=== PATIENT | male | born 1955 | race Caucasian/White ===

== ENCOUNTER → 2018-04-15 14:18 | Outpatient (CLI) | payer BC, SELFPAY ==
[2017-07-25 09:59] VITALS: BMI 55.3
[2018-04-15 15:59] LABS: Absolute Lymphocyte Count 1.88 X10^3/ul (0.83-4.51); Absolute Neutrophil Count 4.4 X10^3/uL (2.0-7.7); Basophil# 0.04 X10^3/uL; Basophil% 0.5 % (0-1); Eosinophil# 0.37 X10^3/uL; Hematocrit 46.6 % (40-54); Hemoglobin 15.4 g/dl (13.0-16.5); Lymphocyte # 1.88 X10^3/ul (4.0); Lymphocyte % 25.2 % (19-41); Mean Corpuscular Hgb 31.4 pg (27.0-32.0); Mean Corpuscular Volume 94.9 fL (80-94); Mean Platelet Vol. 10.1 fl (6.2-12.0); Monocyte# 0.72 X10^3/uL; Monocyte% 9.7 % (0-10); Neutrophil # 4.44 X10^3/uL (2.7-7.7); Neutrophil % 59.5 % (47-70); Platelet Count 190 K/mm3 (150-450); RBC Distribution Width CV 13.9 % (11.6-14.6); RBC Distribution Width SD 47.2 fl (35.1-43.9); Red Blood Count 4.91 M/mm3 (4.6-6.2); White Blood Count 7.5 K/mm3 (4.4-11.0)
[2018-04-15 16:04] LABS: POSITIVE COUNT NO; POSITIVE DIFFERENTIAL NO; POSITIVE MORPHOLOGY NO
[2018-04-15 16:16] LABS: ALB/GLOB Ratio 1.3 RATIO (0.9-2.4); AST(SGOT) 24 U/L (15-37); Alanine Aminotransfer ALT/SGPT 35 U/L (16-61); Albumin, Serum 3.8 g/dL (3.2-5.0); Alkaline Phosphatase 88 U/L (45-117); Anion Gap 9 (5-15); BUN 14 mg/dL (7-18); BUN/Creat Ratio 14.9 RATIO (10-20); Calcium,Total 8.8 mg/dL (8.5-10.1); Chloride 104 mmol/L (98-107); Creatinine, Serum 0.94 mg/dL (0.70-1.30); EST Glomerular Filtration Rate 87 mL/min (>60); Est Glom Filt Rate - Afr Amer 105 mL/min (>60); Glucose 99 mg/dL (74-106); Magnesium 2.3 mg/dL (1.6-2.6); Potassium 4.1 mmol/L (3.5-5.1); Protein, Total 6.8 g/dL (6.4-8.2); Sodium Level 143 mmol/L (136-145)
== END ==
PROVIDERS: Family Provider Family Medicine; PCP Family Medicine; Visit Provider Family Medicine
DX: R19.7 Diarrhea, unspecified (principal)
CPT/HCPCS: 36415; 80053; 83735; 85025

== ENCOUNTER → 2018-04-16 09:29 | Outpatient (CLI) | payer BC, SELFPAY ==
[2017-07-25 09:59] VITALS: BMI 55.3
[2018-04-21 10:33] LABS: Fats, Neutral Normal (.); Fats, Total Increased (.)
== END ==
PROVIDERS: Family Provider Family Medicine; PCP Family Medicine; Visit Provider Family Medicine
DX: R19.7 Diarrhea, unspecified (principal)
CPT/HCPCS: 82705; 83630; 87177; 87209; 87493; 87506

== ENCOUNTER → 2018-04-23 11:17 | Outpatient (CLI) | payer BC, SELFPAY ==
[2017-07-25 09:59] VITALS: BMI 55.3
--- NOTE | 2018-04-23 11:23 | RAD_ITS ---
STUDY: X-RAY CHEST REASON FOR EXAM: Male, 62 years old. Shortness of breath. TECHNIQUE: PA and lateral views of the chest. COMPARISON: 11/17/2016. FINDINGS: The lungs are clear and expanded. There is no demonstrated pleural abnormality. Normal size heart. Normal mediastinum and demetria. Normal visualized pulmonary arteries. Normal visualized aortic arch and descending thoracic aorta. There are degenerative changes of the visualized thoracic spine. Normal visualized ribs, clavicles, and shoulders. There is no demonstrated abnormality of the visualized soft tissue structures of the upper abdomen. RAD/Chest PA and Lateral IMPRESSION: No active pulmonary disease. Electronically Signed: Christiano Jones MD at 11:26 EST Tel , Service support ,
== END ==
PROVIDERS: Family Provider Family Medicine; PCP Family Medicine; Referring Provider Family Medicine; Visit Provider Family Medicine
DX: R06.02 Shortness of breath (principal)
CPT/HCPCS: 71046

== ENCOUNTER 2018-05-02 10:47 | Inpatient (IN) | payer BC, SELFPAY ==
[2018-05-02] VITALS (22 sets, daily range): BP systolic 100–144; BP diastolic 66–105; PULSE 74–186; RESP 18–31; TEMP 36.3–36.6; O2SAT 93–952; BMI 57.0; BMI 54.3
--- NOTE | 2018-05-02 10:56 | EKG12_ITS ---
Test Reason : CP Blood Pressure : / mmHG Vent. Rate : 151 BPM Atrial Rate : 096 BPM P-R Int : 000 ms QRS Dur : 078 ms QT Int : 328 ms P-R-T Axes : 000 -31 108 degrees QTc Int : 519 ms Atrial fibrillation with rapid ventricular response with premature ventricular or aberrantly conducte d complexes Left axis deviation Low voltage QRS Inferior infarct , age undetermined Cannot rule out Anterior infarct , age undetermined Abnormal ECG Confirmed by ALLISON BUNN, MARIA ISABEL ([id number]), script editor TAMI ALEXIS ([id number]) on 05/03/2018 2:21:27 PM Referred By: Marcus Alexis Confirmed By:MARIA ISABEL COOPER MD
--- NOTE | 2018-05-02 11:09 | RAD_ITS ---
STUDY: X-RAY CHEST REASON FOR EXAM: Male, 62 years old. Chest pain. Cough. TECHNIQUE: Multiple AP frontal views view obtained of the chest. COMPARISON: None. FINDINGS: The lungs are clear and expanded. There is no demonstrated pleural abnormality. Normal size heart. Normal mediastinum and demetria. Normal visualized pulmonary arteries. Normal visualized aortic arch and descending thoracic aorta. Normal visualized thoracic spine. Normal visualized ribs, clavicles, and shoulders. There is no demonstrated abnormality of the visualized soft tissue structures of the upper abdomen. RAD/Chest 1 View (Portable) IMPRESSION: Normal x-ray examination of the chest. Electronically Signed: Axel Segovia, at 11:18 EST Tel , Service support ,
--- NOTE | 2018-05-02 11:13 | CT_ITS ---
We are attempting to reach Min [facility] to discuss findings. An addendum with communication details will be sent when the communication is complete. STUDY: CTA CHEST REASON FOR EXAM: Male, 62 years old. Chest pain. Arrhythmia. History of pulmonary embolism. RADIATION DOSAGE (If Supplied By Facility): CTDIvol = ( 43.32 ) mGy, DLP = ( 798.55 ) mGycm TECHNIQUE: The examination was performed with the intravenous administration of Isovue 370 100 IV. Post-processing of the angiographic images was performed, with multiplanar reformation and 3D reconstruction. Individualized dose optimization techniques were used for this CT. COMPARISON: CT chest dated November 17, 2016 FINDINGS: Prominent filling defects are noted in the right hilar pulmonary arteries extending into the right lower lobe and middle lobe and right upper lobe pulmonary arteries. Filling defect is also noted in the left upper lobe and left lower lobe and lingular pulmonary arteries and in the main left hilar pulmonary artery. There are tiny wedge-shaped areas of consolidation in the lingula, lower lobes bilaterally, and right middle lobe possibly representing small areas of pulmonary infarction. Normal thoracic aorta and visualized great vessels. There is no demonstrated aortic dissection. Normal heart and pericardium. Normal mediastinum. Normal hilar regions. Normal visualized trachea and bronchi. The lungs are well expanded. Normal pulmonary parenchyma. Normal pleura. Normal chest wall structures. Normal osseous structures. Normal visualized upper abdomen. CT/CTA Chest W/WO Contrast IMPRESSION: Prominent pulmonary embolism noted in the pulmonary arteries bilaterally. Possible small parenchymal infarcts peripherally. Electronically Signed: Axel Segovia, at 12:27 EST Tel , Service support ,
--- NOTE | 2018-05-02 11:14 | ED.VISSUMM ---
- ER Visit Summary Date of Service: 05/02/18 Chief Complaint: [] Chest pain shortness of breath cough for about a week History of Present Illness: The patient is a 62 M [] hypertension who reports that basically he has had chest pain shortness of breath and cough for about a week he was seen by physician placed on unspecified medications that really did not help yesterday symptoms and test of intensified he came in today for evaluation, he has no history of [place] PE or DVT, or COPD he is noted to be in A. fib RVR rate 130 does not believe he has a history of A. fib, he has no history of DVT or PE he has had normal bowel bladder habits Physical Examination: [] Heart rate 130 A. fib RVR, pulse ox 92% room air General, no distress resting comfortably HEENT is generally unremarkable The neck is supple no adenopathy Cardiovascular, irregular rate and rhythm 130 Lungs, clear bilateral Abdomen, soft nontender Extremities, edema to his lower extremities Neurologic, awake alert answering questions appropriately moving all 4 extremities Test Results: [] Emergency Department Course and Treatment: [] EKG shows A. fib RVR the etiology is unclear differential is extensive screening labs Cardizem CTA Treatment Plan: [] EKG shows A. fib RVR, the lab studies are generally unremarkable see those reports, the CTA of the chest shows extensive bilateral pulmonary emboli he was started on weight-based heparin for no contraindications we spoke with the hospitalist arrange for admission to ICU for further management all the above he remains awake alert hemodynamically stable Disposition: [] Admit stable Impression: [] Extensive bilateral pulmonary emboli, A. fib RVR This note was generated with [employer] dictation software. It may contain incorrect words, spelling, and punctuation that were not noted in review of the chart prior to signing ED Disposition - Plan for ED Patient: Referrals: Tiarra Bravo MD [Primary Care Provider] -
[2018-05-02] MEDS: dilTIAZem 25 MG/5 ML Vial 20 MG IV BOLUS ×2 (11:15→18:22)
[2018-05-02 11:17] LABS: Absolute Lymphocyte Count 2.85 X10^3/ul (0.83-4.51); Absolute Neutrophil Count 11.6 X10^3/uL (2.0-7.7); Basophil# 0.02 X10^3/uL; Basophil% 0.1 % (0-1); Eosinophil# 0.05 X10^3/uL; Eosinophils% 0.3 % (0-5); Hematocrit 50.2 % (40-54); Hemoglobin 16.3 g/dl (13.0-16.5); Lymphocyte # 2.85 X10^3/ul (4.0); Lymphocyte % 18.1 % (19-41); Mean Corp Hgb Conc 32.5 g/gl (32-36); Mean Corpuscular Hgb 31.3 pg (27.0-32.0); Mean Corpuscular Volume 96.4 fL (80-94); Mean Platelet Vol. 9.9 fl (6.2-12.0); Monocyte# 1.21 X10^3/uL; Monocyte% 7.7 % (0-10); Neutrophil # 11.58 X10^3/uL (2.7-7.7); Neutrophil % 73.5 % (47-70); Platelet Count 247 K/mm3 (150-450); RBC Distribution Width CV 13.8 % (11.6-14.6); RBC Distribution Width SD 48.6 fl (35.1-43.9); Red Blood Count 5.21 M/mm3 (4.6-6.2); White Blood Count 15.8 K/mm3 (4.4-11.0)
--- NOTE | 2018-05-02 11:17 | ED.DCSUM_ITS ---
- ER Visit Summary Date of Service: 05/02/18 Chief Complaint: [] Chest pain shortness of breath cough for about a week History of Present Illness: The patient is a 62 M [] hypertension who reports that basically he has had chest pain shortness of breath and cough for about a week he was seen by physician placed on unspecified medications that really did not help yesterday symptoms and test of intensified he came in today for evaluation, he has no history of [place] PE or DVT, or COPD he is noted to be in A. fib RVR rate 130 does not believe he has a history of A. fib, he has no history of DVT or PE he has had normal bowel bladder habits Physical Examination: [] Heart rate 130 A. fib RVR, pulse ox 92% room air General, no distress resting comfortably HEENT is generally unremarkable The neck is supple no adenopathy Cardiovascular, irregular rate and rhythm 130 Lungs, clear bilateral Abdomen, soft nontender Extremities, edema to his lower extremities Neurologic, awake alert answering questions appropriately moving all 4 extremities Test Results: [] Emergency Department Course and Treatment: [] EKG shows A. fib RVR the etiology is unclear differential is extensive screening labs Cardizem CTA Treatment Plan: [] EKG shows A. fib RVR, the lab studies are generally unremarkable see those reports, the CTA of the chest shows extensive bilateral pulmonary emboli he was started on weight-based heparin for no contraindications we spoke with the hospitalist arrange for admission to ICU for further management all the above he remains awake alert hemodynamically stable Disposition: [] Admit stable Impression: [] Extensive bilateral pulmonary emboli, A. fib RVR This note was generated with [employer] dictation software. It may contain incorrect words, spelling, and punctuation that were not noted in review of the chart prior to signing ED Disposition - Plan for ED Patient: Referrals: Tiarra Bravo MD [Primary Care Provider] -
[2018-05-02 11:18] LABS: POSITIVE COUNT NO; POSITIVE DIFFERENTIAL NO; POSITIVE MORPHOLOGY NO
[2018-05-02 11:30] LABS: Anion Gap 14 (5-15); BUN 19 mg/dL (7-18); BUN/Creat Ratio 12.1 RATIO (10-20); Calcium,Total 8.7 mg/dL (8.5-10.1); Chloride 102 mmol/L (98-107); Creatinine, Serum 1.57 mg/dL (0.70-1.30); EST Glomerular Filtration Rate 48 mL/min (>60); Est Glom Filt Rate - Afr Amer 58 mL/min (>60); Estimated Creatinine Clearance 61.43 ml/min; Glucose 208 mg/dL (74-106); Potassium 3.8 mmol/L (3.5-5.1); Sodium Level 136 mmol/L (136-145)
[2018-05-02] MEDS: Enoxaparin 120 MG/0.8 ML Syringe SC (13:23)
--- NOTE | 2018-05-02 14:05 | ECHOCS_ITS ---
Reason For Study: Afib/Flutter Procedure This was a 2D Doppler, Color Flow transthoracic echocardiogram. Technically difficult study due to patient body habitus. Contrast injection performed,patient scanned sitting up due to SOB and Chest Pain from Bilateral PE's. Exam performed portable in patient room. Left Ventricle Normal LV size. Left ventricular systolic function is lower limits of normal. The estimated ejection fraction is 53 %. Unable to assess diastolic dysfunction due to arrhythmia. No regional wall motion abnormalities noted. Right Ventricle Normal RV size. Normal systolic function. Atria The left atrium is not well visualized. The right atrium is not well visualized. Mitral Valve Mitral valve not well visualized. Tricuspid Valve The tricuspid valve is not well visualized. Unable to estimate RV systolic pressure/pulmonary artery pressure due to technically difficult study. Aortic Valve The aortic valve is not well visualized. Great Vessels Normal aortic root. Pericardium/Pleural No pericardial effusion. Medication Diluted definity 3ml given slow IV push to enhance endocardial definition. MMode/2D Measurements & Calculations Ao root diam: 3.2 cm Doppler Measurements & Calculations MV E max janeen: 58.3 cm/sec Interpretation Summary Normal LV size. Left ventricular systolic function is lower limits of normal. The estimated ejection fraction is 53 %. Unable to assess diastolic dysfunction due to arrhythmia. Contrast injection was performed. Ordering Physician: Seb Cortes Referring Physician: Tiarra Bravo Performed By: Temo Carter RCS
--- NOTE | 2018-05-02 14:21 | HP.PCM_ITS ---
Problem List (1) Central sleep apnea Status: Chronic (2) History of pulmonary embolism Status: Chronic (3) Chest pain Status: Acute Qualifiers: (4) Hypertension Status: Chronic Qualifiers: (5) Morbid obesity Status: Chronic History of Present Illness Date of Admission: 05/02/18 Chief Complaint: Chest pain, shortness of breath. The patient is a 62 year old M who presents emergency room due to 1 week history of chest pain and shortness of breath. He was recently seen as outpatient and thought to have URI. He was placed on steroids and inhaler at that time. His shortness of breath came progressively worse. He was noted to have atrial fibrillation with RVR and extensive bilateral pulmonary emboli in ER. He denies palpitations. He reports he has dyspnea with very minimal activity. He does report he had a brief episode of atrial fibrillation in 2017. He reports it resolved on its own and he had a normal stress test at the time. To his knowledge, he has not had further atrial fibrillation since that time. He denies history of CAD, CHF. Patient reports he has also had a pulmonary embolism in the past, approximately 10 years ago. He reports he was [place] out of the [place] at that time and it was thought to be related to prolonged immobility. He was on Coumadin for acute treatment which was later discontinued. He denies family history of blood clots or clotting disorders. His past medical history includes hypertension, history of pulmonary embolism, central sleep apnea and morbid obesity. Past Medical History Past Medical History (Chronic Problems): Chronic Problems (Last Reviewed 07/25/17 @ 10:23 by JOSE Cade) Morbid obesity (Chronic) Central sleep apnea (Chronic) History of pulmonary embolism (Chronic) Hypertension (Chronic) Medical History: Medical History (Last Reviewed 07/25/17 @ 10:23 by Seb Turcios NP-C) Back pain M54.9 Knee pain M25.569 HTN (hypertension) I10 Allergies Penicillins Allergy (Verified 05/02/18 10:54) Anaphylaxis Sulfa (Sulfonamide Antibiotics) Allergy (Verified 05/02/18 10:54) Hives Home Medications: Ambulatory Orders Medication Instructions Recorded Lisinopril [Zestril] 40 mg PO DAILY 10/13/13 Multivitamin [Daily Multiple 1 ea PO DAILY 04/03/15 Vitamin] ascorbic acid (vitamin C) 500 mg 500 mg PO DAILY 07/25/17 capsule mecobalamin (vitamin B12) 5,000 5,000 mcg PO DAILY 07/25/17 mcg disintegrating tablet Albuterol Inhaler [Ventolin Hfa 2 puff INHALATION Q4H PRN PRN 05/02/18 (SP)] Aspirin [Aspir 81] 81 mg PO DAILY 05/02/18 Cholecalciferol (Vitamin D3) 2,000 unit PO DAILY 05/02/18 [Vitamin D3] Guaifenesin/Pseudoephedrne HCl 1 each PO PRN PRN 05/02/18 [Mucinex D ER 1,200-120 mg Tab] Prednisone 20 mg PO DAILY 05/02/18 proMETHazine/codeine soln 5 ml PO Q4H PRN PRN 05/02/18 [Phenergan with Codeine oral solution] Surgical History: Surgical History (Last Reviewed 07/25/17 @ 10:23 by JOSE Cade) History of back surgery Z98.890 History of knee surgery Z98.890 Surgical History: - - Right knee arthroscopy X3 followed by right total knee replacement, nose fracture surgical repair, L4-L5 and S1 fusion, tonsillectomy and adenoidectomy. Psychiatric History: No pertinent psych hx Lives: Spouse/ Significant Other Smoking Status: Never smoker Alcohol: None Drugs: None - *Family History Maternal History Items: - - from old age. Denies maternal cardiac history. Paternal History Items: - - secondary to glioblastoma. Review of Systems Constitutional: Denies: Chills, Fever, Weight Change HEENT: Denies: Head Aches, Sinus Congestion, Sinus Drainage Cardiovascular: Reports: Chest Pain. Denies: Edema, Palpitations, Syncope Respiratory: Reports: Cough, Shortness of Breath Gastrointestinal: Denies: Abdominal Pain, Nausea, Vomiting Genitourinary: Denies: Dysuria Musculoskeletal: Denies: Joint Pain, Joint Tenderness Skin: Denies: Rash, Wounds Neurological: Denies: Numbness, Tingling, Focal weakness Psychiatric: Denies: Anxiety, Depression, Homicidal Ideations, Suicidal Ideations Hematologic/ Lymphatic: Denies: Easy Bruising, Easy Bleeding VTE Information - Inpt Only VTE Present on Admission: Yes VTE Mechan Device Prophylaxis: None VTE Pharm Prophylaxis ordered?: Yes - Physical Exam General: Alert, Oriented x3, Cooperative HEENT: Atraumatic, PERRLA, EOMI, Normocephalic Neck: Supple, No JVD, Negative Carotid Bruits Lungs: Clear to auscultation, Diminished Cardiovascular: - - Atrial fibrillation, tachycardic Abdomen: Bowel Sounds Present, Soft, Non Tender, Non-Distended, Obese Extremities: No clubbing, No cyanosis, Capillary Refill Less than 3 Seconds, Edema - Nonpitting bilateral lower extremities Skin: No rashes, No breakdown Musculoskeletal: No Tenderness to Palpation of Joints or Extremities Neurological: Cranial nerves II-XII grossly intact, Neuro grossly intact Psych/Mental Status: Normal Affect, Appropriate Vital Signs Temp Pulse Resp BP Pulse Ox 97.6 F L 96 18 124/72 H 96 05/02/18 10:49 05/02/18 13:10 05/02/18 13:10 05/02/18 13:10 05/02/18 13:10 Oxygen Flow Rate (L/min) 2 Oxygen Delivery Method Room Air Weight: 458 lb 1.929 oz Body Mass Index (BMI) 54.3 Laboratory Tests Past 24 Hrs 05/02/18 05/02/18 10:50 10:50 WBC 15.8 H RBC 5.21 Hgb 16.3 Hct 50.2 MCV 96.4 H MCH 31.3 MCHC 32.5 RDW 13.8 RDW Differential 48.6 H Plt Count 247 MPV 9.9 Immature Gran % (Auto) 0.300 Neut % (Auto) 73.5 H Lymph % (Auto) 18.1 L [place] % (Auto) 7.7 Eos % (Auto) 0.3 Baso % (Auto) 0.1 Absolute Neuts (auto) 11.6 H Absolute Lymphs (auto) 2.85 Total Counted Not Reportable Sodium 136 Potassium 3.8 Chloride 102 Carbon Dioxide 20.0 L Anion Gap 14 BUN 19 H Creatinine 1.57 H Estim Creat Clear Calc 61.43 Est GFR (MDRD) Af Amer 58 L Est GFR (MDRD) Non-Af 48 L BUN/Creatinine Ratio 12.1 Glucose 208 H Calcium 8.7 Troponin I 0.075 H Assessment/Plan All Active Problems (Last Reviewed 07/25/17 @ 10:23 by Seb Turcios NP-C) Chest pain (Acute) 1. Extensive bilateral pulmonary emboli-CTA of chest on admission shows prominent pulmonary embolism noted in the pulmonary arteries bilaterally. Possible small parenchymal infarcts peripherally. Initiated on Lovenox therapeutic dosing twice daily. Will transition to Eliquis 10 mg twice daily for 7 days followed by 5 mg twice daily. Echocardiogram ordered. Continue supplement oxygen to maintain O2 at or above 90%. Will need walking pulse ox prior to discharge. 2. New onset atrial fibrillation with RVR-rate greater than 150 on admission. Patient received 20 mg IV Cardizem bolus x1 in ER. Heart rate improved. Patient reports a remote history of atrial fibrillation in the past. May require additional rate control. 3. Acute kidney injury-gentle IV fluids. Trend BMP. 4. Indeterminate troponin-suspect demand ischemia as a result of #2. Cycle enzymes. Patient had a normal stress test October 2016. Cardiology consulted. 5. Elevated glucose-possibly due to recent steroid use. Check hemoglobin A1c. 6. Hypertension-stable, continue home regimen. 7. Central sleep apnea-continue home BIPAP regimen. 8. Obesity-encouraged diet and lifestyle modifications. DVT prophylaxis- Eliquis This patient was seen by JOSE Hair under the supervision of Dr. Cortes.
--- NOTE | 2018-05-02 14:43 | PCM.CONS.C ---
Reason for Consult Date of Consultation: 05/02/18 Reason for Consultation: Shortness of breath and irregular heartbeat. History of Present Illness: The patient is a 62 year old M with no previous cardiac history other than obstructive sleep apnea who says that over the last couple of weeks he has been getting short of breath. He however says that over the last 2 days he has been markedly short of breath and yesterday he could not get any significant rest. Walking from the bedroom to the bathroom because significant symptoms. He had minimal intermittent chest discomfort with no radiation. There was no nausea or diaphoresis near syncope or syncope. This morning due to his marked shortness of breath his neighbor called the EMS who brought him to the ER. He was noted to be in atrial fibrillation with rapid ventricular response rate. A CT of his chest was done which demonstrated bilateral pulmonary emboli. He does a significant amount of travel and is also overweight. He does not use any tobacco products. He has had no previous history of pulmonary emboli. No previous history of DVT is noted though he thinks his calves have been swollen. [] Past Medical History Allergies/Adverse Reactions: Allergies Penicillins Allergy (Verified 05/02/18 10:54) Anaphylaxis Sulfa (Sulfonamide Antibiotics) Allergy (Verified 05/02/18 10:54) Hives Home Medications: Ambulatory Orders Medication Instructions Recorded Lisinopril [Zestril] 40 mg PO DAILY 10/13/13 Multivitamin [Daily Multiple 1 ea PO DAILY 04/03/15 Vitamin] ascorbic acid (vitamin C) 500 mg 500 mg PO DAILY 07/25/17 capsule mecobalamin (vitamin B12) 5,000 5,000 mcg PO DAILY 07/25/17 mcg disintegrating tablet Albuterol Inhaler [Ventolin Hfa 2 puff INHALATION Q4H PRN PRN 05/02/18 (SP)] Aspirin [Aspir 81] 81 mg PO DAILY 05/02/18 Cholecalciferol (Vitamin D3) 2,000 unit PO DAILY 05/02/18 [Vitamin D3] Guaifenesin/Pseudoephedrne HCl 1 each PO PRN PRN 05/02/18 [Mucinex D ER 1,200-120 mg Tab] Prednisone 20 mg PO DAILY 05/02/18 proMETHazine/codeine soln 5 ml PO Q4H PRN PRN 05/02/18 [Phenergan with Codeine oral solution] Past Medical History (Chronic Problems): Chronic Problems (Last Reviewed 07/25/17 @ 10:23 by JOSE Cade) Central sleep apnea (Chronic) History of pulmonary embolism (Chronic) Hypertension (Chronic) Surgical History: - - Right knee arthroscopy X2, nose fracture surgical repair, L4-L5 and S1 fusion. Psychiatric History: No pertinent psych hx - *Family History Maternal History Items: No pertinent history Paternal History Items: No pertinent history Lives: Spouse/ Significant Other Smoking Status: Never smoker Alcohol: None Drugs: None Review of Systems - Review of Systems General: Reports: Fatigue. Denies: Fever, Night Sweats HEENT: Denies: Vision Change Cardiovascular: Reports: Chest Discomfort at Rest, Shortness of Breath, Shortness of Breath at Rest, Shortness of Breath with Exertion, Palpitations. Denies: Chest Discomfort, Orthopnea, PND, Peripheral Edema, Lightheadedness, Dizziness, Near Syncope, Syncope Respiratory: Denies: Cough, Sputum Production, Hemoptysis Gastrointestinal: Denies: Hematemesis, Hematochezia, Melena Genitourinary: Denies: Dysuria, Hematuria Muscoloskeletal: Denies: Myalgias Skin: Denies: Rash Neurological: Denies: Dizziness Psychiatric: Denies: Anxiety Endocrine: Denies: Unexplained Weight Loss Hematologic/ Lymphatic: Denies: Anemia Subjectve: Pleasant gentleman in mild respiratory distress with difficulty speaking in full sentences Objective: Vital Signs Temp Pulse Resp BP Pulse Ox 97.4 F L 78 20 H 134/66 H 96 05/02/18 14:00 05/02/18 14:00 05/02/18 14:00 05/02/18 14:00 05/02/18 14:00 Oxygen Flow Rate (L/min) 4 Oxygen Delivery Method Nasal Cannula Weight: 458 lb 1.929 oz Body Mass Index (BMI) 54.3 General: Awake, Alert, Oriented x 3 HEENT: PERRL, EOMI, Sclera Non Icteric Neck: Supple, Good ROM, No Lymph Node Enlargement Lungs: Diminished Adriano Bases Cardiovascular: Irregular Rhythm, Normal S1, Normal S2, No Murmurs, No Rubs, No Gallops Vascular: No Carotid Bruits, Normal Femoral Pulses, Normal Radial Pulses, Normal Dorsalis Pedal Pulse, Normal Posterior Tibial Pulses Abdomen: Bowel Sounds Present, Soft, Non Tender, No HSM, No Organomegaly Extremities: No Cyanosis, No Clubbing, No edema Musculoskeletal: No Erythema Skin: No Rashes Lymphatic: No Lymph Node Enlargement Neurological: No Focal Motor or Sensory Deficit Psych/Mental Status: Appropriate 05/02/18 10:50: WBC 15.8 H, RBC 5.21, Hgb 16.3, Hct 50.2, MCV 96.4 H, MCH 31.3, MCHC 32.5, RDW 13.8, RDW Differential 48.6 H, Plt Count 247, MPV 9.9, Immature Gran % (Auto) 0.300, Neut % (Auto) 73.5 H, Lymph % (Auto) 18.1 L, [place] % (Auto) 7.7, Eos % (Auto) 0.3, Baso % (Auto) 0.1, Absolute Neuts (auto) 11.6 H, Total Counted Not Reportable 05/02/18 10:50: Sodium 136, Potassium 3.8, Chloride 102, Carbon Dioxide 20.0 L, Anion Gap 14, BUN 19 H, Creatinine 1.57 H, Est GFR (MDRD) Af Amer 58 L, Est GFR (MDRD) Non-Af 48 L, BUN/Creatinine Ratio 12.1, Glucose 208 H, Calcium 8.7, Troponin I 0.075 H Rhythm: EKG: Atrial fibrillation with a rapid ventricular response rate of 151 bpm Assessment/Plan 1. New onset atrial fibrillation Patient appears to have developed new onset atrial fibrillation with rapid ventricular response rate. The etiology of the above is likely secondary to his underlying pulmonary embolism. The exact duration is not clear at this particular time. The patient will be treated with anticoagulation as per PE regimen and his ventricular rate response controlled. An echocardiogram should be performed to assess his left ventricular function. 2. Acute bilateral pulmonary emboli He does have the substrate with obesity for pulmonary emboli. This appears to be fairly acute or subacute. He will be treated with Lovenox and subsequently apixaban. His mild troponin elevation is likely secondary to right ventricular strain. Doubt that there is any acute coronary ischemia present. 3. Shortness of breath He appears to be short of breath out of proportion to his pulmonary emboli. I would recommend that we obtain a natruretic peptide level and obtain an echocardiogram to assess his left ventricular function. If his natruretic peptide level is elevated we may need to treat him with diuretics gently. 4. Hypertension Does have a history of systemic hypertension. We will continue his CHANCE inhibitor. Thank you for allowing me to participate in the care of your patient. Please don't hesitate to call if any issues arise
--- NOTE | 2018-05-02 14:55 | CON.PCM_ITS ---
Reason for Consult Date of Consultation: 05/02/18 Reason for Consultation: Shortness of breath and irregular heartbeat. History of Present Illness: The patient is a 62 year old M with no previous cardiac history other than obstructive sleep apnea who says that over the last couple of weeks he has been getting short of breath. He however says that over the last 2 days he has been markedly short of breath and yesterday he could not get any significant rest. Walking from the bedroom to the bathroom because significant symptoms. He had minimal intermittent chest discomfort with no radiation. There was no nausea or diaphoresis near syncope or syncope. This morning due to his marked shortness of breath his neighbor called the EMS who brought him to the ER. He was noted to be in atrial fibrillation with rapid ventricular response rate. A CT of his chest was done which demonstrated bilateral pulmonary emboli. He does a significant amount of travel and is also overweight. He does not use any tobacco products. He has had no previous history of pulmonary emboli. No pre vious history of DVT is noted though he thinks his calves have been swollen. [] Past Medical History Allergies/Adverse Reactions: Allergies Penicillins Allergy (Verified 05/02/18 10:54) Anaphylaxis Sulfa (Sulfonamide Antibiotics) Allergy (Verified 05/02/18 10:54) Hives Home Medications: Ambulatory Orders Medication Instructions Recorded Lisinopril [Zestril] 40 mg PO DAILY 10/13/13 Multivitamin [Daily Multiple 1 ea PO DAILY 04/03/15 Vitamin] ascorbic acid (vitamin C) 500 mg 500 mg PO DAILY 07/25/17 capsule mecobalamin (vitamin B12) 5,000 5,000 mcg PO DAILY 07/25/17 mcg disintegrating tablet Albuterol Inhaler [Ventolin Hfa 2 puff INHALATION Q4H PRN PRN 05/02/18 (SP)] Aspirin [Aspir 81] 81 mg PO DAILY 05/02/18 Cholecalciferol (Vitamin D3) 2,000 unit PO DAILY 05/02/18 [Vitamin D3] Guaifenesin/Pseudoephedrne HCl 1 each PO PRN PRN 05/02/18 [Mucinex D ER 1,200-120 mg Tab] Prednisone 20 mg PO DAILY 05/02/18 proMETHazine/codeine soln 5 ml PO Q4H PRN PRN 03/03/19 [Phenergan with Codeine oral solution] Past Medical History (Chronic Problems): Chronic Problems (Last Reviewed 07/25/17 @ 10:23 by JOSE Cade) Central sleep apnea (Chronic) History of pulmonary embolism (Chronic) Hypertension (Chronic) Surgical History: - - Right knee arthroscopy X2, nose fracture surgical repair, L4-L5 and S1 fusion. Psychiatric History: No pertinent psych hx - *Family History Maternal History Items: No pertinent history Paternal History Items: No pertinent history Lives: Spouse/ Significant Other Smoking Status: Never smoker Alcohol: None Drugs: None Review of Systems - Review of Systems General: Reports: Fatigue. Denies: Fever, Night Sweats HEENT: Denies: Vision Change Cardiovascular: Reports: Chest Discomfort at Rest, Shortness of Breath, Shortness of Breath at Rest, Shortness of Breath with Exertion, Palpitations. Denies: Chest Discomfort, Orthopnea, PND, Peripheral Edema, Lightheadedness, Dizziness, Near Syncope, Syncope Respiratory: Denies: Cough, Sputum Production, Hemoptysis Gastrointestinal: Denies: Hematemesis, Hematochezia, Melena Genitourinary: Denies: Dysuria, Hematuria Muscoloskeletal: Denies: Myalgias Skin: Denies: Rash Neurological: Denies: Dizziness Psychiatric: Denies: Anxiety Endocrine: Denies: Unexplained Weight Loss Hematologic/ Lymphatic: Denies: Anemia Subjectve: Pleasant gentleman in mild respiratory distress with difficulty speaking in full sentences Objective: Vital Signs Temp Pulse Resp BP Pulse Ox 97.4 F L 78 20 H 134/66 H 96 05/02/18 14:00 05/02/18 14:00 05/02/18 14:00 05/02/18 14:00 05/02/18 14:00 Oxygen Flow Rate (L/min) 4 Oxygen Delivery Method Nasal Cannula Weight: 458 lb 1.929 oz Body Mass Index (BMI) 54.3 General: Awake, Alert, Oriented x 3 HEENT: PERRL, EOMI, Sclera Non Icteric Neck: Supple, Good ROM, No Lymph Node Enlargement Lungs: Diminished Adriano Bases Cardiovascular: Irregular Rhythm, Normal S1, Normal S2, No Murmurs, No Rubs, No Gallops Vascular: No Carotid Bruits, Normal Femoral Pulses, Normal Radial Pulses, Normal Dorsalis Pedal Pulse, Normal Posterior Tibial Pulses Abdomen: Bowel Sounds Present, Soft, Non Tender, No HSM, No Organomegaly Extremities: No Cyanosis, No Clubbing, No edema Musculoskeletal: No Erythema Skin: No Rashes Lymphatic: No Lymph Node Enlargement Neurological: No Focal Motor or Sensory Deficit Psych/Mental Status: Appropriate 05/02/18 10:50: WBC 15.8 H, RBC 5.21, Hgb 16.3, Hct 50.2, MCV 96.4 H, MCH 31.3, MCHC 32.5, RDW 13.8, RDW Differential 48.6 H, Plt Count 247, MPV 9.9, Immature Gran % (Auto) 0.300, Neut % (Auto) 73.5 H, Lymph % (Auto) 18.1 L, Scott % (Auto) 7.7, Eos % (Auto) 0.3, Baso % (Auto) 0.1, Absolute Neuts (auto) 11.6 H, Total Counted Not Reportable 05/02/18 10:50: Sodium 136, Potassium 3.8, Chloride 102, Carbon Dioxide 20.0 L, Anion Gap 14, BUN 19 H, Creatinine 1.57 H, Est GFR (MDRD) Af Amer 58 L, Est GFR (MDRD) Non-Af 48 L, BUN/Creatinine Ratio 12.1, Glucose 208 H, Calcium 8.7, Troponin I 0.075 H Rhythm: EKG: Atrial fibrillation with a rapid ventricular response rate of 151 bpm Assessment/Plan 1. New onset atrial fibrillation * Patient appears to have developed new onset atrial fibrillation with rapid ventricular response rate. The etiology of the above is likely secondary to his underlying pulmonary embolism. The exact duration is not clear at this particular time. * The patient will be treated with anticoagulation as per PE regimen and his ventricular rate response controlled. * An echocardiogram should be performed to assess his left ventricular function. * 2. Acute bilateral pulmonary emboli * He does have the substrate with obesity for pulmonary emboli. This appears to be fairly acute or subacute. He will be treated with Lovenox and subsequently apixaban. * His mild troponin elevation is likely secondary to right ventricular strain. Doubt that there is any acute coronary ischemia present. * 3. Shortness of breath * He appears to be short of breath out of proportion to his pulmonary emboli. I would recommend that we obtain a natruretic peptide level and obtain an echocardiogram to assess his left ventricular function. If his natruretic peptide level is elevated we may need to treat him with diuretics gently. * 4. Hypertension * Does have a history of systemic hypertension. * We will continue his CHANCE inhibitor. * * Thank you for allowing me to participate in the care of your patient. Please don't hesitate to call if any issues arise
[2018-05-02 15:22] LABS: Hemoglobin A1c 5.9 % (4.2-6.3)
[2018-05-02 15:26] LABS: BNP,B-Type NATRIURETIC PEPTIDE 288.3 pg/mL (0-100)
[2018-05-02] MEDS: Metoprolol Tartrate 25 MG Tablet PO (16:35)
[2018-05-02] MEDS: 0.9% Normal Saline 1,000 ML 60 ML IV (17:42)
[2018-05-02] MEDS: 0.9% NaCl Peripheral Flush Adult/Peds IV ×3 (17:54→21:04)
[2018-05-02] MEDS: Furosemide 40 MG/4 ML Vial IV (21:04)
[2018-05-02] MEDS: APIXABAN 5 MG TABLET 10 MG PO (21:05)
[2018-05-02] MEDS: Acetaminophen 325 MG Tablet 650 MG PO (21:11)
[2018-05-03] VITALS (22 sets, daily range): BP systolic 90–135; BP diastolic 69–105; PULSE 77–110; RESP 19–30; TEMP 36.4–36.9; O2SAT 77–98
[2018-05-03 06:23] LABS: Anion Gap 10 (5-15); BUN 19 mg/dL (7-18); BUN/Creat Ratio 20.4 RATIO (10-20); Calcium,Total 8.6 mg/dL (8.5-10.1); Chloride 104 mmol/L (98-107); Creatinine, Serum 0.93 mg/dL (0.70-1.30); EST Glomerular Filtration Rate 88 mL/min (>60); Est Glom Filt Rate - Afr Amer 106 mL/min (>60); Estimated Creatinine Clearance 106.45 ml/min; Glucose 100 mg/dL (74-106); Sodium Level 140 mmol/L (136-145)
--- NOTE | 2018-05-03 07:02 | PN.CARD_ITS ---
Subjectve: Patient seen and evaluated. Appears to be breathing somewhat better. Heart rate better controlled Objective: Vital Signs Temp Pulse Resp BP Pulse Ox 97.6 F L 87 20 H 112/83 H 95 05/03/18 06:00 05/03/18 06:00 05/03/18 06:00 05/03/18 06:00 05/03/18 06:00 Oxygen Flow Rate (L/min) 4 Oxygen Delivery Method CPAP Weight: 458 lb 1.929 oz Body Mass Index (BMI) 54.3 Intake and Output for Last 24 Hours 05/01/18 05/02/18 05/03/18 23:59 23:59 23:59 Intake Total 120 / 120 778.9 / 778.9 Output Total 1400 / 1400 Balance 120 / 120 -621.1 / -621.1 General: Awake, Alert, Oriented x 3, Obese HEENT: PERRL, EOMI, Sclera Non Icteric Neck: Supple, Good ROM, No Lymph Node Enlargement Lungs: Diminished Adriano Bases Cardiovascular: Irregular Rhythm, Normal S1, Normal S2, No Murmurs, No Rubs, No Gallops Vascular: No Carotid Bruits, Normal Femoral Pulses, Normal Radial Pulses, Normal Dorsalis Pedal Pulse, Normal Posterior Tibial Pulses Abdomen: Bowel Sounds Present, Soft, Non Tender, No HSM, No Organomegaly Extremities: No Cyanosis, No Clubbing, Bilateral Edema +1 Musculoskeletal: No Erythema Skin: No Rashes Neurological: No Focal Motor or Sensory Deficit Psych/Mental Status: Appropriate 05/02/18 10:50: WBC 15.8 H, RBC 5.21, Hgb 16.3, Hct 50.2, MCV 96.4 H, MCH 31.3, MCHC 32.5, RDW 13.8, RDW Differential 48.6 H, Plt Count 247, MPV 9.9, Immature Gran % (Auto) 0.300, Neut % (Auto) 73.5 H, Lymph % (Auto) 18.1 L, [place] % (Auto) 7.7, Eos % (Auto) 0.3, Baso % (Auto) 0.1, Absolute Neuts (auto) 11.6 H, Total Counted Not Reportable 05/02/18 10:50: Sodium 136, Potassium 3.8, Chloride 102, Carbon Dioxide 20.0 L, Anion Gap 14, BUN 19 H, Creatinine 1.57 H, Est GFR (MDRD) Af Amer 58 L, Est GFR (MDRD) Non-Af 48 L, BUN/Creatinine Ratio 12.1, Glucose 208 H, Calcium 8.7, Troponin I 0.075 H 05/02/18 10:50: B-Natriuretic Peptide 288.3 H 05/02/18 10:50: Hemoglobin A1c 5.9 05/02/18 14:40: Troponin I 0.105 H 05/02/18 17:20: Troponin I 0.089 H 05/03/18 05:35: Sodium 140, Potassium 4.0, Chloride 104, Carbon Dioxide 26.0, Anion Gap 10, BUN 19 H, Creatinine 0.93, Est GFR (MDRD) Af Amer 106, Est GFR (MDRD) Non-Af 88, BUN/Creatinine Ratio 20.4 H, Glucose 100, Calcium 8.6 Rhythm: EKG: ECHO: Stress Test: Cardiac Cath: PCI: CT Surgery: Holter monitor: EPS: PPM: CXR: Chest CT Scan: Medical Necessity - Tobacco Use Smoking Status: Never smoker Assessment/Plan 1. New onset atrial fibrillation * Patient appears to have developed new onset atrial fibrillation with rapid ventricular response rate. The etiology of the above is likely secondary to his underlying pulmonary embolism. The exact duration is not clear at this particular time. * The patient will be treated with anticoagulation as per PE regimen and his ventricular rate response controlled. * An echocardiogram should be performed to assess his left ventricular function. * Will be started on a beta-jhon and his IV Cardizem discontinued 2. Acute bilateral pulmonary emboli * He does have the substrate with obesity for pulmonary emboli. This appears to be fairly acute or subacute. He will be treated with Lovenox and subsequently apixaban. * His mild troponin elevation is likely secondary to right ventricular strain. Doubt that there is any acute coronary ischemia present. * 3. Shortness of breath * He appears to be short of breath out of proportion to his pulmonary emboli. * He appears to be in mild congestive heart failure and responded well to IV diuresis. We will continue today and assess left ventricular function. 4. Hypertension * Does have a history of systemic hypertension. * We will continue his CHANCE inhibitor. * * Thank you for allowing me to participate in the care of your patient. Please don't hesitate to call if any issues arise
[2018-05-03] MEDS: Furosemide 40 MG/4 ML Vial IV (07:15)
--- NOTE | 2018-05-03 08:15 | EKG12_ITS ---
Test Reason : CHEST PAIN Blood Pressure : / mmHG Vent. Rate : 097 BPM Atrial Rate : 100 BPM P-R Int : 000 ms QRS Dur : 084 ms QT Int : 370 ms P-R-T Axes : 000 -19 184 degrees QTc Int : 469 ms Atrial fibrillation Low voltage QRS Nonspecific T wave abnormality Prolonged QT Abnormal ECG When compared with ECG of 02-MAY-2018 14:45, MANUAL COMPARISON REQUIRED, DATA IS UNCONFIRMED Confirmed by ALLISON BUNN, MARIA ISABEL ([id number]), purchase request editor TAMI ALEXIS ([id number]) on 05/04/2018 12:58:55 PM Referred By: Marcus Alexis Confirmed By:MARIA ISABEL COOPER MD
--- NOTE | 2018-05-03 08:16 | CPS ---
upon entering room pt was sitting on side of bed with no cpap or nasal cannula on. Room air saturation was 77%. Pt stated he just used urinal. Pt placed cpap back on with 4lpm bleed in. Pt did c/o dizziness and was instructed to lay back in bed so he did not fall off side of bed. Saturation back up into 90's on Cpap. Pt's nurse informed of above events.
[2018-05-03] MEDS: APIXABAN 5 MG TABLET 10 MG PO ×2 (09:45→22:57)
[2018-05-03] MEDS: Metoprolol Tartrate 50 MG Tablet PO ×2 (09:45→22:57)
[2018-05-03] MEDS: Lisinopril 20 MG Tablet PO (09:45)
[2018-05-03] MEDS: Acetaminophen 325 MG Tablet 650 MG PO ×2 (11:14→17:49)
--- NOTE | 2018-05-03 12:00 | CASEMGMT ---
BABAK ARORA assessment: Face to Face with patient for initial transition planning/care coordination assessment. BABAK ARORA introduced self and role at [facility], pt voices understanding and consents to assessment at this time. Pt is sitting up in bed in no distress at this time. Pt is A/Ox4 at this time and answers all questions appropriately at this time. Care providers, pharmacy, and demographics verified at this time. PCP: Shelly Specialists: chris Fishman Preferred Pharmacy: [facility] Insurance: [facility] Prescription Benefit: [employer] Living Will/HPOA: Pt states has LW/HPOA and is aware that they are not currently on file at [facility] at this time. Pt states that his , Homa is HPOA. LNOK: Homa Berry, ; Sharita Berry, daughter Living Arrangements: Pt states lives with on main level of 2 story home and states no concerns at home at this time. Pt states is independent with ADL's. Transportation: Pt states drives self and states no transportation concerns at this time. DME/HHC: Pt states has CPAP thru [employer] and states no need for any further DME at this time. Pt states no hx of HHC or SNF in the past. Pt states no concerns with going home at time of discharge. 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 Pt states does not smoke or drink ETOH. Pt states no further concerns/needs at this time. CM to follow for Eliquis pricing, home oxygen, and for any further discharge planning/needs. Advised pt to ask for CM if any further questions/concerns/needs arise, voices understanding. Plan: Home [place] BABAK ARORA
--- NOTE | 2018-05-03 12:37 | PCM.PROGNOTE ---
Subjective: Patient seen and examined. Complains of continued shortness of breath and chest pain. Shortness of breath not significantly improved. - Physical Exam General: Alert, Oriented x3, Cooperative HEENT: Atraumatic, PERRLA, EOMI, Normocephalic Neck: Supple, No JVD, Negative Carotid Bruits Lungs: Clear to auscultation, Diminished Cardiovascular: - - Atrial fibrillation, rate controlled. Abdomen: Bowel Sounds Present, Soft, Non Tender, Non-Distended, Obese Extremities: No clubbing, No cyanosis, Capillary Refill Less than 3 Seconds, Edema - Bilateral lower extremity, nonpitting. Skin: No rashes, No breakdown Musculoskeletal: No Tenderness to Palpation of Joints or Extremities Neurological: Cranial nerves II-XII grossly intact, Neuro grossly intact Psych/Mental Status: Normal Affect, Appropriate Vital Signs Temp Pulse Resp BP Pulse Ox 97.9 F 94 19 H 117/89 H 97 05/03/18 11:00 05/03/18 11:09 05/03/18 11:00 05/03/18 11:00 05/03/18 11:00 Oxygen Flow Rate (L/min) 4 Oxygen Delivery Method Nasal Cannula Weight: 458 lb 1.929 oz Body Mass Index (BMI) 54.3 Intake and Output for Last 24 Hours 05/01/18 05/02/18 05/03/18 23:59 23:59 23:59 Intake Total 120 / 120 1403.9 / 1403.9 Output Total 2500 / 2500 Balance 120 / 120 -1096.1 / -1096.1 Laboratory Tests Past 24 Hrs 05/02/18 05/02/18 05/02/18 10:50 10:50 14:40 Sodium Potassium Chloride Carbon Dioxide Anion Gap BUN Creatinine Estim Creat Clear Calc Est GFR (MDRD) Af Amer Est GFR (MDRD) Non-Af BUN/Creatinine Ratio Glucose Hemoglobin A1c 5.9 Calcium Troponin I 0.105 H B-Natriuretic Peptide 288.3 H 05/02/18 05/03/18 17:20 05:35 Sodium 140 Potassium 4.0 Chloride 104 Carbon Dioxide 26.0 Anion Gap 10 BUN 19 H Creatinine 0.93 Estim Creat Clear Calc 106.45 Est GFR (MDRD) Af Amer 106 Est GFR (MDRD) Non-Af 88 BUN/Creatinine Ratio 20.4 H Glucose 100 Hemoglobin A1c Calcium 8.6 Troponin I 0.089 H B-Natriuretic Peptide Medical Necessity - Tobacco Use Smoking Status: Never smoker Assessment/Plan All Active Problems (Last Reviewed 07/25/17 @ 10:23 by JOSE Cade) Chest pain (Acute) 1. Acute hypoxic respiratory insufficiency secondary to extensive bilateral pulmonary emboli-CTA of chest on admission shows prominent pulmonary embolism noted in the pulmonary arteries bilaterally. Possible small parenchymal infarcts peripherally. Eliquis 10 mg twice daily for 7 days followed by 5 mg twice daily. Echocardiogram showed an EF of 53%. Continue supplement oxygen to maintain O2 at or above 90%. Will need walking pulse ox prior to discharge. 2. New onset atrial fibrillation with RVR-rate greater than 150 on admission. Patient received 20 mg IV Cardizem bolus x1 in ER followed by Cardizem drip. Cardizem discontinued and patient initiated on metoprolol 50 mg twice daily. Patient reports a remote history of atrial fibrillation in the past. Heart rate improved. 3. Acute kidney injury-resolved with IV fluids. 4. Indeterminate troponin-suspect demand ischemia as a result of #2. Enzymes did not trend. Patient had a normal stress test October 2016. Cardiology consulted. 5. Elevated glucose-due to recent steroid use. Hemoglobin A1c 5.9%. 6. Hypertension-stable, continue home lisinopril regimen. 7. Central sleep apnea-continue home BIPAP regimen. 8. Obesity-encouraged diet and lifestyle modifications. DVT prophylaxis- Fatmata This patient was seen by JOSE Hair under the supervision of Dr. Cortes.
--- NOTE | 2018-05-03 13:25 | SLEEP ---
Patient contacted to see if a retitration study was indicated d/t dx AFIB w RVR on admission. He spoke americo Clemente ( caravan park and camping ground manager). She explained reti indicated if return of signs/symptoms or trouble with compliance. He is wearing his bipap 100% of the past 30 nights via download of information. Settings are . He denies any return of s/s at this time. This information was communicated to his nurse Yuko as well as NESSA Nathan
[2018-05-04] VITALS (10 sets, daily range): BP systolic 104–132; BP diastolic 78–90; PULSE 63–106; RESP 18–25; TEMP 35.7–36.7; O2SAT 89–98
--- NOTE | 2018-05-04 08:13 | CPS ---
4LPM BLEED IN TO HOME UNIT
--- NOTE | 2018-05-04 08:59 | PN.CARD_ITS ---
Subjectve: Patient seen and evaluated. Appears to be breathing somewhat better. However still short of breath. Objective: Vital Signs Temp Pulse Resp BP Pulse Ox 97.6 F L 83 25 H 104/79 98 05/04/18 06:22 05/04/18 06:59 05/04/18 06:22 05/04/18 06:22 05/04/18 08:00 Oxygen Flow Rate (L/min) [At 4 REST on Room Air] Oxygen Flow Rate (L/min) [ 6 AMBULATION with Oxygen] Oxygen Flow Rate (L/min) [ 4 AMBULATING on Room Air] Oxygen Flow Rate (L/min) 4 Oxygen Delivery Method CPAP Weight: 458 lb 1.929 oz Body Mass Index (BMI) 54.3 Intake and Output for Last 24 Hours 05/02/18 05/03/18 05/04/18 23:59 23:59 23:59 Intake Total 120 / 120 2168.9 / 2168.9 0 / 0 Output Total 2800 / 2800 Balance 120 / 120 -631.1 / -631.1 0 / 0 General: Awake, Alert, Oriented x 3 HEENT: PERRL, EOMI, Sclera Non Icteric Neck: Supple, Good ROM, No Lymph Node Enlargement Lungs: Diminished Adriano Bases Cardiovascular: Irregular Rhythm, Normal S1, Normal S2, No Murmurs, No Rubs, No Gallops Vascular: No Carotid Bruits, Normal Femoral Pulses, Normal Radial Pulses, Normal Dorsalis Pedal Pulse, Normal Posterior Tibial Pulses Abdomen: Bowel Sounds Present, Soft, Non Tender, No HSM, No Organomegaly Extremities: No Cyanosis, No Clubbing, Bilateral Edema +1 Neurological: No Focal Motor or Sensory Deficit Psych/Mental Status: Appropriate Rhythm: EKG: ECHO: Stress Test: Cardiac Cath: PCI: CT Surgery: Holter monitor: EPS: PPM: CXR: Chest CT Scan: Medical Necessity - Tobacco Use Smoking Status: Never smoker Assessment/Plan 1. New onset atrial fibrillation * Patient appears to have developed new onset atrial fibrillation with rapid ventricular response rate. The etiology of the above is likely secondary to his underlying pulmonary embolism. The exact duration is not clear at this pa rticular time. * The patient will be treated with anticoagulation as per PE regimen and his ventricular rate response controlled. * An echocardiogram should be performed to assess his left ventricular function. * Will be started on a beta-jhon 2. Acute bilateral pulmonary emboli * He does have the substrate with obesity for pulmonary emboli. This appears to be fairly acute or subacute. He will be treated with Lovenox and subsequently apixaban. * His mild troponin elevation is likely secondary to right ventricular strain. Doubt that there is any acute coronary ischemia present. * 3. Shortness of breath * He appears to be short of breath out of proportion to his pulmonary emboli. * He appears to be in mild congestive heart failure and responded well to IV diuresis. * His echocardiogram done demonstrated mild global reduction in left ventricular systolic function. 4. Hypertension * Does have a history of systemic hypertension. * We will continue his CHANCE inhibitor. * * * Above discussed with the hospitalist. Would follow-up in office in 2-4 weeks. * Thank you for allowing me to participate in the care of your patient. Please don't hesitate to call if any issues arise
[2018-05-04] MEDS: Metoprolol Tartrate 50 MG Tablet PO (10:28)
[2018-05-04] MEDS: APIXABAN 5 MG TABLET 10 MG PO (10:28)
[2018-05-04] MEDS: Lisinopril 20 MG Tablet PO (10:28)
--- NOTE | 2018-05-04 10:53 | CASEMGMT ---
Fatmata e-scribed to [facility] retail pharm previously. Call to Dejan at [facility] retail [facility] and he states that pt has no co-pay for Eliquis at this time. Per Shruthi HILLIARD, pt did not qualify for home oxygen at this time. She states that the lowest pt dropped while walking was 89%. Diamante OLVERAC aware, voices understanding. Phani HILLIARD CM
--- NOTE | 2018-05-04 11:19 | DCINST_ITS ---
- Discharge Diagnoses Current Active Problems: Current Active and Chronic Problems (Last Reviewed 07/25/17 @ 10:23 by JOSE Cade) New onset atrial fibrillation Morbid obesity (Chronic) Bilateral pulmonary emboli Central Sleep Apnea Hypertension You will use the following diet at home:: Calorie/Carbohydrate Controlled (specify 1200, 1400, etc) Discharge Activity: Return to Normal Activity Call your doctor if you observe: Shortness of breath, Dizziness, Fainting spells, Chest pain Allergies/Adverse Reactions: Allergies Penicillins Allergy (Verified 05/02/18 10:54) Anaphylaxis Sulfa (Sulfonamide Antibiotics) Allergy (Verified 05/02/18 10:54) Hives Medications to take at Discharge Multivitamin [Daily Multiple Vitamin] 1 ea PO DAILY 04/03/15 ascorbic acid (vitamin C) 500 mg capsule 500 mg PO DAILY 07/25/17 mecobalamin (vitamin B12) 5,000 mcg disintegrating tablet 5,000 mcg PO DAILY 07/25/17 Albuterol Inhaler [Ventolin Hfa] 2 puff INHALATION Q4H PRN PRN 05/02/18 Cholecalciferol (Vitamin D3) [Vitamin D3] 2,000 unit PO DAILY 05/02/18 Guaifenesin/Pseudoephedrne HCl [Mucinex D ER 1,200-120 mg Tab] 1 each PO PRN PRN 05/02/18 proMETHazine/codeine soln [Phenergan with Codeine oral solution] 5 ml PO Q4H PRN PRN 05/02/18 Apixaban [Eliquis] 10 mg PO BID #80 tablet 05/03/18 Furosemide 40 mg PO DAILY #30 tablet 05/04/18 Lisinopril [Zestril] 20 mg PO DAILY tablet 05/04/18 Metoprolol Tartrate [Lopressor (beta jhon)] 50 mg PO BID #60 tablet 05/04/18 The following prescriptions were given: Furosemide 40 mg PO DAILY #30 tablet Apixaban [Eliquis] 10 mg PO BID #80 tablet Metoprolol Tartrate [Lopressor (beta jhon)] 50 mg PO BID #60 tablet Primary Care Physician: Tiarra Bravo MD [Primary Care Provider] - Please follow up with your Primary Care Physician in: 1-2 Weeks Test Results: Test results from this visit will be discussed in further detail at your follow- up appointment, if applicable. Please Follow Up With: Terell Shore MD When: 3 Weeks Proposed Discharge Date: 05/04/18
--- NOTE | 2018-05-04 12:24 | PHA.DC.MC ---
Pharmacy Service has performed discharge medication reconciliation and counseling for this patient. The patient's discharge medication list was reviewed for discrepancies and discrepancies were resolved. The patient was counseled on the following discharge medications and changes in medications for homegoing were reviewed. Apixaban [Eliquis] 10 mg PO BID #80 tablet 05/03/18 Furosemide 40 mg PO DAILY #30 tablet 05/04/18 Metoprolol Tartrate [Lopressor (beta jhon)] 50 mg PO BID #60 tablet 05/04/18 The Reason for Use, instructions for use, and potential side effects were reviewed for all new medications. The patient's questions regarding all of their medications were answered. The patient was able to verbally demonstrate an understanding of their discharge medications. Home Medications Multivitamin [Daily Multiple Vitamin] 1 ea PO DAILY 04/03/15 ascorbic acid (vitamin C) 500 mg capsule 500 mg PO DAILY 07/25/17 mecobalamin (vitamin B12) 5,000 mcg disintegrating tablet 5,000 mcg PO DAILY 07/25/17 Albuterol Inhaler [Ventolin Hfa] 2 puff INHALATION Q4H PRN PRN 05/02/18 Cholecalciferol (Vitamin D3) [Vitamin D3] 2,000 unit PO DAILY 05/02/18 Guaifenesin/Pseudoephedrne HCl [Mucinex D ER 1,200-120 mg Tab] 1 each PO PRN PRN 05/02/18 proMETHazine/codeine soln [Phenergan with Codeine oral solution] 5 ml PO Q4H PRN PRN 05/02/18 Apixaban [Eliquis] 10 mg PO BID #80 tablet 05/03/18 Furosemide 40 mg PO DAILY #30 tablet 05/04/18 Lisinopril [Zestril] 20 mg PO DAILY tablet 05/04/18 Metoprolol Tartrate [Lopressor (beta jhon)] 50 mg PO BID #60 tablet 05/04/18
--- NOTE | 2018-05-04 13:37 | PCM.DC.SUM ---
Discharge Date and Diagnosis Date of Admission: 05/02/18 Date of Discharge: 05/04/18 - Primary Discharge Diagnosis 1. Acute hypoxic respiratory insufficiency secondary to extensive bilateral pulmonary emboli 2. New onset atrial fibrillation with RVR 3. Acute kidney injury 4. Indeterminate troponin-suspect demand ischemia as a result of #2. 5. Hypertension 6. Central sleep apnea 7. Obesity 8. Mild acute diastolic CHF secondary to #1/#2 - Secondary Discharge Diagnosis Chronic Problems (Last Reviewed 07/25/17 @ 10:23 by Seb Turcios NP-[facility]) Morbid obesity (Chronic) Central sleep apnea (Chronic) History of pulmonary embolism (Chronic) Hypertension (Chronic) Hospital Course and Treatment Imaging Results: Diagnostic Data Chest X-Ray 05/02/18 11:09 IMPRESSION: Normal x-ray examination of the chest. Electronically Signed: Axel Segovia, at 11:18 EST Tel , Service support , Chest CTA 05/02/18 11:13 IMPRESSION: Prominent pulmonary embolism noted in the pulmonary arteries bilaterally. Possible small parenchymal infarcts peripherally. Electronically Signed: Axel Segovia, at 12:27 EST Tel , Service support , ADDENDUM: 05/02/18 1319 IMPRESSION: Prominent pulmonary embolism noted in the pulmonary arteries bilaterally. Possible small parenchymal infarcts peripherally. N.B. : The above information has been verbally conveyed by Axel Segovia to Min Liz MD, on 05/02/2018 13:12:52 (ET). Electronically Signed: Axel Segovia, at 12:27 EST Tel , Service support , Dr. Shore- Cardiology Operations: None Procedures: 2-D Echocardiogram Summary of Care Provided: The patient is a 62 year old M admitted 05/02/2018 due to chest pain, shortness of breath. 1. Acute hypoxic respiratory insufficiency secondary to extensive bilateral pulmonary emboli-CTA of chest on admission shows prominent pulmonary embolism noted in the pulmonary arteries bilaterally. Possible small parenchymal infarcts peripherally. Eliquis 10 mg twice daily for 7 days followed by 5 mg twice daily. Echocardiogram showed an EF of 53%. Patient was weaned off of supplemental oxygen. Walking pulse ox completed and patient did not require further supplemental oxygen at discharge. Follow-up with primary care physician in 1-2 weeks. Follow-up with cardiology in 3 weeks. 2. New onset atrial fibrillation with RVR-rate greater than 150 on admission. Patient received 20 mg IV Cardizem bolus x1 in ER followed by Cardizem drip. Cardizem discontinued and patient initiated on metoprolol 50 mg twice daily. Patient reports a remote history of atrial fibrillation in the past. Heart rate stable. 3. Acute kidney injury-resolved with IV fluids. 4. Indeterminate troponin-suspect demand ischemia as a result of #2. Enzymes did not trend. Patient had a normal stress test October 2016. 5. Elevated glucose-due to recent steroid use. Hemoglobin A1c 5.9%. 6. Hypertension-home lisinopril regimen decreased to 20 mg daily. 7. Central sleep apnea-continue home BIPAP regimen. 8. Obesity-encouraged diet and lifestyle modifications. 9. Mild acute diastolic CHF-secondary #1/#2. Echocardiogram with EF 53%. Patient discharged with Lasix 40 mg p.o. daily. Continue lisinopril regimen. General: Alert, Oriented x3, Cooperative HEENT: Atraumatic, PERRLA, EOMI, Normocephalic Neck: Supple, No JVD, Negative Carotid Bruits Lungs: Clear to auscultation, Diminished Cardiovascular: - - Atrial fibrillation, rate controlled. Abdomen: Bowel Sounds Present, Soft, Non Tender, Non-Distended, Obese Extremities: No clubbing, No cyanosis, Capillary Refill Less than 3 Seconds, no edema Skin: No rashes, No breakdown Musculoskeletal: No Tenderness to Palpation of Joints or Extremities Neurological: Cranial nerves II-XII grossly intact, Neuro grossly intact Psych/Mental Status: Normal Affect, Appropriate Patient seen and examined prior to discharge. Physical assessment as noted above. Patient is stable for discharge with follow up recommendations as noted above. This patient was seen by JOSE Hair under the supervision of Dr. Cortes. - Physical Exam Vital Signs Temp Pulse Resp BP Pulse Ox 96.8 F L 106 H 18 124/88 H 95 05/04/18 13:06 05/04/18 13:06 05/04/18 13:06 05/04/18 13:06 05/04/18 13:06 Oxygen Flow Rate (L/min) [At 4 REST on Room Air] Oxygen Flow Rate (L/min) [ 6 AMBULATION with Oxygen] Oxygen Flow Rate (L/min) [ 4 AMBULATING on Room Air] Oxygen Flow Rate (L/min) 4 Oxygen Delivery Method Room Air Weight: 458 lb 1.929 oz Body Mass Index (BMI) 54.3 Intake and Output for Last 24 Hours 05/02/18 05/03/18 05/04/18 23:59 23:59 23:59 Intake Total 120 / 120 2168.9 / 2168.9 0 / 0 Output Total 2800 / 2800 Balance 120 / 120 -631.1 / -631.1 0 / 0 Discharge Diet: 1800 Calorie Control Diet Discharge Activity: Return to Normal Activity Call your doctor if you observe: Shortness of breath, Dizziness, Fainting spells, Chest pain Home Medications: Medications to take at Discharge Multivitamin [Daily Multiple Vitamin] 1 ea PO DAILY 04/03/15 ascorbic acid (vitamin C) 500 mg capsule 500 mg PO DAILY 07/25/17 mecobalamin (vitamin B12) 5,000 mcg disintegrating tablet 5,000 mcg PO DAILY 07/25/17 Albuterol Inhaler [Ventolin Hfa] 2 puff INHALATION Q4H PRN PRN 05/02/18 Cholecalciferol (Vitamin D3) [Vitamin D3] 2,000 unit PO DAILY 05/02/18 Guaifenesin/Pseudoephedrne HCl [Mucinex D ER 1,200-120 mg Tab] 1 each PO PRN PRN 05/02/18 proMETHazine/codeine soln [Phenergan with Codeine oral solution] 5 ml PO Q4H PRN PRN 05/02/18 Apixaban [Eliquis] 10 mg PO BID #80 tablet 05/03/18 Furosemide 40 mg PO DAILY #30 tablet 05/04/18 Lisinopril [Zestril] 20 mg PO DAILY tablet 05/04/18 Metoprolol Tartrate [Lopressor (beta jhon)] 50 mg PO BID #60 tablet 05/04/18 Following Prescrptions Were Given to Patient: Furosemide 40 mg PO DAILY #30 tablet Apixaban [Eliquis] 10 mg PO BID #80 tablet Metoprolol Tartrate [Lopressor (beta jhon)] 50 mg PO BID #60 tablet Primary Care Physician: Tiarra Bravo MD [Primary Care Provider] - Please follow up with your Primary Care Physician in: 1-2 Weeks Please Follow Up With: Terell Shore MD When: 3 Weeks Disposition: Home Minutes spent on discharge:: 35 Patient Condition:: Stable Medical Necessity - Tobacco Use Smoking Status: Never smoker Meaningful Use Info Meaningful Use Diagnoses (Choose all that apply): CHF, VTE - CHF CHANCE/ARB ordered at discharge?: Yes Documented LVEF (%): 53 - VTE Anticoag overlap given w/in hospital stay or rx'd at dc?: Yes Pt receive overlap for 5 days?: Yes
--- NOTE | 2018-05-04 13:41 | DS.PCM_ITS ---
Discharge Date and Diagnosis Date of Admission: 05/02/18 Date of Discharge: 05/04/18 - Primary Discharge Diagnosis 1. Acute hypoxic respiratory insufficiency secondary to extensive bilateral pulmonary emboli 2. New onset atrial fibrillation with RVR 3. Acute kidney injury 4. Indeterminate troponin-suspect demand ischemia as a result of #2. 5. Hypertension 6. Central sleep apnea 7. Obesity 8. Mild acute diastolic CHF secondary to #1/#2 - Secondary Discharge Diagnosis Chronic Problems (Last Reviewed 07/25/17 @ 10:23 by Seb Turcios NP-[facility]) Morbid obesity (Chronic) Central sleep apnea (Chronic) History of pulmonary embolism (Chronic) Hypertension (Chronic) Hospital Course and Treatment Imaging Results: Diagnostic Data Chest X-Ray 05/02/18 11:09 IMPRESSION: Normal x-ray examination of the chest. Electronically Signed: Axel Segovia, at 11:18 EST Tel , Service support , Chest CTA 05/02/18 11:13 IMPRESSION: Prominent pulmonary embolism noted in the pulmonary arteries bilaterally. Possible small parenchymal infarcts peripherally. Electronically Signed: Axel Segovia, at 12:27 EST Tel , Service support , ADDENDUM: 05/02/18 1319 IMPRESSION: Prominent pulmonary embolism noted in the pulmonary arteries bilaterally. Possible small parenchymal infarcts peripherally. N.B. : The above information has been verbally conveyed by Axel Segovia to Min Liz MD, on 05/02/2018 13:12:52 (ET). Electronically Signed: Axel Segovia, at 12:27 EST Tel , Service support , Dr. Shore- Cardiology Operations: None Procedures: 2-D Echocardiogram Summary of Care Provided: The patient is a 62 year old M admitted 05/02/2018 due to chest pain, shortness of breath. 1. Acute hypoxic respiratory insufficiency secondary to extensive bilateral pulmonary emboli-CTA of chest on admission shows prominent pulmonary embolism noted in the pulmonary arteries bilaterally. Possible small parenchymal infarcts peripherally. Eliquis 10 mg twice daily for 7 days followed by 5 mg twice daily. Echocardiogram showed an EF of 53%. Patient was weaned off of supplemental oxygen. Walking pulse ox completed and patient did not require further supplemental oxygen at discharge. Follow-up with primary care physician in 1-2 weeks. Follow-up with cardiology in 3 weeks. 2. New onset atrial fibrillation with RVR-rate greater than 150 on admission. Patient received 20 mg IV Cardizem bolus x1 in ER followed by Cardizem drip. Cardizem discontinued and patient initiated on metoprolol 50 mg twice daily. Patient reports a remote history of atrial fibrillation in the past. Heart rate stable. 3. Acute kidney injury-resolved with IV fluids. 4. Indeterminate troponin-suspect demand ischemia as a result of #2. Enzymes did not trend. Patient had a normal stress test October 2016. 5. Elevated glucose-due to recent steroid use. Hemoglobin A1c 5.9%. 6. Hypertension-home lisinopril regimen decreased to 20 mg daily. 7. Central sleep apnea-continue home BIPAP regimen. 8. Obesity-encouraged diet and lifestyle modifications. 9. Mild acute diastolic CHF-secondary #1/#2. Echocardiogram with EF 53%. Patient discharged with Lasix 40 mg p.o. daily. Continue lisinopril regimen. General: Alert, Oriented x3, Cooperative HEENT: Atraumatic, PERRLA, EOMI, Normocephalic Neck: Supple, No JVD, Negative Carotid Bruits Lungs: Clear to auscultation, Diminished Cardiovascular: - - Atrial fibrillation, rate controlled. Abdomen: Bowel Sounds Present, Soft, Non Tender, Non-Distended, Obese Extremities: No clubbing, No cyanosis, Capillary Refill Less than 3 Seconds, no edema Skin: No rashes, No breakdown Musculoskeletal: No Tenderness to Palpation of Joints or Extremities Neurological: Cranial nerves II-XII grossly intact, Neuro grossly intact Psych/Mental Status: Normal Affect, Appropriate Patient seen and examined prior to discharge. Physical assessment as noted above. Patient is stable for discharge with follow up recommendations as noted above. This patient was seen by JOSE Hair under the supervision of Dr. Cortes. - Physical Exam Vital Signs Temp Pulse Resp BP Pulse Ox 96.8 F L 106 H 18 124/88 H 95 05/04/18 13:06 05/04/18 13:06 05/04/18 13:06 05/04/18 13:06 05/04/18 13:06 Oxygen Flow Rate (L/min) [At 4 REST on Room Air] Oxygen Flow Rate (L/min) [ 6 AMBULATION with Oxygen] Oxygen Flow Rate (L/min) [ 4 AMBULATING on Room Air] Oxygen Flow Rate (L/min) 4 Oxygen Delivery Method Room Air Weight: 458 lb 1.929 oz Body Mass Index (BMI) 54.3 Intake and Output for Last 24 Hours 05/02/18 05/03/18 05/04/18 23:59 23:59 23:59 Intake Total 120 / 120 2168.9 / 2168.9 0 / 0 Output Total 2800 / 2800 Balance 120 / 120 -631.1 / -631.1 0 / 0 Discharge Diet: 1800 Calorie Control Diet Discharge Activity: Return to Normal Activity Call your doctor if you observe: Shortness of breath, Dizziness, Fainting spells, Chest pain Home Medications: Medications to take at Discharge Multivitamin [Daily Multiple Vitamin] 1 ea PO DAILY 04/03/15 ascorbic acid (vitamin C) 500 mg capsule 500 mg PO DAILY 07/25/17 mecobalamin (vitamin B12) 5,000 mcg disintegrating tablet 5,000 mcg PO DAILY 07/25/17 Albuterol Inhaler [Ventolin Hfa] 2 puff INHALATION Q4H PRN PRN 05/02/18 Cholecalciferol (Vitamin D3) [Vitamin D3] 2,000 unit PO DAILY 05/02/18 Guaifenesin/Pseudoephedrne HCl [Mucinex D ER 1,200-120 mg Tab] 1 each PO PRN PRN 05/02/18 proMETHazine/codeine soln [Phenergan with Codeine oral solution] 5 ml PO Q4H PRN PRN 05/02/18 Apixaban [Eliquis] 10 mg PO BID #80 tablet 05/03/18 Furosemide 40 mg PO DAILY #30 tablet 05/04/18 Lisinopril [Zestril] 20 mg PO DAILY tablet 05/04/18 Metoprolol Tartrate [Lopressor (beta jhon)] 50 mg PO BID #60 tablet 05/04/18 Following Prescrptions Were Given to Patient: Furosemide 40 mg PO DAILY #30 tablet Apixaban [Eliquis] 10 mg PO BID #80 tablet Metoprolol Tartrate [Lopressor (beta jhon)] 50 mg PO BID #60 tablet Primary Care Physician: Tiarra Bravo MD [Primary Care Provider] - Please follow up with your Primary Care Physician in: 1-2 Weeks Please Follow Up With: Terell Shore MD When: 3 Weeks Disposition: Home Minutes spent on discharge:: 35 Patient Condition:: Stable Medical Necessity - Tobacco Use Smoking Status: Never smoker Meaningful Use Info Meaningful Use Diagnoses (Choose all that apply): CHF, VTE - CHF CHANCE/ARB ordered at discharge?: Yes Documented LVEF (%): 53 - VTE Anticoag overlap given w/in hospital stay or rx'd at dc?: Yes Pt receive overlap for 5 days?: Yes
== END 2018-05-04 14:20 | disposition home or self-care (01) | DRG 175 ==
LOC: ED 12:19 → ICU 13:23 → PCU 13:37
PROVIDERS: Internal Medicine Cardiovascular Disease; Nurse Practitioner Family; Admitting Provider Internal Medicine; Emergency Provider Emergency Medicine; Family Provider Family Medicine; PCP Family Medicine; Visit Provider Internal Medicine
DX: I26.99 Other pulmonary embolism without acute cor pulmonale (principal); I50.31 Acute diastolic (congestive) heart failure; Z68.43 Body mass index [BMI] 50.0-59.9, adult; N17.9 Acute kidney failure, unspecified; I24.8 Other forms of acute ischemic heart disease; I48.91 Unspecified atrial fibrillation; E66.01 Morbid (severe) obesity due to excess calories; Z86.711 Personal history of pulmonary embolism; I10 Essential (primary) hypertension; G47.31 Primary central sleep apnea; R06.89 Other abnormalities of breathing; R09.02 Hypoxemia; I11.0 Hypertensive heart disease with heart failure
CPT/HCPCS: 36415; 71045; 71275; 80048; 83036; 83880; 84484; 85025; 93005; 93306; 99283; J7030; Q9957; Q9967; A4216; C8929; J1940

== ENCOUNTER → 2018-06-14 13:48 | Outpatient (CLI) | payer BC, SELFPAY ==
[2018-05-26 08:24] VITALS: BMI 52.4
== END ==
PROVIDERS: Family Provider Family Medicine; PCP Family Medicine; Referring Provider Nurse Practitioner Family; Visit Provider Nurse Practitioner Family
DX: I10 Essential (primary) hypertension (principal); I48.0 Paroxysmal atrial fibrillation; E78.5 Hyperlipidemia, unspecified; E66.01 Morbid (severe) obesity due to excess calories; Z86.711 Personal history of pulmonary embolism
CPT/HCPCS: 93225; 93226

== ENCOUNTER → 2018-07-01 09:27 | Outpatient (CLI) | payer BC, SELFPAY ==
[2018-05-26 08:24] VITALS: BMI 52.4
[2018-07-01 13:06] LABS: AST(SGOT) 22 U/L (15-37); Alanine Aminotransfer ALT/SGPT 29 U/L (16-61); Albumin, Serum 3.9 g/dL (3.2-5.0); Alkaline Phosphatase 103 U/L (45-117); Bilirubin, Direct 0.27 mg/dL (0.00-0.30); Cholesterol 159 mg/dL (200); High Density Lipoprotein 31 mg/dL; Protein, Total 6.9 g/dL (6.4-8.2); Triglycerides 114 mg/dL; Very Low Density Lipoprotein 23 mg/dL (5-40)
== END ==
PROVIDERS: Family Provider Family Medicine; PCP Family Medicine; Referring Provider Family Medicine; Visit Provider Internal Medicine Cardiovascular Disease
DX: E78.5 Hyperlipidemia, unspecified (principal); I11.0 Hypertensive heart disease with heart failure; I50.32 Chronic diastolic (congestive) heart failure; I26.99 Other pulmonary embolism without acute cor pulmonale; I48.0 Paroxysmal atrial fibrillation; I48.1 Persistent atrial fibrillation
CPT/HCPCS: 36415; 80061; 80076

== ENCOUNTER 2018-07-13 10:09 | Day surgery (SDC) | payer BC, SELFPAY ==
[2018-07-07 12:51] VITALS: BMI 53.1
[2018-07-07 17:00] LABS: Anion Gap 4 (5-15); BUN 13 mg/dL (7-18); BUN/Creat Ratio 15.5 RATIO (10-20); Calcium,Total 8.7 mg/dL (8.5-10.1); Chloride 106 mmol/L (98-107); Creatinine, Serum 0.84 mg/dL (0.70-1.30); EST Glomerular Filtration Rate 99 mL/min (>60); Est Glom Filt Rate - Afr Amer 120 mL/min (>60); Glucose 80 mg/dL (74-106); Potassium 3.7 mmol/L (3.5-5.1); Sodium Level 138 mmol/L (136-145)
[2018-07-12 16:25] VITALS: BMI 53.1
--- NOTE | 2018-07-13 10:42 | EKG12_ITS ---
Test Reason : PRE CVERSION Blood Pressure : / mmHG Vent. Rate : 081 BPM Atrial Rate : 104 BPM P-R Int : 000 ms QRS Dur : 090 ms QT Int : 392 ms P-R-T Axes : 000 -17 044 degrees QTc Int : 455 ms Atrial fibrillation with premature ventricular or aberrantly conducted complexes Low voltage QRS Abnormal ECG No previous ECGs available Confirmed by SHERRI PRICE ([id number]), clinical editor TAMI TIPTON ([id number]) on 07/19/2018 4:56:59 PM Referred By: Terell Shore Confirmed By:COLUMBA PRICE
--- NOTE | 2018-07-13 12:37 | PCM.OP.PRO ---
Problem List (1) Central sleep apnea associated with atrial fibrillation Status: Acute (2) Bilateral pulmonary embolism Status: Chronic (3) Chronic diastolic (congestive) heart failure Status: Chronic (4) Essential (primary) hypertension Status: Chronic (5) Hyperlipidemia Status: Chronic (6) Persistent atrial fibrillation Status: Chronic (7) Paroxysmal atrial fibrillation with rapid ventricular response Status: Inactive Procedure Report Date of Procedure: 07/13/18 - Conscious sedation CONSCIOUS SEDATION REPORT BRIEF HISTORY OF PRESENT ILLNESS: The patient is a 62-year-old male who presented to [facility] for an elective outpatient cardioversion due to underlying atrial fibrillation. The patient reports no PO intake since midnight. The patient does have a history of central sleep apnea. The patient reports no history of smoking and COPD. The patient denies any recent constitutional symptoms such as fevers, chills, nausea or vomiting. The patient denies previous anesthetic complications other than slow to recover. Patient did take his anticoagulation on the day of the study. Last known ejection fraction of 53%. PHYSICAL EXAMINATION: VITAL SIGNS: Reviewed and were acceptable. GENERAL: The patient is a male, in no apparent distress, speaking in full sentences. HEENT: Normocephalic, atraumatic. Mucous membranes are moist and pink. Good mouth opening noted. Trachea is midline. Good neck mobility. MP IV CHEST: S1, S2 irregularly irregular. No murmurs, rubs or gallops were noted. LUNGS: Clear to auscultation bilaterally without appreciable wheezes, rales or rhonchi. ABDOMEN: Soft, nontender, nondistended. Positive bowel sounds. EXTREMITIES: There is no clubbing, cyanosis or edema. ASA Class: II DESCRIPTION OF PROCEDURE: After confirmation of informed consent, the patient's anesthesia plan was reviewed in detail. Propofol was chosen. Risks and benefits were reviewed and the patient agreed to proceed. At 12:13 PM, the patient was given 40 mg of propofol. The patient required a total of 100 mg of propofol throughout the procedure to achieve appropriate sedation. The patient achieved an appropriate level of sedation and received 2 attempt s synchronized cardioversion, at 300 J and [address] Shore at the bedside. This was successful in achieving normal sinus rhythm. The patient was monitored until 12:20 PM, at which time the patient reached their baseline mental status and function. The patient tolerated the procedure well. COMPLICATIONS: None ESTIMATED BLOOD LOSS: None RECOMMENDATIONS: Okay to recover in usual fashion. Code Visit 9xxxx: Other Procedure See Report - 86854 -7 minutes conscious sedation
--- NOTE | 2018-07-13 13:52 | CARDIOVERS ---
Cardioversion Cardioversion: DC cardioversion. 62-year-old man with a history of atrial fibrillation, pulmonary embolism, who has been therapeutically anticoagulated. The patient was brought to the cardiac catheterization lab in the postabsorptive nonsedated state. The patient was seen by Dr. Lester of the critical care division. Informed consent was obtained. Anterior-posterior pads were applied. The patient was then administered 100 mg of intravenous propofol. 300 J of synchronized DC cardioversion energy were applied which was unsuccessful in converting the patient to sinus rhythm. 360 J of biphasic synchronized DC cardioversion energy were applied which was successful in converting him to sinus rhythm. EKG confirmed the above. Patient tolerated the procedure well. Plan: Successful DC cardioversion from atrial fibrillation to sinus rhythm. Continue current medications.
== END 2018-07-13 13:40 | disposition home or self-care (01) ==
PROVIDERS: Family Provider Family Medicine; PCP Family Medicine; Referring Provider Internal Medicine Cardiovascular Disease; Visit Provider Internal Medicine Cardiovascular Disease
DX: I48.1 Persistent atrial fibrillation (principal); I48.0 Paroxysmal atrial fibrillation; I26.99 Other pulmonary embolism without acute cor pulmonale; I11.0 Hypertensive heart disease with heart failure; I50.32 Chronic diastolic (congestive) heart failure; G47.37 Central sleep apnea in conditions classified elsewhere; E78.5 Hyperlipidemia, unspecified; E66.9 Obesity, unspecified; Z88.0 Allergy status to penicillin; Z88.2 Allergy status to sulfonamides; Z79.01 Long term (current) use of anticoagulants; Z79.899 Other long term (current) drug therapy
CPT/HCPCS: 36415; 80048; 92960; 93005; J7040

== ENCOUNTER → 2018-12-28 09:02 | Outpatient (CLI) | payer BC, SELFPAY ==
[2018-09-24 14:12] VITALS: BMI 52.2
--- NOTE | 2018-12-28 09:13 | CT_ITS ---
STUDY: CT ABDOMEN AND PELVIS WITHOUT CONTRAST REASON FOR EXAM: Male, 63 years old. Left flank pain. History of kidney stones. RADIATION DOSAGE (If Supplied By Facility): CTDIvol = ( 34.45 ) mGy, DLP = ( 3632.44 ) mGycm TECHNIQUE: Transaxial images were obtained from the dome of the diaphragm to the symphysis pubis without oral contrast, and without intravenous contrast. Sagittal and coronal images were reconstructed. Individualized dose optimization techniques were used for this CT. COMPARISON: Comparison is made with prior examination dated April 03, 2015. FINDINGS: Minimal degree of increased signal markings at the left lung base suggestive of linear scarring. The visualized portions of the heart are within normal limits. Normal liver. There are multiple small gallstones. Normal spleen. Normal pancreas. Normal bilateral adrenal glands. Normal right kidney. Normal left kidney. There is a small hiatal hernia. Normal small intestine. Normal colon. The appendix is visualized and appears normal. Normal abdominal aorta. Normal inferior vena cava. There is borderline retroperitoneal lymphadenopathy with enlarged nodes no greater than 10mm in the short axis diameter. Normal urinary bladder. Normal abdominal wall. There are diffuse degenerative changes of the visualized lumbar spine. Prior interpedicular screw fixation at the L5-S1 level. CT/Abdomen/Pelvis without Cont IMPRESSION: No acute abnormality is seen. Electronically Signed: Jace Irizarry, at 9:54 EDT , Service support ,
== END ==
PROVIDERS: Family Provider Family Medicine; PCP Family Medicine; Referring Provider Nurse Practitioner Adult Health; Visit Provider Nurse Practitioner Adult Health
DX: R10.9 Unspecified abdominal pain (principal)
CPT/HCPCS: 74176

== ENCOUNTER 2019-01-03 08:28 | Emergency (ER) | payer BC, SELFPAY ==
[2018-09-24 14:12] VITALS: BMI 52.2
[2019-01-03 08:30] VITALS: BP 113/60; PULSE 66; RESP 17; TEMP 36.7; O2SAT 97; BMI 48.6
--- NOTE | 2019-01-03 08:51 | ED.DCSUM_ITS ---
History of Present Illness Chief Complaint: Flank Pain Informant: Patient Onset: Days Context: Gradual Onset Timing: Intermittent, Waxes and wanes Quality: Sharp, - - spasm Location: Lumbar Current Severity: Moderate Maximum Severity: Severe Worsened by: improves with: Movement, Ambulation Relieved by: Remaining Still Narrative: Patient is a 63-year-old male with history of lumbar fusion presenting with left flank pain. Patient states the pain is been worsening for about the last week. He initially saw his urologist because he was concerned and a kidney stone. He was CT of the abdomen pelvis performed which did not show any stone or other cause of his pain. There was initially found hiatal hernia so the nurse practitioner recommend he go to the emergency room for further evaluation. Patient states he is having a hard time walking secondary to the pain. He notes walking makes his pain worse. He is having to grab onto the counters because the pain is so severe. He denies any weakness of his legs, numbness or tingling. He denies any fever or chills. He denies any urinary or fecal incontinence. He denies any saddle anesthesia. He cannot recall if this was similar to his back pain prior to his lumbar fusion. Patient denies any GI or symptoms. Patient is on Eliquis and has been taking Tylenol for pain. He states his been compliant with his home medications. He notes the Tylenol is not really helping. Prior similar symptoms: No Recent Illness/Hospitalization: No Past Medical History - Allergies and Home Meds Allergies/Adverse Reactions: Allergies Penicillins Allergy (Verified 01/03/19 08:30) Anaphylaxis Sulfa (Sulfonamide Antibiotics) Allergy (Verified 01/03/19 08:30) [facility] Primary Care Physician: Tiarra Bravo MD [Primary Care Provider] - Past Medical History: - - HTN, atrial fibrillation, history of stroke Surgical History: - - Right knee arthroscopy X2, nose fracture surgical repair, L4-L5 and S1 fusion. Smoking Status: Never smoker - Family History Maternal Family History: Family History (Last Reviewed 09/24/18 @ 14:32 by Terell Shore MD) Father Cancer Family History: Reports: No pertinent history Paternal Family History: Family History (Last Reviewed 09/24/18 @ 14:32 by Terell Shore MD) Father Cancer Family History: Reports: No pertinent history Review of Systems All systems negative except as indicated Musculoskeletal: Reports: Back pain - left, left flank pain Physical Exam Vital Signs/Narrative: Vital Signs Temp Pulse Resp BP Pulse Ox 01/03/19 08:30 98.0 F 66 17 113/60 97 Inital Vital Signs reviewed: Yes General: Well nourished, Well developed, Obese Head: Normocephalic, Atraumatic Eyes: Perrl, EOMI ENT: Moist mucous membranes, No rhinorrhea Neck: Supple, Nontender Cardiovascular: Regular rate, Regular rhythm, No murmurs Respiratory: No distress, CTA bilaterally, Chest nontender Abdomen: Soft, Nontender, Nondistended, Normal bowel sounds Back: Normal Inspection, - - Mid line tenderness, no step-off sign, left lumbar paraspinal tenderness palpation and spasm Extremeties: Nontender, No edema Skin: Normal color, No rash Neuro: Alert, Oriented, Normal Strength, Normal Sensation, Normal DTR, Normal Gait Psychological: Normal affect Diagnostic/Tx/Re-eval Laboratory Data 01/03/19 09:05 Urine Color Yellow Urine Clarity Sl. Cloudy Urine pH 6.0 Ur Specific [place] 1.010 Urine Protein Negative Urine Glucose (UA) Normal Urine Ketones Negative Urine Occult Blood Negative Urine Nitrite Negative Urine Bilirubin Negative Urine Urobilinogen Normal Ur Leukocyte Esterase Negative Urine RBC 0 SEEN Urine WBC 0 SEEN Ur Squamous Epith Cells 0-5 SEEN Urine Bacteria 0 SEEN Urine Mucus 0 SEEN - Medical Decision Making Patient is evaluated for 1 week of left flank pain. It appears to be muscle skeletal. He has a normal neurologic exam. He has already been ruled out for kidney stone in his urine is normal. Patient is given IM morphine and Valium in the ER. He does have improvement of his symptoms. He will be discharged home with pain control and outpatient follow-up. Patient states he will follow-up with physical therapy as well. When patient tries to ambulate out he has significant pain. He is brought back to the emergency room and given a dose of oral Percocet. Patient is reevaluated and states he is now feeling better to leave. He is able to get himself into his car from the wheelchair. He is given a work note for today in the next 2 days. Patient is counseled on signs and symptoms requiring return to the emergency room. Patient verbalizes agreement and understand this plan. Patient discharged home in stable and improved condition. ED Disposition - Plan for ED Patient: Disposition: Home or Assisted Living Diagnosis: Spasm of back muscles Instructions: BACK SPASM, No Trauma Prescriptions: Hydrocodone Bitart/Apap 5-325 [[place] 5MG-325MG] 1 tab PO Q8 PRN 3 Days #10 tab PRN Reason: Pain Prescription Printed Diazepam [Valium] 5 mg PO TID PRN #12 tab PRN Reason: Spasms Prescription Printed Referrals: Tiarra Bravo MD [Primary Care Provider] - Additional Instructions: Follow-up with your primary care doctor. These medications help with your pain but can make you sleepy. Do not operate car or any other heavy machinery while taking it. Return to emergency room if you have worsening symptoms, difficulty urinating or new weakness.
[2019-01-03 09:11] LABS: Bacteria 0 SEEN /hpf (None Seen); Mucous, Urine 0 SEEN /hpf (<or=2+); Red Blood Cells-Urine 0 SEEN /hpf (0-5); White Blood Cells 0 SEEN /hpf (0-5)
[2019-01-03 09:22] LABS: Color, Urine Yellow (Yellow); Glucose, Dipstick Normal (Normal); Ketone-Dipstick Negative (Negative); Leukocyte Esterase-Dipstick Negative /ul (Negative); Nitrite-Dipstick Negative (Negative); Occult Blood-Urine Negative /ul (Negative); Protein-Dipstick Negative (Negative); Urine Bilirubin Dipstick Negative (Negative); Urine Clarity Sl. Cloudy (Clear); Urine Urobilinogen Normal (Normal)
[2019-01-03] MEDS: morphine 8 MG/ML Syringe 6 MG IV (09:25)
[2019-01-03] MEDS: diazePAM 5 MG Tablet PO (09:25)
[2019-01-03 09:29] LABS: Squamous Epithelial Cells - UA 0-5 SEEN /hpf (0-5)
[2019-01-03 12:27] VITALS: BP 118/67; PULSE 60; RESP 16; O2SAT 95
[2019-01-03] MEDS: oxyCODONE 5 MG Tablet PO (12:30)
== END 2019-01-03 13:06 | disposition home or self-care (01) ==
PROVIDERS: Emergency Provider Emergency Medicine; Family Provider Family Medicine; PCP Family Medicine
DX: M62.830 Muscle spasm of back (principal); R10.9 Unspecified abdominal pain; I10 Essential (primary) hypertension; I48.91 Unspecified atrial fibrillation; E66.9 Obesity, unspecified; Z79.01 Long term (current) use of anticoagulants; Z79.899 Other long term (current) drug therapy; Z88.2 Allergy status to sulfonamides; Z88.0 Allergy status to penicillin; Z86.73 Personal history of transient ischemic attack (TIA), and cerebral infarction without residual deficits
CPT/HCPCS: 81001; 96374; 99282; A4216

== ENCOUNTER → 2019-01-14 16:13 | Outpatient (CLI) | payer BC, SELFPAY ==
[2019-01-03 08:30] VITALS: BMI 48.6
[2019-01-14 19:21] LABS: M R Staph aureus DNA By PCR Negative (Negative); Probe Check PASS; Staph aureus DNA By PCR NEGATIVE (Negative)
== END ==
PROVIDERS: Family Provider Family Medicine; PCP Family Medicine; Referring Provider Podiatrist; Visit Provider Podiatrist
DX: L60.0 Ingrowing nail (principal)
CPT/HCPCS: 87070; 87075; 87077; 87186; 87205; 87640

== ENCOUNTER → 2019-03-04 10:55 | Outpatient (CLI) | payer BC, SELFPAY ==
[2019-01-26 12:04] VITALS: BMI 61.4
[2019-03-04 13:29] LABS: Anion Gap 8 (5-15); BUN 17 mg/dL (7-18); BUN/Creat Ratio 19.4 RATIO (10-20); Calcium,Total 9.1 mg/dL (8.5-10.1); Chloride 107 mmol/L (98-107); Creatinine, Serum 0.88 mg/dL (0.70-1.30); EST Glomerular Filtration Rate 94 mL/min (>60); Est Glom Filt Rate - Afr Amer 114 mL/min (>60); Glucose 110 mg/dL (74-106); Potassium 3.9 mmol/L (3.5-5.1); Sodium Level 141 mmol/L (136-145)
== END ==
PROVIDERS: Family Provider Family Medicine; PCP Family Medicine; Referring Provider Family Medicine; Visit Provider Family Medicine
DX: I10 Essential (primary) hypertension (principal)
CPT/HCPCS: 36415; 80048

== ENCOUNTER 2019-03-15 10:03 | Emergency (ER) | payer BC, SELFPAY ==
[2019-01-26 12:04] VITALS: BMI 61.4
[2019-03-15 10:04] VITALS: BP 145/81; PULSE 61; RESP 20; TEMP 36.4; O2SAT 98; BMI 50.7
--- NOTE | 2019-03-15 10:19 | EKG12_ITS ---
Test Reason : NOSE BLEED Blood Pressure : / mmHG Vent. Rate : 062 BPM Atrial Rate : 062 BPM P-R Int : 166 ms QRS Dur : 084 ms QT Int : 412 ms P-R-T Axes : 044 -22 -12 degrees QTc Int : 418 ms Sinus rhythm with occasional Premature ventricular complexes Low voltage QRS Borderline ECG Confirmed by ALBERT BUNN, SHERRI ([id number]), associate entertainment editor ROSY RAUSCH ([id number]) on 03/18/2019 9:52:41 AM Referred By: TAMAR Confirmed By:COLUMBA PRICE MD
--- NOTE | 2019-03-15 10:43 | ED.VISSUMM ---
- ER Visit Summary Date of Service: 03/15/19 Chief Complaint: [Nosebleed] History of Present Illness: The patient is a 63 M [resents to the emergency department with a nosebleed after about an hour and half ago. Patient states that he was sitting at his desk when he felt his nose started to drip and noted that it was bloody. Patient initially just let it drip and eventually started when pressure on it. Presents the ER for evaluation. Patient states that subsequently started developing some mild chest discomfort and started feeling dizzy. Patient does have history of hypertension, CHF, high cholesterol, A. fib, and obstructive sleep apnea. Patient is on Eliquis. He does use CPAP at night. Patient CPAP is humidified.] Physical Examination: [HEENT-PERRLA, EOMI. Cranial nerves II through XII grossly intact. TMs clear. Mucous membranes moist. No adenopathy. Evaluation of the right side of the nose does reveal some dried blood. There is some diffuse excoriation of the septum bilaterally but no active bleeding currently. Cardiovascular-regular rate and rhythm without murmur or ectopy Lungs-clear to auscultation, chest wall stable without crepitus or subcu emphysema Abdomen-normoactive bowel sounds, soft, nontender, no rebound or rigidity, no peritoneal signs. Extremities-intact ?4, normal range of motion, normal pulses, atraumatic] Test Results: [EKG obtained showed sinus rhythm with a ventricular rate of 62 bpm with occasional PVCs. CBC with differential obtained showed a white count of 5.8, hemoglobin 14, hematocrit 42, plates 142. Chemistries unremarkable. Troponin is less than 0.015.] Emergency Department Course and Treatment: [Patient was observed in the department for greater than 2 hours and he had no further bleeding. Leland improved.] Treatment Plan: [Patient to follow-up with ENT within next 3 to 4 days. Patient advised to use some Vaseline on the inside of the nose daily to moisten the nasal septum. Patient to constant pressure for 20 minutes and if symptoms do not resolve if his nose should start to bleed again then he is to return to the emergency department.] Disposition: [Discharged home in stable condition.] Impression: [Epistaxis-resolved] This note was generated with [employer] dictation software. It may contain incorrect words, spelling, and punctuation that were not noted in review of the chart prior to signing ED Disposition - Plan for ED Patient: Referrals: Tiarra Bravo MD [Primary Care Provider] -
[2019-03-15 11:03] LABS: Absolute Lymphocyte Count 1.28 X10^3/uL (0.83-4.51); Absolute Neutrophil Count 3.7 X10^3/uL (2.0-7.7); Basophil# 0.03 X10^3/uL; Basophil% 0.5 % (0-1); Eosinophil# 0.13 X10^3/uL; Eosinophils% 2.3 % (0-5); Hematocrit 41.6 % (40-54); Hemoglobin 14.2 g/dL (13.0-16.5); Lymphocyte # 1.28 X10^3/ul (4.0); Lymphocyte % 22.2 % (19-41); Mean Corp Hgb Conc 34.1 g/dL (32-36); Mean Corpuscular Hgb 31.9 pg (27.0-32.0); Mean Corpuscular Volume 93.5 fL (80-94); Mean Platelet Vol. 9.4 fl (6.2-12.0); Monocyte# 0.57 X10^3/uL; Monocyte% 9.9 % (0-10); NRBC Flagged by Analyzer 0 % (0-5); Neutrophil # 3.73 X10^3/uL (2.7-7.7); Neutrophil % 64.8 % (47-70); Platelet Count 142 K/mm3 (150-450); RBC Distribution Width CV 13.1 % (11.6-14.6); RBC Distribution Width SD 44.5 fl (35.1-43.9); Red Blood Count 4.45 M/mm3 (4.6-6.2); White Blood Count 5.8 K/mm3 (4.4-11.0)
[2019-03-15 11:20] LABS: Anion Gap 4 (5-15); BUN 12 mg/dL (7-18); BUN/Creat Ratio 13.8 RATIO (10-20); Calcium,Total 8.9 mg/dL (8.5-10.1); Chloride 109 mmol/L (98-107); Creatinine, Serum 0.87 mg/dL (0.70-1.30); EST Glomerular Filtration Rate 95 mL/min (>60); Est Glom Filt Rate - Afr Amer 115 mL/min (>60); Estimated Creatinine Clearance 112.37 ml/min; Glucose 97 mg/dL (74-106); Potassium 3.9 mmol/L (3.5-5.1); Sodium Level 141 mmol/L (136-145)
[2019-03-15 12:17] VITALS: BP 126/73; PULSE 59; PULSE 64; RESP 16; O2SAT 98; O2SAT 99
--- NOTE | 2019-03-15 12:17 | ED.DEP ---
ED Disposition - Plan for ED Patient: Instructions: Nosebleed Referrals: Tiarra Bravo MD [Primary Care Provider] - Lucien Toth MD [STAFF PHYSICIAN] - 3-5 Days
[2019-03-15 12:24] VITALS: BP 131/78; BP 133/84; PULSE 57; PULSE 77
--- NOTE | 2019-03-15 12:31 | ED.RN ---
Pt tolerated ortho vital signs without difficulty. He has not received IV fluids as ordered yet. Dr Basim nelson.
== END 2019-03-15 12:41 | disposition home or self-care (01) ==
PROVIDERS: Emergency Provider Emergency Medicine; Family Provider Family Medicine; PCP Family Medicine
DX: R04.0 Epistaxis (principal); R07.89 Other chest pain; R42 Dizziness and giddiness; I48.91 Unspecified atrial fibrillation; I49.3 Ventricular premature depolarization; I11.0 Hypertensive heart disease with heart failure; I50.9 Heart failure, unspecified; E78.00 Pure hypercholesterolemia, unspecified; G47.33 Obstructive sleep apnea (adult) (pediatric); Z79.01 Long term (current) use of anticoagulants; Z79.899 Other long term (current) drug therapy
CPT/HCPCS: 80048; 84484; 85025; 93005; 99283

== ENCOUNTER 2019-11-15 07:48 | Observation (INO) | payer BC, SELFPAY ==
[2019-09-16 15:12] VITALS: BMI 61.5
[2019-11-15] VITALS (17 sets, daily range): BP systolic 107–133; BP diastolic 53–77; PULSE 50–77; RESP 15–23; TEMP 36.6–37.1; O2SAT 96–100; BMI 53.6; BMI 53.1; BMI 53.2
--- NOTE | 2019-11-15 08:01 | RAD_ITS ---
STUDY: X-RAY CHEST REASON FOR EXAM: Male, 64 years old. STERNAL CHEST PAIN TECHNIQUE: Single AP portable view of the chest. COMPARISON: Comparison is made with prior study dated 05/02/2018. FINDINGS: EKG electrodes are seen. Hyperinflation. I suspect a 2.3 cm x 2.5 cm nodule overlying the left first costochondral junction. Correlation with a CT scan is recommended. There is no demonstrated pleural abnormality. There is borderline cardiomegaly. Normal mediastinum and demetria. Normal visualized pulmonary arteries. There is atherosclerotic tortuosity of the aortic arch and descending thoracic aorta. There are degenerative changes of the visualized thoracic spine. Normal visualized ribs, clavicles, and shoulders. There is no demonstrated abnormality of the visualized soft tissue structures of the upper abdomen. RAD/Chest 1 View (Portable) IMPRESSION: Findings suggestive of a 2.3 cm x 2.5 cm nodule overlying the left costochondral junction. Correlation with a CT scan is recommended. Electronically Signed: Jace Irizarry, at 8:27 EDT , Service support ,
--- NOTE | 2019-11-15 08:01 | EKG12_ITS ---
Test Reason : AM Blood Pressure : / mmHG Vent. Rate : 055 BPM Atrial Rate : 055 BPM P-R Int : 174 ms QRS Dur : 086 ms QT Int : 420 ms P-R-T Axes : 075 -24 -45 degrees QTc Int : 401 ms Sinus bradycardia Leftward axis Low voltage QRS Borderline ECG Confirmed by CINDY BUNN, ASHLEY ([id number]), script editor WINNIE LEAHY ([id number]) on 11/17/2019 1:12:59 PM Referred By: MINESH Confirmed By:ASHLEY WHITE MD
--- NOTE | 2019-11-15 08:08 | ED.VIS.CHEST ---
History of Present Illness Chief Complaint: Chest Pain Informant: Patient Onset: Yesterday - over 12 hrs [employer]AL [employer]USB[employer] WORK[employer] Activity at onset: Rest - driving Timing: Continuous Quality: Pressure, Tightness Location: Substernal - w/ tingling in both arms, worse in left fingers, which is intermittent Current Severity: Moderate Maximum Severity: Moderate Worsened By: Exertion. Not Worsened By: Breathing Relieved By: Nothing Associated Symptoms: Dyspnea, Lightheadedness. Negative for: Nausea, Vomiting, Diaphoresis, Cough, Fever, Acid Reflux, Palpitations Narrative: 64-year-old male presenting with chest discomfort and dyspnea. He has a history of a stroke that he denies any residual deficits from, in addition to paroxysmal atrial fibrillation, he is on Xarelto. He has a history of venous thromboembolism, he used to fly [place] for work and suspects he had the clots as a result, now he is anticoagulated and does domestic travel only, recently drove 10 hours but has been compliant with his anticoagulant. No bleeding from anywhere. No new leg pain or swelling, although he is chronically swollen in both of his legs, he does not know if that is been different or not since they were very swollen. No recent illnesses. Patient presents during the national coronavirus emergency declaration/pandemic. He denies any known contact with anyone infected with COVID-19. - Past Medical History (1) Stroke Status: Chronic (2) Paroxysmal atrial fibrillation Status: Chronic (3) Chronic diastolic (congestive) heart failure Status: Chronic (4) Bilateral pulmonary embolism Status: Chronic (5) Essential (primary) hypertension Status: Chronic (6) Hyperlipidemia Status: Chronic (7) Central sleep apnea associated with atrial fibrillation Status: Chronic Past Medical History - Allergies and Home Meds Allergies/Adverse Reactions: Allergies Penicillins Allergy (Verified 11/15/19 07:53) Anaphylaxis Sulfa (Sulfonamide Antibiotics) Allergy (Verified 11/15/19 07:53) Hives Primary Care Physician: Tiarra Bravo MD [Primary Care Provider] - Doctors: Silviano - cardiology Surgical History: - - Right knee arthroscopy X2, nose fracture surgical repair, L4-L5 and S1 fusion. Lives: Spouse/ Significant Other Smoking Status: Never smoker - Family History Maternal Family History: Family History (Last Reviewed 09/16/19 @ 15:[address] Terell Shore MD) Father Cancer Family History: Reports: No pertinent history Paternal Family History: Family History (Last Reviewed 09/16/19 @ 15:[address] Terell Shore MD) Father Cancer Family History: Reports: No pertinent history Review of Systems General: Reports: Malaise. Denies: Chills, Fever, Sweats Eyes: Denies: Visual changes - bilaterally, Diplopia ENT: Denies: Bilateral ear pain, Rhinorrhea, Sore throat Cardiovascular: Reports: Chest pain. Denies: Palpitations Respiratory: Reports: Dyspnea, Dyspnea on exertion. Denies: Cough Gastrointestinal: Denies: Abdominal pain, Nausea, Vomiting, Diarrhea, Melena, Hematochezia Genitourinary: Denies: Dysuria, Hematuria, Frequency Musculoskeletal: Reports: Swelling, Extremity Pain. Denies: Back pain Skin: Denies: Rash, Wounds Neurological: Reports: Parasthesia. Denies: Headache, Weakness, Numbness Physical Exam Vital Signs/Narrative: Vital Signs Temp Pulse Resp BP Pulse Ox 11/15/19 07:48 97.8 F 62 23 H 132/64 H 96 Inital Vital Signs reviewed: Yes General: Well nourished, Well developed, Obese, Acute Distress - Mild respiratory. Appears malaised. Able to answer questions, but poor historian. Head: Normocephalic, Atraumatic Eyes: Perrl, EOMI ENT: Moist mucous membranes, No rhinorrhea Neck: Supple, Nontender, - - Limited evaluation for JVD due to body habitus/obesity Cardiovascular: Regular rate, Regular rhythm Respiratory: CTA bilaterally, Chest nontender Abdomen: Soft, Nontender, Nondistended, Normal bowel sounds Back: Nontender, Normal Inspection Extremities: Nontender, Edema - 2-3+ bilateral lower extremity edema, 2 knees, symmetric. Negative for: Calf Tenderness Skin: Normal color, No rash, No Trauma Neurological: Alert, Oriented x3, Cranial nerves II-XII grossly intact, Normal Strength, Normal Sensation Psychological: Normal Mood, - - Somewhat anxious Diagnostic/Tx/Re-eval Impressions Chest X-Ray 11/15/19 08:01 IMPRESSION: Findings suggestive of a 2.3 cm x 2.5 cm nodule overlying the left costochondral junction. Correlation with a CT scan is recommended. Electronically Signed: Jace Irizarry, at 8:27 EDT , Service support , 11/15/19 08:01 Chest 1 View (Portable) [RAD] Stat Laboratory Results 11/15/19 11/15/19 11/15/19 07:50 07:50 07:50 WBC 6.8 RBC 4.70 Hgb 15.0 Hct 43.2 MCV 91.9 MCH 31.9 MCHC 34.7 RDW Std Deviation 43.8 RDW Coeff of [place] 13.1 Plt Count 182 MPV 9.7 Immature Gran % (Auto) 0.300 Neut % (Auto) 51.9 Lymph % (Auto) 34.2 [place] % (Auto) 8.7 Eos % (Auto) 4.0 Baso % (Auto) 0.9 Absolute Neuts (auto) 3.5 Absolute Lymphs (auto) 2.31 Nucleated RBC % 0 Sodium 139 Potassium 3.7 Chloride 107 Carbon Dioxide 26.0 Anion Gap 6 BUN 11 Creatinine 0.96 Estim Creat Clear Calc 100.55 Est GFR (MDRD) Af Amer 102 Est GFR (MDRD) Non-Af 84 BUN/Creatinine Ratio 11.4 Glucose 119 H Calcium 8.8 Troponin I < 0.015 B-Natriuretic Peptide 195.5 H - Rhythm Strip Rhythm Strip: Sinus Rhythm Rate: 65 Ectopy: None - EKG Initial EKG Interpretation: Sinus Rhythm, No Acute Injury Pattern - low voltage. otherwise nml EKG. Prior: Unchanged Treatment: NTG SL, NTG Topical, - - Lasix MECHE Risk: Severe Angina </=24 hours Score: 1 - Medical Decision Making After nitroglycerin and Lasix, patient has urinated quite a bit and is feeling improved with regards to his chest discomfort and his dyspnea, but he still has all the above. He appears malaised has if he is not feeling well. The work-up is not provided answers for this and with his cardiac history I think it would be prudent to admit him to the hospital for further evaluation and treatment. I do not think he needs emergent CT of the chest, I did discuss the pulmonary nodule suspected by radiology in the left upper lobe, I do not think he is having a pulmonary embolus since he has been compliant with his Xarelto, and has no signs or symptoms of an acute DVT. Aspirin held due to being anticoagulated. ED Disposition - Plan for ED Patient: Disposition: Acute Care Hospital [facility] Diagnosis: Chest pain, unspecified Referrals: Tiarra Bravo MD [Primary Care Provider] -
[2019-11-15] MEDS: Furosemide 40 MG/4 ML Vial IV (08:11)
[2019-11-15 08:12] LABS: Absolute Lymphocyte Count 2.31 X10^3/uL (0.83-4.51); Absolute Neutrophil Count 3.5 X10^3/uL (2.0-7.7); Basophil# 0.06 X10^3/uL; Basophil% 0.9 % (0-1); Eosinophil# 0.27 X10^3/uL; Hematocrit 43.2 % (40-54); Lymphocyte # 2.31 X10^3/ul (4.0); Lymphocyte % 34.2 % (19-41); Mean Corp Hgb Conc 34.7 g/dL (32-36); Mean Corpuscular Hgb 31.9 pg (27.0-32.0); Mean Corpuscular Volume 91.9 fL (80-94); Mean Platelet Vol. 9.7 fl (6.2-12.0); Monocyte# 0.59 X10^3/uL; Monocyte% 8.7 % (0-10); NRBC Flagged by Analyzer 0 % (0-5); Neutrophil # 3.51 X10^3/uL (2.7-7.7); Neutrophil % 51.9 % (47-70); Platelet Count 182 K/mm3 (150-450); RBC Distribution Width CV 13.1 % (11.6-14.6); RBC Distribution Width SD 43.8 fl (35.1-43.9); White Blood Count 6.8 K/mm3 (4.4-11.0)
[2019-11-15] MEDS: Nitroglycerin SL (ED/IMG/CATH) 0.4 MG TABLET SUBLINGUAL ×2 (08:17→08:30)
[2019-11-15 08:28] LABS: Anion Gap 6 (5-15); BUN 11 mg/dL (7-18); BUN/Creat Ratio 11.4 RATIO (10-20); Calcium,Total 8.8 mg/dL (8.5-10.1); Chloride 107 mmol/L (98-107); Creatinine, Serum 0.96 mg/dL (0.70-1.30); EST Glomerular Filtration Rate 84 mL/min (>60); Est Glom Filt Rate - Afr Amer 102 mL/min (>60); Estimated Creatinine Clearance 100.55 ml/min; Glucose 119 mg/dL (74-106); Potassium 3.7 mmol/L (3.5-5.1); Sodium Level 139 mmol/L (136-145)
[2019-11-15 08:29] LABS: BNP,B-Type NATRIURETIC PEPTIDE 195.5 pg/mL (0-100)
--- NOTE | 2019-11-15 09:46 | PCM.HP.STD ---
Problem List (1) Chest pain, unspecified Status: Acute Qualifiers: Chest pain type: unspecified Qualified Code(s): R07.9 - Chest pain, unspecified (2) Paroxysmal atrial fibrillation Status: Chronic (3) Chronic diastolic (congestive) heart failure Status: Chronic (4) Bilateral pulmonary embolism Status: Chronic (5) Essential (primary) hypertension Status: Chronic (6) Hyperlipidemia Status: Chronic Qualifiers: Hyperlipidemia type: unspecified Qualified Code(s): E78.5 - Hyperlipidemia, unspecified (7) Central sleep apnea associated with atrial fibrillation Status: Chronic History of Present Illness Date of Admission: 11/15/19 Chief Complaint: Chest pain - 1 day The patient is a 64 year old M with past medical history of BORIS on CPAP, history of PE on Xarelto, hypertension, hyperlipidemia, history of stroke, super morbid obesity who comes in with complaints of chest discomfort that started the day before admission. Patient stated that he was driving home around 4 PM the day before admission when he had substernal pressure-like chest pain that did not radiate to any part of the body. It was associated with some lightheadedness, nausea and shortness of breath but no vomiting. He denied any trauma or heavy lifting. He denied ever missing his Xarelto. He denied palpitations. His vitals in the ED showed temperature of 97.8F, heart rate 62, blood pressure 132/64, respiratory 23, SPO2 of 96% on room air. His CBC D and CMP were unremarkable. Troponins were negative. BMP was 195.5. EKG shows normal sinus rhythm without any acute ST-T changes. Chest x-ray was unremarkable. Past Medical History Past Medical History (Chronic Problems): Chronic Problems (Last Reviewed 09/16/19 @ 15:[address] Terell Shore MD) Stroke (Chronic) Paroxysmal atrial fibrillation (Chronic) Chronic diastolic (congestive) heart failure (Chronic) Bilateral pulmonary embolism (Chronic 05/02/18) Essential (primary) hypertension (Chronic) Hyperlipidemia (Chronic) Central sleep apnea associated with atrial fibrillation (Chronic) Medical History: Medical History (Last Reviewed 09/16/19 @ 15:[address] Terell Shore MD) Paroxysmal atrial fibrillation (Chronic) I48.0 Chronic diastolic (congestive) heart failure (Chronic) I50.32 Bilateral pulmonary embolism (Chronic) Onset Date: 05/02/18 I26.99 Essential (primary) hypertension (Chronic) I10 Hyperlipidemia (Chronic) E78.5 Central sleep apnea associated with atrial fibrillation (Chronic) I48.91, G47.37 Central sleep apnea G47.31 Obesity E66.9 Back pain M54.9 Knee pain M25.569 Paroxysmal atrial fibrillation with rapid ventricular response Onset Date: 05/02/18 I48.0 Persistent atrial fibrillation (Inactive) I48.1 Allergies Penicillins Allergy (Verified 11/15/19 07:53) Anaphylaxis Sulfa (Sulfonamide Antibiotics) Allergy (Verified 11/15/19 07:53) Hives Home Medications: Ambulatory Orders Medication Instructions Recorded Multivitamin [Daily Multiple 1 ea PO DAILY 04/03/15 Vitamin] furosemide 40 mg tablet 40 mg PO DAILY #90 tab 07/29/19 latanoprost 0.005 % eye drops 1 ml OPHTHALMIC DAILY PRN 07/29/19 lisinopril 20 mg tablet 20 mg PO DAILY #90 tab 07/29/19 metoprolol tartrate 50 mg tablet 50 mg PO BID #180 tab 07/29/19 rivaroxaban 20 mg tablet 20 mg PO DAILY #90 tab 07/29/19 Surgical History: Surgical History (Last Reviewed 09/16/19 @ 15:[address] Terell Shore MD) History of tonsillectomy and adenoidectomy Z98.890 History of back surgery Z98.890 History of cardioversion Onset Date: 07/13/18 Z98.890 History of knee surgery Z98.890 History of total right knee replacement Z96.651 Surgical History: tonsillectomy, - - Right knee arthroscopy X2, nose fracture surgical repair, L4-L5 and S1 fusion. Psychiatric History: No pertinent psych hx Lives: Spouse/ Significant Other Smoking Status: Never smoker Tobacco Use: Non-smoker Alcohol: None Drugs: None - *Family History Maternal Family History: Family History (Last Reviewed 09/16/19 @ 15:[address] Terell Shore MD) Father Cancer History Items: Dementia Paternal Family History: Family History (Last Reviewed 09/16/19 @ 15:[address] Terell Shore MD) Father Cancer History Items: Cancer Review of Systems Constitutional: Denies: Anorexia, Chills, Fever, Malaise, Weakness, Weight Change, Fatigue Eyes: Denies: Blurred vision, Cataracts, Conjunctivae Inflammation, Pain, Redness HEENT: Denies: Difficulty Hearing, Difficulty Swallowing, Head Aches, Hearing Changes, Sinus Congestion, Sinus Drainage Cardiovascular: Reports: Chest Pain, Chest Pressure, Chest Tightness, Heaviness, Light Headedness. Denies: Orthopnea, Palpitations, Paroxysmal Noc. Dyspnea, Syncope Respiratory: Reports: Shortness of Breath, Shortness of breath upon exertion. Denies: Cough, Shortness of breath at rest, Sputum production Gastrointestinal: Denies: Abdominal Pain, Constipation, Hematemesis, Hematochezia, Nausea, Vomiting Genitourinary: Denies: Dysuria, Incontinence, Nocturia Musculoskeletal: Denies: Joint Pain, Joint stiffness, Joint swelling, Joint Tenderness Skin: Denies: Dryness, Rash, Wounds Neurological: Reports: Numbness, Tingling - ofleft fingers and toes. Denies: Difficulty swallowing, Focal weakness Psychiatric: Denies: Anxiety, Depression, Homicidal Ideations, Suicidal Ideations Hematologic/ Lymphatic: Denies: Easy Bruising, Easy Bleeding VTE Information - Inpt Only VTE Present on Admission: No VTE Pharm Prophylaxis ordered?: Yes Patient Problems: Active and Suspected Problems (Last Reviewed 09/16/19 @ 15:[address] Terell Shore MD) Chest pain, unspecified (Acute) - Physical Exam Vitals/I&O's: Vital Signs Temp Pulse Resp BP Pulse Ox 97.8 F 53 L 17 114/59 L 98 11/15/19 07:48 11/15/19 09:00 11/15/19 09:00 11/15/19 09:00 11/15/19 09:00 Oxygen Flow Rate (L/min) 2 Oxygen Delivery Method Nasal Cannula Weight: 205.2 kg Body Mass Index (BMI) 53.6 Intake and Output for Last 24 Hours 11/13/19 11/14/19 11/15/19 23:59 23:59 23:59 Output Total 1200 / 1200 Balance -1200 / -1200 General: Alert, Oriented x3, Cooperative, No apparent distress, - - super morbidly obese HEENT: Atraumatic, PERRLA, EOMI, Normocephalic Oral: Moist Mucosa Neck: Supple Lungs: Clear to auscultation, Normal air movement Cardiovascular: Regular rate, Regular Rhythm, Normal S1, Normal S2, No murmurs Abdomen: Bowel Sounds Present, Soft, Non Tender, Non-Distended, No Hepato-splenomegaly Extremities: No edema Skin: No rashes Musculoskeletal: No Tenderness to Palpation of Joints or Extremities Lymphatic: No Cervical, Supraclavicular, or Inguinal Adenopathy Neurological: Cranial nerves II-XII grossly intact Psych/Mental Status: Normal Affect, Appropriate Laboratory Results 11/15/19 07:50: WBC 6.8, RBC 4.70, Hgb 15.0, Hct 43.2, MCV 91.9, MCH 31.9, MCHC 34.7, RDW Std Deviation 43.8, RDW Coeff of Mariana 13.1, Plt Count 182, MPV 9.7, Immature Gran % (Auto) 0.300, Neut % (Auto) 51.9, Lymph % (Auto) 34.2, [place] % (Auto) 8.7, Eos % (Auto) 4.0, Baso % (Auto) 0.9, Absolute Neuts (auto) 3.5, Absolute Lymphs (auto) 2.31, Nucleated RBC % 0 11/15/19 07:50: Sodium 139, Potassium 3.7, Chloride 107, Carbon Dioxide 26.0, Anion Gap 6, BUN 11, Creatinine 0.96, Estim Creat Clear Calc 100.55, Est GFR (MDRD) Af Amer 102, Est GFR (MDRD) Non-Af 84, BUN/Creatinine Ratio 11.4, Glucose 119 H, Calcium 8.8, Troponin I < 0.015 11/15/19 07:50: B-Natriuretic Peptide 195.5 H Current Medications Nitroglycerin (Nitrostat) 0.4 mg SUBLINGUAL Q5M PRN PRN Reason: Chest pain Last Admin: 11/15/19 08:30 Dose: 0.4 mg Documented by: Assessment/Plan All Active Problems (Last Reviewed 09/16/19 @ 15:[address] Terell Shore MD) Chest pain, unspecified (Acute) Chest tightness (Acute) Chest pain (Resolved) 1. Chest pain in a patient with multiple cardiac comorbidities EKG shows no acute ST changes, troponins x1 is negative, BNPeptide is 195 Admit to PCU, monitor on telemetry, trend troponins, 2D echo, nitro as needed stress test in a.m. Continue on Xarelto for now 2. History of PE, on Xarelto 3. Paroxysmal atrial fibrillation, in normal sinus rhythm, continue on metoprolol and Xarelto 4. Hypertension, controlled, continue metoprolol 5. Chronic diastolic CHF, no signs of acute exacerbation, continue on home Lasix 6. BORIS on CPAP, continue same 7. Super morbid obesity, BMI 53.2, complicates care, lifestyle modification advised 8. DVT prophylaxis - on Xarelto OBSV E&M: 23360 Initial observation care L3
[2019-11-15] MEDS: Nitroglycerin Oint 1 INCH PACKET TRANSDERM. (09:54)
--- NOTE | 2019-11-15 10:17 | ECHOCS_ITS ---
Reason For Study: Chest Pain Procedure This was a 2D Doppler, Color Flow transthoracic echocardiogram. The study was technically difficult. Contrast injection was performed. Exam performed portable in patient room. Left Ventricle Normal LV size. Mild concentric left ventricular hypertrophy. Left ventricular systolic function is normal. The estimated ejection fraction is 55 %. No regional wall motion abnormalities noted. Right Ventricle Normal RV size. Normal systolic function. Atria Normal left atrium. Normal right atrium. Mitral Valve Normal mitral valve. Tricuspid Valve The tricuspid valve is not well visualized. Unable to estimate RV systolic pressure due to insufficient tricuspid regurgitant envelope. Aortic Valve The aortic valve is not well visualized. Pulmonic Valve The pulmonic valve is not well visualized. Great Vessels Normal aortic root. The pulmonary artery is normal size. Normal inferior vena cava. Pericardium/Pleural No pericardial effusion. Medication Diluted definity 6ml given slow IV push to enhance endocardial definition. MMode/2D Measurements & Calculations LVIDd: 5.4 cm IVSd: 1.2 cm Ao root diam: 3.5 cm LVIDs: 4.5 cm LVPWd: 1.4 cm LA dimension: 4.7 cm FS: 16.3 % Time Measurements MV dec time: 0.23 sec Doppler Measurements & Calculations MV E max bakari: 75.5 cm/sec Lat Peak E' Bakari: 9.7 cm/sec Med Peak E' Bakari: 6.7 cm/sec MV A max bakari: 53.4 cm/sec E/E' lat: 7.7 E/E' med: 11.2 MV E/A: 1.4 MV V2 max: 96.3 cm/sec MV P1/2t max bakari: 95.3 cm/sec Ao V2 max: 115.4 cm/sec MV max P.7 mmHg MV P1/2t: 95.4 msec Ao max P.3 mmHg MV V2 mean: 50.2 cm/sec MV mean P.2 mmHg MV dec slope: 292.6 cm/sec2 MV V2 VTI: 31.5 cm MVA(P1/2t): 2.3 cm2 LV V1 max: 76.6 cm/sec PA V2 max: 86.7 cm/sec LV V1 max P.3 mmHg Interpretation Summary Normal LV size. Left ventricular systolic function is normal. The estimated ejection fraction is 55 %. Mild concentric left ventricular hypertrophy. Contrast injection was performed. Ordering Physician: Franchesca Horn Referring Physician: Tiarra Bravo M.D. Performed By: Temo Carter RCS
--- NOTE | 2019-11-15 11:00 | EKG12_ITS ---
Test Reason : CP ADMISSION Blood Pressure : / mmHG Vent. Rate : 048 BPM Atrial Rate : 048 BPM P-R Int : 178 ms QRS Dur : 094 ms QT Int : 474 ms P-R-T Axes : 037 -23 -20 degrees QTc Int : 423 ms Sinus bradycardia Low voltage QRS Borderline ECG Confirmed by CINDY BUNN, ASHLEY ([id number]), market editor WINNIE LEAHY ([id number]) on 11/17/2019 1:15:10 PM Referred By: MINESH Confirmed By:ASHLEY WHITE MD
[2019-11-15] MEDS: oxyCODONE 5 MG Tablet PO ×2 (11:18→21:42)
[2019-11-15 12:45] LABS: AST(SGOT) 29 U/L (15-37); Alanine Aminotransfer ALT/SGPT 37 U/L (16-61); Albumin, Serum 3.8 g/dL (3.2-5.0); Alkaline Phosphatase 85 U/L (45-117); Bilirubin, Direct 0.33 mg/dL (0.00-0.30); Globulin 3.5 g/dL (2.2-4.2); Protein, Total 7.3 g/dL (6.4-8.2)
[2019-11-15] MEDS: Furosemide 40 MG Tablet PO (16:47)
[2019-11-15] MEDS: Nitroglycerin Oint 1 INCH PACKET 2 INCH TRANSDERM. (17:40)
[2019-11-15] MEDS: Morphine 2 MG/ML Syringe IV (17:46)
[2019-11-15] MEDS: 0.9% Saline Lock 10 ML Syringe IV (17:46)
[2019-11-15] MEDS: Acetaminophen 325 MG Tablet 650 MG PO (19:45)
[2019-11-15] MEDS: Ketoconazole Cream 1 APPLIC TOPICAL (19:45)
[2019-11-15] MEDS: Ondansetron 4 MG/2 ML Vial IV (21:42)
--- NOTE | 2019-11-15 23:56 | CPS ---
2 l/m added in line to pt home bipap unit
[2019-11-16] VITALS (18 sets, daily range): BP systolic 98–144; BP diastolic 50–80; PULSE 58–80; RESP 16–18; TEMP 36.6–36.9; O2SAT 93–98
--- NOTE | 2019-11-16 05:55 | EKG12_ITS ---
Test Reason : CP Blood Pressure : / mmHG Vent. Rate : 061 BPM Atrial Rate : 061 BPM P-R Int : 168 ms QRS Dur : 088 ms QT Int : 422 ms P-R-T Axes : 030 -19 -11 degrees QTc Int : 424 ms Normal sinus rhythm Low voltage QRS Borderline ECG Confirmed by ALBERT BUNN, SHERRI ([id number]), features editor WINNIE LEAHY ([id number]) on 11/21/2019 1:11:45 PM Referred By: MARIA DE JESUS Confirmed By:COLUMBA PRICE MD
[2019-11-16 05:57] LABS: Absolute Lymphocyte Count 1.66 X10^3/uL (0.83-4.51); Absolute Neutrophil Count 4.3 X10^3/uL (2.0-7.7); Basophil# 0.04 X10^3/uL; Basophil% 0.6 % (0-1); Eosinophil# 0.21 X10^3/uL; Hematocrit 42.1 % (40-54); Hemoglobin 14.1 g/dL (13.0-16.5); Lymphocyte # 1.66 X10^3/ul (4.0); Lymphocyte % 23.7 % (19-41); Mean Corp Hgb Conc 33.5 g/dL (32-36); Mean Corpuscular Hgb 31.4 pg (27.0-32.0); Mean Corpuscular Volume 93.8 fL (80-94); Mean Platelet Vol. 9.7 fl (6.2-12.0); Monocyte# 0.75 X10^3/uL; Monocyte% 10.7 % (0-10); NRBC Flagged by Analyzer 0 % (0-5); Neutrophil # 4.32 X10^3/uL (2.7-7.7); Neutrophil % 61.6 % (47-70); Platelet Count 141 K/mm3 (150-450); RBC Distribution Width CV 13.2 % (11.6-14.6); RBC Distribution Width SD 45.2 fl (35.1-43.9); Red Blood Count 4.49 M/mm3 (4.6-6.2)
[2019-11-16 06:26] LABS: ALB/GLOB Ratio 1.1 RATIO (0.9-2.4); AST(SGOT) 27 U/L (15-37); Alanine Aminotransfer ALT/SGPT 33 U/L (16-61); Albumin, Serum 3.4 g/dL (3.2-5.0); Alkaline Phosphatase 77 U/L (45-117); Anion Gap 6 (5-15); BUN 13 mg/dL (7-18); BUN/Creat Ratio 14.1 RATIO (10-20); Calcium,Total 8.6 mg/dL (8.5-10.1); Chloride 102 mmol/L (98-107); Creatinine, Serum 0.92 mg/dL (0.70-1.30); EST Glomerular Filtration Rate 88 mL/min (>60); Est Glom Filt Rate - Afr Amer 107 mL/min (>60); Estimated Creatinine Clearance 104.92 ml/min; Globulin 3.2 g/dL (2.2-4.2); Glucose 101 mg/dL (74-106); Potassium 3.5 mmol/L (3.5-5.1); Protein, Total 6.6 g/dL (6.4-8.2); Sodium Level 137 mmol/L (136-145)
[2019-11-16] MEDS: oxyCODONE 5 MG Tablet PO (07:38)
[2019-11-16] MEDS: Ondansetron 4 MG/2 ML Vial IV (07:39)
[2019-11-16] MEDS: 0.9% Saline Lock 10 ML Syringe IV (07:39)
[2019-11-16] MEDS: Aspirin 81 MG TAB.CHEW PO (07:39)
--- NOTE | 2019-11-16 08:35 | CON.PCM_ITS ---
Reason for Consult Date of Consultation: 11/16/19 Reason for Consultation: Chest discomfort History of Present Illness: The patient is a 64 year old M who presents to the emergency room with chest discomfort. He had presented to the hospital with shortness of breath and irregular heartbeat on 05/02/2018. He was noted to be in atrial fibrillation with a rapid ventricular response rate and also demonstrated bilateral pulmonary emboli from a CT scan. He was hospitalized and treated with anticoagulation and also diuresed since his natriuretic peptide was elevated an echocardiogram performed demonstrating ejection fraction approximately 53%. He was also noted to be hypertensive and treated for that. He was discharged and has done well since then has been compliant with his medications. He has had intermittent chest discomfort in the past with occasional radiation to his arm. As well as shortness of breath he has been compliant with all his anticoagulation and has not missed a dose. He had called the office complaining of chest discomfort and was asked to go to the emergency room. Since presentation in the emergency room he has been free of chest discomfort. This morning he was noted to have a 9 beat run of wide-complex tachycardia. He has been maintaining sinus rhythm. Past Medical History Allergies/Adverse Reactions: Allergies Penicillins Allergy (Verified 11/15/19 07:53) Anaphylaxis Sulfa (Sulfonamide Antibiotics) Allergy (Verified 11/15/19 07:53) Hives Home Medications: Ambulatory Orders Medication Instructions Recorded Multivitamin [Daily Multiple 1 ea PO DAILY 04/03/15 Vitamin] furosemide 40 mg tablet 40 mg PO DAILY #90 tab 07/29/19 latanoprost 0.005 % eye drops 1 ml OPHTHALMIC DAILY PRN 07/29/19 lisinopril 20 mg tablet 20 mg PO DAILY #90 tab 07/29/19 metoprolol tartrate 50 mg tablet 50 mg PO BID #180 tab 07/29/19 rivaroxaban 20 mg tablet 20 mg PO DAILY #90 tab 07/29/19 Past Medical History (Chronic Problems): Chronic Problems (Last Reviewed 09/16/19 @ 15:[address] Terell Shore MD) Stroke (Chronic) Paroxysmal atrial fibrillation (Chronic) Chronic diastolic (congestive) heart failure (Chronic) Bilateral pulmonary embolism (Chronic 05/02/18) Essential (primary) hypertension (Chronic) Hyperlipidemia (Chronic) Central sleep apnea associated with atrial fibrillation (Chronic) Surgical History: tonsillectomy, - - Right knee arthroscopy X2, nose fracture surgical repair, L4-L5 and S1 fusion. Psychiatric History: No pertinent psych hx - *Family History Maternal Family History: Family History (Last Reviewed 09/16/19 @ 15:[address] Terell Shore MD) Father Cancer History Items: Dementia Paternal Family History: Family History (Last Reviewed 09/16/19 @ 15:[address] Terell Shore MD) Father Cancer History Items: Cancer Lives: Spouse/ Significant Other Smoking Status: Never smoker Tobacco Use: Non-smoker Alcohol: None Drugs: None Subjectve: Pleasant gentleman in no distress at this time Objective: Vital Signs Temp Pulse Resp BP Pulse Ox 97.9 F 61 16 137/62 H 97 11/16/19 07:26 11/16/19 07:26 11/16/19 07:26 11/16/19 07:26 11/16/19 07:26 Oxygen Flow Rate (L/min) 2 Oxygen Delivery Method CPAP Weight: 448 lb 10.251 oz Body Mass Index (BMI) 53.1 Intake and Output for Last 24 Hours 11/14/19 11/15/19 11/16/19 23:59 23:59 23:59 Intake Total 1100 / 1100 0 / 0 Output Total 1500 / 1500 300 / 300 Balance -400 / -400 -300 / -300 General: Awake, Alert, Oriented x 3 HEENT: PERRL, EOMI, Sclera Non Icteric Neck: Supple, Good ROM, No Lymph Node Enlargement Lungs: Clear to auscultation Cardiovascular: Regular Rhythm, Normal S1, Normal S2, No Murmurs, No Rubs, No Gallops Vascular: No Carotid Bruits, Normal Femoral Pulses, Normal Radial Pulses, Normal Dorsalis Pedal Pulse, Normal Posterior Tibial Pulses Abdomen: Bowel Sounds Present, Soft, Non Tender, No HSM, No Organomegaly Extremities: No Cyanosis, No Clubbing, No edema Musculoskeletal: No Erythema Skin: No Rashes Lymphatic: No Lymph Node Enlargement Neurological: No Focal Motor or Sensory Deficit Psych/Mental Status: Appropriate 11/15/19 11:56: Troponin I < 0.015 11/15/19 11:56: Total Bilirubin 1.50 H, Direct Bilirubin 0.33 H 11/15/19 15:48: Troponin I < 0.015 11/16/19 05:40: WBC 7.0, RBC 4.49 L, Hgb 14.1, Hct 42.1, MCV 93.8, MCH 31.4, MCHC 33.5, Plt Count 141 L, MPV 9.7, Immature Gran % (Auto) 0.400, Neut % (Auto) 61.6, Lymph % (Auto) 23.7, [place] % (Auto) 10.7 H, Eos % (Auto) 3.0, Baso % (Auto) 0.6, Absolute Neuts (auto) 4.3, Nucleated RBC % 0 11/16/19 05:40: Sodium 137, Potassium 3.5, Chloride 102, Carbon Dioxide 29.0, Anion Gap 6, BUN 13, Creatinine 0.92, Est GFR (MDRD) Af Amer 107, Est GFR (MDRD) Non-Af 88, BUN/Creatinine Ratio 14.1, Glucose 101, Calcium 8.6, Total Bilirubin 1.70 H 11/16/19 05:40: Magnesium 2.0 Rhythm: EKG: Normal sinus rhythm with no acute changes Assessment/Plan 1. Chest discomfort * Patient presents with chest discomfort the etiology of which is unclear at this particular time. He does have cardiac/coronary risk factors and based on the fact that he has had recurrence of this it would be prudent to assess his coronary anatomy. He did undergo a cardiac catheterization over 15 years ago which did not demonstrate any significant obstructive coronary disease. It is felt that his body habitus would not be conducive to the most accurate noninvasive testing. The risk benefits and alternatives have been discussed with him he understands and agrees to proceed. * 2. Atrial fibrillation * He did have a previous history of atrial fibrillation when he developed a pulmonary embolus. He appears to be back in sinus rhythm. He does have a watch which can record his heart rates and no episodes of atrial fibrillation have been noted. * 3. History of congestive heart failure * He does have a history of what appears to be diastolic heart failure. His echocardiogram in 2019 as well as now demonstrates preserved ejection fraction his natruretic peptide was mildly elevated. He will continue with diuretic therapy. Salt restriction has also been emphasized. * 4. Hypertension * His blood pressure appears to be under good control at this time but I would recommend the addition of lisinopril 20 mg a day to his regimen. * * Thank you for allowing me to participate in the care of your patient. Please don't hesitate to call if any issues arise. * * Addendum: At 1 PM Cardiac catheterization today demonstrated no obstructive coronary artery disease. His ejection fraction was also preserved. My recommendation is to search for alternate noncardiac sources of chest discomfort. I would recommend aggressive control of his blood pressure. Would suggest addition of lisinopril 20 mg a day to his regimen. Xarelto can be started this evening.
[2019-11-16] MEDS: Metoprolol Tartrate 50 MG Tablet PO (09:00)
[2019-11-16] MEDS: Acetaminophen 325 MG Tablet 650 MG PO ×2 (09:03→16:36)
[2019-11-16] MEDS: Latanoprost 0.005% 1 Bottle 1 DRP OPHTHALMIC (09:03)
--- NOTE | 2019-11-16 09:07 | CASEMGMT ---
According to the [facility] website, the following are in-network tertiary facilities: [facility], [place], [facility], [facility], [place], and . Phani HILLIARD CM
--- NOTE | 2019-11-16 11:21 | NURSING ---
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
--- NOTE | 2019-11-16 13:00 | CL.D_ITS ---
Patient Name: RICHI HU Study Date: 11/16/2019 Performing: Terell Shore MD Ht: 77 inches 196 cm : 1955 Wt: 450.3 lbs 204 kg Age: 64 Gender: male BSA: 3.16 PROCEDURE(S) PERFORMED FF47-YNU/COR/LV CLINICAL PROFILE AND INDICATIONS Indications: Suspected CAD Heart Failure: None Stress/Imaging Stress/Image Study Performed: No CAD Presentations: Symptom unlikely to be ischemic. CONCLUSIONS Normal coronary arteries Normal LV size, wall motion,and systolic function RECOMMENDATIONS Medical therapy DESCRIPTION OF PROCEDURE The patient arrived to the procedure lab. The risks and benefits of the procedure as well as a full d escription of our services here and current unavailability of surgical backup were fully explained to the patient and/or their significant other prior to the catheterization. The Timeout was completed, verifying the correct patient and procedure. The patient's procedural site was prepped and draped in the usual fashion. Local anesthetic was given subcutaneously to right radial region with Lidocaine 2% . Using a modified Seldinger technique, arterial access was obtained via the right radial artery, a 6 Fr sheath was inserted. Left Coronary Artery selective angiography was performed in multiple views u sing a 5 Fr. 4.0 Mellen catheter. Right Coronary Artery selective angiography was then performed in mu ltiple views using a 5 Fr. JR 5 catheter. Left Ventriculography was performed in TERRY projection using a 5 Fr. Pigtail catheter. LV to AO pullback pressures were then recorded.The arterial sheath was pulled and a TR Band was applied for hemostasis CORONARY ANGIOGRAPHY DOMINANCE: Right Dominant LEFT HEART ASSESSMENT Left Ventricular Ejection Fraction: by LV Gram 60 % Normal LV wall motion Normal Left Ventricular systolic function Normal Left Ventricular systolic function LEFT MAIN: Angiographically normal LEFT ANTERIOR DESCENDING ARTERY: Angiographically normal CIRCUMFLEX ARTERY: Angiographically normal RIGHT CORONARY ARTERY: Angiographically normal COMPLICATIONS No Complications PROCEDURE MEDICATIONS Fentanyl 50 mcg IV Versed 1 mg IV Versed 1 mg IV Fentanyl 25 mcg IV Oxygen: 2 L/min via nasal cannula SUMMARY OF HEMODYNAMIC DATA Time AIR REST ECG 11:49:57 AO 137/93 (112) SA 12:23:52 LV 135/12, 20 12:35:21 LV 117/12, 21 12:35:28 LV 131/17, 24 12:36:10 LV 107/22, 29 12:36:17 LVp 128/15, 28 12:36:23 AO 132/72 (100) 12:36:28 Signed By Terell Shore MD On 11/16/2019 12:59:21 Terell Shore MD
--- NOTE | 2019-11-16 13:01 | DCINST_ITS ---
- Discharge Diagnoses Current Active Problems: Current Active and Chronic Problems (Last Reviewed 09/16/19 @ 15:[address] Terell Shore MD) Chest pain, unspecified (Acute) You will use the following diet at home:: Calorie/Carbohydrate Controlled (specify 1200, 1400, etc), Cardiac Discharge Activity: Return to Normal Activity Call your doctor if you observe: Shortness of breath, Dizziness, Fainting spells, Chest pain Additional Instructions: May resume Xarelto tonight. Allergies/Adverse Reactions: Allergies Penicillins Allergy (Verified 11/15/19 07:53) Anaphylaxis Sulfa (Sulfonamide Antibiotics) Allergy (Verified 11/15/19 07:53) Hives Medications to take at Discharge Multivitamin [Daily Multiple Vitamin] 1 ea PO DAILY 04/03/15 furosemide 40 mg tablet 40 mg PO DAILY #90 tab 07/29/19 latanoprost 0.005 % eye drops 1 ml OPHTHALMIC DAILY PRN 07/29/19 lisinopril 20 mg tablet 20 mg PO DAILY #90 tab 07/29/19 metoprolol tartrate 50 mg tablet 50 mg PO BID #180 tab 07/29/19 rivaroxaban 20 mg tablet 20 mg PO DAILY #90 tab 07/29/19 Primary Care Physician: Tiarra Bravo MD [Primary Care Provider] - Please follow up with your Primary Care Physician in: 1 Week Test Results: Test results from this visit will be discussed in further detail at your follow- up appointment, if applicable. Please Follow Up With: Marcus Justin NP-C When: 2 Weeks Proposed Discharge Date: 11/16/19
--- NOTE | 2019-11-16 13:11 | PCM.DC.SUM ---
<Blanca Nathan CURRICULUM ADVISORY TEACHER - Last Filed: 11/16/19 13:23> Discharge Date and Diagnosis Date of Admission: 11/15/19 Date of Discharge: 11/16/19 - Primary Discharge Diagnosis Acute Problems: Active Problems (Last Reviewed 09/16/19 @ 15:[address] Terell Shore MD) 1. Non-cardiac chest pain 2. History of PE 3. Paroxysmal atrial fibrillation 4. Hypertension 5. Chronic diastolic CHF 6. Central sleep apnea 7. Super morbid obesity - Secondary Discharge Diagnosis Chronic Problems: Chronic Problems (Last Reviewed 09/16/19 @ 15:[address] Terell Shore MD) Stroke (Chronic) Paroxysmal atrial fibrillation (Chronic) Chronic diastolic (congestive) heart failure (Chronic) Bilateral pulmonary embolism (Chronic 05/02/18) Essential (primary) hypertension (Chronic) Hyperlipidemia (Chronic) Central sleep apnea associated with atrial fibrillation (Chronic) Hospital Course and Treatment Imaging Results: Diagnostic Data Chest X-Ray 11/15/19 08:01 IMPRESSION: Findings suggestive of a 2.3 cm x 2.5 cm nodule overlying the left costochondral junction. Correlation with a CT scan is recommended. Electronically Signed: Jace Edie, at 8:27 EDT , Service support , Dr. Shore- Cardiology Operations: None Procedures: 2-D Echocardiogram, Cardiac catheterization Summary of Care Provided: The patient is a 64 year old M admitted 11/15/2019 due to chest pain. 1. Non-cardiac chest pain-troponin negative. EKG without ST-T changes. Echo with EF 55%. Cardiac cath with normal coronary arteries. Continue lisinopril, metoprolol, Xarelto. Continue outpatient follow-up with cardiology. 2. History of PE-on Xarelto. May resume this evening, 916. 3. Paroxysmal atrial fibrillation-on metoprolol, Xarelto. 4. Hypertension-stable, continue lisinopril, metoprolol. 5. Chronic diastolic CHF-echocardiogram demonstrates an EF of 55%, mild left ventricular hypertrophy. Continue home Lasix regimen. 6. Central sleep apnea-continue home CPAP regimen with supplemental oxygen at bedtime. Recommend follow-up with pulmonary medicine given report of ongoing daytime fatigue. May need repeat titration study. 7. Super morbid obesity-encouraged diet and lifestyle modifications. Patient seen and examined prior to discharge. Physical assessment as noted below. Patient is stable for discharge with follow up recommendations as noted above. This patient was seen by JOSE Hair under the supervision of Dr. Horn. - Physical Exam Vitals/I&O's: Vital Signs Temp Pulse Resp BP Pulse Ox 98.4 F 64 18 140/67 H 98 11/16/19 13:00 11/16/19 13:00 11/16/19 13:00 11/16/19 13:00 11/16/19 13:00 Oxygen Flow Rate (L/min) 2 Oxygen Delivery Method Nasal Cannula Weight: 448 lb 10.251 oz Body Mass Index (BMI) 53.1 Intake and Output for Last 24 Hours 11/14/19 11/15/19 11/16/19 23:59 23:59 23:59 Intake Total 1100 / 1100 50 / 50 Output Total 1500 / 1500 300 / 300 Balance -400 / -400 -250 / -250 General: Alert, Oriented x3, Cooperative HEENT: Atraumatic, PERRLA, EOMI, Normocephalic Neck: Supple, No JVD, Negative Carotid Bruits Lungs: Clear to auscultation, Diminished Cardiovascular: Regular rate, No murmurs Abdomen: Bowel Sounds Present, Soft, Non Tender, Non-Distended, Obese Extremities: No clubbing, No cyanosis, Capillary Refill Less than 3 Seconds, Edema - Nonpitting bilateral lower extremities Skin: No rashes, No breakdown Musculoskeletal: No Tenderness to Palpation of Joints or Extremities Neurological: Cranial nerves II-XII grossly intact, Neuro grossly intact Psych/Mental Status: Normal Affect, Appropriate Laboratory Results 11/15/19 15:48: Troponin I < 0.015 11/16/19 05:40: WBC 7.0, RBC 4.49 L, Hgb 14.1, Hct 42.1, MCV 93.8, MCH 31.4, MCHC 33.5, RDW Std Deviation 45.2 H, RDW Coeff of [place] 13.2, Plt Count 141 L, MPV 9.7, Immature Gran % (Auto) 0.400, Neut % (Auto) 61.6, Lymph % (Auto) 23.7, [place] % (Auto) 10.7 H, Eos % (Auto) 3.0, Baso % (Auto) 0.6, Absolute Neuts (auto) 4.3, Absolute Lymphs (auto) 1.66, Nucleated RBC % 0 11/16/19 05:40: Sodium 137, Potassium 3.5, Chloride 102, Carbon Dioxide 29.0, Anion Gap 6, BUN 13, Creatinine 0.92, Estim Creat Clear Calc 104.92, Est GFR (MDRD) Af Amer 107, Est GFR (MDRD) Non-Af 88, BUN/Creatinine Ratio 14.1, Glucose 101, Calcium 8.6, Total Bilirubin 1.70 H, AST 27, ALT 33, Alkaline Phosphatase 77, Total Protein 6.6, Albumin 3.4, Globulin 3.2, Albumin/Globulin Ratio 1.1 11/16/19 05:40: Magnesium 2.0 Current Medications Acetaminophen (Tylenol) 650 mg PO Q6H PRN PRN PRN Reason: Pain Score 1-10/Temp > 100.7 F Last Admin: 11/16/19 09:03 Dose: 650 mg Documented by: Albuterol Sulfate (Ventolin Aerosols) 2.5 mg INHALATION Q2H PRN PRN PRN Reason: SOB/Wheezing Aspirin (Aspirin, Baby) 81 mg PO DAILY@0800 [facility] Last Admin: 11/16/19 07:39 Dose: 81 mg Documented by: Furosemide (Lasix) 40 mg PO DAILY [facility] Last Admin: 11/15/19 16:47 Dose: 40 mg Documented by: Sodium Chloride () 1,000 mls @ 75 mls/hr IV .[id number] [facility] Ketoconazole (Nizoral) 1 applic TOPICAL BID PRN PRN; Protocol PRN Reason: ITCHING Last Admin: 11/15/19 19:45 Dose: 1 applic Documented by: Latanoprost (Xalatan Opthalmic) 1 drop OPHTHALMIC DAILY [facility] Last Admin: 11/16/19 09:03 Dose: 1 drop Documented by: Lisinopril (Zestril) 20 mg PO DAILY [facility] Metoprolol Tartrate (Lopressor (Beta Brianna)) 50 mg PO BID [facility] Last Admin: 11/16/19 09:00 Dose: 50 mg Documented by: Morphine Sulfate () 2 mg IV Q3H PRN PRN PRN Reason: Pain Score 6-10/10 Last Admin: 11/15/19 17:46 Dose: 2 mg Documented by: Multivitamins (Multivitamin) 1 tablet PO DAILY@0800 [facility] Last Admin: 11/15/19 11:11 Dose: Not Given Documented by: Nitroglycerin (Nitrostat) 0.4 mg SUBLINGUAL Q5M PRN PRN Reason: CARDIAC/CHEST PAIN Nitroglycerin (Nitrobid) 2 inch TRANSDERM. Q8 SHIRA Last Admin: 11/16/19 06:18 Dose: Not Given Documented by: Ondansetron HCl (Zofran) 4 mg IV Q8H PRN PRN PRN Reason: NAUSEA/VOMITING Last Admin: 11/16/19 07:39 Dose: 4 mg Documented by: Oxycodone HCl (Oxyir) 5 mg PO Q4H PRN PRN PRN Reason: Pain Score 4-10/10 Last Admin: 11/16/19 07:38 Dose: 5 mg Documented by: Sodium Chloride () 10 - 40 ml IV UD PRN PRN Reason: SALINE FLUSH Last Admin: 11/16/19 07:39 Dose: 10 ml Documented by: Discharge Diet: Low fat/ Low Cholesterol Discharge Activity: Return to Normal Activity Call your doctor if you observe: Shortness of breath, Dizziness, Fainting spells, Chest pain Home Medications: Medications to take at Discharge Multivitamin [Daily Multiple Vitamin] 1 ea PO DAILY 04/03/15 furosemide 40 mg tablet 40 mg PO DAILY #90 tab 07/29/19 latanoprost 0.005 % eye drops 1 ml OPHTHALMIC DAILY PRN 07/29/19 lisinopril 20 mg tablet 20 mg PO DAILY #90 tab 07/29/19 metoprolol tartrate 50 mg tablet 50 mg PO BID #180 tab 07/29/19 rivaroxaban 20 mg tablet 20 mg PO DAILY #90 tab 07/29/19 Primary Care Physician: Tiarra Bravo MD [Primary Care Provider] - Please follow up with your Primary Care Physician in: 1 Week Please Follow Up With: Marcus Justin NP-C When: 2 Weeks Disposition: Home Minutes spent on discharge:: 35 Patient Condition:: Stable Medical Necessity - Tobacco Use Smoking Status: Never smoker Tobacco Use: Non-smoker Meaningful Use Info Meaningful Use Diagnoses (Choose all that apply): None applicable <Paintsil,Semmes - Last Filed: 11/16/19 14:32> Discharge Date and Diagnosis - Secondary Discharge Diagnosis Chronic Problems: Chronic Problems (Last Reviewed 09/16/19 @ 15:[address] Terell Shore MD) Stroke (Chronic) Paroxysmal atrial fibrillation (Chronic) Chronic diastolic (congestive) heart failure (Chronic) Bilateral pulmonary embolism (Chronic 05/02/18) Essential (primary) hypertension (Chronic) Hyperlipidemia (Chronic) Central sleep apnea associated with atrial fibrillation (Chronic) Hospital Course and Treatment Summary of Care Provided: This patient was seen in conjunction with Blanca Nathan NP. I have independently interviewed and examined the patient and reviewed pertinent historical, laboratory, and other data. Please refer to her note for patient's presentation, findings, and recommendations. 64-year-old male past medical history of BORIS on CPAP, history of PE on Xarelto, hypertension, super morbid obesity who comes in with complaints of chest discomfort that happened 1 day prior to admission. Patient's chest pain was concerning for acute coronary syndrome. His EKG showed no acute ST changes. He was admitted to telemetry floor. He had his troponins trended and they remain negative. He was seen by cardiology and underwent cardiac catheterization that showed normal coronaries. Patient was discharged to resume his Xarelto in the evening. On the day of discharge, patient was seen and examined for his cardiac cath. He has some chest discomfort. Physical Exam: Gen: Looks in some discomfort, not pale, not jaundiced, alert oriented x3, super morbidly obese CVS:HS I +II, regular, no murmurs RESP: Diminished at lung bases GI: BS present and normal, nontender, no palpable organs EXT:No edema - Physical Exam Vitals/I&O's: Vital Signs Temp Pulse Resp BP Pulse Ox 97.9 F 60 18 120/70 98 11/16/19 14:11/16/19 14:00 11/16/19 14:00 11/16/19 14:11/16/19 14:00 Oxygen Flow Rate (L/min) 2 Oxygen Delivery Method Nasal Cannula Weight: 203.5 kg Body Mass Index (BMI) 53.1 Intake and Output for Last 24 Hours 11/14/19 11/15/19 11/16/19 23:59 23:59 23:59 Intake Total 1100 / 1100 50 / 50 Output Total 1500 / 1500 300 / 300 Balance -400 / -400 -250 / -250 Laboratory Results 11/15/19 15:48: Troponin I < 0.015 11/16/19 05:40: WBC 7.0, RBC 4.49 L, Hgb 14.1, Hct 42.1, MCV 93.8, MCH 31.4, MCHC 33.5, RDW Std Deviation 45.2 H, RDW Coeff of [place] 13.2, Plt Count 141 L, MPV 9.7, Immature Gran % (Auto) 0.400, Neut % (Auto) 61.6, Lymph % (Auto) 23.7, [place] % (Auto) 10.7 H, Eos % (Auto) 3.0, Baso % (Auto) 0.6, Absolute Neuts (auto) 4.3, Absolute Lymphs (auto) 1.66, Nucleated RBC % 0 11/16/19 05:40: Sodium 137, Potassium 3.5, Chloride 102, Carbon Dioxide 29.0, Anion Gap 6, BUN 13, Creatinine 0.92, Estim Creat Clear Calc 104.92, Est GFR (MDRD) Af Amer 107, Est GFR (MDRD) Non-Af 88, BUN/Creatinine Ratio 14.1, Glucose 101, Calcium 8.6, Total Bilirubin 1.70 H, AST 27, ALT 33, Alkaline Phosphatase 77, Total Protein 6.6, Albumin 3.4, Globulin 3.2, Albumin/Globulin Ratio 1.1 11/16/19 05:40: Magnesium 2.0 Current Medications Acetaminophen (Tylenol) 650 mg PO Q6H PRN PRN PRN Reason: Pain Score 1-10/Temp > 100.7 F Last Admin: 11/16/19 09:03 Dose: 650 mg Documented by: Albuterol Sulfate (Ventolin Aerosols) 2.5 mg INHALATION Q2H PRN PRN PRN Reason: SOB/Wheezing Aspirin (Aspirin, Baby) 81 mg PO DAILY@0800 [facility] Last Admin: 11/16/19 07:39 Dose: 81 mg Documented by: Furosemide (Lasix) 40 mg PO DAILY [facility] Last Admin: 11/16/19 13:15 Dose: 40 mg Documented by: Sodium Chloride () 1,000 mls @ 75 mls/hr IV .[id number] [facility] Last Admin: 11/16/19 13:15 Dose: 75 mls/hr Documented by: Ketoconazole (Nizoral) 1 applic TOPICAL BID PRN PRN; Protocol PRN Reason: ITCHING Last Admin: 11/15/19 19:45 Dose: 1 applic Documented by: Latanoprost (Xalatan Opthalmic) 1 drop OPHTHALMIC DAILY [facility] Last Admin: 11/16/19 09:03 Dose: 1 drop Documented by: Lisinopril (Zestril) 20 mg PO DAILY [facility] Metoprolol Tartrate (Lopressor (Beta Brianna)) 50 mg PO BID [facility] Last Admin: 11/16/19 09:00 Dose: 50 mg Documented by: Morphine Sulfate () 2 mg IV Q3H PRN PRN PRN Reason: Pain Score 6-10/10 Last Admin: 11/15/19 17:46 Dose: 2 mg Documented by: Multivitamins (Multivitamin) 1 tablet PO DAILY@0800 [facility] Last Admin: 11/16/19 13:15 Dose: 1 tablet Documented by: Nitroglycerin (Nitrostat) 0.4 mg SUBLINGUAL Q5M PRN PRN Reason: CARDIAC/CHEST PAIN Nitroglycerin (Nitrobid) 2 inch TRANSDERM. Q8 [facility] Last Admin: 11/16/19 13:12 Dose: Not Given Documented by: Ondansetron HCl (Zofran) 4 mg IV Q8H PRN PRN PRN Reason: NAUSEA/VOMITING Last Admin: 11/16/19 07:39 Dose: 4 mg Documented by: Oxycodone HCl (Oxyir) 5 mg PO Q4H PRN PRN PRN Reason: Pain Score 4-10/10 Last Admin: 11/16/19 07:38 Dose: 5 mg Documented by: Sodium Chloride () 10 - 40 ml IV UD PRN PRN Reason: SALINE FLUSH Last Admin: 11/16/19 07:39 Dose: 10 ml Documented by: OBSV E&M: [id number] Observation care discharge
[2019-11-16] MEDS: Furosemide 40 MG Tablet PO (13:15)
[2019-11-16] MEDS: Multivitamins,Therapeutic Tablet 1 TABLET PO (13:15)
[2019-11-16] MEDS: 0.9% Normal Saline 1,000 ML 75 ML IV (13:15)
--- NOTE | 2019-11-16 14:13 | PHA.DC.MR ---
Pharmacy Service has performed discharge medication reconciliation for this patient. The patient's discharge medication list was reviewed for discrepancies and discrepancies were resolved. Home Medications Multivitamin [Daily Multiple Vitamin] 1 ea PO DAILY 04/03/15 furosemide 40 mg tablet 40 mg PO DAILY #90 tab 07/29/19 latanoprost 0.005 % eye drops 1 ml OPHTHALMIC DAILY PRN 07/29/19 lisinopril 20 mg tablet 20 mg PO DAILY #90 tab 07/29/19 metoprolol tartrate 50 mg tablet 50 mg PO BID #180 tab 07/29/19 rivaroxaban 20 mg tablet 20 mg PO DAILY #90 tab 07/29/19
== END 2019-11-16 13:03 | disposition home or self-care (01) ==
LOC: ED 09:28 → PCU 09:54
PROVIDERS: Internal Medicine Cardiovascular Disease; Admitting Provider Internal Medicine; Emergency Provider Emergency Medicine; PCP Family Medicine; Visit Provider Internal Medicine
DX: R07.89 Other chest pain (principal); I48.0 Paroxysmal atrial fibrillation; E66.01 Morbid (severe) obesity due to excess calories; I11.0 Hypertensive heart disease with heart failure; I50.32 Chronic diastolic (congestive) heart failure; G47.31 Primary central sleep apnea; I25.10 Atherosclerotic heart disease of native coronary artery without angina pectoris; R20.2 Paresthesia of skin; E78.5 Hyperlipidemia, unspecified; Z79.899 Other long term (current) drug therapy; Z86.711 Personal history of pulmonary embolism; Z79.01 Long term (current) use of anticoagulants; Z86.73 Personal history of transient ischemic attack (TIA), and cerebral infarction without residual deficits; Z68.43 Body mass index [BMI] 50.0-59.9, adult
CPT/HCPCS: 36415; 71045; 80048; 80053; 80076; 83735; 83880; 84484; 85025; 93005; 93306; 93458; 96361; 96374; 96375; 96376; 99152; 99153; 99218; 99285; J7030; Q9957; Q9967; A4216; C1769; C1894; C8929; G0378; J1940; J2405

== ENCOUNTER → 2019-12-22 12:43 | Outpatient (CLI) | payer BC, SELFPAY ==
[2019-12-10 09:53] VITALS: BMI 54.3
--- NOTE | 2019-12-22 12:44 | CT_ITS ---
STUDY: CT CHEST WITH CONTRAST REASON FOR EXAM: Male, 64 years old. F/U CXR 11/15/19, MIDSTERNAL CP, HAD HEART CATH, HX-CHF, A-FIB, PE, HTN, SLEEP APNEA RADIATION DOSAGE (If Supplied By Facility): CTDIvol = ( 21.18 ) mGy, DLP = ( 898.77 ) mGycm TECHNIQUE: Transaxial imaging was performed following intravenous administration of IV 100mL Isovue-300. Multiplanar coronal and sagittal images were reformatted. Individualized dose optimization techniques were used for this CT. COMPARISON: Comparison is made with prior study dated 05/02/2018. FINDINGS: No nodular density is seen in the left upper lobe. The finding on the chest radiograph represents a prominent left first costochondral junction. There is no demonstrated pleural abnormality. Normal heart and pericardium. Normal mediastinum. Normal hilar regions. Normal enhanced pulmonary arteries. Normal aorta arch and descending thoracic aorta. There are multi-level degenerative changes of the thoracic spine. There is no demonstrated abnormality of the visualized upper abdomen. CT/Chest WITH Contrast IMPRESSION: No acute abnormality is seen. Electronically Signed: Jace Irizarry, at 14:55 EDT , Service support ,
[2019-12-22 13:10] LABS: CREATININE FINGERSTICK 0.8 mg/dL (0.70-1.30)
== END ==
PROVIDERS: PCP Family Medicine; Referring Provider Nurse Practitioner Family; Visit Provider Nurse Practitioner Family
DX: R91.1 Solitary pulmonary nodule (principal); I11.0 Hypertensive heart disease with heart failure; I50.32 Chronic diastolic (congestive) heart failure; I26.99 Other pulmonary embolism without acute cor pulmonale; I48.0 Paroxysmal atrial fibrillation; R07.9 Chest pain, unspecified; G47.37 Central sleep apnea in conditions classified elsewhere
CPT/HCPCS: 71260; Q9967

== ENCOUNTER → 2020-01-30 10:58 | Outpatient (CLI) | payer BC, SELFPAY ==
[2019-12-10 09:53] VITALS: BMI 54.3
--- NOTE | 2020-01-30 11:21 | MRI_ITS ---
STUDY: MRI LUMBAR SPINE WITHOUT CONTRAST REASON FOR EXAM: Male, 64 years old patient with post laminectomy syndrome. Patient has radiculopathy and low back pain across the sacroiliac joint area. Previous lumbar surgery in 2011. TECHNIQUE: Standardized fat and water weighted pulse sequences were obtained in the sagittal and axial planes. COMPARISON: X-ray 11/15/2013, MRI 03/05/2012 FINDINGS: T12-L1: Normal endplates. Normal disc height, hydration and morphology. Normal bilateral facet joints. Normal central canal and bilateral lateral recesses. Normal bilateral intervertebral neural foramina. Normal lumbar lordosis. Mild dextroscoliosis centered at L3. Normal conus medullaris that terminates at the T12/L1. L1-2: Normal endplates. Normal disc height, hydration and morphology. Normal bilateral facet joints. Normal central canal and bilateral lateral recesses. Normal bilateral intervertebral neural foramina. L2-3: Moderate bilateral facet hypertrophy and ligament flavum hypertrophy. No change in the moderate broad disc protrusion which produces moderate spinal stenosis with moderate bilateral lateral recess stenosis with abutment of the L3 nerve roots bilaterally and mild bilateral neural foraminal stenosis. L3-4: Mild bilateral facet hypertrophy and ligament flavum hypertrophy. No change in the moderate bilobed disc protrusion which produces moderate spinal stenosis with moderate bilateral lateral recess stenosis with abutment of the L4 nerve roots bilaterally and mild right neural foraminal stenosis and moderate left neural foraminal stenosis. L4-5: Moderate bilateral facet hypertrophy with fluid in the facet joints consistent with instability and moderate ligament flavum hypertrophy. Enlarging broad disc protrusion which is now moderate in size produces moderate spinal stenosis with moderate bilateral lateral recess stenosis with abutment of the L5 nerve roots bilaterally and moderate bilateral neural foraminal stenosis. L5-S1: Interval discectomy, interbody fusion, and transpedicular fixation with anatomic alignment and no spinal stenosis or neural foraminal stenosis. Normal visualized sacral ala. Normal visualized paraspinous soft tissue structures. MRI/Spine Lumbar (Routine) IMPRESSION: Interval of discectomy, interbody fusion, and transpedicular fixation at L5/S1 with worsening degenerative disc disease at L4/L5. Electronically Signed: Marcos Busby MD at 14:52 EST Tel , Service support ,
== END ==
PROVIDERS: PCP Family Medicine; Referring Provider Orthopaedic Surgery; Visit Provider Orthopaedic Surgery
DX: M96.1 Postlaminectomy syndrome, not elsewhere classified (principal); M47.26 Other spondylosis with radiculopathy, lumbar region; M51.36 Other intervertebral disc degeneration, lumbar region
CPT/HCPCS: 72148

== ENCOUNTER 2020-03-10 14:36 | Emergency (ER) | payer BC, SELFPAY ==
[2020-03-10 12:37] VITALS: BMI 53.1
[2020-03-10 14:36] VITALS: BP 90/51; PULSE 74; RESP 22; TEMP 36.6; O2SAT 100; BMI 53.1
--- NOTE | 2020-03-10 14:51 | EKG12_ITS ---
Test Reason : Blood Pressure : / mmHG Vent. Rate : 078 BPM Atrial Rate : 078 BPM P-R Int : 178 ms QRS Dur : 094 ms QT Int : 400 ms P-R-T Axes : 060 -22 092 degrees QTc Int : 456 ms Sinus rhythm with frequent Premature ventricular complexes Low voltage QRS Borderline ECG Confirmed by ALLISON BUNN, MARIA ISABEL ([id number]), supervising editor trailer WINNIE LEAHY ([id number]) on 03/12/2020 10:28:35 AM Referred By: NAKUL Confirmed By:MARIA ISABEL COOPER MD
--- NOTE | 2020-03-10 14:51 | RAD_ITS ---
STUDY: X-RAY CHEST REASON FOR EXAM: Male, 64 years old. chest pain, sob, recent covid TECHNIQUE: AP COMPARISON: 11/15/2019 FINDINGS: The lungs are clear and expanded. There is no demonstrated pleural abnormality. There is borderline cardiomegaly. Normal mediastinum and demetria. Normal visualized pulmonary arteries. Normal visualized aortic arch and descending thoracic aorta. No acute bony process. There is no demonstrated abnormality of the visualized soft tissue structures of the upper abdomen. RAD/Chest 1 View (Portable) IMPRESSION: Stable, nonacute portable x-ray examination of the chest. Electronically Signed: James Hernandez MD (Brooks) at 15:30 EST , Service support ,
--- NOTE | 2020-03-10 14:52 | ED.DCSUM_ITS ---
- ER Visit Summary Date of Service: 03/10/20 Chief Complaint: [Shortness of breath] History of Present Illness: The patient is a 64 M [presents to the emergency department complaint of shortness of breath that he has had for several weeks. Patient was diagnosed with COVID-19 on February 16. Patient complains of a cough which really does not bring up much. He denies any fevers. He was started on doxycycline 6 days ago. Patient was seen in urgent care today and referred to the emergency department. He describes some discomfort in his chest and feeling like he cannot get a deep breath. Patient does have history of CHF, hypertension, history of A. fib, pulmonary emboli, and obstructive sleep apnea. Patient currently on Xarelto.] Physical Examination: [HEENT-PERRLA, EOMI. Cranial nerves II through XII grossly intact. TMs clear. Mucous membranes moist. No adenopathy. Cardiovascular-regular rate and rhythm without murmur or ectopy Lungs-clear to auscultation, chest wall stable without crepitus or subcu emphysema Abdomen-normoactive bowel sounds, soft, nontender, no rebound or rigidity, no peritoneal signs. Extremities-intact ?4, normal range of motion, normal pulses, atraumatic] Test Results: [EKG obtained on arrival showed a sinus rhythm with a ventricular rate over 78 bpm with occasional PVCs noted. Chest x-ray showed nothing acute. CBC with differential showed a white of 8.4, hemoglobin 14.7, hematocrit 43, plates 182. Chemistries unremarkable. Troponin was less than 0.015. BNP was 150. Influenza screen was negative.] Emergency Department Course and Treatment: [DuoNeb aerosol was given. Was placed on a protective signal operations supervisor on arrival.] Treatment Plan: [At this point etiology of symptoms unclear of not convinced this is related to CHF. I suspect symptoms may be remnant sequela of Covid.] Patient to finish his antibiotics. Patient to follow-up with his primary care physician in 3 to 5 days. Advised to return if increasing shortness of breath or condition should worsen anyway. Disposition: [Discharged home in stable condition] Impression: [Dyspnea Viral URI] This note was generated with Myzeation software. It may contain incorrect words, spelling, and punctuation that were not noted in review of the chart prior to signing ED Disposition - Plan for ED Patient: Referrals: Tiarra Bravo MD [Primary Care Provider] -
[2020-03-10 15:13] LABS: Absolute Lymphocyte Count 1.98 X10^3/uL (0.83-4.51); Absolute Neutrophil Count 5.4 X10^3/uL (2.0-7.7); Basophil# 0.04 X10^3/uL; Basophil% 0.5 % (0-1); Eosinophil# 0.18 X10^3/uL; Eosinophils% 2.1 % (0-5); Hematocrit 43.4 % (40-54); Hemoglobin 14.7 g/dL (13.0-16.5); Lymphocyte # 1.98 X10^3/ul (4.0); Lymphocyte % 23.6 % (19-41); Mean Corp Hgb Conc 33.9 g/dL (32-36); Mean Corpuscular Hgb 31.3 pg (27.0-32.0); Mean Corpuscular Volume 92.5 fL (80-94); Mean Platelet Vol. 9.8 fl (6.2-12.0); Monocyte# 0.74 X10^3/uL; Monocyte% 8.8 % (0-10); NRBC Flagged by Analyzer 0 % (0-5); Neutrophil # 5.41 X10^3/uL (2.7-7.7); Neutrophil % 64.5 % (47-70); Platelet Count 182 K/mm3 (150-450); RBC Distribution Width CV 13.7 % (11.6-14.6); RBC Distribution Width SD 45.4 fl (35.1-43.9); Red Blood Count 4.69 M/mm3 (4.6-6.2); White Blood Count 8.4 K/mm3 (4.4-11.0)
[2020-03-10 15:26] VITALS: BP 139/67; PULSE 70; RESP 20; TEMP 36.6; O2SAT 97
[2020-03-10 15:30] VITALS: O2SAT 98
[2020-03-10 15:34] LABS: Anion Gap 6 (5-15); BUN 16 mg/dL (7-18); BUN/Creat Ratio 18.5 RATIO (10-20); Calcium,Total 8.6 mg/dL (8.5-10.1); Chloride 109 mmol/L (98-107); Creatinine, Serum 0.87 mg/dL (0.70-1.30); EST Glomerular Filtration Rate 95 mL/min (>60); Est Glom Filt Rate - Afr Amer 115 mL/min (>60); Estimated Creatinine Clearance 110.95 ml/min; Glucose 117 mg/dL (74-106); Sodium Level 140 mmol/L (136-145)
[2020-03-10 15:35] LABS: BNP,B-Type NATRIURETIC PEPTIDE 150.3 pg/mL (0-100)
[2020-03-10] MEDS: Ipratropium/Albuterol Sulfate 3 ML AMPUL.NEB INHALATION (15:53)
[2020-03-10 15:54] VITALS: PULSE 74; RESP 15
--- NOTE | 2020-03-10 16:08 | ED.DEP ---
ED Disposition - Plan for ED Patient: Instructions: ED URI, Viral, No Abx (Adult) Referrals: Tiarra Bravo MD [Primary Care Provider] - 3-5 Days
[2020-03-10 16:40] VITALS: BP 140/72; PULSE 75; PULSE 84; RESP 20; O2SAT 96; O2SAT 98
== END 2020-03-10 16:45 | disposition home or self-care (01) ==
LOC: ED 15:01
PROVIDERS: Emergency Provider Emergency Medicine; PCP Family Medicine
DX: R09.02 Hypoxemia (principal); J06.9 Acute upper respiratory infection, unspecified; I11.0 Hypertensive heart disease with heart failure; I50.9 Heart failure, unspecified; I48.91 Unspecified atrial fibrillation; G47.33 Obstructive sleep apnea (adult) (pediatric); Z79.01 Long term (current) use of anticoagulants; Z79.899 Other long term (current) drug therapy; Z86.16 Personal history of COVID-19; Z86.73 Personal history of transient ischemic attack (TIA), and cerebral infarction without residual deficits; Z86.711 Personal history of pulmonary embolism
CPT/HCPCS: 71045; 80048; 83880; 84484; 85025; 87804; 93005; 94640; 99284

== ENCOUNTER 2020-05-06 07:45 | Observation (INO) | payer BC, SELFPAY ==
[2020-04-25 09:08] VITALS: BMI 54.3
[2020-05-06 07:46] VITALS: BP 118/67; PULSE 85; RESP 20; TEMP 36.6; O2SAT 99; BMI 55.9
--- NOTE | 2020-05-06 07:56 | CT_ITS ---
STUDY: CT ABDOMEN AND PELVIS WITH CONTRAST REASON FOR EXAM: Male, 64 years old. left flank pain RADIATION DOSAGE (If Supplied By Facility): CTDIvol = ( 59.58 ) mGy, DLP = ( 5699.48 ) mGycm TECHNIQUE: Transaxial images were obtained from the dome of the diaphragm to the symphysis pubis without oral contrast. IV 100mL Isovue-300 was administered. Sagittal and coronal images were reconstructed. Individualized dose optimization techniques were used for this CT. COMPARISON: 12/28/2018 FINDINGS: The visualized lung bases are unremarkable. The visualized portions of the heart are within normal limits. Normal liver. There are multiple gallstones. Normal spleen. Normal pancreas. Normal bilateral adrenal glands. Normal right kidney. Normal left kidney. Normal visualized stomach. Normal small intestine. Normal colon. The appendix is visualized and appears normal. Normal abdominal aorta. Normal inferior vena cava. Normal retroperitoneum. Normal urinary bladder. Normal abdominal wall. There are diffuse degenerative changes of the visualized lumbar spine. Status post transpedicular fixation lower lumbar spine. CT/Abdomen/Pelvis W IV Cont ONLY IMPRESSION: No acute abnormality. Cholelithiasis. Electronically Signed: Marcos Busby MD at 9:37 EST Tel , Service support ,
--- NOTE | 2020-05-06 07:57 | ED.VIS.GEN ---
History of Present Illness Chief Complaint: Back Informant: Patient Narrative: 64-year-old male presenting with lower back pain. He states he has history of surgery to L4, L5, S1 distantly. Patient states he recently had an exacerbation and was placed on muscle relaxers. Patient states that when he woke up this morning he was unable to get up and walk. He denies loss of bladder or bowel control. He has no paresthesias. Denies any new trauma to his back. - Past Medical History (1) Paroxysmal atrial fibrillation Status: Chronic (2) Chronic diastolic (congestive) heart failure Status: Chronic (3) Bilateral pulmonary embolism Status: Chronic (4) Essential (primary) hypertension Status: Chronic (5) Hyperlipidemia Status: Chronic Past Medical History - Allergies and Home Meds Allergies/Adverse Reactions: Allergies Penicillins Allergy (Verified 05/06/20 07:54) Anaphylaxis Sulfa (Sulfonamide Antibiotics) Allergy (Verified 05/06/20 07:54) Hives Prior records reviewed: Yes Past Medical History: - - Reviewed in problem list Surgical History: noncontributory, tonsillectomy, - - Right knee arthroscopy X2, nose fracture surgical repair, L4-L5 and S1 fusion. Lives: Spouse/ Significant Other Alcohol: None Drugs: None - Family History Maternal Family History: Family History (Last Reviewed 04/25/20 @ 15:[address] Terell Shore MD) Father Cancer Family History: Reports: Dementia Paternal Family History: Family History (Last Reviewed 04/25/20 @ 15:[address] Terell Shore MD) Father Cancer Family History: Reports: Cancer Review of Systems General: Denies: Chills, Fever, Sweats Eyes: Denies: Visual changes - bilaterally, Diplopia ENT: Denies: Rhinorrhea, Sore throat Cardiovascular: Denies: Chest pain, Palpitations Respiratory: Denies: Dyspnea, Cough, Dyspnea on exertion Gastrointestinal: Denies: Abdominal pain, Nausea, Vomiting, Diarrhea, Melena, Hematochezia Genitourinary: Denies: Dysuria, Hematuria, Frequency Musculoskeletal: Reports: Back pain. Denies: Extremity Pain Skin: Denies: Rash, Abscess Neurological: Denies: Headache, Weakness Psych: Denies: Depression, Anxiety Physical Exam Vital Signs/Narrative: Vital Signs Temp Pulse Resp BP Pulse Ox 05/06/20 07:46 98 F 85 20 H 118/67 99 Inital Vital Signs reviewed: Yes General: Obese, No Acute Distress Head: Normocephalic, Atraumatic Eyes: Perrl, EOMI ENT: Moist mucous membranes, No rhinorrhea Cardiovascular: Regular rate, Regular rhythm Respiratory: No distress, CTA bilaterally Abdomen: Soft, Nontender, Nondistended Back: Nontender - Tenderness to palpation left lumbar paraspinal musculature. No midline spinal deformity or step-off. Extremities: Nontender Skin: Normal color, No rash Neurological: Alert, Oriented x3 Psychological: Normal affect, Normal Mood Diagnostic/Tx/Re-eval Clinical Impression(s) from Imaging Studies Abdomen/Pelvis CT 05/06/20 07:56 IMPRESSION: No acute abnormality. Cholelithiasis. Electronically Signed: Marcos Busby MD at 9:37 EST Tel , Service support , Laboratory Data 05/06/20 05/06/20 08:10 08:10 WBC 5.3 RBC 4.84 Hgb 14.9 Hct 46.1 MCV 95.2 H MCH 30.8 MCHC 32.3 RDW Std Deviation 47.2 H RDW Coeff of [place] 13.4 Plt Count 142 L MPV 9.7 Immature Gran % (Auto) 0.200 Neut % (Auto) 60.5 Lymph % (Auto) 26.3 [place] % (Auto) 8.3 Eos % (Auto) 3.8 Baso % (Auto) 0.9 Absolute Neuts (auto) 3.2 Absolute Lymphs (auto) 1.39 Nucleated RBC % 0 Sodium 140 Potassium 3.9 Chloride 106 Carbon Dioxide 26.0 Anion Gap 8 BUN 19 H Creatinine 1.06 Estim Creat Clear Calc 91.06 Est GFR (MDRD) Af Amer 91 Est GFR (MDRD) Non-Af 75 BUN/Creatinine Ratio 17.9 Glucose 120 H Calcium 8.8 - Medical Decision Making -year-old male with history of back pain presents with inability to ambulate secondary to back pain. He has no symptoms of cauda equina syndrome. Patient has been seeing Dr. Landaverde outpatient. Given the patient's pain he was given morphine and Toradol initially as well as Solu-Medrol. He complained of more pain and was given Valium and another dose of morphine. Given that he cannot get up and ambulate I discussed him with his spinal orthopedic surgeon Dr. Landaverde who stated he could see him in the hospital and possibly do some nerve blocks. Lab work was unremarkable. He had CT which showed no acute process.Patient was admitted to the hospitalist. Impression: 1. Intractable back pain ED Disposition - Plan for ED Patient: Disposition: Acute Care Hospital [facility]
[2020-05-06] MEDS: Ondansetron 4 MG/2 ML Vial IV (08:07)
[2020-05-06] MEDS: Ketorolac 15 MG/ML Vial IV (08:09)
[2020-05-06] MEDS: Morphine 4 MG/ML Syringe IV ×3 (08:10→13:58)
[2020-05-06 08:29] LABS: Absolute Lymphocyte Count 1.39 X10^3/uL (0.83-4.51); Absolute Neutrophil Count 3.2 X10^3/uL (2.0-7.7); Basophil# 0.05 X10^3/uL; Basophil% 0.9 % (0-1); Eosinophils% 3.8 % (0-5); Hematocrit 46.1 % (40-54); Hemoglobin 14.9 g/dL (13.0-16.5); Lymphocyte # 1.39 X10^3/ul (4.0); Lymphocyte % 26.3 % (19-41); Mean Corp Hgb Conc 32.3 g/dL (32-36); Mean Corpuscular Hgb 30.8 pg (27.0-32.0); Mean Corpuscular Volume 95.2 fL (80-94); Mean Platelet Vol. 9.7 fl (6.2-12.0); Monocyte# 0.44 X10^3/uL; Monocyte% 8.3 % (0-10); NRBC Flagged by Analyzer 0 % (0-5); Neutrophil # 3.19 X10^3/uL (2.7-7.7); Neutrophil % 60.5 % (47-70); Platelet Count 142 K/mm3 (150-450); RBC Distribution Width CV 13.4 % (11.6-14.6); RBC Distribution Width SD 47.2 fl (35.1-43.9); Red Blood Count 4.84 M/mm3 (4.6-6.2); White Blood Count 5.3 K/mm3 (4.4-11.0)
[2020-05-06 08:43] LABS: Anion Gap 8 (5-15); BUN 19 mg/dL (7-18); BUN/Creat Ratio 17.9 RATIO (10-20); Calcium,Total 8.8 mg/dL (8.5-10.1); Chloride 106 mmol/L (98-107); Creatinine, Serum 1.06 mg/dL (0.70-1.30); EST Glomerular Filtration Rate 75 mL/min (>60); Est Glom Filt Rate - Afr Amer 91 mL/min (>60); Estimated Creatinine Clearance 91.06 ml/min; Glucose 120 mg/dL (74-106); Potassium 3.9 mmol/L (3.5-5.1); Sodium Level 140 mmol/L (136-145)
[2020-05-06] MEDS: MethylPREDNISolone 125 MG/2 ML Vial IV (09:00)
[2020-05-06] MEDS: diazePAM 2 MG Tablet PO (09:01)
--- NOTE | 2020-05-06 10:39 | HP.PCM_ITS ---
Problem List (1) Paroxysmal atrial fibrillation Status: Chronic (2) Chronic diastolic (congestive) heart failure Status: Chronic (3) Bilateral pulmonary embolism Status: Chronic (4) Essential (primary) hypertension Status: Chronic (5) Hyperlipidemia Status: Chronic Qualifiers: Hyperlipidemia type: unspecified Qualified Code(s): E78.5 - Hyperlipidemia, unspecified History of Present Illness Date of Admission: 05/06/20 Chief Complaint: Acute back pain - 2 weeks The patient is a 64 year old M with past medical history of degenerative spine disease, history of BORIS on CPAP, bilateral PE, on Xarelto, paroxysmal atrial fibrillation seen with complaints of severe back pain that started 2 weeks ago. Patient denied any fall or trauma. He started having left-sided, sharp, low back pain, that radiates down his left leg. Was relieved with Tylenol and Flexeril. He traveled out of [facility] on a working visit to [place]. He got severe back spasms. He follows with Dr. Landaverde in the outpatient in his office called down some Flexeril for him. Since being back, patient has had persistent back pain that prevents him from standing or moving. He denied any tingling or numbness or incontinence of urine or stool. The pain has been severe and has been limiting his activities. Vitals in the ED showed temperature of 98F, heart rate 85, blood pressure 118/67, respiratory rate 20, SPO2 99% on room air. Admitting blood work has been unremarkable. CT of the abdomen and pelvis showed cholelithiasis but no abnormality. Past Medical History Past Medical History (Chronic Problems): Chronic Problems (Last Reviewed 04/25/20 @ 15:[address] Terell Shore MD) Paroxysmal atrial fibrillation (Chronic) Chronic diastolic (congestive) heart failure (Chronic) Bilateral pulmonary embolism (Chronic 05/02/18) Essential (primary) hypertension (Chronic) Hyperlipidemia (Chronic) Central sleep apnea associated with atrial fibrillation (Chronic) Medical History: Medical History (Last Reviewed 04/25/20 @ 15:[address] Terell Shore MD) COVID-19 virus detected (Resolved) Onset Date: 02/17/20 U07.1 Paroxysmal atrial fibrillation (Chronic) I48.0 Chronic diastolic (congestive) heart failure (Chronic) I50.32 Bilateral pulmonary embolism (Chronic) Onset Date: 05/02/18 I26.99 Essential (primary) hypertension (Chronic) I10 Hyperlipidemia (Chronic) E78.5 Central sleep apnea associated with atrial fibrillation (Chronic) I48.91, G47.37 Central sleep apnea G47.31 Obesity E66.9 Back pain M54.9 Chest pain R07.9 Diffuse otitis externa, left ear (Resolved) H60.312 Dysfunction of both eustachian tubes (Resolved) H69.83 Fatigue R53.83 Knee pain M25.569 SOB (shortness of breath) R06.02 Severe headache R51.9 Paroxysmal atrial fibrillation with rapid ventricular response Onset Date: 05/02/18 I48.0 Persistent atrial fibrillation (Inactive) I48.1 Allergies Penicillins Allergy (Verified 05/06/20 07:54) Anaphylaxis Sulfa (Sulfonamide Antibiotics) Allergy (Verified 05/06/20 07:54) Hives Home Medications: Ambulatory Orders Medication Instructions Recorded furosemide 40 mg tablet 40 mg PO DAILY #90 tab 07/29/19 metoprolol tartrate 50 mg tablet 50 mg PO BID #180 tab 07/29/19 Lisinopril 20 mg PO DAILY 03/10/20 latanoprost 0.005 % eye drops 1 drp OPHTHALMIC DAILY ml 04/25/20 meloxicam 15 mg tablet 15 mg PO DAILY tab 04/25/20 Rivaroxaban [Xarelto] 20 mg PO DINNER 05/06/20 cycloBENZAPRine HCl [Flexeril] 10 mg PO BID PRN PRN 05/06/20 Surgical History: Surgical History (Last Reviewed 04/25/20 @ 15:[address] Terell Shore MD) History of tonsillectomy and adenoidectomy Z98.890 History of back surgery Z98.890 History of cardioversion Onset Date: 07/13/18 Z98.890 History of knee surgery Z98.890 History of left heart catheterization Onset Date: 11/16/19 Z98.890 History of total right knee replacement Z96.651 Surgical History: noncontributory, tonsillectomy, - - Right knee arthroscopy X2, nose fracture surgical repair, L4-L5 and S1 fusion. Psychiatric History: No pertinent psych hx Lives: Spouse/ Significant Other Smoking Status: Never smoker Tobacco Use: Non-smoker Alcohol: None Drugs: None - *Family History Maternal Family History: Family History (Last Reviewed 04/25/20 @ 15:[address] Terell Shore MD) Father Cancer History Items: Dementia Paternal Family History: Family History (Last Reviewed 04/25/20 @ 15:[address] Terell Shore MD) Father Cancer History Items: Cancer Review of Systems Constitutional: Denies: Anorexia, Chills, Fever, Malaise, Weakness, Weight Change, Fatigue Eyes: Denies: Blurred vision, Cataracts HEENT: Denies: Difficulty Hearing, Difficulty Swallowing, Head Aches, Hearing Changes, Sinus Congestion, Sinus Drainage Cardiovascular: Denies: Chest Pain, Claudication, Orthopnea, Palpitations Respiratory: Denies: Cough, Hemoptysis, Shortness of breath at rest, Shortness of breath upon exertion, Sputum production Gastrointestinal: Denies: Abdominal Pain, Constipation, Hematemesis, Hematochezia, Nausea, Vomiting Genitourinary: Denies: Dysuria Musculoskeletal: Reports: Back Pain. Denies: Joint Pain, Joint Tenderness Skin: Denies: Dryness, Pruritis, Rash, Wounds Neurological: Denies: Difficulty swallowing, Focal weakness, Numbness, Tingling Psychiatric: Denies: Anxiety, Depression, Homicidal Ideations, Suicidal Ideations Hematologic/ Lymphatic: Denies: Easy Bruising, Easy Bleeding VTE Information - Inpt Only VTE Present on Admission: No VTE Pharm Prophylaxis ordered?: Yes - Physical Exam Vitals/I&O's: Vital Signs Temp Pulse Resp BP Pulse Ox 98 F 85 20 H 118/67 99 05/06/20 07:46 05/06/20 07:46 05/06/20 07:46 05/06/20 07:46 05/06/20 07:46 Oxygen Delivery Method Room Air Weight: 214 kg Body Mass Index (BMI) 55.9 General: Alert, Oriented x3, Cooperative, No apparent distress, - - in severe pain, super morbidly obese HEENT: Atraumatic, PERRLA, EOMI, Normocephalic Oral: Moist Mucosa Neck: Supple Lungs: Clear to auscultation, Normal air movement Cardiovascular: Regular rate, Regular Rhythm, Normal S1, Normal S2, No murmurs Abdomen: Bowel Sounds Present, Soft, Non Tender, Non-Distended, No Hepato- splenomegaly Extremities: Edema - bilateral trace edema Skin: No rashes, No breakdown Musculoskeletal: No Tenderness to Palpation of Joints or Extremities Neurological: Cranial nerves II-XII grossly intact Psych/Mental Status: Normal Affect, Appropriate Laboratory Results 05/06/20 08:10: WBC 5.3, RBC 4.84, Hgb 14.9, Hct 46.1, MCV 95.2 H, MCH 30.8, MCHC 32.3, RDW Std Deviation 47.2 H, RDW Coeff of [place] 13.4, Plt Count 142 L, MPV 9.7, Immature Gran % (Auto) 0.200, Neut % (Auto) 60.5, Lymph % (Auto) 26.3, [place] % (Auto) 8.3, Eos % (Auto) 3.8, Baso % (Auto) 0.9, Absolute Neuts (auto) 3.2, Absolute Lymphs (auto) 1.39, Nucleated RBC % 0 05/06/20 08:10: Sodium 140, Potassium 3.9, Chloride 106, Carbon Dioxide 26.0, Anion Gap 8, BUN 19 H, Creatinine 1.06, Estim Creat Clear Calc 91.06, Est GFR (MDRD) Af Amer 91, Est GFR (MDRD) Non-Af 75, BUN/Creatinine Ratio 17.9, Glucose 120 H, Calcium 8.8 Current Medications Furosemide (Furosemide 40 Mg Tablet) 40 mg PO DAILY [facility] Latanoprost (Latanoprost 0.005% 1 Bottle) 1 drop OPHTHALMIC DAILY [facility] Lisinopril (Lisinopril 20 Mg Tablet) 20 mg PO DAILY [facility] Meloxicam (Meloxicam 15 Mg Tablet) 15 mg PO DAILY [facility] Metoprolol Tartrate (Metoprolol Tartrate 50 Mg Tablet) 50 mg PO BID [facility] Assessment/Plan All Active Problems (Last Reviewed 04/25/20 @ 15:[address] Terell Shore MD) Dyspnea (Acute) COVID-19 virus detected (Resolved 02/17/20) Chest pain (Resolved) Chest pain, unspecified (Resolved) Chest tightness (Resolved) Diffuse otitis externa, left ear (Resolved) Dysfunction of both eustachian tubes (Resolved) Stroke (Ruled-out) 1. Acute intractable low back pain, patient with chronic back pain Status post discectomy, interbody fusion and transpedicular fixation at L5/S1 with worsening degenerative disc disease at L4-L5 Continue with scheduled Tylenol, Flexeril as needed, oxycodone as needed, morphine as needed Spine surgery, Dr. Landaverde consulted PT/OT to evaluate and treat 2. Hypertension, controlled, continue lisinopril and metoprolol 3. Paroxysmal atrial fibrillation, on metoprolol, Xarelto on hold for possible spine surgery procedures 4. BORIS on CPAP 5. Super morbid obesity, BMI 55.9, lifestyle modification recommended 6. DVT PPx- Lovenox BID for now OBSV E&M: [id number] Initial observation care L3
[2020-05-06 10:40] VITALS: BP 110/81; PULSE 70; RESP 18; TEMP 36.3; O2SAT 97
[2020-05-06 12:07] VITALS: BMI 55.9
[2020-05-06 12:30] VITALS: BP 140/70; PULSE 84; RESP 18; TEMP 36.5; O2SAT 94
[2020-05-06 12:46] VITALS: BMI 55.9
[2020-05-06] MEDS: 0.9% Saline Lock 10 ML Syringe IV (13:58)
--- NOTE | 2020-05-06 14:02 | CPS ---
SMI placed at bedside. P.T. working with pt at this time
[2020-05-06 14:30] VITALS: RESP 18
[2020-05-06 14:45] LABS: AST(SGOT) 20 U/L (15-37); Alanine Aminotransfer ALT/SGPT 29 U/L (16-61); Albumin, Serum 3.4 g/dL (3.2-5.0); Alkaline Phosphatase 89 U/L (45-117); Bilirubin, Direct 0.24 mg/dL (0.00-0.30); Protein, Total 6.4 g/dL (6.4-8.2)
--- NOTE | 2020-05-06 14:59 | EKG12_ITS ---
Test Reason : ROUTINE Blood Pressure : / mmHG Vent. Rate : 082 BPM Atrial Rate : 340 BPM P-R Int : 000 ms QRS Dur : 082 ms QT Int : 368 ms P-R-T Axes : 076 -26 045 degrees QTc Int : 429 ms Atrial flutter with variable A-V block Low voltage QRS Nonspecific T wave abnormality Abnormal ECG When compared with ECG of 10-MAR-2020 15:07, Atrial flutter has replaced Sinus rhythm Nonspecific T wave abnormality, worse in Lateral leads Confirmed by ALLISON BUNN, MARIA ISABEL ([id number]), photographic editor WINNIE LEAHY ([id number]) on 05/08/2020 12:39:23 PM Referred By: MINESH Confirmed By:MARIA ISABEL COOPER MD
[2020-05-06] MEDS: cycloBENZAPRine HCl 10 MG Tablet PO ×2 (15:35→21:06)
[2020-05-06] MEDS: Acetaminophen 500 MG Tablet 1000 MG PO ×2 (15:36→20:48)
--- NOTE | 2020-05-06 18:50 | NURSING ---
states had COVID last 2 weeks of 2019
[2020-05-06 20:48] VITALS: PULSE 70
[2020-05-06] MEDS: Metoprolol Tartrate 50 MG Tablet PO (20:48)
[2020-05-06] MEDS: Enoxaparin 40 MG/0.4 ML Syringe SC (20:49)
[2020-05-06 21:09] VITALS: BP 127/66; PULSE 70; RESP 18; TEMP 36.7; O2SAT 94
[2020-05-07] VITALS (7 sets, daily range): BP systolic 106–128; BP diastolic 52–78; PULSE 62–80; RESP 16–18; TEMP 36.3–36.7; O2SAT 95–97
[2020-05-07] MEDS: oxyCODONE 5 MG Tablet 10 MG PO ×3 (00:39→21:33)
[2020-05-07 05:31] LABS: Absolute Lymphocyte Count 1.04 X10^3/uL (0.83-4.51); Absolute Neutrophil Count 10.9 X10^3/uL (2.0-7.7); Basophil# 0.01 X10^3/uL; Basophil% 0.1 % (0-1); Hematocrit 43.8 % (40-54); Lymphocyte # 1.04 X10^3/ul (4.0); Lymphocyte % 8.2 % (19-41); Mean Corpuscular Hgb 30.7 pg (27.0-32.0); Mean Corpuscular Volume 96.1 fL (80-94); Mean Platelet Vol. 9.4 fl (6.2-12.0); Monocyte# 0.65 X10^3/uL; Monocyte% 5.1 % (0-10); NRBC Flagged by Analyzer 0 % (0-5); Neutrophil # 10.88 X10^3/uL (2.7-7.7); Neutrophil % 86.1 % (47-70); Platelet Count 145 K/mm3 (150-450); RBC Distribution Width CV 13.4 % (11.6-14.6); RBC Distribution Width SD 47.7 fl (35.1-43.9); Red Blood Count 4.56 M/mm3 (4.6-6.2); White Blood Count 12.6 K/mm3 (4.4-11.0)
[2020-05-07 05:48] LABS: AST(SGOT) 13 U/L (15-37); Alanine Aminotransfer ALT/SGPT 25 U/L (16-61); Alkaline Phosphatase 74 U/L (45-117); Anion Gap 7 (5-15); BUN 27 mg/dL (7-18); BUN/Creat Ratio 27.1 RATIO (10-20); Calcium,Total 8.8 mg/dL (8.5-10.1); Chloride 105 mmol/L (98-107); EST Glomerular Filtration Rate 81 mL/min (>60); Est Glom Filt Rate - Afr Amer 98 mL/min (>60); Estimated Creatinine Clearance 96.53 ml/min; Globulin 2.9 g/dL (2.2-4.2); Glucose 141 mg/dL (74-106); Potassium 4.4 mmol/L (3.5-5.1); Protein, Total 5.9 g/dL (6.4-8.2); Sodium Level 140 mmol/L (136-145)
[2020-05-07] MEDS: Acetaminophen 500 MG Tablet 1000 MG PO ×3 (05:56→21:27)
[2020-05-07] MEDS: cycloBENZAPRine HCl 10 MG Tablet PO ×2 (05:58→14:09)
--- NOTE | 2020-05-07 08:00 | MRI_ITS ---
STUDY: MRI LUMBAR SPINE WITH AND WITHOUT CONTRAST REASON FOR EXAM: Male, 64 years old. Acute back pain x10 days and chronic back pain. TECHNIQUE: Standardized fat and water weighted pulse sequences were obtained in the sagittal and axial planes. 40ML IV DOTAREM was administered for the contrast portion of the examination. COMPARISON: MRI lumbar spine without contrast 01/30/2020. CT abdomen and pelvis with IV contrast 05/06/2020. FINDINGS: T11-T12: (Sagittal only). Normal T11 inferior endplate. Slight anterior wedging of T12 superior endplate is presumably from remote injury and unchanged. Mild disc space height narrowing. Normal disc hydration and morphology. Normal central canal and bilateral intervertebral neural foramina. T12-L1: (Sagittal only). Normal endplates. Mild anterior disc space height narrowing with normal disc hydration. No ventral extradural defect. Normal central canal and bilateral intervertebral neural foramina. Normal lumbar lordosis. There is no substantial scoliosis. Normal conus medullaris that terminates at the T12-L1 disc space level. L1-2: Anterior marginal spurs. Schmorl''s node in the L1 central inferior endplate. Normal L2 superior endplate. Mild disc space height narrowing. Right L2 supra pedicular foraminal zone disc extrusion is unchanged (series 2, image 11; series 5, images 21-22). Normal central canal and left intervertebral neural foramen. Normal facet joints. L2-3: Anterior marginal spurs. MODIC type II degenerative vertebral marrow fatty changes underneath the right side of the vertebral endplates. Moderate right-sided disc space height narrowing. Mild degenerative retrolisthesis of L2 on L3. Pronounced central canal stenosis with an AP canal diameter of 5.2 mm is unchanged. Small posterior midline disc protrusion is unchanged. Normal bilateral lateral recesses. Pronounced left degenerative facet arthropathy and moderate right degenerative facet arthropathy. Normal bilateral intervertebral neural foramina. L3-4: Anterior marginal spurs. MODIC type II degenerative vertebral marrow fatty changes underneath the vertebral endplates. Moderate disc space height narrowing. Moderately pronounced central canal stenosis with an AP canal diameter of 6 mm. Normal bilateral lateral recesses. Moderate bilateral degenerative facet arthropathy. Normal bilateral intervertebral neural foramina. L4-5: Anterior marginal spurs. MODIC type II degenerative vertebral marrow fatty changes underneath the vertebral endplates. Pronounced central canal stenosis with an AP canal diameter of 4 mm. Pronounced bilateral degenerative facet hypertrophy. Moderately pronounced stenosis of the right intervertebral neural foramen and moderate stenosis of the left intervertebral neural foramen. L5-S1: Disc implant in situ disc space with MODIC type II degenerative vertebral marrow fatty changes underneath the vertebral endplates. Pedicular screws and rods causing signal distortion artifacts. Normal central canal and bilateral lateral recesses. Pronounced right degenerative facet arthropathy and moderate left ureter facet arthropathy. Moderate stenosis of the intervertebral neural foramina are unchanged. Normal visualized sacral ala. Normal visualized paraspinous soft tissue structures. No abnormal contrast enhancing lesions intradurally and extradurally. MRI/Spine Lumbar W/WO Contrast IMPRESSION: 1. Right L2 supra pedicular foraminal zone disc extrusion at L1-L2 disc level (series 2, image 11; series 5, images 21-22) but unchanged when compared to 01/30/2020. 2. Pronounced central canal stenosis at L2-L3 disc space level with an AP canal diameter of 5.2 mm, mild degenerative retrolisthesis of L2 on L3 and small posterior midline disc protrusion are unchanged. 3. Moderately pronounced central canal stenosis at L3-L4 disc space level with an AP canal diameter of 6 mm. This level is unchanged. 4. Pronounced central canal stenosis at L4-L5 disc space level with an AP canal diameter of 4 mm, moderately pronounced stenosis of the right intervertebral neural foramen, moderate stenosis of the left intervertebral neural foramen and pronounced bilateral degenerative facet hypertrophy. This level is unchanged. 5. Pronounced right L5-S1 degenerative facet arthropathy, moderate left L5-S1 degenerative facet arthropathy, disc implant with pedicular screws causing signal distortion of the moderate stenosis of the intervertebral neural foramina. This level is unchanged. 6. No abnormal enhancing lesions intradurally and extradurally. Electronically Signed: Dejan Sanchez MD at 11:16 EST , Service support ,
[2020-05-07] MEDS: Morphine 4 MG/ML Syringe IV ×3 (08:26→17:52)
[2020-05-07] MEDS: 0.9% Saline Lock 10 ML Syringe IV ×3 (08:27→17:52)
[2020-05-07] MEDS: Meloxicam 15 MG Tablet PO (10:23)
[2020-05-07] MEDS: Furosemide 40 MG Tablet PO (10:23)
[2020-05-07] MEDS: Metoprolol Tartrate 50 MG Tablet PO ×2 (10:23→21:28)
[2020-05-07] MEDS: Lisinopril 20 MG Tablet PO (10:23)
[2020-05-07] MEDS: Enoxaparin 40 MG/0.4 ML Syringe SC (10:23)
[2020-05-07] MEDS: Latanoprost 0.005% 1 Bottle 1 DRP OPHTHALMIC (10:28)
--- NOTE | 2020-05-07 12:24 | CON.PCM_ITS ---
Problem List (1) Lumbar stenosis without neurogenic claudication Status: Acute - Consult Date of Consult: 05/07/20 - Reason for Consult The patient is a 64-year-old male here with acute exacerbation of chronic back pain. He has been seen by me in my clinic in the past for this. He does have a history of lumbar fusion years ago. He states that over the past week he has had increasing pain in the left lumbar region that is worse with activity and be tter with rest. He states that the pain became significant enough for it to affect his ability to stand and walk. The patient denies any acute numbness tingling weakness or changes in bowel or bladder function. He presented to the emergency department and was subsequently admitted for pain control. I have been consulted for evaluation and management. A lumbar MRI scan was performed dated 05/07/2020 which shows no significant changes from his prior lumbar MRI. He does have significant adjacent level degenerative changes with degenerative disc disease and spondylosis and associated stenosis most severe at L4-5. He has seen Dr. Varela in the recent past for pain management, but has not yet scheduled injections with him. The patient was seen and examined. He is lying in bed resting comfortably. He does have pain and spasming in the left lumbar region with movement. Alert and oriented x3, no acute distress Abdomen soft and nontender Mild to moderate tenderness to palpation of the left lumbar paraspinal region. Extremities: Neurovascularly intact. Sensation and motor are intact grossly and symmetrical. Reflexes and pulses are normal and symmetric. Assessment: Acute exacerbation of chronic low back pain Lumbar spondylosis, degenerative disc disease, stenosis Plan: I had a lengthy discussion with the patient. After discussing the risk, benefits, and alternatives I recommend a bilateral L4-5 transforaminal epidural steroid injection. The patient agrees to proceed. We will schedule this injection to be done while he is inpatient. The goal of the injection is to get his pain to a manageable level so that he is able to ambulate again. After discharge he will follow up with me in the office. He understands and agrees with the treatment plan.
--- NOTE | 2020-05-07 15:29 | PN_ITS ---
Patient Problems: Active and Suspected Problems (Last Reviewed 04/25/20 @ 15:[address] Terell Shore MD) Lumbar stenosis without neurogenic claudication (Acute) Subjective: Patient seen and examined. He has been managed for intractable back pain.- Lumbar MRI today which showed pronounced central canal stenosis at L2-3 and moderate central canal stenosis at L3-4 plus multilevel disc arthropathy. Spine surgery has been consulted. He has remained hemodynamically stable. Vitals/I&O's: Vital Signs Temp Pulse Resp BP Pulse Ox 97.5 F L 64 16 112/60 95 05/07/20 14:06 05/07/20 14:06 05/07/20 14:06 05/07/20 14:06 05/07/20 14:06 Oxygen Delivery Method Room Air Weight: 468 lb 7.717 oz Body Mass Index (BMI) 55.9 Intake and Output for Last 24 Hours 05/05/20 05/06/20 05/07/20 23:59 23:59 23:59 Intake Total 250 / 250 500 / 500 Output Total 300 / 300 975 / 975 Balance -50 / -50 -475 / -475 General: Alert, Oriented x3, Cooperative HEENT: Atraumatic, PERRLA, EOMI, Normocephalic Oral: Moist Mucosa Neck: Supple, No JVD, Negative Carotid Bruits Lungs: Clear to auscultation, Normal air movement Cardiovascular: Regular rate, No murmurs Abdomen: Bowel Sounds Present, Soft, Non Tender Extremities: No edema, Capillary Refill Less than 3 Seconds Skin: No rashes, No breakdown Musculoskeletal: No Tenderness to Palpation of Joints or Extremities Lymphatic: No Cervical, Supraclavicular, or Inguinal Adenopathy Neurological: Cranial nerves II-XII grossly intact Psych/Mental Status: Normal Affect, Appropriate, Alert and oriented to time, place, person, mood and affect Laboratory Results 05/07/20 05:20: WBC 12.6 H, RBC 4.56 L, Hgb 14.0, Hct 43.8, MCV 96.1 H, MCH 30.7, MCHC 32.0, RDW Std Deviation 47.7 H, RDW Coeff of [place] 13.4, Plt Count 145 L, MPV 9.4, Immature Gran % (Auto) 0.500, Neut % (Auto) 86.1 H, Lymph % (Auto) 8.2 L, [place] % (Auto) 5.1, Eos % (Auto) 0.0, Baso % (Auto) 0.1, Absolute Neuts (auto) 10.9 H, Absolute Lymphs (auto) 1.04, Nucleated RBC % 0 05/07/20 05:20: Sodium 140, Potassium 4.4, Chloride 105, Carbon Dioxide 28.0, Anion Gap 7, BUN 27 H, Creatinine 1.00, Estim Creat Clear Calc 96.53, Est GFR (MDRD) Af Amer 98, Est GFR (MDRD) Non-Af 81, BUN/Creatinine Ratio 27.1 H, Glucose 141 H, Calcium 8.8, Total Bilirubin 0.90, AST 13 L, ALT 25, Alkaline Phosphatase 74, Total Protein 5.9 L, Albumin 3.0 L, Globulin 2.9, Albumin/Globulin Ratio 1.0 Diagnostic Data Abdomen/Pelvis CT 05/06/20 07:56 IMPRESSION: No acute abnormality. Cholelithiasis. Electronically Signed: Marcos Busby MD at 9:37 EST Tel , Service support , Lumbar Spine MRI 05/07/20 08:00 IMPRESSION: 1. Right L2 supra pedicular foraminal zone disc extrusion at L1-L2 disc level (series 2, image 11; series 5, images 21-22) but unchanged when compared to 01/30/2020. 2. Pronounced central canal stenosis at L2-L3 disc space level with an AP canal diameter of 5.2 mm, mild degenerative retrolisthesis of L2 on L3 and small posterior midline disc protrusion are unchanged. 3. Moderately pronounced central canal stenosis at L3-L4 disc space level with an AP canal diameter of 6 mm. This level is unchanged. 4. Pronounced central canal stenosis at L4-L5 disc space level with an AP canal diameter of 4 mm, moderately pronounced stenosis of the right intervertebral neural foramen, moderate stenosis of the left intervertebral neural foramen and pronounced bilateral degenerative facet hypertrophy. This level is unchanged. 5. Pronounced right L5-S1 degenerative facet arthropathy, moderate left L5-S1 degenerative facet arthropathy, disc implant with pedicular screws causing signal distortion of the moderate stenosis of the intervertebral neural foramina. This level is unchanged. 6. No abnormal enhancing lesions intradurally and extradurally. Electronically Signed: Dejan Sanchez MD at 11:16 EST , Service support , Current Medications Acetaminophen (Acetaminophen 500 Mg Tablet) 1,000 mg PO TID [facility] Last Admin: 05/07/20 14:10 Dose: 1,000 mg Documented by: Al Hydroxide/Mg Hydroxide (Mag Hydrox/Al Hydrox/Simeth 30 Ml Udc) 30 ml PO Q6H PRN PRN PRN Reason: Gastric Burning Cyclobenzaprine HCl (Cyclobenzaprine Hcl 10 Mg Tablet) 10 mg PO TID PRN PRN PRN Reason: back pain Last Admin: 05/07/20 14:09 Dose: 10 mg Documented by: Enoxaparin Sodium (Enoxaparin 40 Mg/0.4 Ml Syringe) 40 mg SC BID [facility] Last Admin: 05/07/20 10:23 Dose: 40 mg Documented by: Furosemide (Furosemide 40 Mg Tablet) 40 mg PO DAILY [facility] Last Admin: 05/07/20 10:23 Dose: 40 mg Documented by: Latanoprost (Latanoprost 0.005% 1 Bottle) 1 drop OPHTHALMIC DAILY [facility] Last Admin: 05/07/20 10:28 Dose: 1 drop Documented by: Lisinopril (Lisinopril 20 Mg Tablet) 20 mg PO DAILY [facility] Last Admin: 05/07/20 10:23 Dose: 20 mg Documented by: Magnesium Hydroxide (Magnesium Hydroxide 30 Ml Udc) 30 ml PO DAILY PRN PRN PRN Reason: Constipation Meloxicam (Meloxicam 15 Mg Tablet) 15 mg PO DAILY [facility] Last Admin: 05/07/20 10:23 Dose: 15 mg Documented by: Metoprolol Tartrate (Metoprolol Tartrate 50 Mg Tablet) 50 mg PO BID [facility] Last Admin: 05/07/20 10:23 Dose: 50 mg Documented by: Morphine Sulfate (Morphine 4 Mg/Ml Syringe) 4 mg IV Q3H PRN PRN PRN Reason: Pain Score 6-10 Last Admin: 05/07/20 13:06 Dose: 4 mg Documented by: Ondansetron HCl (Ondansetron 4 Mg/2 Ml Vial) 4 mg IV Q8H PRN PRN PRN Reason: NAUSEA/VOMITING Oxycodone HCl (Oxycodone 5 Mg Tablet) 10 mg PO Q4H PRN PRN PRN Reason: Pain Score 4-5 Last Admin: 05/07/20 10:28 Dose: 10 mg Documented by: Psyllium Hydrophilic Mucilloid (Psyllium 1 Packet) 1 packet PO DAILY PRN PRN PRN Reason: Constipation Senna/Docusate Sodium (Senna/Docusate Sodium 1 Tablet) 2 tablet PO BID PRN PRN PRN Reason: Constipation Sodium Chloride (0.9% Saline Lock 10 Ml Syringe) 10 - 40 ml IV UD PRN PRN Reason: SALINE FLUSH Last Admin: 05/07/20 13:06 Dose: 10 ml Documented by: STROKE Vital Signs/Narrative: Vital Signs Temp Pulse Resp BP Pulse Ox 05/07/20 14:06 97.5 F L 64 16 112/60 95 Medical Necessity - Tobacco Use Smoking Status: Never smoker Tobacco Use: Non-smoker Assessment/Plan All Active Problems (Last Reviewed 04/25/20 @ 15:[address] Terell Shore MD) Lumbar stenosis without neurogenic claudication (Acute) Dyspnea (Acute) COVID-19 virus detected (Resolved 02/17/20) Chest pain (Resolved) Chest pain, unspecified (Resolved) Chest tightness (Resolved) Diffuse otitis externa, left ear (Resolved) Dysfunction of both eustachian tubes (Resolved) Stroke (Ruled-out) #Intractable back pain * Had discectomy with interbody fusion and transpedicular fixation at the L5-S1 levels with worsening degenerative disease at L4-L5. * On Flexeril, Tylenol and oxycodone as well as morphine as needed. * Spine surgery on board and recommends bilateral L4-5 transforaminal epidural steroid injection. * PT OT on board. Fall precautions. * #Hypertension: On lisinopril and metoprolol #Paroxysmal A. fib: On metoprolol. Xarelto on hold for back injection. #BORIS: On CPAP. #Super morbid obesity: BMI 35.9. Complicates acute care, prognosis and expected recovery. DVT prophylaxis: Lovenox 40 mg twice daily. OBSV E&M: 17066 Subsequent observation care L2
[2020-05-07] MEDS: Gabapentin 100 MG Capsule PO (17:52)
[2020-05-08] VITALS (12 sets, daily range): BP systolic 111–135; BP diastolic 63–82; PULSE 54–102; RESP 16–20; TEMP 36.1–36.7; O2SAT 94–99; BMI 56.0
[2020-05-08 05:55] LABS: Absolute Lymphocyte Count 2.01 X10^3/uL (0.83-4.51); Basophil# 0.04 X10^3/uL; Basophil% 0.4 % (0-1); Eosinophil# 0.19 X10^3/uL; Eosinophils% 1.9 % (0-5); Hematocrit 43.3 % (40-54); Lymphocyte # 2.01 X10^3/ul (4.0); Lymphocyte % 19.9 % (19-41); Mean Corp Hgb Conc 32.3 g/dL (32-36); Mean Corpuscular Hgb 31.7 pg (27.0-32.0); Mean Platelet Vol. 9.8 fl (6.2-12.0); Monocyte% 7.9 % (0-10); NRBC Flagged by Analyzer 0 % (0-5); Neutrophil % 69.3 % (47-70); Platelet Count 141 K/mm3 (150-450); RBC Distribution Width CV 13.7 % (11.6-14.6); RBC Distribution Width SD 50.1 fl (35.1-43.9); Red Blood Count 4.42 M/mm3 (4.6-6.2); White Blood Count 10.1 K/mm3 (4.4-11.0)
--- NOTE | 2020-05-08 06:00 | EKG12_ITS ---
Test Reason : PRE-OP Blood Pressure : / mmHG Vent. Rate : 063 BPM Atrial Rate : 357 BPM P-R Int : 000 ms QRS Dur : 080 ms QT Int : 400 ms P-R-T Axes : 000 -12 269 degrees QTc Int : 409 ms Atrial fibrillation Low voltage QRS Nonspecific T wave abnormality , possibly digitalis effect Abnormal ECG Confirmed by CINDY BUNN, ASHLEY ([id number]), assignment editor WINNIE LEAHY ([id number]) on 05/09/2020 11:24:13 AM Referred By: AMELIA Confirmed By:ASHLEY WHITE MD
[2020-05-08 06:22] LABS: Anion Gap 4 (5-15); BUN 32 mg/dL (7-18); BUN/Creat Ratio 29.6 RATIO (10-20); Calcium,Total 8.5 mg/dL (8.5-10.1); Chloride 104 mmol/L (98-107); Creatinine, Serum 1.08 mg/dL (0.70-1.30); EST Glomerular Filtration Rate 74 mL/min (>60); Est Glom Filt Rate - Afr Amer 89 mL/min (>60); Estimated Creatinine Clearance 89.38 ml/min; Glucose 105 mg/dL (74-106); Potassium 3.5 mmol/L (3.5-5.1); Sodium Level 139 mmol/L (136-145)
[2020-05-08] MEDS: 0.9% Saline Lock 10 ML Syringe IV (06:37)
[2020-05-08] MEDS: Morphine 4 MG/ML Syringe IV (06:37)
[2020-05-08] MEDS: Metoprolol Tartrate 50 MG Tablet PO ×2 (09:55→21:26)
[2020-05-08] MEDS: Latanoprost 0.005% 1 Bottle 1 DRP OPHTHALMIC (09:55)
--- NOTE | 2020-05-08 12:08 | PN_ITS ---
Patient Problems: Active and Suspected Problems (Last Reviewed 04/25/20 @ 15:[address] Terell Shore MD) Lumbar stenosis without neurogenic claudication (Acute) Subjective: Seen and examined. Pain is well controlled today. He has no complaints. Review of systems otherwise negative. He is due for an epidural lumbar spinal shot today. He has remained hemodynamically stable. Vitals/I&O's: Vital Signs Temp Pulse Resp BP Pulse Ox 98.1 F 90 20 H 133/70 H 96 05/08/20 11:30 05/08/20 11:30 05/08/20 11:30 05/08/20 11:30 05/08/20 11:30 Oxygen Delivery Method Room Air Weight: 472 lb 14.264 oz Body Mass Index (BMI) 56.0 Intake and Output for Last 24 Hours 05/06/20 05/07/20 05/08/20 23:59 23:59 23:59 Intake Total 250 / 250 800 / 800 0 / 0 Output Total 300 / 300 1475 / 1875 1050 / 1050 Balance -50 / -50 -675 / -1075 -1050 / -1050 General: Alert, Oriented x3, Cooperative, super morbid obesity HEENT: Atraumatic, PERRLA, EOMI, Normocephalic Oral: Moist Mucosa Neck: Supple, No JVD, Negative Carotid Bruits Lungs: Clear to auscultation, Normal air movement Cardiovascular: Regular rate, No murmurs Abdomen: Bowel Sounds Present, Soft, Non Tender Extremities: No edema, Capillary Refill Less than 3 Seconds Skin: No rashes, No breakdown Musculoskeletal: No Tenderness to Palpation of Joints or Extremities Lymphatic: No Cervical, Supraclavicular, or Inguinal Adenopathy Neurological: Cranial nerves II-XII grossly intact Psych/Mental Status: Normal Affect, Appropriate, Alert and oriented to time, place, person, mood and affect Laboratory Results 05/08/20 05:14: WBC 10.1, RBC 4.42 L, Hgb 14.0, Hct 43.3, MCV 98.0 H, MCH 31.7, MCHC 32.3, RDW Std Deviation 50.1 H, RDW Coeff of [place] 13.7, Plt Count 141 L, MPV 9.8, Immature Gran % (Auto) 0.600, Neut % (Auto) 69.3, Lymph % (Auto) 19.9, [place] % (Auto) 7.9, Eos % (Auto) 1.9, Baso % (Auto) 0.4, Absolute Neuts (auto) 7.0, Absolute Lymphs (auto) 2.01, Nucleated RBC % 0 05/08/20 05:14: Sodium 139, Potassium 3.5, Chloride 104, Carbon Dioxide 31.0, Anion Gap 4 L, BUN 32 H, Creatinine 1.08, Estim Creat Clear Calc 89.38, Est GFR (MDRD) Af Amer 89, Est GFR (MDRD) Non-Af 74, BUN/Creatinine Ratio 29.6 H, Glucose 105, Calcium 8.5 Current Medications Acetaminophen (Acetaminophen 500 Mg Tablet) 1,000 mg PO TID [facility] Last Admin: 05/08/20 06:34 Dose: Not Given Documented by: Al Hydroxide/Mg Hydroxide (Mag Hydrox/Al Hydrox/Simeth 30 Ml Udc) 30 ml PO Q6H PRN PRN PRN Reason: Gastric Burning Cyclobenzaprine HCl (Cyclobenzaprine Hcl 10 Mg Tablet) 10 mg PO TID PRN PRN PRN Reason: back pain Last Admin: 05/07/20 14:09 Dose: 10 mg Documented by: Enoxaparin Sodium (Enoxaparin 40 Mg/0.4 Ml Syringe) 40 mg SC BID [facility] Last Admin: 05/08/20 09:54 Dose: Not Given Documented by: Furosemide (Furosemide 40 Mg Tablet) 40 mg PO DAILY [facility] Last Admin: 05/08/20 09:53 Dose: Not Given Documented by: Gabapentin (Gabapentin 100 Mg Capsule) 100 mg PO TIDCM [facility] Last Admin: 05/08/20 09:50 Dose: Not Given Documented by: Latanoprost (Latanoprost 0.005% 1 Bottle) 1 drop OPHTHALMIC DAILY [facility] Last Admin: 05/08/20 09:55 Dose: 1 drop Documented by: Lisinopril (Lisinopril 20 Mg Tablet) 20 mg PO DAILY [facility] Last Admin: 05/08/20 09:54 Dose: Not Given Documented by: Magnesium Hydroxide (Magnesium Hydroxide 30 Ml Udc) 30 ml PO DAILY PRN PRN PRN Reason: Constipation Meloxicam (Meloxicam 15 Mg Tablet) 15 mg PO DAILY [facility] Last Admin: 05/08/20 09:54 Dose: Not Given Documented by: Metoprolol Tartrate (Metoprolol Tartrate 50 Mg Tablet) 50 mg PO BID [facility] Last Admin: 05/08/20 09:55 Dose: 50 mg Documented by: Morphine Sulfate (Morphine 4 Mg/Ml Syringe) 4 mg IV Q3H PRN PRN PRN Reason: Pain Score 6-10 Last Admin: 05/08/20 06:37 Dose: 4 mg Documented by: Ondansetron HCl (Ondansetron 4 Mg/2 Ml Vial) 4 mg IV Q8H PRN PRN PRN Reason: NAUSEA/VOMITING Oxycodone HCl (Oxycodone 5 Mg Tablet) 10 mg PO Q4H PRN PRN PRN Reason: Pain Score 4-5 Last Admin: 05/07/20 21:33 Dose: 10 mg Documented by: Psyllium Hydrophilic Mucilloid (Psyllium 1 Packet) 1 packet PO DAILY PRN PRN PRN Reason: Constipation Senna/Docusate Sodium (Senna/Docusate Sodium 1 Tablet) 2 tablet PO BID PRN PRN PRN Reason: Constipation Sodium Chloride (0.9% Saline Lock 10 Ml Syringe) 10 - 40 ml IV UD PRN PRN Reason: SALINE FLUSH Last Admin: 05/08/20 06:37 Dose: 10 ml Documented by: STROKE Vital Signs/Narrative: Vital Signs Temp Pulse Resp BP Pulse Ox 05/08/20 11:30 98.1 F 90 20 H 133/70 H 96 05/08/20 09:55 60 Medical Necessity - Tobacco Use Smoking Status: Never smoker Tobacco Use: Non-smoker Assessment/Plan All Active Problems (Last Reviewed 04/25/20 @ 15:[address] Terell Shore MD) Lumbar stenosis without neurogenic claudication (Acute) Dyspnea (Acute) COVID-19 virus detected (Resolved 02/17/20) Chest pain (Resolved) Chest pain, unspecified (Resolved) Chest tightness (Resolved) Diffuse otitis externa, left ear (Resolved) Dysfunction of both eustachian tubes (Resolved) Stroke (Ruled-out) #Intractable back pain * Had discectomy with interbody fusion and transpedicular fixation at the L5-S1 levels with worsening degenerative disease at L4-L5. * On Flexeril, Tylenol and oxycodone as well as morphine as needed. * Spine surgery on board and recommends bilateral L4-5 transforaminal epidural steroid injection. to have injection done today * PT OT on board. Fall precautions. * #Hypertension: On lisinopril and metoprolol #Paroxysmal A. fib: On metoprolol. Xarelto on hold for back injection. #BORIS: On CPAP. #Super morbid obesity: BMI 35.9. Complicates acute care, prognosis and expected recovery. DVT prophylaxis: Lovenox 40 mg twice daily. OBSV E&M: [id number] Subsequent observation care L2
--- NOTE | 2020-05-08 14:10 | RAD_ITS ---
STUDY: X-RAY - LUMBAR SPINE REASON FOR EXAM: Male, 64 years old. Bilateral transforaminal steroid injection. TECHNIQUE: Digital fluoroscopic spot radiograph of the lower lumbar spine was obtained. COMPARISON: None FINDINGS: Intraoperative fluoroscopic Spot digital radiograph showing 2 radiopaque needles in the region of the bilateral upper L4-L5 facet joints. Pedicular screws and rods and disc implants with radiopaque markers at L5-S1 disc level. RAD/Lumbar Spine 2 or 3 Views IMPRESSION: Single intraoperative digital fluoroscopic spot radiograph showing radiopaque needles in the region of the bilateral upper L4-L5 facet joints. Fluoroscopy time was not provided. Electronically Signed: Dejan Sanchez MD at 15:51 EST , Service support ,
[2020-05-08] MEDS: Triamcinolone Acetonide 40 MG/ML Vial ×2 (14:17→14:22)
[2020-05-08] MEDS: Bupivacaine 0.25% 30 ML Vial (14:17)
[2020-05-08] MEDS: Lidocaine 1% (30 ml sdv) 30 ML Vial (14:17)
[2020-05-08] MEDS: Sodium Bicarbonate 50 MEQ/50 ML Vial (14:17)
--- NOTE | 2020-05-08 14:24 | OP.PCM_ITS ---
Problem List (1) Lumbar stenosis without neurogenic claudication Status: Acute Report of Operation Date of Procedure: 05/08/20 Pre-Operative Diagnosis: Lumbar stenosis without neurogenic claudication Post-Operative Diagnosis: Lumbar stenosis without neurogenic claudication Surgery/Procedure Performed:: Bilateral lumbar 4-5 transforaminal epidural steroid injection Description of Surgical Findings:: The patient was seen in the preop holding area. Risks and benefits of the procedure were explained to the patient informed consent was obtained. The patient was transported to the procedure room, given the appropriate amount of anesthesia, and transferred to the prone position on the fluoroscopy table. The back was prepped and draped in the usual sterile fashion. Sterile technique was used throughout. Under fluoroscopic guidance the appropriate starting point was marked on the skin. The corresponding skin and subcutaneous tissue needle entry sites were anesthetized with a 27-gauge 1.5 inch needle using 1% lidocaine, 5 mL per level. Subsequently a 22-gauge 8 inch spinal needle with a curved tip was advanced via a subpedicular approach to enter the neuroforamen at bilateral L4- 5. Omnipaque was injected, positive epidural spread was noted. No intravascular or intrathecal uptake was noted. After negative aspiration, bupivacaine 0.25% 1 mL +1 mL of Kenalog 40 mg/mL for a total volume of 2 mL was injected in 1 mL aliquots at each level. The needles were removed. No complications were noted. The patient was transported to the recovery room in stable condition. Type of Anesthesia:: MAC Estimated Blood Loss (mL): None - Complications None - Admit VTE Documentation VTE Present on Admission: No
[2020-05-08] MEDS: Acetaminophen 500 MG Tablet 1000 MG PO ×2 (15:44→21:26)
[2020-05-08] MEDS: Gabapentin 100 MG Capsule PO (15:45)
[2020-05-08] MEDS: Furosemide 40 MG Tablet PO (17:48)
[2020-05-08] MEDS: Lisinopril 20 MG Tablet PO (17:48)
[2020-05-08] MEDS: Meloxicam 15 MG Tablet PO (17:49)
[2020-05-08] MEDS: Enoxaparin 40 MG/0.4 ML Syringe SC (21:27)
[2020-05-09 03:47] VITALS: BP 145/86; PULSE 63; RESP 18; TEMP 36.9; O2SAT 96
[2020-05-09] MEDS: Acetaminophen 500 MG Tablet 1000 MG PO ×2 (06:07→13:08)
[2020-05-09 06:31] LABS: Absolute Lymphocyte Count 0.99 X10^3/uL (0.83-4.51); Absolute Neutrophil Count 7.1 X10^3/uL (2.0-7.7); Basophil# 0.01 X10^3/uL; Basophil% 0.1 % (0-1); Hematocrit 46.4 % (40-54); Hemoglobin 15.1 g/dL (13.0-16.5); Lymphocyte # 0.99 X10^3/ul (4.0); Lymphocyte % 11.6 % (19-41); Mean Corp Hgb Conc 32.5 g/dL (32-36); Mean Corpuscular Hgb 31.5 pg (27.0-32.0); Mean Corpuscular Volume 96.9 fL (80-94); Mean Platelet Vol. 9.8 fl (6.2-12.0); Monocyte# 0.41 X10^3/uL; Monocyte% 4.8 % (0-10); NRBC Flagged by Analyzer 0 % (0-5); Neutrophil # 7.07 X10^3/uL (2.7-7.7); Platelet Count 141 K/mm3 (150-450); RBC Distribution Width CV 13.1 % (11.6-14.6); RBC Distribution Width SD 46.8 fl (35.1-43.9); Red Blood Count 4.79 M/mm3 (4.6-6.2); White Blood Count 8.5 K/mm3 (4.4-11.0)
[2020-05-09 07:20] LABS: Anion Gap 9 (5-15); BUN 24 mg/dL (7-18); BUN/Creat Ratio 27.9 RATIO (10-20); Calcium,Total 8.3 mg/dL (8.5-10.1); Chloride 106 mmol/L (98-107); Creatinine, Serum 0.86 mg/dL (0.70-1.30); EST Glomerular Filtration Rate 96 mL/min (>60); Est Glom Filt Rate - Afr Amer 116 mL/min (>60); Estimated Creatinine Clearance 112.24 ml/min; Glucose 126 mg/dL (74-106); Potassium 4.9 mmol/L (3.5-5.1); Sodium Level 137 mmol/L (136-145)
[2020-05-09 09:13] VITALS: BP 142/79; PULSE 83; RESP 18; TEMP 36.3; O2SAT 97
[2020-05-09] MEDS: Enoxaparin 40 MG/0.4 ML Syringe SC (09:19)
[2020-05-09] MEDS: Furosemide 40 MG Tablet PO (09:20)
[2020-05-09 09:21] VITALS: BP 142/79; PULSE 83
[2020-05-09] MEDS: Meloxicam 15 MG Tablet PO (09:21)
[2020-05-09] MEDS: Gabapentin 100 MG Capsule PO ×3 (09:21→17:19)
[2020-05-09] MEDS: Lisinopril 20 MG Tablet PO (09:21)
[2020-05-09] MEDS: Metoprolol Tartrate 50 MG Tablet PO (09:21)
[2020-05-09] MEDS: Latanoprost 0.005% 1 Bottle 1 DRP OPHTHALMIC (09:21)
[2020-05-09] MEDS: oxyCODONE 5 MG Tablet 10 MG PO ×2 (09:29→13:48)
--- NOTE | 2020-05-09 13:02 | DCINST_ITS ---
- Discharge Diagnoses Current Active Problems: Current Active and Chronic Problems (Last Reviewed 04/25/20 @ 15:[address] Terell Shore MD) Lumbar stenosis without neurogenic claudication (Acute) Paroxysmal atrial fibrillation (Chronic) Chronic diastolic (congestive) heart failure (Chronic) Bilateral pulmonary embolism (Chronic 05/02/18) Essential (primary) hypertension (Chronic) Hyperlipidemia (Chronic) You will use the following diet at home:: Cardiac Your food should be the consistency of: Regular Your liquids should be the consistency of: Regular/Thin Discharge Activity: Return to Normal Activity Weight Bearing Status: Weight bearing as tolerated Call your doctor if you observe: Fever of 101 or Higher, Shortness of breath, Dizziness, Fainting spells, Swelling in the ankles, Uncontrolled pain Instructions: Relieving Back Pain, How Your Back Works, Self-Care for Low Back Pain Allergies/Adverse Reactions: Allergies Penicillins Allergy (Verified 05/06/20 07:54) Anaphylaxis Sulfa (Sulfonamide Antibiotics) Allergy (Verified 05/06/20 07:54) Hives Medications to take at Discharge furosemide 40 mg tablet 40 mg PO DAILY #90 tab 07/29/19 metoprolol tartrate 50 mg tablet 50 mg PO BID #180 tab 07/29/19 Lisinopril 20 mg PO DAILY 03/10/20 latanoprost 0.005 % eye drops 1 drp OPHTHALMIC DAILY ml 04/25/20 meloxicam 15 mg tablet 15 mg PO DAILY tab 04/25/20 Rivaroxaban [Xarelto] 20 mg PO DINNER 05/06/20 cycloBENZAPRine HCl [Flexeril] 10 mg PO BID PRN PRN 05/06/20 Primary Care Physician: Tiarra Bravo MD [Primary Care Provider] - Please follow up with your Primary Care Physician in: 1-2 weeks Test Results: Test results from this visit will be discussed in further detail at your follow- up appointment, if applicable. Proposed Discharge Date: 05/09/20
--- NOTE | 2020-05-09 13:03 | PCM.DC.SUM ---
Discharge Date and Diagnosis - Problem List Patient Problems: Active and Suspected Problems (Last Reviewed 04/25/20 @ 15:[address] Terell Shore MD) Lumbar stenosis without neurogenic claudication (Acute) Date of Admission: 05/06/20 Date of Discharge: 05/09/20 - Primary Discharge Diagnosis Acute Problems: Active Problems (Last Reviewed 04/25/20 @ 15:[address] Terell Shore MD) Lumbar stenosis without neurogenic claudication (Acute) intractable back pain - Secondary Discharge Diagnosis Chronic Problems: Chronic Problems (Last Reviewed 04/25/20 @ 15:[address] Terell Shore MD) Paroxysmal atrial fibrillation (Chronic) Chronic diastolic (congestive) heart failure (Chronic) Bilateral pulmonary embolism (Chronic 05/02/18) Essential (primary) hypertension (Chronic) Hyperlipidemia (Chronic) Central sleep apnea associated with atrial fibrillation (Chronic) Hospital Course and Treatment Imaging Results: Diagnostic Data Abdomen/Pelvis CT 05/06/20 07:56 IMPRESSION: No acute abnormality. Cholelithiasis. Electronically Signed: Marcos Busby MD at 9:37 EST Tel , Service support , Lumbar Spine MRI 05/07/20 08:00 IMPRESSION: 1. Right L2 supra pedicular foraminal zone disc extrusion at L1-L2 disc level (series 2, image 11; series 5, images 21-22) but unchanged when compared to 01/30/2020. 2. Pronounced central canal stenosis at L2-L3 disc space level with an AP canal diameter of 5.2 mm, mild degenerative retrolisthesis of L2 on L3 and small posterior midline disc protrusion are unchanged. 3. Moderately pronounced central canal stenosis at L3-L4 disc space level with an AP canal diameter of 6 mm. This level is unchanged. 4. Pronounced central canal stenosis at L4-L5 disc space level with an AP canal diameter of 4 mm, moderately pronounced stenosis of the right intervertebral neural foramen, moderate stenosis of the left intervertebral neural foramen and pronounced bilateral degenerative facet hypertrophy. This level is unchanged. 5. Pronounced right L5-S1 degenerative facet arthropathy, moderate left L5-S1 degenerative facet arthropathy, disc implant with pedicular screws causing signal distortion of the moderate stenosis of the intervertebral neural foramina. This level is unchanged. 6. No abnormal enhancing lesions intradurally and extradurally. Electronically Signed: Dejan Sanchez MD at 11:16 EST , Service support , Lumbar Spine X-Ray 05/08/20 14:10 IMPRESSION: Single intraoperative digital fluoroscopic spot radiograph showing radiopaque needles in the region of the bilateral upper L4-L5 facet joints. Fluoroscopy time was not provided. Electronically Signed: Dejan Sanchez MD at 15:51 EST , Service support , spine surgery- Dr Landaverde Operations: None Procedures: None Summary of Care Provided: The patient is a 64 year old M with a past medical history as outlined was admitted through the ED on 05/06/2020 with a complaint of back pain for 2 weeks prior to admission. He denied any fall or trauma and the pain radiated down his left leg. It was relieved by Tylenol and Flexeril. CT of the abdomen and pelvis showed cholelithiasis but no other abnormality. He had had a history of discectomy with interbody fusion and transpedicular fixation at L5-S1 as well as worsening degenerative disc disease at L4-L5. He was admitted and managed for acute on chronic intractable low back pain. Spine surgery was consulted and PT OT was consulted. He had bilateral lumbar L4-L5 transforaminal epidural steroid injection on 05/08/2020. He tolerated procedure well and pain control improved. He remained stable and was discharged on 05/09/2020. He is to follow-up with his primary care doctor and spine surgeon within 1 to 2 weeks. Patient seen and examined prior to discharge. He had no complaints. Review of systems otherwise negative. Labs and vitals reviewed. Home medication reviewed and reconciled. O/E: Vital Signs Temp Pulse Resp BP Pulse Ox 97.3 F L 83 18 142/79 H 97 05/09/20 09:13 05/09/20 09:21 05/09/20 09:13 05/09/20 09:21 05/09/20 09:13 [] General: Alert, Oriented x3, Cooperative, super morbid obesity HEENT: Atraumatic, PERRLA, EOMI, Normocephalic Oral: Moist Mucosa Neck: Supple, No JVD, Negative Carotid Bruits Lungs: Clear to auscultation, Normal air movement Cardiovascular: Regular rate, No murmurs Abdomen: Bowel Sounds Present, Soft, Non Tender Extremities: No edema, Capillary Refill Less than 3 Seconds Skin: No rashes, No breakdown Musculoskeletal: No Tenderness to Palpation of Joints or Extremities Lymphatic: No Cervical, Supraclavicular, or Inguinal Adenopathy Neurological: Cranial nerves II-XII grossly intact Psych/Mental Status: Normal Affect, Appropriate, Alert and oriented to time, place, person, mood and affect Plan is for discharge home today. Patient Problems: Active and Suspected Problems (Last Reviewed 04/25/20 @ 15:[address] Terell Shore MD) Lumbar stenosis without neurogenic claudication (Acute) - Physical Exam Vitals/I&O's: Vital Signs Temp Pulse Resp BP Pulse Ox 97.3 F L 83 18 142/79 H 97 05/09/20 09:13 05/09/20 09:21 05/09/20 09:13 05/09/20 09:21 05/09/20 09:13 Oxygen Delivery Method Room Air Weight: 466 lb 15.025 oz Body Mass Index (BMI) 56.0 Intake and Output for Last 24 Hours 05/07/20 05/08/20 05/09/20 23:59 23:59 23:59 Intake Total 800 / 800 400 / 400 800 / 800 Output Total 1475 / 1875 2675 / 2675 2024 Balance -675 / -1075 -2275 / -2275 -1225 / -1225 Laboratory Results 05/09/20 06:05: WBC 8.5, RBC 4.79, Hgb 15.1, Hct 46.4, MCV 96.9 H, MCH 31.5, MCHC 32.5, RDW Std Deviation 46.8 H, RDW Coeff of Mariana 13.1, Plt Count 141 L, MPV 9.8, Immature Gran % (Auto) 0.500, Neut % (Auto) 83.0 H, Lymph % (Auto) 11.6 L, Beaver % (Auto) 4.8, Eos % (Auto) 0.0, Baso % (Auto) 0.1, Absolute Neuts (auto) 7.1, Absolute Lymphs (auto) 0.99, Nucleated RBC % 0 05/09/20 06:05: Sodium 137, Potassium 4.9, Chloride 106, Carbon Dioxide 22.0, Anion Gap 9, BUN 24 H, Creatinine 0.86, Estim Creat Clear Calc 112.24, Est GFR (MDRD) Af Amer 116, Est GFR (MDRD) Non-Af 96, BUN/Creatinine Ratio 27.9 H, Glucose 126 H, Calcium 8.3 L Current Medications Acetaminophen (Acetaminophen 500 Mg Tablet) 1,000 mg PO TID [facility] Last Admin: 05/09/20 06:07 Dose: 1,000 mg Documented by: Al Hydroxide/Mg Hydroxide (Mag Hydrox/Al Hydrox/Simeth 30 Ml Udc) 30 ml PO Q6H PRN PRN PRN Reason: Gastric Burning Cyclobenzaprine HCl (Cyclobenzaprine Hcl 10 Mg Tablet) 10 mg PO TID PRN PRN PRN Reason: back pain Last Admin: 05/07/20 14:09 Dose: 10 mg Documented by: Enoxaparin Sodium (Enoxaparin 40 Mg/0.4 Ml Syringe) 40 mg SC BID [facility] Last Admin: 05/09/20 09:19 Dose: 40 mg Documented by: Furosemide (Furosemide 40 Mg Tablet) 40 mg PO DAILY [facility] Last Admin: 05/09/20 09:20 Dose: 40 mg Documented by: Gabapentin (Gabapentin 100 Mg Capsule) 100 mg PO TIDCM [facility] Last Admin: 05/09/20 09:21 Dose: 100 mg Documented by: Latanoprost (Latanoprost 0.005% 1 Bottle) 1 drop OPHTHALMIC DAILY [facility] Last Admin: 05/09/20 09:21 Dose: 1 drop Documented by: Lisinopril (Lisinopril 20 Mg Tablet) 20 mg PO DAILY [facility] Last Admin: 05/09/20 09:21 Dose: 20 mg Documented by: Magnesium Hydroxide (Magnesium Hydroxide 30 Ml Udc) 30 ml PO DAILY PRN PRN PRN Reason: Constipation Meloxicam (Meloxicam 15 Mg Tablet) 15 mg PO DAILY [facility] Last Admin: 05/09/20 09:21 Dose: 15 mg Documented by: Metoprolol Tartrate (Metoprolol Tartrate 50 Mg Tablet) 50 mg PO BID [facility] Last Admin: 05/09/20 09:21 Dose: 50 mg Documented by: Morphine Sulfate (Morphine 4 Mg/Ml Syringe) 4 mg IV Q3H PRN PRN PRN Reason: Pain Score 6-10 Last Admin: 05/08/20 06:37 Dose: 4 mg Documented by: Ondansetron HCl (Ondansetron 4 Mg/2 Ml Vial) 4 mg IV Q8H PRN PRN PRN Reason: NAUSEA/VOMITING Oxycodone HCl (Oxycodone 5 Mg Tablet) 10 mg PO Q4H PRN PRN PRN Reason: Pain Score 4-5 Last Admin: 05/09/20 09:29 Dose: 10 mg Documented by: Psyllium Hydrophilic Mucilloid (Psyllium 1 Packet) 1 packet PO DAILY PRN PRN PRN Reason: Constipation Senna/Docusate Sodium (Senna/Docusate Sodium 1 Tablet) 2 tablet PO BID PRN PRN PRN Reason: Constipation Sodium Chloride (0.9% Saline Lock 10 Ml Syringe) 10 - 40 ml IV UD PRN PRN Reason: SALINE FLUSH Last Admin: 05/08/20 06:37 Dose: 10 ml Documented by: Discharge Diet: Low fat/ Low Cholesterol Discharge Activity: Return to Normal Activity Weight Bearing Status: Weight bearing as tolerated Call your doctor if you observe: Fever of 101 or Higher, Shortness of breath, Dizziness, Fainting spells, Swelling in the ankles, Uncontrolled pain Home Medications: Medications to take at Discharge furosemide 40 mg tablet 40 mg PO DAILY #90 tab 07/29/19 metoprolol tartrate 50 mg tablet 50 mg PO BID #180 tab 07/29/19 Lisinopril 20 mg PO DAILY 03/10/20 latanoprost 0.005 % eye drops 1 drp OPHTHALMIC DAILY ml 04/25/20 meloxicam 15 mg tablet 15 mg PO DAILY tab 04/25/20 Rivaroxaban [Xarelto] 20 mg PO DINNER 05/06/20 cycloBENZAPRine HCl [Flexeril] 10 mg PO BID PRN PRN 05/06/20 Primary Care Physician: Tiarra Bravo MD [Primary Care Provider] - Please follow up with your Primary Care Physician in: 1-2 weeks Patient Instructions: How Your Back Works, Relieving Back Pain, Self-Care for Low Back Pain Disposition: Home Minutes spent on discharge:: 40 Patient Condition:: Stable Medical Necessity - Tobacco Use Smoking Status: Never smoker Tobacco Use: Non-smoker Meaningful Use Info Meaningful Use Diagnoses (Choose all that apply): None applicable Inpatient E&M: 20644 Disch Hosp
--- NOTE | 2020-05-09 13:39 | PHA.DC.MR ---
Pharmacy Service has performed discharge medication reconciliation for this patient. The patient's discharge medication list was reviewed for discrepancies and discrepancies were resolved. Home Medications furosemide 40 mg tablet 40 mg PO DAILY #90 tab 07/29/19 metoprolol tartrate 50 mg tablet 50 mg PO BID #180 tab 07/29/19 Lisinopril 20 mg PO DAILY 03/10/20 latanoprost 0.005 % eye drops 1 drp OPHTHALMIC DAILY ml 04/25/20 meloxicam 15 mg tablet 15 mg PO DAILY tab 04/25/20 Rivaroxaban [Xarelto] 20 mg PO DINNER 05/06/20 cycloBENZAPRine HCl [Flexeril] 10 mg PO BID PRN PRN 05/06/20
[2020-05-09 15:30] VITALS: BP 126/77; PULSE 63; RESP 18; TEMP 36.8; O2SAT 99
== END 2020-05-09 18:21 | disposition home or self-care (01) ==
LOC: ED 08:35 → MS3 11:04
PROVIDERS: Orthopaedic Surgery; Admitting Provider Internal Medicine; Emergency Provider Student in an Organized Health Care Education/Training Program; PCP Family Medicine; Visit Provider Student in an Organized Health Care Education/Training Program
PROC: 3E0S3BZ Introduction of Anesthetic Agent into Epidural Space, Percutaneous Approach (ICD-10-PCS; CPT 64483; principal; 2020-05-08 12:55)
DX: M48.061 Spinal stenosis, lumbar region without neurogenic claudication (principal); M47.816 Spondylosis without myelopathy or radiculopathy, lumbar region; M51.26 Other intervertebral disc displacement, lumbar region; M43.16 Spondylolisthesis, lumbar region; M51.37 Other intervertebral disc degeneration, lumbosacral region; I48.0 Paroxysmal atrial fibrillation; I50.32 Chronic diastolic (congestive) heart failure; I11.0 Hypertensive heart disease with heart failure; E78.5 Hyperlipidemia, unspecified; G47.37 Central sleep apnea in conditions classified elsewhere; I48.92 Unspecified atrial flutter; I44.0 Atrioventricular block, first degree; E66.01 Morbid (severe) obesity due to excess calories; Z68.43 Body mass index [BMI] 50.0-59.9, adult; G89.29 Other chronic pain; Z86.711 Personal history of pulmonary embolism; Z79.899 Other long term (current) drug therapy; Z79.01 Long term (current) use of anticoagulants
CPT/HCPCS: 64483; 36415; 72100; 72158; 74177; 80048; 80053; 80076; 85025; 93005; 96372; 96374; 96375; 96376; 97162; 97166; 97802; 99218; 99251; 99285; A9575; Q9967; A4216; G0378; G0463; J2405

== ENCOUNTER 2020-06-01 10:19 | Day surgery (SDC) | payer BC, SELFPAY ==
[2020-04-25 09:08] VITALS: BMI 54.3
[2020-05-08 11:30] VITALS: BMI 56.0
[2020-05-25 14:58] LABS: Anion Gap 7 (5-15); BUN 18 mg/dL (7-18); Calcium,Total 9.1 mg/dL (8.5-10.1); Chloride 101 mmol/L (98-107); EST Glomerular Filtration Rate 80 mL/min (>60); Est Glom Filt Rate - Afr Amer 97 mL/min (>60); Glucose 124 mg/dL (74-106); Potassium 4.1 mmol/L (3.5-5.1); Sodium Level 138 mmol/L (136-145)
[2020-06-01 07:21] VITALS: BMI 54.3
--- NOTE | 2020-06-01 11:16 | HP.PCM_ITS ---
History and Physical Date of Admission: 06/01/20 This is a 64-year-old gentleman that presents here today for a cardioversion. He was in our office in Apr 2020 and was doing well. He then had a colonoscopy done at the end of April and was noted to be in atrial fibrillation. In April 2018 he presented to the hospital with shortness of breath and an irregular heartbeat. He was noted to be in atrial fibrillation with a rapid ventricular response rate and also demonstrated bilateral pulmonary emboli from a CT scan. He was hospitalized and treated with anticoagulation and also diuresed since his natriuretic peptide was elevated. An echocardiogram was performed demonstrating an ejection fraction approximately 53%. He was also noted to be hypertensive and treated for that. He underwent a cardioversion on 07/13/2018. He also has a history of hypertension, hyperlipidemia, CVA, and BORIS. [facility] for chest pain. He was noted to have a 9 beat run of wide-complex tachycardia. He underwent echocardiogram on 11/15/2019 that showed ejection fraction 55% and mild concentric LVH. He underwent a heart catheterization on 11/16/2019 showed showed ejection fraction of 60% and normal coronary arteries. His lisinopril was increased to 20 mg p.o. daily to assist with hypertension. He did unfortunately sustain COVID-19 in January 2020 and presently did well. He has had some shortness of breath but otherwise doing okay. Recent BT [employer] was noted to be 150. Intake Intake Visit Reasons: Amb Documentation Allergies Penicillins Allergy (Verified 05/06/20 07:54) Anaphylaxis Sulfa (Sulfonamide Antibiotics) Allergy (Verified 05/06/20 07:54) Hives [facility] Medical History (Updated 05/07/20 @ 12:[address] Mark Landaverde, DO) COVID-19 virus detected (Resolved 02/17/20) Paroxysmal atrial fibrillation (Chronic) Chronic diastolic (congestive) heart failure (Chronic) Bilateral pulmonary embolism (Chronic 05/02/18) Essential (primary) hypertension (Chronic) Hyperlipidemia (Chronic) Central sleep apnea associated with atrial fibrillation (Chronic) Central sleep apnea (Chronic) Obesity (Chronic) Back pain (Resolved) Chest pain (Resolved) Diffuse otitis externa, left ear (Resolved) Dysfunction of both eustachian tubes (Resolved) Fatigue (Resolved) Knee pain (Resolved) SOB (shortness of breath) (Resolved) Severe headache (Resolved) Paroxysmal atrial fibrillation with rapid ventricular response (Inactive 05/02/18) Persistent atrial fibrillation (Inactive) Surgical History (Updated 05/06/20 @ 07:[address] Eric Cline, DO) History of tonsillectomy and adenoidectomy (Suspected) History of back surgery (Resolved) History of cardioversion (Resolved 07/13/18) History of knee surgery (Resolved) History of left heart catheterization (Resolved 11/16/19) History of total right knee replacement (Resolved) Family History Father Cancer glioblastoma Social History (Updated 04/25/20 @ 15:[address] Terell Shore MD) Smoking Status: Never smoker alcohol intake: never ROS Const Const: Negative for fatigue, weakness, headache(s), frequent falls, difficulty sleeping or excessive sweating Eyes Eyes: Negative for loss of peripheral vision, transient loss of vision, blurry vision, double vision or tunnel vision ENT ENT: Negative for headache(s), dizziness, Nosebleed/epistaxis or balance problems Cardio Chest Pain: No Palpitations: No Edema: Bilateral (chronic BLE edema), None Muscle aches with walking: None Resp Respiratory: Positive for SOB with activity; negative for SOB at rest, SOB orthopnea\SOB lying down, Cough or paroxysmal nocturnal dyspnea GI GI: Negative nausea, vomiting, heartburn or black,tarry stools : Negative for hematuria Musc Musc: Negative for muscle aches/ myalgia, muscle weakness, joint pain or balance problems Skin Skin: Negative non-healing lesions, rash or unusual bruising Neuro Neuro: Negative for dizziness, lightheadedness, near syncope, syncope, orthostatic symptoms, frequent falls, headache(s), weakness, blurry vision, double vision or lack of coordination Mauricio Hematologic/Lymphatic: Negative for easy bleeding or easy bruising Endo Endo: Negative for fatigue, excessive sweating or increased thirst/drinking Psych Psych: Negative for anxiety or depression Allergy Allergy/Immunology: Negative for hives, Negative for rash Cardiology Exam Const Appearance: cooperative, healthy appearing, no acute distress, well developed and well groomed Nutritional Appearance: average body habitus and well nourished Orientation: alert, awake and oriented x3 Head Head: normal to inspection, normocephalic and atraumatic Ears: hearing grossly normal bilaterally and external ears normal Nose: external nose normal, nares normal, nasal mucous membranes and turbinates normal, septum normal, no nasal discharge Face and Sinus: face symmetric Mouth: oral mucosae normal, tongue normal, oropharynx normal and moist mucous membranes Teeth and gingiva: dentition normal Throat: posterior oropharynx normal, tonsils normal and uvula midline Eyes General: appearance normal, both eyes and all related structures Eyelids: eyelids normal Conjunctivae: conjunctivae normal Pupils: PERRL, normal by confrontation and accommodation normal EOM: EOM intact bilaterally Neck Neck: normal visual inspection, trachea midline and no JVD JVD: +5 Carotids: normal carotid upstroke and bounding pulses Chest Chest inspection: normal inspection of the chest, symmetric chest movement and normal respiratory effort Auscultation: Bilateral: Clear to Auscultation Cardio Palpation: normal PMI Rate: regular rate Rhythm: irregularly irregular Heart sounds: S1 normal, S2 normal and normal, physiologic split S2; negative rub, gallop or murmur GI GI: normal to inspection, soft, no hepatosplenomegaly and bowel sounds present Neuro General: alert, awake, oriented x3, gait normal, moves all extremities and no focal sensory deficit Skin Skin: no rashes or lesions noted Extremities Pulses: Normal: Right Femoral Pulse, Left Femoral Pulse, Right Dorsalis Pedis Pulse, Left Dorsalis Pedis Pulse, Right Posterior Tibial Pulse, Left Posterior Tibial Pulse, Right Radial Pulse, Left Radial Pulse Lower Extremity Edema: None: Bilateral Musculoskel Musculoskeletal: No joint tenderness Psych Psychological: normal affect Assessment & Plan Problems 1. Paroxysmal atrial fibrillation I48.0 2. Bilateral pulmonary embolism I26.99 3. Essential hypertension I10 4. Hyperlipidemia, unspecified hyperlipidemia type E78.5 Plan - Susie MUSA, PA Patient is scheduled to undergo a cardioversion today. He will follow up accordingly. He will continue with his rate limiting medication and his factor Xa inhibitor. Procedure Criteria Procedure Type: Elective COVID Risk Discussion: The surgeon/proceduralist and patient have discussed in detail the risk of exposure to and/or potential harm posed by the COVID-19 virus with having a surgery/procedure at this time versus the risk of delaying the surgery/ procedure. It is not possible to know either the risk of delaying the surgery or procedure or chance of getting an infection with perfect accuracy, but a joint decision was made between the patient and the surgeon/proceduralist to proceed at this time with the scheduled surgery/procedure as indicated on the consent form.
--- NOTE | 2020-06-01 12:21 | CARDIOVERS ---
Cardioversion Cardioversion: DC cardioversion. 64-year-old man with a history of persistent atrial fibrillation. Patient has been anticoagulated for a minimum of 4 weeks. The patient was brought to the cardiac catheterization lab in the postabsorptive nonsedated state. Informed consent was obtained. The patient was seen by Dr. Lester of the critical care division. Anterior-posterior pads were applied. The patient was administered 60 mg of intravenous propofol. 360 J of biphasic DC cardioversion energy were applied with prompt reversal to sinus rhythm. Patient tolerated the procedure well. Conclusion: Successful DC cardioversion to sinus rhythm. Continue current anticoagulation regimen. Continue beta-jhon.
--- NOTE | 2020-06-01 13:56 | PRO.PCM_ITS ---
Problem List (1) Central sleep apnea associated with atrial fibrillation Status: Chronic (2) Chronic diastolic (congestive) heart failure Status: Chronic (3) Essential (primary) hypertension Status: Chronic (4) Hyperlipidemia Status: Chronic Qualifiers: Hyperlipidemia type: unspecified Qualified Code(s): E78.5 - Hyperlipidemia, unspecified (5) Paroxysmal atrial fibrillation Status: Chronic Procedure Report Date of Procedure: 06/01/20 - Sedation CONSCIOUS SEDATION REPORT BRIEF HISTORY OF PRESENT ILLNESS: The patient is a 64-year-old male who presented to [facility] for an elective outpatient cardioversion due to underlying atrial fibrillation. The patient reports no PO intake since midnight. The patient does have a history of obstructive sleep apnea. The patient reports no history of smoking and COPD. The patient denies any recent constitutional symptoms such as fevers, chills, nausea or vomiting. The patient denies previous anesthetic complications. Patient's last known ejection fraction was 55%. Patient had a previous cardioversion and tolerated well with 60 mg of propofol, but required 2 shocks with 303 160 J respectively PHYSICAL EXAMINATION: VITAL SIGNS: Reviewed and were acceptable. GENERAL: The patient is a male, in no apparent distress, speaking in full sentences. HEENT: Normocephalic, atraumatic. Mucous membranes are moist and pink. Good mouth opening noted. Trachea is midline. Good neck mobility. MP IV CHEST: S1, S2 irregularly irregular. No murmurs, rubs or gallops were noted. LUNGS: Clear to auscultation bilaterally without appreciable wheezes, rales or rhonchi. ABDOMEN: Soft, nontender, nondistended. Positive bowel sounds. EXTREMITIES: There is no clubbing, cyanosis or edema. ASA Class: II DESCRIPTION OF PROCEDURE: After confirmation of informed consent, the patient's anesthesia plan was reviewed in detail. Propofol was chosen. Risks and benefits were reviewed and the patient agreed to proceed. At 12:15 PM, the patient was given 40 mg of propofol. The patient required a total of 60 mg of propofol throughout the procedure to achieve appropriate sedation. The patient achieved an appropriate level of sedation and received 1 attempt synchronized cardioversion, at [address] Shore at the bedside. This was successful in achieving normal sinus rhythm. The patient was monitored until 12:26 PM, at which time the patient reached their baseline mental status and function. The patient tolerated the procedure well. COMPLICATIONS: None ESTIMATED BLOOD LOSS: None RECOMMENDATIONS: Okay to recover in usual fashion. [id number]: Other Procedure See Report - [id number]
== END 2020-06-01 13:27 | disposition home or self-care (01) ==
LOC: CLSP 10:20
PROVIDERS: PCP Family Medicine; Referring Provider Internal Medicine Cardiovascular Disease; Visit Provider Internal Medicine Cardiovascular Disease
DX: I48.0 Paroxysmal atrial fibrillation (principal); I11.0 Hypertensive heart disease with heart failure; I50.32 Chronic diastolic (congestive) heart failure; E78.5 Hyperlipidemia, unspecified; I26.99 Other pulmonary embolism without acute cor pulmonale; I48.91 Unspecified atrial fibrillation; G47.37 Central sleep apnea in conditions classified elsewhere; Z86.16 Personal history of COVID-19; Z88.0 Allergy status to penicillin; G47.33 Obstructive sleep apnea (adult) (pediatric); Z88.2 Allergy status to sulfonamides
CPT/HCPCS: 36415; 80048; 92960; 93005; J7040

== ENCOUNTER → 2020-07-11 10:15 | Outpatient (CLI) | payer BC, SELFPAY ==
[2020-07-11 12:39] LABS: Anion Gap 8 (5-15); BUN 11 mg/dL (7-18); BUN/Creat Ratio 12.5 RATIO (10-20); Calcium,Total 8.6 mg/dL (8.5-10.1); Chloride 102 mmol/L (98-107); Creatinine, Serum 0.88 mg/dL (0.70-1.30); EST Glomerular Filtration Rate 93 mL/min (>60); Est Glom Filt Rate - Afr Amer 113 mL/min (>60); Glucose 146 mg/dL (74-106); Potassium 3.8 mmol/L (3.5-5.1); Sodium Level 136 mmol/L (136-145)
== END ==
PROVIDERS: PCP Family Medicine; Referring Provider Family Medicine; Visit Provider Internal Medicine Cardiovascular Disease
DX: I48.19 Other persistent atrial fibrillation (principal); I50.32 Chronic diastolic (congestive) heart failure; L03.90 Cellulitis, unspecified
CPT/HCPCS: 36415; 80048; 87070; 87077; 87186; 87205

== ENCOUNTER 2020-07-23 09:52 | Day surgery (SDC) | payer BC, SELFPAY ==
[2020-07-19 07:57] VITALS: BMI 54.3
--- NOTE | 2020-07-23 12:09 | PCM.OP.BLANK ---
Problems Associated Problem List Diagnoses (1) Persistent atrial fibrillation: Operative Report Date of Procedure: 07/23/20 DC cardioversion. 64-year-old man with a history of chronic persistent atrial fibrillation and normal coronary arteries. Patient was noted to be anticoagulated and on antiarrhythmic and brought to the cardiac catheterization lab in the postabsorptive nonsedated state. Informed consent was obtained. The patient was seen by Dr. Lester of the critical care division. Anterior-posterior pads were applied. The patient was then administered 50 mg of intravenous propofol. 300 J of biphasic DC energy were applied which were unsuccessful in restoring sinus rhythm. The patient was then administered an additional 20 mg of intravenous propofol and then 360 J of biphasic synchronized DC energy were applied which was unsuccessful in maintaining/converting to sinus rhythm. Conclusion: Unsuccessful DC cardioversion from atrial fibrillation to sinus rhythm. Patient maintained atrial fibrillation flutter. We will consider referral for A. fib ablation.
--- NOTE | 2020-07-23 13:40 | PCM.OP.PRO ---
Assessment & Plan Assessment/Plan (1) Persistent atrial fibrillation: (2) Chronic diastolic (congestive) heart failure: (3) Bilateral pulmonary embolism: (4) Central sleep apnea associated with atrial fibrillation: Procedure Report Date of Procedure: 07/23/20 CONSCIOUS SEDATION REPORT BRIEF HISTORY OF PRESENT ILLNESS: The patient is a 64-year-old male who presented to [facility] for an elective outpatient cardioversion due to underlying atrial fibrillation. The patient reports NPO intake since midnight. The patient does have a history of obstructive sleep apnea. The patient reports no history of smoking and COPD. The patient denies any recent constitutional symptoms such as fevers, chills, nausea or vomiting. The patient denies previous anesthetic complications. Patient's last ejection fraction was 53%. Patient did take Xarelto within 24 hours of the procedure. PHYSICAL EXAMINATION: VITAL SIGNS: Reviewed and were acceptable. GENERAL: The patient is a male, in no apparent distress, speaking in full sentences. HEENT: Normocephalic, atraumatic. Mucous membranes are moist and pink. Good mouth opening noted. Trachea is midline. Good neck mobility. MP IV CHEST: S1, S2 irregularly irregular. No murmurs, rubs or gallops were noted. LUNGS: Clear to auscultation bilaterally without appreciable wheezes, rales or rhonchi. ABDOMEN: Soft, nontender, nondistended. Positive bowel sounds. EXTREMITIES: There is no clubbing, cyanosis or edema. ASA Class: II DESCRIPTION OF PROCEDURE: After confirmation of informed consent, the patient's anesthesia plan was reviewed in detail. Propofol was chosen. Risks and benefits were reviewed and the patient agreed to proceed. At 12 PM, the patient was given 40 mg of propofol. The patient required a total of 70 mg of propofol throughout the procedure to achieve appropriate sedation. The patient achieved an appropriate level of sedation and received 2 attempt synchronized cardioversion, at 300 J and [address] Shore at the bedside. This was unsuccessful in achieving normal sinus rhythm. The patient was monitored until 12:11 PM, at which time the patient reached their baseline mental status and function. The patient tolerated the procedure well. COMPLICATIONS: None ESTIMATED BLOOD LOSS: None RECOMMENDATIONS: Okay to recover in usual fashion. Procedures Pulmonary CF Procedures Pulmonary: 17783 Con Sedation (11 minutes)
== END 2020-07-23 13:15 | disposition home or self-care (01) ==
LOC: CLSP 13:23
PROVIDERS: PCP Family Medicine; Referring Provider Internal Medicine Cardiovascular Disease; Visit Provider Internal Medicine Cardiovascular Disease
DX: I48.19 Other persistent atrial fibrillation (principal); I48.0 Paroxysmal atrial fibrillation; I26.99 Other pulmonary embolism without acute cor pulmonale; I11.0 Hypertensive heart disease with heart failure; I50.32 Chronic diastolic (congestive) heart failure; I48.92 Unspecified atrial flutter; G47.33 Obstructive sleep apnea (adult) (pediatric); G47.31 Primary central sleep apnea; E78.5 Hyperlipidemia, unspecified; E66.9 Obesity, unspecified; Z79.1 Long term (current) use of non-steroidal anti-inflammatories (NSAID); Z79.01 Long term (current) use of anticoagulants; Z79.899 Other long term (current) drug therapy; Z86.16 Personal history of COVID-19; Z86.73 Personal history of transient ischemic attack (TIA), and cerebral infarction without residual deficits
CPT/HCPCS: 92960; 93005; J7040

== ENCOUNTER → 2020-11-23 08:18 | Outpatient (CLI) | payer BC, SELFPAY | PROVIDERS: PCP Family Medicine; Referring Provider Internal Medicine Cardiovascular Disease; Visit Provider Internal Medicine Cardiovascular Disease | DX: Z20.822 Contact with and (suspected) exposure to COVID-19 (principal) | CPT/HCPCS: 87635; C9803; U0005; U0003 ==

== ENCOUNTER 2020-12-25 09:49 | Day surgery (SDC) | payer BC, SELFPAY ==
--- NOTE | 2020-12-25 09:39 | HP.PCM_ITS ---
History and Physical Date of Admission: 12/25/20 RICHI HU, is a 65 M who presents for a cardioversion. He had presented to the hospital with shortness of breath and irregular heartbeat on 05/02/2018. He was noted to be in atrial fibrillation with a rapid ventricular response rate and also demonstrated bilateral pulmonary emboli from a CT scan. He was hospitalized and treated with anticoagulation and also diuresed since his natriuretic peptide was elevated. An echocardiogram was performed demonstrating an ejection fraction approximately 53%. He was also noted to be hypertensive and treated for that. He underwent a cardioversion on 07/13/2018. He also has a history of hypertension, hyperlipidemia, CVA, and BORIS. Patient presented [facility] emergency department on 11/15/2019 for chest pain. He was noted to have a 9 beat run of wide-complex tachycardia. He underwent echocardiogram on 11/15/2019 that showed ejection fraction 55% and mild concentric LVH. He underwent a heart catheterization on 11/16/2019 showed showed ejection fraction of 60% and normal coronary arteries. His lisinopril was increased to 20 mg p.o. daily to assist with hypertension. He did unfortunately sustain COVID-19 in January 2020. Patient underwent cardioversion on 06/01/2020. On 06/19/2020, he sent an email from his [facility] EKG showing atrial fibrillation. He presented to office on 06/22/2020 for an EKG that showed atrial fibrillation/flutter. He was started on flecainide 100 mg p.o. twice daily. His flecainide was increased to 150 mg p.o. twice daily after his EKG on 07/06/2020 continued to show atrial fibrillation. He proceed with repeat cardioversion on 07/23/2020 that was unsuccessful. He was referred to restaurant management internship, Dr. Cummins. He proceeded with ablation on 11/29/2020 and flecainide was discontinued and changed to sotalol therapy. His EKG on 12/24/2020 continued to show atrial fibrillation/flutter at a controlled rate. He presents today for cardioversion. He denies arm, jaw, or neck discomfort. His exercise tolerance is stable. He denies symptoms of palpitations, lightheadedness, dizziness, near syncope, or syncopal episodes. He denies edema or claudication issues. He denies orthopnea, PND, fever, chills, blood in urine, blood in stool, myalgia, or unexplainable fatigue. Physical exam is otherwise unremarkable. Intake Vital Signs: See EMR Intake Visit Reasons: DCCV Allergies Penicillins Allergy (Verified 04/25/20 09:09) Anaphylaxis Sulfa (Sulfonamide Antibiotics) Allergy (Verified 04/25/20 09:09) Hives Medications See EMR Ejection fraction %: 60 to 64 [facility] Medical History COVID-19 virus detected (Resolved 02/17/20) Paroxysmal atrial fibrillation (Chronic) Chronic diastolic (congestive) heart failure (Chronic) Bilateral pulmonary embolism (Chronic 05/02/18) Essential (primary) hypertension (Chronic) Hyperlipidemia (Chronic) Central sleep apnea associated with atrial fibrillation (Chronic) Central sleep apnea (Chronic) Obesity (Chronic) Back pain (Resolved) Chest pain (Resolved) Diffuse otitis externa, left ear (Resolved) Dysfunction of both eustachian tubes (Resolved) Fatigue (Resolved) Knee pain (Resolved) SOB (shortness of breath) (Resolved) Severe headache (Resolved) Paroxysmal atrial fibrillation with rapid ventricular response (Inactive 05/02/18) Persistent atrial fibrillation (Inactive) Surgical History History of tonsillectomy and adenoidectomy (Suspected) History of back surgery (Resolved) History of cardioversion (Resolved 07/13/18) History of knee surgery (Resolved) History of left heart catheterization (Resolved 11/16/19) History of total right knee replacement (Resolved) Family History Father Cancer glioblastoma Social History (Updated 04/25/20 @ 15:[address] Terell Shore MD) Smoking Status: Never smoker alcohol intake: never ROS Const Const: Negative for fatigue, weakness, headache(s), frequent falls, difficulty sleeping or excessive sweating Eyes Eyes: Negative for loss of peripheral vision, transient loss of vision, blurry vision, double vision or tunnel vision ENT ENT: Negative for headache(s), dizziness, Nosebleed/epistaxis or balance problems Cardio Chest Pain: No Palpitations: No Edema: Bilateral (chronic BLE edema), None Muscle aches with walking: None Resp Respiratory: Positive for SOB with activity; negative for SOB at rest, SOB orthopnea\SOB lying down, Cough or paroxysmal nocturnal dyspnea GI GI: Negative nausea, vomiting, heartburn or black,tarry stools : Negative for hematuria Musc Musc: Negative for muscle aches/ myalgia, muscle weakness, joint pain or balance problems Skin Skin: Negative non-healing lesions, rash or unusual bruising Neuro Neuro: Negative for dizziness, lightheadedness, near syncope, syncope, orthost atic symptoms, frequent falls, headache(s), weakness, blurry vision, double vision or lack of coordination Mauricio Hematologic/Lymphatic: Negative for easy bleeding or easy bruising Endo Endo: Negative for fatigue, excessive sweating or increased thirst/drinking Psych Psych: Negative for anxiety or depression Allergy Allergy/Immunology: Negative for hives, Negative for rash Cardiology Exam Const Appearance: cooperative, healthy appearing, no acute distress, well developed and well groomed Nutritional Appearance: average body habitus and well nourished Orientation: alert, awake and oriented x3 Head Head: normal to inspection, normocephalic and atraumatic Ears: hearing grossly normal bilaterally and external ears normal Nose: external nose normal, nares normal, nasal mucous membranes and turbinates normal, septum normal, no nasal discharge Face and Sinus: face symmetric Mouth: oral mucosae normal, tongue normal, oropharynx normal and moist mucous membranes Teeth and gingiva: dentition normal Throat: posterior oropharynx normal, tonsils normal and uvula midline Eyes General: appearance normal, both eyes and all related structures Eyelids: eyelids normal Conjunctivae: conjunctivae normal Pupils: PERRL, normal by confrontation and accommodation normal EOM: EOM intact bilaterally Neck Neck: normal visual inspection, trachea midline and no JVD JVD: +5 Carotids: normal carotid upstroke and bounding pulses Chest Chest inspection: normal inspection of the chest, symmetric chest movement and normal respiratory effort Auscultation: Bilateral: Clear to Auscultation Cardio Palpation: normal PMI Rate: regular rate Rhythm: regular rhythm Heart sounds: S1 normal, S2 normal and normal, physiologic split S2; negative rub, gallop or murmur GI GI: normal to inspection, soft, no hepatosplenomegaly and bowel sounds present Neuro General: alert, awake, oriented x3, gait normal, moves all extremities and no focal sensory deficit Skin Skin: no rashes or lesions noted Extremities Pulses: Normal: Right Femoral Pulse, Left Femoral Pulse, Right Dorsalis Pedis Pulse, Left Dorsalis Pedis Pulse, Right Posterior Tibial Pulse, Left Posterior Tibial Pulse, Right Radial Pulse, Left Radial Pulse Lower Extremity Edema: None: Bilateral Musculoskel Musculoskeletal: No joint tenderness Psych Psychological: normal affect Assessment & Plan 1. Dyspnea R06.00 Plan He does have a history of dyspnea which has recently been worsened likely secondary to his COVID-19 infection his previous echocardiogram had demonstrated preserved ejection fraction. We will adjust medication as needed. 2. Paroxysmal atrial fibrillation I48.0 Plan He does have a history of paroxysmal atrial fibrillation with multiple cardioversions and now ablation. He will proceed with cardioversion. He will continue current medications and we adjust as needed. 3. Chronic diastolic (congestive) heart failure I50.32 Plan He does have diastolic heart failure he remains on CHANCE inhibitor as well as diuretic and we will not make any changes. 4. Bilateral pulmonary embolism I26.99 Plan As you know he has a propensity to pulmonary embolism and has remained on anticoagulation. I would not suggest that we make any changes again at this time. 5. Essential (primary) hypertension I10 He will continue current medications. Thank you for allowing me to participate in his care.
[2020-12-25 10:21] LABS: Anion Gap 7 (5-15); BUN 14 mg/dL (7-18); Calcium,Total 9.1 mg/dL (8.5-10.1); Chloride 103 mmol/L (98-107); EST Glomerular Filtration Rate 80 mL/min (>60); Est Glom Filt Rate - Afr Amer 97 mL/min (>60); Glucose 119 mg/dL (74-106); Potassium 4.1 mmol/L (3.5-5.1); Sodium Level 138 mmol/L (136-145)
[2020-12-25 10:22] VITALS: BMI 54.5
--- NOTE | 2020-12-25 10:37 | ECHOLC_ITS ---
Reason For Study: R/O pericardial effusion Procedure This was a 2D Doppler, Color Flow transthoracic echocardiogram. Very technically difficult study due to patients body habitus and Afib. Contrast injection performed. [employer] holding room. Left Ventricle Normal LV size. The estimated ejection fraction is 50 %. Left ventricular systolic function is normal. Right Ventricle Normal RV size. Normal systolic function. Atria Normal left atrium. Pericardium/Pleural Small pericardial effusion. Medication Diluted definity 3ml given slow IV push to enhance endocardial definition. ECHO/Echo Limited w/Contrast Interpretation Summary Normal LV size. The estimated ejection fraction is 50 %. Left ventricular systolic function is normal. Contrast injection was performed. Ordering Physician: Terell Shore Referring Physician: Tiarra Bravo M.D. Performed By: Temo Carter RCS
--- NOTE | 2020-12-25 11:46 | OP.PCM_ITS ---
Problems Associated Problem List Diagnoses (1) Persistent atrial fibrillation: Operative Report Date of Procedure: 12/25/20 Direct-current card version. 65-year-old man with a history of atrial fibrillation status post A. fib ablation who presents with recurrent atrial fibrillation. Patient has been anticoagulated and has also been on sotalol. On advice of the content producer the decision was made to DC cardioversion. After informed consent was obtained patient was brought to the cardiac catheterization lab in a postabsorptive nonsedated state. Anterior-posterior pads were applied. Informed consent was obtained. He was seen by Dr. Lester of the critical care division. He was administered 60 mg of intravenous propofol. 300 J of synchronized DC cardioversion energy were applied which was unsuccessful in restoring sinus rhythm. 360 J of synchronized DC cardioversion energy were then applied with prompt reversal to sinus rhythm. Patient tolerated the procedure well. Conclusion: Successful DC cardioversion from atrial fibrillation to sinus rhythm. Plan is to continue current medical therapy with anticoagulation and sotalol. Follow-up as per office protocol.
--- NOTE | 2020-12-25 15:49 | PRO.PCM_ITS ---
Assessment & Plan Assessment/Plan (1) Atrial fibrillation/flutter: (2) Chronic diastolic (congestive) heart failure: (3) Central sleep apnea associated with atrial fibrillation: Procedure Report Date of Procedure: 12/25/20 CONSCIOUS SEDATION REPORT BRIEF HISTORY OF PRESENT ILLNESS: The patient is a 65-year-old male who presented to [facility] for an elective outpatient cardioversion due to underlying atrial fibrillation. The patient reports no PO intake since midnight, but is currently therapeutic on anticoagulation. The patient does have a history of obstructive sleep apnea and is compliant with therapy. The patient reports no history of smoking and COPD. The patient denies any recent constitutional symptoms such as fevers, chills, nausea or vomiting. The patient denies previous applicable anesthetic complications. PHYSICAL EXAMINATION: VITAL SIGNS: Reviewed and were acceptable. GENERAL: The patient is a male, in no apparent distress, speaking in full sentences. HEENT: Normocephalic, atraumatic. Mucous membranes are moist and pink. Good mouth opening noted. Trachea is midline. Good neck mobility. MP IV CHEST: S1, S2 irregularly irregular. No murmurs, rubs or gallops were noted. LUNGS: Clear to auscultation bilaterally without appreciable wheezes, rales or rhonchi. ABDOMEN: Soft, nontender, nondistended. Positive bowel sounds. EXTREMITIES: There is no clubbing, cyanosis or edema. ASA Class: II DESCRIPTION OF PROCEDURE: After confirmation of informed consent, the patient's anesthesia plan was reviewed in detail. Propofol was chosen. Risks and benefits were reviewed and the patient agreed to proceed. At 11:40 AM, the patient was given 40 mg of propofol. The patient required a total of 80 mg of propofol throughout the procedure to achieve appropriate sedation. The patient achieved an appropriate level of sedation and received 2 attempt s synchronized cardioversion, at 300 J and [address] Shore at the bedside. This was successful in achieving normal sinus rhythm. The patient was monitored until 11:52 AM, at which time the patient reached their baseline mental status and function. The patient tolerated the procedure well. COMPLICATIONS: None ESTIMATED BLOOD LOSS: None RECOMMENDATIONS: Okay to recover in usual fashion. Procedures Pulmonary 9xxxx: [id number] Con Sedation
== END 2020-12-25 12:45 | disposition home or self-care (01) ==
PROVIDERS: PCP Family Medicine; Referring Provider Internal Medicine Cardiovascular Disease; Visit Provider Internal Medicine Cardiovascular Disease
DX: I48.0 Paroxysmal atrial fibrillation (principal); I48.92 Unspecified atrial flutter; I11.0 Hypertensive heart disease with heart failure; I50.32 Chronic diastolic (congestive) heart failure; I27.82 Chronic pulmonary embolism; E78.5 Hyperlipidemia, unspecified; G47.31 Primary central sleep apnea; G47.33 Obstructive sleep apnea (adult) (pediatric); E66.9 Obesity, unspecified; Z79.01 Long term (current) use of anticoagulants; Z79.899 Other long term (current) drug therapy; Z86.16 Personal history of COVID-19; Z86.73 Personal history of transient ischemic attack (TIA), and cerebral infarction without residual deficits; Z96.651 Presence of right artificial knee joint
CPT/HCPCS: 36415; 80048; 92960; 93005; 93308; J7040; Q9957; A4216; C8924

== ENCOUNTER 2021-04-24 08:14 | Outpatient (CLI) | payer BC, SELFPAY | END 2021-04-24 23:59 | disposition home or self-care (01) | PROVIDERS: PCP Family Medicine; Referring Provider Student in an Organized Health Care Education/Training Program; Visit Provider Student in an Organized Health Care Education/Training Program | DX: I73.89 Other specified peripheral vascular diseases (principal) | CPT/HCPCS: 93923 ==

== ENCOUNTER 2021-04-24 09:52 | Outpatient (CLI) | payer BC, SELFPAY ==
[2021-04-24 12:27] LABS: Potassium 4.2 mmol/L (3.5-5.1)
== END 2021-04-24 23:59 | disposition home or self-care (01) ==
LOC: MFPLAB 09:53
PROVIDERS: PCP Family Medicine; Referring Provider Family Medicine; Visit Provider Internal Medicine Cardiovascular Disease
DX: I48.19 Other persistent atrial fibrillation (principal); Z79.899 Other long term (current) drug therapy
CPT/HCPCS: 36415; 84132

== ENCOUNTER 2021-12-30 00:02 | Emergency (ER) | payer BC, SELFPAY ==
[2021-12-30] VITALS (8 sets, daily range): BP systolic 112–146; BP diastolic 54–82; PULSE 48–99; RESP 15–18; TEMP 35.8–36.3; O2SAT 92–99; BMI 65.7
--- NOTE | 2021-12-30 00:30 | CT_ITS ---
STUDY: CT ABDOMEN AND PELVIS WITHOUT CONTRAST REASON FOR EXAM: Male, 66 years old. Pain RADIATION DOSAGE (If Supplied By Facility): CTDIvol = ( 33.77 ) mGy, DLP = ( 1942.95 ) mGycm TECHNIQUE: Transaxial images were obtained from the dome of the diaphragm to the symphysis pubis without oral contrast, and without intravenous contrast. Sagittal and coronal images were reconstructed. Individualized dose optimization techniques were used for this CT. COMPARISON: 05/06/2020. FINDINGS: Bilateral lower lobe and lingular atelectasis. The visualized portions of the heart are within normal limits. Normal liver. There are multiple gallstones. Normal spleen. Normal pancreas. Normal bilateral adrenal glands. Normal right kidney. Small left lower renal pole exophytic low-attenuation structure measuring 1.3 cm most compatible with a simple renal cyst. Otherwise normal left kidney. Normal visualized stomach. Normal small intestine. Normal colon. The appendix is visualized and appears normal. There is mild atherosclerotic calcification of the abdominal aorta, without a demonstrated aneurysm. Normal inferior vena cava. Normal retroperitoneum. Normal urinary bladder. Normal abdominal wall. There are diffuse degenerative changes of the visualized lumbar spine. CT/Abdomen/Pelvis without Cont IMPRESSION: No acute appendicitis or bowel obstruction. Multiple tiny gallstones. Small cyst within the left kidney measuring 1.3 cm. Remainder of abdominal viscera unremarkable. Electronically Signed: Karoline Napier MD at 1:54 EDT ,
--- NOTE | 2021-12-30 00:31 | EDS_ITS ---
HPI HPI - GI History of Present Illness Chief Complaint: Abd Pain Detail of Chief Complaint: Nominal pain that started this morning and it was mild to the lower abdomen Informant: patient Narrative Narrative: Patient presents with abdominal pain initially started this morning and was mild. Patient states the pain became more severe 4 hours ago. Pain is lower abdomen more on the right. He is never had pain like this before. He rates his pain a 10 out of 10. He has had no vomiting. He denies fever. He denies urinary symptoms. No prior abdominal surgeries. [facility] Medical History Back pain Bilateral pulmonary embolism (05/02/18) Central sleep apnea Central sleep apnea associated with atrial fibrillation Chronic diastolic (congestive) heart failure COVID-19 virus detected (02/17/20) Diffuse otitis externa, left ear Dysfunction of both eustachian tubes Essential (primary) hypertension Fatigue History of CVA (cerebrovascular accident) (04/2018) Hyperlipidemia Knee pain Lumbar stenosis without neurogenic claudication Obesity Paroxysmal atrial fibrillation Paroxysmal atrial fibrillation with rapid ventricular response (05/02/18) Persistent atrial fibrillation Severe headache SOB (shortness of breath) Home Medications cholecalciferol (vitamin D3) 25 mcg (1,000 unit) capsule 25 mcg PO DAILY 07/25/20 [History Last Taken Unknown] multivitamin (Multiple Vitamins tablet) 1 tab PO DAILY 07/25/20 [History Last Taken Unknown] latanoprost 0.005 % eye drops 1 drp ophthalmic (eye) DAILY 12/02/20 [History Last Taken Unknown] lisinopril 20 mg tablet See Rx Instructions .Route .COMPLEX #90 TABLETS 04/29/21 [Rx Last Taken Unknown] sotalol 120 mg tablet 120 mg PO BID #180 tabs 07/03/21 [Rx Last Taken Unknown] furosemide 40 mg tablet 40 mg PO DAILY #90 tabs 10/07/21 [Rx Last Taken Unknown] rivaroxaban 20 mg tablet 20 mg PO DINNER #90 tabs 10/07/21 [Rx Last Taken Unknown] Allergy/AdvReac Type Severity Reaction Status Date / Time Penicillins Allergy Anaphylaxis Verified 12/30/21 00:07 Sulfa (Sulfonamide Allergy Hives Verified 12/30/21 00:07 Antibiotics) Family History Father Cancer glioblastoma Mother No problems noted. Surgical History History of back surgery History of cardioversion (12/25/20) History of colonoscopy (04/27/20) History of knee surgery History of left heart catheterization (11/16/19) History of radiofrequency ablation procedure for cardiac arrhythmia (11/29/20) History of tonsillectomy and adenoidectomy History of total right knee replacement Social History household members: spouse and children housing: house Smoking Status: Never smoker alcohol intake: never what type of physical activity do you participate in: none do you feel safe at home: Yes ROS ROS ED Review of Systems ROS Unobtainable: other Constitutional Constitutional ED: Reports lethargy; Denies chills, fever(s), sweats or weight loss Eyes Eyes: Denies blurry vision, change in vision or diplopia ENT ENT ED: Denies rhinorrhea or sore throat Cardiovascular Cardiovascular: Denies chest pain, orthopnea or racing heartbeat Respiratory/Chest Respiratory/Chest: Denies cough, dyspnea, dyspnea on exertion, orthopnea or sputum Gastrointestinal Gastrointestinal: Reports abdominal pain; Denies diarrhea, nausea or vomiting Genitourinary Genitourinary ED: Denies dysuria, hematuria or urinary frequency Musculoskeletal Musculoskeletal: Denies arthralgias, back pain, myalgias or neck pain Integumentary Denies abscess, Abrasions or rash Neurologic Neurologic: Denies headache(s) or weakness Psychiatric Psychiatric: Denies anxiety, depression or suicidal thoughts Endocrine Endocrinology: Denies polydipsia, polyphagia or polyuria Hematologic/Lymphatic Hematologic/Lymphatic: Denies easy bleeding, easy bruising or lymphadenopathy Allergic/Immunologic Allergic/Immunologic ED: Denies mouth swelling, tongue swelling or urticaria EXAM Physical Exam Const Vital Signs: 12/30/21 00:04 12/30/21 01:58 12/30/21 00:02 Temperature 96.4 F L Temperature Source Temporal Pulse Rate 99 72 61 Respiratory Rate 18 15 15 Blood Pressure 135/78 H 117/57 L 135/78 H Blood Pressure Mean 97 77 97 Pulse Ox 99 96 95 Oxygen Delivery Method Room Air Room Air Room Air 12/30/21 01:00 12/30/21 04:00 Temperature Temperature Source Pulse Rate 48 L 61 Respiratory Rate 15 16 Blood Pressure 146/72 H 135/75 H Blood Pressure Mean 96 95 Pulse Ox 92 98 Oxygen Delivery Method Room Air Room Air Positive well nourished and well developed General Appearance ED: well developed and NAD HEENT Reports TM's clear and moist mucous membranes normocephalic and atraumatic; Negative for trauma or tenderness Tympanic Membrane ED: Yes TM's clear Eyes PERRL and EOMs intact bilaterally General Eye ED: Negative for pale conjunctiva or scleral icterus Neck no lymphadenopathy, supple and no JVD General: Negative for tenderness Chest Wall inspection of chest normal and palpation of chest normal Chest: Negative for tenderness Resp normal respiratory effort and clear to auscultation bilaterally Effort and Inspection: Negative for respiratory distress or pain with movement Auscultation: Negative for rhonchi, wheezes or diminished lung sounds Cardio regular rate, regular rhythm, S1 normal heart sound, S2 normal heart sound and no murmurs Peripheral Pulses: pulses 2+ throughout GI normal to inspection, nondistended, normoactive bowel sounds, soft to palpation, non-distended and no masses; Negative for non-tender GI Narrative: Patient has tenderness palpation of the right lower quadrant with some guarding. There is no rebound, rigidity, or. Signs. Patient morbidly obese. No masses palpated. Inspection: abdominal distention Back/Spine no CVA tenderness and no thoracic nor lumbar tenderness Extremity normal to inspection General Extremety ED: Negative for edema General Extremity: Negative for edema Neuro oriented x3, CN's II-XII intact bilaterally, no sensory deficits noted and gait normal Sensorium / Orientation: awake, alert, oriented to person, oriented to place and oriented to time Motor Exam: strength 5/5 throughout and strength abnormal Psych mental status grossly normal Skin no rashes or lesions noted and no wounds MDM MDM MDM Narrative Medical decision making narrative: IV line established on arrival. Patient was medicated with Dilaudid 1 mg IV and Zofran 4 mg IV. Lab work-up showed a CBC with a normal white count of 7.9 and hemoglobin of 14.8 and hematocrit 42.9. Chemistries were unremarkable. LFTs were elevated with a total bilirubin of 2.7 and AST of 95, ALT 71, alk phos 123. Lactate was elevated 2.6. CT scan of the abdomen pelvis with out contrast initially showed gallstones otherwise nothing acute. Patient also had a CT with IV contrast that also just showed gallstones and nothing else acute. I discussed case with general surgeon on-call who recommended transfer of patient to tertiary care center potentially as patient would likely require an ERCP and given his large body habitus it was not felt he was a good surgical candidate for our facility. Patient initially wanted to go to [facility] or [facility] however these facilities currently do not have any availability to accept patient for transfer. Discussed case with [facility] and was able to get admission to [facility] where I spoke with their hospitalist and printer apprentice on-call. Patient will be transferred to their facility for definitive diagnosis and treatment of his abdominal pain. Lab Data Attestation: I reviewed the patient's lab results. Labs: Laboratory Results - last 24 hr 12/30/21 12/30/21 12/30/21 00:10 00:10 00:48 WBC 7.9 RBC 4.59 L Hgb 14.8 Hct 42.9 MCV 93.5 MCH 32.2 H MCHC 34.5 RDW Std Deviation 46.8 H RDW Coeff of [place] 13.7 Plt Count 193 MPV 9.6 Immature Gran % (Auto) 0.400 Neut % (Auto) 68.5 Lymph % (Auto) 20.1 [place] % (Auto) 8.6 Eos % (Auto) 1.8 Baso % (Auto) 0.6 Absolute Neuts (auto) 5.4 Absolute Lymphs (auto) 1.58 Nucleated RBC % 0 Sodium 139 Potassium 3.7 Chloride 104 Carbon Dioxide 26.0 Anion Gap 9 BUN 11 Creatinine 0.79 Estim Creat Clear Calc 119.05 Est GFR (MDRD) Af Amer 127 Est GFR (MDRD) Non-Af 105 BUN/Creatinine Ratio 13.9 Glucose 156 H Lactic Acid 2.6 H* Calcium 9.1 Total Bilirubin 2.70 H AST 95 H ALT 71 H Alkaline Phosphatase 123 H Total Protein 6.8 Albumin 3.5 Globulin 3.3 Albumin/Globulin Ratio 1.1 Urine Color Urine Clarity Urine pH Ur Specific Anita Urine Protein Urine Glucose (UA) Urine Ketones Urine Occult Blood Urine Nitrite Urine Bilirubin Urine Urobilinogen Ur Leukocyte Esterase Urine RBC Urine WBC Ur Squamous Epith Cells Urine Bacteria Urine Mucus 12/30/21 01:50 WBC RBC Hgb Hct MCV MCH MCHC RDW Std Deviation RDW Coeff of [place] Plt Count MPV Immature Gran % (Auto) Neut % (Auto) Lymph % (Auto) [place] % (Auto) Eos % (Auto) Baso % (Auto) Absolute Neuts (auto) Absolute Lymphs (auto) Nucleated RBC % Sodium Potassium Chloride Carbon Dioxide Anion Gap BUN Creatinine Estim Creat Clear Calc Est GFR (MDRD) Af Amer Est GFR (MDRD) Non-Af BUN/Creatinine Ratio Glucose Lactic Acid Calcium Total Bilirubin AST ALT Alkaline Phosphatase Total Protein Albumin Globulin Albumin/Globulin Ratio Urine Color Yellow Urine Clarity Clear Urine pH 7.0 Ur Specific [place]ita 1.010 Urine Protein Negative Urine Glucose (UA) Normal Urine Ketones Negative Urine Occult Blood Negative Urine Nitrite Negative Urine Bilirubin Negative Urine Urobilinogen 4 H Ur Leukocyte Esterase 25 H Urine RBC 0 SEEN Urine WBC 0-5 SEEN Ur Squamous Epith Cells 0 SEEN Urine Bacteria RARE Urine Mucus 0 SEEN Radiography Diagnostic Testing: Clinical Impression(s) from Imaging Studies Abdomen/Pelvis CT 12/30/21 00:30 IMPRESSION: No acute appendicitis or bowel obstruction. Multiple tiny gallstones. Small cyst within the left kidney measuring 1.3 cm. Remainder of abdominal viscera unremarkable. Electronically Signed: Karoline Napier MD at 1:54 EDT Reading Location ID and State: [place] / [place] , Service support , Abdomen/Pelvis CT 12/30/21 01:57 IMPRESSION: Gallstones with no signs of acute cholecystitis. Tiny left-sided simple renal cyst measuring 1 cm. Remainder of abdominal viscera are unremarkable. No acute appendicitis or bowel obstruction. Electronically Signed: Karoline Napier MD at 3:26 EDT , Discharge Plan Triage Chief Complaint: Abd Pain ED Provider: David Stallworth Dx/Rx/DC Orders Clinical Impression: Abdominal pain, Cholelithiasis, Elevated liver enzymes Prescriptions: No Action sotalol 120 mg tablet 120 mg PO BID Qty: 180 3RF multivitamin [Multiple Vitamins] Tablet 1 tab PO DAILY cholecalciferol (vitamin D3) 25 mcg (1,000 unit) capsule 25 mcg PO DAILY latanoprost 0.005 % drops 1 drp ophthalmic (eye) DAILY lisinopril 20 mg tablet See Rx Instructions .ROUTE .COMPLEX Qty: 90 3RF Dose Instruction: TAKE 1 TABLET DAILY Rx Instructions: TAKE 1 TABLET DAILY furosemide 40 mg tablet 40 mg PO DAILY Qty: 90 4RF rivaroxaban 20 mg tablet 20 mg PO DINNER Qty: 90 3RF Rx Instructions: must administer with evening meal Primary Care Provider: Tiarra Bravo Referrals: Tiarra Bravo MD [Primary Care Provider] - Disposition Disposition: DC/Tx to Another Type of HCF
[2021-12-30] MEDS: Ondansetron 4 MG/2 ML Vial IV (00:37)
[2021-12-30] MEDS: HYDROmorphone 1 MG/ML Syringe IV (00:37)
[2021-12-30] MEDS: Ketorolac 15 MG/ML Vial IV (00:40)
[2021-12-30] MEDS: 0.9% Normal Saline 1,000 ML 125 ML IV (00:45)
[2021-12-30 00:54] LABS: Absolute Lymphocyte Count 1.58 X10^3/uL (0.83-4.51); Absolute Neutrophil Count 5.4 X10^3/uL (2.0-7.7); Basophil# 0.05 X10^3/uL; Basophil% 0.6 % (0-1); Eosinophil# 0.14 X10^3/uL; Eosinophils% 1.8 % (0-5); Hematocrit 42.9 % (40-54); Hemoglobin 14.8 g/dL (13.0-16.5); Lymphocyte # 1.58 X10^3/ul (0.83-4.51); Lymphocyte % 20.1 % (19-41); Mean Corp Hgb Conc 34.5 g/dL (32-36); Mean Corpuscular Hgb 32.2 pg (27.0-32.0); Mean Corpuscular Volume 93.5 fL (80-94); Mean Platelet Vol. 9.6 fl (6.2-12.0); Monocyte# 0.68 X10^3/uL; Monocyte% 8.6 % (0-10); NRBC Flagged by Analyzer 0 % (0-5); Neutrophil # 5.39 X10^3/uL (2.7-7.7); Neutrophil % 68.5 % (47-70); Platelet Count 193 K/mm3 (150-450); RBC Distribution Width CV 13.7 % (11.6-14.6); RBC Distribution Width SD 46.8 fl (35.1-43.9); Red Blood Count 4.59 M/mm3 (4.6-6.2); White Blood Count 7.9 K/mm3 (4.4-11.0)
[2021-12-30 01:12] LABS: ALB/GLOB Ratio 1.1 RATIO (0.9-2.4); AST(SGOT) 95 U/L (15-37); Alanine Aminotransfer ALT/SGPT 71 U/L (16-61); Albumin, Serum 3.5 g/dL (3.2-5.0); Alkaline Phosphatase 123 U/L (45-117); Anion Gap 9 (5-15); BUN 11 mg/dL (7-18); BUN/Creat Ratio 13.9 RATIO (10-20); Calcium,Total 9.1 mg/dL (8.5-10.1); Chloride 104 mmol/L (98-107); Creatinine, Serum 0.79 mg/dL (0.70-1.30); EST Glomerular Filtration Rate 105 mL/min (>60); Est Glom Filt Rate - Afr Amer 127 mL/min (>60); Estimated Creatinine Clearance 119.05 ml/min; Globulin 3.3 g/dL (2.2-4.2); Glucose 156 mg/dL (74-106); Potassium 3.7 mmol/L (3.5-5.1); Protein, Total 6.8 g/dL (6.4-8.2); Sodium Level 139 mmol/L (136-145)
[2021-12-30 01:26] LABS: Lactic Acid 2.6 mmol/L (0.4-1.9)
--- NOTE | 2021-12-30 01:57 | CT_ITS ---
STUDY: CT ABDOMEN AND PELVIS WITH CONTRAST REASON FOR EXAM: Male, 66 years old. abdominal pain RADIATION DOSAGE (If Supplied By Facility): CTDIvol = ( 21.87 ) mGy, DLP = ( 1935.28 ) mGycm TECHNIQUE: Transaxial images were obtained from the dome of the diaphragm to the symphysis pubis without oral contrast. IV 100mL Isovue-370 was administered. Sagittal and coronal images were reconstructed. Individualized dose optimization techniques were used for this CT. COMPARISON: 12/30/2021. FINDINGS: Mild bilateral lower lobe atelectasis, right more than left. The visualized portions of the heart are within normal limits. Normal liver. Multiple small gallstones near the gallbladder neck, largest averaging approximately 1 cm. Otherwise unremarkable gallbladder and biliary system. Normal spleen. Normal pancreas. Normal bilateral adrenal glands. Normal right kidney. Small left exophytic low-attenuation structure consistent with simple cyst measuring 1 cm. Otherwise normal left kidney. Normal visualized stomach. Normal small intestine. Normal colon. The appendix is visualized and appears normal. There is mild atherosclerotic calcification of the abdominal aorta, without a demonstrated aneurysm. Normal inferior vena cava. Normal retroperitoneum. The urinary bladder is decompressed. Tiny fat-containing umbilical hernia. There are diffuse degenerative changes of the visualized lumbar spine, more severe distally. Degenerative disease of bilateral SI joints and hips. CT/Abdomen/Pelvis W IV Cont ONLY IMPRESSION: Gallstones with no signs of acute cholecystitis. Tiny left-sided simple renal cyst measuring 1 cm. Remainder of abdominal viscera are unremarkable. No acute appendicitis or bowel obstruction. Electronically Signed: Karoline Napier MD at 3:26 EDT ,
[2021-12-30 02:05] LABS: Color, Urine Yellow (Yellow); Glucose, Dipstick Normal (Normal); Ketone-Dipstick Negative (Negative); Leukocyte Esterase-Dipstick 25 /ul (Negative); Mucous, Urine 0 SEEN /hpf (<or=2+); Nitrite-Dipstick Negative (Negative); Occult Blood-Urine Negative /ul (Negative); Protein-Dipstick Negative (Negative); Red Blood Cells-Urine 0 SEEN /hpf (0-5); Squamous Epithelial Cells - UA 0 SEEN /hpf (0-5); Urine Bilirubin Dipstick Negative (Negative); Urine Clarity Clear (Clear); Urine Urobilinogen 4 mg/dl (Normal)
[2021-12-30 02:12] LABS: Bacteria RARE /hpf (None Seen); White Blood Cells 0-5 SEEN /hpf (0-5)
[2021-12-30 04:54] LABS: Reflex Lactate? Y
[2021-12-30] MEDS: HYDROmorphone 0.5 MG/0.5 ML SYRINGE IV (05:42)
[2021-12-30 06:00] LABS: Lactic Acid 2.2 mmol/L (0.4-1.9)
[2021-12-30] MEDS: Ciprofloxacin 400 MG/200 ML BAG 200 MG IV (06:23)
[2021-12-30] MEDS: metroNIDAZOLE 500 MG/100 ML BAG 100 MG IV (06:30)
--- NOTE | 2021-12-30 08:36 | ED.RN ---
Verbal ok by Dr. Ashraf to take his morning heart meds per patient request. Sotalol and Lisinopril taken.
== END 2021-12-30 09:11 | disposition short-term general hospital (02) ==
PROVIDERS: Emergency Provider Emergency Medicine; PCP Family Medicine; Visit Provider Emergency Medicine
DX: K80.20 Calculus of gallbladder without cholecystitis without obstruction (principal); I11.0 Hypertensive heart disease with heart failure; I50.32 Chronic diastolic (congestive) heart failure; I48.0 Paroxysmal atrial fibrillation; R74.8 Abnormal levels of other serum enzymes; E78.5 Hyperlipidemia, unspecified; G47.37 Central sleep apnea in conditions classified elsewhere; Z79.01 Long term (current) use of anticoagulants; Z79.899 Other long term (current) drug therapy; Z86.73 Personal history of transient ischemic attack (TIA), and cerebral infarction without residual deficits
CPT/HCPCS: 74176; 74177; 80053; 81001; 83605; 85025; 87811; 96361; 96365; 96366; 96367; 96375; 96376; 99285; J7030; Q9967; A4216; J0744; J2405

== ENCOUNTER → 2022-02-10 | Outpatient (CLI) | payer BC, SELFPAY ==
[2022-02-10 18:47] LABS: PSA,Total - Annual Screen 0.75 ng/mL (0.00-4.00)
== END | disposition home or self-care (01) ==
PROVIDERS: PCP Family Medicine; Visit Provider Nurse Practitioner Family
DX: Z12.5 Encounter for screening for malignant neoplasm of prostate (principal)
CPT/HCPCS: 36415; 84153; G0103

== ENCOUNTER → 2022-06-19 | Outpatient (CLI) | payer BC, SELFPAY ==
[2022-06-19 14:12] LABS: Amphetamine Urine VISTA NEGATIVE (<1000 ng/mL); Barbiturate Urine VISTA NEGATIVE (< 200 ng/mL); Benzodiazepine Urine VISTA NEGATIVE (< 200 ng/mL); Cocaine Urine VISTA NEGATIVE (< 300 ng/mL); Ecstacy Urine VISTA NEGATIVE (< 500 ng/mL); Methadone Urine VISTA NEGATIVE (< 300 ng/mL); PCP Urine VISTA NEGATIVE (< 25 ng/mL); THC Urine VISTA NEGATIVE (< 50 ng/mL); Vista UDS pH Range 5
== END | disposition home or self-care (01) ==
PROVIDERS: PCP Family Medicine; Referring Provider Anesthesiology Pain Medicine; Visit Provider Anesthesiology Pain Medicine
DX: F11.20 Opioid dependence, uncomplicated (principal)
CPT/HCPCS: 80307

== ENCOUNTER → 2022-12-08 | Outpatient (CLI) | payer BC, SELFPAY ==
[2022-12-08 18:09] LABS: Microalbumin:Creatinine Ratio 12.6 mg/g CRE (<30 mg/g CRE)
[2022-12-08 18:19] LABS: Anion Gap 7 (5-15); BUN 14 mg/dL (7-18); BUN/Creat Ratio 16.8 RATIO (10-20); Calcium,Total 8.9 mg/dL (8.5-10.1); Chloride 105 mmol/L (98-107); Creatinine, Serum 0.83 mg/dL (0.70-1.30); EST Glomerular Filtration Rate 98 mL/min (>60); Est Glom Filt Rate - Afr Amer 119 mL/min (>60); Glucose 100 mg/dL (74-106); Potassium 3.7 mmol/L (3.5-5.1); Sodium Level 138 mmol/L (136-145)
== END | disposition home or self-care (01) ==
LOC: MFPLAB 15:26
PROVIDERS: PCP Family Medicine; Visit Provider Family Medicine
DX: I10 Essential (primary) hypertension (principal)
CPT/HCPCS: 36415; 80048; 82043; 82570

== ENCOUNTER → 2023-01-06 | Outpatient (CLI) | payer BC, SELFPAY ==
[2023-01-06 16:04] LABS: Absolute Neutrophil Count 5.1 X10^3/uL (2.0-7.7); Basophil# 0.07 X10^3/uL; Basophil% 0.8 % (0-1); Eosinophils% 3.4 % (0-5); Hematocrit 45.8 % (40-54); Hemoglobin 15.2 g/dL (13.0-16.5); Lymphocyte % 29.1 % (19-41); Mean Corp Hgb Conc 33.2 g/dL (32-36); Mean Corpuscular Volume 93.3 fL (80-94); Mean Platelet Vol. 9.6 fl (6.2-12.0); NRBC Flagged by Analyzer 0 % (0-5); Neutrophil # 5.11 X10^3/uL (2.7-7.7); Neutrophil % 57.3 % (47-70); Platelet Count 211 K/mm3 (150-450); RBC Distribution Width CV 13.3 % (11.6-14.6); RBC Distribution Width SD 45.5 fl (35.1-43.9); Red Blood Count 4.91 M/mm3 (4.6-6.2); White Blood Count 8.9 K/mm3 (4.4-11.0)
[2023-01-06 16:30] LABS: BNP,B-Type NATRIURETIC PEPTIDE 104.6 pg/mL (0-100)
[2023-01-06 16:40] LABS: Anion Gap 3 (5-15); BUN 15 mg/dL (7-18); BUN/Creat Ratio 17.1 RATIO (10-20); Calcium,Total 9.1 mg/dL (8.5-10.1); Chloride 103 mmol/L (98-107); Creatinine, Serum 0.88 mg/dL (0.70-1.30); EST Glomerular Filtration Rate 93 mL/min (>60); Est Glom Filt Rate - Afr Amer 112 mL/min (>60); Glucose 97 mg/dL (74-106); Magnesium 2.2 mg/dL (1.6-2.6); Potassium 3.9 mmol/L (3.5-5.1); Sodium Level 137 mmol/L (136-145)
== END | disposition home or self-care (01) ==
LOC: LAB 15:46
PROVIDERS: PCP Family Medicine; Referring Provider Physician Assistant Medical; Visit Provider Physician Assistant Medical
DX: R06.00 Dyspnea, unspecified (principal); I11.0 Hypertensive heart disease with heart failure; I50.32 Chronic diastolic (congestive) heart failure; I48.0 Paroxysmal atrial fibrillation; E78.5 Hyperlipidemia, unspecified
CPT/HCPCS: 36415; 80048; 83735; 83880; 84443; 85025

== ENCOUNTER → 2023-01-15 | Outpatient (CLI) | payer BC, SELFPAY | END | disposition home or self-care (01) | LOC: SL 09:32 | PROVIDERS: PCP Family Medicine; Visit Provider Family Medicine | DX: Z00.00 Encounter for general adult medical examination without abnormal findings (principal) ==

== ENCOUNTER → 2023-01-20 | Outpatient (CLI) | payer BC, SELFPAY | END | disposition home or self-care (01) | PROVIDERS: PCP Family Medicine; Referring Provider Family Medicine; Visit Provider Family Medicine | DX: R06.00 Dyspnea, unspecified (principal); I48.91 Unspecified atrial fibrillation; I48.92 Unspecified atrial flutter | CPT/HCPCS: 93225; 93226 ==

== ENCOUNTER → 2023-02-04 | Outpatient (CLI) | payer BC, SELFPAY ==
--- NOTE | 2023-02-04 12:42 | ECHOCS_ITS ---
Version 2 Reason For Study: Dyspnea Procedure This was a 2D Doppler, Color Flow transthoracic echocardiogram. Technically difficult study due to patients body habitus. Exam performed in department. Left Ventricle Normal LV size. Left ventricular systolic function is lower limits of normal. The left ventricular ejection fraction is 45 %. There is mild to moderate global hypokinesis of the left ventricle. Right Ventricle Normal RV size. Normal systolic function. Atria The left atrium is not well visualized. The right atrium is not well visualized. Great Vessels Normal aortic root. Pericardium/Pleural No pericardial effusion. Medication 22 gauge I.V. with prn adaptor inserted into left arm. Diluted definity 2.5ml given slow IV push to enhance endocardial definition. MMode/2D Measurements & Calculations Ao root diam: 3.2 cm TAPSE: 2.4 cm LA dimension: 4.7 cm Time Measurements MV dec time: 0.32 sec Doppler Measurements & Calculations MV E max janeen: 86.8 cm/sec MV V2 max: 92.5 cm/sec MV P1/2t max janeen: 92.5 cm/sec MV A max janeen: 39.9 cm/sec MV max P.4 mmHg MV P1/2t: 104.0 msec MV E/A: 2.2 MV V2 mean: 45.8 cm/sec MV dec slope: 260.3 cm/sec2 MV mean P.0 mmHg MV V2 VTI: 32.5 cm MVA(P1/2t): 2.1 cm2 Ao V2 max: 158.0 cm/sec LV V1 max: 76.6 cm/sec PA V2 max: 99.5 cm/sec Ao max P.0 mmHg LV V1 max P.3 mmHg PA V2 mean: 67.6 cm/sec ECHO/Echo Complete W/ Contrast Interpretation Summary Normal LV size. Left ventricular systolic function is lower limits of normal. The left ventricular ejection fraction is 45 %. There is mild to moderate global hypokinesis of the left ventricle. Contrast injection was performed. Ordering Physician: Susie Neely Referring Physician: Tiarra Bravo M.D. Performed By: Temo Carter RCS
== END | disposition home or self-care (01) ==
PROVIDERS: PCP Family Medicine; Referring Provider Physician Assistant Medical; Visit Provider Physician Assistant Medical
DX: R06.00 Dyspnea, unspecified (principal)
CPT/HCPCS: 93306; Q9957; A4216; C8929

== ENCOUNTER → 2023-02-13 | Outpatient (CLI) | payer BC, SELFPAY ==
[2023-02-13 15:38] LABS: Anion Gap 3 (5-15); BUN 15 mg/dL (7-18); BUN/Creat Ratio 18.1 RATIO (10-20); Calcium,Total 9.1 mg/dL (8.5-10.1); Chloride 102 mmol/L (98-107); Cholesterol 144 mg/dL (200); Creatinine, Serum 0.83 mg/dL (0.70-1.30); EST Glomerular Filtration Rate 99 mL/min (>60); Est Glom Filt Rate - Afr Amer 120 mL/min (>60); Glucose 109 mg/dL (74-106); High Density Lipoprotein 35 mg/dL; PSA,Total - Annual Screen 0.61 ng/mL (0.00-4.00); Potassium 3.8 mmol/L (3.5-5.1); Sodium Level 137 mmol/L (136-145); Triglycerides 122 mg/dL; Very Low Density Lipoprotein 24 mg/dL (5-40)
== END | disposition home or self-care (01) ==
LOC: MTLAB 13:28
PROVIDERS: PCP Family Medicine; Referring Provider Family Medicine; Visit Provider Family Medicine
DX: Z00.00 Encounter for general adult medical examination without abnormal findings (principal); Z12.5 Encounter for screening for malignant neoplasm of prostate
CPT/HCPCS: 36415; 80048; 80061; 84153; G0103

== ENCOUNTER → 2023-04-01 | Outpatient (CLI) | payer BC, SELFPAY ==
[2023-04-01 10:56] LABS: Amphetamine Urine VISTA NEGATIVE (<1000 ng/mL); Barbiturate Urine VISTA NEGATIVE (< 200 ng/mL); Benzodiazepine Urine VISTA NEGATIVE (< 200 ng/mL); Cocaine Urine VISTA NEGATIVE (< 300 ng/mL); Ecstacy Urine VISTA NEGATIVE (< 500 ng/mL); Methadone Urine VISTA NEGATIVE (< 300 ng/mL); PCP Urine VISTA NEGATIVE (< 25 ng/mL); THC Urine VISTA NEGATIVE (< 50 ng/mL); Vista UDS pH Range 6
== END | disposition home or self-care (01) ==
PROVIDERS: PCP Family Medicine; Referring Provider Anesthesiology Pain Medicine; Visit Provider Anesthesiology Pain Medicine
DX: F11.20 Opioid dependence, uncomplicated (principal)
CPT/HCPCS: 80307

== ENCOUNTER → 2023-12-14 | Outpatient (CLI) | payer BC, SELFPAY ==
[2023-12-14 16:02] LABS: Anion Gap 6 (5-15); BUN 13 mg/dL (7-18); BUN/Creat Ratio 14.7 RATIO (10-20); Calcium,Total 9.5 mg/dL (8.5-10.1); Chloride 103 mmol/L (98-107); Cholesterol 134 mg/dL (200); Creatinine, Serum 0.88 mg/dL (0.70-1.30); EST Glomerular Filtration Rate 92 mL/min (>60); Est Glom Filt Rate - Afr Amer 111 mL/min (>60); Glucose 86 mg/dL (74-106); High Density Lipoprotein 33 mg/dL; Potassium 4.3 mmol/L (3.5-5.1); Sodium Level 138 mmol/L (136-145); Triglycerides 123 mg/dL; Very Low Density Lipoprotein 25 mg/dL (5-40)
[2023-12-14 17:11] LABS: Protein, Urine (Random) 24.8 mg/dL (<11.9); Protein:Creat Ratio 135 mg/g CRE (0-200)
[2023-12-14 17:37] LABS: Hemoglobin A1c 5.8 % (3.8-5.6)
== END | disposition home or self-care (01) ==
LOC: MFPLAB 11:26
PROVIDERS: PCP Family Medicine; Visit Provider Family Medicine
DX: I10 Essential (primary) hypertension (principal); E66.01 Morbid (severe) obesity due to excess calories
CPT/HCPCS: 36415; 80048; 80061; 82570; 83036; 84156; 84443

== ENCOUNTER → 2023-12-31 | Outpatient (CLI) | payer BC, SELFPAY ==
--- NOTE | 2023-12-31 09:37 | RAD_ITS ---
STUDY: X-RAY - LUMBAR SPINE REASON FOR EXAM: Male, 68 years old. Spondylosis without myelopathy or radiculopathy, lumbosacral belkys TECHNIQUE: 2 view(s) of the lumbar spine were obtained. COMPARISON: None FINDINGS: Normal lumbar lordosis. Mild dextro scoliosis centered at L3. Status post transpedicular fixation at L5/S1 with 10 mm of anterolisthesis of L5 on S1. Mild lateral subluxation throughout the lumbar spine. There is multilevel endplate spondylosis of the lumbar vertebrae. There is multi-level degenerative disc disease with multi-level disc space narrowing. There is multilevel facet hypertrophy. The soft tissue structures are unremarkable. RAD/Lumbar Spine 2 or 3 Views IMPRESSION: Status post transpedicular fixation at L5/S1 with anterolisthesis of L5 on S1. Mild dextroscoliosis with diffuse degenerative disc disease and subluxation throughout the lumbar spine. Electronically Signed: Marcos Busby MD at 14:12 EDT ,
== END | disposition home or self-care (01) ==
LOC: RAD 09:34
PROVIDERS: PCP Family Medicine; Referring Provider Anesthesiology Pain Medicine; Visit Provider Anesthesiology Pain Medicine
DX: M47.817 Spondylosis without myelopathy or radiculopathy, lumbosacral region (principal); M47.816 Spondylosis without myelopathy or radiculopathy, lumbar region
CPT/HCPCS: 72100

== ENCOUNTER → 2024-02-08 | Outpatient (CLI) | payer BC, SELFPAY ==
[2024-02-08 12:52] LABS: Anion Gap 6 (5-15); BUN 12 mg/dL (7-18); BUN/Creat Ratio 15.3 RATIO (10-20); Calcium,Total 8.9 mg/dL (8.5-10.1); Chloride 107 mmol/L (98-107); Creatinine, Serum 0.78 mg/dL (0.70-1.30); EST Glomerular Filtration Rate 105 mL/min (>60); Est Glom Filt Rate - Afr Amer 127 mL/min (>60); Glucose 91 mg/dL (74-106); Potassium 3.9 mmol/L (3.5-5.1); Sodium Level 138 mmol/L (136-145)
== END | disposition home or self-care (01) ==
PROVIDERS: PCP Family Medicine; Visit Provider Physician Assistant Medical
DX: I48.91 Unspecified atrial fibrillation (principal); I48.92 Unspecified atrial flutter; Z98.890 Other specified postprocedural states
CPT/HCPCS: 36415; 80048

== ENCOUNTER 2024-02-15 09:12 | Day surgery (SDC) | payer BC, SELFPAY ==
[2024-02-12 09:53] VITALS: BMI 56.0
--- NOTE | 2024-02-15 11:21 | PCM.OP.PRO2 ---
Problems Associated Problem List Diagnoses (1) Atrial fibrillation/flutter: Non-invasive Procedural Procedure Information Date of Procedure: 02/15/24 Pre-Procedure Diagnosis: Atrial flutter Post-Procedure Diagnosis: Same Procedure Performed:: DC cardioversion Procedure Time Out: 11:05 Procedure Start Time: 11:10 Procedure Stop Time: 11:15 Special Medications: Intravenous propofol 50 mg Description of procedure: Patient was brought to the cardiac catheterization lab in the postabsorptive nonsedated state. Informed consent was obtained anterior-posterior pads were applied. Patient was seen by Dr. Gibson of the critical care division. 50 mg intravenous propofol was administered and 300 J of synchronized biphasic DC cardioversion energy were applied with prompt reversal to sinus rhythm. Procedure findings: Catholic of sinus rhythm Complications Complications: No
--- NOTE | 2024-02-15 11:32 | PCM.OP.PRO2 ---
Procedures Pulmonary Pulmonary Procedures /Diagnostic Testin Con Sedation Non-invasive Procedural Procedure Information Description of procedure: CONSCIOUS SEDATION REPORT DATE OF SERVICE: February 15, 2024 BRIEF HISTORY OF PRESENT ILLNESS: The patient is a 68-year-old male who presented to [facility] to undergo an elective outpatient cardioversion due to underlying atrial fibrillation. The patient did undergo a prior cardioversion back in November 2020. He denied any prior anesthetic complications. The patient has a known history of obstructive sleep apnea and reports compliance with nocturnal PAP therapy. He is systemically anticoagulated on Xarelto with an ejection fraction last noted to be approximately 45%. PHYSICAL EXAMINATION: VITAL SIGNS: Reviewed and were acceptable. GENERAL: The patient is an obese male, in no apparent distress, speaking in full sentences. HEENT: Normocephalic, atraumatic. Mucous membranes are moist and pink. Good mouth opening noted. Trachea is midline. Good neck mobility. CHEST: S1, S2 irregularly irregular. No murmurs, rubs or gallops were noted. LUNGS: Clear to auscultation bilaterally without appreciable wheezes, rales or rhonchi. ABDOMEN: Soft, nontender, nondistended. Positive bowel sounds. EXTREMITIES: There is no clubbing or cyanosis. Lower extremity edema is present. ASA Class: II DESCRIPTION OF PROCEDURE: After confirmation of informed consent, the patient's anesthesia plan was reviewed in detail. Propofol was chosen. Risks and benefits were reviewed and the patient agreed to proceed. At 1108, the patient was given 50 mg of propofol. The patient achieved an appropriate level of sedation and was given a 300 joule synchronized cardioversion by Dr. Shore at the bedside. This was successful in achieving normal sinus rhythm. The patient was monitored until 1123, at which time he reached his baseline mental status and function. The patient tolerated the procedure well. COMPLICATIONS: None ESTIMATED BLOOD LOSS: None RECOMMENDATIONS: Okay to recover in usual fashion.
== END 2024-02-15 12:15 | disposition home or self-care (01) ==
PROVIDERS: PCP Family Medicine; Referring Provider Internal Medicine Cardiovascular Disease; Visit Provider Internal Medicine Cardiovascular Disease
DX: I48.91 Unspecified atrial fibrillation (principal); I48.92 Unspecified atrial flutter; Z79.01 Long term (current) use of anticoagulants; E66.9 Obesity, unspecified
CPT/HCPCS: 92960; 93005

== ENCOUNTER → 2024-04-12 | Outpatient (CLI) | payer OTHER, SELFPAY ==
[2024-04-12 12:55] LABS: Amphetamine Urine NEGATIVE (<1000 ng/mL); Barbiturate Urine VISTA NEGATIVE (< 200 ng/mL); Benzodiazepine Urine VISTA NEGATIVE (< 200 ng/mL); Cocaine Urine VISTA NEGATIVE (< 300 ng/mL); Ecstacy Urine VISTA NEGATIVE (< 500 ng/mL); Methadone Urine VISTA NEGATIVE (< 300 ng/mL); Opiates Urine NEGATIVE (< 300 ng/mL); PCP Urine NEGATIVE (< 25 ng/mL); THC Urine VISTA NEGATIVE (< 50 ng/mL)
[2024-04-12 13:30] LABS: Vista UDS pH Range 7
== END | disposition home or self-care (01) ==
PROVIDERS: PCP Family Medicine; Referring Provider Anesthesiology Pain Medicine; Visit Provider Anesthesiology Pain Medicine
DX: F11.20 Opioid dependence, uncomplicated (principal)
CPT/HCPCS: 80307

== ENCOUNTER 2024-08-07 11:08 | Inpatient (IN) | payer OTHER, MEDICARE, SELFPAY ==
[2024-08-07] VITALS (7 sets, daily range): BP systolic 109–135; BP diastolic 51–85; PULSE 78–87; RESP 13–19; TEMP 36.6–37.2; O2SAT 95–99; BMI 55.0; BMI 52.5
--- NOTE | 2024-08-07 11:46 | CT_ITS ---
PROCEDURE: BRAIN/HEAD WITHOUT CONTRAST 08/07/2024 REASON FOR EXAM: HEADACHE, ON XARELTO TECHNIQUE: Head CT without intravenous contrast. Coronal and Sagittal reconstruction series were provided. One or more dose reduction techniques were used (e.g., Automated exposure control, adjustment of the mA and/or kV according to patient size, use of iterative reconstruction technique. RADIATION DOSE SUMMARY: CTDlvol: 44.99 mGy DLP: 914.22 mGycm COMPARISON: None FINDINGS: Brain: No intra-axial or extra-axial hemorrhage. No mass, mass effect or midline shift. No obvious ischemia or infarct. CSF Spaces: Unremarkable Sinuses/Mastoids: Small mucous retention cysts in the left maxillary sinus. Remaining sinuses are clear. Bones: Unremarkable. CT/Brain/Head without Contrast IMPRESSION: No acute process detected. Reading [facility]
--- NOTE | 2024-08-07 11:46 | EKG12_ITS ---
Test Reason : SOB Blood Pressure : */* mmHG Vent. Rate : 78 BPM Atrial Rate : 375 BPM P-R Int : * ms QRS Dur : 100 ms QT Int : 432 ms P-R-T Axes : * -21 32 degrees QTcB Int : 492 ms Atrial flutter with variable A-V block with premature ventricular or aberrantly conducted complexes Low voltage QRS Nonspecific T wave abnormality Abnormal ECG Confirmed by Greyson Zimmerman ([id number]), video tape editor CINDY CARLTON ([id number]) on 08/08/2024 9:35:57 AM Referred By: David Stallworth Confirmed By: Greyson Zimmerman
--- NOTE | 2024-08-07 11:49 | EDS_ITS ---
HPI History of Present Illness Chief Complaint: Shortness of Breath Detail of Chief Complaint: Not feeling well x 5 days Informant: patient Narrative Narrative: Patient presents the emergency department with complaint of feeling poorly for the last 5 days. She has had some chills and some generalized weakness. Recently developed a cough and sore throat and headache. No known fever. Also feels short of breath with activity. He has history of A-fib with prior ablation but 2 months ago went back into A-fib. He is anticoagulated with Xarelto. He denies chest pain. [facility] Medical History (Reviewed 07/22/24 @ 16:16 by Taylor Patel [employer]SEM[employer] SUPERVISOR, [employer]SEM[employer] SUPERVISOR-C) Impacted cerumen of both ears Cholecystitis History of CVA (cerebrovascular accident) (04/2018) Persistent atrial fibrillation Lumbar stenosis without neurogenic claudication COVID-19 virus detected (02/17/20) Dysfunction of both eustachian tubes Diffuse otitis externa, left ear Severe headache Fatigue SOB (shortness of breath) Paroxysmal atrial fibrillation Central sleep apnea associated with atrial fibrillation Persistent atrial fibrillation Hyperlipidemia Chronic diastolic (congestive) heart failure Bilateral pulmonary embolism (05/02/18) Paroxysmal atrial fibrillation with rapid ventricular response (05/02/18) Obesity Central sleep apnea Essential (primary) hypertension Back pain Knee pain Home Medications ?Medication ?Instructions ?Recorded ?Last Taken ?Type cholecalciferol (vitamin D3) 25 25 mcg PO DAILY Unknown History mcg (1,000 unit) capsule multivitamin (Multiple Vitamins 1 tab PO DAILY 1 Unknown History tablet) latanoprost 0.005 % eye drops 1 drp ophthalmic (eye) D AILY 12/02/20 Unknown H istory tramadol 50 mg tablet 50 mg PO ONCE PRN pain 07/15 Unknown History vitamin B complex 1 tab PO DAILY 07/09/23 Unkn own History rivaroxaban 20 mg tablet (Xarelto) 20 mg PO .COMPLEX # 90 tabs 07/27/24 Unknown Rx furosemide 40 mg tablet 40 mg PO DAILY #90 tabs 07/01 11/24 Unknown Rx losartan 50 mg tablet 50 mg PO DAILY #90 tabs 07/01 11/24 Unknown Rx magnesium oxide 400 mg (241.3 mg 400 mg PO BID #180 ta bs 07/28/24 Unknown Rx magnesium) tablet sotalol 120 mg tablet 120 mg PO BID #180 tabs 07/01 11/24 Unknown Rx spironolactone 25 mg tablet 25 mg PO DAILY #90 tabs Unknown Rx Allergy/AdvReac Type Severity Reaction Status Date / Time Penicillins Allergy Anaphylaxis Verified 08/07/24 11:09 Sulfa (Sulfonamide Allergy Hives Verified 08/07/24 11:09 Antibiotics) Family History (Reviewed 07/22/24 @ 16:16 by Taylor Patel [employer] SUPERVISOR, [employer]SEMBLY SUPERVISOR-C) Father Cancer glioblastoma Mother No problems noted. Surgical History (Reviewed 07/22/24 @ 16:16 by Taylor Patel [employer]SEMBLY SUPERVISOR, [employer]SEM[employer] SUPERVISOR-C) History of cholecystectomy (12/31/21) History of radiofrequency ablation procedure for cardiac arrhythmia (11/29/20) History of colonoscopy (04/27/20) History of left heart catheterization (11/16/19) History of cardioversion (12/25/20) History of total right knee replacement History of tonsillectomy and adenoidectomy History of knee surgery History of back surgery Social History household members: spouse and children housing: house Smoking Status: Never smoker alcohol intake: never what type of physical activity do you participate in: none do you feel safe at home: Yes ROS ROS ED Review of Systems ROS Unobtainable: other Constitutional Constitutional ED: Reports chills and lethargy; Denies fever(s), sweats or weight loss Eyes Eyes: Denies blurry vision, change in vision or diplopia ENT ENT ED: Denies rhinorrhea or sore throat Cardiovascular Cardiovascular: Denies chest pain, orthopnea or racing heartbeat Respiratory/Chest Respiratory/Chest: Reports cough, dyspnea and dyspnea on exertion; Denies orthopnea or sputum Gastrointestinal Gastrointestinal: Denies abdominal pain, diarrhea, nausea or vomiting Genitourinary Genitourinary ED: Denies dysuria, hematuria or urinary frequency Musculoskeletal Musculoskeletal: Reports other; Denies arthralgias, back pain, myalgias or neck pain Integumentary Reports other Details: Redness and swelling to right leg ; Denies abscess, Abrasions or rash Neurologic Neurologic: Denies headache(s) or weakness Psychiatric Psychiatric: Denies anxiety, depression or suicidal thoughts Endocrine Endocrinology: Denies polydipsia, polyphagia or polyuria Hematologic/Lymphatic Hematologic/Lymphatic: Denies easy bleeding, easy bruising or lymphadenopathy Allergic/Immunologic Allergic/Immunologic ED: Denies mouth swelling, tongue swelling or urticaria EXAM Physical Exam Const Vital Signs: 08/07/24 11:09 08/07/24 11:25 08/07/24 12:08 Temperature 98.1 F Temperature Source Oral Pulse Rate 86 87 Respiratory Rate 16 19 H Respiratory Effort Short of Breath Labored Blood Pressure 135/85 H 109/61 Blood Pressure Mean 101 77 Pulse Ox 97 96 Oxygen Delivery Method Room Air Room Air Positive well nourished and well developed General Appearance ED: well developed and NAD HEENT Reports TM's clear and moist mucous membranes normocephalic and atraumatic; Negative for trauma or tenderness Tympanic Membrane ED: Yes TM's clear Eyes PERRL and EOMs intact bilaterally General Eye ED: Negative for pale conjunctiva or scleral icterus Neck no lymphadenopathy, supple and no JVD General: Negative for tenderness Chest Wall inspection of chest normal and palpation of chest normal Chest: Negative for tenderness Resp normal respiratory effort and clear to auscultation bilaterally Effort and Inspection: Negative for respiratory distress or pain with movement Auscultation: Negative for rhonchi, wheezes or diminished lung sounds Cardio S1 normal heart sound, S2 normal heart sound and no murmurs; Negative for regular rhythm Rate: tachycardic and other Rhythm: abnormal rhythm irregularly irregular Peripheral Pulses: pulses 2+ throughout GI normal to inspection, nondistended, normoactive bowel sounds, soft to palpation, non-tender, non-distended and no masses Back/Spine no CVA tenderness and no thoracic nor lumbar tenderness Extremity normal to inspection Extremity Narrative: Patient has +2 edema both lower extremities from below the knee to the toes. Patient has cellulitic changes to the right lower extremity with a odd almost vasculitic appearing rash to distal right lateral thigh extending to the right lateral calf. No vesicles noted. General Extremety ED: Negative for edema General Extremity: Negative for edema Neuro oriented x3, CN's II-XII intact bilaterally, no sensory deficits noted and gait normal Sensorium / Orientation: awake, alert, oriented to person, oriented to place and oriented to time Motor Exam: strength 5/5 throughout and strength abnormal Psych mental status grossly normal Skin no rashes or lesions noted and no wounds MDM MDM MDM Narrative Medical decision making narrative: Patient presents with chills x 5 days and now a red rash involving the right lower extremity with edema and some weeping from the lower leg. He denies fever at home. Clinically looks well. Has significant cellulitic changes of the right lower extremity. IV line established. CBC with differential obtained showing an 11.8 with hemoglobin 14.6 and platelet count of 165. Chemistries unremarkable. Troponin normal at 9 and BT [employer] SUPERVISOR was normal at 706. COVID flu and RSV testing was negative. Patient had chest x-ray that essentially was unremarkable. Blood cultures ordered. Patient started empirically on clindamycin as he has pen allergy and allergy to sulfa. Case will be discussed with hospitalist to evaluate patient for admission for cellulitis. We will outline the area of erythema with marker. Lab Data Attestation: I reviewed the patient's lab results. Labs: Laboratory Results - last 24 hr 08/07/24 08/07/24 11:24 11:54 WBC 11.8 H RBC 4.58 L Hgb 14.6 Hct 42.5 MCV 92.8 MCH 31.9 MCHC 34.4 RDW Std Deviation 44.8 H RDW Coeff of [place] 13.2 Plt Count 165 MPV 9.7 Immature Gran % (Auto) 0.400 Neut % (Auto) 76.2 H Lymph % (Auto) 14.0 L Schuyler % (Auto) 8.6 Eos % (Auto) 0.5 Baso % (Auto) 0.3 Absolute Neuts (auto) 9.0 H Absolute Lymphs (auto) 1.65 Nucleated RBC % 0 Sodium 135 Potassium 3.5 Chloride 100 Carbon Dioxide 21.5 Anion Gap 14 BUN 18 Creatinine 0.81 Estim Creat Clear Calc 163.39 Est GFR (MDRD) Non-Af 96 BUN/Creatinine Ratio 21.6 H Glucose 99 Lactic Acid 1.6 Calcium 9.3 Troponin T High Sens 9 NT pro BNP II 706 Radiography Diagnostic Testing: Clinical Impression(s) from Imaging Studies Brain CT 08/07/24 11:46 IMPRESSION: No acute process detected. [facility] 08/07/24 12:12 IMPRESSION: No Acute Findings. Moderate cardiomegaly. Reading Location: [facility] view chest x-ray obtained interpreted by myself no evidence of infiltrate or pneumothorax or acute disease process. Radiology in agreement felt there was moderate cardiomegaly. EKG Initial EKG: Attestation: I personally reviewed and interpreted this EKG as follows: Comments: Atrial flutter with variable block with rate of [address] changes Discharge Plan Dx/Rx/DC Orders Clinical Impression: Cellulitis of leg, right, Atrial fibrillation, Exertional dyspnea Disposition Disposition: Acute Care Hospital [facility]
--- OUTSIDE RECORDS SUMMARY | 2024-08-07 11:57 | XMS RPT_ITS | CCD ---
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 Tiarra Bravo Primary Care Provider [phone] Tiarra Bravo Referring Provider [phone] Terell Shore Attending Provider Tiarra Bravo Unavailable EMMANUEL COREA Attending Unavailable JOLLFRANCISCO, TIARRA Jimenez Referring Unavailable JOLLFRANCISCO, TIARRA Jimenez Primary Care Unavailable DEQUAN HUDSON Attending Unavailable JOLLFRANCISCO, TIARRA Jimenez Referring Unavailable JOLLIFF, TIARRA Jimenez Primary Care Unavailable UNKNOWN, PCP Primary Care Unavailable Narichania, Dr. Jerrell Osorio Referring Unavaila MD BEBETO Andersen Attending Unavailable Adolfo Enriquez Admitting Unavailable Jollfrancisco, Dr. Tiarra Gunderson Primary Care Unavail able Argelia Abad Admitting Unavailable Dinary, Argelia Attending Unavailable DinArgelia hendrix Referring Unavailable Shelly, Dr. Tiarra Jimenez Primary Care Provider Dr. Tiarra Bravo Referring Provider [phone] DIMPLE Roldan Attending Provider Dr. Terell Shore Attending Provider DIMPLE Roldan Referring Provider DIMPLE Dejesus Attending Provider Dr. Tiarra Bravo MD Primary Care Provider Dr. Demetria Varela MD Attending Provider Dr. Demetria Varela MD Referring Provider Dr. Tiarra Bravo MD Referring Provider Jorge MAHONEY-C, Taylor Attending Provider Jens BUNN, Dr. Anne Primary Care Provider Silviano, Terell Consulting Unavailable Silviano, Terell Attending Unavailable Jolliff, Tiarra S Primary Care Unavailable Silviano, Downing Referring Unavailable Silviano, Downing Consulting Unavailable Jolliff, Tiarra S Primary Care Unavailable Silviano, Terell Referring Unavailable Bob Gibson Attending Unavailable Jolliff, Tiarra S Referring Unavailable Jorge PRINCIPAL TRAINER, Taylor Attending Unavailable Colindres, Omid Primary Care Unavailable Jorge PRINCIPAL TRAINER, Taylor Attending Unavailable Jorge PRINCIPAL TRAINER, Taylor Referring Unavailable Colindres, Omid Primary Care Unavailable Jolliff, Tiarra S Primary Care Unavailable Jolliff, Tiarra S Attending Unavailable Jolliff, Tiarra S Primary Care Unavailable Basali, Ayman Attending Unavailable Basali, Ayman Referring Unavailable Silviano, Terell Attending Unavailable Jolliff, Tiarra S Primary Care Unavailable Silviano, Downing Referring Unavailable Jolliff, Tiarra S Primary Care Unavailable Susie Roldan Attending Unavail able Jolliff, Tiarra S Primary Care Unavailable Basali, Ayman Attending Unavailable Basali, Ayman Referring Unavailable Jolliff, Tiarra S Primary Care Unavailable Susie Roldan Attending Unavail able Jolliff, Tiarra S Referring Unavailable Susie Roldan Attending Unavail able Jolliff, Tiarra S Primary Care Unavailable Jolliff, Tiarra S Referring Unavailable Allergies Allergy Classification Reported Allergen(s) Allergy Type Date of Onset Reaction(s) Facility (11 sources) Penicillins Allergy to substance 2 Anaphylaxis [facility] (11 sources) Sulfonamides (Antibiotic) Allergy to substance 2 Hives [facility] (2 sources) Penicillins; Translations: [Penicillins] Allergy to drug (finding) [facility] Work Phone: (2 sources) Sulfonamides (Antibiotic); Translations: [Sulfa Drugs] Allergy to drug (finding) [facility] Work Phone: (1 source) Penicillins Drug allergy (disorder) 5 [facility] Repository (1 source) Sulfonamides (Antibiotic) Drug allergy (disorder) 5 [facility] Repository Medications Current Medications Medication Drug Class(es) Dates Sig (Normalized) Sig (Original) cholecalciferol 0.025 mg oral capsule (20 sources) Vitamin D Start: 07-25-2020 take 1 capsule by mouth once daily Cholecalciferol (Vitamin D3) 25 mcg (1,000 unit) capsule Active 25 ug PO DAILY July 25, 2020 12:00am Start: 11-17-2016 End: 07-25-2017 take 1 capsule by mouth once daily Cholecalciferol (Vitamin D3) 1,000 UNIT capsule Discontinued 1000 U PO DAILY November 17, 2016 12:00am July 25, 2017 10:08am furosemide 40 mg oral tablet (20 sources) Loop Diuretic Start: 05-04-2018 End: 04-22-2024 take 1 tablet by mouth once daily Furosemide 40 mg tablet Active 40 mg PO DAILY April 22, 2024 2:57pm latanoprost 0.05 mg/ml ophthalmic solution (20 sources) Prostaglandin Analog Start: 12-02-[address] 0.005 % drops Active 1 NMA OPHTHALMIC DAILY December 02, 2020 12:00am Start: 07-29-2019 End: 07-25-2020 Latanoprost 0.005 % drops Discontinued 1 NMA OPHTHALMIC DAILY April 25, 2020 4:11pm July 25, 2020 9:27am Start: 07-29-2019 End: 04-25-2020 take 1 mL into the eye(s) once daily as needed Latanoprost 0.005 % drops Discontinued 1 mL OPHTHALMIC DAILY as needed for eye pressure July 29, 2019 12:00am April 25, 2020 4:11pm take 1 drop(s) into the eye(s) at bedtime Latanoprost 0.005 % Ophthalmic Solution INSTILL 1 DROP IN BOTH EYES AT BEDTIME. Quantity: 0 Refills: 0 Ordered: 10-Jan-2022 DO Active losartan potassium 50 mg oral tablet (3 sources) Angiotensin 2 Receptor Brianna Start: 04-20-2023 End: 04-22-2024 take 1 tablet by mouth once daily Losartan 50 mg tablet Active 50 mg PO DAILY April 22, 2024 2:58pm magnesium oxide 400 mg oral tablet (6 sources) Start: 02-05-2023 End: 04-22-2024 take 1 tablet by mouth twice daily Magnesium Oxide 400 mg (241.3 mg magnesium) tablet Active 400 mg PO TWICE A DAY April 22, 2024 2:58pm Multivitamin (Multiple Vitamins) tablet (11 sources) Start: 07-25-2020 Multivitamin (Multiple Vitamins) tablet Active 1 {tbl} PO DAILY July 25, 2020 12:00am Start: 07-25-2020 take 1 tablet by keaton th once daily Multivitamin (Multiple Vitamins) tablet Active 1 TABLET PO DAILY July 24, 2020 11:00pm Start: 07-25-2020 take 1 tablet by keaton th once daily Multivitamin (Multiple Vitamins) tablet Active 1 TABLET PO DAILY July 25, 2020 12:00am rivaroxaban 20 mg oral tablet (20 sources) Factor Xa Inhibitor Start: 04-22-2024 End: 05-05-2024 take 1-833 tablets by mouth once daily at mealtime Rivaroxaban (Xarelto) 20 mg tablet Active 20 mg PO .COMPLEX May 05, 2024 1:01pm 20 mg orally every evening with food: Fax to [facility]: Start: 06-14-2019 End: 03-23-2024 take 1 tablet by mouth at dinner Rivaroxaban 20 mg tablet Discontinued 20 mg PO WITH DINNER September 25, 2023 10:18am March 23, 2024 9:32am must administer with evening meal Start: 01-26-2019 End: 01-26-2019 take 1 tablet by mouth once daily in the evening Rivaroxaban (Xarelto) 20 mg tablet Discontinued 20 mg PO EVERY EVENING January 26, 2019 1:00am January 26, 2019 3:28pm Xarelto 20 MG Or al Tablet Quantity: 0 Refills: 0 Ordered: 10-Jan-2022 DO Active sotalol hydrochloride 120 mg oral tablet (20 sources) Antiarrhythmic Start: 12-02-2020 End: 04-22-2024 take 1 tablet by mouth twice daily Sotalol 120 mg tablet Active 120 mg PO TWICE A DAY April 22, 2024 2:58pm spironolactone 25 mg oral tablet (10 sources) Aldosterone Antagonist Start: 01-20-2023 End: 04-22-2024 take 1 tablet by mouth once daily Spironolactone 25 mg tablet Active 25 mg PO DAILY April 22, 2024 2:58pm traMADol hydrochloride 50 mg oral tablet (8 sources) Opioid Agonist Start: 07-15-2022 take 1 tablet by mouth four times daily as needed for pain Tramadol 50 mg tablet Active 50 mg PO ONCE as needed for pain July 15, 2022 12:00am Takes 4 times daily as needed Vitamin B Complex tablet (1 source) Start: 07-09-2023 Vitamin B Complex tablet Active 1 {tbl} PO DAILY July 09, 2023 12:00am Completed/Discontinued Medications Medication Drug Class(es) Dates Sig (Normalized) Sig (Original) acetaminophen 325 mg / HYDROcodone bitartrate 5 mg oral tablet (20 sources) Opioid Agonist Start: 05-09-2020 End: 05-12-2020 Hydrocodone-Acetami nophen 1 TABLET tablet Discontinued 1 {tbl} PO EVERY 6 HOURS NEEDED as needed for Pain 02 01May 09, 2020 May 11, 2020 1:00am May 12, 2020 1:03am Start: 05-09-2020 End: 05-12-2020 take 1 tablet by mouth every six hours as needed Hydrocodone-Acetaminophen Discontinued 1 TABLET PO EVERY 6 HOURS NEEDED 12 May 09, 2020 May 12, 2020 12:03am Start: 01-03-2019 End: 01-09-2019 Hydrocodone-Acetaminophen 1 TABLET tablet Discontinued 1 {tbl} PO EVERY 8 HOURS as needed for Pain 10 January 03, 2019 January 05, 2019 1:00am January 09, 2019 1:10am Start: 01-03-2019 End: 01-09-2019 take 1 tablet by mouth every eight hours Hydrocodone-Acetaminophen Discontinued 1 TABLET PO EVERY 8 HOURS 10 January 03, 2019 January 09, 2019 12:10am Start: 01-24-2014 End: 02-09-2014 Hydrocodone-Acetaminophen 1 TABLET tablet Discontinued 1 {tbl} PO EVERY 4 HOURS NEEDED as needed for Pain January 24, 2014 1:00am February 09, 2014 9:01am Start: 01-24-2014 End: 02-09-2014 take 1 tablet by mouth every four hours as needed Hydrocodone-Acetaminophen Discontinued 1 TABLET PO EVERY 4 HOURS NEEDED January 24, 2014 12:00am February 09, 2014 8:01am [id number] actuat albuterol 0.09 mg/actuat metered dose inhaler (11 sources) beta2-Adrenergic Agonist Start: 05-02-2018 End: 05-26-2018 Albuterol Sulfate 1 INHALER inhaler Discontinued 2 NMA INHALATION EVERY 4 HOURS NEEDED as needed for Sob &/Or Wheezing May 02, 2018 1:00am May 26, 2018 3:35pm Start: 05-02-2018 End: 05-26-2018 take 1 puff(s) by inhalation every four hours as needed Albuterol Sulfate Discontinued 2 PUFF INHALATION EVERY 4 HOURS NEEDED May 02, 2018 12:00am May 26, 2018 2:35pm apixaban 5 mg oral tablet (20 sources) Factor Xa Inhibitor Start: 03-23-2024 End: 04-22-2024 take 1 tablet by mouth twice daily Apixaban (Eliquis) 5 mg tablet Discontinued 5 mg PO TWICE A DAY 60 March 23, 2024 1:00am April 22, 2024 2:56pm Start: 03-15-2019 End: 06-14-2019 take 1 tablet by mouth twice daily Apixaban 5 mg tablet Discontinued 5 mg PO TWICE A DAY 180 June 13, 2019 10:04am June 14, 2019 10:44am Start: 05-26-2018 End: 05-27-2018 take 10 mg by mouth twice daily, then take 5 mg by mouth twice daily Apixaban Discontinued 5 MG PO TWICE A DAY 60 May 26, 2018 3:22pm May 27, 2018 2:46pm Patient will take 10 mg twice daily for 5 days followed by 5 mg twice daily. Start: 05-03-2018 End: 05-27-2018 take 2 tablets by mouth twice daily, then take 1 tablet by mouth twice daily Apixaban 5 mg tablet Discontinued 5 mg PO TWICE A DAY 60 May 26, 2018 4:22pm May 27, 2018 3:46pm Patient will take 10 mg twice daily for 5 days followed by 5 mg twice daily. Start: 05-03-2018 End: 05-26-2018 take 10 mg by mouth twice daily, then take 5 mg by mouth twice daily Apixaban Discontinued 10 MG PO TWICE A DAY 80 May 03, 2018 12:00am May 26, 2018 3:10pm Patient will take 10 mg twice daily for 5 days followed by 5 mg twice daily. aspirin 81 mg delayed release oral tablet (20 sources) Platelet Aggregation Inhibitor, Nonsteroidal Anti-inflammatory Drug Start: 05-02-2018 End: 05-04-2018 take 1 tablet by mouth once daily Aspirin (Aspir-81) 81 MG Tablet.Dr Discontinued 81 mg PO DAILY May 02, 2018 1:00am May 04, 2018 12:17pm Start: 04-03-2015 End: 07-25-2017 take 1 tablet by mouth once daily Aspirin 81 MG tablet,chewable Discontinued 81 mg PO DAILY@0800 April 03, 2015 1:00am July 25, 2017 10:07am celecoxib 200 mg oral capsule (11 sources) Nonsteroidal Anti-inflammatory Drug Start: 11-18-2016 End: 07-25-2017 take 1 capsule by mouth twice daily Celecoxib 200 MG capsule Discontinued 200 mg PO TWICE A DAY November 18, 2016 12:00am July 25, 2017 10:07am codeine phosphate 2 mg/ml / promethazine hydrochloride 1.25 mg/ml oral solution (11 sources) Opioid Agonist, Phenothiazine Start: 05-02-2018 End: 05-26-2018 take 1 mL by mouth every four hours as needed for cough Promethazine-Code ine 5 ML syrup Discontinued 5 mL PO EVERY 4 HOURS NEEDED as needed for Cough May 02, 2018 1:00am May 26, 2018 3:35pm Start: 05-02-2018 End: 05-26-2018 take 1 mL by mouth every four hours as needed Promethazine-Codeine Discontinued 5 ML PO EVERY 4 HOURS NEEDED May 02, 2018 12:00am May 26, 2018 2:35pm cyclobenzaprine hydrochloride 10 mg oral tablet (11 sources) Muscle Relaxant Start: 05-06-2020 End: 07-03-2021 take 1 tablet by mouth twice daily as needed for pain Cyclobenzaprine 10 MG tablet Discontinued 10 mg PO TWICE DAILY NEEDED as needed for back pain May 06, 2020 1:00am July 03, 2021 1:03pm dexamethasone 6 mg oral tablet (11 sources) Corticosteroid Start: 03-10-2020 End: 03-20-2020 take 1 tablet by mouth twice daily Dexamethasone 6 mg tablet Discontinued 6 mg PO TWICE A DAY 19 12March 10, 2020 1:00am March 19, 2020 1:00am March 20, 2020 1:03am flecainide acetate 150 mg oral tablet (20 sources) Antiarrhythmic Start: 07-07-2020 End: 12-02-2020 take 1 tablet by mouth every twelve hours Flecainide 150 mg tablet Discontinued 150 mg PO Q12H 60 October 31, 2020 11:07am December 02, 2020 1:12pm Start: 06-22-2020 End: 07-07-2020 take 1 tablet by mouth every twelve hours Flecainide 100 mg tablet Discontinued 100 mg PO Q12H 60 June 22, 2020 12:00am July 07, 2020 9:47am 12 hr guaiFENesin 1200 mg / pseudoephedrine hydrochloride 120 mg extended release oral tablet (11 sources) alpha-Adrenergic Agonist Start: 05-02-2018 End: 05-26-2018 Pseudoephedrine-Guaifenesin 1 EACH tablet extended release 12 hr Discontinued 1 NMA PO NEEDED as needed for Congestion May 02, 2018 1:00am May 26, 2018 3:35pm Start: 05-02-2018 End: 05-26-2018 Pseudoephedrine-Guaifenesin Discontinued 1 EACH PO NEEDED May 02, 2018 12:00am May 26, 2018 2:35pm hydrocortisone 10 mg/ml / neomycin 3.5 mg/ml / polymyxin b [id number] unt/ml otic suspension (11 sources) Aminoglycoside Antibacterial, Polymyxin-class Antibacterial, Corticosteroid Start: 12-10-2019 End: 12-20-2019 Cdfjemrf-Dfrxaefam-Pg 3.5-10,000-1 mg/mL-unit/mL-% drops,suspension Discontinued 3 NMA OTIC Q4H 10 December 10, 2019 12:00am December 19, 2019 12:00am December 20, 2019 12:03am apply to (cotton) wick; replace wick every 24 hours Start: 12-10-2019 End: 12-20-2019 Eqwsspce-Abcklmqpl-Df Discon tinued 3 DRP OTIC Q4H 12 09December 09, 2019 11:00pm December 19, 2019 11:03pm apply to (cotton) wick; replace wick every 24 hours lisinopril 10 mg oral tablet (20 sources) Angiotensin Converting Enzyme Inhibitor Start: 07-15-2022 End: 02-05-2023 take 1 tablet by mouth once daily Lisinopril 10 mg tablet Discontinued 10 mg PO DAILY July 15, 2022 3:15pm February 05, 2023 1:49pm Start: 05-04-2018 End: 07-15-2022 Lisinopril 20 mg tablet Disc ontinued 0 .ROUTE .COMPLEX 90 April 29, 2021 9:07am July 15, 2022 3:16pm TAKE 1 TABLET DAILY Start: 10-13-2013 End: 05-04-2018 take 1 tablet by mouth once daily Lisinopril 40 MG tablet Discontinued 40 mg PO DAILY October 13, 2013 12:00am May 04, 2018 12:13pm meloxicam 15 mg oral tablet (20 sources) Nonsteroidal Anti-inflammatory Drug Start: 04-25-2020 End: 07-25-2020 take 1 tablet by mouth once daily Meloxicam 15 mg tablet Discontinued 15 mg PO DAILY April 25, 2020 1:00am July 25, 2020 9:27am Start: 10-13-2013 End: 02-09-2014 take 1 tablet by mouth once daily Meloxicam 15 MG tablet Discontinued 15 mg PO DAILY October 13, 2013 12:00am February 09, 2014 9:01am methylPREDNISolone 4 mg oral tablet (11 sources) Corticosteroid Start: 11-18-2016 End: 07-25-2017 Methylprednisolone 4 MG tablet Discontinued 4 mg PO DIRECTED November 18, 2016 12:00am July 25, 2017 10:07am metoprolol tartrate 50 mg oral tablet (20 sources) beta-Adrenergic Brianna Start: 05-04-2018 End: 12-02-2020 take 1 tablet by mouth twice daily Metoprolol Tartrate 50 mg tablet Discontinued 50 mg PO TWICE A DAY 180 September 24, 2020 2:30pm December 02, 2020 1:14pm Multivitamin 1 EACH tablet (1 source) Start: 04-03-2015 End: 12-10-2019 Multivitamin 1 EACH tablet Discontinued 1 NMA PO DAILY April 03, 2015 1:00am December 10, 2019 9:40am Multivitamin preparation (10 sources) Start: 04-03-2015 End: 12-10-2019 Multivitamin Discontinued 1 EACH PO DAILY April 03, 2015 12:00am December 10, 2019 8:40am Start: 04-03-2015 End: 12-10-2019 Multivitamin Discontinued 1 EACH PO DAILY April 03, 2015 1:00am December 10, 2019 9:40am pantoprazole 40 mg delayed release oral tablet (11 sources) Proton Pump Inhibitor Start: 12-02-2020 End: 07-03-2021 take 1 tablet by mouth once daily Pantoprazole 40 mg tablet,delayed release (DR/EC) Discontinued 40 mg PO DAILY December 02, 2020 12:00am July 03, 2021 1:02pm predniSONE 20 mg oral tablet (11 sources) Start: 05-02-2018 End: 05-04-2018 take 1 tablet by mouth once daily Prednisone 20 MG tablet Discontinued 20 mg PO DAILY May 02, 2018 1:00am May 04, 2018 12:14pm sacubitril 49 mg / valsartan 51 mg oral tablet (4 sources) Angiotensin 2 Receptor Brianna Start: 02-05-2023 End: 04-20-2023 Sacubitril-Valsartan (Entresto) 49-51 mg tablet Discontinued 1 {tbl} PO TWICE A DAY 180 February 05, 2023 1:00am April 20, 2023 2:07pm Problems Active Problems Problem Classification Problem Date Documented Da te Episodic/Chronic Abdominal pain (11 sources) Abdominal pain; Translations: [Unspecified abdominal pain] 01-07-2022 Episodic Allergic reactions (2 sources) Allergy status to penicillin; Translations: [Allergy status to sulfonamides status] Onset: 2 Episodic Anxiety disorders (1 source) Anxiety disorder, unspecified; Translations: [Anxiety disorder, unspecified] Onset: 2 Chronic Biliary tract disease (5 sources) Disorder of biliary tract; Translations: [Unspecified disorder of biliary tract] Onset: 3 Chronic Biliary tract disease (20 sources) Biliary calculus; Translations: [Calculus of gallbladder without cholecystitis without obstruction] Onset: 2 Episodic Cardiac dysrhythmias (20 sources) Central sleep apnea syndrome; Translations: [Unspecified atrial fibrillation] Onset: 1 Chronic Comment on above: RFA 11/29/20 Congestive heart failure; nonhypertensive (19 sources) Chronic diastolic heart failure; Translations: [Chronic diastolic (congestive) heart failure] Onset: 3 07-13-2018 Chronic Disorders of lipid metabolism (12 sources) Hyperlipidemia; Translations: [Hyperlipidemia, unspecified] Onset: 2 11-15-2019 Chronic Essential hypertension (20 sources) Essential hypertension; Translations: [Essential (primary) hypertension] Onset: 4 Chronic Gastroduodenal ulcer (except hemorrhage) (2 sources) Gastric ulcer; Translations: [Gastric ulcer, unspecified as acute or chronic, without mention of hemorrhage or perforation, without mention of obstruction] Chronic Hypertension with complications and secondary hypertension (1 source) Hypertensive heart disease with heart failure; Translations: [Hypertensive heart disease with heart failure] Onset: 3 Chronic Nonspecific chest pain (20 sources) Atypical chest pain; Translations: [Other chest pain] 02-21-2015 Episodic Other connective tissue disease (1 source) Presence of right artificial knee joint; Translations: [Presence of right artificial knee joint] Onset: 2 Chronic Other disorders of stomach and duodenum (1 source) Other diseases of stomach and duodenum; Translations: [Other diseases of stomach and duodenum] Onset: 3 Episodic Other ear and sense organ disorders (11 sources) Diffuse otitis externa, left ear; Translations: [Diffuse otitis externa of left ear] 04-24-2020 Episodic Other ear and sense organ disorders (4 sources) Impacted cerumen; Translations: [Impacted cerumen, bilateral] 02-09-2023 Episodic Other ear and sense organ disorders (3 sources) Impacted cerumen, bilateral; Translations: [Impacted cerumen] 02-09-2023 Episodic Other gastrointestinal disorders (2 sources) Encounter for fitting and adjustment of other gastrointestinal appliance and device; Translations: [Encounter for fit/adjst of GI appliance and device] Onset: 3 Episodic Other liver diseases (11 sources) Elevated liver enzymes level; Translations: [Abnormal levels of other serum enzymes] 01-07-2022 Episodic Other liver diseases (2 sources) Jaundice; Translations: [Jaundice, unspecified, not of ] Episodic Other liver diseases (2 sources) Enzyme level - finding; Translations: [Other nonspecific abnormal serum enzyme levels] Episodic Other lower respiratory disease (20 sources) Dyspnea; Translations: [Dyspnea, unspecified] 12-24-2020 Episodic Other lower respiratory disease (8 sources) Dyspnea, unspecified; Translations: [Other respiratory abnormalities] Onset: 5 01-06-2023 Episodic Other nutritional; endocrine; and metabolic disorders (1 source) Morbid (severe) obesity due to excess calories; Translations: [Morbid (severe) obesity due to excess calories] Onset: 3 Chronic Other nutritional; endocrine; and metabolic disorders (1 source) Body mass index (BMI) 45.0-49.9, adult; Translations: [Body mass index [BMI] 45.0-49.9, adult] Onset: 3 Chronic Other nutritional; endocrine; and metabolic disorders (1 source) Body mass index (BMI) 50.0-59.9, adult; Translations: [Body mass index [BMI] 50.0-59.9, adult] Onset: 2 Chronic Other nutritional; endocrine; and metabolic disorders (1 source) Other disorders of bilirubin metabolism; Translations: [Other disorders of bilirubin metabolism] Onset: 2 Chronic Otitis media and related conditions (11 sources) Dysfunction of eustachian tube; Translations: [Other specified disorders of Eustachian tube, bilateral] 04-24-2020 Episodic Residual codes; unclassified (1 source) Other specified postprocedural states; Translations: [Other specified postprocedural states] Onset: 5 Episodic Spondylosis; intervertebral disc disorders; other back problems (1 source) Spondylosis without myelopathy or radiculopathy, lumbosacral region; Translations: [Spondylosis without myelopathy or radiculopathy, lumbosacral region] Onset: 4 Chronic Spondylosis; intervertebral disc disorders; other back problems (20 sources) Spasm of back muscles; Translations: [Muscle spasm of back] 01-04-2019 Episodic Substance-related disorders (1 source) Opioid dependence, uncomplicated; Translations: [Opioid dependence, uncomplicated] Onset: 5 Chronic Unclassified (5 sources) Atrial fibrillation and flutter ; Translations: [Atrial fibrillation/flutter] Onset: 1 06-26-2021 Unclassified (2 sources) Other persistent atrial fibrillation; Translations: [Other persistent atrial fibrillation] Onset: 1 Unclassified (2 sources) Atrial fibrillation/flutter; Translations: [Z98.890 - Other specified postprocedural states] Unclassified (1 source) History of radiofrequency ablation procedure for cardiac arrhythmia Past or Other Problems Problem Classification Problem Date Documented Date Episodic/Chronic Other aftercare (2 sources) Other custodial (current) drug therapy; Translations: [Other custodial (current) drug therapy] Onset: 11-28-2020 Episodic Other circulatory disease (11 sources) History of cerebrovascular accident; Translations: [Personal history of transient ischemic attack (TIA), and cerebral infarction without residual deficits] Onset: 04-30-2018 01-13-2022 Episodic Other circulatory disease (1 source) Personal history of transient ischemic attack (TIA), and cerebral infarction without residual deficits; Translations: [Prsnl hx of TIA (TIA), and cereb infrc w/o resid deficits] Onset: 01-03-2022 Episodic Pulmonary heart disease (12 sources) Pulmonary embolism; Translations: [Other pulmonary embolism without acute cor pulmonale] Onset: 05-02-2018 01-13-2022 Episodic Residual codes; unclassified (12 sources) History of radiofrequency ablation operation for arrhythmia; Translations: [Other specified postprocedural states] Onset: 11-29-2020 12-25-2020 Episodic Comment on above: Wide area circumfere ntial ablation was performed successfully using RF ablation energy and without complications, with confirmation of PV isolation with the circular mapping catheter for management of atrial fibrillation. 11/29/20 Viral infection (11 sources) COVID-19; Translations: [Severe acute respiratory syndrome coronavirus 2 (SARS-CoV-2) detected] Onset: 02-17-2020 12-02-2020 Episodic Results Test Name Value Interpretation Reference Range Facility 12 Lead EKG performed by [facility] on 07-19-2024 12 Lead EKG performed by [facility] [address] [place] [address] 12 Lead EKG performed by [facility] 07/19/24 0706 MR#: [id number] Acct: [id number] Name: RICHI HU Rep #: [id number] : [id number] From: Taylor Patel NP PRINCIPAL TRAINER-C Attending Dr: Taylor Patel PRINCIPAL TRAINER-C Status: DEP A DEEP Ordering Dr: Taylor Patel NP PRINCIPAL TRAINER-C Date: 07/19/24 Location: [facility] Sex: M C Admitted: BMS/12 Lead EKG performed by [facility] ECG Report Interpretation At rial flutter-fibrillation -Poor R-wave progression -may be secondary to pulmonary disease consider old anterior infarct. - Nonspecific T-abnormality. Low voltage with rightward P-axis and rotation -possible pulmonary disease. ABNORMAL Electronically signed on 07/20/2024 at 09:41 by Terell [employer] Software Version [id number] 07/20/24 0942 Date Taylor GARCIA CC: Dr. Omid Colindres MD Date Dictated: 07/19/24705 Date Transcribed: 07/19/24705 Environmental Intern: GLYNN Signed Normal [facility] Cardiology Visit Reporton Cardiology Visit Report [facility] [address] [place] [address] OFFICE VISIT Date of Service: 07/19/24 MR#: [id number] Acct: [id number] Name: RICHI HU Rep #: [id number] : 1955 Provider: JOSE torre Age/Sex: 68/M Location: [facility] Status: Signed HPI HPI History of Present Illness Details: Richi Hu is a 68-year-old man who presents today for cardiovascular follow-up visit. He has a history of atrial fibrillation and a previous history of bilateral pulmonary emboli diagnosed in April 2018. He was hospitalized at that time underwent an echocardiogram which demonstrated an ejection fraction of 53%. He was also noted to be hypertensive and had obstructive sleep apnea. He underwent DC cardioversion in June 2018. He presented in January 2020 with chest discomfort had a 9 beat run of wide-complex tachycardia and underwent a cardiac catheterization that same month in November 2019 demonstrating an ejection fraction of 60% and normal coronary arteries. He was treated aggressively for his blood pressure and unfortunately in 2019 did sustain COVID-19 infection. He had a recurrence of his atrial fibrillation in 2020 and underwent radiofrequency ablation in October of that year. He returned in November with atrial fibrillation and underwent DC cardioversion. An echocardiogram at that time demonstrated an ejection fraction of 50%. He was then sent back for repeat ablation and a wide area of circumferential ablation as well as a roofline ablation was performed he was put on sotalol 120 mg twice a day as well asked to continue anticoagulation. From a cardiac standpoint, the patient is doing well. He denies any palpitations, chest pain, pressure or heaviness. He does acknowledge SOB with exertion. He denies Orthopnea, and PND. He does not have bleeding issues; no blood in urine, stool, or nosebleeds. He does acknowledge a decrease in energy level. He denies myalgias, or claudication. He does have bilateral lower extremity edema. He does not have sudden weight gain. He does have occasional lightheadedness. He denies dizziness, syncopal or near syncopal episodes, and headaches. Intake Vital Signs 01/25/24 09:52 02/15/24 09:34 07/19/24 07:07 Height 6 ft 5 in 6 ft 3 in 6 ft 3 in Weight: 450 lb BMI 56.2 BP 127/83 H Blood Pressure Location Lt brachial Position Sitting Respiration 22 H Pulse 72 Pulse Source Monitor Pulse Oximetry (%) 96 Intake Visit Reasons: 6 M FU Assistant Press Operator Required: No Is patient in pain?: No Allergies Penicillins Allergy (Verified 07/19/24 10:51) Anaphylaxis Sulfa (Sulfonamide Antibiotics) Allergy (Verified 07/19/24 10:51) Hives Medications ???Medication ???Instructions ???Recorded ???Confirmed ???Type cholecalciferol (vitamin D3) 25 25 mcg PO DAILY 07/25/20 07/19/24 History mcg (1,000 unit) capsule multivitamin (Multiple Vitamins 1 tab PO DAILY 07/25/20 07/19/24 H istory tablet) latanoprost 0.005 % eye drops 1 drp ophthalmic (eye) DAILY 12/0207/19/24 History tramadol 50 mg tablet 50 mg PO ONCE PRN pain 07/15/22 History vitamin B complex 1 tab PO DAILY 07/09/23 07/19/24 H istory furosemide 40 mg tablet 40 mg PO DAILY #90 tabs 04/22/24 0 5/20/25 Rx losartan 50 mg tablet 50 mg PO DAILY #90 tabs 04/22/24 0 07/19/24 Rx magnesium oxide 400 mg (241.3 mg 400 mg PO BID #180 tabs 04/22/24 0 07/19/24 Rx magnesium) tablet sotalol 120 mg tablet 120 mg PO BID #180 tabs 04/22/24 0 07/19/24 Rx spironolactone 25 mg tablet 25 mg PO DAILY #90 tabs 04/22/24 0 07/19/24 Rx rivaroxaban 20 mg tablet (Xarelto) 20 mg PO .COMPLEX #90 tabs 05/0507/19/24 Rx Ejection fraction %: 45 Have you fallen in the past year?: Yes PFSH Medical History Impacted cerumen of both ears Cholecystitis History of CVA (cerebrovascular accident) (04/2018) Persistent atrial fibrillation Lumbar stenosis without neurogenic claudication COVID-19 virus detected (02/17/20) Dysfunction of both eustachian tubes Diffuse otitis externa, left ear Severe headache Fatigue SOB (shortness of breath) Paroxysmal atrial fibrillation Central sleep apnea associated with atrial fibrillation Persistent atrial fibrillation Hyperlipidemia Chronic diastolic (congestive) heart failure Bilateral pulmonary embolism (05/02/18) Paroxysmal atrial fibrillation with rapid ventricular response (05/02/18) Obesity Central sleep apnea Essential (primary) hypertension Back pain Knee pain Surgical History History of cholecystectomy (12/31/21) History of radiofrequency ablation procedure for cardiac arrhythmia (11/29/20) History of colonoscopy (04/03 (more content not included)... Normal [facility] L3410.9998on 04-17-2024 [facility] Misc. Normal [facility] Comment on above: Order Comment: [id number] URIN TOX Result Comment: TEST RESULTS LIMITS Tramadol, Urine Tramadol Positive Vsaiyv=075 Tramadol Conf, MS, UR 205 ng/mL Wwsmck=487 Tramadol detected; this finding can be consistent with use of medications that include Ultram, Topalgic, Tradol, Zydol, or generic formulations. Drugs listed are apprenticeship training representative of common sources of the compound detected and are not intended to include all possible sources. Please Note: Drug test results should be interpreted in the context of clinical information. Patient metabolic variables, specific drug chemistry, and specimen characteristics can affect test outcome. Technical consultation is available if a test result is inconsistent with an expected outcome. Email: [email or web address] TESTING PERFORMED AT [facility]. ORIGINAL REPORT ON FILE IN LAB CONTAINS ADDITIONAL TEST SITE INFORMATION. Performed By: #### L 3410.9998, L505.5000 #### [facility] [address] [place], [place] [address], [address] [facility] Normal [facility] Comment on above: Order Comment: [id number] TRAMIADOL Result Comment: [id number] 6+OXYCODONE-BUND (ng/mL) DRUG RESULT SCREEN CUTOFF ____ Amphetamines,Urine Negative ng/mL 1000 Amphetamine test includes Amphetamine and Methamphetamine. Barbiturates Negative ng/mL 200 Benzodiazepines Negative ng/mL 200 Cannabinoid Negative ng/mL 20 Cocaine (Metab) Negative ng/mL 300 Opiates Negative ng/mL 300 Opiates test includes Codeine, Morphine, Hydromorphone, Hydrocodone. Oxycodone/Oxymorphone,Urine Negative ng/mL 300 Test includes Oxycodone and Oxymorphone. TESTING PERFORMED AT [facility]. ORIGINAL REPORT ON FILE IN LAB CONTAINS ADDITIONAL TEST SITE INFORMATION. Performed By: #### L 3410.9998 #### [facility] [address] [place], [place], [id number] No Panel InformationOrdered By: Demetria Varela on 04-12-2024 Urine Drug Screen Comment [facility] Comment on above: CONFIRMATORY TESTING FOR ALL POSITIVE URINE DRUG SCREENRESULTS WILL ONLY BE SENT OUT UPON PHYSICIAN ORDER. VISTA Urine Drug Screen methods provide only preliminaryanalytical test results. A more specific alternate chemicalmethod must be used in order to obtain a confirmedanalytical result. Gas chromatography/mass spectrometery(GC/MS) is the preferred confirmatory method. Clinicalconsideration and professional judgement should be appliedto any drug of abuse test result, particularly whenpreliminary positive results are used. URINE TCA TESTING MUST BE ORDERED SEPARATELY. USE TESTMNEMONIC: UTCA Quantitative urine opiates m easurementOrdered By: Demetria Varela on 04-12-2024 Opiates Ql (U) Negative < 300 ng/mL [facility] Urine Drug Screen (VISTA)on 04-12-2024 VISTA UDS PH 7 Normal [facility] Comment on above: Order Comment: MED T OX Performed By: #### L 3410.9998, L505.5000 #### [facility] [address] [facility]. [place], [place], [id number] Urine amphetamine measuremen tOrdered By: Demetria Varela on 04-12-2024 Amphetamines Ql (U) Negative <1000 ng/mL [facility] Urine benzodiazepine levelOr dered By: Demetria Varela on 04-12-2024 Benzodiazepines Ql (U) Negative < 200 ng/mL [facility] Urine cocaine levelOrdered B y: Demetria Varela on 04-12-2024 Cocaine Ql (U) Negative < 300 ng/mL [facility] Urine wleqa-9-rzpeiszjuzabcu abinol (THC) measurementOrdered By: Demetria Varela on 04-12-2024 Cannabinoids Screen Ql (U) Negative < 50 ng/mL [facility] Urine phencyclidine (PCP) de tectionOrdered By: Demetria Varela on 04-12-2024 Phencyclidine Ql (U) Negative < 25 ng/mL [facility] 12 Lead EKG performed by [facility] on 02-22-2024 12 Lead EKG performed by [facility] [address] [place] [address] 12 Lead EKG performed by [facility] 02/22/24905 MR#: [id number] Acct: [id number] Name: RICHI HU Rep #: [id number] : 1955 68 From: Susie May Attending Dr: DIMPLE Arndt Status: DEP AMB Ordering Dr: Susie Neely Date: 01/31 05/23 Location: [facility] Sex: M C Admitted: [facility]/12 Lead EKG performed by [facility] ECG Report Interpretation Si nus Rhythm -Poor R-wave progression -may be secondary to pulmonary disease consider old anterior infarct. - Nonspecific T-abnormality. Low voltage with rightward P-axis and rotation -possible pulmonary disease. ABNORMAL Electronically signed on 02/25/2024 at 09:47 by Terell Shore [employer] Version 8610 02/25/24950 Date Susie MUSA CC: Dr. Tiarra Bravo MD Date Dictated: 02/22/24905 Date Transcribed: 02/22/24905 Environmental Intern: LIBERTAD Signed Normal [facility] Procedure Reporton Procedure Report [facility] Medical Records Department [address] [place] [address] Procedure Report 02/15/24 1132 MR#: [id number] Acct: [id number] Name: RICHI HU Rep #: [id number] : 1955 68 From: Bob Gibson DO PCP: Dr. Tiarra Bravo MD Status:REG [facility] Location: [facility] Procedures Pulmonary Pulmonary Procedures /Diagnostic Testin Con Sedation Non-invasive Procedural Procedure Information Description of procedure: CONSCIOUS SEDATION REPORT DATE OF SERVICE: February 15, 2024 BRIEF HISTORY OF PRESENT ILLNESS: The patient is a 68-year-old male who presented to [facility] to undergo an elective outpatient cardioversion due to underlying atrial fibrillation. The patient did undergo a prior cardioversion back in November 2020. He denied any prior anesthetic complications. The patient has a known history of obstructive sleep apnea and reports compliance with nocturnal PAP therapy. He is systemically anticoagulated on Xarelto with an ejection fraction last noted to be approximately 45%. PHYSICAL EXAMINATION: VITAL SIGNS: Reviewed and were acceptable. GENERAL: The patient is an obese male, in no apparent distress, speaking in full sentences. HEENT: Normocephalic, atraumatic. Mucous membranes are moist and pink. Good mouth opening noted. Trachea is midline. Good neck mobility. CHEST: S1, S2 irregularly irregular. No murmurs, rubs or gallops were noted. LUNGS: Clear to auscultation bilaterally without appreciable wheezes, rales or rhonchi. ABDOMEN: Soft, nontender, nondistended. Positive bowel sounds. EXTREMITIES: There is no clubbing or cyanosis. Lower extremity edema is present. ASA Class: II DESCRIPTION OF PROCEDURE: After confirmation of informed consent, the patient's anesthesia plan was reviewed in detail. Propofol was chosen. Risks and benefits were reviewed and the patient agreed to proceed. At 1108, the patient was given 50 mg of propofol. The patient achieved an appropriate level of sedation and was given a 300 joule synchronized cardioversion by Dr. Shore at the bedside. This was successful in achieving normal sinus rhythm. The patient was monitored until 1123, at which time he reached his baseline mental status and function. The patient tolerated the procedure well. COMPLICATIONS: None ESTIMATED BLOOD LOSS: None RECOMMENDATIONS: Okay to recover in usual fashion. 02/15/24 1134 Cosigner Signature (if applicable): CC: Dr. Tiarra Bravo MD; Dr. Terell Shore MD; Dr. Bob Gibson DO Signed Normal [facility] Procedure Report [facility] Medical Records Department [address] [place] [address] Procedure Report 02/15/24 1121 MR#: [id number] Acct: [id number] Name: RICHI HU Rep #: [id number] : 1955 68 From: Terell Shore MD PCP: Dr. Tiarra Bravo MD Status[facility] Location: [facility] Problems Associated Problem List Diagnoses (1) Atrial fibrillation/flutter: Non-invasive Procedural Procedure Information Date of Procedure: 02/15/24 Pre-Procedure Diagnosis: Atrial flutter Post-Procedure Diagnosis: Same Procedure Performed:: DC cardioversion Procedure Time Out: 11:05 Procedure Start Time: 11:10 Procedure Stop Time: 11:15 Special Medications: Intravenous propofol 50 mg Description of procedure: Patient was brought to the cardiac catheterization lab in the postabsorptive nonsedated state. Informed consent was obtained anterior-posterior pads were applied. Patient was seen by Dr. Gibson of the critical care division. 50 mg intravenous propofol was administered and 300 J of synchronized biphasic DC cardioversion energy were applied with prompt reversal to sinus rhythm. Procedure findings: Jehovah'S Witness of sinus rhythm Complications Complications: No 02/15/24 1122 Cosigner Signature (if applicable): CC: Dr. Tiarra Bravo MD; Dr. Terell Shore MD Signed Normal [facility] Basic Metabolic Profile (BMP )on 02-08-2024 BUN/CRE 15.3 RATIO Normal 10-20 [facility] Comment on above: Performed By: #### L 500.2500 ####[facility] [address] [place], [address] CA,Total 8.9 mg/dL Normal 8.5-10.1 [facility] Comment on above: Performed By: #### L 500.2500 ####[facility] [address] [place], [address] Chloride [Moles/Vol] 107 mmol/L Normal 98-107 [facility] Comment on above: Performed By: #### L 500.2500 ####[facility] [address] [place], [address] CO2 [Moles/Vol] 25.0 mmol/L Normal 21.0-32.0 [facility] Comment on above: Performed By: #### L 500.2500 ####[facility] [address] [place], [address] Creatinine [Mass/Vol] 0.78 mg/dL Normal 0.70-1.30 [facility] Comment on above: Result Comment: The validity of the calculated GFR GFRAA in patients over 70 years has not been determined. Clinical correlation is essential. Performed By: #### L 500.2500 ####[facility] [address] [place], [address] EST GFR - AA 127 mL/min Normal >60 [facility] Comment on above: Result Comment: Afri can Guyanese GFR Calc Performed By: #### L 500.2500 ####[facility] [address] [place], [address] GAP 6 Normal 5-15 [facility] Comment on above: Performed By: #### L 500.2500 ####[facility] [address] [place], [address] GFR/1.73 sq M.predicted among non-blacks MDRD (S/P/Bld) [Vol rate/Area] 105 mL/min/{1.73_m2} Normal >60 [facility] Comment on above: Result Comment: Non- GFR Calc Performed By: #### L 500.2500 ####[facility] [address] [place], [address] Glucose [Mass/Vol] 91 mg/dL Normal 74-106 [facility] Comment on above: Performed By: #### L 500.2500 ####[facility] [address] [place], [address] Potassium [Moles/Vol] 3.9 mmol/L Normal 3.5-5.1 [facility] Comment on above: Performed By: #### L 500.2500 ####[facility] [address] [place], [address] Sodium [Moles/Vol] 138 mmol/L Normal 136-145 [facility] Comment on above: Performed By: #### L 500.2500 ####[facility] [address] [place], [place], [address] Urea nitrogen [Mass/Vol] 12 mg/dL Normal 7-18 [facility] Comment on above: Performed By: #### L 500.2500 ####[facility] [address] [place], [place], [address] 12 Lead EKG performed by [facility] on 01-25-2024 12 Lead EKG performed by [place] [address] [place] [address] 12 Lead EKG performed by [facility] 01/25/24 1000 MR#: [id number] Acct: [id number] Name: RICHI HU Rep #: [id number] : 1955 68 From: Susie May Attending Dr: DIMPLE Arndt Status: DEP AMB Ordering Dr: Susie Neely Date: 01/01 07/23 Location: [facility] Sex: M C Admitted: [facility]/12 Lead EKG performed by [facility] ECG Report Interpretation At rial fibrillation -irregular conduction -Poor R-wave progression -may be secondary to pulmonary disease consider old anterior infarct. -Nonspecific ST depression + Diffuse nonspecific T-abnormality -Nondiagnostic. Low voltage -possible pulmonary disease. ABNORMAL Electronically signed on 02/05/2024 at 16:32 by Terell Shore [employer] Version [id number] 02/05/24 1638 Date Susie MUSA CC: Dr. Tiarra Bravo MD Date Dictated: 01/25/24 1000 Date Transcribed: 01/25/24999 Environmental Intern: LIBERTAD Signed Normal [facility] Cardiology Visit Reporton Cardiology Visit Report [facility] [address] [place] [address] OFFICE VISIT Date of Service: 01/25/24 MR#: [id number] Acct: [id number] Name: RICHI HU Rep #: [id number] : 1955 Provider: DIMPLE Bojorquez Age/Sex: 68/M Location: [facility] Status: Signed HPI HPI History of Present Illness Details: Richi Hu is a 68-year-old man with a history of atrial fibrillation and a previous history of bilateral pulmonary emboli diagnosed in April 2018. He was hospitalized at that time underwent an echocardiogram which demonstrated an ejection fraction of 53%. He was also noted to be hypertensive and had obstructive sleep apnea. He underwent DC cardioversion in June 2018. He presented in January 2020 with chest discomfort had a 9 beat run of wide-complex tachycardia and underwent a cardiac catheterization that same month in November 2019 demonstrating an ejection fraction of 60% and normal coronary arteries. He was treated aggressively for his blood pressure and unfortunately in 2019 Nolan did sustain COVID-19 infection. He had a recurrence of his atrial fibrillation in 2020 and underwent radiofrequency ablation in October of that year. He returned in November with atrial fibrillation and underwent DC cardioversion. An echocardiogram at that time demonstrated an ejection fraction of 50%. He was then sent back for repeat ablation and a wide area of circumferential ablation as well as a roofline ablation was performed he was put on sotalol 120 mg twice a day as well asked to continue anticoagulation. EKG today demonstrates Afib with a HR of 65. He has been dizzy on/off this past week. He is using his CPAP. He does not feel his heart skipping. He does have some SOB and some CP over the last week. He does not have any swelling. He was in to see his PCP last week. Intake Vital Signs 07/09/23 15:05 01/25/24 09:52 Height 6 ft 5 in 6 ft 5 in Weight: 448 lb 442 lb BMI 53.1 52.4 BP 110/61 124/69 H Blood Pressure Location Lt radial Lt brachial Position Sitting Sitting Respiration 18 18 Pulse 70 76 Pulse Source Monitor Monitor Intake Visit Reasons: 6 M FU Assistant Press Operator Required: No Is patient in pain?: No Allergies Penicillins Allergy (Verified 01/25/24 09:53) Anaphylaxis Sulfa (Sulfonamide Antibiotics) Allergy (Verified 01/25/24 09:53) Hives Medications ???Medication ???Instructions ???Recorded ???Confirmed ???Type cholecalciferol (vitamin D3) 25 25 mcg PO DAILY 07/25/20 01/25/24 History mcg (1,000 unit) capsule multivitamin (Multiple Vitamins 1 tab PO DAILY 07/25/20 01/25/24 History tablet) latanoprost 0.005 % eye drops 1 drp ophthalmic (eye) DAILY 12/02/20 01/25/24 History tramadol 50 mg tablet 50 mg PO ONCE PRN 07/15/22 01/25/24 History spironolactone 25 mg tablet 25 mg PO DAILY #90 tabs 03/03/23 01/25/24 Rx losartan 50 mg tablet 50 mg PO DAILY #90 tabs 04/20/23 01/25/24 Rx vitamin B complex 1 tab PO DAILY 07/09/23 01/25/24 History furosemide 40 mg tablet 40 mg PO DAILY #90 tabs 09/25/23 01/25/24 Rx rivaroxaban 20 mg tablet 20 mg PO DINNER #90 tabs 09/25/23 01/25/24 Rx magnesium oxide 400 mg (241.3 mg 400 mg PO BID #180 tabs 11/23/23 01/25/24 Rx magnesium) tablet sotalol 120 mg tablet 120 mg PO BID #180 tabs 01/22/24 01/25/24 Rx Have you fallen in the past year?: No PFSH Medical History Impacted cerumen of both ears Cholecystitis History of CVA (cerebrovascular accident) (04/2018) Persistent atrial fibrillation Lumbar stenosis without neurogenic claudication COVID-19 virus detected (02/17/20) Dysfunction of both eustachian tubes Diffuse otitis externa, left ear Severe headache Fatigue SOB (shortness of breath) Paroxysmal atrial fibrillation Central sleep apnea associated with atrial fibrillation Persistent atrial fibrillation Hyperlipidemia Chronic diastolic (congestive) heart failure Bilateral pulmonary embolism (05/02/18) Paroxysmal atrial fibrillation with rapid ventricular response (05/02/18) Obesity Central sleep apnea Essential (primary) hypertension Back pain Knee pain Surgical History History of cholecystectomy (12/31/21) History of radiofrequency ablation procedure for cardiac arrhythmia (11/29/20) History of colonoscopy (04/27/20) History of left heart catheterization (11/16/19) History of cardioversion (12/25/20) History of total right knee replacement History of tonsillectomy and adenoidectomy History of knee surgery History of back surgery Family History Father Cancer glioblastoma Mother No problems noted. So (more content not included)... Normal [facility] Lumbar Spine 2 or 3 Viewson 12-31-2023 Lumbar Spine 2 or 3 Views [facility] Imaging Services [address] [place] [address] [id number] Lumbar Spine 2 or 3 Views MR#: [id number] Acct: [id number] Name: RICHI HU Rep #: [id number] : 1955 M 68 From: Marcos Busby MD PCP: Dr. Tiarra Bravo MD Status: REG CLI Study: Lumbar Spine 2 or 3 Views Date of Exam: Exam# [id number] Ordering Dr: Demetria Varela MD :[id number] STUDY: X-RAY - LUMBAR SPINE REASON FOR EXAM: Male, 68 years old. Spondylosis without myelopathy or radiculopathy, lumbosacral belkys TECHNIQUE: 2 view(s) of the lumbar spine were obtained. COMPARISON: None FINDINGS: Normal lumbar lordosis. Mild dextro scoliosis centered at L3. Status post transpedicular fixation at L5/S1 with 10 mm of anterolisthesis of L5 on S1. Mild lateral subluxation throughout the lumbar spine. There is multilevel endplate spondylosis of the lumbar vertebrae. There is multi-level degenerative disc disease with multi-level disc space narrowing. There is multilevel facet hypertrophy. The soft tissue structures are unremarkable. RAD/Lumbar Spine 2 or 3 Views IMPRESSION: Status post transpedicular fixation at L5/S1 with anterolisthesis of L5 on S1. Mild dextroscoliosis with diffuse degenerative disc disease and subluxation throughout the lumbar spine. Electronically Signed: Marcos Busby MD at 14:12 EDT , CC: Dr. Tiarra Bravo MD; Dr. Demteria Varela MD Environmental Intern: Signed Normal [facility] Basic Metabolic Profile (BMP )on 12-14-2023 BUN/CRE 14.7 RATIO Normal 12-19 [facility] Comment on above: Order Comment: Order Date: 12/14/23 Order Info: [id number] - BMP Order Info: [id number] - LIPID Order Info: [id number] - TSH Performed By: #### L 501.9520, L500.2500, L501.9985, L500.4100 #### [facility] [address] [place], [place], [id number] [place],Total 9.5 mg/dL Normal 8.5-10.1 [facility] Comment on above: Order Comment: Order Date: 12/14/23 Order Info: [id number] - BMP Order Info: [id number] - LIPID Order Info: [id number] - TSH Performed By: #### L 501.9520, L500.2500, L501.9985, L500.4100 #### [facility] [address] [place], [address] Chloride [Moles/Vol] 103 mmol/L Normal 98-107 [facility] Comment on above: Order Comment: Order Date: 12/14/23 Order Info: 666-03 - BMP Order Info: [id number] - LIPID Order Info: 3 - TSH Performed By: #### L 501.9520, L500.2500, L501.9985, L500.4100 #### [facility] [address] [place], [address] CO2 [Moles/Vol] 29.0 mmol/L Normal 21.0-32.0 [facility] Comment on above: Order Comment: Order Date: 12/14/23 Order Info: [id number] - BMP Order Info: - LIPID Order Info: [id number] - TSH Performed By: #### L 501.9520, L500.2500, L501.9985, L500.4100 #### [facility] [address] [place], [address] Creatinine [Mass/Vol] 0.88 mg/dL Normal 0.70-1.30 [facility] Comment on above: Order Comment: Order Date: 12/14/23 Order Info: 666-03 - BMP Order Info: - LIPID Order Info: [id number] - TSH Result Comment: The validity of the calculated GFR GFRAA in patients over 70 years has not been determined. Clinical correlation is essential. Performed By: #### L 501.9520, L500.2500, L501.9985, L500.4100 #### [facility] [address] [place], [address] EST GFR - AA 111 mL/min Normal >60 [facility] Comment on above: Order Comment: Order Date: 12/14/23 Order Info: 666-03 - BMP Order Info: - LIPID Order Info: [id number] - TSH Result Comment: Afri can Guyanese GFR Calc Performed By: #### L 501.9520, L500.2500, L501.9985, L500.4100 #### [facility] [address] [place], [address] GAP 6 Normal 5-15 [facility] Comment on above: Order Comment: Order Date: 12/14/23 Order Info: [id number] - BMP Order Info: - LIPID Order Info: [id number] - TSH Performed By: #### L 501.9520, L500.2500, L501.9985, L500.4100 #### [facility] [address] [place], [address] GFR/1.73 sq M.predicted among non-blacks MDRD (S/P/Bld) [Vol rate/Area] 92 mL/min/{1.73_m2} Normal >60 [facility] Comment on above: Order Comment: Order Date: 12/14/23 Order Info: [id number] - BMP Order Info: - LIPID Order Info: [id number] - TSH Result Comment: Non- GFR Calc Performed By: #### L 501.9520, L500.2500, L501.9985, L500.4100 #### [facility] [address] [place], [address] Glucose [Mass/Vol] 86 mg/dL Normal 74-106 [facility] Comment on above: Order Comment: Order Date: 12/14/23 Order Info: 666-03 - BMP Order Info: [id number] - LIPID Order Info: [id number] - TSH Performed By: #### L 501.9520, L500.2500, L501.9985, L500.4100 #### [facility] [address] [place], [address] Potassium [Moles/Vol] 4.3 mmol/L Normal 3.5-5.1 [facility] Comment on above: Order Comment: Order Date: 12/14/23 Order Info: [id number] - BMP Order Info: - LIPID Order Info: [id number] - TSH Performed By: #### L [id number], L500.2500, L501.9985, L500.4100 #### [facility] [address] [place], [address] Sodium [Moles/Vol] 138 mmol/L Normal 136-145 [facility] Comment on above: Order Comment: Order Date: 12/14/23 Order Info: [id number] - BMP Order Info: [id number] - LIPID Order Info: [id number] - TSH Performed By: #### L 501.9520, L500.2500, L501.9985, L500.4100 #### [facility] [address], [address] Urea nitrogen [Mass/Vol] 13 mg/dL Normal 7-18 [facility] Comment on above: Order Comment: Order Date: 12/14/23 Order Info: [id number] - BMP Order Info: [id number] - LIPID Order Info: [id number] - TSH Performed By: #### L [id number], L500.2500, L501.9985, L500.4100 #### [facility] [address] [place], [address] Hemoglobin A1con 12-14-2023 HbA1c (Bld) [Mass fraction] 5.8 % High 3.8-5.6 [facility] Comment on above: Order Comment: Order Date: 12/14/23 Order Info: [id number] - A1C Result Comment: Norm al < 5.7 % Prediabetic 5.7 - 6.4 % Diabetic >or= 6.5 % Please note range changes. Performed By: #### L 501.9520, L500.2500, L501.9985, L500.4100 #### [facility] [address] [place], [address] Lipid Profileon 12-14-2023 Cholesterol [Mass/Vol] 134 mg/dL Normal 200 [facility] Comment on above: Order Comment: Order Date: 12/14/23 Order Info: [id number] - BMP Order Info: - LIPID Order Info: 3 - TSH Result Comment: <200 mg/dL Desirable 200-240 mg/dL Borderline >240 mg/dL High Risk Performed By: #### L 501.9520, L500.2500, L501.9985, L500.4100 #### [facility] [address] [place], [address] Cholesterol in HDL [Mass/Vol] 33 mg/dL Low [facility] Comment on above: Order Comment: Order Date: 12/14/23 Order Info: [id number] - BMP Order Info: - LIPID Order Info: [id number] - TSH Result Comment: The drugs N-Acetylcysteine and Metamizole may falsely depress this assay. Reference Range HDL <40 mg/dL Low HDL Cholesterol HDL >or= 60 mg/dL High HDL Cholesterol Performed By: #### L 501.9520, L500.2500, L501.9985, L500.4100 #### [facility] [address] [place], [address] Cholesterol in LDL [Mass/Vol] 76 mg/dL Normal 0-130 [facility] Comment on above: Order Comment: Order Date: 12/14/23 Order Info: 666-03 - BMP Order Info: - LIPID Order Info: [id number] - TSH Performed By: #### L 501.9520, L500.2500, L501.9985, L500.4100 #### [facility] [address] [place], [address] Cholesterol in VLDL [Mass/Vol] 25 mg/dL Normal 5-40 [facility] Comment on above: Order Comment: Order Date: 12/14/23 Order Info: [id number] - BMP Order Info: - LIPID Order Info: 3 - TSH Performed By: #### L [id number], L500.2500, L501.9985, L500.4100 #### [facility] [address] [place], [address] Triglyceride [Mass/Vol] 123 mg/dL Normal [facility] Comment on above: Order Comment: Order Date: 12/14/23 Order Info: [id number] - BMP Order Info: [id number] - LIPID Order Info: [id number] - TSH Result Comment: The drugs N-Acetylcysteine and Metamizole may falsely depress this assay. Serum Triglycerides Reference Interval Normal <150 mg/dL Borderline high 150 - 199 mg/dL High 200 - 499 mg/dL Very High > or = 500 mg/dL Performed By: #### L 501.9520, L500.2500, L501.9985, L500.4100 #### [facility] [address] [place], [address] Protein+Creatinine Ratio,Uri neon 12-14-2023 PROT:CRE RATIO 135 mg/g CRE Normal 0-200 [facility] Comment on above: Performed By: #### L 501.0900 #### [facility] [address] [place], [address] Protein (U) [Mass/Vol] 24.8 mg/dL High <11.9 [facility] Comment on above: Performed By: #### L 501.0900 #### [facility] [address] [place], [address] UR CREAT 184.00 mg/dL Normal NO RANGE EST. [facility] Comment on above: Performed By: #### L 501.0900 #### [facility] [address] [place], [address] Thyroid Stim Hormone (TSH)on 12-14-2023 TSH 1.730 uIU/mL Normal 0.358-3.74 0 [facility] Comment on above: Order Comment: Order Date: 12/14/23 Order Info: [id number] - BMP Order Info: [id number] - LIPID Order Info: [id number] - TSH Performed By: #### L [id number], L500.2500, L501.9985, L500.4100 #### [facility] [place], [address] Laboratory - Drug toxicology Ordered By: Demetria Varela on 04-01-2023 Amphetamines Ql (U) Negative <1000 ng/mL [facility] Benzodiazepines Ql (U) Negative < 200 ng/mL [facility] Cannabinoids Screen Ql (U) Negative < 50 ng/mL [facility] Cocaine Ql (U) Negative < 300 ng/mL [facility] Opiates Ql (U) Negative < 300 ng/mL [facility] No Panel InformationOrdered By: Demetria Varela on 04-01-2023 MDMA (Ecstasy) Screen Negative < 500 ng/mL [facility] Urine Barbiturates Screen Negative < 200 ng/mL [facility] Urine Drug Screen Comment [facility] Comment on above: CONFIRMATORY TESTING FOR ALL POSITIVE URINE DRUG SCREENRESULTS WILL ONLY BE SENT OUT UPON PHYSICIAN ORDER. VISTA Urine Drug Screen methods provide only preliminaryanalytical test results. A more specific alternate chemicalmethod must be used in order to obtain a confirmedanalytical result. Gas chromatography/mass spectrometery(GC/MS) is the preferred confirmatory method. Clinicalconsideration and professional judgement should be appliedto any drug of abuse test result, particularly whenpreliminary positive results are used. URINE TCA TESTING MUST BE ORDERED SEPARATELY. USE TESTMNEMONIC: [facility] Urine Methadone Screen Negative < 300 ng/mL [facility] Urine phencyclidine (PCP) de tectionOrdered By: Demetria Varela on 04-01-2023 Phencyclidine Ql (U) Negative < 25 ng/mL [facility] Basophil percentageOrdered B y: Tiarra Bravo on 02-13-2023 Chloride [Moles/Vol] 102 mmol/L 98-107 [facility] Cholesterol [Mass/Vol] 144 mg/dL <200 [facility] Comment on above: <200 mg/dL Desirable 200-240 mg/dL Borderline >240 mg/dL High Risk Glucose [Mass/Vol] 109 mg/dL 74-106 [facility] Comment on above: Fasting Glucose resu lt from 100 to 125 mg/dL suggests IMPAIRED HOMEOSTASIS per A.D.A. criteria. Potassium [Moles/Vol] 3.8 mmol/L 3.5-5.1 [facility] Sodium [Moles/Vol] 137 mmol/L 136-145 [facility] Triglyceride [Mass/Vol] 122 mg/dL <199 [facility] Comment on above: The drugs N-Acetylcy steine and Metamizole may falsely depress this assay.Serum Triglycerides Reference Interval Normal <150 mg/dL Borderline high 150 - 199 mg/dL High 200 - 499 mg/dL Very High > or = 500 mg/dL Laboratory - Chemistry and C hemistry - challengeOrdered By: Tiarra Bravo on 02-13-2023 CO2 [Moles/Vol] 32.0 mmol/L 21.0-32.0 [facility] Urea nitrogen/Creatinine [Mass ratio] 18.1 mg/mg 10-20 [facility] No Panel InformationOrdered By: Tiarra Bravo on 02-13-2023 Estimated GFR (MDRD) Amer 120 mL/min >60 [facility] Comment on above: GFR Calc Estimated GFR (MDRD) Non-Af Amer 99 mL/min >60 [facility] Comment on above: Non- GFR Calc Prostate Specific Antigen Screen 0.61 ng/mL 0.00-4.00 [facility] Comment on above: This test was perfor med using the TPSA assay method [facility]. Values obtained with differentassay methods cannot be used interchangably.When changing PSA assays in the course of monitoring apatient, additional sequential testing should be carriedout to confirm baseline values. Serum or plasma calcium emre urement (mass/volume)Ordered By: Tiarra Bravo on 02-13-2023 Calcium [Mass/Vol] 9.1 mg/dL 8.5-10.1 [facility] Serum or plasma cholesterol in HDL measurement (mass/volume)Ordered By: Tiarra Bravo on 02-13-2023 Cholesterol in HDL [Mass/Vol] 35 mg/dL >40 [facility] Comment on above: The drugs N-Acetylcy steine and Metamizole may falsely depress this assay. Reference Range HDL <40 mg/dL Low HDL Cholesterol HDL >or= 60 mg/dL High HDL Cholesterol Serum or plasma cholesterol in VLDL measurement (mass/volume)Ordered By: Tiarra Bravo on 02-13-2023 Cholesterol in VLDL [Mass/Vol] 24 mg/dL 5-40 [facility] Serum or plasma creatinine m easurement (mass/volume)Ordered By: Tiarra Bravo on 02-13-2023 Creatinine [Mass/Vol] 0.83 mg/dL 0.70-1.30 [facility] Comment on above: The validity of the calculated GFR & GFRAA in patients over 70 years has not been determined. Clinical correlation is essential. Serum or plasma low density lipoprotein (LDL) cholesterol measurement (mass/volume)Ordered By: Tiarra Bravo on 02-13-2023 Cholesterol in LDL [Mass/Vol] 85 mg/dL 0-130 [facility] Serum or plasma urea nitroge n measurement (mass/volume)Ordered By: Tiarra Bravo on 02-13-2023 Urea nitrogen [Mass/Vol] 15 mg/dL 7-18 [facility] Thin prep Papanicolaou smear with manual screeningOrdered By: Tiarra Bravo on 02-13-2023 Thin prep Papanicolaou smear with manual screening 3 5-15 [facility] Absolute lymphocyte countOrd ered By: Susie Neely on 01-06-2023 Lymphocytes Auto (Unsp spec) [#/Vol] 2.60 10*3/uL 0.83-4.51 [facility] Basophil percentageOrdered B y: Susie Neely on 01-06-2023 Basophils/100 WBC (Bld) 0.8 % 0-1 [facility] Chloride [Moles/Vol] 103 mmol/L 98-107 [facility] Eosinophils/100 WBC (Bld) 3.4 % 0-5 [facility] Glucose [Mass/Vol] 97 mg/dL 74-106 [facility] Neutrophils (Bld) [#/Vol] 5.1 10*3/uL 2.0-7.7 [facility] Neutrophils/100 WBC (Bld) 57.3 % 47-70 [facility] Potassium [Moles/Vol] 3.9 mmol/L 3.5-5.1 [facility] Sodium [Moles/Vol] 137 mmol/L 136-145 [facility] WBC (Bld) [#/Vol] 8.9 10*3/uL 4.4-11.0 [facility] Blood erythrocytes count (nu mber/volume)Ordered By: Susie Neely on 01-06-2023 RBC (Bld) [#/Vol] 4.91 10*6/uL 4.6-6.2 [facility] Blood hemoglobin measurement (mass/volume)Ordered By: Susie Neely on 01-06-2023 Hemoglobin (Bld) [Mass/Vol] 15.2 g/dL 13.0-16.5 [facility] Blood lymphocytes/100 leukoc ytesOrdered By: Susie Neely on 01-06-2023 Lymphocytes/100 WBC (Bld) 29.1 % 19-41 [facility] Blood monocytes/100 leukocyt esOrdered By: Susie Neely on 01-06-2023 Monocytes/100 WBC (Bld) 9.0 % 0-10 [facility] Blood platelet mean volumeOr dered By: Susie Neely on 01-06-2023 Platelet mean volume (Bld) [Entitic vol] 9.6 fL 6.2-12.0 [facility] Determination of erythrocyte mean corpuscular volume (MCV)Ordered By: Susie Neely on 01-06-2023 MCV (RBC) [Entitic vol] 93.3 fL 80-94 [facility] Hematocrit Auto (Bld) [Volum e fraction]Ordered By: Susie Neely on 01-06-2023 Hematocrit (Bld) [Volume fraction] 45.8 % 40-54 [facility] Laboratory - Chemistry and C hemistry - challengeOrdered By: Susie Neely on 01-06-2023 CO2 [Moles/Vol] 31.0 mmol/L 21.0-32.0 [facility] Magnesium [Mass/Vol] 2.2 mg/dL 1.6-2.6 [facility] Natriuretic peptide B (Bld) [Mass/Vol] 104.6 pg/mL 0-100 [facility] Urea nitrogen/Creatinine [Mass ratio] 17.1 mg/mg 10-20 [facility] - Hematology and Cell countsOrdered By: Susie Neely on 01-06-2023 Erythrocyte distribution width (RBC) [Entitic vol] 45.5 fL 35.1-43.9 [facility] Erythrocyte distribution width (RBC) [Ratio] 13.3 % 11.6-14.6 [facility] Immature granulocytes/100 WBC (Bld) 0.400 % 0.0-0.9 [facility] Comment on above: IG% - Immature Granu locytes (promyelocytes, myelocytes and metamyelocytes) > 1% indicates that a LEFT SHIFT is Present. MCH (RBC) [Entitic mass] 31.0 pg 27.0-32.0 [facility] Nucleated RBC/100 WBC (Bld) [Ratio] 0 % 0-5 [facility] MCHC Auto (RBC) [Mass/Vol]Or dered By: Susie Neely on 01-06-2023 MCHC (RBC) [Mass/Vol] 33.2 g/dL 32-36 [facility] No Panel InformationOrdered By: Susie Neely on 01-06-2023 Estimated GFR (MDRD) Amer 112 mL/min >60 [facility] Comment on above: GFR Calc Estimated GFR (MDRD) Non-Af Amer 93 mL/min >60 [facility] Comment on above: Non- GFR Calc Thyroid Stimulating Hormone (TSH) 2.20 uIU/mL 0.358-3.74 [facility] Platelets bldOrdered By: Porter Neely on 01-06-2023 Platelets (Bld) [#/Vol] 211 10*3/uL 150-450 [facility] Serum or plasma calcium emre urement (mass/volume)Ordered By: Susie Neely on 01-06-2023 Calcium [Mass/Vol] 9.1 mg/dL 8.5-10.1 [facility] Serum or plasma creatinine m easurement (mass/volume)Ordered By: Susie Neely on 01-06-2023 Creatinine [Mass/Vol] 0.88 mg/dL 0.70-1.30 [facility] Comment on above: The validity of the calculated GFR & GFRAA in patients over 70 years has not been determined. Clinical correlation is essential. Serum or plasma urea nitroge n measurement (mass/volume)Ordered By: Susie Neely on 01-06-2023 Urea nitrogen [Mass/Vol] 15 mg/dL 7-18 [facility] Thin prep Papanicolaou smear with manual screeningOrdered By: Susie Neely on 01-06-2023 Thin prep Papanicolaou smear with manual screening 3 5-15 [facility] Basophil percentageOrdered B y: Tiarra Bravo on 12-08-2022 Chloride [Moles/Vol] 105 mmol/L 98-107 [facility] Glucose [Mass/Vol] 100 mg/dL 74-106 [facility] Comment on above: Fasting Glucose resu lt from 100 to 125 mg/dL suggests IMPAIRED HOMEOSTASIS per A.D.A. criteria. Potassium [Moles/Vol] 3.7 mmol/L 3.5-5.1 [facility] Sodium [Moles/Vol] 138 mmol/L 136-145 [facility] Laboratory - Chemistry and C hemistry - challengeOrdered By: Tiarra Bravo on 12-08-2022 CO2 [Moles/Vol] 26.0 mmol/L 21.0-32.0 [facility] Urea nitrogen/Creatinine [Mass ratio] 16.8 mg/mg 10-20 [facility] No Panel InformationOrdered By: Tiarra Bravo on 12-08-2022 Estimated GFR (MDRD) Amer 119 mL/min >60 [facility] Comment on above: GFR Calc Estimated GFR (MDRD) Non-Af Amer 98 mL/min >60 [facility] Comment on above: Non- GFR Calc Urine Microalbumin/Creatin ine Ratio 12.6 mg/g CRE <30 [facility] Serum or plasma calcium emre urement (mass/volume)Ordered By: Tiarra Bravo on 12-08-2022 Calcium [Mass/Vol] 8.9 mg/dL 8.5-10.1 [facility] Serum or plasma creatinine m easurement (mass/volume)Ordered By: Tiarra Bravo on 12-08-2022 Creatinine [Mass/Vol] 0.83 mg/dL 0.70-1.30 [facility] Comment on above: The validity of the calculated GFR & GFRAA in patients over 70 years has not been determined. Clinical correlation is essential. Serum or plasma urea nitroge n measurement (mass/volume)Ordered By: Tiarra Bravo on 12-08-2022 Urea nitrogen [Mass/Vol] 14 mg/dL 7-18 [facility] Thin prep Papanicolaou smear with manual screeningOrdered By: Tiarra Bravo on 12-08-2022 Thin prep Papanicolaou smear with manual screening 7 5-15 [facility] Thin prep Papanicolaou smear with manual screening 16.0 mg/L NO RANGE EST. [facility] Urine creatinine measurement (mass/volume)Ordered By: Tiarra Bravo on 12-08-2022 Creatinine (U) [Mass/Vol] 127.00 mg/dL NO RANGE EST. [facility] - Drug toxicology Ordered By: Dr. Varela on 06-19-2022 Amphetamines Ql (U) Negative <1000 ng/mL [facility] Benzodiazepines Ql (U) Negative < 200 ng/mL [facility] Cannabinoids Screen Ql (U) Negative < 50 ng/mL [facility] Cocaine Ql (U) Negative < 300 ng/mL [facility] Opiates Ql (U) Negative < 300 ng/mL [facility] No Panel InformationOrdered By: Dr. Varela on 06-19-2022 MDMA (Ecstasy) Screen Negative < 500 ng/mL [facility] Urine Barbiturates Screen Negative < 200 ng/mL [facility] Urine Drug Screen Comment [facility] Comment on above: CONFIRMATORY TESTING FOR ALL POSITIVE URINE DRUG SCREENRESULTS WILL ONLY BE SENT OUT UPON PHYSICIAN ORDER. [facility]ISTA Urine Drug Screen methods provide only preliminaryanalytical test results. A more specific alternate chemicalmethod must be used in order to obtain a confirmedanalytical result. Gas chromatography/mass spectrometery(GC/MS) is the preferred confirmatory method. Clinicalconsideration and professional judgement should be appliedto any drug of abuse test result, particularly whenpreliminary positive results are used. URINE TCA TESTING MUST BE ORDERED SEPARATELY. USE TESTMNEMONIC: [facility] Urine Methadone Screen Negative < 300 ng/mL [facility] Urine phencyclidine (PCP) de tectionOrdered By: Dr. Varela on 06-19-2022 Phencyclidine Ql (U) Negative < 25 ng/mL [facility] ERCPon 04-02-2022 ERCP PATIENTNAME Patient Name: Richi Hu EXAMDATE Procedure Date: 04/02/2022 10:33 AM PATIENTID PATIENTACCOUNTNUM PATIENTDOB Date of : 1955 ADMITTYPE Admit Type: Outpatient PATIENTROOM Site: [facility] 1 ETHNICITY Ethnicity: Not or RACE Race: White PROVDR Attending MD: Argelia Abad MD, [id number] ENDOPROCEDURENAME Procedure: ERCP INDICATION Indications: Common bile duct stone(s), Follow-up of ascending cholangitis, Stent removal, Prior bile duct stent placement, Prior Endoscopic Retrograde Cholangiopancreatography, S/p cholecytectomy PTPROFILE Patient Profile: This is a 66 year old male. Refer to note in patient chart for documentation of history and physical. PRIMARYPROVIDER Providers: Argelia Abad MD (Doctor), Sena Harrison RN (Nurse), Nuria Calderon, Dry Box Operator EDREFPROVIDER Referring: Argelia Abad MD CURRENT_MEDS Medicines: General Anesthesia COMPLIC Complications: No immediate complications. ENDOPROCEDURETEXT Procedure: Pre-Anesthesia Assessment: - Prior to the procedure, a History and Physical was performed, and patient medications and allergies were reviewed. The patient's tolerance of previous anesthesia was also reviewed. The risks and benefits of the procedure and the sedation options and risks were discussed with the patient. All questions were answered, and informed consent was obtained. Prior Anticoagulants: The patient has taken no anticoagulant or antiplatelet agents. ASA Grade Assessment: III - A patient with severe systemic disease. After reviewing the risks and benefits, the patient was deemed in satisfactory condition to undergo the procedure. After obtaining informed consent, the scope was passed under direct vision. Throughout the procedure, the patient's blood pressure, pulse, and oxygen saturations were monitored continuously. The duodenoscope was introduced through the mouth, and advanced to the duodenum and used to locate the major papilla. The ERCP was accomplished without difficulty. The patient tolerated the procedure well. FINDING Findings: A biliary stent was visible on the motor transport inspector film. A standard esophagogastroduodenoscopy scope was used for the examination of the upper gastrointestinal tract. The scope was passed under direct vision through the upper GI tract. Localized nodular mucosa was found in the second portion of the duodenum. Periampullary nodularity was noted. Biopsies were taken in the second portion of the duodenum through the ERCP scope with the cold forceps for histology. , The major papilla was located entirely within a diverticulum. One plastic stent originating in the common bile duct was emerging from the major papilla. One stent was removed from the common bile duct using a snare. A 0.035 inch angled standard wire was passed into the biliary tree. The 8.5 mm balloon was passed over the guidewire and the bile duct was then deeply cannulated. Contrast was injected. I personally interpreted the bile duct images. Ductal flow of contrast was adequate. Image quality was adequate. Contrast extended to the main bile duct. Opacification of the common bile duct, common hepatic duct, left main hepatic duct and right main hepatic duct was successful. The biliary tree was swept with an 11.5 mm balloon starting at the upper third of the main bile duct. Sludge was swept from the duct. Repeated cholangiogram showed no filling defects. EBL Estimated Blood Loss: Estimated blood loss: none. IMPRESS Impression: - Nodular mucosa in the second portion of the duodenum. - Biopsies were taken with a cold forceps for histology in the second portion of the duodenum/Periampullary irregularity/nodularity . - One stent from the common bile duct was seen in the major papilla. - One stent was removed from the common bile duct. - The biliary tree was swept and sludge was found. ENDORECOMMENDATION Recommendation: - Discharge patient to home. - Return to referring physician. - Advance diet as tolerated. - Await path results. CPT_CODES Procedure Code(s): --- Professional --- 89297, Esophagogastroduodenoscopy, flexible, transoral; with removal of foreign body(s) 19106, Esophagogastroduodenoscopy, flexible, transoral; with biopsy, single or multiple ICD_CODES Diagnosis Code(s): --- Professional --- Z98.890, Other specified postprocedural states K83.09, Other cholangitis Z46.59, Encounter for fitting and adjustment of other gastrointestinal appliance and device Z96.89, Presence of other specified functional implants K80.30, Calculus of bile duct with cholangitis, unspecified, without obstruction K31.89, Other diseases of stomach and duodenum CODINGSTMT CPT copyright 2020 [employer]. All rights reserved. The codes documented in this report are preliminary and upon surgical coder rev (more content not included)... Normal [facility] No Panel Informationon 04-02 [facility] Work Phone: [email or web address] } [facility] Work Phone: [facility] Work Phone: Order Reconciliationon 04-02 Order Reconciliation Page 1 Discharge Reconciliation Document Reconciliation Type: Discharge requested on behalf of Argelia Aabd (Physician) done by Argelia Abad) Discharge - Reconciliation: 02-Apr-2022 10:46 by: Argelia Abad) Home Medications EnteredHOME MEDICATIONS AT DISCHARGE DateReconciliation Comment/ Additional Information Centrum Adults oral tablet 1 tab(s) orally once a day 02-Apr-2022 10:00 Centrum Adults oral tablet 1 tab(s) orally once a day 02-Apr-2022 10:00 Centrum Adults oral tablet is continued as Centrum Adults oral tablet furosemide 40 mg oral tablet 1 tab(s) orally once a day 30-Dec-2021 11:34 furosemide 40 mg oral tablet 1 tab(s) orally once a day 30-Dec-2021 11:34 furosemide 40 mg oral tablet is continued as furosemide 40 mg oral tablet latanoprost 0.005% ophthalmic solution 1 drop(s) in each eye once a day (in the evening) 30-Dec-2021 12:21 latanoprost 0.005% ophthalmic solution 1 drop(s) in each eye once a day (in the evening) 30-Dec-2021 12:21 latanoprost 0.005% ophthalmic solution is continued as latanoprost 0.005% ophthalmic solution lisinopril 20 mg oral tablet 1 tab(s) orally once a day 30-Dec-2021 11:20 lisinopril 20 mg oral tablet 1 tab(s) orally once a day 30-Dec-2021 11:20 lisinopril 20 mg oral tablet is continued as lisinopril 20 mg oral tablet rivaroxaban 20 mg oral tablet 1 tab(s) orally once a day (in the evening) 30-Dec-2021 12:19 rivaroxaban 20 mg oral tablet 1 tab(s) orally once a day (in the evening) 30-Dec-2021 12:19 rivaroxaban 20 mg oral tablet is continued as rivaroxaban 20 mg oral tablet sotalol 120 mg oral tablet 1 tab(s) orally 2 times a day 30-Dec-2021 11:21 sotalol 120 mg oral tablet 1 tab(s) orally 2 times a day 30-Dec-2021 11:21 sotalol 120 mg oral tablet is continued as sotalol 120 mg oral tablet traMADol 50 mg oral tablet 1 tab(s) orally every 6 hours, As Needed 02-Apr-2022 09:59 traMADol 50 mg oral tablet 1 tab(s) orally every 6 hours, As Needed 02-Apr-2022 09:59 traMADol 50 mg oral tablet is continued as traMADol 50 mg oral tablet Vitamin D3 50 mcg (2000 intl units) oral capsule 1 cap(s) orally once a day 02-Apr-2022 09:59 Vitamin D3 50 mcg (2000 intl units) oral capsule 1 cap(s) orally once a day 02-Apr-2022 09:59 Vitamin D3 50 mcg (2000 intl units) oral capsule is continued as Vitamin D3 50 mcg (2000 intl units) oral capsule All Active Home Medications at time of Discharge Reconciliation: 02-Apr-2022 10:46 Centrum Adults oral tablet 1 tab(s) orally once a day furosemide 40 mg oral tablet 1 tab(s) orally once a day latanoprost 0.005% ophthalmic solution 1 drop(s) in each eye once a day (in the evening) lisinopril 20 mg oral tablet 1 tab(s) orally once a day rivaroxaban 20 mg oral tablet 1 tab(s) orally once a day (in the evening) sotalol 120 mg oral tablet 1 tab(s) orally 2 times a day traMADol 50 mg oral tablet 1 tab(s) orally every 6 hours, As Needed Vitamin D3 50 mcg (2000 intl units) oral capsule 1 cap(s) orally once a day Normal [facility] Radiologyon 04-02-2022 Fluoroscopy duration Please click on the link to view the study images Normal [facility] [place] Work Phone: [facility] Surgical Pathology Depar tmenton 04-02-2022 [facility] Surgical Pathology Department Name RICHI HU Pathologist: KAVYA CLEMENTE Date of Procedure: 04/02/2022 Date Received: 04/02/2022 Date Reported 04/07/2022 Submitting Physician: ARGELIA ABAD MD Location: [facility] Other External # FINAL DIAGNOSIS A. ANTHONY AMPULLA BIOPSY: -- DUODENAL MUCOSA WITH MILD FOCAL SUPERFICIAL ACUTE INFLAMMATION. -- NO MALIGNANCY OR DYSPLASIA IDENTIFIED. Electronically Signed Out By KAVYA CLEMENTE/LUCIANO By the signature on this report, the individual or group listed as making the Final Interpretation/Diagnosis certifies that they have reviewed this case. Diagnostic interpretation performed at [facility] [address] [facility]. [place] [id number] Clinical History: CBD stent removal, history of CBD stones Specimens Submitted As: A: ANTHONY AMPULLA BIOPSY Gross Description: Received in formalin, labeled with the patient's name and hospital number and A. Ampulla BX, is a fragment of ortega, soft tissue measuring 0.3 x 0.2 x 0.2 cm. The specimen is submitted in toto in one cassette. SBS sbs/04/03/2022 [facility] Department of Pathology [address] [place] [address] Normal [facility] Comment on above: Performed By: #### U [facility] #### [facility] Surgical Pathology Department [address] [place] [address] No Panel Informationon 02-10 Prostate Specific Antigen Screen 0.75 ng/mL 0.00-4.00 [facility] Work Phone: Comment on above: This test was perfor med using the TPSA assay method for theDimension chemistry system. Values obtained with differentassay methods cannot be used interchangably.When changing PSA assays in the course of monitoring apatient, additional sequential testing should be carriedout to confirm baseline values. CBCon 01-03-2022 Erythrocyte distribution width (RBC) [Ratio] 14.4 % Normal 11.5 - 14.5 [facility] Comment on above: Performed By: #### M G #### [address] [address] Hematocrit (Bld) [Volume fraction] 38.9 % Low 41.0 - 52.0 [facility] Comment on above: Performed By: #### M G #### [address] [address] Hemoglobin (Bld) [Mass/Vol] 12.7 g/dL Low 13.5 - 17.5 [facility] Comment on above: Performed By: #### M G #### [address] [address] MCHC (RBC) [Mass/Vol] 32.6 g/dL Normal 32.0 - 36.0 [facility] Comment on above: Performed By: #### M G #### [address] [address] MCV (RBC) [Entitic vol] 98 fL Normal 80 - 100 [facility] Comment on above: Performed By: #### M G #### [address] [address] NUCLEATED RBC 0.0 /100 WBC Normal 0.0 - 0.0 [facility] Comment on above: Performed By: #### M G #### [address] [address] Platelets (Bld) [#/Vol] 141 10*3/uL Low 150 - 450 [facility] Comment on above: Performed By: #### M G #### [address] [address] RBC 3.96 x10E12/L Low 4.50 - 5.90 [facility] Comment on above: Performed By: #### M G #### [address] [address] WBC (Bld) [#/Vol] 8.3 10*3/uL Normal 4.4 - 11.3 [facility] Comment on above: Performed By: #### M G #### [address] [address] COMPREHENSIVE PANELon 2021 Albumin [Mass/Vol] 2.9 g/dL Low 3.4 - 5.0 [facility] Comment on above: Performed By: #### C MP #### [address] [address] ALP [Catalytic activity/Vol] 106 U/L Normal 33 - 136 [facility] Comment on above: Performed By: #### C MP #### [address] [address] ALT [Catalytic activity/Vol] 80 U/L High 10 - 52 [facility] Comment on above: Result Comment: Sri ents treated with Sulfasalazine may generate falsely decreased results for ALT. Performed By: #### C MP #### [address] [address] Anion gap [Moles/Vol] 11 mmol/L Normal 10 - 20 [facility] Comment on above: Performed By: #### C MP #### [address] [address] AST [Catalytic activity/Vol] 41 U/L High 9 - 39 [facility] Comment on above: Performed By: #### C MP #### [address] [address] Bilirubin [Mass/Vol] 2.1 mg/dL High 0.0 - 1.2 [facility] Comment on above: Performed By: #### C MP #### [address] [address] Calcium [Mass/Vol] 8.0 mg/dL Low 8.6 - 10.3 [facility] Comment on above: Performed By: #### C MP #### [address] [address] Chloride [Moles/Vol] 104 mmol/L Normal 98 - 107 [facility] Comment on above: Performed By: #### C MP #### [address] [address] Creatinine [Mass/Vol] 0.63 mg/dL Normal 0.50 - 1.30 [facility] Comment on above: Performed By: #### C MP #### [address] [address] eGFR MALE >90 Normal >90 [facility] Comment on above: Result Comment: CALC ULATIONS OF ESTIMATED GFR ARE PERFORMED USING THE 2020 CKD-EPI STUDY REFIT EQUATION WITHOUT THE RACE VARIABLE FOR THE IDMS-TRACEABLE CREATININE METHODS. https://jasn.asnjournals.org/content/early//ASN.5883316 988 Performed By: #### C MP #### [address] [address] Glucose [Mass/Vol] 93 mg/dL Normal 74 - 99 [facility] Comment on above: Performed By: #### C MP #### [address] [address] HCO3 (Bld) [Moles/Vol] 25 mmol/L Normal 21 - 32 [facility] Comment on above: Performed By: #### C MP #### [address] [address] Potassium [Moles/Vol] 3.8 mmol/L Normal 3.5 - 5.3 [facility] Comment on above: Performed By: #### C MP #### [address] [address] Protein [Mass/Vol] 5.2 g/dL Low 6.4 - 8.2 [facility] Comment on above: Performed By: #### C MP #### [address] [address] Sodium [Moles/Vol] 136 mmol/L Normal 136 - 145 [facility] Comment on above: Performed By: #### C MP #### [address] [address] Urea nitrogen [Mass/Vol] 15 mg/dL Normal 6 - 23 [facility] Comment on above: Performed By: #### C MP #### [place] [address] [place] [address] Laboratory - Chemistry and C hemistry - challengeon 01-03-2022 Albumin BCP dye [Mass/Vol] 2.9 g/dL below low threshold 3.4 - 5.0 [facility] [employer] Work Phone: ALP [Catalytic activity/Vol] 106 U/L 33 - 136 [facility] [employer] Work Phone: ALT With P-5'-P [Catalytic activity/Vol] 80 U/L above high threshold 10 - 52 [facility] [employer] Work Phone: Comment on above: Patients treated wit h Sulfasalazine may generate falsely decreased results for ALT. Anion gap [Moles/Vol] 11 mmol/L 10 - 20 [facility] [employer] Work Phone: AST With P-5'-P [Catalytic activity/Vol] 41 U/L above high threshold 9 - 39 [facility] [employer] Work Phone: Bilirubin [Mass/Vol] 2.1 mg/dL above high threshold 0.0 - 1.2 [facility] [employer] Work Phone: Calcium [Mass/Vol] 8.0 mg/dL below low threshold 8.6 - 10.3 [facility] [employer] Work Phone: Chloride [Moles/Vol] 104 mmol/L 98 - 107 -[facility] [employer] Work Phone: CO2 [Moles/Vol] 25 mmol/L 21 - 32 [facility] [employer] Work Phone: Creatinine [Mass/Vol] 0.63 mg/dL See Below [facility] [employer] Work Phone: Comment on above: Reference Range: 0.5 0 - 1.30 Glucose [Mass/Vol] 93 mg/dL 74 - 99 -[facility] v [facility]astroenter [facility] [email or web address] Work Phone: Potassium [Moles/Vol] 3.8 mmol/L 3.5 - 5.3 [facility] Work Phone: Protein [Mass/Vol] 5.2 g/dL below low threshold 6.4 - 8.2 [facility] Work Phone: Sodium [Moles/Vol] 136 mmol/L 136 - 145 -[facility]enter [facility] Work Phone: Urea nitrogen [Mass/Vol] 15 mg/dL 6 - 23 [facility] [place] [email or web address] Work Phone: Laboratory - Hematology and Cell countson 01-03-2022 Erythrocyte distribution width (RBC) [Ratio] 14.4 % See Below [facility] Work Phone: Comment on above: Reference Range: 11. 5 - 14.5 Hematocrit (Bld) [Volume fraction] 38.9 % below low threshold See Below [facility] [place] [place] Work Phone: Comment on above: Reference Range: 41. 0 - 52.0 Hemoglobin (Bld) [Mass/Vol] 12.7 g/dL below low threshold See Below [facility] Work Phone: Comment on above: Reference Range: 13. 5 - 17.5 MCHC (RBC) [Mass/Vol] 32.6 g/dL See Below [facility] Work Phone: Comment on above: Reference Range: 32. 0 - 36.0 MCV (RBC) [Entitic vol] 98 fL 80 - 100 -[facility]enter [facility] Work Phone: Platelets (Bld) [#/Vol] 141 10*3/uL below low threshold 150 - 450 -[facility]enter [facility] Work Phone: RBC (Bld) [#/Vol] 3.96 {x10E12/L} below low threshold See Below -[facility] Work Phone: Comment on above: Reference Range: 4.5 0 - 5.90 WBC (Bld) [#/Vol] 8.3 10*3/uL 4.4 - 11.3 [facility] Work Phone: MAGNESIUMon 01-03-2022 Magnesium [Mass/Vol] 1.80 mg/dL Normal 1.60 - 2.40 [facility] Comment on above: Performed By: #### M G #### [facility] [address] [place] [address] Magnesium, Serumon 2 Magnesium [Mass/Vol] 1.80 mg/dL See Below [facility]enter [facility] Work Phone: Comment on above: Reference Range: 1.6 0 - 2.40 No Panel Informationon 01-03 >90 >90 -[facility] Work Phone: Comment on above: CALCULATIONS OF SHARON MATED GFR ARE PERFORMED USING THE 2020 CKD-EPI STUDY REFIT EQUATION WITHOUT THE RACE VARIABLE FOR THE IDMS-TRACEABLE CREATININE METHODS.https://jasn.asnjournals.org/content//ASN .1029821462 0.0 {/100_WBC} 0.0 - 0.0 [facility] Work Phone: Order Reconciliationon 01-03 Order Reconciliation Page 1 Discharge Reconciliation Document Reconciliation Type: Discharge requested on behalf of Geovanna Kahn (Advanced Practice Nurse-Admit) done by Geovanna Kahn ([facility]) Discharge - Reconciliation: 03-Jan-2022 13:19 by: Geovanna Kahn ([facility]) Discharge - Reset to Incomplete: 04-Jan-2022 12:33 by: Geovanna Kahn ([facility]) Discharge - Reconciliation: 04-Jan-2022 12:33 by: Geovanna Kahn ([facility]) Discharge - Reset to Incomplete: 04-Jan-2022 12:39 by: Bebeto Naylor) Discharge - Reconciliation: 04-Jan-2022 12:41 by: Bebeto Naylor) Discharge - Reset to Incomplete: 04-Jan-2022 15:18 by: Bebeto Naylor) Discharge - Reconciliation: 04-Jan-2022 15:19 by: Bebeto Naylor) Discharge - Reset to Incomplete: 04-Jan-2022 19:10 by: Geovanna Kahn ([facility]) Discharge - Reconciliation: 04-Jan-2022 19:10 by: Geovanna Kahn ([facility]) Home Medications EnteredHOME MEDICATIONS AT DISCHARGE DateReconciliation Comment/ Additional Information furosemide 40 mg oral tablet 1 tab(s) orally once a day 30-Dec-2021 11:34 furosemide 40 mg oral tablet 1 tab(s) orally once a day 30-Dec-2021 11:34 furosemide 40 mg oral tablet is continued as furosemide 40 mg oral tablet latanoprost 0.005% ophthalmic solution 1 drop(s) in each eye once a day (in the evening) 30-Dec-2021 12:21 latanoprost 0.005% ophthalmic solution 1 drop(s) in each eye once a day (in the evening) 30-Dec-2021 12:21 latanoprost 0.005% ophthalmic solution is continued as latanoprost 0.005% ophthalmic solution lisinopril 20 mg oral tablet 1 tab(s) orally once a day 30-Dec-2021 11:20 lisinopril 20 mg oral tablet 1 tab(s) orally once a day 30-Dec-2021 11:20 lisinopril 20 mg oral tablet is continued as lisinopril 20 mg oral tablet [place] 5 mg-325 mg oral tablet 1 tab(s) orally every 6 hours, As Needed 30-Dec-2021 13:21 [place] 5 mg-325 mg oral tablet 1 tab(s) orally every 6 hours, As Needed 04-Jan-2022 12:33 Discontinued; Discontinue from ORM Prescription is created for [place] 5 mg-325 mg oral tablet rivaroxaban 20 mg oral tablet 1 tab(s) orally once a day (in the evening) 30-Dec-2021 12:19 rivaroxaban 20 mg oral tablet 1 tab(s) orally once a day (in the evening) 30-Dec-2021 12:19 rivaroxaban 20 mg oral tablet is continued as rivaroxaban 20 mg oral tablet sotalol 120 mg oral tablet 1 tab(s) orally 2 times a day 30-Dec-2021 11:21 sotalol 120 mg oral tablet 1 tab(s) orally 2 times a day 30-Dec-2021 11:21 sotalol 120 mg oral tablet is continued as sotalol 120 mg oral tablet Current OrdersDateHOME MEDICATIONS AT DISCHARGE DateReconciliation Comment/ Additional Information Enoxaparin SubCutaneous (LOVENOX)DOSE = 60 mg SubCutaneous Every 12 Hours 01-Jan-2022 17:36 Enoxaparin SubCutaneous is not required HYDROmorphone Injectable (DILAUDID)DOSE = 0.2 mg IntraVenous Push Every 4 Hours, PRN Breakthrough pain only 01-Jan-2022 17:36 HYDROmorphone Injectable is not required Lidocaine 4% TransDermal Film (ASPERFLEX)DOSE = 1 patch TransDermal Every 24 Hours, Apply to shoulder 03-Jan-2022 10:05 Lidocaine 4% TransDermal is not required Lisinopril Tablet (PRINIVIL, ZESTRIL)DOSE = 20 mg Oral Daily 01-Jan-2022 17:44 Lisinopril is not required Ondansetron Injectable (ZOFRAN)DOSE = 4 mg IntraVenous Push Every 6 Hours, PRN Nausea & Vomiting 01-Jan-2022 17:36 Ondansetron Injectable is not required oxyCODONE 5 mg - Acetaminophen 325 mg Tablet (PERCOCET)DOSE = 1 tablet(s) Oral Every 4 Hours, PRN Pain - Mod (4-6) 01-Jan-2022 17:36 oxycodone-acetaminophen 5 mg-325 mg oral tablet 1 tab(s) orally every 6 hours, As Needed -Pain - (5-10) 04-Jan-2022 15:19 Prescription is created for oxycodone-acetaminophen 5 mg-325 mg oral tablet Polyethylene Glycol Powder for Reconstitution (MIRALAX)DOSE = 17 gram(s) Oral Daily 03-Jan-2022 13:56 Polyethylene Glycol is not required Sotalol Tablet (BETAPACE)DOSE = 120 mg Oral 2 Times a Day 01-Jan-2022 17:44 Sotalol is not required Home Medications Added During Discharge Reconciliation Discharge Discharge Diagnosis< K80.10 Cholecystitis with cholelithiasis Discharge Provider, Bebeto Naylor Discharge Disposition : .Home Condition at Discharge: Satisfactory Discharge Communication Instructions for Nursing Only: Remove IV prior to discharge from hospital. Do not remove any midline, if present, without an order from the provider. Discharge Instructions - PHR After your discharge from the hospital, two Summary of Care Documents will be available online in your Personal Health Record (PHR). 1.Consolidated-Clinical Document Architecture (C-CDA) Patient Discharge Summary This document is a summary of your hospital stay to be kept for your reference.2.C-CDA Visit Summary This document is a summary of your hospital stay to be shared with your follow-up providers (doctor, director of revenue, physical therapist, etc.). Guidelines for a Healthy Lifestyle All Active Home Medications at time of Discharge Reconciliation: 04-Jan-2022 19:10 (more content not included)... Normal [facility] CBCon 01-02-2022 Erythrocyte distribution width (RBC) [Ratio] 14.3 % Normal 11.5 - 14.5 [facility] Comment on above: Performed By: #### C BC ####[id number] [place] [address] Hematocrit (Bld) [Volume fraction] 39.3 % Low 41.0 - 52.0 [facility] Comment on above: Performed By: #### C BC ####[id number] [place] [address] Hemoglobin (Bld) [Mass/Vol] 12.9 g/dL Low 13.5 - 17.5 [facility] Comment on above: Performed By: #### C BC ####[address] [address] MCHC (RBC) [Mass/Vol] 32.8 g/dL Normal 32.0 - 36.0 [facility] Comment on above: Performed By: #### C BC ####[address] [address] MCV (RBC) [Entitic vol] 97 fL Normal 80 - 100 [facility] Comment on above: Performed By: #### C BC ####[address] [address] NUCLEATED RBC 0.0 /100 WBC Normal 0.0 - 0.0 [facility] Comment on above: Performed By: #### C BC ####[address] [address] Platelets (Bld) [#/Vol] 143 10*3/uL Low 150 - 450 [facility] Comment on above: Performed By: #### C BC ####[address] [address] RBC 4.04 x10E12/L Low 4.50 - 5.90 [facility] Comment on above: Performed By: #### C BC ####[address] [address] WBC (Bld) [#/Vol] 10.4 10*3/uL Normal 4.4 - 11.3 [facility] Comment on above: Performed By: #### C BC ####[address] [address] COMPREHENSIVE PANELon 2021 Albumin [Mass/Vol] 3.1 g/dL Low 3.4 - 5.0 [facility] Comment on above: Performed By: #### M G #### [address] [address] ALT [Catalytic activity/Vol] 111 U/L High 10 - 52 [facility] Comment on above: Result Comment: Sri ents treated with Sulfasalazine may generate falsely decreased results for ALT. Performed By: #### M G #### [address] [place] [address] AST [Catalytic activity/Vol] 71 U/L High 9 - 39 [facility] Comment on above: Performed By: #### M G #### [address] [place] [address] eGFR MALE >90 Normal >90 [facility] [facility] Comment on above: Result Comment: CALC ULATIONS OF ESTIMATED GFR ARE PERFORMED USING THE 2020 CKD-EPI STUDY REFIT EQUATION WITHOUT THE RACE VARIABLE FOR THE IDMS-TRACEABLE CREATININE METHODS. https://jasn.asnjournals.org/content/early/ASN.5845534 988 Performed By: #### M G #### [address] [place] [address] HCO3 (Bld) [Moles/Vol] 23 mmol/L Normal 21 - 32 [facility] Comment on above: Performed By: #### M G #### [address] [place] [address] ALP [Catalytic activity/Vol] 118 U/L Normal 33 - 136 [facility] marc [email or web address] Work Phone: Comment on above: Performed By: #### M G #### [address] [place] [address] Anion gap [Moles/Vol] 13 mmol/L Normal 10 - 20 [facility] marc [email or web address] Work Phone: Comment on above: Performed By: #### M G #### [address] [place] [address] Bilirubin [Mass/Vol] 2.4 mg/dL High 0.0 - 1.2 [facility] n[facility] marc [email or web address] Work Phone: Comment on above: Performed By: #### M G #### [address] [place] [address] Calcium [Mass/Vol] 8.2 mg/dL Low 8.6 - 10.3 [facility] [employer] Work Phone: Comment on above: Performed By: #### M G #### [address] [place] [address] Chloride [Moles/Vol] 104 mmol/L Normal 98 - 107 [facility] [employer] Work Phone: Comment on above: Performed By: #### M G #### [address] [place] [address] Creatinine [Mass/Vol] 0.63 mg/dL Normal 0.50 - 1.30 [facility] [employer] Work Phone: Comment on above: Reference Range: 0.5 0 - 1.30 Performed By: #### M G #### [address] [place] [address] Glucose [Mass/Vol] 160 mg/dL High 74 - 99 [facility] [employer] Work Phone: Comment on above: Performed By: #### M G #### [address] [place] [address] Potassium [Moles/Vol] 3.8 mmol/L Normal 3.5 - 5.3 [facility] [employer] Work Phone: Comment on above: Performed By: #### M G #### [address] [place] [address] Protein [Mass/Vol] 5.3 g/dL Low 6.4 - 8.2 [facility] [employer] Work Phone: Comment on above: Performed By: #### M G #### [address] [place] [address] Sodium [Moles/Vol] 136 mmol/L Normal 136 - 145 [facility] [employer] Work Phone: Comment on above: Performed By: #### M G #### [facility] [address] [facility] [place] [address] Urea nitrogen [Mass/Vol] 15 mg/dL Normal 6 - 23 [facility] LEIGHMarcela Work Phone: Comment on above: Performed By: #### M G #### [address] [place] [address] Daily Progress Note-General Internal Medicineon 01-02-2022 Daily Progress Note-General Internal Medicine Consult Type: subsequent visit/care Service: General Internal Medicine Subjective Data: RICHI HU is a 66 year old Male who is Hospital Day # 4 and POD #1 for 1. Laparoscopic cholecystectomy. Please note that this patient weighs about 540 pounds.;2. ;3. ;4. ;5. Additional Information: Sitting up in chair no acute distress. Denies any chest pain, nausea or vomiting. Reports abdominal tenderness and surgical incision sites that is being managed with pain medications. Patient to be started on Full liquid diet today. Objective Data: Objective Information: T PRBPMAPSpO2 [id number]% Date/Time01/02 8: 8: 8: 8: 8:00 Range(36.2C - 37.2C ) (44 - 65 ) (16 - 20 ) (113 - 162 )/ (51 - 72 ) (92% - 99% ) As of 01-Jan-2022 20:00:00, patient is on 2 L/min of oxygen via CPAP. Highest temp of 37.2 C was recorded at 01/02 4:00 Pain reported at 01/02 8:00: 8 = Severe Physical Exam Narrative: Physical Exam: Constitutional: Well developed, awake/alert/oriented x3, no distress, cooperative Eyes: clear sclera ENMT: no apparent injury Head/Neck: Neck supple, no apparent injury, Respiratory/Thorax: Patent airways, normal breath sounds with good chest expansion, thorax symmetric Cardiovascular: Regular, rate and rhythm, no murmurs, 2+ equal pulses of the extremities, normal S 1and S 2 Gastrointestinal: obese, Nondistended, soft,, +BS x 4 quadrants. KIMBER drain, surgical incision well approximated Musculoskeletal: ROM intact, no joint swelling, Extremities: pitting edema bilateral lower ext. wound right kennedy Skin: warm, dry, abdominal surgical incision well approximated Neurological: alert/oriented x 3, speech clear Psychiatric: appropriate mood and behavior Medication: Medications: ANTI-INFECTIVES: 1. Ertapenem IV Piggy Back: 1 gram(s) IntraVenous Piggyback Every 24 Hours CARDIOVASCULAR AGENTS: 1. Lisinopril: 20 mg Oral Daily 2. Sotalol: 120 mg Oral 2 Times a Day CENTRAL NERVOUS SYSTEM AGENTS: 1. HYDROmorphone Injectable: 0.2 mg IntraVenous Push Every 4 Hours PRN 2. oxyCODONE 5 mg - Acetaminophen 325 m tablet(s) Oral Every 4 Hours PRN 3. Ondansetron Injectable: 4 mg IntraVenous Push Every 6 Hours PRN COAGULATION MODIFIERS: 1. Enoxaparin SubCutaneous: 60 mg SubCutaneous Every 12 Hours METABOLIC AGENTS: 1. Dextrose 5% - NaCL 0.45% with Potassium CL 20 mEq Premix Fluid: 1000 mL IntraVenous Recent Lab Results: Results: CBC: 01/02/2022 07:31 \ Hgb / \ 12.9 L / WBC Plt 10.4 143 L / Hct \ / 39.3 L \ RBC: 4.04 L MCV: 97 CMP: 01/02/2022 07:31 NA+ Cl- BUN / 136 104 15 / ---- Glucose 160 H K+ HCO3- Creat \ 3.8 23 0.63 \ \ T Bili / \ 2.4 H / AST x ---- x ALT 71 Hx ---- x 111 H / Alk P \ / 118 \ Calcium : 8.2 L Anion Gap : 13 Albumin : 3.1 L T Protein : 5.3 L Assessment and Plan: Code Status: Code StatusFull Code Assessment: Impression: Intractable abdominal pain Cholecystitis with cholelithiasis transaminitis hyperbilirubinemia Afib on Xarelto Chronic diastolic CHF sleep apnea BIPAP at HS HTN Morbid obesity BMI 56.6 Plan: -NAD, S/p lap erica yesterday . KIMBER drain in place - ERCP yesterday nonbleeding gastric ulcer, biopsies performed, revealing defect consistent with stone seen on cholangiogram, choledocholithiasis was found, a biliary sphincterotomy was performed, plan for repeat ERCP in 3 months after cholecystectomy for stent removal.. - RUQ US Small gallstones in dilated gallbladder with questionable gallbladder wall thickening. Cholecystitis not excluded - cont IV Ertapenem - Full liquid diet, adv as tolerated per surgical service - oxy as needed for pain - cont IVF D5 1/2 NS with 20 K At 150 - DVtp- Xarelto, on HOLD currently on Lovenox BID, - labs in the morning - resume home medications, hold Lasix while on IVFs - POC discussed with the patient and attending Dispo: possible dc in 1-2 days pending surgical recs. DVT PPx: Xarelto, on HOLD for possible procedure Diet: NPO CODE STATUS: FULL Electronic Signatures: Geovanna Kahn (JEWEL [employer]NER BRUSHING MACHINE OPERATOR-TRUST MANAGER ASSISTANT) (Signed 02-Jan-2022 11:56) Authored: Service, Subjective Data, Objective Data, Assessment and Plan, Note Completion Last Updated: 02-Jan-2022 11:56 by Geovanna Kahn (JEWEL CORNER BRUSHING MACHINE OPERATOR-TRUST MANAGER ASSISTANT) [facility] Daily Progress Note-Surgeryo n 01-02-2022 Daily Progress Note-Surgery Service: Surgery Subjective Data: RICHI HU is a 66 year old Male who is Hospital Day # 4 and POD #1 for 1. Laparoscopic cholecystectomy. Please note that this patient weighs about 540 pounds.;2. ;3. ;4. ;5. Patient seen and examined. Denies N/V/F/C. Tolerating full liquids. Pain controlled. Currently up in chair. Urinating well. Passing flatus. No acute events overnight. Objective Data: Objective Information: T PRBPMAPSpO2 [id number]% Date/Time01/02 12: 12: 12: 12: 12:00 Range(36C - 37.2C ) (44 - 65 ) (16 - 20 ) (112 - 162 )/ (51 - 72 ) (92% - 99% ) As of 01-Jan-2022 20:00:00, patient is on 2 L/min of oxygen via CPAP. Highest temp of 37.2 C was recorded at 01/02 4:00 Pain reported at 01/02 8:00: 8 = Severe Physical Exam by System: Constitutional: Well developed, awake/alert/oriented x3, no distress, alert and cooperative Respiratory/Thorax: Patent airways, CTAB, normal breath sounds with good chest expansion, thorax symmetric Cardiovascular: Regular, rate and rhythm, no murmurs, 2+ equal pulses of the extremities, normal S 1and S 2 Gastrointestinal: Nondistended, obese abdomen, soft, no rebound tenderness or guarding. Lap sites well approximated, no surrounding erythema, no drainage or induration. Appropriately TTP. KIMBER with SS drainage. Genitourinary: No figueroa catheter Lymphatic: No significant lymphadenopathy Psychological: Appropriate mood and behavior Skin: Warm and dry, no lesions, no rashes Medication: Medications: Continuous Medications ---- 1. Dextrose 5% - NaCL 0.45% with Potassium CL 20 mEq Premix Fluid: 1000 mL IntraVenous Scheduled Medications ---- 1. Enoxaparin SubCutaneous: 60 mg SubCutaneous Every 12 Hours 2. Ertapenem IV Piggy Back: 1 gram(s) IntraVenous Piggyback Every 24 Hours 3. Lisinopril: 20 mg Oral Daily 4. Sotalol: 120 mg Oral 2 Times a Day PRN Medications ---- 1. HYDROmorphone Injectable: 0.2 mg IntraVenous Push Every 4 Hours 2. Ondansetron Injectable: 4 mg IntraVenous Push Every 6 Hours 3. oxyCODONE 5 mg - Acetaminophen 325 m tablet(s) Oral Every 4 Hours Recent Lab Results: Results: CBC: 01/02/2022 07:31 \ Hgb / \ 12.9 L / WBC Plt 10.4 143 L / Hct \ / 39.3 L \ RBC: 4.04 L MCV: 97 CMP: 01/02/2022 07:31 NA+ Cl- BUN / 136 104 15 / ---- Glucose 160 H K+ HCO3- Creat \ 3.8 23 0.63 \ \ T Bili / \ 2.4 H / AST x ---- x ALT 71 Hx ---- x 111 H / Alk P \ / 118 \ Calcium : 8.2 L Anion Gap : 13 Albumin : 3.1 L T Protein : 5.3 L Radiology Results: Results: Impression: Limited exam. The biliarytree and pancreas are not adequately visualized on this exam. Limited evaluation of the liver, likely enlarged, echogenic and difficult to penetrate, likely related to diffuse fatty infiltration. Small gallstones in dilated gallbladder with questionable gallbladder wall thickening. Cholecystitis not excluded. Clinical correlation recommended. Further evaluation with HIDA scan may be helpful. Elongated right kidney. Punctate echogenic possible vascular calcification or nonobstructivestone in the midpole. Ultrasound Right Upper Quadrant [Dec 30 2021 4:09PM] Assessment and Plan: Code Status: Code StatusFull Code Assessment: POD#1: s/p laparoscopic cholecystectomy #Cholecystitis with cholelithiasis Surgery as above expected post op course avss advance diet as tolerated pain control Nausea: antiemetics PRN LFTs trending down Maintain KIMBER for today. Can remove prior to discharge Encourage OOB and IS No antibiotics from surgery standpoint #Atrial fibrillation DVT prophylaxis: lovenox 60mg Sq BID - xarelto on hold Plan of care discussed with Dr. Washington, will defer further orders. Electronic Signatures: Taylor Walton (JEWEL [employer]NER BRUSHING MACHINE OPERATOR-TRUST MANAGER ASSISTANT) (Signed 02-Jan-2022 13:34) Authored: Service, Subjective Data, Objective Data, Assessment and Plan, Note Completion Last Updated: 02-Jan-2022 13:34 by Taylor Walton (JEWEL [employer]NER BRUSHING MACHINE OPERATOR-TRUST MANAGER ASSISTANT) Normal [facility] Laboratory - Chemistry and C hemistry - challengeon 01-02-2022 Albumin BCP dye [Mass/Vol] 3.1 g/dL below low threshold 3.4 - 5.0 [facility] [email or web address] Work Phone: ALT With P-5'-P [Catalytic activity/Vol] 111 U/L above high threshold 10 - 52 [facility] [email or web address] Work Phone: Comment on above: Patients treated wit h Sulfasalazine may generate falsely decreased results for ALT. AST With P-5'-P [Catalytic activity/Vol] 71 U/L above high threshold 9 - 39 [facility] [email or web address] Work Phone: CO2 [Moles/Vol] 23 mmol/L 21 - 32 [facility] [employer] Work Phone: Laboratory - Hematology and Cell countson 01-02-2022 Erythrocyte distribution width (RBC) [Ratio] 14.3 % See Below [facility] [email or web address] Work Phone: Comment on above: Reference Range: 11. 5 - 14.5 Hematocrit (Bld) [Volume fraction] 39.3 % below low threshold See Below [facility] [email or web address] Work Phone: Comment on above: Reference Range: 41. 0 - 52.0 Hemoglobin (Bld) [Mass/Vol] 12.9 g/dL below low threshold See Below [facility] [email or web address] Work Phone: Comment on above: Reference Range: 13. 5 - 17.5 MCHC (RBC) [Mass/Vol] 32.8 g/dL See Below [facility] [email or web address] Work Phone: Comment on above: Reference Range: 32. 0 - 36.0 MCV (RBC) [Entitic vol] 97 fL 80 - 100 [facility] [email or web address] Work Phone: Platelets (Bld) [#/Vol] 143 10*3/uL below low threshold 150 - 450 [facility] Work Phone: RBC (Bld) [#/Vol] 4.04 {x10E12/L} below low threshold See Below [facility] Work Phone: Comment on above: Reference Range: 4.5 0 - 5.90 WBC (Bld) [#/Vol] 10.4 10*3/uL 4.4 - 11.3 [facility] Work Phone: Magnesium, Serumon Magnesium [Mass/Vol] 1.80 mg/dL Normal 1.60 - 2.40 [facility] Work Phone: Comment on above: Reference Range: 1.6 0 - 2.40 Performed By: #### M G #### [address] [address] No Panel Informationon 01-02 >90 >90 [facility] Work Phone: Comment on above: CALCULATIONS OF SHARON MATED GFR ARE PERFORMED USING THE 2020 CKD-EPI STUDY REFIT EQUATION WITHOUT THE RACE VARIABLE FOR THE IDMS-TRACEABLE CREATININE METHODS.https://jasn.asnjournals.org/content/early//ASN .4815704875 0.0 {/100_WBC} 0.0 - 0.0 [facility] Work Phone: CBCon 01-01-2022 Erythrocyte distribution width (RBC) [Ratio] 14.1 % Normal 11.5 - 14.5 [facility] Comment on above: Performed By: #### C BC #### [address] [address] Hematocrit (Bld) [Volume fraction] 39.6 % Low 41.0 - 52.0 [facility] Comment on above: Performed By: #### C BC #### [address] [address] Hemoglobin (Bld) [Mass/Vol] 13.1 g/dL Low 13.5 - 17.5 [facility] Comment on above: Performed By: #### C BC #### [address] [address] MCHC (RBC) [Mass/Vol] 33.1 g/dL Normal 32.0 - 36.0 [facility] Comment on above: Performed By: #### C BC #### [address] [address] MCV (RBC) [Entitic vol] 95 fL Normal 80 - 100 [facility] Comment on above: Performed By: #### C BC #### [address] [address] NUCLEATED RBC 0.0 /100 WBC Normal 0.0 - 0.0 [facility] Comment on above: Performed By: #### C BC #### [address] [address] Platelets (Bld) [#/Vol] 109 10*3/uL Low 150 - 450 [facility] Comment on above: Performed By: #### C BC #### [address] [address] RBC 4.15 x10E12/L Low 4.50 - 5.90 [facility] Comment on above: Performed By: #### C BC #### [address] [address] WBC (Bld) [#/Vol] 6.3 10*3/uL Normal 4.4 - 11.3 [facility] Comment on above: Performed By: #### C BC #### [address] [address] COMPREHENSIVE PANELon 2021 Albumin [Mass/Vol] 3.2 g/dL Low 3.4 - 5.0 [facility] Comment on above: Performed By: #### C MP ####[facility] [facility] [place] [address] ALP [Catalytic activity/Vol] 136 U/L Normal 33 - 136 [facility] Comment on above: Performed By: #### C MP ####[address] [place] [address] ALT [Catalytic activity/Vol] 137 U/L High 10 - 52 [facility] Comment on above: Result Comment: Sri ents treated with Sulfasalazine may generate falsely decreased results for ALT. Performed By: #### C MP ####[address] [address] Anion gap [Moles/Vol] 14 mmol/L Normal 10 - 20 [facility] Comment on above: Performed By: #### C MP ####[address] [address] AST [Catalytic activity/Vol] 102 U/L High 9 - 39 [facility] Comment on above: Performed By: #### C MP ####[address] [address] Bilirubin [Mass/Vol] 3.5 mg/dL High 0.0 - 1.2 [facility] Comment on above: Performed By: #### C MP ####[address] [address] Calcium [Mass/Vol] 8.4 mg/dL Low 8.6 - 10.3 [facility] Comment on above: Performed By: #### C MP ####[address] [address] Chloride [Moles/Vol] 103 mmol/L Normal 98 - 107 [facility] Comment on above: Performed By: #### C MP ####[address] [place] [address] Creatinine [Mass/Vol] 0.63 mg/dL Normal 0.50 - 1.30 [facility] Comment on above: Performed By: #### C MP ####[address] [place] [address] eGFR MALE >90 Normal >90 [facility] Comment on above: Result Comment: CALC ULATIONS OF ESTIMATED GFR ARE PERFORMED USING THE 2020 CKD-EPI STUDY REFIT EQUATION WITHOUT THE RACE VARIABLE FOR THE IDMS-TRACEABLE CREATININE METHODS. https://jasn.asnjournals.org/content/early/ASN.8908186 988 Performed By: #### C MP ####[address] [address] Glucose [Mass/Vol] 110 mg/dL High 74 - 99 [facility] Comment on above: Performed By: #### C MP ####[address] [address] HCO3 (Bld) [Moles/Vol] 24 mmol/L Normal 21 - 32 [facility] Comment on above: Performed By: #### C MP ####[address] [address] Potassium [Moles/Vol] 3.7 mmol/L Normal 3.5 - 5.3 [facility] Comment on above: Performed By: #### C MP ####[address] [address] Protein [Mass/Vol] 5.5 g/dL Low 6.4 - 8.2 [facility] Comment on above: Performed By: #### C MP ####[address] [address] Sodium [Moles/Vol] 137 mmol/L Normal 136 - 145 [facility] Comment on above: Performed By: #### C MP ####[address] [address] Urea nitrogen [Mass/Vol] 14 mg/dL Normal 6 - 23 [facility] Comment on above: Performed By: #### C MP ####[address] [address] Daily Progress Note-Gastroen terologyon 01-01-2022 Daily Progress Note-Gastroenterolog y Service: Gastroenterology Subjective Data: HURICHI Guthrie is a 66 year old Male who is Hospital Day # 3. Pt lying in bed in NAD. s/p ERCP with stent placement. Liver enzymes downtrending, bilirubin 7.3 to 3.5 today. Plan for cholecystectomy today. Repeat ERCP in 3 months for stent removal. Objective Data: Objective Information: T PRBPMAPSpO2 [id number]/6693% Date/Time01/01 8: 8: 8: 8: 8:00 Range(35.6C - 36.9C ) (44 - 64 ) (16 - 20 ) (106 - 140 )/ (42 - 72 ) (92% - 99% ) Highest temp of 36.9 C was recorded at 01/01 8:00 Pain reported at 01/01 8:00: 3 = Mild Physical Exam by System: Constitutional: Pleasant and interactive obese male, in NAD Eyes: PERRL +3, scleral icterus ENMT: Mucous membranes moist, no lesions seen Respiratory/Thorax: CTAB, even and unlabored Cardiovascular: RRR, normal S1, S2, no m,r,g Gastrointestinal: +BS, soft round, NT Musculoskeletal: ROM intact, no joint swelling, 5/5 strength Extremities: Extremities warm, no edema or cyanosis Neurological: No focal deficits, A&Ox3 Psychological: Appropriate mood and behavior Skin: Warm and dry, no rash or ecchymosis, jaundice Recent Lab Results: Results: I have reviewed these laboratory results: Complete Blood Count Trending View [id number] 08:46:00 31-Dec-2021 06:08:00 White Blood Cell Count6.3 6.0 Nucleated Erythrocyte Count0.0 0.0 Red Blood Cell Count4.15 L 4.06 L HGB13.1 L 13.0 L HCT39.6 L 39.0 L MCV95 96 MCHC33.1 33.3 UEO988 L 138 L RDW-CV14.1 14.3 Comprehensive Metabolic Panel Trending View [id number] 08:46:00 31-Dec-2021 06:08:00 Glucose, Ptsci686 H 112 H NA137 137 K3.7 3.5 CL103 103 Bicarbonate, Serum24 27 Anion Gap, Serum14 11 BUN14 11 CREAT0.63 0.79 GFR Male>90 >90 Calcium, Serum8.4 L 8.3 L ALB3.2 L 3.2 L HLQN303 118 T Pro5.5 L 5.3 L T Bili3.5 H 7.3 H Alanine Aminotransferase, Ndtds746 H 165 H Aspartate Transaminase, Olbbs048 H 170 H Magnesium, Serum Trending View [id number] 08:46:00 31-Dec-2021 06:08:00 Magnesium, Serum1.90 1.80 Urinalysis 30-Dec-2021 17:21:00 ResultValue Color, Urine JAVY Reference Range: STRAW,YELLOW Appearance, Urine CLEAR Specific Vevay, Urine 1.044 H pH, Urine 5.0 Protein, Urine NEGATIVE Glucose, Urine NEGATIVE Blood, Urine NEGATIVE Ketones, Urine NEGATIVE Bilirubin, Urine SMALL(1+) A Urobilinogen, Urine 4.0 H Nitrite, Urine NEGATIVE Leukocyte Esterase, Urine NEGATIVE Radiology Results: Results: Impression: Limited exam. The biliarytree and pancreas are not adequately visualized on this exam. Limited evaluation of the liver, likely enlarged, echogenic and difficult to penetrate, likely related to diffuse fatty infiltration. Small gallstones in dilated gallbladder with questionable gallbladder wall thickening. Cholecystitis not excluded. Clinical correlation recommended. Further evaluation with HIDA scan may be helpful. Elongated right kidney. Punctate echogenic possible vascular calcification or nonobstructivestone in the midpole. Ultrasound Right Upper Quadrant [Dec 30 2021 4:09PM] Assessment and Plan: Code Status: Code StatusFull Code Assessment: RICHI HU is a 66 year old Male with Gi consult for abd pain. PMH significant for A. fib on Xarelto, CHF, HTN. Patient presented with abdominal pain steadily progressed over the past day. He presented to [facility] and was transferred for further management. Imaging there consistent with cholelithiasis without cholecystitis. No leukocytosis, liver enzymes noted T bili 2.7->7.3, ALT 71->165/AST 95->170, ALP 123->118. Direct bili 2.7. RUQ ultrasound unable to evaluate biliary tree. Patient underwent ERCP with Dr. Abad yesterday noting nonbleeding gastric ulcer with no stigmata of bleeding. Biopsy of lesser curvature of stomach. Pus in major papula. Filling defect with choledocholithiasis found. Complete removal with biliary sphincterotomy and balloon extraction. Plastic stent placed into CBD. Indomethacin given to decrease post ERCP pancreatitis risk. Patient tolerated well. Patient feeling much better this morning with no nausea and much improved abdominal discomfort. Liver enzymes downtrending. Bilirubin improved from 7.3 to 3.5 this morning. # abd pain- improved- s/p ERCP # nausea-improved # transaminitis/hyperbilirubin emia- downtrending # cholelithiasis # morbid obesity Plan: - continue supportive care - keep NPO - plan for cholecystectomy today - continue to trend liver enzymes - continue to hold anticoagulation - continue antibiotics per primary team - continue analgesics and antiemetics as needed Plan has been discussed with Dr. Blackwell. GI will sign off. MAGDI Wong Electronic Signatures: Natali Snow (WILLIAM-TATO) (Signed 01-Jan-2022 14:55) Authored: (more content not included)... Normal [facility] Daily Progress Note-General Internal Medicineon 01-01-2022 Daily Progress Note-General Internal Medicine Consult Type: subsequent visit/care Service: General Internal Medicine Subjective Data: RICHI HU is a 66 year old Male who is Hospital Day # 3. Additional Information: Patient sitting up in bed no acute distress. Denies any chest, nausea /vomiting. Reports abdominal pain is significantly improved since admission. Plan for lap cholecystectomy today Objective Data: Objective Information: T PRBPMAPSpO2 [id number]/6693% Date/Time01/01 8: 8: 8: 8: 8:00 Range(35.6C - 36.9C ) (44 - 64 ) (16 - 20 ) (106 - 140 )/ (42 - 72 ) (92% - 99% ) Highest temp of 36.9 C was recorded at 01/01 8:00 Pain reported at 01/01 8:00: 3 = Mild Physical Exam Narrative: Physical Exam: Constitutional: Well developed, awake/alert/oriented x3, no distress, cooperative Eyes: clear sclera ENMT: no apparent injury Head/Neck: Neck supple, no apparent injury, Respiratory/Thorax: Patent airways, normal breath sounds with good chest expansion, thorax symmetric Cardiovascular: Regular, rate and rhythm, no murmurs, 2+ equal pulses of the extremities, normal S 1and S 2 Gastrointestinal: obese, Nondistended, soft, mildly tender, , +BS x 4 quadrants Musculoskeletal: ROM intact, no joint swelling, Extremities: pitting edema bilateral lower ext. wound right kennedy Skin: warm, dry, Neurological: alert/oriented x 3, speech clear Psychiatric: appropriate mood and behavior Recent Lab Results: Results: CBC: 01/01/2022 08:46 \ Hgb / \ 13.1 L / WBC Plt 6.3 109 L / Hct \ / 39.6 L \ RBC: 4.15 L MCV: 95 CMP: 01/01/2022 08:46 NA+ Cl- BUN / 137 103 14 / ---- Glucose 110 H K+ HCO3- Creat \ 3.7 24 0.63 \ \ T Bili / \ 3.5 H / AST x ---- x ALT 102 Hx ---- x 137 H / Alk P \ / 136 \ Calcium : 8.4 L Anion Gap : 14 Albumin : 3.2 L T Protein : 5.5 L Radiology Results: Results: Ultrasound Right Upper Quadrant [Dec 30 2021 4:09PM] Assessment and Plan: Code Status: Code StatusFull Code Assessment: Impression: Intractable abdominal pain Cholecystitis with cholelithiasis transaminitis hyperbilirubinemia Afib on Xarelto Chronic diastolic CHF sleep apnea BIPAP at HS HTN Morbid obesity BMI 56.6 Plan: -NAD, reports abdominal pains improved greatly since admission - plan for lap erica with surgery today. - ERCP yesterday nonbleeding gastric ulcer, biopsies performed, revealing defect consistent with stone seen on cholangiogram, choledocholithiasis was found, a biliary sphincterotomy was performed, plan for repeat ERCP in 3 months after cholecystectomy for stent removal.. - RUQ US Small gallstones in dilated gallbladder with questionable gallbladder wall thickening. Cholecystitis not excluded - start on prophylactic antibiotics for possible erica , cont IV Ertapenem - NPO for surgery today - IV morphine as needed for pain - IV Zofran as needed for nausea , use with caution, pt on sotalol, obtain EKG for baseline QTc - cont IVF LR at 100 x 1L while NPO - DVtp- Xarelto, on HOLD for possible intervention - labs in the morning - resume home medications, hold Lasix while on IVFs - POC discussed with the patient and attending DVT PPx: Xarelto, on HOLD for possible procedure Diet: NPO CODE STATUS: FULL Electronic Signatures: Geovanna Kahn (JEWEL CORNER BRUSHING MACHINE OPERATOR-TRUST MANAGER ASSISTANT) (Signed 01-Jan-2022 17:38) Authored: Service, Subjective Data, Objective Data, Assessment and Plan, Note Completion Last Updated: 01-Jan-2022 17:38 by Geovanna Kahn (JEWEL CORNER BRUSHING MACHINE OPERATOR-TRUST MANAGER ASSISTANT) [facility] Discharge Planning [id number] 1 03-03-2021 Discharge Planning Note2 Discharge Planning: Anticipated Discharge [id number] Discharge Planning 01/01/2022 Richi Hu is a 66 year old male who was admitted to [facility] with abdominal Pain. Chart reviewed, policy writer sales spoke with patient- introduced self and explained role. Brief assessment completed as was getting ready to go to surgery. He reports that he lives with spouse who is supportive and able to assist. Prior level of functioning independent. Nursing mobility am-pac on admission was 18. He did not anticipate will have any needs when ready for discharge. Care Transitions team to follow-up after surgery for any needs on discharge. JOHANNA Roque Assessment: Discharge Planning Assessment [id number] Primary Contact Name and NumberHoma [phone](1) Lives Withspouse(1) Living Arrangementshouse(1) Stated Reason for Admissiontransferred for stomach pain(1) [place] Resource/Environmental Concernsnone(1) [place]) Services Anticipated at [facility](1) Discharge Documentation: Discharge/Transfer Date/[id number] Discharged Accompanied Byfamily member Transportation Methodprivate car Discharge Modewheelchair Code StatusCode Status order at time of discharge: Full Code Discharge Order Writtenyes [place] DNR Form Sent with Patient and/or Familyn/a Final Disposition.Home Electronic Signatures: Cyndi Nava (GRACE) (Signed 01-Jan-2022 12:28) Authored: Discharge Planning, Assessment Seb Raza (STAFF N) (Signed 03-Jan-2022 18:56) Authored: Discharge Planning, Discharge Documentation Last Updated: 03-Jan-2022 18:56 by Seb Raza (STAFF N) References: 1. Data Referenced From Patient Profile - Adult v2 30-Dec-2021 11:15 Normal [facility] Discharge [id number] Discharge Profile2 Discharge Orders: Anticipated Discharge Date: Anticipated Discharge [id number] DNAR: Code Status at Discharge: Full Code Activity: activity as tolerated. Diet: Dietlow fat, slowly advance diet as tolerated Additional Orders: Additional Instructions Follow up with GI for Repeat ERCP in 3 months for stent removal. Hospital Course (Home Care/Gold Form): Hospital Course: Hospital Course: include significant abnormal lab values RICHI HU is a 66 year old Male with a past medical history of afib Xarelto Diastolic CHF, HLD/ HTN transferred from [place] ED with chief complaint of abdominal pain. Patient reports that on Thursday night he still does not feel well. However when he woke up Thursday morning he felt that pain in his lower abdominal pain from his umbilicus over to his right side. States around 330 that afternoon his abdominal pain started to aggressively get worse until about 930p the pain became unbearable. His pain was described as 10 out of 10 continuous with intermittent throbbing/sharp pain. His daughter gave him Pepto-Bismol with no improvement. CT abdomen pelvis obtained at outside ED showed mild bilateral ectasis, multiple small gallstones, and small left renal cyst measuring 1.3 cm, no appendicitis or obstruction. Patient was started on IVFs, made NPO and started on IV antibiotics. GI and surgery was consulted. RUQ US Small gallstones in dilated gallbladder with questionable gallbladder wall thickening. Cholecystitis not excluded. ERCP performed on 12/31 which showed nonbleeding gastric ulcer, biopsies performed, revealing defect consistent with stone seen on cholangiogram, choledocholithiasis was found, a biliary sphincterotomy was performed, plan for repeat ERCP in 3 months after cholecystectomy for stent removal. Liver enzymes started to downtrend. Patient taken for Lap erica on 01/01, he tolerated the procedure well. He was able to tolerate advancement in his diet to GI/soft. Surgery recommended no antibiotics were needed and KIMBER drain was removed before discharge. Xarelto was resumed on discharge. Patient is being discharged stable condition to follow-up with his PCP in 1 week, surgery as outpatient and GI in 3 months for stent removal. Discharge time greater than 34 minutes. Greater than 50% of time spent on counseling patient, and coordination of care. Provider FINAL REVIEW of Orders: Final Review: Final Review of Medication Reconciliation and Orders Completedby JEWEL CORNER BRUSHING MACHINE OPERATOR Reviewing ProviderMAGDI Griffiths at 03-Jan-2022 13:14:54 Appointments: Follow-Up Appointment 01: Physician/Dept/ServiceDrSon Abad Reason for ReferralGI- Repeat ERCP in 3 months for stent removal. Phone [phone] Commentsplease call to schedule Follow-Up Appointment 02: Physician/Dept/ServiceDr. Washington Reason for ReferralSurgery Call to Schedule in10-14 days Phone [phone] Commentsplease call to schedule Follow-Up Appointment 03: Physician/Dept/Servicepcarmando Reason for Referralhospital follow up with primary care doctor Call to Schedule in1 week Commentsplease call to schedule Electronic Signatures: Geovanna Kahn (JEWEL CORNER BRUSHING MACHINE OPERATOR-TRUST MANAGER ASSISTANT) (Signed 03-Jan-2022 13:14) Authored: Discharge Orders, Hospital Course (Home Care/Gold Form), Provider FINAL REVIEW of Orders, Appointments, Gold Form - Production Supervisor Trainee Summary Last Updated: 03-Jan-2022 13:14 by Geovanna Kahn (JEWEL CORNER BRUSHING MACHINE OPERATOR-TRUST MANAGER ASSISTANT) Normal [facility] HEPATIC FUNCTION PANELon Albumin [Mass/Vol] 3.4 g/dL Normal 3.4 - 5.0 [facility] Comment on above: Performed By: #### M G #### [facility] [address] [place] [address] ALP [Catalytic activity/Vol] 160 U/L High 33 - 136 [facility] Comment on above: Performed By: #### M G #### [address] [address] ALT [Catalytic activity/Vol] 155 U/L High 10 - 52 [facility] Comment on above: Result Comment: Sri ents treated with Sulfasalazine may generate falsely decreased results for ALT. Performed By: #### M G #### [address] [address] AST [Catalytic activity/Vol] 132 U/L High 9 - 39 [facility] Comment on above: Result Comment: MILD HEMOLYSIS DETECTED. The result may be falsely elevated due to hemolysis or other interferents. Clinical correlation is recommended. Repeat testing may be considered. Performed By: #### M G #### [address] [address] Bilirubin [Mass/Vol] 2.9 mg/dL High 0.0 - 1.2 [facility] Comment on above: Performed By: #### M G #### [address] [address] Bilirubin.indirect [Mass/Vol] 1.2 mg/dL High 0.0 - 0.3 [facility] Comment on above: Result Comment: MILD HEMOLYSIS DETECTED. The result may be falsely decreased due to hemolysis or other interferents. Clinical correlation is recommended. Repeat testing may be considered. Performed By: #### M G #### [address] [address] Protein [Mass/Vol] 6.3 g/dL Low 6.4 - 8.2 [facility] Comment on above: Performed By: #### M G #### [address] [address] Hepatic Function Panelon Albumin BCP dye [Mass/Vol] 3.4 g/dL 3.4 - 5.0 [facility] Work Phone: ALP [Catalytic activity/Vol] 160 U/L above high threshold 33 - 136 [facility] Work Phone: ALT With P-5'-P [Catalytic activity/Vol] 155 U/L above high threshold 10 - 52 [facility] Work Phone: Comment on above: Patients treated wit h Sulfasalazine may generate falsely decreased results for ALT. AST With P-5'-P [Catalytic activity/Vol] 132 U/L above high threshold 9 - 39 [facility] [employer] Work Phone: Comment on above: MILD HEMOLYSIS DETEC LASHELL. The result may be falsely elevated due tohemolysis or other interferents. Clinical correlation is recommended.Repeat testing may be considered. Bilirubin [Mass/Vol] 2.9 mg/dL above high threshold 0.0 - 1.2 [facility] [employer] Work Phone: Bilirubin.direct [Mass/Vol] 1.2 mg/dL above high threshold 0.0 - 0.3 [facility] [employer] Work Phone: Comment on above: MILD HEMOLYSIS DETEC LASHELL. The result may be falsely decreased due tohemolysis or other interferents. Clinical correlation is recommended.Repeat testing may be considered. Protein [Mass/Vol] 6.3 g/dL below low threshold 6.4 - 8.2 [facility] [employer] Work Phone: Laboratory - Chemistry and C hemistry - challengeon 01-01-2022 Albumin BCP dye [Mass/Vol] 3.2 g/dL below low threshold 3.4 - 5.0 [facility] [employer] Work Phone: ALP [Catalytic activity/Vol] 136 U/L 33 - 136 [facility] [employer] Work Phone: ALT With P-5'-P [Catalytic activity/Vol] 137 U/L above high threshold 10 - 52 [facility] Work Phone: Comment on above: Patients treated wit h Sulfasalazine may generate falsely decreased results for ALT. Anion gap [Moles/Vol] 14 mmol/L 10 - 20 [facility] [employer] Work Phone: AST With P-5'-P [Catalytic activity/Vol] 102 U/L above high threshold 9 - 39 [facility] Work Phone: Bilirubin [Mass/Vol] 3.5 mg/dL above high threshold 0.0 - 1.2 -[facility] Work Phone: Calcium [Mass/Vol] 8.4 mg/dL below low threshold 8.6 - 10.3 -[facility] Work Phone: Chloride [Moles/Vol] 103 mmol/L 98 - 107 [facility] Work Phone: CO2 [Moles/Vol] 24 mmol/L 21 - 32 -[facility] Work Phone: Creatinine [Mass/Vol] 0.63 mg/dL See Below -[facility] Work Phone: Comment on above: Reference Range: 0.5 0 - 1.30 Glucose [Mass/Vol] 110 mg/dL above high threshold 74 - 99 -[facility] Work Phone: Potassium [Moles/Vol] 3.7 mmol/L 3.5 - 5.3 -[facility] Work Phone: Protein [Mass/Vol] 5.5 g/dL below low threshold 6.4 - 8.2 -[facility] Work Phone: Sodium [Moles/Vol] 137 mmol/L 136 - 145 [facility] Work Phone: Urea nitrogen [Mass/Vol] 14 mg/dL 6 - 23 [facility] Work Phone: Laboratory - Hematology and Cell countson 01-01-2022 Erythrocyte distribution width (RBC) [Ratio] 14.1 % See Below [facility] Work Phone: Comment on above: Reference Range: 11. 5 - 14.5 Hematocrit (Bld) [Volume fraction] 39.6 % below low threshold See Below [facility] Work Phone: Comment on above: Reference Range: 41. 0 - 52.0 Hemoglobin (Bld) [Mass/Vol] 13.1 g/dL below low threshold See Below [facility] Work Phone: Comment on above: Reference Range: 13. 5 - 17.5 MCHC (RBC) [Mass/Vol] 33.1 g/dL See Below [facility] Work Phone: Comment on above: Reference Range: 32. 0 - 36.0 MCV (RBC) [Entitic vol] 95 fL 80 - 100 [facility] Work Phone: Platelets (Bld) [#/Vol] 109 10*3/uL below low threshold 150 - 450 [facility] Work Phone: RBC (Bld) [#/Vol] 4.15 {x10E12/L} below low threshold See Below [facility] Work Phone: Comment on above: Reference Range: 4.5 0 - 5.90 WBC (Bld) [#/Vol] 6.3 10*3/uL 4.4 - 11.3 [facility] Work Phone: MAGNESIUMon 01-01-2022 Magnesium [Mass/Vol] 1.90 mg/dL Normal 1.60 - 2.40 [facility] Comment on above: Performed By: #### M G #### [facility] [address] [place] [address] Magnesium, Serumon 2 Magnesium [Mass/Vol] 1.90 mg/dL See Below [facility] Work Phone: Comment on above: Reference Range: 1.6 0 - 2.40 No Panel Informationon 01-01 >90 >90 [facility] Work Phone: Comment on above: CALCULATIONS OF SHARON MATED GFR ARE PERFORMED USING THE 2020 CKD-EPI STUDY REFIT EQUATION WITHOUT THE RACE VARIABLE FOR THE IDMS-TRACEABLE CREATININE METHODS.https://jasn.asnjournals.org/content/early/ASN .3379812591 0.0 {/100_WBC} 0.0 - 0.0 [facility] Work Phone: Operative Reports - [place] on 01-01-2022 Operative Reports - [place] SURGEON: Jerrell Washington MD POSTOPERATIVE DIAGNOSES: 1. Cholecystitis with cholelithiasis. 2. Obstructive jaundice. The patient is status post ERCP and placement of [address] Abad. The patient's bilirubin before the ERCP was 7.2. POSTOPERATIVE DIAGNOSIS: 1. Cholecystitis with cholelithiasis. 2. Obstructive jaundice. The patient is status post ERCP and placement of [address] Abad. The patient's bilirubin before the ERCP was 7.2. PROCEDURE DONE: Laparoscopic cholecystectomy. Intraoperative cholangiogram was not performed because of the patient already had ERCP done and stent placement. Please note that this patient weighs about 540 pounds. INDICATIONS FOR PROCEDURE: This is a 66-year-old male patient who was transferred to [facility] from [facility]. The patient presented at [place] complaining of epigastric right upper quadrant pain radiating to his back. The patient was also markedly jaundiced at that time. The patient was transferred to [facility]. I was not told about the patient's weight. The patient underwent ERCP by Dr. Dinary and 2 stents were placed. Multiple stones were removed from the common duct. The procedure was done on December 31, 2021. The patient subsequently was scheduled for surgery. OPERATIVE REPORT: The patient was taken to the operating room, put in a supine position. After inducing general anesthesia with the help of the endotracheal intubation, the whole abdominal wall was prepped and draped in the usual manner. A skin incision was made within the epigastric area. After incising the skin and subcutaneous tissue, Harjeet's fascia was identified, which was then incised in the direction of skin incision. The right anterior rectus sheath was partially divided. Muscle fibers were . Posterior rectus sheath and peritoneum were divided and the abdominal cavity was entered in. After entering the abdominal cavity, stay sutures were applied with 0 Vicryl stitch. Normal Riddhi trocar was introduced. A long 5-mm Surgiport was then introduced supraumbilically. and 2 long 5-mm Surgiports were introduced in the right upper quadrant. The patient was placed in the reverse Trendelenburg position, was rotated toward the left side. Fundus of the gallbladder was then grasped and the lateral traction was applied. Dean pouch of the gallbladder was grasped and the lateral traction was applied. Peritoneum overlying the cystic duct was then dissected. Junction of cystic duct and the gallbladder were identified. Endoclips were applied on the cystic duct and it was then divided in between Endoclips. The cystic artery was identified. Endoclips were applied on the cystic artery and it was also divided. Cholangiogram was not performed because patient is very hairy patient weighs about 540 pounds and the patient already is status post ERCP. The gallbladder was removed from the liver by dissecting the peritoneum over the gallbladder. Gallbladder was dissected free from the liver bed. Gallbladder was subsequently delivered with the help of the Endobag. All the instruments were removed. Fascia was closed with 0 Vicryl stitch. Subcutaneous tissue was irrigated and skin was closed with subcuticular closure. A dry dressing was applied. The patient tolerated procedure very well and was taken back to recovery room in a satisfactory condition. Jerrell Washington MD EST EST DICTATION NUMBER: [id number] INTERNAL JOB NUMBER: [id number] CC: PCP UNKNOWN Jerrell Washington MD Electronic Signatures: Jerrell Washington) (Signed on 14-Jan-2022 11:26) Authored Unsigned, Draft (SYS GENERATED) (Entered on 14-Jan-2022 04:43) Entered Last Updated: 14-Jan-2022 11:26 by Jerrell Washington) [facility] Order Reconciliationon 01-01 Order Reconciliation Page 1 Transfer Reconciliation Document Reconciliation Type: Transfer from OR requested on behalf of Jerrell Washington (Physician) done by Jerrell Washington) Transfer from OR - Reconciliation: 01-Jan-2022 17:32 by: Jerrell Washington) Pre-Transfer OrdersDateReconciliation Comment/ Additional InformationPost Transfer OrdersDateStop Medications Acetaminophen Tablet (TYLENOL)DOSE = 650 mg Oral Every 4 Hours, PRN pain or feverClinician Notes: pain 1-10, fever > 38C 30-Dec-2021 20:15 Albuterol 2.5 mg/ 3 mL Nebulizer Soln (PROVENTIL)DOSE = 3 mL Inhalation Once via Nebulizer, PRN Wheezing (PACU)Clinician Notes: Anthony-operative order ONLY 31-Dec-2021 15:11 Aztreonam IV Piggy Back in Sodium Chloride 0.9% 50 mL (AZACTAM)DOSE = 1,000 mg Every 8 HoursRecommended Infusion Time: 30 minute(s) 30-Dec-2021 12:58 Bisacodyl Enteric Coated Enteric Coated Tablet (DULCOLAX)DOSE = 5 mg Oral Once, PRN Constipation 30-Dec-2021 11:11 Ertapenem IV Piggy Back in Sodium Chloride 0.9% 50 mL (gram(s))DOSE = 1 gram(s) Every 24 HoursRecommended Infusion Time: 30 minute(s) 31-Dec-2021 17:00 Furosemide Tablet (LASIX)DOSE = 40 mg Oral Daily 30-Dec-2021 11:40 hydrALAZINE (APRESOLINE) Injectable DOSE = 5 mg IntraVenous Push Every 30 Minutes, PRN for SPB>180 and HR<60.Clinician Notes: Anthony-operative order ONLY 31-Dec-2021 15:11 HYDROmorphone Injectable (DILAUDID)DOSE = 0.5 mg IntraVenous Push Every 5 Minutes, PRN Pain - Mod (4-6) (PACU)Clinician Notes: Anthony-operative order ONLYMax total of 4 mg regardless of dose. 31-Dec-2021 15:11 HYDROmorphone Injectable (DILAUDID)DOSE = 1 mg IntraVenous Push Every 5 Minutes, PRN Pain - Severe (7-10) (PACU)Clinician Notes: Anthony-operative order ONLYMax total of 4 mg regardless of dose. 31-Dec-2021 15:11 Labetalol Injectable (TRANDATE)DOSE = 5 mg IntraVenous Push Once, PRN For SBP>180, DBP>100, HR>60Clinician Notes: Anthony-operative order ONLY 31-Dec-2021 15:11 Lisinopril Tablet (PRINIVIL, ZESTRIL)DOSE = 20 mg Oral Daily 30-Dec-2021 11:37 Magnesium Sulfate 1 gram /Dextrose 5% 100 mL Premix Soln OnceRecommended Infusion Time: 1 hour(s)Stop After 1 Doses 01-Jan-2022 10:49 Melatonin TabletDOSE = 3 mg Oral At Bedtime, PRN Insomnia 30-Dec-2021 11:11 metroNIDAZOLE (FLAGYL) 500 mg IVPB/ Premixed Soln 100 mL Every 8 HoursRecommended Infusion Time: 60 minute(s) 30-Dec-2021 11:12 Morphine Injectable DOSE = 2 mg IntraVenous Push Every 4 Hours, PRN Pain - Mod (4-6) 30-Dec-2021 11:06 Morphine Injectable DOSE = 4 mg IntraVenous Push Every 4 Hours, PRN Pain - Severe (7-10) 30-Dec-2021 11:07 Naloxone Injectable (NARCAN)DOSE = 0.2 mg IntraVenous Push Once, PRN If patient RR below 10, obtunded or unarousableClinician Notes: DO NOT ADMINISTER UNTIL PHYSiCIAN HAS BEEN NOTIFIED AND ASSESSED PATIENT 31-Dec-2021 15:11 Ondansetron Injectable (ZOFRAN)DOSE = 4 mg IntraVenous Push Every 4 Hours, PRN Nausea and/or Vomiting 30-Dec-2021 11:11 Potassium Chloride Extended Release Tablet, Extended ReleaseDOSE = 40 mEq Oral Once 01-Jan-2022 10:48 Promethazine IV Piggy Back in Sodium Chloride 0.9% 50 mL (PHENERGAN)DOSE = 6.25 mg Once, PRN persistent PONV if first line ineffectiveRecommended Infusion Time: 15 minute(s)Clinician Notes: Anthony-operative order ONLY 31-Dec-2021 15:11 Racemic EPINEPHrine 2.25% Nebulizer Solution DOSE = 0.5 mL Inhalation Every 4 Hours via Nebulizer, PRN Stridor (PACU)Clinician Notes: Anthony-operative order ONLY 31-Dec-2021 15:11 Rivaroxaban Tablet (XARELTO)DOSE = 20 mg Oral ( every 1 day: 18:00 )Clinician Notes: WITH THE EVENING MEAL 30-Dec-2021 11:38 Sodium Chloride 0.9% Injectable Flush via Peripheral LineVolume = 10 mL IntraVenous Flush Every 8 Hours and as Needed 30-Dec-2021 11:11 Sotalol Tablet (BETAPACE)DOSE = 120 mg Oral 2 Times a Day 30-Dec-2021 11:37 IV Fluids Lactated Ringers Infusion IV Bag Volume = 1,000 mL Run at: 100 mL/hr IntraVenous Clinician Notes: Anthony-operative order ONLY 31-Dec-2021 15:11 Lactated Ringers Infusion IV Bag Volume = 1,000 mL Run at: 100 mL/hr IntraVenous Stop After 1 Doses 31-Dec-2021 05:52 Lactated Ringers Infusion IV Bag Volume = 1,000 mL Run at: 100 mL/hr IntraVenous Stop After 1 Doses 01-Jan-2022 08:41 Surgery Medications Dexamethasone 4 mg Inj 1 mL_IPRO SolutionGive 4 mg, IntraVenous, ONCE 31-Dec-2021 14:58 Glucagon 1 mg Inj_IPRO SolutionGive 0.5 mg, IntraVenous, ONCE 31-Dec-2021 15:10 Glycopyrrolate 0.2 mg/mL Inj 1 mL_IPRO SolutionGive 0.3 mg, IntraVenous, ONCE 31-Dec-2021 14:50 Ketamine 10 mg/mL 5 mL Syringe_IPRO SolutionGive 30 mg, IntraVenous, ONCE 31-Dec-2021 14:46 LIDOCAINE 2% PF 5ML VIAL_IPRO SolutionGive 100 mg, IntraVenous, ONCE 31-Dec-2021 14:40 Ondansetron 4 mg/2 mL Inj_IPRO SolutionGive 4 mg, IntraVenous, ONCE 31-Dec-2021 14:44 Propofol 10 mg/mL 20 mL Inj_IPRO SolutionGive 200 mg, IntraVenous, ONCE 31-Dec-2021 14:40 Rocuronium 10 mg (more content not included)... Normal [facility] Surgical Pathology Depar tmenton 01-01-2022 [facility] Surgical Pathology Department Name RICHI HU Pathologist: ÁNGEL RODRIGUEZ MD Date of Procedure: 01/01/2022 Date Received: 01/01/2022 Date Reported 01/25/2022 Submitting Physician: JERRELL WASHINGTON MD Location: [address] Copy To/Referring/Attending: ADOLFO ENRIQUEZ DO Other External # NIMA BOWDEN MD FINAL DIAGNOSIS GALLBLADDER, CHOLECYSTECTOMY: -- SUBACUTE AND CHRONIC CHOLECYSTITIS WITH FOCAL INTESTINAL METAPLASIA AND CHOLESTEROLOSIS. Electronically Signed Out By ÁNGEL RODRIGUEZ MD/WSM By the signature on this report, the individual or group listed as making the Final Interpretation/Diagnosis certifies that they have reviewed this case. Diagnostic interpretation performed at [facility] [place], operated by [facility] [address] [facility] [address] Clinical History: Clinical Diagnosis History: history of afib Xarelto Diastolic CHF, HLD/ HTN, pulmonary embolism, sleep apnea, stroke in 2019. Lower abdomen pain, aggressively getting worse, 10 out of 10 continuous with intermittent throbbing/sharp pain. CT abdomen pelvis: mild bilateral ectasis, multiple small gallstones, small left renal cyst measuring 1.3 cm, no appendicitis or obstruction. Specimens Submitted As: A: GALLBLADDER Gross Description: Received in formalin, labeled with the patient's name and hospital number and gallbladder, is a previously disrupted gallbladder, measuring 7.1 x 4.5 x 3.1 cm. The serosal surface is smooth, and glistening. The wall measures up to 0.3 cm in greatest thickness. The lumen is devoid of contents. No choleliths are identified within the formalin or container. The mucosal surface is ortega-pink and velvety. Due to disruption, the cystic duct is not identified. Brush Stainer sections are submitted in one cassette. IAD iad/01/09/2022 [facility] Department of Pathology [id number] [place] [address] Normal [facility] Comment on above: Performed By: #### U HCS #### [facility] Surgical Pathology Department [address] [facility] [address] CBCon 12-31-2021 Erythrocyte distribution width (RBC) [Ratio] 14.3 % Normal 11.5 - 14.5 [facility] Comment on above: Performed By: #### C BC #### [address] [address] Hematocrit (Bld) [Volume fraction] 39.0 % Low 41.0 - 52.0 [facility] Comment on above: Performed By: #### C BC #### [address] [address] Hemoglobin (Bld) [Mass/Vol] 13.0 g/dL Low 13.5 - 17.5 [facility] Comment on above: Performed By: #### C BC #### [address] [address] MCHC (RBC) [Mass/Vol] 33.3 g/dL Normal 32.0 - 36.0 [facility] Comment on above: Performed By: #### C BC #### [address] [address] MCV (RBC) [Entitic vol] 96 fL Normal 80 - 100 [facility] Comment on above: Performed By: #### C BC #### [address] [address] NUCLEATED RBC 0.0 /100 WBC Normal 0.0 - 0.0 [facility] Comment on above: Performed By: #### C BC #### [address] [address] Platelets (Bld) [#/Vol] 138 10*3/uL Low 150 - 450 [facility] Comment on above: Performed By: #### C BC #### [address] [address] RBC 4.06 x10E12/L Low 4.50 - 5.90 [facility] Comment on above: Performed By: #### C BC #### [address] [address] WBC (Bld) [#/Vol] 6.0 10*3/uL Normal 4.4 - 11.3 [facility] Comment on above: Performed By: #### C BC #### [address] [address] COMPREHENSIVE PANELon 2021 Albumin [Mass/Vol] 3.2 g/dL Low 3.4 - 5.0 [facility] Comment on above: Performed By: #### C MP ####[address] [address] ALP [Catalytic activity/Vol] 118 U/L Normal 33 - 136 [facility] Comment on above: Performed By: #### C MP ####[address] [address] ALT [Catalytic activity/Vol] 165 U/L High 10 - 52 [facility] Comment on above: Result Comment: Sri ents treated with Sulfasalazine may generate falsely decreased results for ALT. Performed By: #### C MP ####[address] [address] Anion gap [Moles/Vol] 11 mmol/L Normal 10 - 20 [facility] Comment on above: Performed By: #### C MP ####[address] [address] AST [Catalytic activity/Vol] 170 U/L High 9 - 39 [facility] Comment on above: Performed By: #### C MP ####[address] [address] Bilirubin [Mass/Vol] 7.3 mg/dL High 0.0 - 1.2 [facility] Comment on above: Performed By: #### C MP ####[address] [address] Calcium [Mass/Vol] 8.3 mg/dL Low 8.6 - 10.3 [facility] Comment on above: Performed By: #### C MP ####[address] [place] [address] Chloride [Moles/Vol] 103 mmol/L Normal 98 - 107 [facility] Comment on above: Performed By: #### C MP ####[address] [place] [address] Creatinine [Mass/Vol] 0.79 mg/dL Normal 0.50 - 1.30 [facility] Comment on above: Performed By: #### C MP ####[address] [place] [address] eGFR MALE >90 Normal >90 [facility] Comment on above: Result Comment: CALC ULATIONS OF ESTIMATED GFR ARE PERFORMED USING THE 2020 CKD-EPI STUDY REFIT EQUATION WITHOUT THE RACE VARIABLE FOR THE IDMS-TRACEABLE CREATININE METHODS. https://jasn.asnjournals.org/content//ASN.[email or web address] 988 Performed By: #### C MP ####[address] [place] [address] Glucose [Mass/Vol] 112 mg/dL High 74 - 99 [facility] Comment on above: Performed By: #### C MP ####[address] [place] [address] HCO3 (Bld) [Moles/Vol] 27 mmol/L Normal 21 - 32 [facility] Comment on above: Performed By: #### C MP ####[address] [place] [address] Potassium [Moles/Vol] 3.5 mmol/L Normal 3.5 - 5.3 [facility] Comment on above: Performed By: #### C MP ####[address] [place] [address] Protein [Mass/Vol] 5.3 g/dL Low 6.4 - 8.2 [facility] Comment on above: Performed By: #### C MP ####[address] [place] [address] Sodium [Moles/Vol] 137 mmol/L Normal 136 - 145 [facility] Comment on above: Performed By: #### C MP ####[facility] [facility] [place] [address] Urea nitrogen [Mass/Vol] 11 mg/dL Normal 6 - 23 [facility] Comment on above: Performed By: #### C MP ####[facility] [facility] [place] [address] Daily Progress Note-Gastroen terologyon 12-31-2021 Daily Progress Note-Gastroenterolog y Service: Gastroenterology Subjective Data: RICHI HU is a 66 year old Male who is Hospital Day # 2. Patient lying in bed with continued abdominal discomfort, though fairly well controlled with analgesics. Nausea improved. Bilirubin up trended to 7.3. Jaundice noticed. Plan for ERCP today with Dr. Abad. Objective Data: Objective Information: T PRBPMAPSpO2 [id number]% Date/Time12/31 12: 12: 12: 12: 10: 12:00 Range(36.4C - 38.4C ) (59 - 80 ) (16 - 18 ) (106 - 110 )/ (42 - 65 ) (83 - 83 ) (93% - 100% ) Highest temp of 38.4 C was recorded at 12/30 20:00 Pain reported at 12/31 13:26: 7 = Severe Weights 12/30 11:15: Weight in kg (Weight (kg)) 216.3 12/30 11:15: Weight in lbs ((lbs)) 476.8 12/30 11:15: BMI (kg/m2) (BMI (kg/m2)) 56.593 Physical Exam by System: Constitutional: Alert and interactive obese male with continued abd discomfort Eyes: PERRL, sclera clear, no conjunctival injection ENMT: Mucous membranes moist, no lesions noted Respiratory/Thorax: CTAB, even and unlabored Cardiovascular: RRR, normal S1, S2, no m,r,g Gastrointestinal: +BS, soft, round, NT, no rebound tenderness or guarding, no palpable masses or organomegaly Musculoskeletal: 5/5 strength, ROM intact, no joint swelling Extremities: Extremities warm, no edema, contusions, wounds or cyanosis Neurological: Alert and oriented x3 Psychological: Appropriate mood and behavior Skin: Warm and dry, no rash or ecchymosis Medication: Medications: Continuous Medications ---- 1. Lactated Ringers Infusion: 1000 mL IntraVenous Scheduled Medications ---- 1. Aztreonam IV Piggy Back: 1000 mg IntraVenous Piggyback Every 8 Hours 2. Lisinopril: 20 mg Oral Daily 3. metroNIDAZOLE (FLAGYL) 500 mg IVPB/ Premixed Soln 100 mL: 100 mL IntraVenous Piggyback Every 8 Hours 4. Sotalol: 120 mg Oral 2 Times a Day PRN Medications ---- 1. Acetaminophen: 650 mg Oral Every 4 Hours 2. Albuterol 2.5 mg/ 3 mL Nebulizer Soln: 3 mL Inhalation Once 3. Bisacodyl Enteric Coated: 5 mg Oral Once 4. hydrALAZINE (APRESOLINE) Injectable: 5 mg IntraVenous Push Every 30 Minutes 5. HYDROmorphone Injectable: 0.5 mg IntraVenous Push Every 5 Minutes 6. HYDROmorphone Injectable: 1 mg IntraVenous Push Every 5 Minutes 7. Labetalol Injectable: 5 mg IntraVenous Push Once 8. Melatonin: 3 mg Oral At Bedtime 9. Morphine Injectable: 2 mg IntraVenous Push Every 4 Hours 10. Morphine Injectable: 4 mg IntraVenous Push Every 4 Hours 11. Naloxone Injectable: 0.2 mg IntraVenous Push Once 12. Ondansetron Injectable: 4 mg IntraVenous Push Every 4 Hours 13. Promethazine IV Piggy Back: 6.25 mg IntraVenous Piggyback Once 14. Racemic EPINEPHrine 2.25% Nebulizer Solution: 0.5 mL Inhalation Every 4 Hours 15. Sodium Chloride 0.9% Injectable Flush: 10 mL IntraVenous Flush Every 8 Hours and as Needed Currently Suspended Medications ---- 1. Furosemide: 40 mg Oral Daily 2. Rivaroxaban: 20 mg Oral Recent Lab Results: Results: I have reviewed these laboratory results: Complete Blood Count Trending View [id number] 06:08:00 30-Dec-2021 12:06:00 White Blood Cell Count6.0 9.3 Nucleated Erythrocyte Count0.0 0.0 Red Blood Cell Count4.06 L 4.31 L HGB13.0 L 13.9 HCT39.0 L 41.3 MCV96 96 MCHC33.3 33.7 CMH825 L 140 L RDW-CV14.3 13.9 Comprehensive Metabolic Panel Trending View [id number] 06:08:00 30-Dec-2021 12:06:00 Glucose, Ggmnd035 H 126 H NA137 137 K3.5 3.7 CL103 100 Bicarbonate, Serum27 29 Anion Gap, Serum11 12 BUN11 11 CREAT0.79 0.75 GFR Male>90 >90 Calcium, Serum8.3 L 8.5 L ALB3.2 L 3.6 YASN881 109 T Pro5.3 L 5.8 L T Bili7.3 H 5.1 H Alanine Aminotransferase, Lrrsu642 H 140 H Aspartate Transaminase, Rpaug427 H 190 H Magnesium, Serum Trending View [id number] 06:08:00 30-Dec-2021 12:06:00 Magnesium, Serum1.80 1.90 Urinalysis 30-Dec-2021 17:21:00 ResultValue Color, Urine JAVY Reference Range: STRAW,YELLOW Appearance, Urine CLEAR Specific Vevay, Urine 1.044 H pH, Urine 5.0 Protein, Urine NEGATIVE Glucose, Urine NEGATIVE Blood, Urine NEGATIVE Ketones, Urine NEGATIVE Bilirubin, Urine SMALL(1+) A Urobilinogen, Urine 4.0 H Nitrite, Urine NEGATIVE Leukocyte Esterase, Urine NEGATIVE Bilirubin, Serum Direct - Conjugated 30-Dec-2021 12:06:00 ResultValue Bilirubin, Serum Direct - Conjugated 2.7 H Radiology Results: Results: Impression: Limited exam. The biliarytree and pancreas are not adequately visualized on this exam. Limited evaluation of the liver, likely enlarged, echogenic and difficult to penetrate, likely related to diffuse fatty infiltration. Small gallstones in dilated gallbladder with questionable gallbladder wall thickening. Cho (more content not included)... Normal [facility] Daily Progress Note-General Internal Medicineon 12-31-2021 Daily Progress Note-General Internal Medicine Consult Type: subsequent visit/care Service: General Internal Medicine Subjective Data: RICHI HU is a 66 year old Male who is Hospital Day # 2. Additional Information: Patient lying in bed no acute distress this morning. Reports abdominal pain is improved since yesterday. Denies any chest pain, shortness of breath or nausea or vomiting. Objective Data: Objective Information: T PRBPMAPSpO2 [id number]% Date/Time12/31 8: 8: 8: 8: 10: 8:00 Range(36.4C - 38.4C ) (61 - 80 ) (16 - 18 ) (106 - 110 )/ (51 - 65 ) (83 - 83 ) (93% - 100% ) Highest temp of 38.4 C was recorded at 12/30 20:00 Pain reported at 12/30 23:46: 4 = Moderate Physical Exam Narrative: Physical Exam: Constitutional: Well developed, awake/alert/oriented x3, no distress, cooperative Eyes: clear sclera ENMT: no apparent injury Head/Neck: Neck supple, no apparent injury, Respiratory/Thorax: Patent airways, normal breath sounds with good chest expansion, thorax symmetric Cardiovascular: Regular, rate and rhythm, no murmurs, 2+ equal pulses of the extremities, normal S 1and S 2 Gastrointestinal: obese, Nondistended, soft, mild tender RUQ and RLQ, , +BS x 4 quadrants Musculoskeletal: ROM intact, no joint swelling, Extremities: pitting edema bilateral lower ext. wound right kennedy Skin: warm, dry, Neurological: alert/oriented x 3, speech clear Psychiatric: appropriate mood and behavior Medication: Medications: ALTERNATIVE MEDICINES: 1. Melatonin: 3 mg Oral At Bedtime PRN ANTI-INFECTIVES: 1. metroNIDAZOLE (FLAGYL) 500 mg IVPB/ Premixed Soln 100 mL: 100 mL IntraVenous Piggyback Every 8 Hours 2. Aztreonam IV Piggy Back: 1000 mg IntraVenous Piggyback Every 8 Hours CARDIOVASCULAR AGENTS: 1. Lisinopril: 20 mg Oral Daily 2. Sotalol: 120 mg Oral 2 Times a Day CENTRAL NERVOUS SYSTEM AGENTS: 1. Acetaminophen: 650 mg Oral Every 4 Hours PRN 2. Morphine Injectable: 2 mg IntraVenous Push Every 4 Hours PRN 3. Morphine Injectable: 4 mg IntraVenous Push Every 4 Hours PRN 4. Ondansetron Injectable: 4 mg IntraVenous Push Every 4 Hours PRN GASTROINTESTINAL AGENTS: 1. Bisacodyl Enteric Coated: 5 mg Oral Once PRN NUTRITIONAL PRODUCTS: 1. Sodium Chloride 0.9% Injectable Flush: 10 mL IntraVenous Flush Every 8 Hours and as Needed PRN Currently Suspended Medications ---- 1. Furosemide: 40 mg Oral Daily 2. Rivaroxaban: 20 mg Oral Recent Lab Results: Results: CBC: 12/31/2021 06:08 \ Hgb / \ 13.0 L / WBC Plt 6.0 138 L / Hct \ / 39.0 L \ RBC: 4.06 L MCV: 96 CMP: 12/31/2021 06:08 NA+ Cl- BUN / 137 103 11 / ---- Glucose 112 H K+ HCO3- Creat \ 3.5 27 0.79 \ \ T Bili / \ 7.3 H / AST x ---- x ALT 170 Hx ---- x 165 H / Alk P \ / 118 \ Calcium : 8.3 L Anion Gap : 11 Albumin : 3.2 L T Protein : 5.3 L Radiology Results: Results: Impression: Limited exam. The biliarytree and pancreas are not adequately visualized on this exam. Limited evaluation of the liver, likely enlarged, echogenic and difficult to penetrate, likely related to diffuse fatty infiltration. Small gallstones in dilated gallbladder with questionable gallbladder wall thickening. Cholecystitis not excluded. Clinical correlation recommended. Further evaluation with HIDA scan may be helpful. Elongated right kidney. Punctate echogenic possible vascular calcification or nonobstructivestone in the midpole. Ultrasound Right Upper Quadrant [Dec 30 2021 4:09PM] Assessment and Plan: Code Status: Code StatusFull Code Assessment: Impression: Intractable abdominal pain Cholelithiasis, possible acute erica transaminitis hyperbilirubinemia Afib on Xarelto Chronic diastolic CHF sleep apnea BIPAP at HS HTN Morbid obesity BMI Plan: -NAD, reports abdominal pains improved this morning - consult surgery, ERCP and lap erica - consult GI, will evaluate for need for ERCP today - RUQ US Small gallstones in dilated gallbladder with questionable gallbladder wall thickening. Cholecystitis not excluded - start on prophylactic antibiotics for possible erica , cont IV flagyl and Azactam - NPO - IV morphine as needed for pain - IV Zofran as needed for nausea , use with caution, pt on sotalol, obtain EKG for baseline QTc - cont IVF LR at 100 x 1L while NPO - DVtp- Xarelto, on HOLD for possible intervention - labs in the morning - resume home medications, hold Lasix while on IVFs - POC discussed with the patient and attending DVT PPx: Xarelto, on HOLD for possible procedure Diet: NPO CODE STATUS: FULL Electronic Signatures: Geovanna Kahn (JEWEL CORNER BRUSHING MACHINE OPERATOR-TRUST MANAGER ASSISTANT) (Signed 31-Dec-2021 11:17) Authored: Service, Subjective Data, Objective Data, Assessment and Plan, (more content not included)... Normal [facility] ERCPon 12-31-2021 ERCP PATIENTNAME Patient Name: Richi Hu EXAMDATE Procedure Date: 12/31/2021 2:17 PM PATIENTID PATIENTACCOUNTNUM PATIENTDOB Date of : 1955 ADMITTYPE Admit Type: Inpatient PATIENTROOM Site: [facility] Endo 1 ETHNICITY Ethnicity: Unknown RACE Race: Unknown PROVDR Attending MD: Argelia Abad MD, [id number] ENDOPROCEDURENAME Procedure: ERCP INDICATION Indications: Common bile duct stone(s), Abdominal pain of suspected biliary origin, Abnormal abdominal CT, Biliary dilation on Ultrasound, Suspected ascending cholangitis, Jaundice, Elevated liver enzymes PTPROFILE Patient Profile: This is a 66 year old male. Refer to note in patient chart for documentation of history and physical. PRIMARYPROVIDER Providers: Argelia Abad MD (Doctor), Collin Vazquez RN (Nurse), Adi Friedman, Musical Instrument Maker EDREFPROVIDER Referring: CURRENT_MEDS Medicines: General Anesthesia COMPLIC Complications: No immediate complications. ENDOPROCEDURETEXT Procedure: Pre-Anesthesia Assessment: - Prior to the procedure, a History and Physical was performed, and patient medications and allergies were reviewed. The patient's tolerance of previous anesthesia was also reviewed. The risks and benefits of the procedure and the sedation options and risks were discussed with the patient. All questions were answered, and informed consent was obtained. Prior Anticoagulants: The patient has taken Xarelto (rivaroxaban), last dose was 2 days prior to procedure. ASA Grade Assessment: III - A patient with severe systemic disease. After reviewing the risks and benefits, the patient was deemed in satisfactory condition to undergo the procedure. After obtaining informed consent, the scope was passed under direct vision. Throughout the procedure, the patient's blood pressure, pulse, and oxygen saturations were monitored continuously. The duodenoscope was introduced through the mouth, and advanced to the duodenum and used to locate the major papilla. The Gastroscope was introduced through the mouth, and advanced to the duodenum and used to inject contrast into the bile duct. The endoscope was introduced through the mouth, and advanced to the duodenum and used to locate the major papilla. The ERCP was accomplished without difficulty. The patient tolerated the procedure well. FINDING Findings: The motor transport inspector film was normal. A standard esophagogastroduodenoscopy scope was used for the examination of the upper gastrointestinal tract. The scope was passed under direct vision through the upper GI tract. One non-bleeding superficial gastric ulcer with no stigmata of bleeding was found on the lesser curvature of the gastric body. The lesion was 10 mm in largest dimension. Biopsy was performed on the lesser curvature of the stomach through the esophagogastroduodenoscope with a cold forceps for Helicobacter pylori testing. Pus was emerging from the major papilla. A 0.035 inch angled standard wire was passed into the biliary tree. The Fusion OMNI sphincterotome was passed over the guidewire and the bile duct was then deeply cannulated. Contrast was injected. I personally interpreted the bile duct images. Ductal flow of contrast was adequate. Image quality was adequate. Contrast extended to the main bile duct. The middle third of the main bile duct contained filling defect(s) thought to be a stone. A 4 mm biliary sphincterotomy was made with a monofilament Fusion OMNI sphincterotome using ERBE electrocautery. There was no post-sphincterotomy bleeding. To discover objects, the biliary tree was swept with an 8.5 mm balloon starting at the upper third of the main bile duct. Sludge was swept from the duct. Two stones were removed. No stones remained. Sludge was swept from the duct. Pus was swept from the duct. One 10 Fr by 7 cm plastic stent with two internal flaps was placed 6 cm into the common bile duct. Bile flowed through the stent. The stent was in good position. Indomethacin 100 mg was given via suppository to decrease the risk of post-ERCP pancreatitis (PEP). EBL Estimated Blood Loss: Estimated blood loss: none. IMPRESS Impression: - Non-bleeding gastric ulcer with no stigmata of bleeding. - Biopsy was performed on the lesser curvature of the stomach. - Pus was seen in the major papilla. - A filling defect consistent with a stone was seen on the cholangiogram. - Choledocholithiasis was found. Complete removal was accomplished by biliary sphincterotomy and balloon extraction. - A biliary sphincterotomy was performed. - The biliary tree was swept and sludge and pus were found. - One plastic stent was placed into the common bile duct. - Indomethacin given to decrease risk of post-ERCP pancreatitis. ENDORECOMMENDATION Recommendation: - Clear liquid diet. - Await path results. - Refer to a surgeon. - Retu (more content not included)... Normal [facility] Laboratory - Chemistry and C hemistry - challengeon 12-31-2021 Albumin BCP dye [Mass/Vol] 3.2 g/dL below low threshold 3.4 - 5.0 [facility] [employer] Work Phone: ALP [Catalytic activity/Vol] 118 U/L 33 - 136 [facility] marc [employer] Work Phone: ALT With P-5'-P [Catalytic activity/Vol] 165 U/L above high threshold 10 - 52 [facility] [place] [employer] Work Phone: Comment on above: Patients treated wit h Sulfasalazine may generate falsely decreased results for ALT. Anion gap [Moles/Vol] 11 mmol/L 10 - 20 [facility] [email or web address] Work Phone: AST With P-5'-P [Catalytic activity/Vol] 170 U/L above high threshold 9 - 39 [facility] [email or web address] Work Phone: Bilirubin [Mass/Vol] 7.3 mg/dL above high threshold 0.0 - 1.2 [facility] [email or web address] Work Phone: Calcium [Mass/Vol] 8.3 mg/dL below low threshold 8.6 - 10.3 [facility] [email or web address] Work Phone: Chloride [Moles/Vol] 103 mmol/L 98 - 107 -[facility] [email or web address] Work Phone: CO2 [Moles/Vol] 27 mmol/L 21 - 32 [facility] [email or web address] Work Phone: Creatinine [Mass/Vol] 0.79 mg/dL See Below [facility] [email or web address] Work Phone: Comment on above: Reference Range: 0.5 0 - 1.30 Glucose [Mass/Vol] 112 mg/dL above high threshold 74 - 99 [facility] [email or web address] Work Phone: Potassium [Moles/Vol] 3.5 mmol/L 3.5 - 5.3 [facility] [email or web address] Work Phone: Protein [Mass/Vol] 5.3 g/dL below low threshold 6.4 - 8.2 [facility] [email or web address] Work Phone: Sodium [Moles/Vol] 137 mmol/L 136 - 145 [facility] [email or web address] Work Phone: Urea nitrogen [Mass/Vol] 11 mg/dL 6 - 23 [facility] Work Phone: Laboratory - Hematology and Cell countson 12-31-2021 Erythrocyte distribution width (RBC) [Ratio] 14.3 % See Below [facility] Work Phone: Comment on above: Reference Range: 11. 5 - 14.5 Hematocrit (Bld) [Volume fraction] 39.0 % below low threshold See Below [facility] Work Phone: Comment on above: Reference Range: 41. 0 - 52.0 Hemoglobin (Bld) [Mass/Vol] 13.0 g/dL below low threshold See Below [facility] [email or web address] Work Phone: Comment on above: Reference Range: 13. 5 - 17.5 MCHC (RBC) [Mass/Vol] 33.3 g/dL See Below [facility] Work Phone: Comment on above: Reference Range: 32. 0 - 36.0 MCV (RBC) [Entitic vol] 96 fL 80 - 100 [facility] Work Phone: Platelets (Bld) [#/Vol] 138 10*3/uL below low threshold 150 - 450 [facility] Work Phone: RBC (Bld) [#/Vol] 4.06 {x10E12/L} below low threshold See Below [facility] Work Phone: Comment on above: Reference Range: 4.5 0 - 5.90 WBC (Bld) [#/Vol] 6.0 10*3/uL 4.4 - 11.3 [facility] [email or web address] Work Phone: MAGNESIUMon 12-31-2021 Magnesium [Mass/Vol] 1.80 mg/dL Normal 1.60 - 2.40 [facility] Comment on above: Performed By: #### M G #### [facility] [address] [place] [address] Magnesium, Serumon Magnesium [Mass/Vol] 1.80 mg/dL See Below [facility] [email or web address] Work Phone: Comment on above: Reference Range: 1.6 0 - 2.40 No Panel Informationon 12-31 [facility] Work Phone: [email or web address] } [facility] [email or web address] Work Phone: >90 >90 [facility] Work Phone: Comment on above: CALCULATIONS OF SHARON MATED GFR ARE PERFORMED USING THE 2020 CKD-EPI STUDY REFIT EQUATION WITHOUT THE RACE VARIABLE FOR THE IDMS-TRACEABLE CREATININE METHODS.https://jasn.asnjournals.org/content/early/ASN .0884854229 0.0 {/100_WBC} 0.0 - 0.0 [facility] Work Phone: Radiologyon 12-31-2021 Fluoroscopy duration Please click on the link to view the study images Normal [facility] Work Phone: [facility] Surgical Pathology Depar tmenton 12-31-2021 [facility] [facility] Surgical Pathology Department Name RICHI HU Pathologist: ANGY AMARO MD Date of Procedure: 12/31/2021 Date Received: 12/31/2021 Date Reported 01/02/2022 Submitting Physician: ARGELIA ABAD MD Location: [address] Copy To/Referring/Attending: ADOLFO ENRIQUEZ, DO Other External # JERRELL WASHINGTON MD FINAL DIAGNOSIS A. BX GASTRIC ULCER: CHRONIC GASTRITIS. NO H. PYLORI ORGANISMS IDENTIFIED. NO ULCER IS IDENTIFIED MICROSCOPICALLY. Electronically Signed Out By ANGY AMARO MD/MSR By the signature on this report, the individual or group listed as making the Final Interpretation/Diagnosis certifies that they have reviewed this case. Diagnostic interpretation performed at [address] [place] [address] Clinical History: CBD obstruction, elevated LFT's, gastric ulcer, EGD with bx, a) also sta H. pylori Specimens Submitted As: A: BX GASTRIC ULCER Gross Description: Received in formalin, labeled with the patient's name and hospital number and A BX gastric ulcer, are 2 fragments of ortega, soft tissue aggregating to 0.4 x 0.2 x 0.2 cm. The specimen is submitted in toto in one cassette. [facility]/01/01/2022 [facility] Department of Pathology [address] [place] [address] Normal [facility] Comment on above: Performed By: #### U [facility] #### [facility] Surgical Pathology Department [address] [place] [address] Absolute lymphocyte counton 12-30-2021 Lymphocytes Auto (Unsp spec) [#/Vol] 1.58 10*3/uL 0.83-4.51 [facility] Work Phone: Admission Risk Screen - Adul ton 12-30-2021 Admission Risk Screen - Adult Allergies: Allergies: penicillin: Anaphylaxis, Angioedema Sulfacetamide Sodium-Sulfur: Itching, Hives/Urticaria Patient Verification: New W ID Band Applied in my Departmentyes Patient Identity Verified Bypatient ID Band FULL Name, include Middle, spelling matches patient's ID used for verificationyes ID Band Matches Patient ID used for Verficationyes ID Band MRN Matches EMR MRNyes Visitor Restriction: Coronavirus Visitor Restriction: Reasonable restrictions to in-person visitors will be observed due to current coronavirus pandemic. Travel History: COVID-19 Screening Completedno exposure or symptoms Travel or Exposure Past 30 DaysNO travel to International locations in the past 30 days Ebola AlertFor Ebola-like Symptoms: Isolate Patient and Notify Provider/Lumber Yard Worker For Contact: Notify Provider/Lumber Yard Worker Advance Directive: Advance Directive/DNRno Advance Directive Information Givenpatient/family declined Dove Fall Screen: History of falling (immediate or previous)no (0) Secondary Diagnosisyes (15) Intravenous Therapy/ Heparin/Saline Lockyes (20) Gait/Transferringweak (10) Ambulatory Aidsnone/bedrest/nurse assist (0) Mental Statusoriented to own ability (0) Score: Low risk (<25). Moderate risk (25-44). High risk (>44).45 Dove InterventionsHIGH INTERVENTIONS *Low and Moderate Interventions Plus: * supervised toileting at all times Family Violence Screen: Are you or have you been threatened or abused physically, emotionally, or sexually by anyoneno Do you feel UNSAFE going back to the place where you are livingno Clinical assessment: Are there any apparent signs of injuries/behaviors that could be related to abuse/neglectno Social Service Consult for abuse/neglect needed this visitno Functional Screen: Functional Screen: In the recent/past 2-4 weeks, patient or family have noticedno issues that require a speech/language consult at this time AM-PAC- Basic Mobility/Daily Activity: Patient baseline bedboundno Turning from your back to your side while in a flat bed without using bedrailsnone Moving from lying on your back to sitting on the side of a flat bed without using bedrailsnone Moving to and from bed to chair (including a wheelchair)none Standing up from a chair using your arms (e.g. wheelchair or bedside chair) none To walk in hospital roomnone Climbing 3-5 steps with railingnone Basic Mobility - Total Score24 Learning Assessment (Patient): Patient is Able to be Assessed for Learningyes Factors Influencing Readiness to Learninterest in learning Factors that Impact Ability to Learnnone Devices/Methods Used to Communicateglasses Learning Preferencesskill demonstration; verbal instruction; written material; video Cultural Considerationsnone Developmental Considerationsnone Pentecostal Considerationsnone Learning Assessment (Other Learner): Other learner availableno Depression Screen: During the past month, have you often been bothered by feeling down, depressed or hopelessno During the past month, have you often had little interest or pleasure in doing thingsno Have you had any thoughts of harming anyone elseno [place] Suicide: Risk Screen Not Applicable/Able to Answerable to be screened In the Past Month: Have you wished you were or could go to sleep and not wake upno In the Past Month: Have you had any actual thoughts of killing yourselfno Lifetime: Have you ever done, started to do, or prepared to do anything to end your lifeno [place] Suicide Risknegative Adult Nutrition Screen: Have you recently lost weight without tryingno Have you been eating poorly because of a decreased appetiteyes Malnutrition Screening Tool Score1 Malnutrition Screening Tool RiskMST = 0 or 1 Not at risk. Eating well with little or no weight loss Nutrition Consult needed this visitno Can Patient Participate in Room Serviceyes Patient requires Paper Dishes/Plastic Utensilsno Pain Screen: Pain Scalenumerical 0-10 Pain Scale Educationteaching provided Current Pain Level5 = Moderate Acceptable Pain Level1 = Mild Expression of Pain (nonverbal)diaphoresis, withdrawn Chronic Painyes Chronic Back pain locationlower, back Spiritual Screen: Are there any cultural, spiritual, worship practices/values/needs that are important for us to knowno CAGE: Is this an injured patient at a Trauma Center ([facility]/[place]): no Vaccinations: Vaccination - Influenza Vaccination Screen: Is it flu season (between and May 30)Yes Screening for identified contraindications to influenza vaccinationpatient already received vaccine this season Vaccination - Pneumonia Vaccination Screen: Patient has received a previous pneumonia vaccine:no/unknown... Immunocompetent persons with underlying chronic conditions or reside in custodial [place] (more content not included)... Normal [facility] BILIRUBIN,DIRECTon 2 Bilirubin.indirect [Mass/Vol] 2.7 mg/dL High 0.0 - 0.3 [facility] Comment on above: Performed By: #### M G #### [facility] [address] [place] [address] Basophil percentageon 2021 Lactate [Moles/Vol] 2.2 mmol/L 0.4-2.0 [facility] Work Phone: Comment on above: Critical Result(s) C issa at: 06:06:39 12/30/2021 by: Veronika hansen [facility]. Results read back by same. Basophil percentage 0-5 SEEN /hpf 0-5 [facility] Work Phone: Basophils/100 WBC (Bld) 0.6 % 0-1 [facility] Work Phone: Bilirubin [Mass/Vol] 2.70 mg/dL 0.20-1.00 [facility] Work Phone: Comment on above: For patients on eltr ombopag therapy, use of Dimension [place] TBIL is not recommended. Chloride [Moles/Vol] 104 mmol/L 98-107 [facility] Work Phone: Eosinophils/100 WBC (Bld) 1.8 % 0-5 [facility] Work Phone: Glucose [Mass/Vol] 156 mg/dL 74-106 [facility] Work Phone: Comment on above: Fasting Glucose resu lt greater than or equal to 126 mg/dL suggests DIABETES MELLITUS per A.D.A. criteria. Neutrophils (Bld) [#/Vol] 5.4 10*3/uL 2.0-7.7 [facility] Work Phone: Neutrophils/100 WBC (Bld) 68.5 % 47-70 [facility] Work Phone: Potassium [Moles/Vol] 3.7 mmol/L 3.5-5.1 [facility] Work Phone: [phone] Protein [Mass/Vol] 6.8 g/dL 6.4-8.2 [facility] Work Phone: Sodium [Moles/Vol] 139 mmol/L 136-145 [facility] Work Phone: WBC (Bld) [#/Vol] 7.9 10*3/uL 4.4-11.0 [facility] Work Phone: Bilirubin Test strip Ql (U)o n 12-30-2021 Bilirubin Ql (U) Negative Negative [facility] Work Phone: Bilirubin, Serum Direct - Co njugatedon 10-31-2022 Bilirubin.direct [Mass/Vol] 2.7 mg/dL above high threshold 0.0 - 0.3 [facility] Work Phone: Blood erythrocytes count (nu mber/volume)on 12-30-2021 RBC (Bld) [#/Vol] 4.59 10*6/uL 4.6-6.2 [facility] Work Phone: Blood hemoglobin measurement (mass/volume)on 12-30-2021 Hemoglobin (Bld) [Mass/Vol] 14.8 g/dL 13.0-16.5 [facility] Work Phone: Blood lymphocytes/100 leukoc yteson 12-30-2021 Lymphocytes/100 WBC (Bld) 20.1 % 19-41 [facility] Work Phone: [phone] Blood monocytes/100 leukocyt eson 12-30-2021 Monocytes/100 WBC (Bld) 8.6 % 0-10 [facility] Work Phone: Blood platelet mean volumeon 12-30-2021 Platelet mean volume (Bld) [Entitic vol] 9.6 fL 6.2-12.0 [facility] Work Phone: CBCon 12-30-2021 Erythrocyte distribution width (RBC) [Ratio] 13.9 % Normal 11.5 - 14.5 [facility] Comment on above: Performed By: #### M G #### [address] [address] Hematocrit (Bld) [Volume fraction] 41.3 % Normal 41.0 - 52.0 [facility] Comment on above: Performed By: #### M G #### [address] [address] Hemoglobin (Bld) [Mass/Vol] 13.9 g/dL Normal 13.5 - 17.5 [facility] Comment on above: Performed By: #### M G #### [address] [address] MCHC (RBC) [Mass/Vol] 33.7 g/dL Normal 32.0 - 36.0 [facility] Comment on above: Performed By: #### M G #### [address] [address] MCV (RBC) [Entitic vol] 96 fL Normal 80 - 100 [facility] Comment on above: Performed By: #### M G #### [address] [address] NUCLEATED RBC 0.0 /100 WBC Normal 0.0 - 0.0 [facility] Comment on above: Performed By: #### M G #### [address] [address] Platelets (Bld) [#/Vol] 140 10*3/uL Low 150 - 450 [facility] Comment on above: Performed By: #### M G #### [address] [address] RBC 4.31 x10E12/L Low 4.50 - 5.90 [facility] Comment on above: Performed By: #### M G #### [address] [address] WBC (Bld) [#/Vol] 9.3 10*3/uL Normal 4.4 - 11.3 [facility] Comment on above: Performed By: #### M G #### [address] [address] COMPREHENSIVE PANELon 2021 Albumin [Mass/Vol] 3.6 g/dL Normal 3.4 - 5.0 [facility] Comment on above: Performed By: #### M G #### [address] [address] ALP [Catalytic activity/Vol] 109 U/L Normal 33 - 136 [facility] Comment on above: Performed By: #### M G #### [address] [address] ALT [Catalytic activity/Vol] 140 U/L High 10 - 52 [facility] Comment on above: Result Comment: Sri ents treated with Sulfasalazine may generate falsely decreased results for ALT. Performed By: #### M G #### [address] [place] [address] Anion gap [Moles/Vol] 12 mmol/L Normal 10 - 20 [facility] Comment on above: Performed By: #### M G #### [address] [place] [address] AST [Catalytic activity/Vol] 190 U/L High 9 - 39 [facility] Comment on above: Performed By: #### M G #### [address] [place] [address] Bilirubin [Mass/Vol] 5.1 mg/dL High 0.0 - 1.2 [facility] Comment on above: Performed By: #### M G #### [address] [place] [address] Calcium [Mass/Vol] 8.5 mg/dL Low 8.6 - 10.3 [facility] Comment on above: Performed By: #### M G #### [address] [place] [address] Chloride [Moles/Vol] 100 mmol/L Normal 98 - 107 [facility] Comment on above: Performed By: #### M G #### [address] [place] [address] Creatinine [Mass/Vol] 0.75 mg/dL Normal 0.50 - 1.30 [facility] Comment on above: Performed By: #### M G #### [address] [place] [address] eGFR MALE >90 Normal >90 [facility] Comment on above: Result Comment: CALC ULATIONS OF ESTIMATED GFR ARE PERFORMED USING THE 2020 CKD-EPI STUDY REFIT EQUATION WITHOUT THE RACE VARIABLE FOR THE IDMS-TRACEABLE CREATININE METHODS. https://jasn.asnjournals.org/content//ASN.5680082 988 Performed By: #### M G #### [address] [place] [address] Glucose [Mass/Vol] 126 mg/dL High 74 - 99 [facility] Comment on above: Performed By: #### M G #### [address] [address] HCO3 (Bld) [Moles/Vol] 29 mmol/L Normal 21 - 32 [facility] Comment on above: Performed By: #### M G #### [address] [address] Potassium [Moles/Vol] 3.7 mmol/L Normal 3.5 - 5.3 [facility] Comment on above: Performed By: #### M G #### [address] [address] Protein [Mass/Vol] 5.8 g/dL Low 6.4 - 8.2 [facility] Comment on above: Performed By: #### M G #### [address] [address] Sodium [Moles/Vol] 137 mmol/L Normal 136 - 145 [facility] Comment on above: Performed By: #### M G #### [address] [address] Urea nitrogen [Mass/Vol] 11 mg/dL Normal 6 - 23 [facility] Comment on above: Performed By: #### M G #### [address] [address] Clinical Intervention - Ora barrera 12-30-2021 Clinical Intervention - Pharmacy Pharmacist's Clinical Intervention: Is this intervention medication reconciliation related: yes, HISTORY Electronic Signatures: Jayla Baig ([email or web address]) (Signed 30-Dec-2021 12:22) Authored: Pharmacist's Clinical Intervention Last Updated: 30-Dec-2021 12:22 by Jayla Baig ([facility] [employer]) [facility] Consult-Gastroenterologyon 1 Consult-Gastroentero logy Service: Service: Gastroenterology Consult: Consult requested by (Attending Name): Nima Bowden Reason: abdominal pain, possible erica History of Present Illness: Admission Reason: abdominal pain HPI: RICHI HU is a 66 year old Male with Gi consult for abd pain. PMH significant for A. fib on Xarelto, CHF, HTN. Patient presented with abdominal pain steadily progressed over the past day. He had tried laying down, heat for pain with no improvement. He had nausea initially unrelieved with Pepto-Bismol. No vomiting. Pain is periumbilical radiating to the right hip. He does not feel that this was related to oral intake. No previous similar episodes. He presented to [facility] and was transferred for further management. Imaging there consistent with cholelithiasis without cholecystitis. No leukocytosis, liver enzymes noted T bili 2.7, ALT 71/AST 95, ALP 123. He has never had EGD. Most recent colonoscopy 2 years ago at [place] with polyp removed. His last dose of Xarelto was last evening at 6 PM. Patient currently denies lightheadedness, dizziness, fever, chills, CP, SOB, diarrhea, constipation, hematochezia, melena. RUQ ultrasound pending. PMH: HTN, HLD, A. fib on Xarelto, CHF, BORIS, CVA, PE PSH: Cardiac ablation, left heart cath, colonoscopy, right TKR, back surgery 2011, tonsillectomy and adenoidectomy Family Hx: no GI malignancies Social: Pt denies smoking, alcohol or illicits Review Family/Social History and ROS: Social History: Smoking Status: former smoker (1) Alcohol Use: occasionally(1) Drug Use: denies (1) Drug 2 Use: denies (1) Constitutional: NEGATIVE: Fever, Chills, Anorexia, Weight Loss, Malaise Eyes: NEGATIVE: Blurry Vision, Drainage, Diploplia, Redness, Vision Loss/ Change ENMT: NEGATIVE: Nasal Discharge, Nasal Congestion, Ear Pain, Mouth Pain, Throat Pain Respiratory: NEGATIVE: Dry Cough, Productive Cough, Hemoptysis, Wheezing, Shortness of Breath Cardiac: NEGATIVE: Chest Pain, Dyspnea on Exertion, Orthopnea, Palpitations, Syncope Gastrointestinal: POSITIVE: Nausea, Abdominal Pain; NEGATIVE: Vomiting, Diarrhea, Constipation Musculoskeletal: NEGATIVE: Decreased ROM, Pain, Swelling, Stiffness, Weakness Neurological: NEGATIVE: Dizziness, Confusion, Headache, Seizures, Syncope Skin: NEGATIVE: Mass, Pain, Pruritus, Rash, Ulcer Hematologic/Lymph: NEGATIVE: Anemia, Bruising, Easy Bleeding, Night Sweats, Petechiae Allergies: penicillin: Anaphylaxis, Angioedema Sulfacetamide Sodium-Sulfur: Itching, Hives/Urticaria Objective: Objective Information: T PRBPMAPSpO2 [id number]% Date/Time12/30 10: 10: 10: 10: 10: 10:45 Range(36.5C - 36.5C ) (68 - 68 ) (18 - 18 ) (110 - 110 )/ (65 - 65 ) (83 - 83 ) (100% - 100% ) Weights 12/30 11:15: Weight in kg (Weight (kg)) 216.3 12/30 11:15: Weight in lbs ((lbs)) 476.8 12/30 11:15: BMI (kg/m2) (BMI (kg/m2)) 56.593 Physical Exam by System: Constitutional: Alert and interactive obese male with continue abd discomfort Eyes: PERRL, sclera clear, no conjunctival injection ENMT: Mucous membranes moist, no lesions noted Respiratory/Thorax: CTAB, even and unlabored Cardiovascular: RRR, normal S1, S2, no m,r,g Gastrointestinal: +BS, soft, round, NT, no rebound tenderness or guarding, no palpable masses or organomegaly Musculoskeletal: 5/5 strength, ROM intact, no joint swelling Extremities: Extremities warm, no edema, contusions, wounds or cyanosis Neurological: Alert and oriented x3 Psychological: Appropriate mood and behavior Skin: Warm and dry, no rash or ecchymosis Medications: Medications: Continuous Medications ---- No continuous medications are active Scheduled Medications ---- 1. Aztreonam IV Piggy Back: 1000 mg IntraVenous Piggyback Every 8 Hours 2. Lisinopril: 20 mg Oral Daily 3. metroNIDAZOLE (FLAGYL) 500 mg IVPB/ Premixed Soln 100 mL: 100 mL IntraVenous Piggyback Every 8 Hours 4. Sotalol: 120 mg Oral 2 Times a Day PRN Medications ---- 1. Bisacodyl Enteric Coated: 5 mg Oral Once 2. Melatonin: 3 mg Oral At Bedtime 3. Morphine Injectable: 2 mg IntraVenous Push Every 4 Hours 4. Morphine Injectable: 4 mg IntraVenous Push Every 4 Hours 5. Ondansetron Injectable: 4 mg IntraVenous Push Every 4 Hours 6. Sodium Chloride 0.9% Injectable Flush: 10 mL IntraVenous Flush Every 8 Hours and as Needed Currently Suspended Medications ---- 1. Furosemide: 40 mg Oral Daily 2. Rivaroxaban: 20 mg Oral Recent Lab Results: Results: I have reviewed these laboratory results: Complete Blood Count 30-Dec-2021 12:06:00 ResultValue White Blood Cell Count 9.3 Nucleated Erythrocyte Count 0.0 Red Blood Cell Count 4.3 (more content not included)... Normal [facility] Consult-Gastroentero logy This report has been cancelled. Normal [facility] Determination of erythrocyte mean corpuscular volume (MCV)on 12-30-2021 MCV (RBC) [Entitic vol] 93.5 fL 80-94 [facility] Work Phone: EMR ADDONon 12-30-2021 ADDON CONFIRMATION REQUEST REC'D Normal [facility] Comment on above: Performed By: #### E MRAD #### [facility] [address] [place] [address] Hematocrit Auto (Bld) [Volum e fraction]on 12-30-2021 Hematocrit (Bld) [Volume fraction] 42.9 % 40-54 [facility] Work Phone: Ketones Test strip Ql (U)on 12-30-2021 Ketones Ql (U) Negative Negative [facility] Work Phone: Laboratory - Chemistry and C hemistry - challengeon 12-30-2021 Albumin BCP dye [Mass/Vol] 3.6 g/dL 3.4 - 5.0 [facility] [email or web address] Work Phone: ALP [Catalytic activity/Vol] 109 U/L 33 - 136 [facility] Work Phone: ALT With P-5'-P [Catalytic activity/Vol] 140 U/L above high threshold 10 - 52 [facility] Work Phone: Comment on above: Patients treated wit h Sulfasalazine may generate falsely decreased results for ALT. Anion gap [Moles/Vol] 12 mmol/L 10 - 20 [facility] Work Phone: AST With P-5'-P [Catalytic activity/Vol] 190 U/L above high threshold 9 - 39 [facility] [email or web address] Work Phone: Bilirubin [Mass/Vol] 5.1 mg/dL above high threshold 0.0 - 1.2 [facility] [email or web address] Work Phone: Calcium [Mass/Vol] 8.5 mg/dL below low threshold 8.6 - 10.3 [facility] [email or web address] Work Phone: Chloride [Moles/Vol] 100 mmol/L 98 - 107 [facility] [email or web address] Work Phone: CO2 [Moles/Vol] 29 mmol/L 21 - 32 [facility] Work Phone: Creatinine [Mass/Vol] 0.75 mg/dL See Below [facility] Work Phone: Comment on above: Reference Range: 0.5 0 - 1.30 Glucose [Mass/Vol] 126 mg/dL above high threshold 74 - 99 [facility] [employer] Work Phone: Potassium [Moles/Vol] 3.7 mmol/L 3.5 - 5.3 [facility] Work Phone: Protein [Mass/Vol] 5.8 g/dL below low threshold 6.4 - 8.2 [facility] Work Phone: Sodium [Moles/Vol] 137 mmol/L 136 - 145 [facility] Work Phone: Urea nitrogen [Mass/Vol] 11 mg/dL 6 - 23 [facility] Work Phone: ALP [Catalytic activity/Vol] 123 U/L 45-117 [facility] Work Phone: ALT [Catalytic activity/Vol] 71 U/L 16-61 [facility] Work Phone: CO2 [Moles/Vol] 26.0 mmol/L 21.0-32.0 [facility] Work Phone: Globulin (S) [Mass/Vol] 3.3 g/dL 2.2-4.2 [facility] Work Phone: Urea nitrogen/Creatinine [Mass ratio] 13.9 mg/mg 10-20 [facility] Work Phone: Laboratory - Hematology and Cell countson 12-30-2021 Erythrocyte distribution width (RBC) [Ratio] 13.9 % See Below [facility] Work Phone: Comment on above: Reference Range: 11. 5 - 14.5 Hematocrit (Bld) [Volume fraction] 41.3 % See Below [facility] Work Phone: Comment on above: Reference Range: 41. 0 - 52.0 Hemoglobin (Bld) [Mass/Vol] 13.9 g/dL See Below [facility] Work Phone: Comment on above: Reference Range: 13. 5 - 17.5 MCHC (RBC) [Mass/Vol] 33.7 g/dL See Below [facility] Work Phone: Comment on above: Reference Range: 32. 0 - 36.0 MCV (RBC) [Entitic vol] 96 fL 80 - 100 [facility] Work Phone: Platelets (Bld) [#/Vol] 140 10*3/uL below low threshold 150 - 450 [facility] Work Phone: RBC (Bld) [#/Vol] 4.31 {x10E12/L} below low threshold See Below [facility] Work Phone: Comment on above: Reference Range: 4.5 0 - 5.90 WBC (Bld) [#/Vol] 9.3 10*3/uL 4.4 - 11.3 [facility] Work Phone: Erythrocyte distribution width (RBC) [Entitic vol] 46.8 fL 35.1-43.9 [facility] Work Phone: Erythrocyte distribution width (RBC) [Ratio] 13.7 % 11.6-14.6 [facility] Work Phone: Immature granulocytes/100 WBC (Bld) 0.400 % 0.0-0.9 [facility] Work Phone: Comment on above: IG% - Immature Granu locytes (promyelocytes, myelocytes and metamyelocytes) > 1% indicates that a LEFT SHIFT is Present. MCH (RBC) [Entitic mass] 32.2 pg 27.0-32.0 [facility] Work Phone: Nucleated RBC/100 WBC (Bld) [Ratio] 0 % 0-5 [facility] Work Phone: MAGNESIUMon 12-30-2021 Magnesium [Mass/Vol] 1.90 mg/dL Normal 1.60 - 2.40 [facility] Comment on above: Performed By: #### M G #### [facility] [address] [address] [place] [address] MCHC Auto (RBC) [Mass/Vol]on 12-30-2021 MCHC (RBC) [Mass/Vol] 34.5 g/dL 32-36 [facility] Work Phone: Magnesium, Serumon 2 Magnesium [Mass/Vol] 1.90 mg/dL See Below [facility] Work Phone: Comment on above: Reference Range: 1.6 0 - 2.40 Mucus LM Ql (Urine sed)on Mucus Ql (Urine sed) 0 SEEN /hpf [facility] Work Phone: Nitrite Test strip Ql (U)on 12-30-2021 Nitrite Ql (U) Negative Negative [facility] Work Phone: No Panel Informationon 12-30 >90 >90 -[facility] Work Phone: Comment on above: CALCULATIONS OF SHARON MATED GFR ARE PERFORMED USING THE 2020 CKD-EPI STUDY REFIT EQUATION WITHOUT THE RACE VARIABLE FOR THE IDMS-TRACEABLE CREATININE METHODS.https://jasn.asnjournals.org/content//ASN .0815608370 0.0 {/100_WBC} 0.0 - 0.0 [facility] Work Phone: Estimated Creatinine Clearance Calc 119.05 ml/min [facility] Work Phone: Estimated GFR (MDRD) Amer 127 mL/min >60 [facility] Work Phone: Comment on above: GFR Calc Estimated GFR (MDRD) Non-Af Amer 105 mL/min >60 [facility] Work Phone: Comment on above: Non- GFR Calc Order Reconciliationon 12-30 Order Reconciliation Page 1 Admission Reconciliation Document Reconciliation Type: Admission requested on behalf of Geovanna Kahn (Advanced Practice Nurse-Admit) done by Geovanna Kahn (JEWEL CORNER BRUSHING MACHINE OPERATOR-[facility]) Admission - Reconciliation: 30-Dec-2021 11:40 by: Geovanna Kahn (JEWEL CORNER BRUSHING MACHINE OPERATOR-TRUST MANAGER ASSISTANT) Home MedicationsEnteredLast Dose TakenReconciled with current Order Reconciliation Comment/ Additional Information furosemide 40 mg oral tablet 1 tab(s) orally once a [id number] PM Furosemide Tablet (LASIX)DOSE = 40 mg Oral Dailyfurosemide 40 mg oral tablet is continued and suspended as Furosemide lisinopril 20 mg oral tablet 1 tab(s) orally once a [id number] AM Lisinopril Tablet (PRINIVIL, ZESTRIL)DOSE = 20 mg Oral Dailylisinopril 20 mg oral tablet continued as the inpatient order Lisinopril sotalol 120 mg oral tablet 1 tab(s) orally 2 times a [id number]-2021 AM Sotalol Tablet (BETAPACE)DOSE = 120 mg Oral 2 Times a Day sotalol 120 mg oral tablet continued as the inpatient order Sotalol Xarelto 20 mg oral tablet 1 tab(s) orally once a day (in the evening) PM Blood in Urine, Monitor for Xarelto 20 mg oral tablet continued as the inpatient order Blood in Urine, Monitor for; Xarelto 20 mg oral tablet continued as the inpatient order Bleeding, Monitor for; Xarelto 20 mg oral tablet continued as the inpatient order Rivaroxaban Xarelto 20 mg oral tablet 1 tab(s) orally once a day (in the evening) [id number] PM Bleeding, Monitor for Xarelto 20 mg oral tablet continued as the inpatient order Blood in Urine, Monitor for; Xarelto 20 mg oral tablet continued as the inpatient order Bleeding, Monitor for; Xarelto 20 mg oral tablet continued as the inpatient order Rivaroxaban Xarelto 20 mg oral tablet 1 tab(s) orally once a day (in the evening) PM Rivaroxaban Tablet (XARELTO)DOSE = 20 mg Oral ( every 1 day: 18:00 )Clinician Notes: WITH THE EVENING MEAL Xarelto 20 mg oral tablet continued as the inpatient order Blood in Urine, Monitor for; Xarelto 20 mg oral tablet continued as the inpatient order Bleeding, Monitor for; Xarelto 20 mg oral tablet continued as the inpatient order Rivaroxaban Additional Current Orders Bisacodyl Enteric Coated Enteric Coated Tablet (DULCOLAX)DOSE = 5 mg Oral Once, PRN Constipation Ciprofloxacin 400 mg IVPB/ Premixed Soln 200 mL (CIPRO)Every 12 HoursRecommended Infusion Time: 60 minute(s) Lactated Ringers Infusion IV Bag Volume = 1,000 mL Run at: 75 mL/hr IntraVenous Stop After 1 Doses Melatonin TabletDOSE = 3 mg Oral At Bedtime, PRN Insomnia metroNIDAZOLE (FLAGYL) 500 mg IVPB/ Premixed Soln 100 mL Every 8 HoursRecommended Infusion Time: 60 minute(s) Morphine Injectable DOSE = 2 mg IntraVenous Push Every 4 Hours, PRN Pain - Mod (4-6) Morphine Injectable DOSE = 4 mg IntraVenous Push Every 4 Hours, PRN Pain - Severe (7-10) Ondansetron Injectable (ZOFRAN)DOSE = 4 mg IntraVenous Push Every 4 Hours, PRN Nausea and/or Vomiting Sodium Chloride 0.9% Injectable Flush via Peripheral LineVolume = 10 mL IntraVenous Flush Every 8 Hours and as Needed Normal [facility] Patient Profile - Adult v2on 12-30-2021 Patient Profile - Adult v2 Profile: Initial Info: How to be AddressedRichi Mckeon Spoken Language PreferredEnglish Source of Informationpatient Stated Reason for Admissiontransferred for stomach pain Primary Contact Name and NumberHoma, Other Contact Names and NumbersMary, Wants Family/Rep Notified of Admissionyes, primary contact Notify PCPnotify PCP Informed of Patient Visiting Rightsyes Limitations on Visitors/Phone [place] To in Past 90 Daysnone Employment Statusemployed Current or Previous Servicenone Patient Belongingsremains with patient Patient Belongings Remaining with Patientmedical device; vision aids; cell phone/electronics; clothing Medications Brought to Hospitalno History of MDROno General Health: Weight in kg216.3 kilogram(s)(1) Weight in kde371.8 pound(s) Weight Methodactual (measured) (1) Scale Typebed (1) Height in cm195.5 centimeter(s)(1) Height in feet6 feet Height in inches4.97 inch(es) Height Methodstated BMI (kg/m2)56.593 square meter RSP Based Care: How would you like to participate in your careactively, be aware of whats going on What is the number one concern for you during this hospitalizationpain relief, getting better What is the most important thing we can do to support you during this hospitalizationtake me serious, respectfully honest Is there anything we need to know to best care for yoube honest Substance: Smoking Statusformer smoker Alcohol Useoccasionally Drug Usedenies Drug 2 Usedenies Health Mgmt: Symptoms/Conditions Managed at Homemusculoskeletal; cardiovascular Cardiovascular Managementmanaged Musculoskeletal Managementmanaged Relationship/Environ: Resource/Environmental Concernsnone Primary Source of Support/Comfortspouse Lives Withspouse Living Arrangementshouse Services [facility]ticipated at [facility] [place]tic[place]ated [place] Significant IndicatorsComplete Information Review: Allergies, Home Meds and Significant Events have been Reviewed and Verified with Patient/Familyyes ALLERGY, INTOLERANCE, ADVERSE EVENT: Allergies: penicillin: Drug, Anaphylaxis, Angioedema, Active Sulfacetamide Sodium-Sulfur: Drug, Itching, Hives/Urticaria, Active Electronic Signatures: Sena Guillen (BABAK) (Signed 30-Dec-2021 11:39) Authored: Initial Info, General Health, RSP Based Care, Substance, Health Mgmt, Relationship/Environ, Additional Information Last Updated: 30-Dec-2021 11:39 by Sena Guillen (BABAK) References: 1. Data Referenced From 1. Vital Signs 30-Dec-2021 10:45 Normal [facility] Platelets bldon 12-30-2021 Platelets (Bld) [#/Vol] 193 10*3/uL 150-450 [facility] Work Phone: Protein Test strip Ql (U)on 12-30-2021 Protein Ql (U) Negative Negative [facility] Work Phone: Serum or plasma albumin emre urement (mass/volume)on 12-30-2021 Albumin [Mass/Vol] 3.5 g/dL 3.2-5.0 [facility] Work Phone: Serum or plasma albumin/glob ulin mass ratioon 12-30-2021 Albumin/Globulin [Mass ratio] 1.1 {ratio} 0.9-2.4 [facility] Work Phone: Serum or plasma calcium emre urement (mass/volume)on 12-30-2021 Calcium [Mass/Vol] 9.1 mg/dL 8.5-10.1 [facility] Work Phone: Serum or plasma creatinine m easurement (mass/volume)on 12-30-2021 Creatinine [Mass/Vol] 0.79 mg/dL 0.70-1.30 [facility] Work Phone: Comment on above: The validity of the calculated GFR & GFRAA in patients over 70 years has not been determined. Clinical correlation is essential. Serum or plasma urea nitroge n measurement (mass/volume)on 12-30-2021 Urea nitrogen [Mass/Vol] 11 mg/dL 7-18 [facility] Work Phone: Squamous epithelial cells de tection in urine sediment by light microscopyon 12-30-2021 Epithelial cells.squamous LM Ql (Urine sed) 0 SEEN /hpf 0-5 [facility] Work Phone: Thin prep Papanicolaou smear with manual screeningon 12-30-2021 Thin prep Papanicolaou smear with manual screening 95 U/L 15-37 [facility] Work Phone: Thin prep Papanicolaou smear with manual screening 9 5-15 [facility] Work Phone: URINALYSISon 12-30-2021 Appearance (U) CLEAR Normal CLEAR [facility] Comment on above: Performed By: #### M G #### [facility] [address] [place] [address] Bilirubin Ql (U) SMALL(1+) Abnormal NEGATIVE [facility] Comment on above: Performed By: #### M G #### [address] [place] [address] Color (U) JAVY Normal STRAW,YELL OW [facility] Comment on above: Performed By: #### M G #### [address] [place] [address] Glucose Ql (U) Negative Normal NEGATIVE [facility] Comment on above: Performed By: #### M G #### [address] [place] [address] Hemoglobin Ql (U) Negative Normal NEGATIVE [facility] Comment on above: Performed By: #### M G #### [address] [address] Ketones Ql (U) Negative Normal NEGATIVE [facility] Comment on above: Performed By: #### M G #### [address] [place] [address] Leukocyte esterase Test strip Ql (U) Negative Normal NEGATIVE [facility] Comment on above: Performed By: #### M G #### [address] [address] Nitrite Ql (U) Negative Normal NEGATIVE [facility] Comment on above: Performed By: #### M G #### [address] [place] [address] pH (U) 5.0 [pH] Normal 5.0 - 8.0 [facility] Comment on above: Performed By: #### M G #### [address] [place] [address] Protein Ql (U) Negative Normal NEGATIVE [facility] Comment on above: Performed By: #### M G #### [address] [place] [address] Specific gravity (U) [Rel density] 1.044 High 1.005 - 1.035 [facility] Comment on above: Performed By: #### M G #### [address] [place] [address] Urobilinogen (U) [Mass/Vol] 4.0 mg/dL High 0.0 - 1.9 [facility] Comment on above: Result Comment: SOME PIGMENTS AND MEDICATIONS MAY CAUSE A FALSE POSITIVE UROBILINOGEN Performed By: #### M G #### [facility] [address] [place] [address] US RIGHT UPPER QUADRANTon US RIGHT UPPER QUADRANT Patient Name: RICHI HU STUDY: US RUQ ABDOMEN; 12/30/2021 2:30 pm INDICATION: RUQ abd pain, . COMPARISON: None. ACCESSION NUMBER(S): [id number] ORDERING CLINICIAN: GEOVANNA ALEGRE TECHNIQUE: Multiple images of the right upper quadrant were obtained. FINDINGS: LIVER: Suboptimally visualized/penetrated. Likely enlarged and diffusely echogenic. GALLBLADDER: Dilated measuring 6.3 cm transversely. Questionable mild wall thickening. Small partially shadowing stones near the neck. No definite tenderness overlying the gallbladder although the patient reportedly received pain medication. BILIARY TREE: Not adequately visualized. PANCREAS: Not adequately visualized. RIGHT KIDNEY: Measures 12.8 cm in length. No hydronephrosis. 3 mm echogenic focus in the midpole. IMPRESSION: Limited exam. The biliary tree and pancreas are not adequately visualized on this exam. Limited evaluation of the liver, likely enlarged, echogenic and difficult to penetrate, likely related to diffuse fatty infiltration. Small gallstones in dilated gallbladder with questionable gallbladder wall thickening. Cholecystitis not excluded. Clinical correlation recommended. Further evaluation with HIDA scan may be helpful. Elongated right kidney. Punctate echogenic possible vascular calcification or nonobstructive stone in the midpole. Electronically signed by: SANFORD MEDINA MD Normal [facility] Ultrasound Right Upper Quadr elder 12-30-2021 Ultrasound Right Upper Quadrant Normal [facility] [employer] Work Phone: Urinalysison 12-30-2021 Color (U) JAVY See Below [facility] [employer] Work Phone: Comment on above: Reference Range: STR AW,YELLOW Glucose Ql (U) Negative NEGATIVE [facility] [employer] Work Phone: Ketones Ql (U) Negative NEGATIVE [facility] [employer] Work Phone: Leukocyte esterase Test strip Ql (U) Negative NEGATIVE -[facility] Work Phone: pH (U) 5.0 [pH] 5.0 - 8.0 [facility] [place] [place] Work Phone: Protein (U) [Mass/Vol] Negative NEGATIVE -[facility] Work Phone: RBC (U) [#/Vol] Negative NEGATIVE -[facility] Work Phone: Specific gravity (U) [Rel density] 1.044 1 above high threshold See Below -[facility] [place] [place] Work Phone: Comment on above: Reference Range: 1.0 05 - 1.035 Urinalysis Negative NEGATIVE -[facility] Work Phone: Urinalysis 4.0 mg/dL above high threshold 0.0 - 1.9 -[facility] Work Phone: Comment on above: SOME PIGMENTS AND ME DICATIONS MAY CAUSE AFALSE POSITIVE UROBILINOGEN Urinalysis SMALL(1+) Abnormal NEGATIVE -[facility] Work Phone: Urinalysis CLEAR CLEAR [facility] [place] Work Phone: Urine blood detectionon 12-02 RBC Ql (U) Negative Negative [facility] Work Phone: RBC Ql (U) 0 SEEN /hpf 0-5 [facility] Work Phone: Urine clarityon 12-30-2021 Clarity (U) Clear Clear [facility] Work Phone: Urine color determinationon 10-31-2022 Color (U) Yellow Yellow [facility] Work Phone: Urine glucose detectionon Glucose Ql (U) Normal mg/dl Normal [facility] Work Phone: Urine leukocyte esterase det ection by dipstickon 12-30-2021 Leukocyte esterase Test strip Ql (U) 25 /ul Negative [facility] Work Phone: Urine pHon 12-30-2021 pH (U) 7.0 [pH] 5.0 - 8.0 [facility] Work Phone: Urine sediment bacteria coun t by microscopy (number/high power field)on 12-30-2021 Bacteria LM.HPF (Urine sed) [#/Area] RARE /hpf None Seen [facility] Work Phone: Urine specific gravity measu rementon 12-30-2021 Specific gravity (U) [Rel density] 1.010 1.002-1.03 0 [facility] Work Phone: Urobilinogen Auto test strip Ql (U)on 12-30-2021 Urobilinogen Ql (U) 4 mg/dl Normal [facility] Work Phone: CNPNon 06-18-2020 [employer] ([facility]) RICHI HU ([id number]) 1955 M Date Time Provider Department 06/18/20 LEONOR VELEZ [facility] During your visit today, we recorded the following information about you: Katlin Sequeira 06/18/2020 10:04 AM Signed Received request for medical records from [facility], Dr. Soham Lamb [address] [place], [place] [address] Ph.: [phone] Sent request to medical records. Sending copy of request to patients chart. Katlin Sequeira [facility] Allergies As of Date: 06/18/2020 Noted Allergy Reaction PENICILLINS 08/13/2004 SULFA (SULFONAMIDE ANTIBIOTICS) 08/13/2004 Date Reviewed: 08/13/2004 Reviewed by: Stephanie Delgado Ma - Reviewed Reason for Visit: Release Of Medical Records [2017] Prescriptions as of 06/18/2020 Sig: ULTRACET 37.5 MG-325 MG TABLET as needed VOLTAREN 75 MG TABLET,DELAYED* as needed XIFAXAN 200 MG TABLET as needed LEVBID 0.375 MG TABLET,EXTEND* take 1 tab by mouth 2 times p* Problem List As Of Date: 06/18/2020 (None) Encounter Status:Closed by KATLIN SEQUEIRA on 06/18/20 Normal [facility] RF-Lumbar Spine 2 or 3 Views IMPORTon 05-08-2020 RF-Lumbar Spine 2 or 3 Views IMPORT Images were obtained outside of [facility] [id number] Normal [facility] MR-Spine Lumbar W/WO Contras t IMPORTon 05-07-2020 MR-Spine Lumbar W/WO Contrast IMPORT Images were obtained outside of [facility] [id number] Normal [facility] Final Surgical Pathology Rep [facility] 05-01-2020 Final Surgical Pathology Report . Pathology Reports Accession: Collected Date/Time: Received Date/Time: Pathologist: [id number] 04/27/2020 10:45 EST 04/30/2020 08:18 MD ADOLFO MIRANDA Final Surgical Pathology Report DIAGNOSIS: A) SIGMOID COLON, POLYPECTOMY -- TUBULAR ADENOMA. B) SPLENIC FLEXURE OF COLON, POLYPECTOMY -- TUBULAR ADENOMA. COMMENT: [facility] - D# [id number] CLINICAL INFORMATION: Procedure: COLONOSCOPY WITH POLYPECTOMY Preoperative diagnosis: SCREENING Postoperative diagnosis: SAME SPECIMEN: A SIGMOID COLON POLYP B SPLENIC FLEXURE POLYP GROSS DESCRIPTION: A. Received in formalin, labeled with the patients name, Case #[id number], and sigmoid colon polyp are 4 ortega tissue fragments ranging from 0.1 to 0.2 cm. TS -1. B. Received in formalin labeled splenic flexure polyp is 1 ortega-pink polyp measuring 0.3 cm. Excision margin inked black. TS -1. Dictated by WILMAR MATHIS MICROSCOPIC DESCRIPTION: A&B) Slides reviewed. Electronically Signed by Pathology Report verified by [facility] Electronically signed by ADOLFO NIETO MD Sign out Date: 05/01/2020 16:22 Performing Lab: [facility], [address] [place] [id number] [place] [address] ([place]) Comment on above: Performed By: #### S PFR #### [place] [id number] COVID-19 virus antigen assay SARS-CoV-2 (COVID-19) Ag IA.rapid Ql (Resp) [facility] Work Phone: Vital Signs Date Time Vital Sign Value Performing Clinician Facility 07-19-2024 07:07-0400 Body height 190.[address] Tiarra Bravo MD Work Phone: [facility] 07-19-2024 07:07-0400 Body mass index (BMI) [Ratio] 56.2 kg/m2 Dr. Tiarra Bravo MD Work Phone: [facility] 07-19-2024 07:07-0400 Body weight 204.[address] Tiarra Bravo MD Work Phone: [facility] 07-19-2024 07:07-0400 Diastolic blood pressure 83 mm[Hg] Dr. iTarra Bravo MD Work Phone: [facility] 07-19-2024 07:07-0400 Heart rate 72 /min Dr. Tiarra Bravo MD Work Phone: [facility] 07-19-2024 07:07-0400 Respiratory rate 22 /min Dr. Tiarra Bravo MD Work Phone: [facility] 07-19-2024 07:07-0400 SaO2% (BldA) [Mass fraction] 96 % Dr. Tiarra Bravo MD Work Phone: [facility] 07-19-2024 07:07-0400 Systolic blood pressure 127 mm[Hg] Dr. Tiarra Bravo MD Work Phone: [facility] 02-09-2023 08:40-0500 Body temperature 97.3 [degF] Dr. Tiarra Bravo Work Phone: [facility] 02-09-2023 08:40-0500 Diastolic blood pressure 79 mm[Hg] Dr. Tiarra Bravo Work Phone: [facility] 02-09-2023 08:40-0500 Heart rate 77 /min Dr. Tiarra Bravo Work Phone: [facility] 02-09-2023 08:40-0500 Respiratory rate 16 /min Dr. Tiarra Bravo Work Phone: [facility] 02-09-2023 08:40-0500 SaO2% (BldA) [Mass fraction] 96 % Dr. Tiarra Bravo Work Phone: [facility] 02-09-2023 08:40-0500 Systolic blood pressure 128 mm[Hg] Dr. Tiarra Bravo Work Phone: [facility] 01-06-2023 14:53-0500 Body height 195.[address] Tiarra Bravo Work Phone: [facility] 01-06-2023 14:53-0500 Body mass index (BMI) [Ratio] 53.1 kg/m2 Dr. Tiarra Bravo Work Phone: [facility] 01-06-2023 14:53-0500 Body weight 203.[address] Tiarra Bravo Work Phone: [facility] 01-06-2023 14:53-0500 Diastolic blood pressure 73 mm[Hg] Dr. Tiarra Bravo Work Phone: [facility] 01-06-2023 14:53-0500 Heart rate 58 /min Dr. Tiarra Bravo Work Phone: [facility] 01-06-2023 14:53-0500 Respiratory rate 22 /min Dr. Tiarra Bravo Work Phone: [facility] 01-06-2023 14:53-0500 SaO2% (BldA) [Mass fraction] 99 % Dr. Tiarra Bravo Work Phone: [facility] 01-06-2023 14:53-0500 Systolic blood pressure 153 mm[Hg] Dr. Tiarra Bravo Work Phone: [facility] 01-14-2022 10:50-0500 Body height 195.[address] Tiarra Bravo Work Phone: [facility] Work Phone: 01-14-2022 10:50-0500 Body mass index (BMI) [Ratio] 53.8 kg/m2 Dr. Tiarra Bravo Work Phone: [facility] Work Phone: 01-14-2022 10:50-0500 Body weight 205.[address] Tiarra Bravo Work Phone: [facility] Work Phone: 01-14-2022 10:50-0500 Diastolic blood pressure 77 mm[Hg] Dr. Tiarra Bravo Work Phone: [facility] Work Phone: 01-14-2022 10:50-0500 Heart rate 64 /min Dr. Tiarra Bravo Work Phone: [facility] Work Phone: 01-14-2022 10:50-0500 Respiratory rate 18 /min Dr. Tiarra Bravo Work Phone: [facility] Work Phone: 01-14-2022 10:50-0500 SaO2% (BldA) [Mass fraction] 96 % Dr. Tiarra Bravo Work Phone: [facility] Work Phone: 01-14-2022 10:50-0500 Systolic blood pressure 130 mm[Hg] Dr. Tiarra Bravo Work Phone: [facility] Work Phone: 01-10-2022 11:15-0500 Body height 193.04 cm Referring Provider [facility] Work Phone: 01-10-2022 11:15-0500 Body mass index (BMI) [Ratio] 26.29 kg/m2 Referring Provider [facility] Work Phone: 01-10-2022 11:15-0500 Body surface area Derived from formula 2.29 m2 Referring Provider [facility] Work Phone: 01-10-2022 11:15-0500 Body weight 97.98 kg Referring Provider [facility] Work Phone: 12-30-2021 08:00-0400 Diastolic blood pressure 79 mm[Hg] [facility] Work Phone: 12-30-2021 08:00-0400 Heart rate 63 /min [facility] Work Phone: 12-30-2021 08:00-0400 Respiratory rate 16 /min [facility] Work Phone: 12-30-2021 08:00-0400 SaO2% (BldA) [Mass fraction] 96 % [facility] Work Phone: 12-30-2021 08:00-0400 Systolic blood pressure 138 mm[Hg] [facility] Work Phone: 12-30-2021 07:01-0400 Body temperature 97.4 [degF] [facility] Work Phone: 12-30-2021 00:04-0400 Body height 195.58 cm [facility] Work Phone: 12-30-2021 00:04-0400 Body mass index (BMI) [Ratio] 65.7 kg/m2 [facility] Work Phone: 12-30-2021 00:04-0400 Body weight 251.7 kg [facility] Work Phone: Encounters Encounter Date Encounter Type Care Provider Facility Start: 08-25-2024 ambulatory Taylor Griffin ty:[facility] Start: 07-19-2024 End: 07-19-2024 Patient encounter procedure Taylor Patel PRINCIPAL TRAINER-C -[facility] Work Phone: Start: 07-19-2024 End: 07-19-[address] Tiarra Bravo MD Work Phone: [facility] Work Phone: Start: 04-12-2024 End: 04-12-[address] Demetria Varela MD -Laboratory Work Phone: Start: 04-12-2024 End: 04-12-2024 ambulatory Tiarra S Jolliff Facility:[facility] Start: 02-22-2024 End: 02-22-2024 ambulatory Tiarra S Jolliff Facility:[facility] Start: 02-15-2024 ambulatory Terell Silviano Facility:[facility] Start: 02-15-2024 End: 02-15-2024 ambulatory Terell Silviano Facility:[facility] Start: 02-08-2024 End: 02-08-2024 ambulatory Tiarra S Jolliff Facility:[facility] Start: 01-25-2024 End: 01-25-2024 ambulatory Susie MUSA Facility:[facility] Start: 12-31-2023 End: 12-31-2023 ambulatory Tiarra S Jolliff Facility:[facility] Start: 12-14-2023 End: 12-14-2023 ambulatory Tiarra S Shelly Facility:[facility] Start: 04-01-2023 End: 04-01-[address] Tiarra Bravo Work Phone: [facility] Work Phone: Start: 04-01-2023 End: 04-01-[address] Tiarra Bravo Work Phone: [facility] Work Phone: Start: 02-13-2023 End: 02-13-[address] [facility]ravo [facility] [facility] Work Phone: Start: 02-13-2023 End: 02-13-[address] Tiarra Bravo Work Phone: [facility] Work Phone: Start: 02-09-2023 End: 02-09-[address] Tiarra Bravo Work Phone: [facility] Work Phone: Start: 02-04-2023 Non-patient / Non-visit Dr. Debra Bravo Work Phone: [facility] Start: 02-04-2023 End: 02-04-[address] Tiarra Bravo Work Phone: [facility] Work Phone: Start: 02-04-2023 End: 02-04-[address] [facility] Work [facility]: Start: 01-20-2023 Non-patient / Non-visit Dr. Debra Bravo Work Phone: [facility] Work Phone: Start: 01-20-2023 End: 01-20-[address] Tiarra Bravo Work Phone: [facility] Work Phone: Start: 01-20-2023 End: 01-20-[address] Tiarra Bravo Work Phone: [facility] Work Phone: Start: 01-15-2023 End: 01-15-[address] Tiarra Bravo Work Phone: [facility] Work Phone: Start: 01-15-2023 End: 01-15-[address] [facility] Start: 01-06-2023 End: 01-06-[address] Tiarra Bravo Work Phone: [facility] Work Phone: Start: 01-06-2023 End: 01-06-[address] Tiarra Bravo Work Phone: [facility] Work Phone: Start: 12-08-2022 End: 12-08-2022 ambulatory [facility] Work Phone: Start: 12-08-2022 End: 12-08-2022 Patient encounter procedure [facility] Start: 06-19-2022 End: 06-19-2022 ambulatory [facility] Work Phone: Start: 06-19-2022 End: 06-19-2022 Patient encounter procedure [facility] Start: 04-13-2022 Message Tiarra Bravo Work Phone: [facility] Work Phone: Start: 04-02-2022 End: 04-02-[address] Tiarra Bravo Facility:[id number] Start: 02-10-2022 End: 02-10-[address] Tiarra Bravo Work Phone: [facility] Work Phone: Start: 02-10-2022 End: 02-10-[address] Tiarra Bravo Work Phone: [facility] Start: 01-14-2022 End: 01-14-[address] Tiarra Bravo Work Phone: [facility] Start: 01-10-2022 AUDIT Referring [facility] Work Phone: Start: 01-04-2022 Message Referring Prov ider Unknown [facility] Work Phone: Start: 12-30-2021 End: 01-03-2022 Evaluation and management of inpatient PCP UNKNOWN Facility:[id number] Start: 12-30-2021 End: 12-30-2021 Emergency department patient visit [facility] Start: 10-15-2021 ambulatory EMMANUEL COREA Facility: [facility] Procedures Date Procedure Procedure Detail Performing Clinician Start: 04-12-2024 Measurement of 3,4-methylenedioxymethamph etamine in urine Dr. Tiarra Bravo MD Work Phone: Start: 04-12-2024 Methadone measuremen t, urine Dr. Tiarra Bravo MD Work Phone: Start: 04-12-[address] Tiarra Bravo MD Work Phone: Start: 12-30-2021 Computed tomography of abdomen and pelvis with intravenous contrast Start: 12-30-2021 CT of abdomen and pe lvis without contrast Viral antigen assay Plan of Treatment Date Care Activity Detail Author Start: 07-19-2024 Patient referral [facility] Work Phone: Start: 07-19-2024 Evaluation of diagnostic study results 12 Lead EKG performed by [facility] Start: 04-01-[address] [facility] Start: 06-19-[address] [facility] Start: 04-02-2022 ERCPANS, Provider: Argelia Abad, Status: Pen, Time: 7:30 AM ERCPANS, Provider: Argelia Abad, Status: Pen, Time: 7:30 AM [facility] Work Phone: 24 Hour ECG [facility] Work Phone: [facility] Immunizations Immunization Date Immunization Notes Care Provider Semaj esposito 01-01-2020 Influenza virus vaccine [facility] 01-09-2014 Influenza virus vaccine [facility] Payers Date Payer Category Payer Unknown [id number] 2024 Unknown [id number] 2023 Self-pay [id number] 2015 Unknown [id number] 2015 Unknown [id number] 1957 Unknown [id number] 2.16. [id number] 1957 Unknown [id number] 2.16. [id number] 1957 Unknown [id number] 2.16.8 [id number] 1957 Unknown [id number] 2.16.8 [id number] Unknown ANTHEM Unknown [id number] 2.16.8 [id number] Unknown [id number] 2.16.8 [id number] Unknown [id number] 2.16.8 [id number] Unknown [id number] 2.16.8 [id number] Unknown [id number] 2.16.8 [id number] Unknown [id number] 2.16.8 [id number] Unknown [id number] 2.16.8 [id number] Unknown [id number] 2.16.8 [id number] Unknown [id number] 2.16.8 [id number] Unknown [id number] 2.16.8 [id number] Unknown [id number] 2.16.8 [id number] Social History Date Type Detail Facility Start: 12-30-2021 End: 02-09-2023 Tobacco smoking status NHIS Unknown if ever smoked [facility] Start: 05-06-[address] [facility] Start: 05-06-2020 Spouse/ Signif icant Other [facility] Start: 07-23-[address] [facility] Start: 1955 Sex Assigned At Male [facility] Start: 02-15-2024 Tobacco smoking status NHIS Never smoked tobacco (finding) [facility] Clinical Notes 05-17-2020 to 01-03-2022 Note Date & Type Note Facility 01-03-2022 Note Send Summary: Discharge Summary Providers: Provider RoleProvider Name AttendingBebeto Naylor, Geovanna Dillon, Jerrell Sanderson, Pcp Note Recipients: Unknown, Pcp, Discharge: Summary: Admission Date: .30-Dec-2021 10:35:00 Discharge Date: 03-Jan-2022 Admission Reason: abdominal pain(1) Final Discharge Diagnoses: Intractable abdominal pain Cholecystitis with cholelithiasis transaminitis hyperbilirubinemia Afib on Xarelto Chronic diastolic CHF sleep apnea BIPAP at HS HTN Morbid obesity BMI 56.6 Procedures: Date: 01-Jan-2022 17:28:00 Procedure Name: 1. Laparoscopic cholecystectomy. Please note that this patient weighs about 540 pounds. 2. 3. 4. 5. l Hu Procedure Date: 12/31/2021 2:17 PM Date of : 1955 Admit Type: Inpatient Site: [facility] Endo 1 Ethnicity: Unknown Race: Unknown Attending MD: Argelia Abad MD, [id number] Dec 31, 2021 Condition at Discharge: Satisfactory Disposition at Discharge: Home Vital Signs: T PRBPMAPSpO2 [id number]/869646% Date/Time01/03 12: 12: 12: 12: 12: 12:00 Range(35.8C - 37.5C ) (56 - 74 ) (17 - 22 ) (109 - 124 )/ (51 - 66 ) (78 - 81 ) (93% - 98% ) As of 03-Jan-2022 09:00:00, patient is on 0 L/min of oxygen via CPAP. Highest temp of 37.5 C was recorded at 01/03 4:00 Date: Weight/Scale Type:Height: 30-Dec-2021 11:63883.3 kg / fti879.5 cm Physical Exam: Constitutional: Well developed, awake/alert/oriented x3, no distress, cooperative Eyes: clear sclera ENMT: no apparent injury Head/Neck: Neck supple, no apparent injury, Respiratory/Thorax: Patent airways, normal breath sounds with good chest expansion, thorax symmetric Cardiovascular: Regular, rate and rhythm, no murmurs, 2+ equal pulses of the extremities, normal S 1and S 2 Gastrointestinal: obese, Nondistended, soft,, +BS x 4 quadrants. KIMBER drain, surgical incision well approximated Musculoskeletal: ROM intact, no joint swelling, Extremities: pitting edema bilateral lower ext. wound right kennedy Skin: warm, dry, abdominal surgical incision well approximated Neurological: alert/oriented x 3, speech clear Psychiatric: appropriate mood and behavior Hospital Course: RICHI HU is a 66 year old Male with a past medical history of afib Xarelto Diastolic CHF, HLD/ HTN transferred from [place] ED with chief complaint of abdominal pain. Patient reports that on Thursday night he still does not feel well. However when he woke up Thursday morning he felt that pain in his lower abdominal pain from his umbilicus over to his right side. States around 330 that afternoon his abdominal pain started to aggressively get worse until about 930p the pain became unbearable. His pain was described as 10 out of 10 continuous with intermittent throbbing/sharp pain. His daughter gave him Pepto-Bismol with no improvement. CT abdomen pelvis obtained at outside ED showed mild bilateral ectasis, multiple small gallstones, and small left renal cyst measuring 1.3 cm, no appendicitis or obstruction. Patient was started on IVFs, made NPO and started on IV antibiotics. GI and surgery was consulted. RUQ US Small gallstones in dilated gallbladder with questionable gallbladder wall thickening. Cholecystitis not excluded. ERCP performed on 12/31 which showed nonbleeding gastric ulcer, biopsies performed, revealing defect consistent with stone seen on cholangiogram, choledocholithiasis was found, a biliary sphincterotomy was performed, plan for repeat ERCP in 3 months after cholecystectomy for stent removal. Liver enzymes started to downtrend. Patient taken for Lap erica on 01/01, he tolerated the procedure well. He was able to tolerate advancement in his diet to GI/soft. Surgery recommended no antibiotics were needed and KIMBER drain was removed before discharge. Xarelto was resumed on discharge. Patient is being discharged stable condition to follow-up with his PCP in 1 week, surgery as outpatient and GI in 3 months for stent removal. Discharge time greater than 34 minutes. Greater than 50% of time spent on counseling patient, and coordination of care. Discharge Information: and Continuing Care: Lab Results - Pending: Surgical Pathology Drawn at 01-Jan-2022 17:12:00 Radiology Results - Pending: None Discharge Instructions: Activity: activity as tolerated. Nutrition/Diet: low fat, slowly advance diet as tolerated Additional Orders: Additional Instructions: Follow up with GI for Repeat ERCP in 3 months for stent removal. Follow Up Appointments: Follow-Up Appointment 01: Physician/Dept/Service: Dr. Abad Reason for Referral: GI- Repeat ERCP in 3 months for stent removal. Follow-Up Appointment 02: Physician/Dept/Service: Dr. Washington Reason for Referral: (more content not included)... [facility] 12-30-2021 Note History of Present I llness: Admission Reason: abdominal pain HPI: RICHI HU is a 66 year old Male with a past medical history of afib Xarelto Diastolic CHF, HLD/ HTN transferred from [place] ED with chief complaint of abdominal pain. Patient reports that on Thursday night he still does not feel well. However when he woke up Thursday morning he felt that pain in his lower abdominal pain from his umbilicus over to his right side. States around 330 that afternoon his abdominal pain started to aggressively get worse until about 930p the pain became unbearable. His pain was described as 10 out of 10 continuous with intermittent throbbing/sharp pain. His daughter gave him Pepto-Bismol with no improvement. The pain continued to progress to the point that EMS was altered. Denies any fever, chills, chest pain, palpitations, cough, shortness of breath, nausea, vomiting, back pain, bloody stools, dizziness, weakness, numbness, tingling, paresthesias, headache, neck pain, vision changes, dysuria, hematuria. CT abdomen pelvis obtained at outside ED showed mild bilateral ectasis, multiple small gallstones, and small left renal cyst measuring 1.3 cm, no appendicitis or obstruction. CMP: Leukos 136, BUN 11, creatinine 0.79, AST 95, alkaline phos 123, ALT 71, total bilirubin 2.7 Past medical history: A. fib on Xarelto, diastolic CHF, history of pulmonary embolism, sleep apnea wears CPAP, hypertension, anxiety and history of stroke in 2019 Past surgical history: Right knee replacement, spinal fusion, ablation Social history: Denies tobacco or illicit drug use, rareAlcohol use Family history: Reviewed and noncontributory to presenting problems Allergies: Penicillin and sulfa drugs ROS: 12 systems reviewed and negative except as mentioned in the history of present illness above Comorbidities: Comorbidites: Comorbid Conditionsatrial fibrillation, congestive heart failure, hypertension Type of Atrial Fibrillationunknown Type of Congestive Heart Failurediastolic CHF Additional Specificitywith hypertension Acuity of CHFchronic Allergies: penicillin: Anaphylaxis, Angioedema Sulfacetamide Sodium-Sulfur: Itching, Hives/Urticaria Medications Prior to Admission: Admission Medication Reconciliation has not been completed for this patient. Objective: Objective Information: T PRBPMAPSpO2 [id number]% Date/Time12/30 10: 10: 10: 10: 10: 10:45 Range(36.5C - 36.5C ) (68 - 68 ) (18 - 18 ) (110 - 110 )/ (65 - 65 ) (83 - 83 ) (100% - 100% ) Physical Exam Narrative: Physical Exam: Constitutional: Well developed, awake/alert/oriented x3, no distress, cooperative Eyes: clear sclera ENMT: no apparent injury Head/Neck: Neck supple, no apparent injury, Respiratory/Thorax: Patent airways, normal breath sounds with good chest expansion, thorax symmetric Cardiovascular: Regular, rate and rhythm, no murmurs, 2+ equal pulses of the extremities, normal S 1and S 2 Gastrointestinal: obese, Nondistended, soft, tender RUQ and RLQ, , +BS x 4 quadrants Musculoskeletal: ROM intact, no joint swelling, Extremities: pitting edema bilateral lower ext. wound right kennedy Skin: warm, dry, Neurological: alert/oriented x 3, speech clear Psychiatric: appropriate mood and behavior Medications: Medications: ALTERNATIVE MEDICINES: 1. Melatonin: 3 mg Oral At Bedtime PRN ANTI-INFECTIVES: 1. metroNIDAZOLE (FLAGYL) 500 mg IVPB/ Premixed Soln 100 mL: 100 mL IntraVenous Piggyback Every 8 Hours CARDIOVASCULAR AGENTS: 1. Lisinopril: 20 mg Oral Daily 2. Sotalol: 120 mg Oral 2 Times a Day CENTRAL NERVOUS SYSTEM AGENTS: 1. Morphine Injectable: 2 mg IntraVenous Push Every 4 Hours PRN 2. Morphine Injectable: 4 mg IntraVenous Push Every 4 Hours PRN 3. Ondansetron Injectable: 4 mg IntraVenous Push Every 4 Hours PRN GASTROINTESTINAL AGENTS: 1. Bisacodyl Enteric Coated: 5 mg Oral Once PRN NUTRITIONAL PRODUCTS: 1. Sodium Chloride 0.9% Injectable Flush: 10 mL IntraVenous Flush Every 8 Hours and as Needed PRN Currently Suspended Medications 1. Furosemide: 40 mg Oral Daily 2. Rivaroxaban: 20 mg Oral Assessment and Plan: Assessment: Impression: Intractable abdominal pain Cholelithiasis, possible acute erica Afib on Xarelto Chronic diastolic CHF sleep apnea BIPAP at HTN Morbid obesity BMI Plan: - admit inpatient med surg - consult surgery, recommendations appreciated - consult GI, recommendations appreciated - RUQ US ordered - STAT labs - start on prophylactic antibiotics for possible erica , deescalate if indicated - NPO - IV morphine as needed for pain - IV Zofran as needed for nausea , use with caution, pt on sotalol, obtain EKG for baseline QTc - IVF LR at 75 x 1L for gentle hydration while NPO - DVtp- Xarelto, on HOLD for poss (more content not included)... [facility] 12-25-2020 Evaluation note Diagnosis Onset Date Resolution Atrial fibrillation/flutte r December 25, 2020 chronic July 19, 2024 10:32am Central sleep apnea associated with atrial fibrillation chronic July 19 10:32am Chronic diastolic (congestive) heart failure chronic July 19, 2024 10:32am Essential (primary) hypertension chronic July 19, 2024 10:32am History of radiofrequency ablation procedure for cardiac arrhythmia November 29, 2020 resolved July 19, 2024 10:32am [place] [employer] Work Phone: 1(453) 365-995004-01-2021 NoteHNO ID: [id number] Author: Leonor Velez Service: ? Author Type: Physician Type: Progress Notes Filed: 05/31/2020 8:58 AM Note Text: VIRTUAL VISIT PROGRESS NOTE This is a virtual visit using [employer] video visit. It required patient-provider interaction for the medical decision making as documented below. Richi Hu is a 64 year old male seen for follow up regarding severe back and left hip pain. He is s/p L5/S1 TLIF by me in 2011. He states he began to experience some left sided back pain last year that was managed well with Flexeril and Tylenol. After a long flight in March, his pain flared up in his left hip to a severe level that mad it difficult for him to ambulate. He was managed locally in [place] and underwent CONCETTA's which have offered significant relief. Pain today is barely noticeable. MRI is available for review. HISTORY REVIEWED (electronic chart updated): No past medical history on file. No past surgical history on file. No family history on file. Social History Tobacco Use - Smoking status: Never Smoker Substance Use Topics - Alcohol use: No - Drug use: Not on file Current Outpatient Medications Medication Sig - ULTRACET 37.5 MG-325 MG ORAL TAB as needed - VOLTAREN 75 MG ORAL TBEC as needed - XIFAXAN 200 MG ORAL TAB as needed - LEVBID 0.375 MG ORAL TB12 take 1 tab by mouth 2 times per day No current facility-administered medications for this visit. ALLERGIES Allergen Reactions - Penicillins - Sulfa (Sulfonamide * REVIEW OF SYSTEMS: As noted in HPI PHYSICAL EXAMINATION: VIDEO EXAM: (if completed, performed via video enabled technology) No exam performed MRI reviewed, it shows adjacent segment degeneration at L4/5 with spondylosis, degenerative disc disease, facet arthropathy and resultant severe stenosis. Moderate to severe stenosis present at L2/3 and L3/4 as well. ASSESSMENT: (M48.062) Spinal stenosis, lumbar region, with neurogenic claudication (M51.37) Degeneration of lumbar or lumbosacral intervertebral disc (M47.817) Lumbosacral spondylosis without myelopathy PLAN: At this point pain is well controlled with injection therapy. If symptoms return or progress, if weakness or severe neurogenic claudication occurs that is resistant to conservative measures, he would benefit from L2 to L5 decompression and fusion. There are no Patient Instructions on file for this visit. I spent more than 20 minutes [id number] with the patient and over half the time was devoted to counseling and/or coordination of care. Leonor Velez, [facility]03-18-2021 NoteHNO ID: [id number] Author: Evelyn Hernandez (Pa) Service: ? Author Type: Physician Meat Curer Type: Progress Notes Filed: 05/18/2020 1:54 PM Note Text: Spinal triage: Dr. Tello MD Referring Provider: Dr. Mark Landaverde MD Per Triage: Richi Hu is a 64 year old male that requests evaluation of lumbar spine. Per review, they have symptoms of lower back pain, left hip/buttocks pain, bilateral leg pain, difficulty walking, numbness, and weakness. 2012 Posterior Laminectomy and Fusion by Dr. Leonor Velez MD at [facility] CMT: Muscle relaxants Narcotics - Hydrocodone Injections at [facility] Studies (Reports unless indicated) 01/30/2020 - MRI of lumbar spine: Posterior fusion L5-S1 with hardware intact. L4-5 with worsening degenerative disc disease with moderate bilateral facet hypertrophy, lumbar disc herniation in moderate spinal stenosis with moderate bilateral lateral recess stenosis with abutment of the L5 nerve roots bilaterally and moderate bilateral neural foraminal stenosis Disposition: Please schedule with Dr. Leonor Velez MD with a face to face visit or virtual visit based on patient preference. If virtual, please have patient upload images prior to appointment. If face to face, the patient bring disc of images to appointment. Evelyn Hernandez PA-C May 18, 2020 1:53 [facility]03-18-2021 NoteHNO ID: [id number] Author: Mariel TURNER Service: ? Author Type: ? Type: Progress Notes Filed: 05/18/2020 1:54 PM Note Text: Patient name: Richi Hu Are you being referred by a [facility] Provider or Pain Management Provider at [facility]? No If answer is YES please schedule directly with surgeon, triage does not need to be completed. Is this a self-referral No If not, who is the Referring Provider Dr. Mark Landaverde MRI/CT/myelogram within 12 months? Yes If NO, please refer to medical spine or PCP to complete above imaging, triage does not need to be completed If YES,? please ask for the name/address of the facility where the MRI/CT/myelogram was completed: [place] [address] MRI/CT/myelogram viewable in Epic: No If not, please provide [phone] to fax in imaging reports for review. Also, please inform patient to hand carry imaging disc to appointment. XR (spine) within 12 months: Yes If YES,? please ask for the name/address of the facility where the XR was completed: [place] [address] Requested provider (First and Last name): unknown Are you interested in a virtual visit if offered? Yes 1. Where are you having symptoms related to this visit? Lumbar spine, left hip, left buttock, down both legs 2. Are you having any of the following symptoms: Difficulty walking Yes Numbness Yes Weakness Yes Trouble using your hands? No 3. Have you had any injections or physical therapy in the last 12 months? Yes If YES then please ask for the name/address of the facility where the injections and/or physical therapy was completed Injections: [place] [address] Have you tried any other kinds of non-surgical treatments in the last 12 months? (For example: NSAIDS, muscle relaxants, analgesics, oral steroids, Chiropractor, Acupuncture): muscle relaxants 4. Are you currently taking daily prescribed narcotic medications for your current symptoms (For example Oxycodone, Hydrocodone, Tramadol, Morphine, Other)? Yes Hydrocodone 5. Have you had previous spinal surgery for this same symptoms? Yes If YES? please ask for the name of facility/address of where the surgery was completed: [address] Leonor Velez [place] [address] Additional Comments : [phone] [facility] noteNo assessment information availableWNewark [facility] Work Phone: Evaluation note* Diagnosis Onset Date Resolution Status Essential (primary) hypertension chronic Paroxysmal atrial fibrillation [facility] Work Phone: Evaluation note* Diagnosis Onset Date Resolution Status Dyspnea acute Chronic diastolic (congestive) heart failure chronic Essential (primary) hypertension chronic Paroxysmal atrial fibrillation [facility] Work Phone: Evaluation note* Diagnosis Onset Date Resolution Status Dyspnea acute Chronic diastolic (congestive) heart failure chronic Essential (primary) hypertension chronic Paroxysmal atrial fibrillation chronic Impacted cerumen of both ears acute [facility] Work Phone: Hospital Discharge instructionsAmbulatory Orders* Electrophysiology Location: None [facility] Work Phone: Summary Purpose Family History No Family History Records Found Relationship Condition Age at Onset Recorded Date/T lalo father Malignant neoplasm Unknown Advance Directives No Advanced Directives Records Found Advance Directive Response Recorded Date/ Time Advance Directives No December 25, 2020 10:23am Living Will No December 30 12:09am Power of Size Stamper No December 30, 2021 12:09am Advance Directive Response Recorded Date/ Time Advance Directives No December 25, 2020 9:23am Living Will No December 29 11:09pm Power of Size Stamper No December 29, 2021 11:09pm Advance Directive Response Recorded Date/ Time Advance Directives No January 10:34am Chief Complaint and Reason for Visit Chief Complaint abdominal pain Chief Complaint abdominal pain 6 M FU Reason for Visit Essential (primary) hypertension Paroxysmal atrial fibrillation Chief Complaint AFIB/CP/SOB EORDERS Reason for Visit Dyspnea Chronic diastolic (congestive) heart failure Essential (primary) hypertension Paroxysmal atrial fibrillation Chief Complaint AFIB/CP/SOB EORDERS [place]OR[place]; BIPAP REPAP *DEVICE TAGGED AIRCURVE 10 MASK EXCHANGE Reason for Visit Dyspnea Chronic diastolic (congestive) heart failure Essential (primary) hypertension Paroxysmal atrial fibrillation Chief Complaint AFIB/CP/SOB EORDERS [place]; BIPAP REPAP *DEVICE TAGGED AIRCURVE 10 MASK EXCHANGE DYSPNEA Reason for Visit Dyspnea Chronic diastolic (congestive) heart failure Essential (primary) hypertension Paroxysmal atrial fibrillation Chief Complaint AFIB/CP/SOB EORDERS [place]; BIPAP REPAP *DEVICE TAGGED AIRCURVE 10 MASK EXCHANGE DYSPNEA DYSPNEA BILATERAL EAR DISCOMFORT Reason for Visit Dyspnea Chronic diastolic (congestive) heart failure Essential (primary) hypertension Paroxysmal atrial fibrillation Impacted cerumen of both ears Chief Complaint AFIB/CP/SOB EORDERS [place]; BIPAP REPAP *DEVICE TAGGED AIRCURVE 10 MASK EXCHANGE DYSPNEA DYSPNEA BILATERAL EAR DISCOMFORT EORDER Reason for Visit Dyspnea Chronic diastolic (congestive) heart failure Essential (primary) hypertension Paroxysmal atrial fibrillation Impacted cerumen of both ears Chief Complaint Admit Date 6 M FU July 19, 2024 10:32 am Reason for Visit Admit Date Atrial fibrillation/flutter July 19 10:32am 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 July 19, 2024 10:32am Chronic diastolic (congestive) heart jane lure July 19, 2024 10:32am Essential (primary) hypertension June 10:32am History of radiofrequency ab lation procedure for cardiac arrhythmia July 19, 2024 10:32am Additional Source Comments (unrecognized sect ion and content) No Status Records FoundNo Status Records FoundNo Status Records FoundNo Status Records FoundNo Status Records FoundNo Status Records Found INFORMATION SOURCE (unrecogn ized section and content) DATE CREATED AUTHOR 05/08/2020 [facility] ([place]) DATE CREATED AUTHOR AUTHOR'S ORGANIZ ATION 04/04/2021 [facility] DATE CREATED AUTHOR AUTHOR'S ORGANIZ ATION 04/07/2022 [facility] DATE CREATED AUTHOR AUTHOR'S ORGANIZ ATION 05/28/2022 [facility] DATE CREATED AUTHOR AUTHOR'S ORGANIZ ATION 06/07/2022 [facility] DATE CREATED AUTHOR AUTHOR'S ORGANIZ ATION 07/29/2024 [facility] Goals (unrecognized section and content) Goals may be documented in a n alternate sectionGoals may be documented in an alternate sectionGoals may be documented in an alternate sectionGoals may be documented in an alternate sectionGoals may be documented in an alternate sectionGoals may be documented in an alternate sectionGoals may be documented in an alternate sectionGoals may be documented in an alternate sectionGoals may be documented in an alternate sectionGoals may be documented in an alternate sectionGoals may be documented in an alternate section Care Teams (unrecognized sec tion and content) Team Status: Active Member Role Status Dates Dr. Tiarra Bravo MD Family Provider Active Dr. Tiarra Bravo MD Primary Care Provider Active Team Status: Inactive Member Role Status Dates Dr. Tiarra Bravo MD Primary Care Provider Active Dr. Demetria Varela MD Attending Provider, Referring Pr ovider Active Team Status: Inactive Member Role Status Dates Dr. Tiarra Bravo MD Primary Care Provider, Attendin g Provider Active Team Status: Inactive Member Role Status Dates Dr. Tiarra Bravo MD Primary Care Provider, Referrin g Provider Active Susie Neely PA, PA Attending Provider Active Team Status: Inactive Member Role Status Dates Dr. Tiarra Bravo MD Primary Care Provider Active Susie Neely PA, PA Attending Provider, Referr ing Provider Active Team Status: Active Member Role Status Dates Dr. Tiarra Bravo MD Primary Care Prov ider, Attending Provider, Referring Provider Active Susie Neely PA, PA Other Provider Active Team Status: Active Member Role Status Dates Dr. Tiarra Bravo MD Primary Care Provider Active Dr. Terell Shore MD Attending Provider Active Susie Neely PA, PA Referring Provider Active Team Status: Inactive Member Role Status Dates Dr. Tiarra Bravo MD Primary Care Prov ider, Attending Provider, Referring Provider Active Susie Neely PA, PA Other Provider Active Team Status: Active Member Role Status Dates Dr. Tiarra Bravo MD Primary Care Provider Active Dr. Terell Shore MD Attending Provider Active Team Status: Inactive Member Role Status Dates Dr. Tiarra Bravo MD Primary Care Provider, Referrin g Provider Active Wing Sauceda PA, PA Attending Provider Active Team Status: Inactive Member Role Status Dates Dr. Tiarra Bravo MD Primary Care Prov ider, Attending Provider, Referring Provider Active Team Status: Active Member Role Status Dates Dr. Omid Colindres MD Primary Care Provider Active Team Status: Inactive Member Role Status Dates Dr. Tiarra Bravo MD Primary Care Provider Active Start: April 12, 2024 End: April 12, 2024 Dr. Demetria Varela MD Attending Provider Active Start: April 12, 2024 End: April 12, 2024 Dr. Demetria Varela MD Referring Provider Active Start: April 12, 2024 End: April 12, 2024 Team Status: Inactive Member Role Status Dates Dr. Tiarra Bravo MD Referring Provider Active Start: July 19, 2024 End: July 19, 2024 Taylor Patel NP, PRINCIPAL TRAINER-C Attending Provider Active Start: July 19, 2024 End: July 19, 2024 Dr. Omid Colindres MD Primary Care Provider Active Start: July 19, 2024 End: July 19, 2024 FOR RECORDS PERTAINING TO PATIENTS WHO ARE OR HAVE BEEN ENROLLED IN A CHEMICAL DEPENDENCY/SUBSTANCEABUSE PROGRAM, SOME INFORMATION MAY BE OMITTED. This clinical summary was aggregated from multiple sources. Caution should be exercised in using it in the provision of clinical care. This summary normalizes information from multiple sources, and as a consequence, information in this document may materially change the coding, format and clinical context of patient data. In addition, data may be omitted in some cases. CLINICAL DECISIONS SHOULD BE BASED ON THE PRIMARY CLINICAL RECORDS. [employer] [facility]. provides no warranty or guarantee of the accuracy or completeness of information in this document.
[2024-08-07 12:04] LABS: Absolute Lymphocyte Count 1.65 X10^3/uL (0.83-4.51); Basophil# 0.04 X10^3/uL; Basophil% 0.3 % (0-1); Eosinophil# 0.06 X10^3/uL; Eosinophils% 0.5 % (0-5); Hematocrit 42.5 % (40-54); Hemoglobin 14.6 g/dL (13.0-16.5); Lymphocyte # 1.65 X10^3/ul (0.83-4.51); Mean Corp Hgb Conc 34.4 g/dL (32-36); Mean Corpuscular Hgb 31.9 pg (27.0-32.0); Mean Corpuscular Volume 92.8 fL (80-94); Mean Platelet Vol. 9.7 fl (6.2-12.0); Monocyte# 1.01 X10^3/uL; Monocyte% 8.6 % (0-10); NRBC Flagged by Analyzer 0 % (0-5); Neutrophil # 8.99 X10^3/uL (2.7-7.7); Neutrophil % 76.2 % (47-70); Platelet Count 165 K/mm3 (150-450); RBC Distribution Width CV 13.2 % (11.6-14.6); RBC Distribution Width SD 44.8 fl (35.1-43.9); Red Blood Count 4.58 M/mm3 (4.6-6.2); White Blood Count 11.8 K/mm3 (4.4-11.0)
--- NOTE | 2024-08-07 12:12 | RAD_ITS ---
PROCEDURE: CHEST 1 VIEW (PORTABLE) 08/07/2024 REASON FOR EXAM: DYSPNEA TECHNIQUE: Frontal view of the chest. COMPARISON: 03/10/2020 FINDINGS: Hardware: None Heart: Heart size is moderately enlarged. Lungs: No focal consolidation. No pneumothorax. No pleural effusion. Bones: The bones are unremarkable. Other: RAD/Chest 1 View (Portable) IMPRESSION: No Acute Findings. Moderate cardiomegaly. Reading Location: [id number]
[2024-08-07 12:14] LABS: Anion Gap 14 (5-15); BUN 18 mg/dL (4-19); BUN/Creat Ratio 21.6 RATIO (10-20); Calcium,Total 9.3 mg/dL (7.6-11.0); Carbon Dioxide 21.5 mmol/L (21.0-32.0); Chloride 100 mmol/L (98-108); Creatinine, Serum 0.81 mg/dL (0.70-1.20); EST Glomerular Filtration Rate 96 (>60); Estimated Creatinine Clearance 163.39 ml/min (50-250); Glucose 99 mg/dL (70-99); Potassium 3.5 mmol/L (3.3-5.1); Pro- Brain NATRIURETIC PEPTIDE 706 pg/mL (<=900); Sodium Level 135 mmol/L (133-145); Troponin T High Sensitivity 9 ng/L (<=22)
[2024-08-07 12:46] LABS: Lactic Acid 1.6 mmol/L (0.0-2.0)
[2024-08-07] MEDS: Clindamycin 900 MG/50 ML BAG 75 MG IV (13:00)
--- OUTSIDE RECORDS SUMMARY | 2024-08-07 13:09 | XMS RPT_ITS | CCD ---
Author Organization [facility] Care Team Providers Care Assembler Tester Name Role Phone Unknown, Referring Provider Unavailable [...] Jens BUNN, Dr. Anne Primary Care Provider [phone] Silviano, Terell Consulting Unavailable Silviano, Terell Attending Unavailable Jolliff, Tiarra S Primary Care Unavailable Silviano, [place] Referring Unavailable Silviano, [place] Consulting Unavailable Jolliff, Tiarra S Primary Care Unavailable Silviano, Terell Referring Unavailable Bob Gibson Attending Unavailable Jolliff, Tiarra S Referring Unavailable Jorge LIP CUTTER, Taylor Attending Unavailable Colindres, Omid Primary Care Unavailable Jorge LIP CUTTER, Taylor Attending Unavailable Jorge LIP CUTTER, Taylor Referring Unavailable Colindres, Omid Primary Care Unavailable Jolliff, Tiarra S Primary Care Unavailable Jolliff, Tiarra S Attending Unavailable Jolliff, Tiarra S Primary Care Unavailable Basali, Ayman Attending Unavailable Basali, Ayman Referring Unavailable Silviano, Terell Attending Unavailable Jolliff, Tiarra S Primary Care Unavailable Silviano, [place] Referring Unavailable Jolliff, Tiarra S Primary Care [...] sources) Penicillins Allergy to substance 2 Anaphylaxis [facility] (11 sources) Sulfonamides (Antibiotic) Allergy to substance 2 Hives [facility] (2 sources) Penicillins; Translations: [Penicillins] Allergy to drug (finding) [facility] Work Phone: (2 sources) Sulfonamides (Antibiotic); Translations: [Sulfa Drugs] Allergy to drug (finding) [facility] Work Phone: (1 source) Penicillins Drug allergy (disorder) 5 [facility] (1 source) Sulfonamides (Antibiotic) Drug allergy (disorder) 5 [facility] Medications Current Medications Medication Drug Class(es) [...] orally every evening with food: Fax to [facility]: Start: 06-14-2019 End: 03-23-2024 take 1 [...] 24, 2014 12:00am February 09, 2014 8:01am [id number] actuat albuterol 0.09 mg/actuat metered dose [...] / neomycin 3.5 mg/ml / polymyxin b 29615 unt/ml otic suspension (11 sources) Aminoglycoside Antibacterial, Polymyxin-class Antibacterial, Corticosteroid Start: 12-10-2019 End: 12-20-2019 Zlykgvge-Vrvzfrzwq-Ow 3.5-10,000-1 mg/mL-unit/mL-% drops,suspension Discontinued 3 NMA OTIC Q4H 10 December 10, 2019 12:00am December 19, 2019 12:00am December 20, 2019 12:03am apply to (cotton) wick; replace wick every 24 hours Start: 12-10-2019 End: 12-20-2019 Ogczqynf-Xineihmbe-Lo Discon tinued 3 DRP OTIC Q4H 12 [...] Date Episodic/Chronic Other aftercare (2 sources) Other shelter (current) drug therapy; Translations: [Other shelter (current) drug therapy] Onset: 11-28-2020 Episodic Other [...] Range Facility 12 Lead EKG performed by [facility] on 07-19-2024 12 Lead EKG performed by [facility] [address] [place] [address] 12 Lead EKG performed by [facility] 07/19/24 0706 MR#: [id number] Acct: [id number] Name: RICHI HU Rep #: [id number] : 1955 68 From: Taylor Patel NP LIP CUTTER-C Attending Dr: Taylor Patel LIP CUTTER-C Status: DEP A DEEP Ordering Dr: Taylor Patel NP LIP CUTTER-C Date: 07/19/24 Location: [facility] Sex: M C Admitted: B[facility]/12 Lead EKG performed by [facility] ECG Report Interpretation At rial flutter-fibrillation -Poor R-wave progression -may be secondary to pulmonary disease consider old anterior infarct. - Nonspecific T-abnormality. Low voltage with rightward P-axis and rotation -possible pulmonary disease. ABNORMAL Electronically signed on 07/20/2024 at 09:41 by Terell [employer] Software Version 8610 07/20/24 0942 Date Taylor GARCIA CC: Dr. Omid Colindres MD Date Dictated: 07/19/24705 Date Transcribed: 07/19/24705 Parts Salvager: GLYNN Signed [facility] Cardiology Visit Reporton Cardiology Visit Report [facility] [address] [place] [address] OFFICE VISIT Date of Service: 07/19/24 MR#: [id number] Acct: [id number] Name: RICHI HU Rep #: [id number] : 1955 Provider: JOSE torre Age/Sex: 68/M Location: [facility] Status: Signed HPI HPI History of Present [...] 96 Intake Visit Reasons: 6 M FU Slitter Service And Setter Required: No Is patient in pain?: No [...] colonoscopy (04/03 (more content not included)... [facility] L3410.9998on 04-17-2024 [facility] Misc[facility] Comment on above: Order Comment: [id number] URIN TOX Result Comment: TEST RESULTS LIMITS Tramadol, Urine Tramadol Positive Uruuvx=247 Tramadol Conf, MS, UR 205 ng/mL Cfftpk=063 Tramadol detected; this finding can be consistent with use of medications that include Ultram, Topalgic, Tradol, Zydol, or generic formulations. Drugs listed are installation service representative of common sources of the compound detected and are not intended to include all possible sources. Please Note: Drug test results should be interpreted in the context of clinical information. Patient metabolic variables, specific drug chemistry, and specimen characteristics can affect test outcome. Technical consultation is available if a test result is inconsistent with an expected outcome. Email: [email or web address] TESTING PERFORMED AT [facility]. ORIGINAL REPORT ON FILE IN LAB CONTAINS ADDITIONAL TEST SITE INFORMATION. Performed By: #### L 3410.9998, L505.5000 #### [facility] [address] [place], [place] [address], [address] [facility] Comment on above: Order Comment: [id number] TRAMIADOL Result Comment: [id number] 6+OXYCODONE-BUND (ng/mL) DRUG RESULT SCREEN CUTOFF ____ Amphetamines,Urine Negative ng/mL 1000 Amphetamine test includes Amphetamine and Methamphetamine. Barbiturates Negative ng/mL 200 Benzodiazepines Negative ng/mL 200 Cannabinoid Negative ng/mL 20 Cocaine (Metab) Negative ng/mL 300 Opiates Negative ng/mL 300 Opiates test includes Codeine, Morphine, Hydromorphone, Hydrocodone. Oxycodone/Oxymorphone,Urine Negative ng/mL 300 Test includes Oxycodone and Oxymorphone. TESTING PERFORMED AT [facility]. ORIGINAL REPORT ON FILE IN LAB CONTAINS ADDITIONAL TEST SITE INFORMATION. Performed By: #### L 3410.9998 #### [facility] [address] [place], [place], [address] No Panel InformationOrdered By: Demetria Varela on 04-12-2024 Urine Drug Screen Comment [facility] Comment on above: CONFIRMATORY TESTING FOR ALL [...] Opiates Ql (U) Negative < 300 ng/mL [facility] Urine Drug Screen (VISTA)on 04-12-2024 [facility]IST[facility] UDS PH 7 [facility] Comment on above: Order Comment: MED T OX Performed By: #### L 3410.9998, L505.5000 #### [facility] [address] [facility]. [place], [place], [address] Urine amphetamine measuremen tOrdered By: Demetria Varela on 04-12-2024 Amphetamines Ql (U) Negative <1000 ng/mL [facility] Urine benzodiazepine levelOr dered By: Demetria Varela on 04-12-2024 Benzodiazepines Ql (U) Negative < 200 ng/mL [facility] Urine cocaine levelOrdered B y: Demetria Varela on 04-12-2024 Cocaine Ql (U) Negative < 300 ng/mL [facility] Urine hovdn-2-stigjrlqesttcf abinol (THC) measurementOrdered By: Demetria Varela on 04-12-2024 Cannabinoids Screen Ql (U) Negative < 50 ng/mL [facility] Urine phencyclidine (PCP) de tectionOrdered By: Demetria Varela on 04-12-2024 Phencyclidine Ql (U) Negative < 25 ng/mL [facility] 12 Lead EKG performed by [facility] on 02-22-2024 12 Lead EKG performed by [facility] [address] [place] [address] 12 Lead EKG performed by [facility] 02/22/24905 MR#: [id number] Acct: [id number] Name: RICHI HU Rep #: [id number] : 1955 68 From: Susie May Attending Dr: DIMPLE Arndt Status: DEP AMB Ordering Dr: Susie Neely Date: 01/31 05/23 Location: [facility] Sex: M C Admitted: [facility]/12 Lead EKG performed by [facility] ECG Report Interpretation Si nus Rhythm -Poor R-wave progression -may be secondary to pulmonary disease consider old anterior infarct. - Nonspecific T-abnormality. Low voltage with rightward P-axis and rotation -possible pulmonary disease. ABNORMAL Electronically signed on 02/25/2024 at 09:47 by Terell Shore [employer] Version 8610 02/25/24950 Date uSsie MUSA CC: Dr. Tiarra Bravo MD Date Dictated: 02/22/24905 Date Transcribed: 02/22/24905 Parts Salvager: LIBERTAD Signed [facility] Procedure Reporton Procedure Report [facility] Medical Records Department [address] [place] [address] Procedure Report 02/15/24 1132 MR#: [id number] Acct: [id number] Name: RICHI HU Rep #: [id number] : 1955 68 From: Bob Gibson DO PCP: Dr. Tiarra Bravo MD Status:[facility] Location: [facility] Procedures Pulmonary Pulmonary Procedures /Diagnostic Testin Con Sedation Non-invasive Procedural Procedure Information Description of procedure: CONSCIOUS SEDATION REPORT DATE OF SERVICE: February 15, 2024 BRIEF HISTORY OF PRESENT ILLNESS: The patient is a 68-year-old male who presented to [facility] to undergo an elective outpatient cardioversion due [...] applicable): CC: Dr. Tiarra Bravo MD; Dr. eTrell Shore MD; Dr. Bob Gibson DO Signed [facility] Procedure Report [facility] Medical Records Department [address] [place] [address] Procedure Report 02/15/24 1121 MR#: [id number] Acct: [id number] Name: RICHI HU Rep #: [id number] : 1955 68 From: Terell Shore MD PCP: Dr. Tiarra Bravo MD Status:[facility] Location: [facility] Problems Associated Problem List Diagnoses (1) Atrial [...] prompt reversal to sinus rhythm. Procedure findings: Mormon of sinus rhythm Complications Complications: No 02/15/24 1122 Cosigner Signature (if applicable): CC: Dr. Tiarra Bravo MD; Dr. Terell Shore MD Signed [facility] Basic Metabolic Profile (BMP )on 02-08-2024 BUN/CRE 15.3 RATIO Normal 10-20 [facility] Comment on above: Performed By: #### L 500.2500 ####[facility] [address] [place], [address] CA,Total 8.9 mg/dL Normal 8.5-10.1 [facility] Comment on above: Performed By: #### L 500.2500 ####[facility] [address] [place], [address] Chloride [Moles/Vol] 107 mmol/L Normal 98-107 [facility] Comment on above: Performed By: #### L 500.2500 ####[facility] [address] [place], [address] CO2 [Moles/Vol] 25.0 mmol/L Normal 21.0-32.0 [facility] Comment on above: Performed By: #### L 500.2500 ####[facility] [address] [place], [address] Creatinine [Mass/Vol] 0.78 mg/dL Normal 0.70-1.30 [facility] Comment on above: Result Comment: The validity of the calculated GFR GFRAA in patients over 70 years has not been determined. Clinical correlation is essential. Performed By: #### L 500.2500 ####[facility] [address] [place], [address] EST GFR - AA 127 mL/min Normal >60 [facility] Comment on above: Result Comment: Afri can Libyan GFR Calc Performed By: #### L 500.2500 ####[facility] [address] [place], [address] GAP 6 Normal 5-15 [facility] Comment on above: Performed By: #### L 500.2500 ####[facility] [address] [place], [address] GFR/1.73 sq M.predicted among non-blacks MDRD (S/P/Bld) [Vol rate/Area] 105 mL/min/{1.73_m2} Normal >60 [facility] Comment on above: Result Comment: Non- GFR Calc Performed By: #### L 500.2500 ####[facility] [address] [place], [address] Glucose [Mass/Vol] 91 mg/dL Normal 74-106 [facility] Comment on above: Performed By: #### L 500.2500 ####[facility] [address] [place], [address] Potassium [Moles/Vol] 3.9 mmol/L Normal 3.5-5.1 [facility] Comment on above: Performed By: #### L 500.2500 ####[facility] [address] [place], [address] Sodium [Moles/Vol] 138 mmol/L Normal 136-145 [facility] Comment on above: Performed By: #### L 500.2500 ####[facility] [address] [place], [place], [address] Urea nitrogen [Mass/Vol] 12 mg/dL Normal 7-18 [facility] Comment on above: Performed By: #### L 500.2500 ####[facility] [address] [place], [place], [address] 12 Lead EKG performed by [facility] on 01-25-2024 12 Lead EKG performed by [place] [address] [place] [address] 12 Lead EKG performed by [facility] 01/25/24 1000 MR#: [id number] Acct: [id number] Name: RICHI HU Rep #: [id number] : 1955 68 From: uSsie May Attending Dr: DIMPLE Arndt Status: DEP AMB Ordering Dr: Susie Neely Date: 01/01 07/23 Location: [facility] Sex: M C Admitted: [facility]/12 Lead EKG performed by [facility] ECG Report Interpretation At rial fibrillation -irregular [...] Date Dictated: 01/25/24 1000 Date Transcribed: 01/25/24999 Parts Salvager: LIBERTAD Signed [facility] Cardiology Visit Reporton Cardiology Visit Report [facility] [address] [place] [address] OFFICE VISIT Date of Service: 01/25/24 MR#: [id number] Acct: [id number] Name: RICHI HU Rep #: [id number] : 1955 Provider: DIMPLE Bojorquez Age/Sex: 68/M Location: [facility] Status: Signed HPI HPI History of Present [...] Monitor Intake Visit Reasons: 6 M FU Slitter Service And Setter Required: No Is patient in pain?: No [...] noted. So (more content not included)... [facility] Lumbar Spine 2 or 3 Viewson 12-31-2023 Lumbar Spine 2 or 3 Views [facility] Imaging Services [address] [place] [address] [id number] Lumbar Spine 2 or 3 Views MR#: [id number] Acct: [id number] Name: RICHI HU Rep #: [id number] : 1955 M 68 From: Marcos Busby MD PCP: Dr. Tiarra Bravo MD Status: REG CLI Study: Lumbar Spine 2 or 3 Views Date of Exam: Exam# [id number] Ordering Dr: Demetria Varela MD :[id number] STUDY: X-RAY - LUMBAR SPINE REASON FOR [...] , CC: Dr. Tiarra Bravo MD; Dr. Demetria Varela MD Parts Salvager: Signed [facility] Basic Metabolic Profile (BMP )on 12-14-2023 BUN/CRE 14.7 RATIO Normal 12-19 [facility] Comment on above: Order Comment: Order Date: 12/14/23 Order Info: 0667-1 - BMP Order Info: [id number] - LIPID Order Info: 3016-3 - TSH Performed By: #### L 501.9520, L500.2500, L501.9985, L500.4100 #### [facility] [address] [place], [place], [address] CA,Total 9.5 mg/dL Normal 8.5-10.1 [facility] Comment on above: Order Comment: Order Date: 12/14/23 Order Info: 0667-1 - BMP Order Info: [id number] - LIPID Order Info: 3016-3 - TSH Performed By: #### L 501.9520, L500.2500, L501.9985, L500.4100 #### [facility] [address] [place], [address] Chloride [Moles/Vol] 103 mmol/L Normal 98-107 [facility] Comment on above: Order Comment: Order Date: 12/14/23 Order Info: 666-03 - BMP Order Info: [id number] - LIPID Order Info: 3 - TSH Performed By: #### L 501.9520, L500.2500, L501.9985, L500.4100 #### [facility] [address] [place], [address] CO2 [Moles/Vol] 29.0 mmol/L Normal 21.0-32.0 [facility] Comment on above: Order Comment: Order Date: 12/14/23 Order Info: 666-03 - BMP Order Info: - LIPID Order Info: 3015-05 - TSH Performed By: #### L 501.9520, L500.2500, L501.9985, L500.4100 #### [facility] [address] [place], [address] Creatinine [Mass/Vol] 0.88 mg/dL Normal 0.70-1.30 [facility] Comment on above: Order Comment: Order Date: 12/14/23 Order Info: 666-03 - BMP Order Info: - LIPID Order Info: [id number] - TSH Result Comment: The validity of the calculated GFR GFRAA in patients over 70 years has not been determined. Clinical correlation is essential. Performed By: #### L 501.9520, L500.2500, L501.9985, L500.4100 #### [facility] [address] [place], [address] EST GFR - AA 111 mL/min Normal >60 [facility] Comment on above: Order Comment: Order Date: 12/14/23 Order Info: 666-03 - BMP Order Info: - LIPID Order Info: [id number] - TSH Result Comment: Afri can Libyan GFR Calc Performed By: #### L 501.9520, L500.2500, L501.9985, L500.4100 #### [facility] [address] [place], [address] GAP 6 Normal 5-15 [facility] Comment on above: Order Comment: Order Date: 12/14/23 Order Info: 666-03 - BMP Order Info: - LIPID Order Info: 3016-3 - TSH Performed By: #### L 501.9520, L500.2500, L501.9985, L500.4100 #### [facility] [address] [place], [address] GFR/1.73 sq M.predicted among non-blacks MDRD (S/P/Bld) [Vol rate/Area] 92 mL/min/{1.73_m2} Normal >60 [facility] Comment on above: Order Comment: Order Date: 12/14/23 Order Info: 666-03 - BMP Order Info: - LIPID Order Info: [id number] - TSH Result Comment: Non- GFR Calc Performed By: #### L 501.9520, L500.2500, L501.9985, L500.4100 #### [facility] [address] [place], [address] Glucose [Mass/Vol] 86 mg/dL Normal 74-106 [facility] Comment on above: Order Comment: Order Date: 12/14/23 Order Info: 666-03 - BMP Order Info: [id number] - LIPID Order Info: 3016-3 - TSH Performed By: #### L 501.9520, L500.2500, L501.9985, L500.4100 #### [facility] [address] [place], [address] Potassium [Moles/Vol] 4.3 mmol/L Normal 3.5-5.1 [facility] Comment on above: Order Comment: Order Date: 12/14/23 Order Info: 666-03 - BMP Order Info: - LIPID Order Info: 3016-3 - TSH Performed By: #### L 501.9520, L500.2500, L501.9985, L500.4100 #### [facility] [address] [place], [address] Sodium [Moles/Vol] 138 mmol/L Normal 136-145 [facility] Comment on above: Order Comment: Order Date: 12/14/23 Order Info: 0667-1 - BMP Order Info: [id number] - LIPID Order Info: 3016-3 - TSH Performed By: #### L 501.9520, L500.2500, L501.9985, L500.4100 #### [facility] [address] [place], [address] Urea nitrogen [Mass/Vol] 13 mg/dL Normal 7-18 [facility] Comment on above: Order Comment: Order Date: 12/14/23 Order Info: 0667-1 - BMP Order Info: [id number] - LIPID Order Info: 3016-3 - TSH Performed By: #### L 501.9520, L500.2500, L501.9985, L500.4100 #### [facility] [address] [place], [address] Hemoglobin A1con 12-14-2023 HbA1c (Bld) [Mass fraction] 5.8 % High 3.8-5.6 [facility] Comment on above: Order Comment: Order Date: 12/14/23 Order Info: 4548-4 - A1C Result Comment: Norm al < 5.7 % Prediabetic 5.7 - 6.4 % Diabetic >or= 6.5 % Please note range changes. Performed By: #### L 501.9520, L500.2500, L501.9985, L500.4100 #### [facility] [address] [place], [address] Lipid Profileon 12-14-2023 Cholesterol [Mass/Vol] 134 mg/dL Normal 200 [facility] Comment on above: Order Comment: Order Date: 12/14/23 Order Info: 666-03 - BMP Order Info: - LIPID Order Info: 3 - TSH Result Comment: <200 mg/dL Desirable 200-240 mg/dL Borderline >240 mg/dL High Risk Performed By: #### L 501.9520, L500.2500, L501.9985, L500.4100 #### [facility] [address] [place], [address] Cholesterol in HDL [Mass/Vol] 33 mg/dL Low [facility] Comment on above: Order Comment: Order Date: 12/14/23 Order Info: 666-03 - BMP Order Info: - LIPID Order Info: [id number] - TSH Result Comment: The drugs N-Acetylcysteine and Metamizole may falsely depress this assay. Reference Range HDL <40 mg/dL Low HDL Cholesterol HDL >or= 60 mg/dL High HDL Cholesterol Performed By: #### L 501.9520, L500.2500, L501.9985, L500.4100 #### [facility] [address] [place], [address] Cholesterol in LDL [Mass/Vol] 76 mg/dL Normal 0-130 [facility] Comment on above: Order Comment: Order Date: 12/14/23 Order Info: 666-03 - BMP Order Info: - LIPID Order Info: [id number] - TSH Performed By: #### L 501.9520, L500.2500, L501.9985, L500.4100 #### [facility] [address] [place], [address] Cholesterol in VLDL [Mass/Vol] 25 mg/dL Normal 5-40 [facility] Comment on above: Order Comment: Order Date: 12/14/23 Order Info: 666-03 - BMP Order Info: - LIPID Order Info: 3 - TSH Performed By: #### L 501.9520, L500.2500, L501.9985, L500.4100 #### [facility] [address] [place], [address] Triglyceride [Mass/Vol] 123 mg/dL Normal [facility] Comment on above: Order Comment: Order Date: 12/14/23 Order Info: 0667-1 - BMP Order Info: [id number] - LIPID Order Info: [id number] - TSH Result Comment: The drugs N-Acetylcysteine and Metamizole may falsely depress this assay. Serum Triglycerides Reference Interval Normal <150 mg/dL Borderline high 150 - 199 mg/dL High 200 - 499 mg/dL Very High > or = 500 mg/dL Performed By: #### L 501.9520, L500.2500, L501.9985, L500.4100 #### [facility] [address] [facility] [place], [address] Protein+Creatinine Ratio,Uri neon 12-14-2023 PROT:CRE RATIO 135 mg/g CRE Normal 0-200 [facility] Comment on above: Performed By: #### L 501.0900 #### [facility] [address] [place], [address] Protein (U) [Mass/Vol] 24.8 mg/dL High <11.9 [facility] Comment on above: Performed By: #### L 501.0900 #### [facility] [address] [place], [address] UR CREAT 184.00 mg/dL Normal NO RANGE EST. [facility] Comment on above: Performed By: #### L 501.0900 #### [facility] [address] [place], [address] Thyroid Stim Hormone (TSH)on 12-14-2023 TSH 1.730 uIU/mL Normal 0.358-3.74 0 [facility] Comment on above: Order Comment: Order Date: 12/14/23 Order Info: 0667-1 - BMP Order Info: [id number] - LIPID Order Info: 3016-3 - TSH Performed By: #### L 501.9520, L500.2500, L501.9985, L500.4100 #### [facility] [place], [address] Laboratory - Drug toxicology Ordered By: Demetria Varela on 04-01-2023 Amphetamines Ql (U) Negative <1000 ng/mL [facility] Benzodiazepines Ql (U) Negative < 200 ng/mL [facility] Cannabinoids Screen Ql (U) Negative < 50 ng/mL [facility] Cocaine Ql (U) Negative < 300 ng/mL [facility] Opiates Ql (U) Negative < 300 ng/mL [facility] No Panel InformationOrdered By: Demetria Varela on 04-01-2023 MDMA (Ecstasy) Screen Negative < 500 ng/mL [facility] Urine Barbiturates Screen Negative < 200 ng/mL [facility] Urine Drug Screen Comment [facility] Comment on above: CONFIRMATORY TESTING FOR ALL [...] Urine Methadone Screen Negative < 300 ng/mL [facility] Urine phencyclidine (PCP) de tectionOrdered By: Demetria Varela on 04-01-2023 Phencyclidine Ql (U) Negative < 25 ng/mL [facility] Basophil percentageOrdered B y: Tiarra Bravo on 02-13-2023 Chloride [Moles/Vol] 102 mmol/L 98-107 [facility] Cholesterol [Mass/Vol] 144 mg/dL <200 [facility] Comment on above: <200 mg/dL Desirable 200-240 mg/dL Borderline >240 mg/dL High Risk Glucose [Mass/Vol] 109 mg/dL 74-106 [facility] Comment on above: Fasting Glucose resu lt from 100 to 125 mg/dL suggests IMPAIRED HOMEOSTASIS per A.D.A. criteria. Potassium [Moles/Vol] 3.8 mmol/L 3.5-5.1 [facility] Sodium [Moles/Vol] 137 mmol/L 136-145 [facility] Triglyceride [Mass/Vol] 122 mg/dL <199 [facility] Comment on above: The drugs N-Acetylcy steine and Metamizole may falsely depress this assay.Serum Triglycerides Reference Interval Normal <150 mg/dL Borderline high 150 - 199 mg/dL High 200 - 499 mg/dL Very High > or = 500 mg/dL Laboratory - Chemistry and C hemistry - challengeOrdered By: Tiarra Bravo on 02-13-2023 CO2 [Moles/Vol] 32.0 mmol/L 21.0-32.0 [facility] Urea nitrogen/Creatinine [Mass ratio] 18.1 mg/mg 10-20 [facility] No Panel InformationOrdered By: Tiarra Bravo on 02-13-2023 Estimated GFR (MDRD) Amer 120 mL/min >60 [facility] Comment on above: GFR Calc Estimated GFR (MDRD) Non-Af Amer 99 mL/min >60 [facility] Comment on above: Non- GFR Calc Prostate Specific Antigen Screen 0.61 ng/mL 0.00-4.00 [facility] Comment on above: This test was perfor med using the TPSA assay method [facility] system. Values obtained with differentassay methods cannot be used interchangably.When changing PSA assays in the course of monitoring apatient, additional sequential testing should be carriedout to confirm baseline values. Serum or plasma calcium emre urement (mass/volume)Ordered By: Tiarra Bravo on 02-13-2023 Calcium [Mass/Vol] 9.1 mg/dL 8.5-10.1 [facility] Serum or plasma cholesterol in HDL measurement (mass/volume)Ordered By: Tiarra Bravo on 02-13-2023 Cholesterol in HDL [Mass/Vol] 35 mg/dL >40 [facility] Comment on above: The drugs N-Acetylcy steine and Metamizole may falsely depress this assay. Reference Range HDL <40 mg/dL Low HDL Cholesterol HDL >or= 60 mg/dL High HDL Cholesterol Serum or plasma cholesterol in VLDL measurement (mass/volume)Ordered By: Tiarra Bravo on 02-13-2023 Cholesterol in VLDL [Mass/Vol] 24 mg/dL 5-40 [facility] Serum or plasma creatinine m easurement (mass/volume)Ordered By: Tiarra Bravo on 02-13-2023 Creatinine [Mass/Vol] 0.83 mg/dL 0.70-1.30 [facility] Comment on above: The validity of the calculated GFR & GFRAA in patients over 70 years has not been determined. Clinical correlation is essential. Serum or plasma low density lipoprotein (LDL) cholesterol measurement (mass/volume)Ordered By: Tiarra Bravo on 02-13-2023 Cholesterol in LDL [Mass/Vol] 85 mg/dL 0-130 [facility] Serum or plasma urea nitroge n measurement (mass/volume)Ordered By: Tiarra Bravo on 02-13-2023 Urea nitrogen [Mass/Vol] 15 mg/dL 7-18 [facility] Thin prep Papanicolaou smear with manual screeningOrdered By: Tiarra Bravo on 02-13-2023 Thin prep Papanicolaou smear with manual screening 3 5-15 [facility] Absolute lymphocyte countOrd ered By: Susie Neely on 01-06-2023 Lymphocytes Auto (Unsp spec) [#/Vol] 2.60 10*3/uL 0.83-4.51 [facility] Basophil percentageOrdered B y: Susie Neely on 01-06-2023 Basophils/100 WBC (Bld) 0.8 % 0-1 [facility] Chloride [Moles/Vol] 103 mmol/L 98-107 [facility] Eosinophils/100 WBC (Bld) 3.4 % 0-5 [facility] Glucose [Mass/Vol] 97 mg/dL 74-106 [facility] Neutrophils (Bld) [#/Vol] 5.1 10*3/uL 2.0-7.7 [facility] Neutrophils/100 WBC (Bld) 57.3 % 47-70 [facility] Potassium [Moles/Vol] 3.9 mmol/L 3.5-5.1 [facility] Sodium [Moles/Vol] 137 mmol/L 136-145 [facility] WBC (Bld) [#/Vol] 8.9 10*3/uL 4.4-11.0 [facility] Blood erythrocytes count (nu mber/volume)Ordered By: Susie Neely on 01-06-2023 RBC (Bld) [#/Vol] 4.91 10*6/uL 4.6-6.2 [facility] Blood hemoglobin measurement (mass/volume)Ordered By: Susie Neely on 01-06-2023 Hemoglobin (Bld) [Mass/Vol] 15.2 g/dL 13.0-16.5 [facility] Blood lymphocytes/100 leukoc ytesOrdered By: Susie Neely on 01-06-2023 Lymphocytes/100 WBC (Bld) 29.1 % 19-41 [facility] Blood monocytes/100 leukocyt esOrdered By: Susie Neely on 01-06-2023 Monocytes/100 WBC (Bld) 9.0 % 0-10 [facility] Blood platelet mean volumeOr dered By: Susie Neely on 01-06-2023 Platelet mean volume (Bld) [Entitic vol] 9.6 fL 6.2-12.0 [facility] Determination of erythrocyte mean corpuscular volume (MCV)Ordered By: Susie Neely on 01-06-2023 MCV (RBC) [Entitic vol] 93.3 fL 80-94 [facility] Hematocrit Auto (Bld) [Volum e fraction]Ordered By: Susie Neely on 01-06-2023 Hematocrit (Bld) [Volume fraction] 45.8 % 40-54 [facility] Laboratory - Chemistry and C hemistry - challengeOrdered By: Susie Neely on 01-06-2023 CO2 [Moles/Vol] 31.0 mmol/L 21.0-32.0 [facility] Magnesium [Mass/Vol] 2.2 mg/dL 1.6-2.6 [facility] Natriuretic peptide B (Bld) [Mass/Vol] 104.6 pg/mL 0-100 [facility] Urea nitrogen/Creatinine [Mass ratio] 17.1 mg/mg 10-20 [facility] Laboratory - Hematology and Cell countsOrdered By: Susie Neely on 01-06-2023 Erythrocyte distribution width (RBC) [Entitic vol] 45.5 fL 35.1-43.9 [facility] Erythrocyte distribution width (RBC) [Ratio] 13.3 % 11.6-14.6 [facility] Immature granulocytes/100 WBC (Bld) 0.400 % 0.0-0.9 [facility] Comment on above: IG% - Immature Granu locytes (promyelocytes, myelocytes and metamyelocytes) > 1% indicates that a LEFT SHIFT is Present. MCH (RBC) [Entitic mass] 31.0 pg 27.0-32.0 [facility] Nucleated RBC/100 WBC (Bld) [Ratio] 0 % 0-5 [facility] MCHC Auto (RBC) [Mass/Vol]Or dered By: Susie Neely on 01-06-2023 MCHC (RBC) [Mass/Vol] 33.2 g/dL 32-36 [facility] No Panel InformationOrdered By: Susie Neely on 01-06-2023 Estimated GFR (MDRD) Amer 112 mL/min >60 [facility] Comment on above: GFR Calc Estimated GFR (MDRD) Non-Af Amer 93 mL/min >60 [facility] Comment on above: Non- GFR Calc Thyroid Stimulating Hormone (TSH) 2.20 uIU/mL 0.358-3.74 [facility] Platelets bldOrdered By: Porter Neely on 01-06-2023 Platelets (Bld) [#/Vol] 211 10*3/uL 150-450 [facility] Serum or plasma calcium emre urement (mass/volume)Ordered By: Susie Neely on 01-06-2023 Calcium [Mass/Vol] 9.1 mg/dL 8.5-10.1 [facility] Serum or plasma creatinine m easurement (mass/volume)Ordered By: Susie Neely on 01-06-2023 Creatinine [Mass/Vol] 0.88 mg/dL 0.70-1.30 [facility] Comment on above: The validity of the calculated GFR & GFRAA in patients over 70 years has not been determined. Clinical correlation is essential. Serum or plasma urea nitroge n measurement (mass/volume)Ordered By: Susie Neely on 01-06-2023 Urea nitrogen [Mass/Vol] 15 mg/dL 7-18 [facility] Thin prep Papanicolaou smear with manual screeningOrdered By: Susie Neely on 01-06-2023 Thin prep Papanicolaou smear with manual screening 3 5-15 [facility] Basophil percentageOrdered B y: Tiarra Bravo on 12-08-2022 Chloride [Moles/Vol] 105 mmol/L 98-107 [facility] Glucose [Mass/Vol] 100 mg/dL 74-106 [facility] Comment on above: Fasting Glucose resu lt from 100 to 125 mg/dL suggests IMPAIRED HOMEOSTASIS per A.D.A. criteria. Potassium [Moles/Vol] 3.7 mmol/L 3.5-5.1 [facility] Sodium [Moles/Vol] 138 mmol/L 136-145 [facility] Laboratory - Chemistry and C hemistry - challengeOrdered By: Tiarra Bravo on 12-08-2022 CO2 [Moles/Vol] 26.0 mmol/L 21.0-32.0 [facility] Urea nitrogen/Creatinine [Mass ratio] 16.8 mg/mg 10-20 [facility] No Panel InformationOrdered By: Tiarra Bravo on 12-08-2022 Estimated GFR (MDRD) Amer 119 mL/min >60 [facility] Comment on above: GFR Calc Estimated GFR (MDRD) Non-Af Amer 98 mL/min >60 [facility] Comment on above: Non- GFR Calc Urine Microalbumin/Creatin ine Ratio 12.6 mg/g CRE <30 [facility] Serum or plasma calcium emre urement (mass/volume)Ordered By: Tiarra Bravo on 12-08-2022 Calcium [Mass/Vol] 8.9 mg/dL 8.5-10.1 [facility] Serum or plasma creatinine m easurement (mass/volume)Ordered By: Tiarra Bravo on 12-08-2022 Creatinine [Mass/Vol] 0.83 mg/dL 0.70-1.30 [facility] Comment on above: The validity of the calculated GFR & GFRAA in patients over 70 years has not been determined. Clinical correlation is essential. Serum or plasma urea nitroge n measurement (mass/volume)Ordered By: Tiarra Bravo on 12-08-2022 Urea nitrogen [Mass/Vol] 14 mg/dL 7-18 [facility] Thin prep Papanicolaou smear with manual screeningOrdered By: Tiarra Bravo on 12-08-2022 Thin prep Papanicolaou smear with manual screening 7 5-15 [facility] Thin prep Papanicolaou smear with manual screening 16.0 mg/L NO RANGE EST. [facility] Urine creatinine measurement (mass/volume)Ordered By: Tiarra Bravo on 12-08-2022 Creatinine (U) [Mass/Vol] 127.00 mg/dL NO RANGE EST. [facility] Laboratory - Drug toxicology Ordered By: Dr. Varela on 06-19-2022 Amphetamines Ql (U) Negative <1000 ng/mL [facility] Benzodiazepines Ql (U) Negative < 200 ng/mL [facility] Cannabinoids Screen Ql (U) Negative < 50 ng/mL [facility] Cocaine Ql (U) Negative < 300 ng/mL [facility] Opiates Ql (U) Negative < 300 ng/mL [facility] No Panel InformationOrdered By: Dr. Varela on 06-19-2022 MDMA (Ecstasy) Screen Negative < 500 ng/mL [facility] Urine Barbiturates Screen Negative < 200 ng/mL [facility] Urine Drug Screen Comment [facility] Comment on above: CONFIRMATORY TESTING FOR ALL [...] Urine Methadone Screen Negative < 300 ng/mL [facility] Urine phencyclidine (PCP) de tectionOrdered By: Dr. aVrela on 06-19-2022 Phencyclidine Ql (U) Negative < 25 ng/mL [facility] ERCPon 04-02-2022 ERCP PATIENTNAME Patient Name: Richi Hu EXAMDATE Procedure Date: 04/02/2022 10:33 AM PATIENTID PATIENTACCOUNTNUM PATIENTDOB Date of : 1955 ADMITTYPE Admit Type: Outpatient PATIENTROOM Site: [facility] 1 ETHNICITY Ethnicity: Not or RACE Race: White PROVDR Attending MD: Argelia Abad MD, [id number] ENDOPROCEDURENAME Procedure: ERCP INDICATION Indications: Common bile duct stone(s), Follow-up of ascending cholangitis, Stent removal, Prior bile duct stent placement, Prior Endoscopic Retrograde Cholangiopancreatography, S/p cholecytectomy PTPROFILE Patient Profile: This is a 66 year old male. Refer to note in patient chart for documentation of history and physical. PRIMARYPROVIDER Providers: Argelia Abad MD (Doctor), Sena Harrison RN (Nurse), Nuria Calderon, Clinical Pharmacist EDREFPROVIDER Referring: Argelia Abad MD CURRENT_MEDS Medicines: [...] A biliary stent was visible on the marketing finance specialist film. A standard esophagogastroduodenoscopy scope was used [...] results. CPT_CODES Procedure Code(s): --- Professional --- 81865, Esophagogastroduodenoscopy, flexible, transoral; with removal of foreign body(s) 01159, Esophagogastroduodenoscopy, flexible, transoral; with biopsy, single or multiple ICD_CODES Diagnosis Code(s): --- Professional --- Z98.890, Other specified postprocedural states K83.09, Other cholangitis Z46.59, Encounter for fitting and adjustment of other gastrointestinal appliance and device Z96.89, Presence of other specified functional implants K80.30, Calculus of bile duct with cholangitis, unspecified, without obstruction K31.89, Other diseases of stomach and duodenum CODINGSTMT CPT copyright 2020 [employer]. All rights reserved. The codes documented in this report are preliminary and upon materials scientist rev (more content not included)... Normal [facility] No Panel Informationon 04-02 [facility]enter [facility] Work Phone: [email or web address] } [facility]astroenter [facility] Work Phone: [facility] Work Phone: Order Reconciliationon 04-02 Order Reconciliation Page 1 Discharge Reconciliation Document Reconciliation Type: Discharge requested on behalf of Argelia Abad (Physician) done by Argelia Abad) Discharge - [...] 1 cap(s) orally once a day Normal [facility] Radiologyon 04-02-2022 Fluoroscopy duration Please click on the link to view the study images Normal -[facility] [facility] Work Phone: [facility] Surgical Pathology Depar tmenton 04-02-2022 [facility] Surgical Pathology Department Name RICHI HU Pathologist: KAVYA CLEMENTE Date of Procedure: 04/02/2022 Date Received: 04/02/2022 Date Reported 04/07/2022 Submitting Physician: ARGELIA ABAD MD Location: [facility] Other External # FINAL DIAGNOSIS A. ANTHONY AMPULLA BIOPSY: -- DUODENAL MUCOSA WITH MILD FOCAL SUPERFICIAL ACUTE INFLAMMATION. -- NO MALIGNANCY OR DYSPLASIA IDENTIFIED. Electronically Signed Out By KAVYA CLEMENTE/LUCIANO By the signature on this report, the individual or group listed as making the Final Interpretation/Diagnosis certifies that they have reviewed this case. Diagnostic interpretation performed at [facility] [address] [place] [id number] Clinical History: CBD stent removal, history of CBD stones Specimens Submitted As: A: ANTHONY AMPULLA BIOPSY Gross Description: Received in formalin, labeled with the patient's name and hospital number and A. Ampulla BX, is a fragment of ortega, soft tissue measuring 0.3 x 0.2 x 0.2 cm. The specimen is submitted in toto in one cassette. SBS sbs/04/03/2022 [facility] Department of Pathology [address] [place] [address] Normal [facility] Comment on above: Performed By: #### [facility] #### [facility] Surgical Pathology Department [address] [place] [address] No Panel Informationon 02-10 Prostate Specific Antigen Screen 0.75 ng/mL 0.00-4.00 [facility] Work Phone: Comment on above: This test was perfor med using the TPSA assay method for the[employer] chemistry system. Values obtained with differentassay methods cannot be used interchangably.When changing PSA assays in the course of monitoring apatient, additional sequential testing should be carriedout to confirm baseline values. CBCon 01-03-2022 Erythrocyte distribution width (RBC) [Ratio] 14.4 % Normal 11.5 - 14.5 [facility] Comment on above: Performed By: #### M G #### [address] [address] Hematocrit (Bld) [Volume fraction] 38.9 % Low 41.0 - 52.0 [facility] Comment on above: Performed By: #### M G #### [address] [address] Hemoglobin (Bld) [Mass/Vol] 12.7 g/dL Low 13.5 - 17.5 [facility] Comment on above: Performed By: #### M G #### [address] [address] MCHC (RBC) [Mass/Vol] 32.6 g/dL Normal 32.0 - 36.0 [facility] Comment on above: Performed By: #### M G #### [address] [address] MCV (RBC) [Entitic vol] 98 fL Normal 80 - 100 [facility] Comment on above: Performed By: #### M G #### [address] [address] NUCLEATED RBC 0.0 /100 WBC Normal 0.0 - 0.0 [facility] Comment on above: Performed By: #### M G #### [address] [address] Platelets (Bld) [#/Vol] 141 10*3/uL Low 150 - 450 [facility] Comment on above: Performed By: #### M G #### [address] [address] RBC 3.96 x10E12/L Low 4.50 - 5.90 [facility] Comment on above: Performed By: #### M G #### [address] [address] WBC (Bld) [#/Vol] 8.3 10*3/uL Normal 4.4 - 11.3 [facility] Comment on above: Performed By: #### M G #### [address] [address] COMPREHENSIVE PANELon 2021 Albumin [Mass/Vol] 2.9 g/dL Low 3.4 - 5.0 [facility] Comment on above: Performed By: #### C MP #### [address] [address] ALP [Catalytic activity/Vol] 106 U/L Normal 33 - 136 [facility] Comment on above: Performed By: #### C MP #### [address] [address] ALT [Catalytic activity/Vol] 80 U/L High 10 - 52 [facility] Comment on above: Result Comment: Sri ents treated with Sulfasalazine may generate falsely decreased results for ALT. Performed By: #### C MP #### [address] [address] Anion gap [Moles/Vol] 11 mmol/L Normal 10 - 20 [facility] Comment on above: Performed By: #### C MP #### [address] [address] AST [Catalytic activity/Vol] 41 U/L High 9 - 39 [facility] Comment on above: Performed By: #### C MP #### [address] [address] Bilirubin [Mass/Vol] 2.1 mg/dL High 0.0 - 1.2 [facility] Comment on above: Performed By: #### C MP #### [address] [address] Calcium [Mass/Vol] 8.0 mg/dL Low 8.6 - 10.3 [facility] Comment on above: Performed By: #### C MP #### [address] [address] Chloride [Moles/Vol] 104 mmol/L Normal 98 - 107 [facility] Comment on above: Performed By: #### C MP #### [address] [address] Creatinine [Mass/Vol] 0.63 mg/dL Normal 0.50 - 1.30 [facility] Comment on above: Performed By: #### C MP #### [address] [address] eGFR MALE >90 Normal >90 [facility] Comment on above: Result Comment: CALC ULATIONS OF ESTIMATED GFR ARE PERFORMED USING THE 2020 CKD-EPI STUDY REFIT EQUATION WITHOUT THE RACE VARIABLE FOR THE IDMS-TRACEABLE CREATININE METHODS. https://jasn.asnjournals.org/content/early//ASN.8822279 988 Performed By: #### C MP #### [address] [address] Glucose [Mass/Vol] 93 mg/dL Normal 74 - 99 [facility] Comment on above: Performed By: #### C MP #### [address] [address] HCO3 (Bld) [Moles/Vol] 25 mmol/L Normal 21 - 32 [facility] Comment on above: Performed By: #### C MP #### [address] [address] Potassium [Moles/Vol] 3.8 mmol/L Normal 3.5 - 5.3 [facility] Comment on above: Performed By: #### C MP #### [address] [address] Protein [Mass/Vol] 5.2 g/dL Low 6.4 - 8.2 [facility] Comment on above: Performed By: #### C MP #### [address] [address] Sodium [Moles/Vol] 136 mmol/L Normal 136 - 145 [facility] Comment on above: Performed By: #### C MP #### [address] [address] Urea nitrogen [Mass/Vol] 15 mg/dL Normal 6 - 23 [facility] Comment on above: Performed By: #### C MP #### [place] [id number] [place] [address] Laboratory - Chemistry and C hemistry - challengeon 01-03-2022 Albumin BCP dye [Mass/Vol] 2.9 g/dL below low threshold 3.4 - 5.0 [facility] [employer] Work Phone: ALP [Catalytic activity/Vol] 106 U/L 33 - 136 [facility] [employer] Work Phone: ALT With P-5'-P [Catalytic activity/Vol] 80 U/L above high threshold 10 - 52 [facility] [employer] Work Phone: Comment on above: Patients treated wit h Sulfasalazine may generate falsely decreased results for ALT. Anion gap [Moles/Vol] 11 mmol/L 10 - 20 [facility] [employer] Work Phone: AST With P-5'-P [Catalytic activity/Vol] 41 U/L above high threshold 9 - 39 [facility] [employer] Work Phone: Bilirubin [Mass/Vol] 2.1 mg/dL above high threshold 0.0 - 1.2 [facility] [employer] Work Phone: Calcium [Mass/Vol] 8.0 mg/dL below low threshold 8.6 - 10.3 [facility] [employer] Work Phone: Chloride [Moles/Vol] 104 mmol/L 98 - 107 -[facility] Gastroenter [facility] [employer] Work Phone: CO2 [Moles/Vol] 25 mmol/L 21 - 32 [facility] [employer] Work Phone: Creatinine [Mass/Vol] 0.63 mg/dL See Below [facility] [employer] Work Phone: Comment on above: Reference Range: 0.5 0 - 1.30 Glucose [Mass/Vol] 93 mg/dL 74 - 99 -[facility] Gastroenter ology-[facility] [employer] Work Phone: Potassium [Moles/Vol] 3.8 mmol/L 3.5 - 5.3 [facility]astroenter [facility] Work Phone: Protein [Mass/Vol] 5.2 g/dL below low threshold 6.4 - 8.2 [facility]enter [facility] Work Phone: Sodium [Moles/Vol] 136 mmol/L 136 - 145 -[facility] Gastroenter ology-[facility] Work Phone: Urea nitrogen [Mass/Vol] 15 mg/dL 6 - 23 [facility] [place] [place] [employer] Work Phone: Laboratory - Hematology and Cell countson 01-03-2022 Erythrocyte distribution width (RBC) [Ratio] 14.4 % See Below [facility] Gastroenter [facility] Work Phone: Comment on above: Reference Range: 11. 5 - 14.5 Hematocrit (Bld) [Volume fraction] 38.9 % below low threshold See Below [facility] [place] [place] Work Phone: Comment on above: Reference Range: 41. 0 - 52.0 Hemoglobin (Bld) [Mass/Vol] 12.7 g/dL below low threshold See Below [facility]astroenter [facility] Work Phone: Comment on above: Reference Range: 13. 5 - 17.5 MCHC (RBC) [Mass/Vol] 32.6 g/dL See Below [facility] Gastroenter ology-[facility] Work Phone: Comment on above: Reference Range: 32. 0 - 36.0 MCV (RBC) [Entitic vol] 98 fL 80 - 100 -[facility] Gastroenter ology-[facility] Work Phone: Platelets (Bld) [#/Vol] 141 10*3/uL below low threshold 150 - 450 -[facility] Gastroenter ology-[facility] Work Phone: RBC (Bld) [#/Vol] 3.96 {x10E12/L} below low threshold See Below -[facility] [place] [place] Work Phone: Comment on above: Reference Range: 4.5 0 - 5.90 WBC (Bld) [#/Vol] 8.3 10*3/uL 4.4 - 11.3 [facility] Work Phone: MAGNESIUMon 01-03-2022 Magnesium [Mass/Vol] 1.80 mg/dL Normal 1.60 - 2.40 [facility] Comment on above: Performed By: #### M G #### [facility] [address] [place] [address] Magnesium, Serumon 2 Magnesium [Mass/Vol] 1.80 mg/dL See Below [facility] Gastroenter [facility] Work Phone: Comment on above: Reference Range: 1.6 0 - 2.40 No Panel Informationon 01-03 >90 >90 -[facility] Gastroenter [facility] Work Phone: Comment on above: CALCULATIONS OF SHARON MATED GFR ARE PERFORMED USING THE 2020 CKD-EPI STUDY REFIT EQUATION WITHOUT THE RACE VARIABLE FOR THE IDMS-TRACEABLE CREATININE METHODS.https://jasn.asnjournals.org/content//ASN .7585026508 0.0 {/100_WBC} 0.0 - 0.0 -[facility] Work Phone: Order Reconciliationon 01-03 Order Reconciliation Page 1 Discharge Reconciliation Document Reconciliation Type: Discharge requested on behalf of Geovanna Kahn (Advanced Practice Nurse-Admit) done by Geovanna Kahn ([facility]) Discharge - Reconciliation: 03-Jan-2022 13:19 by: Geovanna Kahn ([facility]) Discharge - Reset to Incomplete: 04-Jan-2022 12:33 by: Geovanna Kahn ([facility]) Discharge - Reconciliation: 04-Jan-2022 12:33 by: Geovanna Kahn ([facility]) Discharge - Reset to Incomplete: 04-Jan-2022 12:39 by: Bebeto Naylor) Discharge - Reconciliation: 04-Jan-2022 12:41 by: Bebeto Naylor) Discharge - Reset to Incomplete: 04-Jan-2022 15:18 by: Bebeto Naylor) Discharge - Reconciliation: 04-Jan-2022 15:19 by: Bebeto Naylor) Discharge - Reset to Incomplete: 04-Jan-2022 19:10 by: Geovanna Kahn ([facility]) Discharge - Reconciliation: 04-Jan-2022 19:10 by: Geovanna Kahn ([facility]) Home Medications EnteredHOME MEDICATIONS AT DISCHARGE [...] continued as lisinopril 20 mg oral tablet [place] 5 mg-325 mg oral tablet 1 tab(s) orally every 6 hours, As Needed 30-Dec-2021 13:21 [place] 5 mg-325 mg oral tablet 1 tab(s) orally every 6 hours, As Needed 04-Jan-2022 12:33 Discontinued; Discontinue from ORM Prescription is created for [place] 5 mg-325 mg oral tablet rivaroxaban 20 [...] be shared with your follow-up providers (doctor, clay thrower, physical therapist, etc.). Guidelines for a Healthy Lifestyle All Active Home Medications at time of Discharge Reconciliation: 04-Jan-2022 19:10 (more content not included)... Normal [facility] CBCon 01-02-2022 Erythrocyte distribution width (RBC) [Ratio] 14.3 % Normal 11.5 - 14.5 [facility] Comment on above: Performed By: #### C BC ####[facility] [place] [address] Hematocrit (Bld) [Volume fraction] 39.3 % Low 41.0 - 52.0 [facility] Comment on above: Performed By: #### C BC ####[id number] [place] [address] Hemoglobin (Bld) [Mass/Vol] 12.9 g/dL Low 13.5 - 17.5 [facility] Comment on above: Performed By: #### C BC ####[address] [address] MCHC (RBC) [Mass/Vol] 32.8 g/dL Normal 32.0 - 36.0 [facility] Comment on above: Performed By: #### C BC ####[address] [address] MCV (RBC) [Entitic vol] 97 fL Normal 80 - 100 [facility] Comment on above: Performed By: #### C BC ####[address] [address] NUCLEATED RBC 0.0 /100 WBC Normal 0.0 - 0.0 [facility] Comment on above: Performed By: #### C BC ####[address] [address] Platelets (Bld) [#/Vol] 143 10*3/uL Low 150 - 450 [facility] Comment on above: Performed By: #### C BC ####[address] [address] RBC 4.04 x10E12/L Low 4.50 - 5.90 [facility] Comment on above: Performed By: #### C BC ####[address] [address] WBC (Bld) [#/Vol] 10.4 10*3/uL Normal 4.4 - 11.3 [facility] Comment on above: Performed By: #### C BC ####[address] [address] COMPREHENSIVE PANELon 2021 Albumin [Mass/Vol] 3.1 g/dL Low 3.4 - 5.0 [facility] Comment on above: Performed By: #### M G #### [address] [address] ALT [Catalytic activity/Vol] 111 U/L High 10 - 52 [facility] Comment on above: Result Comment: Sri ents treated with Sulfasalazine may generate falsely decreased results for ALT. Performed By: #### M G #### [address] [place] [address] AST [Catalytic activity/Vol] 71 U/L High 9 - 39 [facility] Comment on above: Performed By: #### M G #### [address] [place] [address] eGFR MALE >90 Normal >90 [facility] Comment on above: Result Comment: CALC ULATIONS OF ESTIMATED GFR ARE PERFORMED USING THE 2020 CKD-EPI STUDY REFIT EQUATION WITHOUT THE RACE VARIABLE FOR THE IDMS-TRACEABLE CREATININE METHODS. https://jasn.asnjournals.org/content/early/ASN.2926501 988 Performed By: #### M G #### [address] [place] [address] HCO3 (Bld) [Moles/Vol] 23 mmol/L Normal 21 - 32 [facility] Comment on above: Performed By: #### M G #### [address] [place] [address] ALP [Catalytic activity/Vol] 118 U/L Normal 33 - 136 [facility] [employer] Work Phone: Comment on above: Performed By: #### M G #### [address] [place] [address] Anion gap [Moles/Vol] 13 mmol/L Normal 10 - 20 [facility] [employer] Work Phone: Comment on above: Performed By: #### M G #### [address] [place] [address] Bilirubin [Mass/Vol] 2.4 mg/dL High 0.0 - 1.2 [facility] [employer] Work Phone: Comment on above: Performed By: #### M G #### [address] [place] [address] Calcium [Mass/Vol] 8.2 mg/dL Low 8.6 - 10.3 [facility] Work Phone: Comment on above: Performed By: #### M G #### [address] [place] [address] Chloride [Moles/Vol] 104 mmol/L Normal 98 - 107 [facility] Work Phone: Comment on above: Performed By: #### M G #### [address] [place] [address] Creatinine [Mass/Vol] 0.63 mg/dL Normal 0.50 - 1.30 [facility] Work Phone: Comment on above: Reference Range: 0.5 0 - 1.30 Performed By: #### M G #### [address] [place] [address] Glucose [Mass/Vol] 160 mg/dL High 74 - 99 [facility] Work Phone: Comment on above: Performed By: #### M G #### [address] [place] [address] Potassium [Moles/Vol] 3.8 mmol/L Normal 3.5 - 5.3 [facility] Work Phone: Comment on above: Performed By: #### M G #### [address] [place] [address] Protein [Mass/Vol] 5.3 g/dL Low 6.4 - 8.2 [facility] Work Phone: Comment on above: Performed By: #### M G #### [address] [place] [address] Sodium [Moles/Vol] 136 mmol/L Normal 136 - 145 [facility] Work Phone: Comment on above: Performed By: #### M G #### [facility] [address] [facility] [address] Urea nitrogen [Mass/Vol] 15 mg/dL Normal 6 - 23 [facility] LEIGHMarcela Work Phone: Comment on above: Performed By: #### M G #### [address] [place] [address] Daily Progress Note-General Internal Medicineon 01-02-2022 Daily [...] today. Objective Data: Objective Information: T PRBPMAPSpO2 [id number]% Date/Time01/02 8: 8: 8: 8: 8:00 Range(36.2C [...] CODE STATUS: FULL Electronic Signatures: Geovanna Kahn ([employer] SUPERVISOR-TECHNICAL MAINTENANCE SPECIALIST) (Signed 02-Jan-2022 11:56) Authored: Service, Subjective Data, Objective Data, Assessment and Plan, Note Completion Last Updated: 02-Jan-2022 11:56 by Geovanna Kahn ([employer] SUPERVISOR-TECHNICAL MAINTENANCE SPECIALIST) [facility] Daily Progress Note-Surgeryo n 01-02-2022 Daily Progress [...] overnight. Objective Data: Objective Information: T PRBPMAPSpO2 [id number]% Date/Time01/02 12: 12: 12: 12: 12:00 Range(36C [...] defer further orders. Electronic Signatures: Taylor Walton ([employer] SUPERVISOR-TECHNICAL MAINTENANCE SPECIALIST) (Signed 02-Jan-2022 13:34) Authored: Service, Subjective Data, Objective Data, Assessment and Plan, Note Completion Last Updated: 02-Jan-2022 13:34 by Taylor Walton ([employer] SUPERVISOR-TECHNICAL MAINTENANCE SPECIALIST) Normal [facility] Laboratory - Chemistry and C hemistry - challengeon 01-02-2022 Albumin BCP dye [Mass/Vol] 3.1 g/dL below low threshold 3.4 - 5.0 [facility] [employer] Work Phone: ALT With P-5'-P [Catalytic activity/Vol] 111 U/L above high threshold 10 - 52 [facility] [employer] Work Phone: Comment on above: Patients treated wit h Sulfasalazine may generate falsely decreased results for ALT. AST With P-5'-P [Catalytic activity/Vol] 71 U/L above high threshold 9 - 39 [facility] [employer] Work Phone: CO2 [Moles/Vol] 23 mmol/L 21 - 32 [facility] [employer] Work Phone: Laboratory - Hematology and Cell countson 01-02-2022 Erythrocyte distribution width (RBC) [Ratio] 14.3 % See Below [facility] [employer] Work Phone: Comment on above: Reference Range: 11. 5 - 14.5 Hematocrit (Bld) [Volume fraction] 39.3 % below low threshold See Below [facility] [employer] Work Phone: Comment on above: Reference Range: 41. 0 - 52.0 Hemoglobin (Bld) [Mass/Vol] 12.9 g/dL below low threshold See Below [facility] [employer] Work Phone: Comment on above: Reference Range: 13. 5 - 17.5 MCHC (RBC) [Mass/Vol] 32.8 g/dL See Below [facility] [employer] Work Phone: Comment on above: Reference Range: 32. 0 - 36.0 MCV (RBC) [Entitic vol] 97 fL 80 - 100 [facility] [employer] Work Phone: Platelets (Bld) [#/Vol] 143 10*3/uL below low threshold 150 - 450 [facility] Work Phone: RBC (Bld) [#/Vol] 4.04 {x10E12/L} below low threshold See Below [facility] Work Phone: Comment on above: Reference Range: 4.5 0 - 5.90 WBC (Bld) [#/Vol] 10.4 10*3/uL 4.4 - 11.3 [facility] Work Phone: Magnesium, Serumon Magnesium [Mass/Vol] 1.80 mg/dL Normal 1.60 - 2.40 [facility] Work Phone: Comment on above: Reference Range: 1.6 0 - 2.40 Performed By: #### M G #### [address] [address] No Panel Informationon 01-02 >90 >90 [facility] Work Phone: Comment on above: CALCULATIONS OF SHARON MATED GFR ARE PERFORMED USING THE 2020 CKD-EPI STUDY REFIT EQUATION WITHOUT THE RACE VARIABLE FOR THE IDMS-TRACEABLE CREATININE METHODS.https://jasn.asnjournals.org/content/early//ASN .6193337540 0.0 {/100_WBC} 0.0 - 0.0 [facility] Work Phone: CBCon 01-01-2022 Erythrocyte distribution width (RBC) [Ratio] 14.1 % Normal 11.5 - 14.5 [facility] Comment on above: Performed By: #### C BC #### [address] [address] Hematocrit (Bld) [Volume fraction] 39.6 % Low 41.0 - 52.0 [facility] Comment on above: Performed By: #### C BC #### [address] [address] Hemoglobin (Bld) [Mass/Vol] 13.1 g/dL Low 13.5 - 17.5 [facility] Comment on above: Performed By: #### C BC #### [address] [address] MCHC (RBC) [Mass/Vol] 33.1 g/dL Normal 32.0 - 36.0 [facility] Comment on above: Performed By: #### C BC #### [address] [address] MCV (RBC) [Entitic vol] 95 fL Normal 80 - 100 [facility] Comment on above: Performed By: #### C BC #### [address] [address] NUCLEATED RBC 0.0 /100 WBC Normal 0.0 - 0.0 [facility] Comment on above: Performed By: #### C BC #### [address] [address] Platelets (Bld) [#/Vol] 109 10*3/uL Low 150 - 450 [facility] Comment on above: Performed By: #### C BC #### [address] [address] RBC 4.15 x10E12/L Low 4.50 - 5.90 [facility] Comment on above: Performed By: #### C BC #### [address] [address] WBC (Bld) [#/Vol] 6.3 10*3/uL Normal 4.4 - 11.3 [facility] Comment on above: Performed By: #### C BC #### [address] [address] COMPREHENSIVE PANELon 2021 Albumin [Mass/Vol] 3.2 g/dL Low 3.4 - 5.0 [facility] Comment on above: Performed By: #### C MP ####[facility] [place] [address] ALP [Catalytic activity/Vol] 136 U/L Normal 33 - 136 [facility] Comment on above: Performed By: #### C MP ####[address] [place] [address] ALT [Catalytic activity/Vol] 137 U/L High 10 - 52 [facility] Comment on above: Result Comment: Sri ents treated with Sulfasalazine may generate falsely decreased results for ALT. Performed By: #### C MP ####[address] [address] Anion gap [Moles/Vol] 14 mmol/L Normal 10 - 20 [facility] Comment on above: Performed By: #### C MP ####[address] [address] AST [Catalytic activity/Vol] 102 U/L High 9 - 39 [facility] Comment on above: Performed By: #### C MP ####[address] [address] Bilirubin [Mass/Vol] 3.5 mg/dL High 0.0 - 1.2 [facility] Comment on above: Performed By: #### C MP ####[address] [address] Calcium [Mass/Vol] 8.4 mg/dL Low 8.6 - 10.3 [facility] Comment on above: Performed By: #### C MP ####[address] [address] Chloride [Moles/Vol] 103 mmol/L Normal 98 - 107 [facility] Comment on above: Performed By: #### C MP ####[address] [place] [address] Creatinine [Mass/Vol] 0.63 mg/dL Normal 0.50 - 1.30 [facility] Comment on above: Performed By: #### C MP ####[address] [place] [address] eGFR MALE >90 Normal >90 [facility] Comment on above: Result Comment: CALC ULATIONS OF ESTIMATED GFR ARE PERFORMED USING THE 2020 CKD-EPI STUDY REFIT EQUATION WITHOUT THE RACE VARIABLE FOR THE IDMS-TRACEABLE CREATININE METHODS. https://jasn.asnjournals.org/content/early/ASN.1575043 988 Performed By: #### C MP ####[address] [address] Glucose [Mass/Vol] 110 mg/dL High 74 - 99 [facility] Comment on above: Performed By: #### C MP ####[address] [address] HCO3 (Bld) [Moles/Vol] 24 mmol/L Normal 21 - 32 [facility] Comment on above: Performed By: #### C MP ####[address] [address] Potassium [Moles/Vol] 3.7 mmol/L Normal 3.5 - 5.3 [facility] Comment on above: Performed By: #### C MP ####[address] [address] Protein [Mass/Vol] 5.5 g/dL Low 6.4 - 8.2 [facility] Comment on above: Performed By: #### C MP ####[address] [address] Sodium [Moles/Vol] 137 mmol/L Normal 136 - 145 [facility] Comment on above: Performed By: #### C MP ####[address] [address] Urea nitrogen [Mass/Vol] 14 mg/dL Normal 6 - 23 [facility] Comment on above: Performed By: #### C MP ####[address] [address] Daily Progress Note-Gastroen terologyon 01-01-2022 Daily Progress [...] removal. Objective Data: Objective Information: T PRBPMAPSpO2 [id number]/6693% Date/Time01/01 8: 8: 8: 8: 8:00 Range(35.6C [...] laboratory results: Complete Blood Count Trending View Pxwltd44-Emj-7510 08:46:00 31-Dec-2021 06:08:00 White Blood Cell Count6.3 6.0 Nucleated Erythrocyte Count0.0 0.0 Red Blood Cell Count4.15 L 4.06 L HGB13.1 L 13.0 L HCT39.6 L 39.0 L MCV95 96 MCHC33.1 33.3 KMP285 L 138 L RDW-CV14.1 14.3 Comprehensive Metabolic Panel Trending View [id number]-Kmx-4518 08:46:00 31-Dec-2021 06:08:00 Glucose, Qqbmz813 H 112 H NA137 137 K3.7 3.5 CL103 103 Bicarbonate, Serum24 27 Anion Gap, Serum14 11 BUN14 11 CREAT0.63 0.79 GFR Male>90 >90 Calcium, Serum8.4 L 8.3 L ALB3.2 L 3.2 L BFON327 118 T Pro5.5 L 5.3 L T Bili3.5 H 7.3 H Alanine Aminotransferase, Jmizm064 H 165 H Aspartate Transaminase, Kwwwu337 H 170 H Magnesium, Serum Trending View Wahrig92-Xny-8064 08:46:00 31-Dec-2021 06:08:00 Magnesium, Serum1.90 1.80 Urinalysis 30-Dec-2021 17:21:00 ResultValue Color, Urine JAVY Reference Range: STRAW,YELLOW Appearance, Urine CLEAR Specific [place], Urine 1.044 H pH, Urine 5.0 Protein, [...] over the past day. [facility] and was transferred for further management. Imaging [...] 14:55) Authored: (more content not included)... Normal [facility] Daily Progress Note-General Internal Medicineon 01-01-2022 Daily [...] today Objective Data: Objective Information: T PRBPMAPSpO2 [id number]/6693% Date/Time01/01 8: 8: 8: 8: 8:00 Range(35.6C [...] CODE STATUS: FULL Electronic Signatures: Geovanna Kahn ([employer] SUPERVISOR-TECHNICAL MAINTENANCE SPECIALIST) (Signed 01-Jan-2022 17:38) Authored: Service, Subjective Data, Objective Data, Assessment and Plan, Note Completion Last Updated: 01-Jan-2022 17:38 by Geovanna Kahn ([employer] SUPERVISOR-TECHNICAL MAINTENANCE SPECIALIST) [facility] Discharge Planning Dcau8bz 1 03-03-2021 Discharge Planning Note2 Discharge Planning: Anticipated Discharge [id number] Discharge Planning 01/01/2022 Richi Hu is a 66 year old male who was admitted to [facility] with abdominal Pain. Chart reviewed, report writer spoke with patient- introduced self and explained [...] discharge. JOHANNA Roque Assessment: Discharge Planning Assessment [id number]-7726 Primary Contact Name and NumberHoma [phone](1) Lives Withspouse(1) Living Arrangementshouse(1) Stated Reason for Admissiontransferred for stomach pain(1) [place] Resource/Environmental Concernsnone(1) [place] Services [facility]ated at [facility](1) Discharge Documentation: Discharge/Transfer Date/Lwdy42-Ili-2401 Discharged Accompanied Byfamily member Transportation Methodprivate car Discharge Modewheelchair Code StatusCode Status order at time of discharge: Full Code Discharge Order Writtenyes [place] DNR Form Sent with Patient and/or Familyn/a Final Disposition.Home Electronic Signatures: Cyndi Nava (GRACE) (Signed 01-Jan-2022 12:28) Authored: Discharge Planning, Assessment Seb Raza (STAFF N) (Signed 03-Jan-2022 18:56) Authored: Discharge Planning, Discharge Documentation Last Updated: 03-Jan-2022 18:56 by Seb Raza (STAFF N) References: 1. Data Referenced From Patient Profile - Adult v2 30-Dec-2021 11:15 Normal [facility] Discharge Xisusos7fw 022 Discharge Profile2 Discharge Orders: Anticipated Discharge Date: Anticipated Discharge [id number]-Zxy-1606 DNAR: Code Status at Discharge: Full Code [...] Xarelto Diastolic CHF, HLD/ HTN transferred from [place] ED with chief complaint of abdominal pain. [...] Review of Medication Reconciliation and Orders Completedby LOGGING CREW SUPERVISOR Reviewing ProviderMAGDI Griffiths at 03-Jan-2022 13:14:54 Appointments: Follow-Up Appointment 01: Physician/Dept/ServiceDrSon Abad Reason for ReferralGI- Repeat ERCP in 3 months for stent removal. Phone [phone] Commentsplease call to schedule Follow-Up Appointment 02: Physician/Dept/ServiceDr. [place] Reason for ReferralSurgery Call to Schedule in10-14 days Phone [phone] Commentsplease call to schedule Follow-Up Appointment 03: Physician/Dept/Servicepcarmando Reason for Referralhospital follow up with primary care doctor Call to Schedule in1 week Commentsplease call to schedule Electronic Signatures: Geovanna Kahn ([employer] SUPERVISOR-TECHNICAL MAINTENANCE SPECIALIST) (Signed 03-Jan-2022 13:14) Authored: Discharge Orders, Hospital Course (Home Care/Gold Form), Provider FINAL REVIEW of Orders, Appointments, Gold Form - Collection Clerk Summary Last Updated: 03-Jan-2022 13:14 by Geovanna Kahn (LO[employer]ING [employer] SUPERVISOR-TECHNICAL MAINTENANCE SPECIALIST) Normal [facility] HEPATIC FUNCTION PANELon Albumin [Mass/Vol] 3.4 g/dL Normal 3.4 - 5.0 [facility] Comment on above: Performed By: #### M G #### [facility] [address] [place] [address] ALP [Catalytic activity/Vol] 160 U/L High 33 - 136 [facility] Comment on above: Performed By: #### M G #### [address] [address] ALT [Catalytic activity/Vol] 155 U/L High 10 - 52 [facility] Comment on above: Result Comment: Sri ents treated with Sulfasalazine may generate falsely decreased results for ALT. Performed By: #### M G #### [address] [address] AST [Catalytic activity/Vol] 132 U/L High 9 - 39 [facility] Comment on above: Result Comment: MILD HEMOLYSIS DETECTED. The result may be falsely elevated due to hemolysis or other interferents. Clinical correlation is recommended. Repeat testing may be considered. Performed By: #### M G #### [address] [address] Bilirubin [Mass/Vol] 2.9 mg/dL High 0.0 - 1.2 [facility] Comment on above: Performed By: #### M G #### [address] [address] Bilirubin.indirect [Mass/Vol] 1.2 mg/dL High 0.0 - 0.3 [facility] Comment on above: Result Comment: MILD HEMOLYSIS DETECTED. The result may be falsely decreased due to hemolysis or other interferents. Clinical correlation is recommended. Repeat testing may be considered. Performed By: #### M G #### [address] [address] Protein [Mass/Vol] 6.3 g/dL Low 6.4 - 8.2 [facility] Comment on above: Performed By: #### M G #### [address] [address] Hepatic Function Panelon Albumin BCP dye [Mass/Vol] 3.4 g/dL 3.4 - 5.0 [facility] Work Phone: ALP [Catalytic activity/Vol] 160 U/L above high threshold 33 - 136 [facility] Work Phone: ALT With P-5'-P [Catalytic activity/Vol] 155 U/L above high threshold 10 - 52 [facility] Work Phone: Comment on above: Patients treated wit h Sulfasalazine may generate falsely decreased results for ALT. AST With P-5'-P [Catalytic activity/Vol] 132 U/L above high threshold 9 - 39 [facility] [employer] Work Phone: Comment on above: MILD HEMOLYSIS DETEC L[place]. The result may be falsely elevated due tohemolysis or other interferents. Clinical correlation is recommended.Repeat testing may be considered. Bilirubin [Mass/Vol] 2.9 mg/dL above high threshold 0.0 - 1.2 [facility] [employer] Work Phone: Bilirubin.direct [Mass/Vol] 1.2 mg/dL above high threshold 0.0 - 0.3 [facility] [employer] Work Phone: Comment on above: MILD HEMOLYSIS DETEC L[place]HELL. The result may be falsely decreased due tohemolysis or other interferents. Clinical correlation is recommended.Repeat testing may be considered. Protein [Mass/Vol] 6.3 g/dL below low threshold 6.4 - 8.2 [facility] [employer] Work Phone: Laboratory - Chemistry and C hemistry - challengeon 01-01-2022 Albumin BCP dye [Mass/Vol] 3.2 g/dL below low threshold 3.4 - 5.0 [facility] [employer] Work Phone: ALP [Catalytic activity/Vol] 136 U/L 33 - 136 [facility] [employer] Work Phone: ALT With P-5'-P [Catalytic activity/Vol] 137 U/L above high threshold 10 - 52 [facility] Work Phone: Comment on above: Patients treated wit h Sulfasalazine may generate falsely decreased results for ALT. Anion gap [Moles/Vol] 14 mmol/L 10 - 20 [facility] [employer] Work Phone: AST With P-5'-P [Catalytic activity/Vol] [...] mmol/L 98 - 107 [facility] Work Phone: CO2 [Moles/Vol] 24 mmol/L 21 - 32 -[facility] Work Phone: Creatinine [Mass/Vol] 0.63 mg/dL See Below -[facility] Work Phone: Comment on above: Reference [...] width (RBC) [Ratio] 14.1 % See Below [facility] Work Phone: Comment on above: Reference Range: 11. 5 - 14.5 Hematocrit (Bld) [Volume fraction] 39.6 % below low threshold See Below [facility] Work Phone: Comment on above: Reference Range: 41. 0 - 52.0 Hemoglobin (Bld) [Mass/Vol] 13.1 g/dL below low threshold See Below [facility] Work Phone: Comment on above: Reference Range: 13. 5 - 17.5 MCHC (RBC) [Mass/Vol] 33.1 g/dL See Below [facility] Work Phone: Comment on above: Reference Range: 32. 0 - 36.0 MCV (RBC) [Entitic vol] 95 fL 80 - 100 [facility] Work Phone: Platelets (Bld) [#/Vol] 109 10*3/uL below low threshold 150 - 450 [facility] Work Phone: RBC (Bld) [#/Vol] 4.15 {x10E12/L} below low threshold See Below [facility] Work Phone: Comment on above: Reference Range: 4.5 0 - 5.90 WBC (Bld) [#/Vol] 6.3 10*3/uL 4.4 - 11.3 [facility] Work Phone: MAGNESIUMon 01-01-2022 Magnesium [Mass/Vol] 1.90 mg/dL Normal 1.60 - 2.40 [facility] Comment on above: Performed By: #### M G #### [facility] [address] [place] [address] Magnesium, Serumon 2 Magnesium [Mass/Vol] 1.90 mg/dL See Below [facility] Work Phone: Comment on above: Reference Range: 1.6 0 - 2.40 No Panel Informationon 01-01 >90 >90 [facility] Work Phone: Comment on above: CALCULATIONS OF SHARON MATED GFR ARE PERFORMED USING THE 2020 CKD-EPI STUDY REFIT EQUATION WITHOUT THE RACE VARIABLE FOR THE IDMS-TRACEABLE CREATININE METHODS.https://jasn.asnjournals.org/content/early/ASN .4348074497 0.0 {/100_WBC} 0.0 - 0.0 [facility] Work Phone: Operative Reports - [place] on 01-01-2022 Operative Reports - [place] SURGEON: Jerrell Washington MD POSTOPERATIVE DIAGNOSES: 1. [...] 66-year-old male patient who was transferred to [facility] from [facility]. The patient presented at [place] complaining of epigastric right upper quadrant pain radiating to his back. The patient was also markedly jaundiced at that time. The patient was transferred to [facility]. I was not told about the patient's [...] Jerrell Washington MD EST EST DICTATION NUMBER: [id number] INTERNAL JOB NUMBER: [id number] CC: PCP UNKNOWN Jerrell Washington MD Electronic Signatures: Jerrell Washington) (Signed on 14-Jan-2022 11:26) Authored Unsigned, Draft (SYS GENERATED) (Entered on 14-Jan-2022 04:43) Entered Last Updated: 14-Jan-2022 11:26 by Jerrell Washington) [facility] Order Reconciliationon 01-01 Order Reconciliation Page 1 [...] 10 mg (more content not included)... 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 Electronically Signed Out By ÁNGEL RODRIGUEZ MD/WSM By the signature on this report, the individual or group listed as making the Final Interpretation/Diagnosis certifies that they have reviewed this case. Diagnostic interpretation performed at [facility] [address] [facility] [address] Clinical History: Clinical Diagnosis History: history of [...] disruption, the cystic duct is not identified. Ladle Operator sections are submitted in one cassette. IAD iad/01/09/2022 [facility] Department of Pathology [address] [place] [address] Normal [facility] Comment on above: Performed By: #### U HCS #### [facility] Surgical Pathology Department [address] [facility] [address] CBCon 12-31-2021 Erythrocyte distribution width (RBC) [Ratio] 14.3 % Normal 11.5 - 14.5 [facility] Comment on above: Performed By: #### C BC #### [address] [address] Hematocrit (Bld) [Volume fraction] 39.0 % Low 41.0 - 52.0 [facility] Comment on above: Performed By: #### C BC #### [address] [address] Hemoglobin (Bld) [Mass/Vol] 13.0 g/dL Low 13.5 - 17.5 [facility] Comment on above: Performed By: #### C BC #### [address] [address] MCHC (RBC) [Mass/Vol] 33.3 g/dL Normal 32.0 - 36.0 [facility] Comment on above: Performed By: #### C BC #### [address] [address] MCV (RBC) [Entitic vol] 96 fL Normal 80 - 100 [facility] Comment on above: Performed By: #### C BC #### [address] [address] NUCLEATED RBC 0.0 /100 WBC Normal 0.0 - 0.0 [facility] Comment on above: Performed By: #### C BC #### [address] [address] Platelets (Bld) [#/Vol] 138 10*3/uL Low 150 - 450 [facility] Comment on above: Performed By: #### C BC #### [address] [address] RBC 4.06 x10E12/L Low 4.50 - 5.90 [facility] Comment on above: Performed By: #### C BC #### [address] [address] WBC (Bld) [#/Vol] 6.0 10*3/uL Normal 4.4 - 11.3 [facility] Comment on above: Performed By: #### C BC #### [address] [address] COMPREHENSIVE PANELon 2021 Albumin [Mass/Vol] 3.2 g/dL Low 3.4 - 5.0 [facility] Comment on above: Performed By: #### C MP ####[address] [address] ALP [Catalytic activity/Vol] 118 U/L Normal 33 - 136 [facility] Comment on above: Performed By: #### C MP ####[address] [address] ALT [Catalytic activity/Vol] 165 U/L High 10 - 52 [facility] Comment on above: Result Comment: Sri ents treated with Sulfasalazine may generate falsely decreased results for ALT. Performed By: #### C MP ####[address] [address] Anion gap [Moles/Vol] 11 mmol/L Normal 10 - 20 [facility] Comment on above: Performed By: #### C MP ####[address] [address] AST [Catalytic activity/Vol] 170 U/L High 9 - 39 [facility] Comment on above: Performed By: #### C MP ####[address] [address] Bilirubin [Mass/Vol] 7.3 mg/dL High 0.0 - 1.2 [facility] Comment on above: Performed By: #### C MP ####[address] [address] Calcium [Mass/Vol] 8.3 mg/dL Low 8.6 - 10.3 [facility] Comment on above: Performed By: #### C MP ####[address] [place] [address] Chloride [Moles/Vol] 103 mmol/L Normal 98 - 107 [facility] Comment on above: Performed By: #### C MP ####[address] [place] [address] Creatinine [Mass/Vol] 0.79 mg/dL Normal 0.50 - 1.30 [facility] Comment on above: Performed By: #### C MP ####[address] [place] [address] eGFR MALE >90 Normal >90 [facility] Comment on above: Result Comment: CALC ULATIONS OF ESTIMATED GFR ARE PERFORMED USING THE 2020 CKD-EPI STUDY REFIT EQUATION WITHOUT THE RACE VARIABLE FOR THE IDMS-TRACEABLE CREATININE METHODS. https://jasn.asnjournals.org/content//ASN.9589602 988 Performed By: #### C MP ####[address] [place] [address] Glucose [Mass/Vol] 112 mg/dL High 74 - 99 [facility] Comment on above: Performed By: #### C MP ####[address] [place] [address] HCO3 (Bld) [Moles/Vol] 27 mmol/L Normal 21 - 32 [facility] Comment on above: Performed By: #### C MP ####[address] [place] [address] Potassium [Moles/Vol] 3.5 mmol/L Normal 3.5 - 5.3 [facility] Comment on above: Performed By: #### C MP ####[address] [place] [address] Protein [Mass/Vol] 5.3 g/dL Low 6.4 - 8.2 [facility] Comment on above: Performed By: #### C MP ####[address] [place] [address] Sodium [Moles/Vol] 137 mmol/L Normal 136 - 145 [facility] Comment on above: Performed By: #### C MP ####[facility] [place] [address] Urea nitrogen [Mass/Vol] 11 mg/dL Normal 6 - 23 [facility] Comment on above: Performed By: #### C MP ####[facility] [place] [address] Daily Progress Note-Gastroen terologyon 12-31-2021 Daily Progress Note-Gastroenterolog y Service: Gastroenterology Subjective Data: RICHI HU is a 66 year old Male who is Hospital Day # 2. Patient lying in bed with continued abdominal discomfort, though fairly well controlled with analgesics. Nausea improved. Bilirubin up trended to 7.3. Jaundice noticed. Plan for ERCP today with Dr. Abad. Objective Data: Objective Information: T PRBPMAPSpO2 [id number]% Date/Time12/31 12: 12: 12: 12: 10: 12:00 [...] laboratory results: Complete Blood Count Trending View [id number] 06:08:00 30-Dec-2021 12:06:00 White Blood Cell Count6.0 9.3 Nucleated Erythrocyte Count0.0 0.0 Red Blood Cell Count4.06 L 4.31 L HGB13.0 L 13.9 HCT39.0 L 41.3 MCV96 96 MCHC33.3 33.7 CRL556 L 140 L RDW-CV14.3 13.9 Comprehensive Metabolic Panel Trending View [id number] 06:08:00 30-Dec-2021 12:06:00 Glucose, Ittpf033 H 126 H NA137 137 K3.5 3.7 CL103 100 Bicarbonate, Serum27 29 Anion Gap, Serum11 12 BUN11 11 CREAT0.79 0.75 GFR Male>90 >90 Calcium, Serum8.3 L 8.5 L ALB3.2 L 3.6 DPRR681 109 T Pro5.3 L 5.8 L T Bili7.3 H 5.1 H Alanine Aminotransferase, Nxzej099 H 140 H Aspartate Transaminase, Wjyno511 H 190 H Magnesium, Serum Trending View [id number] 06:08:00 30-Dec-2021 12:06:00 Magnesium, Serum1.80 1.90 Urinalysis 30-Dec-2021 17:21:00 ResultValue Color, Urine JAVY Reference Range: STRAW,YELLOW Appearance, Urine CLEAR Specific [place], Urine 1.044 H pH, Urine 5.0 Protein, [...] thickening. Cho (more content not included)... Normal [facility] Daily Progress Note-General Internal Medicineon 12-31-2021 Daily [...] vomiting. Objective Data: Objective Information: T PRBPMAPSpO2 [id number]% Date/Time12/31 8: 8: 8: 8: 10: 8:00 [...] CODE STATUS: FULL Electronic Signatures: Geovanna Kahn (LOGGING CREW SUPERVISOR-TECHNICAL MAINTENANCE SPECIALIST) (Signed 31-Dec-2021 11:17) Authored: Service, Subjective Data, Objective Data, Assessment and Plan, (more content not included)... Normal [facility] ERCPon 12-31-2021 ERCP PATIENTNAME Patient Name: Richi Hu EXAMDATE Procedure Date: 12/31/2021 2:17 PM PATIENTID PATIENTACCOUNTNUM PATIENTDOB Date of : 1955 ADMITTYPE Admit Type: Inpatient PATIENTROOM Site: [facility] Endo 1 ETHNICITY Ethnicity: Unknown RACE Race: Unknown PROVDR Attending MD: Argelia Abad MD, [id number] ENDOPROCEDURENAME Procedure: ERCP INDICATION Indications: Common bile duct stone(s), Abdominal pain of suspected biliary origin, Abnormal abdominal CT, Biliary dilation on Ultrasound, Suspected ascending cholangitis, Jaundice, Elevated liver enzymes PTPROFILE Patient Profile: This is a 66 year old male. Refer to note in patient chart for documentation of history and physical. PRIMARYPROVIDER Providers: Argelia Abad MD (Doctor), Collin Vazquez RN (Nurse), Adi Friedman, Shellacker EDREFPROVIDER Referring: CURRENT_MEDS Medicines: General Anesthesia COMPLIC [...] tolerated the procedure well. FINDING Findings: The marketing finance specialist film was normal. A standard esophagogastroduodenoscopy scope [...] - Retu (more content not included)... Normal [facility] Laboratory - Chemistry and C hemistry - challengeon 12-31-2021 Albumin BCP dye [Mass/Vol] 3.2 g/dL below low threshold 3.4 - 5.0 [facility] [employer] Work Phone: ALP [Catalytic activity/Vol] 118 U/L 33 - 136 [facility] [employer] Work Phone: ALT With P-5'-P [Catalytic activity/Vol] 165 U/L above high threshold 10 - 52 [facility] [employer] Work Phone: Comment on above: Patients treated wit h Sulfasalazine may generate falsely decreased results for ALT. Anion gap [Moles/Vol] 11 mmol/L 10 - 20 [facility] [employer] Work Phone: AST With P-5'-P [Catalytic activity/Vol] 170 U/L above high threshold 9 - 39 [facility] [employer] Work Phone: Bilirubin [Mass/Vol] 7.3 mg/dL above high threshold 0.0 - 1.2 [facility] [employer] Work Phone: Calcium [Mass/Vol] 8.3 mg/dL below low threshold 8.6 - 10.3 [facility] [employer] Work Phone: Chloride [Moles/Vol] 103 mmol/L 98 - 107 -[facility] [employer] Work Phone: CO2 [Moles/Vol] 27 mmol/L 21 - 32 [facility] [employer] Work Phone: Creatinine [Mass/Vol] 0.79 mg/dL See Below [facility] [employer] Work Phone: Comment on above: Reference Range: 0.5 0 - 1.30 Glucose [Mass/Vol] 112 mg/dL above high threshold 74 - 99 [facility] [employer] Work Phone: Potassium [Moles/Vol] 3.5 mmol/L 3.5 - 5.3 [facility] [employer] Work Phone: Protein [Mass/Vol] 5.3 g/dL below low threshold 6.4 - 8.2 [facility] [employer] Work Phone: Sodium [Moles/Vol] 137 mmol/L 136 - 145 [facility] [employer] Work Phone: Urea nitrogen [Mass/Vol] 11 mg/dL 6 - 23 [facility] Work Phone: Laboratory - Hematology and Cell countson 12-31-2021 Erythrocyte distribution width (RBC) [Ratio] 14.3 % See Below [facility] Work Phone: Comment on above: Reference Range: 11. 5 - 14.5 Hematocrit (Bld) [Volume fraction] 39.0 % below low threshold See Below [facility] Work Phone: Comment on above: Reference Range: 41. 0 - 52.0 Hemoglobin (Bld) [Mass/Vol] 13.0 g/dL below low threshold See Below [facility] [employer] Work Phone: Comment on above: Reference Range: 13. 5 - 17.5 MCHC (RBC) [Mass/Vol] 33.3 g/dL See Below [facility] Work Phone: Comment on above: Reference Range: 32. 0 - 36.0 MCV (RBC) [Entitic vol] 96 fL 80 - 100 [facility] Work Phone: Platelets (Bld) [#/Vol] 138 10*3/uL below low threshold 150 - 450 [facility] Work Phone: RBC (Bld) [#/Vol] 4.06 {x10E12/L} below low threshold See Below [facility] Work Phone: Comment on above: Reference Range: 4.5 0 - 5.90 WBC (Bld) [#/Vol] 6.0 10*3/uL 4.4 - 11.3 [facility] [employer] Work Phone: MAGNESIUMon 12-31-2021 Magnesium [Mass/Vol] 1.80 mg/dL Normal 1.60 - 2.40 [facility] Comment on above: Performed By: #### M G #### [facility] [address] [place] [address] Magnesium, Serumon Magnesium [Mass/Vol] 1.80 mg/dL See Below [facility] [employer] Work Phone: Comment on above: Reference Range: 1.6 0 - 2.40 No Panel Informationon 12-31 [facility] Work Phone: [email or web address]?={[email or web address] [id number] } [facility] [employer] Work Phone: >90 >90 [facility] Work Phone: Comment on above: CALCULATIONS OF SHARON MATED GFR ARE PERFORMED USING THE 2020 CKD-EPI STUDY REFIT EQUATION WITHOUT THE RACE VARIABLE FOR THE IDMS-TRACEABLE CREATININE METHODS.https://jasn.asnjournals.org/content/early/ASN .5183575242 0.0 {/100_WBC} 0.0 - 0.0 [facility] Work Phone: Radiologyon 12-31-2021 Fluoroscopy duration Please click on the link to view the study images Normal [facility] Work Phone: [facility] Surgical Pathology Depar tmenton 12-31-2021 [facility] Surgical Pathology Department Name RICHI HU Pathologist: ANGY AMARO MD Date of Procedure: 12/31/2021 Date Received: 12/31/2021 Date Reported 01/02/2022 Submitting Physician: ARGELIA ABAD MD Location: [address] Copy To/Referring/Attending: ADOLFO ENRIQUEZ, DO Other [...] reviewed this case. Diagnostic interpretation performed at [address] [place] [address] Clinical History: CBD obstruction, elevated LFT's, gastric [...] is submitted in toto in one cassette. [facility]/01/01/2022 [facility] Department of Pathology [address] [place] [address] Normal [facility] Comment on above: Performed By: #### [facility] #### [facility] Surgical Pathology Department [address] [place] [address] Absolute lymphocyte counton 12-30-2021 Lymphocytes Auto (Unsp spec) [#/Vol] 1.58 10*3/uL 0.83-4.51 [facility] Work Phone: Admission Risk Screen - Adul [...] AlertFor Ebola-like Symptoms: Isolate Patient and Notify Provider/Family Readiness Support Assistant For Contact: Notify Provider/Family Readiness Support Assistant Advance Directive: Advance Directive/DNRno Advance Directive Information [...] written material; video Cultural Considerationsnone Developmental Considerationsnone Mandaeism Considerationsnone Learning Assessment (Other Learner): Other learner availableno Depression Screen: During the past month, have you often been bothered by feeling down, depressed or hopelessno During the past month, have you often had little interest or pleasure in doing thingsno Have you had any thoughts of harming anyone elseno Mustang Suicide: Risk Screen Not Applicable/Able to Answerable to be screened In the Past Month: Have you wished you were or could go to sleep and not wake upno In the Past Month: Have you had any actual thoughts of killing yourselfno Lifetime: Have you ever done, started to do, or prepared to do anything to end your lifeno Mustang Suicide Risknegative Adult Nutrition Screen: Have you [...] Spiritual Screen: Are there any cultural, spiritual, orthodox practices/values/needs that are important for us to knowno CAGE: Is this an injured patient at a Tra[place] Center [place] [place]/[place]): no Vaccinations: Vaccination - Influenza Vaccination Screen: Is it flu season (between and May 30)Yes Screening for identified contraindications to influenza vaccinationpatient already received vaccine this season Vaccination - Pneumonia Vaccination Screen: Patient has received a previous pneumonia vaccine:no/unknown... Immunocompetent persons with underlying chronic conditions or reside in shelter [place] (more content not included)... Normal [facility] BILIRUBIN,DIRECTon 2 Bilirubin.indirect [Mass/Vol] 2.7 mg/dL High 0.0 - 0.3 [facility] Comment on above: Performed By: #### M G #### [facility] [address] [place] [address] Basophil percentageon 2021 Lactate [Moles/Vol] 2.2 mmol/L 0.4-2.0 [place] [facility] Work Phone: Comment on above: Critical Result(s) C issa at: 06:06:39 12/30/2021 by: Veronika hansen [facility]. Results read back by same. Basophil percentage 0-5 SEEN /hpf 0-5 [facility] Work Phone: Basophils/100 WBC (Bld) 0.6 % 0-1 [facility] Work Phone: Bilirubin [Mass/Vol] 2.70 mg/dL 0.20-1.00 [facility] Work Phone: Comment on above: For patients on eltr ombopag therapy, use of Dimension [place] TBIL is not recommended. Chloride [Moles/Vol] 104 mmol/L 98-107 [facility] Work Phone: [phone] Eosinophils/100 WBC (Bld) 1.8 % 0-5 [facility] Work Phone: [phone] Glucose [Mass/Vol] 156 mg/dL 74-106 [facility] Work Phone: Comment on above: Fasting Glucose resu lt greater than or equal to 126 mg/dL suggests DIABETES MELLITUS per A.D.A. criteria. Neutrophils (Bld) [#/Vol] 5.4 10*3/uL 2.0-7.7 [facility] Work Phone: Neutrophils/100 WBC (Bld) 68.5 % 47-70 [facility] Work Phone: Potassium [Moles/Vol] 3.7 mmol/L 3.5-5.1 [facility] Work Phone: Protein [Mass/Vol] 6.8 g/dL 6.4-8.2 [facility] Work Phone: Sodium [Moles/Vol] 139 mmol/L 136-145 [facility] Work Phone: WBC (Bld) [#/Vol] 7.9 10*3/uL 4.4-11.0 [facility] Work Phone: Bilirubin Test strip Ql (U)o n 12-30-2021 Bilirubin Ql (U) Negative Negative [facility] Work Phone: Bilirubin, Serum Direct - Co njugatedon 10-31-2022 Bilirubin.direct [Mass/Vol] 2.7 mg/dL above high threshold 0.0 - 0.3 [facility] marc [facility] Work Phone: Blood erythrocytes count (nu mber/volume)on 12-30-2021 RBC (Bld) [#/Vol] 4.59 10*6/uL 4.6-6.2 [facility] Work Phone: Blood hemoglobin measurement (mass/volume)on 12-30-2021 Hemoglobin (Bld) [Mass/Vol] 14.8 g/dL 13.0-16.5 [facility] Work Phone: Blood lymphocytes/100 leukoc yteson 12-30-2021 Lymphocytes/100 WBC (Bld) 20.1 % 19-41 [facility] Work Phone: Blood monocytes/100 leukocyt eson 12-30-2021 Monocytes/100 WBC (Bld) 8.6 % 0-10 [facility] Work Phone: Blood platelet mean volumeon 12-30-2021 Platelet mean volume (Bld) [Entitic vol] 9.6 fL 6.2-12.0 [facility] Work Phone: CBCon 12-30-2021 Erythrocyte distribution width (RBC) [Ratio] 13.9 % Normal 11.5 - 14.5 [facility] Comment on above: Performed By: #### M G #### [address] [address] Hematocrit (Bld) [Volume fraction] 41.3 % Normal 41.0 - 52.0 [facility] Comment on above: Performed By: #### M G #### [address] [address] Hemoglobin (Bld) [Mass/Vol] 13.9 g/dL Normal 13.5 - 17.5 [facility] Comment on above: Performed By: #### M G #### [address] [address] MCHC (RBC) [Mass/Vol] 33.7 g/dL Normal 32.0 - 36.0 [facility] Comment on above: Performed By: #### M G #### [address] [address] MCV (RBC) [Entitic vol] 96 fL Normal 80 - 100 [facility] Comment on above: Performed By: #### M G #### [address] [address] NUCLEATED RBC 0.0 /100 WBC Normal 0.0 - 0.0 [facility] Comment on above: Performed By: #### M G #### [address] [address] Platelets (Bld) [#/Vol] 140 10*3/uL Low 150 - 450 [facility] Comment on above: Performed By: #### M G #### [address] [address] RBC 4.31 x10E12/L Low 4.50 - 5.90 [facility] Comment on above: Performed By: #### M G #### [address] [address] WBC (Bld) [#/Vol] 9.3 10*3/uL Normal 4.4 - 11.3 [facility] Comment on above: Performed By: #### M G #### [address] [address] COMPREHENSIVE PANELon 2021 Albumin [Mass/Vol] 3.6 g/dL Normal 3.4 - 5.0 [facility] Comment on above: Performed By: #### M G #### [address] [address] ALP [Catalytic activity/Vol] 109 U/L Normal 33 - 136 [facility] Comment on above: Performed By: #### M G #### [address] [address] ALT [Catalytic activity/Vol] 140 U/L High 10 - 52 [facility] Comment on above: Result Comment: Sri ents treated with Sulfasalazine may generate falsely decreased results for ALT. Performed By: #### M G #### [address] [place] [address] Anion gap [Moles/Vol] 12 mmol/L Normal 10 - 20 [facility] Comment on above: Performed By: #### M G #### [address] [place] [address] AST [Catalytic activity/Vol] 190 U/L High 9 - 39 [facility] Comment on above: Performed By: #### M G #### [address] [place] [address] Bilirubin [Mass/Vol] 5.1 mg/dL High 0.0 - 1.2 [facility] Comment on above: Performed By: #### M G #### [address] [place] [address] Calcium [Mass/Vol] 8.5 mg/dL Low 8.6 - 10.3 [facility] Comment on above: Performed By: #### M G #### [address] [place] [address] Chloride [Moles/Vol] 100 mmol/L Normal 98 - 107 [facility] [facility] [place] Comment on above: Performed By: #### M G #### [address] [place] [address] Creatinine [Mass/Vol] 0.75 mg/dL Normal 0.50 - 1.30 [facility] [place] Comment on above: Performed By: #### M G #### [address] [place] [address] eGFR MALE >90 Normal >90 [facility] [place] Comment on above: Result Comment: CALC ULATIONS OF ESTIMATED GFR ARE PERFORMED USING THE 2020 CKD-EPI STUDY REFIT EQUATION WITHOUT THE RACE VARIABLE FOR THE IDMS-TRACEABLE CREATININE METHODS. https://jasn.asnjournals.org/content//ASN.2454822 988 Performed By: #### M G #### [address] [place] [address] Glucose [Mass/Vol] 126 mg/dL High 74 - 99 [facility] Comment on above: Performed By: #### M G #### [address] [address] HCO3 (Bld) [Moles/Vol] 29 mmol/L Normal 21 - 32 [facility] [place] Comment on above: Performed By: #### M G #### [address] [address] Potassium [Moles/Vol] 3.7 mmol/L Normal 3.5 - 5.3 [facility] [place] Comment on above: Performed By: #### M G #### [address] [address] Protein [Mass/Vol] 5.8 g/dL Low 6.4 - 8.2 [facility] Comment on above: Performed By: #### M G #### [address] [address] Sodium [Moles/Vol] 137 mmol/L Normal 136 - 145 [facility] Comment on above: Performed By: #### M G #### [address] [address] Urea nitrogen [Mass/Vol] 11 mg/dL Normal 6 - 23 [facility] [place] Comment on above: Performed By: #### M G #### [address] [address] Clinical Intervention - Ora barrera 12-30-2021 Clinical Intervention - Pharmacy Pharmacist's Clinical Intervention: Is this intervention medication reconciliation related: yes, HISTORY Electronic Signatures: Jayla Baig ([employer]) (Signed 30-Dec-2021 12:22) Authored: Pharmacist's Clinical Intervention Last Updated: 30-Dec-2021 12:22 by Jayla Baig ([facility] [employer] [facility] Consult-Gastroenterologyon 1 Consult-Gastroentero logy Service: Service: Gastroenterology [...] No previous similar episodes. He presented to [facility] and was transferred for further management. Imaging there consistent with cholelithiasis without cholecystitis. No leukocytosis, liver enzymes noted T bili 2.7, ALT 71/AST 95, ALP 123. He has never had EGD. Most recent colonoscopy 2 years ago at [facility] with polyp removed. His last dose of [...] Itching, Hives/Urticaria Objective: Objective Information: T PRBPMAPSpO2 [id number]% Date/Time12/30 10: 10: 10: 10: 10: 10:45 [...] Count 4.3 (more content not included)... Normal [facility] [place] Consult-Gastroentero logy This report has been cancelled. Normal [facility] [place] [facility] Determination of erythrocyte mean corpuscular volume (MCV)on 12-30-2021 MCV (RBC) [Entitic vol] 93.5 fL 80-94 [facility] Work Phone: EMR ADDONon 12-30-2021 ADDON CONFIRMATION REQUEST REC'D Normal [facility] [place] [facility] Comment on above: Performed By: #### E MRAD #### [facility] [address] [place] [address] Hematocrit Auto (Bld) [Volum e fraction]on 12-30-2021 Hematocrit (Bld) [Volume fraction] 42.9 % 40-54 [facility] Work Phone: Ketones Test strip Ql (U)on 12-30-2021 Ketones Ql (U) Negative Negative [facility] Work Phone: Laboratory - Chemistry and C hemistry - challengeon 12-30-2021 Albumin BCP dye [Mass/Vol] 3.6 g/dL 3.4 - 5.0 [facility] [employer] Work Phone: ALP [Catalytic activity/Vol] 109 U/L 33 - 136 [facility] Work Phone: ALT With P-5'-P [Catalytic activity/Vol] 140 U/L above high threshold 10 - 52 [facility] Work Phone: Comment on above: Patients treated wit h Sulfasalazine may generate falsely decreased results for ALT. Anion gap [Moles/Vol] 12 mmol/L 10 - 20 [facility] Work Phone: AST With P-5'-P [Catalytic activity/Vol] 190 U/L above high threshold 9 - 39 [facility] [employer] Work Phone: Bilirubin [Mass/Vol] 5.1 mg/dL above high threshold 0.0 - 1.2 [facility] [employer] Work Phone: Calcium [Mass/Vol] 8.5 mg/dL below low threshold 8.6 - 10.3 [facility] [employer] Work Phone: Chloride [Moles/Vol] 100 mmol/L 98 - 107 [facility] [employer] Work Phone: CO2 [Moles/Vol] 29 mmol/L 21 - 32 [facility] Work Phone: Creatinine [Mass/Vol] 0.75 mg/dL See Below [facility] Work Phone: Comment on above: Reference Range: 0.5 0 - 1.30 Glucose [Mass/Vol] 126 mg/dL above high threshold 74 - 99 [facility] [employer] Work Phone: Potassium [Moles/Vol] 3.7 mmol/L 3.5 - 5.3 [facility] Work Phone: Protein [Mass/Vol] 5.8 g/dL below low threshold 6.4 - 8.2 [facility] Work Phone: Sodium [Moles/Vol] 137 mmol/L 136 - 145 [facility] Work Phone: Urea nitrogen [Mass/Vol] 11 mg/dL 6 - 23 [facility] Work Phone: ALP [Catalytic activity/Vol] 123 U/L 45-117 [facility] Work Phone: ALT [Catalytic activity/Vol] 71 U/L 16-61 [facility] Work Phone: CO2 [Moles/Vol] 26.0 mmol/L 21.0-32.0 [facility] Work Phone: Globulin (S) [Mass/Vol] 3.3 g/dL 2.2-4.2 [facility] Work Phone: Urea nitrogen/Creatinine [Mass ratio] 13.9 mg/mg 10-20 [facility] Work Phone: Laboratory - Hematology and Cell countson 12-30-2021 Erythrocyte distribution width (RBC) [Ratio] 13.9 % See Below [facility] Work Phone: Comment on above: Reference Range: 11. 5 - 14.5 Hematocrit (Bld) [Volume fraction] 41.3 % See Below [facility] Work Phone: Comment on above: Reference Range: 41. 0 - 52.0 Hemoglobin (Bld) [Mass/Vol] 13.9 g/dL See Below [facility] Work Phone: Comment on above: Reference Range: 13. 5 - 17.5 MCHC (RBC) [Mass/Vol] 33.7 g/dL See Below [facility] Work Phone: Comment on above: Reference Range: 32. 0 - 36.0 MCV (RBC) [Entitic vol] 96 fL 80 - 100 [facility] Work Phone: Platelets (Bld) [#/Vol] 140 10*3/uL below low threshold 150 - 450 [facility] Work Phone: RBC (Bld) [#/Vol] 4.31 {x10E12/L} below low threshold See Below [facility] Work Phone: Comment on above: Reference Range: 4.5 0 - 5.90 WBC (Bld) [#/Vol] 9.3 10*3/uL 4.4 - 11.3 -[facility] Work Phone: Erythrocyte distribution width (RBC) [Entitic vol] 46.8 fL 35.1-43.9 [facility] Work Phone: Erythrocyte distribution width (RBC) [Ratio] 13.7 % 11.6-14.6 [facility] Work Phone: Immature granulocytes/100 WBC (Bld) 0.400 % 0.0-0.9 [facility] Work Phone: Comment on above: IG% - Immature Granu locytes (promyelocytes, myelocytes and metamyelocytes) > 1% indicates that a LEFT SHIFT is Present. MCH (RBC) [Entitic mass] 32.2 pg 27.0-32.0 [facility] Work Phone: Nucleated RBC/100 WBC (Bld) [Ratio] 0 % 0-5 [facility] Work Phone: MAGNESIUMon 12-30-2021 Magnesium [Mass/Vol] 1.90 mg/dL Normal 1.60 - 2.40 [facility] [place] Comment on above: Performed By: #### M G #### [facility] [address] [address] [place] [address] MCHC Auto (RBC) [Mass/Vol]on 12-30-2021 MCHC (RBC) [Mass/Vol] 34.5 g/dL 32-36 [facility] Work Phone: Magnesium, Serumon 2 Magnesium [Mass/Vol] 1.90 mg/dL See Below [facility] Work Phone: Comment on above: Reference Range: 1.6 0 - 2.40 Mucus LM Ql (Urine sed)on Mucus Ql (Urine sed) 0 SEEN /hpf [facility] Work Phone: Nitrite Test strip Ql (U)on 12-30-2021 Nitrite Ql (U) Negative Negative [facility] Work Phone: No Panel Informationon 12-30 >90 >90 [facility] Work Phone: Comment on above: CALCULATIONS OF SHARON MATED GFR ARE PERFORMED USING THE 2020 CKD-EPI STUDY REFIT EQUATION WITHOUT THE RACE VARIABLE FOR THE IDMS-TRACEABLE CREATININE METHODS.https://jasn.asnjournals.org/content//ASN .7254358918 0.0 {/100_WBC} 0.0 - 0.0 [employer] [facility] Work Phone: Estimated Creatinine Clearance Calc 119.05 ml/min [facility] Work Phone: Estimated GFR (MDRD) Amer 127 mL/min >60 [facility] Work Phone: Comment on above: GFR Calc Estimated GFR (MDRD) Non-Af Amer 105 mL/min >60 [facility] Work Phone: Comment on above: Non- GFR Calc Order Reconciliationon 12-30 Order Reconciliation Page 1 Admission Reconciliation Document Reconciliation Type: Admission requested on behalf of Geovanna Kahn (Advanced Practice Nurse-Admit) done by Geovanna Kahn (LOGGING [employer]W SUPERVISOR-[facility]) Admission - Reconciliation: 30-Dec-2021 11:40 by: Geovanna Kahn (LOGGING [employer] SUPERVISOR-TECHNICAL MAINTENANCE SPECIALIST) Home MedicationsEnteredLast Dose TakenReconciled with current Order Reconciliation Comment/ Additional Information furosemide 40 mg oral tablet 1 tab(s) orally once a [id number] PM Furosemide Tablet (LASIX)DOSE = 40 mg Oral Dailyfurosemide 40 mg oral tablet is continued and suspended as Furosemide lisinopril 20 mg oral tablet 1 tab(s) orally once a [id number] AM Lisinopril Tablet (PRINIVIL, ZESTRIL)DOSE = 20 mg Oral Dailylisinopril 20 mg oral tablet continued as the inpatient order Lisinopril sotalol 120 mg oral tablet 1 tab(s) orally 2 times a [id number] AM Sotalol Tablet (BETAPACE)DOSE = 120 mg [...] orally once a day (in the evening) [id number] PM Bleeding, Monitor for Xarelto 20 mg [...] Every 8 Hours and as Needed Normal [facility] [place] [facility] Patient Profile - Adult v2on 12-30-2021 Patient Profile - Adult v2 Profile: Initial Info: How to be AddressedRichi Mckeon Spoken Language PreferredEnglish Source of Informationpatient Stated Reason for Admissiontransferred for stomach pain Primary Contact Name and NumberHoma, Other Contact Names and NumbersMary, Wants Family/Rep Notified of Admissionyes, primary contact Notify PCPnotify PCP Informed of Patient Visiting Rightsyes Limitations on Visitors/Phone Callsnone [place] Was Admitted To in Past 90 Daysnone Employment Statusemployed Current or Previous Servicenone Patient Belongingsremains with patient Patient Belongings Remaining with Patientmedical device; vision aids; cell phone/electronics; clothing Medications Brought to Hospitalno History of MDROno General Health: Weight in kg216.3 kilogram(s)(1) Weight in iik059.8 pound(s) Weight Methodactual (measured) (1) Scale Typebed [...] Lives Withspouse Living Arrangementshouse Services [facility] Anticipated Transition [place] Significant IndicatorsComplete Information Review: Allergies, Home Meds [...] From 1. Vital Signs 30-Dec-2021 10:45 Normal [facility] Platelets bldon 12-30-2021 Platelets (Bld) [#/Vol] 193 10*3/uL 150-450 [facility] Work Phone: Protein Test strip Ql (U)on 12-30-2021 Protein Ql (U) Negative Negative [facility] Work Phone: Serum or plasma albumin emre urement (mass/volume)on 12-30-2021 Albumin [Mass/Vol] 3.5 g/dL 3.2-5.0 [facility] Work Phone: Serum or plasma albumin/glob ulin mass ratioon 12-30-2021 Albumin/Globulin [Mass ratio] 1.1 {ratio} 0.9-2.4 [facility] Work Phone: Serum or plasma calcium emre urement (mass/volume)on 12-30-2021 Calcium [Mass/Vol] 9.1 mg/dL 8.5-10.1 [facility] Work Phone: Serum or plasma creatinine m easurement (mass/volume)on 12-30-2021 Creatinine [Mass/Vol] 0.79 mg/dL 0.70-1.30 [facility] Work Phone: Comment on above: The validity of the calculated GFR & GFRAA in patients over 70 years has not been determined. Clinical correlation is essential. Serum or plasma urea nitroge n measurement (mass/volume)on 12-30-2021 Urea nitrogen [Mass/Vol] 11 mg/dL 7-18 [facility] Work Phone: Squamous epithelial cells de tection in urine sediment by light microscopyon 12-30-2021 Epithelial cells.squamous LM Ql (Urine sed) 0 SEEN /hpf 0-5 [facility] Work Phone: Thin prep Papanicolaou smear with manual screeningon 12-30-2021 Thin prep Papanicolaou smear with manual screening 95 U/L 15-37 [facility] Work Phone: Thin prep Papanicolaou smear with manual screening 9 5-15 [facility] Work Phone: URINALYSISon 12-30-2021 Appearance (U) CLEAR Normal CLEAR [facility] [place] Comment on above: Performed By: #### M G #### [facility] [address] [place] [address] Bilirubin Ql (U) SMALL(1+) Abnormal NEGATIVE [facility] [place] [facility] Comment on above: Performed By: #### M G #### [address] [place] [address] Color (U) JAVY Normal STRAW,YELL OW [facility] [place] [facility] Comment on above: Performed By: #### M G #### [address] [place] [address] Glucose Ql (U) Negative Normal NEGATIVE [facility] [place] [facility] Comment on above: Performed By: #### M G #### [address] [place] [address] Hemoglobin Ql (U) Negative Normal NEGATIVE [facility] Comment on above: Performed By: #### M G #### [address] [address] Ketones Ql (U) Negative Normal NEGATIVE [facility] [place] [facility] Comment on above: Performed By: #### M G #### [address] [place] [address] Leukocyte esterase Test strip Ql (U) Negative Normal NEGATIVE [facility] [place] Comment on above: Performed By: #### M G #### [address] [address] Nitrite Ql (U) Negative Normal NEGATIVE [facility] [place] Comment on above: Performed By: #### M G #### [address] [place] [address] pH (U) 5.0 [pH] Normal 5.0 - 8.0 [facility] [place] [facility] Comment on above: Performed By: #### M G #### [address] [place] [address] Protein Ql (U) Negative Normal NEGATIVE [facility] [place] Comment on above: Performed By: #### M G #### [address] [place] [address] Specific gravity (U) [Rel density] 1.044 High 1.005 - 1.035 [facility] [place] Comment on above: Performed By: #### M G #### [address] [place] [address] Urobilinogen (U) [Mass/Vol] 4.0 mg/dL High 0.0 - 1.9 [facility] [place] [facility] Comment on above: Result Comment: SOME PIGMENTS AND MEDICATIONS MAY CAUSE A FALSE POSITIVE UROBILINOGEN Performed By: #### M G #### [facility] [address] [place] [address] US RIGHT UPPER QUADRANTon US RIGHT UPPER QUADRANT Patient Name: RICHI HU STUDY: US RUQ ABDOMEN; 12/30/2021 2:30 pm INDICATION: RUQ abd pain, . COMPARISON: None. ACCESSION NUMBER(S): [id number] ORDERING CLINICIAN: GEOVANNA ALEGRE TECHNIQUE: Multiple images [...] Electronically signed by: SANFORD MEDINA MD Normal [facility] Ultrasound Right Upper Quadr elder 12-30-2021 Ultrasound Right Upper Quadrant Normal [facility] [employer] Work Phone: Urinalysison 12-30-2021 Color (U) JAVY See Below [employer] [facility] [employer] Work Phone: Comment on above: Reference Range: STR AW,YELLOW Glucose Ql (U) Negative NEGATIVE [facility] [employer] Work Phone: Ketones Ql (U) Negative NEGATIVE [facility] [employer] Work Phone: Leukocyte esterase Test strip Ql (U) Negative NEGATIVE -[facility] Work Phone: pH (U) 5.0 [pH] 5.0 - 8.0 [facility] [place] [place] Work Phone: Protein (U) [Mass/Vol] Negative NEGATIVE -[facility] Work Phone: RBC (U) [#/Vol] Negative NEGATIVE -[facility] Work Phone: Specific gravity (U) [Rel density] 1.044 1 above high threshold See Below -[facility] [place] [place] Work Phone: Comment on above: Reference Range: 1.0 05 - 1.035 Urinalysis Negative NEGATIVE -[facility] Work Phone: Urinalysis 4.0 mg/dL above high threshold 0.0 - 1.9 -[facility] Work Phone: Comment on above: SOME PIGMENTS AND ME DICATIONS MAY CAUSE AFALSE POSITIVE UROBILINOGEN Urinalysis SMALL(1+) Abnormal NEGATIVE -[facility] Work Phone: Urinalysis CLEAR CLEAR -[facility] [place] Work Phone: Urine blood detectionon 12-02 RBC Ql (U) Negative Negative [facility] Work Phone: RBC Ql (U) 0 SEEN /hpf 0-5 [facility] Work Phone: Urine clarityon 12-30-2021 Clarity (U) Clear Clear [facility] Work Phone: Urine color determinationon 10-31-2022 Color (U) Yellow Yellow [facility] Work Phone: Urine glucose detectionon Glucose Ql (U) Normal mg/dl Normal [facility] Work Phone: Urine leukocyte esterase det ection by dipstickon 12-30-2021 Leukocyte esterase Test strip Ql (U) 25 /ul Negative [facility] Work Phone: Urine pHon 12-30-2021 pH (U) 7.0 [pH] 5.0 - 8.0 [facility] Work Phone: Urine sediment bacteria coun t by microscopy (number/high power field)on 12-30-2021 Bacteria LM.HPF (Urine sed) [#/Area] RARE /hpf None Seen [facility] Work Phone: Urine specific gravity measu rementon 12-30-2021 Specific gravity (U) [Rel density] 1.010 1.002-1.03 0 [facility] Work Phone: Urobilinogen Auto test strip Ql (U)on 12-30-2021 Urobilinogen Ql (U) 4 mg/dl Normal [facility] Work Phone: CNPNon 06-18-2020 [employer] Telephone ([facility]) RICHI HU ([id number]) 1955 M Date Time Provider Department 06/18/20 LEONOR VELEZ [facility] During your visit today, we recorded the following information about you: Katlin Sequeira 06/18/2020 10:04 AM Signed Received request for medical records from [facility], Dr. Soham Lamb [address] [place], [place] [address] Ph.: [phone] Sent request to medical records. Sending copy of request to patients chart. Katlin Sequeira [facility] Allergies As of Date: 06/18/2020 Noted Allergy [...] Status:Closed by KATLIN SEQUEIRA on 06/18/20 Normal [facility] RF-Lumbar Spine 2 or 3 Views IMPORTon 05-08-2020 RF-Lumbar Spine 2 or 3 Views IMPORT Images were obtained outside of [facility] [id number] Normal [facility] MR-Spine Lumbar W/WO Contras t IMPORTon 05-07-2020 MR-Spine Lumbar W/WO Contrast IMPORT Images were obtained outside of [facility] [id number] Normal [facility] Final Surgical Pathology Rep [facility] 05-01-2020 Final Surgical Pathology Report . Pathology Reports Accession: Collected Date/Time: Received Date/Time: Pathologist: [id number] 04/27/2020 10:45 EST 04/30/2020 08:18 MD ADOLFO MIRANDA Final Surgical Pathology Report DIAGNOSIS: A) SIGMOID COLON, POLYPECTOMY -- TUBULAR ADENOMA. B) SPLENIC FLEXURE OF COLON, POLYPECTOMY -- TUBULAR ADENOMA. COMMENT: [facility] - D# [id number] CLINICAL INFORMATION: Procedure: COLONOSCOPY WITH POLYPECTOMY Preoperative [...] Electronically Signed by Pathology Report verified by [facility] Electronically signed by ADOLFO NIETO MD Sign out Date: 05/01/2020 16:22 Performing Lab: [facility], [address] [place] [id number] [place] [address] ([place]) Comment on above: Performed By: #### S PFR #### [place] [id number] COVID-19 virus antigen assay SARS-CoV-2 (COVID-19) Ag IA.rapid Ql (Resp) [facility] Work Phone: Vital Signs Date Time Vital Sign Value Performing Clinician Facility 07-19-2024 07:07-0400 Body height 190.[address] Tiarra Bravo MD Work Phone: [facility] 07-19-2024 07:07-0400 Body mass index (BMI) [Ratio] 56.2 kg/m2 Dr. Tiarra Bravo MD Work Phone: [facility] 07-19-2024 07:07-0400 Body weight 204.[address] Tiarra Bravo MD Work Phone: [facility] 07-19-2024 07:07-0400 Diastolic blood pressure 83 mm[Hg] Dr. Tiarra Bravo MD Work Phone: [facility] 07-19-2024 07:07-0400 Heart rate 72 /min Dr. Tiarra Bravo MD Work Phone: [facility] 07-19-2024 07:07-0400 Respiratory rate 22 /min Dr. Tiarra Bravo MD Work Phone: [facility] 07-19-2024 07:07-0400 SaO2% (BldA) [Mass fraction] 96 % Dr. Tiarra Bravo MD Work Phone: [facility] 07-19-2024 07:07-0400 Systolic blood pressure 127 mm[Hg] Dr. Tiarra Bravo MD Work Phone: [facility] 02-09-2023 08:40-0500 Body temperature 97.3 [degF] Dr. Tiarra Bravo Work Phone: [facility] 02-09-2023 08:40-0500 Diastolic blood pressure 79 mm[Hg] Dr. Tiarra Bravo Work Phone: [facility] 02-09-2023 08:40-0500 Heart rate 77 /min Dr. Tiarra Bravo Work Phone: [facility] 02-09-2023 08:40-0500 Respiratory rate 16 /min Dr. Tiarra Bravo Work Phone: [facility] 02-09-2023 08:40-0500 SaO2% (BldA) [Mass fraction] 96 % Dr. Tiarra Bravo Work Phone: [facility] 02-09-2023 08:40-0500 Systolic blood pressure 128 mm[Hg] Dr. Tiarra Bravo Work Phone: [facility] 01-06-2023 14:53-0500 Body height 195.[address] Tiarra Bravo Work Phone: [facility] 01-06-2023 14:53-0500 Body mass index (BMI) [Ratio] 53.1 kg/m2 Dr. Tiarra Bravo Work Phone: [facility] 01-06-2023 14:53-0500 Body weight 203.[address] Tiarra Bravo Work Phone: [facility] 01-06-2023 14:53-0500 Diastolic blood pressure 73 mm[Hg] Dr. Tiarra Bravo Work Phone: [facility] 01-06-2023 14:53-0500 Heart rate 58 /min Dr. Tiarra Bravo Work Phone: [facility] 01-06-2023 14:53-0500 Respiratory rate 22 /min Dr. Tiarra Bravo Work Phone: [facility] 01-06-2023 14:53-0500 SaO2% (BldA) [Mass fraction] 99 % Dr. Tiarra Bravo Work Phone: [facility] 01-06-2023 14:53-0500 Systolic blood pressure 153 mm[Hg] Dr. Tiarra Bravo Work Phone: [facility] 01-14-2022 10:50-0500 Body height 195.[address] Tiarra Bravo Work Phone: [facility] Work Phone: 01-14-2022 10:50-0500 Body mass index (BMI) [Ratio] 53.8 kg/m2 Dr. Tiarra Bravo Work Phone: [facility] Work Phone: 01-14-2022 10:50-0500 Body weight 205.[address] Tiarra Bravo Work Phone: [facility] Work Phone: 01-14-2022 10:50-0500 Diastolic blood pressure 77 mm[Hg] Dr. Tiarra Bravo Work Phone: [facility] Work Phone: 01-14-2022 10:50-0500 Heart rate 64 /min Dr. Tiarra Bravo Work Phone: [facility] Work Phone: 01-14-2022 10:50-0500 Respiratory rate 18 /min Dr. Tiarra Bravo Work Phone: [facility] Work Phone: 01-14-2022 10:50-0500 SaO2% (BldA) [Mass fraction] 96 % Dr. Tiarra Bravo Work Phone: [facility] Work Phone: 01-14-2022 10:50-0500 Systolic blood pressure 130 mm[Hg] Dr. Tiarra Bravo Work Phone: [facility] Work Phone: 01-10-2022 11:15-0500 Body height 193.04 cm Referring Provider [facility] Work Phone: 01-10-2022 11:15-0500 Body mass index (BMI) [Ratio] 26.29 kg/m2 Referring Provider [facility] Work Phone: 01-10-2022 11:15-0500 Body surface area Derived from formula 2.29 m2 Referring Provider [facility] Work Phone: 01-10-2022 11:15-0500 Body weight 97.98 kg Referring Provider [facility] Work Phone: 12-30-2021 08:00-0400 Diastolic blood pressure 79 mm[Hg] [facility] Work Phone: 12-30-2021 08:00-0400 Heart rate 63 /min [facility] Work Phone: 12-30-2021 08:00-0400 Respiratory rate 16 /min [facility] Work Phone: 12-30-2021 08:00-0400 SaO2% (BldA) [Mass fraction] 96 % [facility] Work Phone: 12-30-2021 08:00-0400 Systolic blood pressure 138 mm[Hg] [facility] Work Phone: 12-30-2021 07:01-0400 Body temperature 97.4 [degF] [facility] Work Phone: 12-30-2021 00:04-0400 Body height 195.58 cm [facility] Work Phone: 12-30-2021 00:04-0400 Body mass index (BMI) [Ratio] 65.7 kg/m2 [facility] Work Phone: 12-30-2021 00:04-0400 Body weight 251.7 kg [facility] Work Phone: Encounters Encounter Date Encounter Type Care Provider Facility Start: 08-25-2024 ambulatory Taylor Griffin ty:[facility] Start: 07-19-2024 End: 07-19-2024 Patient encounter procedure Taylor Patel L[facility]TER-[facility] [facility] Work Phone: Start: 07-19-2024 End: 07-19-[address] Tiarra Bravo MD Work Phone: [facility] Work Phone: Start: 04-12-2024 End: 04-12-[address] Demetria Varela MD -Laboratory Work Phone: Start: 04-12-2024 End: 04-12-2024 ambulatory Tiarra S Jolliff Facility:[facility] Start: 02-22-2024 End: 02-22-2024 ambulatory Tiarra S Jolliff Facility[facility] Start: 02-15-2024 ambulatory Terell Silviano [facility] Start: 02-15-2024 End: 02-15-2024 ambulatory Terell Silviano Facility:[facility] Start: 02-08-2024 End: 02-08-2024 ambulatory Tiarra S Jolliff Facility:[facility] Start: 01-25-2024 End: 01-25-2024 ambulatory Susie MUSA Facility:[facility] Start: 12-31-2023 End: 12-31-2023 ambulatory Tiarra S Jolliff Facility:[facility] Start: 12-14-2023 End: 12-14-2023 ambulatory Tiarra S Shelly Facility:[facility] Start: 04-01-2023 End: 04-01-[address] Tiarra Brvao Work Phone: [facility] Work Phone: Start: 04-01-2023 End: 04-01-[address] Tiarra Bravo Work Phone: [facility] Work Phone: Start: 02-13-2023 End: 02-13-[address] Tiarra Bravo Work Phone: [facility] Work Phone: Start: 02-13-2023 End: 02-13-[address] Tiarra Bravo Work Phone: [facility] Work Phone: Start: 02-09-2023 End: 02-09-[address] Tiarra Bravo Work Phone: [facility] Work Phone: Start: 02-04-2023 Non-patient / Non-visit Dr. Debra Bravo Work Phone: [facility] Start: 02-04-2023 End: 02-04-[address] Tiarra Bravo Work Phone: [facility] Work Phone: Start: 02-04-2023 End: 02-04-[address] [facility]: Start: 01-20-2023 Non-patient / Non-visit Dr. Debra Bravo Work Phone: [facility] Work Phone: Start: 01-20-2023 End: 01-20-[address] Tiarra Bravo Work Phone: [facility] Work Phone: Start: 01-20-2023 End: 01-20-[address] Tiarra Bravo Work Phone: [facility] Work Phone: Start: 01-15-2023 End: 01-15-[address] Tiarra Bravo Work Phone: [facility] Work Phone: Start: 01-15-2023 End: 01-15-[address] [facility] Start: 01-06-2023 End: 01-06-[address] Tiarra Bravo Work Phone: [facility] Work Phone: Start: 01-06-2023 End: 01-06-[address] Tiarra Bravo Work Phone: [facility] Work Phone: Start: 12-08-2022 End: 12-08-2022 ambulatory [facility] Work Phone: Start: 12-08-2022 End: 12-08-2022 Patient encounter procedure [facility] Start: 06-19-2022 End: 06-19-2022 ambulatory [facility] Work Phone: Start: 06-19-2022 End: 06-19-2022 Patient encounter procedure [facility] Start: 04-13-2022 Message Tiarra Bravo Work Phone: [facility] Work Phone: Start: 04-02-2022 End: 04-02-[address] Tiarra Bravo Facility:[id number] Start: 02-10-2022 End: 02-10-[address] Tiarra Bravo Work Phone: [facility] Work Phone: Start: 02-10-2022 End: 02-10-[address] Tiarra Bravo Work Phone: [facility] Start: 01-14-2022 End: 01-14-[address] Tiarra Bravo Work Phone: [facility] Start: 01-10-2022 AUDIT Referring [facility] Work Phone: Start: 01-04-2022 Message Referring Prov ider Unknown [facility] Work Phone: Start: 12-30-2021 End: 01-03-2022 Evaluation and management of inpatient PCP UNKNOWN Facility:[id number] Start: 12-30-2021 End: 12-30-2021 Emergency department patient visit [facility] Start: 10-15-2021 ambulatory EMMANUEL COREA Facility: [facility] Procedures Date Procedure Procedure Detail [...] Activity Detail Author Start: 07-19-2024 Patient referral [facility] Work Phone: Start: 07-19-2024 Evaluation of diagnostic study results 12 Lead EKG performed by [facility] Start: 04-01-2023 Procedure [facility] Start: 06-19-2022 Procedure [facility] Start: 04-02-2022 ERCPANS, Provider: Argelia Abad, Status: Pen, Time: 7:30 AM ERCPANS, Provider: Argelia Abad, Status: Pen, Time: 7:30 AM [facility] Work Phone: 24 Hour ECG [facility] Patient referral [facility] Work Phone: [facility] Immunizations Immunization Date Immunization Notes Care Provider Semaj esposito 01-01-2020 Influenza virus vaccine [facility] 01-09-2014 Influenza virus vaccine [facility] Payers Date Payer Category Payer Unknown [id number] 2024 Unknown [id number] 2023 Self-pay [id number] 2015 Unknown [id number] 2015 Unknown [id number] 1957 Unknown [id number] 2.16. [id number] 1957 Unknown [id number] 2.16. [id number] 1957 Unknown [id number] 2.16.8 [id number] 1957 Unknown [id number] 2.16.8 [id number] Unknown ANTHEM Unknown [id number] 2.16.8 [id number] Unknown [id number] 2.16.8 [id number] Unknown [id number] 2.16.8 [id number] Unknown [id number] 2.16.8 [id number] Unknown [id number] 2.16.8 [id number] Unknown [id number] 2.16.8 [id number] Unknown [id number] 2.16.8 [id number] Unknown [id number] 2.16.8 [id number] Unknown [id number] 2.16.8 [id number] Unknown [id number] 2.16.8 [id number] Unknown [id number] 2.16.8 [id number] Social History Date Type Detail Facility Start: 12-30-2021 End: 02-09-2023 Tobacco smoking status NHIS Unknown if ever smoked [facility] Start: 05-06-2020 None [facility] Start: 05-06-2020 Spouse/ Signif icant Other [facility] Start: 07-23-2020 Non-smoker [facility] Start: 1955 Sex Assigned At Male W [facility] Start: 02-15-2024 Tobacco smoking status NHIS Never smoked tobacco (finding) [facility] Clinical Notes 05-17-2020 to 01-03-2022 Note Date [...] of : 1955 Admit Type: Inpatient Site: [facility] Endo 1 Ethnicity: Unknown Race: Unknown Attending MD: Argelia Abad MD, [id number] Dec 31, 2021 Condition at Discharge: Satisfactory Disposition at Discharge: Home Vital Signs: T PRBPMAPSpO2 Value35.34842088/800485% Date/Time01/03 12: 12: 12: 12: 12: 12:00 Range(35.8C - 37.5C ) (56 - 74 ) (17 - 22 ) (109 - 124 )/ (51 - 66 ) (78 - 81 ) (93% - 98% ) As of 03-Jan-2022 09:00:00, patient is on 0 L/min of oxygen via CPAP. Highest temp of 37.5 C was recorded at 01/03 4:00 Date: Weight/Scale Type:Height: 30-Dec-2021 11:86602.3 kg / jwo946.5 cm Physical Exam: Constitutional: Well developed, awake/alert/oriented [...] Xarelto Diastolic CHF, HLD/ HTN transferred from [place] ED with chief complaint of abdominal pain. [...] Reason for Referral: (more content not included)... [facility] 12-30-2021 Note History of Present I llness: Admission Reason: abdominal pain HPI: RICHI HU is a 66 year old Male with a past medical history of afib Xarelto Diastolic CHF, HLD/ HTN transferred from [place] ED with chief complaint of abdominal pain. [...] this patient. Objective: Objective Information: T PRBPMAPSpO2 Value36.97881162/0722156% Date/Time12/30 10: 10: 10: 10: 10: 10:45 [...] HOLD for poss (more content not included)... [facility] 12-25-2020 Evaluation note Diagnosis Onset Date Resolution Atrial fibrillation/flutte r December 25, 2020 chronic July 19, 2024 10:32am Central sleep apnea associated with atrial fibrillation chronic July 19 10:32am Chronic diastolic (congestive) heart failure chronic July 19, 2024 10:32am Essential (primary) hypertension chronic July 19, 2024 10:32am History of radiofrequency ablation procedure for cardiac arrhythmia November 29, 2020 resolved July 19, 2024 10:32am [facility] Work Phone: [phone]) 218-974904-01-2021 NoteHNO ID: [id number] Author: Leonor Velez Service: ? Author Type: Physician Type: Progress Notes Filed: 05/31/2020 8:58 AM Note Text: VIRTUAL VISIT PROGRESS NOTE This is a virtual visit using [employer] video visit. It required patient-provider interaction for [...] to ambulate. He was managed locally in [place] and underwent CONCETTA's which have offered significant [...] visit. I spent more than 20 minutes [id number] with the patient and over half the time was devoted to counseling and/or coordination of care. Leonor Velez, [facility]03-18-2021 NoteHNO ID: [id number] Author: Evelyn Hernandez (Pa) Service: ? Author Type: Physician Motor Vehicle Technician Type: Progress Notes Filed: 05/18/2020 1:54 PM [...] Fusion by Dr. Leonor Velez MD at [facility] CMT: Muscle relaxants Narcotics - Hydrocodone Injections at [facility] Studies (Reports unless indicated) 01/30/2020 - MRI [...] Evelyn Hernandez PA-C May 18, 2020 1:53 [facility]03-18-2021 NoteHNO ID: [id number] Author: Mariel TURNER Service: ? Author Type: ? Type: Progress Notes Filed: 05/18/2020 1:54 PM Note Text: Patient name: Richi Hu Are you being referred by a [facility] Provider or Pain Management Provider at [facility]? No If answer is YES please schedule [...] the facility where the MRI/CT/myelogram was completed: [place] [address] MRI/CT/myelogram viewable in Epic: No If not, please provide [phone] to fax in imaging reports for review. Also, please inform patient to hand carry imaging disc to appointment. XR (spine) within 12 months: Yes If YES,? please ask for the name/address of the facility where the XR was completed: [place] [address] Requested provider (First and Last name): unknown [...] injections and/or physical therapy was completed Injections: [place] [address] Have you tried any other kinds of [...] [address] Leonor Velez [place] [address] Additional Comments : [phone] [facility] noteNo assessment information availableW[facility] Work Phone: Evaluation note* Diagnosis Onset Date Resolution Status Essential (primary) hypertension chronic Paroxysmal atrial fibrillation [facility] Work Phone: Evaluation note* Diagnosis Onset Date Resolution Status Dyspnea acute Chronic diastolic (congestive) heart failure chronic Essential (primary) hypertension chronic Paroxysmal atrial fibrillation [facility] Work Phone: Evaluation note* Diagnosis Onset Date Resolution Status Dyspnea acute Chronic diastolic (congestive) heart failure chronic Essential (primary) hypertension chronic Paroxysmal atrial fibrillation chronic Impacted cerumen of both ears acute [facility] Work Phone: Hospital Discharge instructionsAmbulatory Orders* Electrophysiology Location: None [facility] Work Phone: Summary Purpose Family History No Family History Records Found Relationship Condition Age at Onset Recorded Date/T lalo father Malignant neoplasm Unknown Advance Directives No Advanced Directives Records Found Advance Directive Response Recorded Date/ Time Advance Directives No December 25, 2020 10:23am Living Will No December 30 12:09am Power of Amusement Or Recreation Card Checker No December 30, 2021 12:09am Advance Directive Response Recorded Date/ Time Advance Directives No December 25, 2020 9:23am Living Will No December 29 11:09pm Power of Amusement Or Recreation Card Checker No December 29, 2021 11:09pm Advance Directive [...] section and content) DATE CREATED AUTHOR 05/08/2020 [facility] ([place] DATE CREATED AUTHOR AUTHOR'S ORGANIZ ATION 04/04/2021 [facility] DATE CREATED AUTHOR AUTHOR'S ORGANIZ ATION 04/07/2022 [facility] DATE CREATED AUTHOR AUTHOR'S ORGANIZ ATION 05/28/2022 [facility] DATE CREATED AUTHOR AUTHOR'S ORGANIZ ATION 06/07/2022 [facility] DATE CREATED AUTHOR AUTHOR'S ORGANIZ ATION 07/29/2024 [facility] Goals (unrecognized section and content) Goals may [...] Bravo MD Primary Care Provider Active Dr. Demertia Varela MD Attending Provider, Referring Pr ovider [...] End: July 19, 2024 Taylor Patel NP, LIP CUTTER-C Attending Provider Active Start: July 19, 2024 [...] BE BASED ON THE PRIMARY CLINICAL RECORDS. [facility]. provides no warranty or guarantee of the accuracy or completeness of information in this document.
--- OUTSIDE RECORDS SUMMARY | 2024-08-07 13:15 | XMS RPT_ITS | CCD ---
Author Organization [facility] Care Team Providers Care Plasterer Apprentice Name Role Phone Unknown, Referring Provider Unavailable [...] Jolliff, Tiarra S Primary Care Unavailable Silviano, [place] Referring Unavailable Silviano, [place] Consulting Unavailable Jolliff, Tiarra S Primary Care Unavailable Silviano, Terell Referring Unavailable Bob Gibson Attending Unavailable Jolliff, Tiarra S Referring Unavailable Jorge BEATER HEAD, Taylor Attending Unavailable Colindres, Omid Primary Care Unavailable Jorge BEATER HEAD, Taylor Attending Unavailable Jorge BEATER HEAD, Taylor Referring Unavailable Colindres, Omid Primary Care Unavailable Jolliff, Tiarra S Primary Care Unavailable Jolliff, Tiarra S Attending Unavailable Jolliff, Tiarra S Primary Care Unavailable Basali, Ayman Attending Unavailable Basali, Ayman Referring Unavailable Silviano, Terell Attending Unavailable Jolliff, Tiarra S Primary Care Unavailable Silviano, [place] Referring Unavailable Jolliff, Tiarra S Primary Care [...] sources) Penicillins Allergy to substance 2 Anaphylaxis [facility] (11 sources) Sulfonamides (Antibiotic) Allergy to substance 2 Hives [facility] (2 sources) Penicillins; Translations: [Penicillins] Allergy to drug (finding) [facility] Work Phone: (2 sources) Sulfonamides (Antibiotic); Translations: [Sulfa Drugs] Allergy to drug (finding) [facility] Work Phone: (1 source) Penicillins Drug allergy (disorder) 5 [facility] Repository (1 source) Sulfonamides (Antibiotic) Drug allergy (disorder) 5 [facility] Repository Medications Current Medications Medication [...] orally every evening with food: Fax to [facility]: Start: 06-14-2019 End: 03-23-2024 take 1 [...] 24, 2014 12:00am February 09, 2014 8:01am [id number] actuat albuterol 0.09 mg/actuat metered dose [...] / neomycin 3.5 mg/ml / polymyxin b 29862 unt/ml otic suspension (11 sources) Aminoglycoside Antibacterial, Polymyxin-class Antibacterial, Corticosteroid Start: 12-10-2019 End: 12-20-2019 Tacsaqfc-Srvnawyqv-Pq 3.5-10,000-1 mg/mL-unit/mL-% drops,suspension Discontinued 3 NMA OTIC Q4H 10 December 10, 2019 12:00am December 19, 2019 12:00am December 20, 2019 12:03am apply to (cotton) wick; replace wick every 24 hours Start: 12-10-2019 End: 12-20-2019 Ivkpktip-Gyipiuwec-Bm Discon tinued 3 DRP OTIC Q4H 12 [...] Date Episodic/Chronic Other aftercare (2 sources) Other care home (current) drug therapy; Translations: [Other care home (current) drug therapy] Onset: 11-28-2020 Episodic Other [...] Facility 12 Lead EKG performed by [facility] on 07-19-2024 12 Lead EKG performed by [facility] [address] [place] [address] 12 Lead EKG performed by [facility] 07/19/24 0706 MR#: [id number] Acct: [id number] Name: RICHI HU Rep #: [id number] : 1955 68 From: Taylor Patel NP BEATER HEAD-C Attending Dr: Taylor Patel BEATER HEAD-C Status: DEP A DEEP Ordering Dr: Taylor Patel NP BEATER HEAD-C Date: 07/19/24 Location: [facility] Sex: M C Admitted: BMS/12 Lead EKG performed by [facility] ECG Report Interpretation At rial flutter-fibrillation -Poor R-wave progression -may be secondary to pulmonary disease consider old anterior infarct. - Nonspecific T-abnormality. Low voltage with rightward P-axis and rotation -possible pulmonary disease. ABNORMAL Electronically signed on 07/20/2024 at 09:41 by Terell [employer] Software Version [id number] 07/20/24 0942 Date Taylor GARCIA CC: Dr. Omid Colindres MD Date Dictated: 07/19/24705 Date Transcribed: 07/19/24705 Container Washer: GLYNN Signed Normal [facility] Cardiology Visit Reporton Cardiology Visit Report [facility] 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 Normal [facility] L3410.9998on 04-17-2024 [facility] Misc. Normal [facility] Comment on above: Order Comment: [id number] URIN TOX Result Comment: TEST RESULTS LIMITS Tramadol, Urine Tramadol Positive Eiqpyg=828 Tramadol Conf, MS, UR 205 ng/mL Zmediq=754 Tramadol detected; this finding can be consistent with use of medications that include Ultram, Topalgic, Tradol, Zydol, or generic formulations. Drugs listed are union contract representative of common sources of the compound detected and are not intended to include all possible sources. Please Note: Drug test results should be interpreted in the context of clinical information. Patient metabolic variables, specific drug chemistry, and specimen characteristics can affect test outcome. Technical consultation is available if a test result is inconsistent with an expected outcome. Email: [email or web address] PERFORMED AT [facility]. ORIGINAL REPORT ON FILE IN LAB CONTAINS ADDITIONAL TEST SITE INFORMATION. Performed By: #### L 3410.9998, L505.5000 #### [facility] Laboratory [address] [place], [place] [address], [address] [facility] Normal [facility] Comment on above: Order Comment: [id number] TRAMIADOL Result Comment: [id number] 63 6+OXYCODONE-BUND (ng/mL) DRUG RESULT SCREEN CUTOFF ____ Amphetamines,Urine Negative ng/mL 1000 Amphetamine test includes Amphetamine and Methamphetamine. Barbiturates Negative ng/mL 200 Benzodiazepines Negative ng/mL 200 Cannabinoid Negative ng/mL 20 Cocaine (Metab) Negative ng/mL 300 Opiates Negative ng/mL 300 Opiates test includes Codeine, Morphine, Hydromorphone, Hydrocodone. Oxycodone/Oxymorphone,Urine Negative ng/mL 300 Test includes Oxycodone and Oxymorphone. TESTING PERFORMED AT [facility]. ORIGINAL REPORT ON FILE IN LAB CONTAINS ADDITIONAL TEST SITE INFORMATION. Performed By: #### L 3410.9998 #### [facility] Laboratory [address] [place], [place], [address] No Panel InformationOrdered By: Demetria Varela on 04-12-2024 Urine Drug Screen Comment [facility] Comment on above: CONFIRMATORY TESTING [...] Opiates Ql (U) Negative < 300 ng/mL [facility] Urine Drug Screen (VISTA)on 04-12-2024 VISTA UDS PH 7 Normal [facility] Comment on above: Order Comment: MED T OX Performed By: #### L 3410.9998, L505.5000 #### [facility] [address] [facility] [place], [place], [address] Urine amphetamine measuremen tOrdered By: Demetria Varela on 04-12-2024 Amphetamines Ql (U) Negative <1000 ng/mL [facility] Urine benzodiazepine levelOr dered By: Demetria Varela on 04-12-2024 Benzodiazepines Ql (U) Negative < 200 ng/mL [facility] Urine cocaine levelOrdered B y: Demetria Varela on 04-12-2024 Cocaine Ql (U) Negative < 300 ng/mL [facility] Urine uiyls-7-aobhvpczuuspyx abinol (THC) measurementOrdered By: Demetria Varela on 04-12-2024 Cannabinoids Screen Ql (U) Negative < 50 ng/mL [facility] Urine phencyclidine (PCP) de tectionOrdered By: Demetria Varela on 04-12-2024 Phencyclidine Ql (U) Negative < 25 ng/mL [facility] 12 Lead EKG performed by [facility] on 02-22-2024 12 Lead EKG performed by [facility] [address] [place] [address] 12 Lead EKG performed by [facility] 02/22/24905 MR#: [id number] Acct: [id number] Name: RICHI HU Rep #: [id number] : 1955 68 From: Susie May Attending Dr: DIMPLE Arndt Status: DEP AMB Ordering Dr: Susie Neely Date: 01/31 05/23 Location: [facility] Sex: M C Admitted: [facility]/12 Lead EKG performed by [facility] ECG Report Interpretation Si nus Rhythm -Poor R-wave progression -may be secondary to pulmonary disease consider old anterior infarct. - Nonspecific T-abnormality. Low voltage with rightward P-axis and rotation -possible pulmonary disease. ABNORMAL Electronically signed on 02/25/2024 at 09:47 by Terell Shore Software Version [id number] 02/25/24950 Date Susie MUSA CC: Dr. Tiarra Bravo MD Date Dictated: 02/22/24905 Date Transcribed: 02/22/24905 Container Washer: LIBERTAD Signed Normal [facility] Procedure Reporton Procedure Report [facility] Medical Records Department [address] [place] [address] Procedure Report 02/15/24 1132 MR#: [id number] Acct: [id number] Name: RICHI HU Rep #: [id number] : 1955 68 From: Bob Gibson DO PCP: Dr. Tiarra Bravo MD Status:REG [facility] Location: [facility] Procedures Pulmonary Pulmonary Procedures /Diagnostic Testin Con Sedation Non-invasive Procedural Procedure Information Description of procedure: CONSCIOUS SEDATION REPORT DATE OF SERVICE: February 15, 2024 BRIEF HISTORY OF PRESENT ILLNESS: The patient is a 68-year-old male who presented to [facility] to undergo an elective outpatient [...] MD; Dr. Bob Gibson DO Signed Normal [facility] Procedure Report [facility] Medical Records Department [address] [place] [address] Procedure Report 02/15/24 1121 MR#: [id number] Acct: [id number] Name: RICHI HU Rep #: [id number] : 1955 68 From: Terell Shore MD PCP: Dr. Tiarra Bravo MD Status:[facility] Location: [facility] Problems Associated [...] prompt reversal to sinus rhythm. Procedure findings: Samaritan of sinus rhythm Complications Complications: No 02/15/24 1122 Cosigner Signature (if applicable): CC: Dr. Tiarra Bravo MD; Dr. Terell Shore MD Signed Normal [facility] Basic Metabolic Profile (BMP )on 02-08-2024 BUN/CRE 15.3 RATIO Normal 10-20 [facility] Comment on above: Performed By: #### L 500.2500 ####[facility] [address] [place], [address] CA,Total 8.9 mg/dL Normal 8.5-10.1 [facility] Comment on above: Performed By: #### L 500.2500 ####[facility] [address] [place], [address] Chloride [Moles/Vol] 107 mmol/L Normal 98-107 [facility] Comment on above: Performed By: #### L 500.2500 ####[facility] [address] [place], [address] CO2 [Moles/Vol] 25.0 mmol/L Normal 21.0-32.0 [facility] Comment on above: Performed By: #### L 500.2500 ####[facility] [address] [place], [address] Creatinine [Mass/Vol] 0.78 mg/dL Normal 0.70-1.30 [facility] Comment on above: Result Comment: The validity of the calculated GFR GFRAA in patients over 70 years has not been determined. Clinical correlation is essential. Performed By: #### L 500.2500 ####[facility] [address] [place], [address] EST GFR - AA 127 mL/min Normal >60 [facility] Comment on above: Result Comment: Afri can Nicaraguan GFR Calc Performed By: #### L 500.2500 ####[facility] [address] [place], [address] GAP 6 Normal 5-15 [facility] Comment on above: Performed By: #### L 500.2500 ####[facility] [address] [place], [address] GFR/1.73 sq M.predicted among non-blacks MDRD (S/P/Bld) [Vol rate/Area] 105 mL/min/{1.73_m2} Normal >60 [facility] Comment on above: Result Comment: Non- GFR Calc Performed By: #### L 500.2500 ####[facility] [address] [place], [address] Glucose [Mass/Vol] 91 mg/dL Normal 74-106 [facility] Comment on above: Performed By: #### L 500.2500 ####[facility] [address] [place], [address] Potassium [Moles/Vol] 3.9 mmol/L Normal 3.5-5.1 [facility] Comment on above: Performed By: #### L 500.2500 ####[facility] [address] [place], [address] Sodium [Moles/Vol] 138 mmol/L Normal 136-145 [facility] Comment on above: Performed By: #### L 500.2500 ####[facility] [address] [place], [place], [address] Urea nitrogen [Mass/Vol] 12 mg/dL Normal 7-18 [facility] Comment on above: Performed By: #### L 500.2500 ####[facility] [address] [place], [place], [address] 12 Lead EKG performed by [facility] on 01-25-2024 12 Lead EKG performed by [facility] [address] [place] [address] 12 Lead EKG performed by [facility] 01/25/24 1000 MR#: [id number] Acct: [id number] Name: RICHI HU Rep #: [id number] : 1955 68 From: Susie May Attending Dr: DIMPLE Arndt Status: DEP AMB Ordering Dr: Susie Neely Date: 01/01 07/23 Location: [facility] Sex: M C Admitted: [facility]/12 Lead EKG performed by [facility] ECG Report Interpretation At rial [...] Date Dictated: 01/25/24 1000 Date Transcribed: 01/25/24999 Container Washer: LIBERTAD Signed Normal [facility] Cardiology Visit Reporton Cardiology Visit Report [facility] [address] [place] [address] OFFICE VISIT Date of Service: 01/25/24 MR#: [id number] Acct: [id number] Name: RICHI HU Rep #: [id number] : 1955 Provider: DIMPLE Bojorquez Age/Sex: 68/M Location: [facility] Status: Signed HPI HPI History of [...] Monitor Intake Visit Reasons: 6 M FU Python Architect Required: No Is patient in pain?: No [...] noted. So (more content not included)... Normal [facility] Lumbar Spine 2 or 3 Viewson 12-31-2023 Lumbar Spine 2 or 3 Views [facility] Imaging Services [address] [place] [id number] Lumbar Spine 2 or 3 Views MR#: [id number] Acct: [id number] Name: RICHI HU Rep #: [id number] : 1955 M 68 From: Marcos Busby MD PCP: Dr. Tiarra Bravo MD Status: REG CLI Study: Lumbar Spine 2 or 3 Views Date of Exam: Exam# [id number] Ordering Dr: Demetria Varela MD :[id number] STUDY: X-RAY - LUMBAR SPINE REASON FOR [...] CC: Dr. Tiarra Bravo MD; Dr. Demetria Vareal MD Container Washer: Signed Normal [facility] Basic Metabolic Profile (BMP )on 12-14-2023 BUN/CRE 14.7 RATIO Normal 12-19 [facility] Comment on above: Order Comment: Order Date: 12/14/23 Order Info: 0667-1 - BMP Order Info: [id number] - LIPID Order Info: 3016-3 - TSH Performed By: #### L 501.9520, L500.2500, L501.9985, L500.4100 #### [facility] Laboratory [address] [place], [place], [address] CA,Total 9.5 mg/dL Normal 8.5-10.1 [facility] Comment on above: Order Comment: Order Date: 12/14/23 Order Info: 0667-1 - BMP Order Info: [id number] - LIPID Order Info: 3016-3 - TSH Performed By: #### L 501.9520, L500.2500, L501.9985, L500.4100 #### [facility] [address] [place], [address] Chloride [Moles/Vol] 103 mmol/L Normal 98-107 [facility] Comment on above: Order Comment: Order Date: 12/14/23 Order Info: 666-03 - BMP Order Info: [id number] - LIPID Order Info: 3 - TSH Performed By: #### L 501.9520, L500.2500, L501.9985, L500.4100 #### [facility] [address] [place], [address] CO2 [Moles/Vol] 29.0 mmol/L Normal 21.0-32.0 [facility] Comment on above: Order Comment: Order Date: 12/14/23 Order Info: 666-03 - BMP Order Info: - LIPID Order Info: [id number] - TSH Performed By: #### L 501.9520, L500.2500, L501.9985, L500.4100 #### [facility] [address] [place], [address] Creatinine [Mass/Vol] 0.88 mg/dL Normal 0.70-1.30 [facility] Comment on above: Order Comment: Order Date: 12/14/23 Order Info: 666-03 - BMP Order Info: - LIPID Order Info: 3015-05 - TSH Result Comment: The validity of the calculated GFR GFRAA in patients over 70 years has not been determined. Clinical correlation is essential. Performed By: #### L 501.9520, L500.2500, L501.9985, L500.4100 #### [facility] [address] [place], [address] EST GFR - AA 111 mL/min Normal >60 [facility] Comment on above: Order Comment: Order Date: 12/14/23 Order Info: 666-03 - BMP Order Info: - LIPID Order Info: 3015-05 - TSH Result Comment: Afri can Nicaraguan GFR Calc Performed By: #### L 501.9520, L500.2500, L501.9985, L500.4100 #### [facility] [address] [place], [address] GAP 6 Normal 5-15 [facility] Comment on above: Order Comment: Order Date: 12/14/23 Order Info: 666-03 - BMP Order Info: - LIPID Order Info: 3016-3 - TSH Performed By: #### L 501.9520, L500.2500, L501.9985, L500.4100 #### [facility] [address] [place], [address] GFR/1.73 sq M.predicted among non-blacks MDRD (S/P/Bld) [Vol rate/Area] 92 mL/min/{1.73_m2} Normal >60 [facility] Comment on above: Order Comment: Order Date: 12/14/23 Order Info: 666-03 - BMP Order Info: - LIPID Order Info: 3016-3 - TSH Result Comment: Non- GFR Calc Performed By: #### L 501.9520, L500.2500, L501.9985, L500.4100 #### [facility] [address] [place], [address] Glucose [Mass/Vol] 86 mg/dL Normal 74-106 [facility] Comment on above: Order Comment: Order Date: 12/14/23 Order Info: 666-03 - BMP Order Info: 12612-0 - LIPID Order Info: 3016-3 - TSH Performed By: #### L 501.9520, L500.2500, L501.9985, L500.4100 #### [facility] [address] [place], [address] Potassium [Moles/Vol] 4.3 mmol/L Normal 3.5-5.1 [facility] Comment on above: Order Comment: Order Date: 12/14/23 Order Info: 666-03 - BMP Order Info: - LIPID Order Info: 3016-3 - TSH Performed By: #### L 501.9520, L500.2500, L501.9985, L500.4100 #### [facility] [address] [place], [address] Sodium [Moles/Vol] 138 mmol/L Normal 136-145 [facility] Comment on above: Order Comment: Order Date: 12/14/23 Order Info: 0667-1 - BMP Order Info: [id number] - LIPID Order Info: 3016-3 - TSH Performed By: #### L 501.9520, L500.2500, L501.9985, L500.4100 #### [facility] [address] [place], [address] Urea nitrogen [Mass/Vol] 13 mg/dL Normal 7-18 [facility] Comment on above: Order Comment: Order Date: 12/14/23 Order Info: 0667-1 - BMP Order Info: [id number] - LIPID Order Info: 3016-3 - TSH Performed By: #### L 501.9520, L500.2500, L501.9985, L500.4100 #### [facility] [address] [place], [address] Hemoglobin A1con 12-14-2023 HbA1c (Bld) [Mass fraction] 5.8 % High 3.8-5.6 [facility] Comment on above: Order Comment: Order Date: 12/14/23 Order Info: 4548-4 - A1C Result Comment: Norm al < 5.7 % Prediabetic 5.7 - 6.4 % Diabetic >or= 6.5 % Please note range changes. Performed By: #### L 501.9520, L500.2500, L501.9985, L500.4100 #### [facility] [address] [place], [address] Lipid Profileon 12-14-2023 Cholesterol [Mass/Vol] 134 mg/dL Normal 200 [facility] Comment on above: Order Comment: Order Date: 12/14/23 Order Info: 666-03 - BMP Order Info: - LIPID Order Info: 3 - TSH Result Comment: <200 mg/dL Desirable 200-240 mg/dL Borderline >240 mg/dL High Risk Performed By: #### L 501.9520, L500.2500, L501.9985, L500.4100 #### [facility] [address] [place], [address] Cholesterol in HDL [Mass/Vol] 33 mg/dL Low [facility] Comment on above: Order Comment: Order Date: 12/14/23 Order Info: 666-03 - BMP Order Info: - LIPID Order Info: [id number] - TSH Result Comment: The drugs N-Acetylcysteine and Metamizole may falsely depress this assay. Reference Range HDL <40 mg/dL Low HDL Cholesterol HDL >or= 60 mg/dL High HDL Cholesterol Performed By: #### L 501.9520, L500.2500, L501.9985, L500.4100 #### [facility] [address] [place], [address] Cholesterol in LDL [Mass/Vol] 76 mg/dL Normal 0-130 [facility] Comment on above: Order Comment: Order Date: 12/14/23 Order Info: 666-03 - BMP Order Info: - LIPID Order Info: 3015-05 - TSH Performed By: #### L 501.9520, L500.2500, L501.9985, L500.4100 #### [facility] [address] [place], [address] Cholesterol in VLDL [Mass/Vol] 25 mg/dL Normal 5-40 [facility] Comment on above: Order Comment: Order Date: 12/14/23 Order Info: 666-03 - BMP Order Info: - LIPID Order Info: 3 - TSH Performed By: #### L 501.9520, L500.2500, L501.9985, L500.4100 #### [facility] [address] [place], [address] Triglyceride [Mass/Vol] 123 mg/dL Normal [facility] Comment on above: Order Comment: Order Date: 12/14/23 Order Info: 0667-1 - BMP Order Info: [id number] - LIPID Order Info: 3016-3 - TSH Result Comment: The drugs N-Acetylcysteine and Metamizole may falsely depress this assay. Serum Triglycerides Reference Interval Normal <150 mg/dL Borderline high 150 - 199 mg/dL High 200 - 499 mg/dL Very High > or = 500 mg/dL Performed By: #### L 501.9520, L500.2500, L501.9985, L500.4100 #### [facility] [address] [place], [address] Protein+Creatinine Ratio,Uri neon 12-14-2023 PROT:CRE RATIO 135 mg/g CRE Normal 0-200 [facility] Comment on above: Performed By: #### L 501.0900 #### [facility] [address] [place], [address] Protein (U) [Mass/Vol] 24.8 mg/dL High <11.9 [facility] Comment on above: Performed By: #### L 501.0900 #### [facility] [address] [place], [address] UR CREAT 184.00 mg/dL Normal NO RANGE EST. [facility] Comment on above: Performed By: #### L 501.0900 #### [facility] [address] [place], [address] Thyroid Stim Hormone (TSH)on 12-14-2023 TSH 1.730 uIU/mL Normal 0.358-3.74 0 [facility] Comment on above: Order Comment: Order Date: 12/14/23 Order Info: [id number] - BMP Order Info: [id number] - LIPID Order Info: [id number] - TSH Performed By: #### L 501.9520, L500.2500, L501.9985, L500.4100 #### [facility] [place], [address] Laboratory - Drug toxicology Ordered By: Demetria Varela on 04-01-2023 Amphetamines Ql (U) Negative <1000 ng/mL [facility] Benzodiazepines Ql (U) Negative < 200 ng/mL [facility] Cannabinoids Screen Ql (U) Negative < 50 ng/mL [facility] Cocaine Ql (U) Negative < 300 ng/mL [facility] Opiates Ql (U) Negative < 300 ng/mL [facility] No Panel InformationOrdered By: Demetria Varela on 04-01-2023 MDMA (Ecstasy) Screen Negative < 500 ng/mL [facility] Urine Barbiturates Screen Negative < 200 ng/mL [facility] Urine Drug Screen Comment [facility] Comment on above: CONFIRMATORY TESTING [...] Urine Methadone Screen Negative < 300 ng/mL [facility] Urine phencyclidine (PCP) de tectionOrdered By: Demetria Varela on 04-01-2023 Phencyclidine Ql (U) Negative < 25 ng/mL [facility] Basophil percentageOrdered B y: Tiarra Bravo on 02-13-2023 Chloride [Moles/Vol] 102 mmol/L 98-107 [facility] Cholesterol [Mass/Vol] 144 mg/dL <200 [facility] Comment on above: <200 mg/dL Desirable 200-240 mg/dL Borderline >240 mg/dL High Risk Glucose [Mass/Vol] 109 mg/dL 74-106 [facility] Comment on above: Fasting Glucose resu lt from 100 to 125 mg/dL suggests IMPAIRED HOMEOSTASIS per A.D.A. criteria. Potassium [Moles/Vol] 3.8 mmol/L 3.5-5.1 [facility] Sodium [Moles/Vol] 137 mmol/L 136-145 [facility] Triglyceride [Mass/Vol] 122 mg/dL <199 [facility] Comment on above: The drugs N-Acetylcy steine and Metamizole may falsely depress this assay.Serum Triglycerides Reference Interval Normal <150 mg/dL Borderline high 150 - 199 mg/dL High 200 - 499 mg/dL Very High > or = 500 mg/dL Laboratory - Chemistry and C hemistry - challengeOrdered By: Tiarra Bravo on 02-13-2023 CO2 [Moles/Vol] 32.0 mmol/L 21.0-32.0 [facility] Urea nitrogen/Creatinine [Mass ratio] 18.1 mg/mg 10-20 [facility] No Panel InformationOrdered By: Tiarra Bravo on 02-13-2023 Estimated GFR (MDRD) Amer 120 mL/min >60 [facility] Comment on above: GFR Calc Estimated GFR (MDRD) Non-Af Amer 99 mL/min >60 [facility] Comment on above: Non- GFR Calc Prostate Specific Antigen Screen 0.61 ng/mL 0.00-4.00 [facility] Comment on above: This test was perfor med using the TPSA assay method for the[facility] chemistry system. Values obtained with differentassay [...] Cholesterol in HDL [Mass/Vol] 35 mg/dL >40 [facility] Comment on above: The drugs N-Acetylcy steine and Metamizole may falsely depress this assay. Reference Range HDL <40 mg/dL Low HDL Cholesterol HDL >or= 60 mg/dL High HDL Cholesterol Serum or plasma cholesterol in VLDL measurement (mass/volume)Ordered By: Tiarra Bravo on 02-13-2023 Cholesterol in VLDL [Mass/Vol] 24 mg/dL 5-40 [facility] Serum or plasma creatinine m easurement (mass/volume)Ordered By: Tiarra Bravo on 02-13-2023 Creatinine [Mass/Vol] 0.83 mg/dL 0.70-1.30 [facility] Comment on above: The validity of the calculated GFR & GFRAA in patients over 70 years has not been determined. Clinical correlation is essential. Serum or plasma low density lipoprotein (LDL) cholesterol measurement (mass/volume)Ordered By: Tiarra Bravo on 02-13-2023 Cholesterol in LDL [Mass/Vol] 85 mg/dL 0-130 [facility] Serum or plasma urea nitroge n measurement (mass/volume)Ordered By: Tiarra Bravo on 02-13-2023 Urea nitrogen [Mass/Vol] 15 mg/dL 7-18 [facility] Thin prep Papanicolaou smear with manual screeningOrdered By: Tiarra Bravo on 02-13-2023 Thin prep Papanicolaou smear with manual screening 3 5-15 [facility] Absolute lymphocyte countOrd ered By: Susie Neely on 01-06-2023 Lymphocytes Auto (Unsp spec) [#/Vol] 2.60 10*3/uL 0.83-4.51 [facility] Basophil percentageOrdered B y: Susie Neely on 01-06-2023 Basophils/100 WBC (Bld) 0.8 % 0-1 [facility] Chloride [Moles/Vol] 103 mmol/L 98-107 [facility] Eosinophils/100 WBC (Bld) 3.4 % 0-5 [facility] Glucose [Mass/Vol] 97 mg/dL 74-106 [facility] Neutrophils (Bld) [#/Vol] 5.1 10*3/uL 2.0-7.7 [facility] Neutrophils/100 WBC (Bld) 57.3 % 47-70 [facility] Potassium [Moles/Vol] 3.9 mmol/L 3.5-5.1 [facility] Sodium [Moles/Vol] 137 mmol/L 136-145 [facility] WBC (Bld) [#/Vol] 8.9 10*3/uL 4.4-11.0 [facility] Blood erythrocytes count (nu mber/volume)Ordered By: Susie Neely on 01-06-2023 RBC (Bld) [#/Vol] 4.91 10*6/uL 4.6-6.2 [facility] Blood hemoglobin measurement (mass/volume)Ordered By: Susie Neely on 01-06-2023 Hemoglobin (Bld) [Mass/Vol] 15.2 g/dL 13.0-16.5 [facility] Blood lymphocytes/100 leukoc ytesOrdered By: Susie Neely on 01-06-2023 Lymphocytes/100 WBC (Bld) 29.1 % 19-41 [facility] Blood monocytes/100 leukocyt esOrdered By: Susie Neely on 01-06-2023 Monocytes/100 WBC (Bld) 9.0 % 0-10 [facility] Blood platelet mean volumeOr dered By: Susie Neely on 01-06-2023 Platelet mean volume (Bld) [Entitic vol] 9.6 fL 6.2-12.0 [facility] Determination of erythrocyte mean corpuscular volume (MCV)Ordered By: Susie Neely on 01-06-2023 MCV (RBC) [Entitic vol] 93.3 fL 80-94 [facility] Hematocrit Auto (Bld) [Volum e fraction]Ordered By: Susie Neely on 01-06-2023 Hematocrit (Bld) [Volume fraction] 45.8 % 40-54 [facility] Laboratory - Chemistry and C hemistry - challengeOrdered By: Susie Neely on 01-06-2023 CO2 [Moles/Vol] 31.0 mmol/L 21.0-32.0 [facility] Magnesium [Mass/Vol] 2.2 mg/dL 1.6-2.6 [facility] Natriuretic peptide B (Bld) [Mass/Vol] 104.6 pg/mL 0-100 [facility] Urea nitrogen/Creatinine [Mass ratio] 17.1 mg/mg 10-20 [facility] Laboratory - Hematology and Cell countsOrdered By: Susie Neely on 01-06-2023 Erythrocyte distribution width (RBC) [Entitic vol] 45.5 fL 35.1-43.9 [facility] Erythrocyte distribution width (RBC) [Ratio] 13.3 % 11.6-14.6 [facility] Immature granulocytes/100 WBC (Bld) 0.400 % 0.0-0.9 [facility] Comment on above: IG% - Immature Granu locytes (promyelocytes, myelocytes and metamyelocytes) > 1% indicates that a LEFT SHIFT is Present. MCH (RBC) [Entitic mass] 31.0 pg 27.0-32.0 [facility] Nucleated RBC/100 WBC (Bld) [Ratio] 0 % 0-5 [facility] MCHC Auto (RBC) [Mass/Vol]Or dered By: Susie Neely on 01-06-2023 MCHC (RBC) [Mass/Vol] 33.2 g/dL 32-36 [facility] No Panel InformationOrdered By: Susie Neely on 01-06-2023 Estimated GFR (MDRD) Amer 112 mL/min >60 [facility] Comment on above: GFR Calc Estimated GFR (MDRD) Non-Af Amer 93 mL/min >60 [facility] Comment on above: Non- GFR Calc Thyroid Stimulating Hormone (TSH) 2.20 uIU/mL 0.358-3.74 [facility] Platelets bldOrdered By: Porter Neely on 01-06-2023 Platelets (Bld) [#/Vol] 211 10*3/uL 150-450 [facility] Serum or plasma calcium emre urement (mass/volume)Ordered By: Susie Neely on 01-06-2023 Calcium [Mass/Vol] 9.1 mg/dL 8.5-10.1 [facility] Serum or plasma creatinine m easurement (mass/volume)Ordered By: Susie Neely on 01-06-2023 Creatinine [Mass/Vol] 0.88 mg/dL 0.70-1.30 [facility] Comment on above: The validity of the calculated GFR & GFRAA in patients over 70 years has not been determined. Clinical correlation is essential. Serum or plasma urea nitroge n measurement (mass/volume)Ordered By: Susie Neely on 01-06-2023 Urea nitrogen [Mass/Vol] 15 mg/dL 7-18 [facility] Thin prep Papanicolaou smear with manual screeningOrdered By: Susie Neely on 01-06-2023 Thin prep Papanicolaou smear with manual screening 3 5-15 [facility] Basophil percentageOrdered B y: iTarra Bravo on 12-08-2022 Chloride [Moles/Vol] 105 mmol/L 98-107 [facility] Glucose [Mass/Vol] 100 mg/dL 74-106 [facility] Comment on above: Fasting Glucose resu lt from 100 to 125 mg/dL suggests IMPAIRED HOMEOSTASIS per A.D.A. criteria. Potassium [Moles/Vol] 3.7 mmol/L 3.5-5.1 [facility] Sodium [Moles/Vol] 138 mmol/L 136-145 [facility] Laboratory - Chemistry and C hemistry - challengeOrdered By: Tiarra Bravo on 12-08-2022 CO2 [Moles/Vol] 26.0 mmol/L 21.0-32.0 [facility] Urea nitrogen/Creatinine [Mass ratio] 16.8 mg/mg 10-20 [facility] No Panel InformationOrdered By: Tiarra Bravo on 12-08-2022 Estimated GFR (MDRD) Amer 119 mL/min >60 [facility] Comment on above: GFR Calc Estimated GFR (MDRD) Non-Af Amer 98 mL/min >60 [facility] Comment on above: Non- GFR Calc Urine Microalbumin/Creatin ine Ratio 12.6 mg/g CRE <30 [facility] Serum or plasma calcium emre urement (mass/volume)Ordered By: Tiarra Bravo on 12-08-2022 Calcium [Mass/Vol] 8.9 mg/dL 8.5-10.1 [facility] Serum or plasma creatinine m easurement (mass/volume)Ordered By: Tiarra Bravo on 12-08-2022 Creatinine [Mass/Vol] 0.83 mg/dL 0.70-1.30 [facility] Comment on above: The validity of the calculated GFR & GFRAA in patients over 70 years has not been determined. Clinical correlation is essential. Serum or plasma urea nitroge n measurement (mass/volume)Ordered By: Tiarra Bravo on 12-08-2022 Urea nitrogen [Mass/Vol] 14 mg/dL 7-18 [facility] Thin prep Papanicolaou smear with manual screeningOrdered By: Tiarra Bravo on 12-08-2022 Thin prep Papanicolaou smear with manual screening 7 5-15 [facility] Thin prep Papanicolaou smear with manual screening 16.0 mg/L NO RANGE EST. [facility] Urine creatinine measurement (mass/volume)Ordered By: Tiarra Bravo on 12-08-2022 Creatinine (U) [Mass/Vol] 127.00 mg/dL NO RANGE EST. [facility] Laboratory - Drug toxicology Ordered By: Dr. Varela on 06-19-2022 Amphetamines Ql (U) Negative <1000 ng/mL [facility] Benzodiazepines Ql (U) Negative < 200 ng/mL [facility] Cannabinoids Screen Ql (U) Negative < 50 ng/mL [facility] Cocaine Ql (U) Negative < 300 ng/mL [facility] Opiates Ql (U) Negative < 300 ng/mL [facility] No Panel InformationOrdered By: Dr. Varela on 06-19-2022 MDMA (Ecstasy) Screen Negative < 500 ng/mL [facility] Urine Barbiturates Screen Negative < 200 ng/mL [facility] Urine Drug Screen Comment [facility] Comment on above: CONFIRMATORY TESTING [...] Urine Methadone Screen Negative < 300 ng/mL [facility] Urine phencyclidine (PCP) de tectionOrdered By: Dr. Varela on 06-19-2022 Phencyclidine Ql (U) Negative < 25 ng/mL [facility] ERCPon 04-02-2022 ERCP PATIENTNAME Patient Name: Richi Hu EXAMDATE Procedure Date: 04/02/2022 10:33 AM PATIENTID PATIENTACCOUNTNUM PATIENTDOB Date of : 1955 ADMITTYPE Admit Type: Outpatient PATIENTROOM Site: [facility] 1 ETHNICITY Ethnicity: Not or RACE Race: White PROVDR Attending MD: Argelia Abad MD, [id number] ENDOPROCEDURENAME Procedure: ERCP INDICATION Indications: Common bile duct stone(s), Follow-up of ascending cholangitis, Stent removal, Prior bile duct stent placement, Prior Endoscopic Retrograde Cholangiopancreatography, S/p cholecytectomy PTPROFILE Patient Profile: This is a 66 year old male. Refer to note in patient chart for documentation of history and physical. PRIMARYPROVIDER Providers: Argelia Abad MD (Doctor), Sena Harrison RN (Nurse), Nuria Calderon, Peer Health Promoter EDREFPROVIDER Referring: Argelia Abad MD CURRENT_MEDS Medicines: [...] A biliary stent was visible on the district manager primary care sales film. A standard esophagogastroduodenoscopy scope was used [...] results. CPT_CODES Procedure Code(s): --- Professional --- 32983, Esophagogastroduodenoscopy, flexible, transoral; with removal of foreign body(s) 77956, Esophagogastroduodenoscopy, flexible, transoral; with biopsy, single or multiple ICD_CODES Diagnosis Code(s): --- Professional --- Z98.890, Other specified postprocedural states K83.09, Other cholangitis Z46.59, Encounter for fitting and adjustment of other gastrointestinal appliance and device Z96.89, Presence of other specified functional implants K80.30, Calculus of bile duct with cholangitis, unspecified, without obstruction K31.89, Other diseases of stomach and duodenum CODINGSTMT CPT copyright 2020 [employer]. All rights reserved. The codes documented in this report are preliminary and upon medicine and health service manager rev (more content not included)... Normal [facility] No Panel Informationon 04-02 [facility] Work Phone: [email or web address] } [facility] Work Phone: [facility] Work Phone: Order Reconciliationon 04-02 Order Reconciliation Page 1 Discharge Reconciliation Document Reconciliation Type: Discharge requested on behalf of Agrelia Abad (Physician) done by Argelia Abad) Discharge [...] 1 cap(s) orally once a day Normal [facility] Radiologyon 04-02-2022 Fluoroscopy duration Please click on the link to view the study images Normal [facility] Work Phone: [facility] Surgical Pathology Depar tmenton 04-02-[address] [facility] Surgical Pathology Department Name RICHI HU Pathologist: KAVYA CLEMENTE Date of Procedure: 04/02/2022 Date Received: 04/02/2022 Date Reported 04/07/2022 Submitting Physician: ARGELIA ABAD MD Location: [facility] Other External # FINAL DIAGNOSIS A. ANTHONY AMPULLA BIOPSY: -- DUODENAL MUCOSA WITH MILD FOCAL SUPERFICIAL ACUTE INFLAMMATION. -- NO MALIGNANCY OR DYSPLASIA IDENTIFIED. Electronically Signed Out By KAVYA CLEMENTE/LUCIANO By the signature on this report, the individual or group listed as making the Final Interpretation/Diagnosis certifies that they have reviewed this case. Diagnostic interpretation performed at [facility] [address] [place] [id number] Clinical History: CBD stent removal, history of CBD stones Specimens Submitted As: A: ANTHONY AMPULLA BIOPSY Gross Description: Received in formalin, labeled with the patient's name and hospital number and A. Ampulla BX, is a fragment of ortega, soft tissue measuring 0.3 x 0.2 x 0.2 cm. The specimen is submitted in toto in one cassette. SBS sbs/04/03/2022 [facility] Department of Pathology [address] [place] [address] Normal [facility] Comment on above: Performed By: #### [facility] #### [facility] Surgical Pathology Department [address] [place] [address] No Panel Informationon 02-10 Prostate Specific Antigen Screen 0.75 ng/mL 0.00-4.00 [facility] Work Phone: Comment on above: This test was perfor med using the TPSA assay method for the[employer] chemistry system. Values obtained with differentassay methods cannot be used interchangably.When changing PSA assays in the course of monitoring apatient, additional sequential testing should be carriedout to confirm baseline values. CBCon 01-03-2022 Erythrocyte distribution width (RBC) [Ratio] 14.4 % Normal 11.5 - 14.5 [facility] Comment on above: Performed By: #### M G #### [address] [address] Hematocrit (Bld) [Volume fraction] 38.9 % Low 41.0 - 52.0 [facility] Comment on above: Performed By: #### M G #### [address] [address] Hemoglobin (Bld) [Mass/Vol] 12.7 g/dL Low 13.5 - 17.5 [facility] Comment on above: Performed By: #### M G #### [address] [address] MCHC (RBC) [Mass/Vol] 32.6 g/dL Normal 32.0 - 36.0 [facility] Comment on above: Performed By: #### M G #### [address] [address] MCV (RBC) [Entitic vol] 98 fL Normal 80 - 100 [facility] Comment on above: Performed By: #### M G #### [address] [address] NUCLEATED RBC 0.0 /100 WBC Normal 0.0 - 0.0 [facility] Comment on above: Performed By: #### M G #### [address] [address] Platelets (Bld) [#/Vol] 141 10*3/uL Low 150 - 450 [facility] Comment on above: Performed By: #### M G #### [address] [address] RBC 3.96 x10E12/L Low 4.50 - 5.90 [facility] Comment on above: Performed By: #### M G #### [address] [address] WBC (Bld) [#/Vol] 8.3 10*3/uL Normal 4.4 - 11.3 [facility] Comment on above: Performed By: #### M G #### [address] [address] COMPREHENSIVE PANELon 2021 Albumin [Mass/Vol] 2.9 g/dL Low 3.4 - 5.0 [facility] Comment on above: Performed By: #### C MP #### [address] [address] ALP [Catalytic activity/Vol] 106 U/L Normal 33 - 136 [facility] Comment on above: Performed By: #### C MP #### [address] [address] ALT [Catalytic activity/Vol] 80 U/L High 10 - 52 [facility] Comment on above: Result Comment: Sri ents treated with Sulfasalazine may generate falsely decreased results for ALT. Performed By: #### C MP #### [address] [address] Anion gap [Moles/Vol] 11 mmol/L Normal 10 - 20 [facility] Comment on above: Performed By: #### C MP #### [address] [address] AST [Catalytic activity/Vol] 41 U/L High 9 - 39 [facility] Comment on above: Performed By: #### C MP #### [address] [address] Bilirubin [Mass/Vol] 2.1 mg/dL High 0.0 - 1.2 [facility] Comment on above: Performed By: #### C MP #### [address] [address] Calcium [Mass/Vol] 8.0 mg/dL Low 8.6 - 10.3 [facility] Comment on above: Performed By: #### C MP #### [address] [address] Chloride [Moles/Vol] 104 mmol/L Normal 98 - 107 [facility] Comment on above: Performed By: #### C MP #### [address] [address] Creatinine [Mass/Vol] 0.63 mg/dL Normal 0.50 - 1.30 [facility] Comment on above: Performed By: #### C MP #### [address] [address] eGFR MALE >90 Normal >90 [facility] Comment on above: Result Comment: CALC ULATIONS OF ESTIMATED GFR ARE PERFORMED USING THE 2020 CKD-EPI STUDY REFIT EQUATION WITHOUT THE RACE VARIABLE FOR THE IDMS-TRACEABLE CREATININE METHODS. https://jasn.asnjournals.org/content/early//ASN.8676731 988 Performed By: #### C MP #### [address] [address] Glucose [Mass/Vol] 93 mg/dL Normal 74 - 99 [facility] Comment on above: Performed By: #### C MP #### [address] [address] HCO3 (Bld) [Moles/Vol] 25 mmol/L Normal 21 - 32 [facility] Comment on above: Performed By: #### C MP #### [address] [address] Potassium [Moles/Vol] 3.8 mmol/L Normal 3.5 - 5.3 [facility] Comment on above: Performed By: #### C MP #### [address] [address] Protein [Mass/Vol] 5.2 g/dL Low 6.4 - 8.2 [facility] Comment on above: Performed By: #### C MP #### [address] [address] Sodium [Moles/Vol] 136 mmol/L Normal 136 - 145 [facility] Comment on above: Performed By: #### C MP #### [address] [address] Urea nitrogen [Mass/Vol] 15 mg/dL Normal 6 - 23 [facility] Comment on above: Performed By: #### C MP #### [place] [id number] [place] [address] Laboratory - Chemistry and C hemistry - challengeon 01-03-2022 Albumin BCP dye [Mass/Vol] 2.9 g/dL below low threshold 3.4 - 5.0 [facility] [employer] Work Phone: ALP [Catalytic activity/Vol] 106 U/L 33 - 136 [facility] [employer] Work Phone: ALT With P-5'-P [Catalytic activity/Vol] 80 U/L above high threshold 10 - 52 [facility] [employer] Work Phone: Comment on above: Patients treated wit h Sulfasalazine may generate falsely decreased results for ALT. Anion gap [Moles/Vol] 11 mmol/L 10 - 20 [facility] [employer] Work Phone: AST With P-5'-P [Catalytic activity/Vol] 41 U/L above high threshold 9 - 39 [facility] [employer] Work Phone: Bilirubin [Mass/Vol] 2.1 mg/dL above high threshold 0.0 - 1.2 [facility] [employer] Work Phone: Calcium [Mass/Vol] 8.0 mg/dL below low threshold 8.6 - 10.3 [facility] [employer] Work Phone: Chloride [Moles/Vol] 104 mmol/L 98 - 107 -[facility] [employer] Work Phone: CO2 [Moles/Vol] 25 mmol/L 21 - 32 [facility] [employer] Work Phone: Creatinine [Mass/Vol] 0.63 mg/dL See Below [facility] [employer] Work Phone: Comment on above: Reference Range: 0.5 0 - 1.30 Glucose [Mass/Vol] 93 mg/dL 74 - 99 -[facility] [employer] Work Phone: Potassium [Moles/Vol] 3.8 mmol/L 3.5 - 5.3 [facility] Work Phone: Protein [Mass/Vol] 5.2 g/dL below low threshold 6.4 - 8.2 [facility] Work Phone: Sodium [Moles/Vol] 136 mmol/L 136 - 145 -[facility] Work Phone: Urea nitrogen [Mass/Vol] 15 mg/dL 6 - 23 [facility] [employer] Work Phone: Laboratory - Hematology and Cell countson 01-03-2022 Erythrocyte distribution width (RBC) [Ratio] 14.4 % See Below [facility] Work Phone: Comment on above: Reference Range: 11. 5 - 14.5 Hematocrit (Bld) [Volume fraction] 38.9 % below low threshold See Below [facility] [facility] – [place] [place] Work Phone: Comment on above: Reference Range: 41. 0 - 52.0 Hemoglobin (Bld) [Mass/Vol] 12.7 g/dL below low threshold See Below [facility] [place] Work Phone: Comment on above: Reference Range: 13. 5 - 17.5 MCHC (RBC) [Mass/Vol] 32.6 g/dL See Below [facility] [place] Work Phone: Comment on above: Reference Range: 32. 0 - 36.0 MCV (RBC) [Entitic vol] 98 fL 80 - 100 -[facility] [place] Work Phone: Platelets (Bld) [#/Vol] 141 10*3/uL below low threshold 150 - 450 -[facility] [place] Work Phone: RBC (Bld) [#/Vol] 3.96 {x10E12/L} below low threshold See Below -[facility] [place] [place] Work Phone: Comment on above: Reference Range: 4.5 0 - 5.90 WBC (Bld) [#/Vol] 8.3 10*3/uL 4.4 - 11.3 [facility] [place] Work Phone: MAGNESIUMon 01-03-2022 Magnesium [Mass/Vol] 1.80 mg/dL Normal 1.60 - 2.40 [facility] Comment on above: Performed By: #### M G #### [facility] [address] [place] [address] Magnesium, Serumon 2 Magnesium [Mass/Vol] 1.80 mg/dL See Below MP-[facility] [place] Work Phone: Comment on above: Reference Range: 1.6 0 - 2.40 No Panel Informationon 01-03 >90 >90 -[facility] Work Phone: Comment on above: CALCULATIONS OF SHARON MATED GFR ARE PERFORMED USING THE 2020 CKD-EPI STUDY REFIT EQUATION WITHOUT THE RACE VARIABLE FOR THE IDMS-TRACEABLE CREATININE METHODS.https://jasn.asnjournals.org/content//ASN .7344105428 0.0 {/100_WBC} 0.0 - 0.0 -[facility] Work Phone: Order Reconciliationon 01-03 Order Reconciliation Page 1 Discharge Reconciliation Document Reconciliation Type: Discharge requested on behalf of Geovanna Kahn (Advanced Practice Nurse-Admit) done by Geovanna Kahn ([facility]) Discharge - Reconciliation: 03-Jan-2022 13:19 by: Geovanna Kahn ([facility]) Discharge - Reset to Incomplete: 04-Jan-2022 12:33 by: Geovanna Kahn ([facility]) Discharge - Reconciliation: 04-Jan-2022 12:33 by: Geovanna Kahn ([facility]) Discharge - Reset to Incomplete: 04-Jan-2022 12:39 by: Bebeto Naylor) Discharge - Reconciliation: 04-Jan-2022 12:41 by: Bebeto Naylor) Discharge - Reset to Incomplete: 04-Jan-2022 15:18 by: Bebeto Naylor) Discharge - Reconciliation: 04-Jan-2022 15:19 by: Bebeto Naylor) Discharge - Reset to Incomplete: 04-Jan-2022 19:10 by: Geovanna Kahn ([facility]) Discharge - Reconciliation: 04-Jan-2022 19:10 by: Geovanna Kahn ([facility]) Home Medications EnteredHOME MEDICATIONS AT DISCHARGE [...] continued as lisinopril 20 mg oral tablet De Young 5 mg-325 mg oral tablet 1 tab(s) orally every 6 hours, As Needed 30-Dec-2021 13:21 De Young 5 mg-325 mg oral tablet 1 tab(s) orally every 6 hours, As Needed 04-Jan-2022 12:33 Discontinued; Discontinue from ORM Prescription is created for De Young 5 mg-325 mg oral tablet rivaroxaban 20 [...] be shared with your follow-up providers (doctor, chief of party, physical therapist, etc.). Guidelines for a Healthy Lifestyle All Active Home Medications at time of Discharge Reconciliation: 04-Jan-2022 19:10 (more content not included)... Normal [facility] CBCon 01-02-2022 Erythrocyte distribution width (RBC) [Ratio] 14.3 % Normal 11.5 - 14.5 [facility] Comment on above: Performed By: #### C BC ####[facility] [place] [address] Hematocrit (Bld) [Volume fraction] 39.3 % Low 41.0 - 52.0 [facility] Comment on above: Performed By: #### C BC ####[place] [id number] [place] [address] Hemoglobin (Bld) [Mass/Vol] 12.9 g/dL Low 13.5 - 17.5 [facility] Comment on above: Performed By: #### C BC ####[address] [address] MCHC (RBC) [Mass/Vol] 32.8 g/dL Normal 32.0 - 36.0 [facility] Comment on above: Performed By: #### C BC ####[address] [address] MCV (RBC) [Entitic vol] 97 fL Normal 80 - 100 [facility] Comment on above: Performed By: #### C BC ####[address] [address] NUCLEATED RBC 0.0 /100 WBC Normal 0.0 - 0.0 [facility] Comment on above: Performed By: #### C BC ####[address] [address] Platelets (Bld) [#/Vol] 143 10*3/uL Low 150 - 450 [facility] Comment on above: Performed By: #### C BC ####[address] [address] RBC 4.04 x10E12/L Low 4.50 - 5.90 [facility] Comment on above: Performed By: #### C BC ####[address] [address] WBC (Bld) [#/Vol] 10.4 10*3/uL Normal 4.4 - 11.3 [facility] Comment on above: Performed By: #### C BC ####[address] [address] COMPREHENSIVE PANELon 2021 Albumin [Mass/Vol] 3.1 g/dL Low 3.4 - 5.0 [facility] [place] Comment on above: Performed By: #### M G #### [address] [address] ALT [Catalytic activity/Vol] 111 U/L High 10 - 52 [facility] Comment on above: Result Comment: Sri ents treated with Sulfasalazine may generate falsely decreased results for ALT. Performed By: #### M G #### [address] [place] [address] AST [Catalytic activity/Vol] 71 U/L High 9 - 39 [facility] Comment on above: Performed By: #### M G #### [address] [place] [address] eGFR MALE >90 Normal >90 [facility] Comment on above: Result Comment: CALC ULATIONS OF ESTIMATED GFR ARE PERFORMED USING THE 2020 CKD-EPI STUDY REFIT EQUATION WITHOUT THE RACE VARIABLE FOR THE IDMS-TRACEABLE CREATININE METHODS. https://jasn.asnjournals.org/content/early/ASN.2126255 988 Performed By: #### M G #### [address] [place] [address] HCO3 (Bld) [Moles/Vol] 23 mmol/L Normal 21 - 32 [facility] Comment on above: Performed By: #### M G #### [address] [place] [address] ALP [Catalytic activity/Vol] 118 U/L Normal 33 - 136 [facility] marc [employer] Work Phone: Comment on above: Performed By: #### M G #### [address] [place] [address] Anion gap [Moles/Vol] 13 mmol/L Normal 10 - 20 [facility] marc [employer] Work Phone: Comment on above: Performed By: #### M G #### [address] [place] [address] Bilirubin [Mass/Vol] 2.4 mg/dL High 0.0 - 1.2 MP-U niv [facility]astroenter o[facility]y-[facility] marc [employer] Work Phone: Comment on above: Performed By: #### M G #### [address] [place] [address] Calcium [Mass/Vol] 8.2 mg/dL Low 8.6 - 10.3 [facility] [facility] Work Phone: Comment on above: Performed By: #### M G #### [address] [place] [address] Chloride [Moles/Vol] 104 mmol/L Normal 98 - 107 MP-[facility] [facility] Work Phone: Comment on above: Performed By: #### M G #### [address] [place] [address] Creatinine [Mass/Vol] 0.63 mg/dL Normal 0.50 - 1.30 [facility] Work Phone: Comment on above: Reference Range: 0.5 0 - 1.30 Performed By: #### M G #### [address] [place] [address] Glucose [Mass/Vol] 160 mg/dL High 74 - 99 [facility] [facility] Work Phone: Comment on above: Performed By: #### M G #### [address] [place] [address] Potassium [Moles/Vol] 3.8 mmol/L Normal 3.5 - 5.3 [facility] [facility] Work Phone: Comment on above: Performed By: #### M G #### [address] [place] [address] Protein [Mass/Vol] 5.3 g/dL Low 6.4 - 8.2 MP-[facility] Work Phone: Comment on above: Performed By: #### M G #### [address] [place] [address] Sodium [Moles/Vol] 136 mmol/L Normal 136 - 145 MP-[facility] [facility] Work Phone: Comment on above: Performed By: #### M G #### [facility] [address] [facility] [place] [address] Urea nitrogen [Mass/Vol] 15 mg/dL Normal 6 - 23 [facility] LEIG[facility] Work Phone: Comment on above: Performed By: #### M G #### [address] [place] [address] Daily Progress Note-General Internal Medicineon 01-02-2022 Daily Progress Note-General Internal Medicine Consult Type: subsequent visit/care Service: General Internal Medicine Subjective Data: RICIH HU is a 66 year old Male [...] today. Objective Data: Objective Information: T PRBPMAPSpO2 [id number]/5195% Date/Time01/02 8: 8: 8: 8: 8:00 Range(36.2C [...] CODE STATUS: FULL Electronic Signatures: Geovanna Kahn (COSMETIC SALES CONSULTANT-METAL FLOORING INSTALLER) (Signed 02-Jan-2022 11:56) Authored: Service, Subjective Data, Objective Data, Assessment and Plan, Note Completion Last Updated: 02-Jan-2022 11:56 by Geovanna Kahn (COSMETIC SALES CONSULTANT-METAL FLOORING INSTALLER) [facility] [place] Daily Progress Note-Surgeryo n 01-02-2022 Daily Progress [...] overnight. Objective Data: Objective Information: T PRBPMAPSpO2 [id number]/5596% Date/Time01/02 12: 12: 12: 12: 12:00 Range(36C [...] defer further orders. Electronic Signatures: Taylor Walton (COSMETIC SALES CONSULTANT-METAL FLOORING INSTALLER) (Signed 02-Jan-2022 13:34) Authored: Service, Subjective Data, Objective Data, Assessment and Plan, Note Completion Last Updated: 02-Jan-2022 13:34 by Taylor Walton (COSMETIC SALES CONSULTANT-METAL FLOORING INSTALLER) Normal [facility] Laboratory - Chemistry and C hemistry - challengeon 01-02-2022 Albumin BCP dye [Mass/Vol] 3.1 g/dL below low threshold 3.4 - 5.0 [facility] [employer] Work Phone: ALT With P-5'-P [Catalytic activity/Vol] 111 U/L above high threshold 10 - 52 [facility] [employer] Work Phone: Comment on above: Patients treated wit h Sulfasalazine may generate falsely decreased results for ALT. AST With P-5'-P [Catalytic activity/Vol] 71 U/L above high threshold 9 - 39 [facility] [employer] Work Phone: CO2 [Moles/Vol] 23 mmol/L 21 - 32 [facility] [employer] Work Phone: Laboratory - Hematology and Cell countson 01-02-2022 Erythrocyte distribution width (RBC) [Ratio] 14.3 % See Below [facility] [employer] Work Phone: Comment on above: Reference Range: 11. 5 - 14.5 Hematocrit (Bld) [Volume fraction] 39.3 % below low threshold See Below [facility] [employer] Work Phone: Comment on above: Reference Range: 41. 0 - 52.0 Hemoglobin (Bld) [Mass/Vol] 12.9 g/dL below low threshold See Below [facility] [employer] Work Phone: Comment on above: Reference Range: 13. 5 - 17.5 MCHC (RBC) [Mass/Vol] 32.8 g/dL See Below [facility] [employer] Work Phone: Comment on above: Reference Range: 32. 0 - 36.0 MCV (RBC) [Entitic vol] 97 fL 80 - 100 [facility] [employer] Work Phone: Platelets (Bld) [#/Vol] 143 10*3/uL below low threshold 150 - 450 [facility] Work Phone: RBC (Bld) [#/Vol] 4.04 {x10E12/L} below low threshold See Below [facility] Work Phone: Comment on above: Reference Range: 4.5 0 - 5.90 WBC (Bld) [#/Vol] 10.4 10*3/uL 4.4 - 11.3 [facility] Work Phone: Magnesium, Serumon Magnesium [Mass/Vol] 1.80 mg/dL Normal 1.60 - 2.40 [facility] Work Phone: Comment on above: Reference Range: 1.6 0 - 2.40 Performed By: #### M G #### [address] [address] No Panel Informationon 01-02 >90 >90 [facility] Work Phone: Comment on above: CALCULATIONS OF SHARON MATED GFR ARE PERFORMED USING THE 2020 CKD-EPI STUDY REFIT EQUATION WITHOUT THE RACE VARIABLE FOR THE IDMS-TRACEABLE CREATININE METHODS.https://jasn.asnjournals.org/content/early//ASN .6244593068 0.0 {/100_WBC} 0.0 - 0.0 [facility] Work Phone: CBCon 01-01-2022 Erythrocyte distribution width (RBC) [Ratio] 14.1 % Normal 11.5 - 14.5 [facility] Comment on above: Performed By: #### C BC #### [address] [address] Hematocrit (Bld) [Volume fraction] 39.6 % Low 41.0 - 52.0 [facility] Comment on above: Performed By: #### C BC #### [address] [address] Hemoglobin (Bld) [Mass/Vol] 13.1 g/dL Low 13.5 - 17.5 [facility] Comment on above: Performed By: #### C BC #### [address] [address] MCHC (RBC) [Mass/Vol] 33.1 g/dL Normal 32.0 - 36.0 [facility] Comment on above: Performed By: #### C BC #### [address] [address] MCV (RBC) [Entitic vol] 95 fL Normal 80 - 100 [facility] Comment on above: Performed By: #### C BC #### [address] [address] NUCLEATED RBC 0.0 /100 WBC Normal 0.0 - 0.0 [facility] Comment on above: Performed By: #### C BC #### [address] [address] Platelets (Bld) [#/Vol] 109 10*3/uL Low 150 - 450 [facility] Comment on above: Performed By: #### C BC #### [address] [address] RBC 4.15 x10E12/L Low 4.50 - 5.90 [facility] Comment on above: Performed By: #### C BC #### [address] [address] WBC (Bld) [#/Vol] 6.3 10*3/uL Normal 4.4 - 11.3 [facility] Comment on above: Performed By: #### C BC #### [address] [address] COMPREHENSIVE PANELon 2021 Albumin [Mass/Vol] 3.2 g/dL Low 3.4 - 5.0 [facility] Comment on above: Performed By: #### C MP ####[facility] [facility] [place] [address] ALP [Catalytic activity/Vol] 136 U/L Normal 33 - 136 [facility] Comment on above: Performed By: #### C MP ####[address] [place] [address] ALT [Catalytic activity/Vol] 137 U/L High 10 - 52 [facility] Comment on above: Result Comment: Sri ents treated with Sulfasalazine may generate falsely decreased results for ALT. Performed By: #### C MP ####[address] [address] Anion gap [Moles/Vol] 14 mmol/L Normal 10 - 20 [facility] Comment on above: Performed By: #### C MP ####[address] [address] AST [Catalytic activity/Vol] 102 U/L High 9 - 39 [facility] Comment on above: Performed By: #### C MP ####[address] [address] Bilirubin [Mass/Vol] 3.5 mg/dL High 0.0 - 1.2 [facility] Comment on above: Performed By: #### C MP ####[address] [address] Calcium [Mass/Vol] 8.4 mg/dL Low 8.6 - 10.3 [facility] Comment on above: Performed By: #### C MP ####[address] [address] Chloride [Moles/Vol] 103 mmol/L Normal 98 - 107 [facility] Comment on above: Performed By: #### C MP ####[address] [place] [address] Creatinine [Mass/Vol] 0.63 mg/dL Normal 0.50 - 1.30 [facility] Comment on above: Performed By: #### C MP ####[address] [place] [address] eGFR MALE >90 Normal >90 [facility] Comment on above: Result Comment: CALC ULATIONS OF ESTIMATED GFR ARE PERFORMED USING THE 2020 CKD-EPI STUDY REFIT EQUATION WITHOUT THE RACE VARIABLE FOR THE IDMS-TRACEABLE CREATININE METHODS. https://jasn.asnjournals.org/content/early/ASN.3942114 988 Performed By: #### C MP ####[address] [address] Glucose [Mass/Vol] 110 mg/dL High 74 - 99 [facility] Comment on above: Performed By: #### C MP ####[address] [address] HCO3 (Bld) [Moles/Vol] 24 mmol/L Normal 21 - 32 [facility] Comment on above: Performed By: #### C MP ####[address] [address] Potassium [Moles/Vol] 3.7 mmol/L Normal 3.5 - 5.3 [facility] Comment on above: Performed By: #### C MP ####[address] [address] Protein [Mass/Vol] 5.5 g/dL Low 6.4 - 8.2 [facility] Comment on above: Performed By: #### C MP ####[address] [address] Sodium [Moles/Vol] 137 mmol/L Normal 136 - 145 [facility] Comment on above: Performed By: #### C MP ####[address] [address] Urea nitrogen [Mass/Vol] 14 mg/dL Normal 6 - 23 [facility] Comment on above: Performed By: #### C MP ####[address] [address] Daily Progress Note-Gastroen terologyon 01-01-2022 Daily Progress [...] removal. Objective Data: Objective Information: T PRBPMAPSpO2 [id number]/6693% Date/Time01/01 8: 8: 8: 8: 8:00 Range(35.6C [...] laboratory results: Complete Blood Count Trending View [id number]-Tst-8630 08:46:00 31-Dec-2021 06:08:00 White Blood Cell Count6.3 6.0 Nucleated Erythrocyte Count0.0 0.0 Red Blood Cell Count4.15 L 4.06 L HGB13.1 L 13.0 L HCT39.6 L 39.0 L MCV95 96 MCHC33.1 33.3 FEX676 L 138 L RDW-CV14.1 14.3 Comprehensive Metabolic Panel [employer] View Uwiubp96-Myl-8166 08:46:00 31-Dec-2021 06:08:00 Glucose, Vapgg854 H 112 H NA137 137 K3.7 3.5 CL103 103 Bicarbonate, Serum24 27 Anion Gap, Serum14 11 BUN14 11 CREAT0.63 0.79 GFR Male>90 >90 Calcium, Serum8.4 L 8.3 L ALB3.2 L 3.2 L JQMV466 118 T Pro5.5 L 5.3 L T Bili3.5 H 7.3 H Alanine Aminotransferase, Audgl013 H 165 H Aspartate Transaminase, Xwtaz369 H 170 H Magnesium, Serum Trending View [id number]-Bzv-5321 08:46:00 31-Dec-2021 06:08:00 Magnesium, Serum1.90 1.80 Urinalysis 30-Dec-2021 17:21:00 ResultValue Color, Urine JAVY Reference Range: STRAW,YELLOW Appearance, Urine CLEAR Specific [place], Urine 1.044 H pH, Urine 5.0 Protein, [...] over the past day. He presented to [facility] and was transferred for further [...] 14:55) Authored: (more content not included)... Normal [facility] Daily Progress Note-General Internal Medicineon 01-01-2022 Daily [...] today Objective Data: Objective Information: T PRBPMAPSpO2 [id number]/6693% Date/Time01/01 8: 8: 8: 8: 8:00 Range(35.6C [...] CODE STATUS: FULL Electronic Signatures: Geovanna Kahn (COSMETIC SALES CONSULTANT-METAL FLOORING INSTALLER) (Signed 01-Jan-2022 17:38) Authored: Service, Subjective Data, Objective Data, Assessment and Plan, Note Completion Last Updated: 01-Jan-2022 17:38 by Geovanna Kahn (COSMETIC SALES CONSULTANT-METAL FLOORING INSTALLER) [facility] [place] Discharge Planning Fjkq6hh 1 03-03-2021 Discharge Planning Note2 Discharge Planning: Anticipated Discharge [id number] Discharge Planning 01/01/2022 Richi Hu is a 66 year old male who was admitted to [facility] with abdominal Pain. Chart reviewed, telegraphic typewriter repairer spoke with patient- introduced self and explained [...] discharge. JOHANNA Roque Assessment: Discharge Planning Assessment [id number] Primary Contact Name and NumberHoma [phone](1) Lives Withspouse(1) Living Arrangementshouse(1) Stated Reason for Admissiontransferred for stomach pain(1) [place] Resource/Environmental Concernsnone(1) [place]) [facility]tic[facility]ated [facility](1) Discharge Documentation: Discharge/Transfer Date/[id number]-[id number]-1774 Discharged Accompanied Byfamily member Transportation Methodprivate car Discharge Modewheelchair Code StatusCode Status order at time of discharge: Full Code Discharge Order Writtenyes [place] DNR Form Sent with Patient and/or Familyn/a Final Disposition.Home Electronic Signatures: Cyndi Nava (GRACE) (Signed 01-Jan-2022 12:28) Authored: Discharge Planning, Assessment Seb Raza (STAFF N) (Signed 03-Jan-2022 18:56) Authored: Discharge Planning, Discharge Documentation Last Updated: 03-Jan-2022 18:56 by Seb Raza (STAFF N) References: 1. Data Referenced From Patient Profile - Adult v2 30-Dec-2021 11:15 Normal [facility] Discharge [id number] 022 Discharge Profile2 Discharge Orders: Anticipated Discharge Date: Anticipated Discharge [id number] DNAR: Code Status at Discharge: Full Code [...] Xarelto Diastolic CHF, HLD/ HTN transferred from [place] ED with chief complaint of abdominal pain. [...] Review of Medication Reconciliation and Orders Completedby COSMETIC SALES CONSULTANT Reviewing ProviderMAGDI Griffiths at 03-Jan-2022 13:14:54 Appointments: Follow-Up Appointment 01: Physician/Dept/ServiceDrSon Abad Reason for ReferralGI- Repeat ERCP in 3 months for stent removal. Phone [phone] Commentsplease call to schedule Follow-Up Appointment 02: Physician/Dept/ServiceDr. [place] Reason for ReferralSurgery Call to Schedule in10-14 days Phone [phone] Commentsplease call to schedule Follow-Up Appointment 03: Physician/Dept/Servicepcarmando Reason for Referralhospital follow up with primary care doctor Call to Schedule in1 week Commentsplease call to schedule Electronic Signatures: Geovanna Kahn (COSMETIC SALES CONSULTANT-METAL FLOORING INSTALLER) (Signed 03-Jan-2022 13:14) Authored: Discharge Orders, Hospital Course (Home Care/Gold Form), Provider FINAL REVIEW of Orders, Appointments, Gold Form - Multimedia Author Summary Last Updated: 03-Jan-2022 13:14 by Geovanna Kahn (COSMETIC SALES CONSULTANT-METAL FLOORING INSTALLER) Normal [facility] HEPATIC FUNCTION PANELon Albumin [Mass/Vol] 3.4 g/dL Normal 3.4 - 5.0 [facility] Comment on above: Performed By: #### M G #### [facility] [address] [place] [address] ALP [Catalytic activity/Vol] 160 U/L High 33 - 136 [facility] Comment on above: Performed By: #### M G #### [address] [address] ALT [Catalytic activity/Vol] 155 U/L High 10 - 52 [facility] Comment on above: Result Comment: Sri ents treated with Sulfasalazine may generate falsely decreased results for ALT. Performed By: #### M G #### [address] [address] AST [Catalytic activity/Vol] 132 U/L High 9 - 39 [facility] Comment on above: Result Comment: MILD HEMOLYSIS DETECTED. The result may be falsely elevated due to hemolysis or other interferents. Clinical correlation is recommended. Repeat testing may be considered. Performed By: #### M G #### [address] [address] Bilirubin [Mass/Vol] 2.9 mg/dL High 0.0 - 1.2 [facility] Comment on above: Performed By: #### M G #### [address] [address] Bilirubin.indirect [Mass/Vol] 1.2 mg/dL High 0.0 - 0.3 [facility] Comment on above: Result Comment: MILD HEMOLYSIS DETECTED. The result may be falsely decreased due to hemolysis or other interferents. Clinical correlation is recommended. Repeat testing may be considered. Performed By: #### M G #### [address] [address] Protein [Mass/Vol] 6.3 g/dL Low 6.4 - 8.2 [facility] Comment on above: Performed By: #### M G #### [address] [address] Hepatic Function Panelon Albumin BCP dye [Mass/Vol] 3.4 g/dL 3.4 - 5.0 [facility] Work Phone: ALP [Catalytic activity/Vol] 160 U/L above high threshold 33 - 136 [facility] Work Phone: ALT With P-5'-P [Catalytic activity/Vol] 155 U/L above high threshold 10 - 52 [facility] Work Phone: Comment on above: Patients treated wit h Sulfasalazine may generate falsely decreased results for ALT. AST With P-5'-P [Catalytic activity/Vol] 132 U/L above high threshold 9 - 39 [facility] [employer] Work Phone: Comment on above: MILD HEMOLYSIS DETEC LASHELL. The result may be falsely elevated due tohemolysis or other interferents. Clinical correlation is recommended.Repeat testing may be considered. Bilirubin [Mass/Vol] 2.9 mg/dL above high threshold 0.0 - 1.2 [facility] [employer] Work Phone: Bilirubin.direct [Mass/Vol] 1.2 mg/dL above high threshold 0.0 - 0.3 [facility] [employer] Work Phone: Comment on above: MILD HEMOLYSIS DETEC LASHELL. The result may be falsely decreased due tohemolysis or other interferents. Clinical correlation is recommended.Repeat testing may be considered. Protein [Mass/Vol] 6.3 g/dL below low threshold 6.4 - 8.2 [facility] [employer] Work Phone: Laboratory - Chemistry and C hemistry - challengeon 01-01-2022 Albumin BCP dye [Mass/Vol] 3.2 g/dL below low threshold 3.4 - 5.0 [facility] [employer] Work Phone: ALP [Catalytic activity/Vol] 136 U/L 33 - 136 [facility] [employer] Work Phone: ALT With P-5'-P [Catalytic activity/Vol] 137 U/L above high threshold 10 - 52 [facility] Work Phone: Comment on above: Patients treated wit h Sulfasalazine may generate falsely decreased results for ALT. Anion gap [Moles/Vol] 14 mmol/L 10 - 20 [facility] [employer] Work Phone: AST With P-5'-P [Catalytic activity/Vol] [...] mmol/L 98 - 107 MP-U [facility] Work Phone: CO2 [Moles/Vol] 24 mmol/L 21 - 32 -[facility] Work Phone: Creatinine [Mass/Vol] 0.63 mg/dL See Below -[facility] Work Phone: Comment on above: [...] width (RBC) [Ratio] 14.1 % See Below [facility] Work Phone: Comment on above: Reference Range: 11. 5 - 14.5 Hematocrit (Bld) [Volume fraction] 39.6 % below low threshold See Below [facility] Work Phone: Comment on above: Reference Range: 41. 0 - 52.0 Hemoglobin (Bld) [Mass/Vol] 13.1 g/dL below low threshold See Below [facility] Work Phone: Comment on above: Reference Range: 13. 5 - 17.5 MCHC (RBC) [Mass/Vol] 33.1 g/dL See Below [facility] Work Phone: Comment on above: Reference Range: 32. 0 - 36.0 MCV (RBC) [Entitic vol] 95 fL 80 - 100 [facility] Work Phone: Platelets (Bld) [#/Vol] 109 10*3/uL below low threshold 150 - 450 [facility] Work Phone: RBC (Bld) [#/Vol] 4.15 {x10E12/L} below low threshold See Below [facility] Work Phone: Comment on above: Reference Range: 4.5 0 - 5.90 WBC (Bld) [#/Vol] 6.3 10*3/uL 4.4 - 11.3 [facility] Work Phone: MAGNESIUMon 01-01-2022 Magnesium [Mass/Vol] 1.90 mg/dL Normal 1.60 - 2.40 [facility] Comment on above: Performed By: #### M G #### [facility] [address] [place] [address] Magnesium, Serumon 2 Magnesium [Mass/Vol] 1.90 mg/dL See Below [facility] Work Phone: Comment on above: Reference Range: 1.6 0 - 2.40 No Panel Informationon 01-01 >90 >90 [facility] Work Phone: Comment on above: CALCULATIONS OF SHARON MATED GFR ARE PERFORMED USING THE 2020 CKD-EPI STUDY REFIT EQUATION WITHOUT THE RACE VARIABLE FOR THE IDMS-TRACEABLE CREATININE METHODS.https://jasn.asnjournals.org/content/early/ASN .2460312141 0.0 {/100_WBC} 0.0 - 0.0 [facility] Work Phone: Operative Reports - [place] on 01-01-2022 Operative Reports - [place] SURGEON: Jerrell Washington MD POSTOPERATIVE DIAGNOSES: 1. [...] 66-year-old male patient who was transferred to [facility]. The patient presented at [place] complaining of epigastric right upper quadrant pain radiating to his back. The patient was also markedly jaundiced at that time. The patient was transferred to [facility]. I was not told about the patient's [...] Jerrell Washington MD EST EST DICTATION NUMBER: [id number] INTERNAL JOB NUMBER: [id number] CC: PCP UNKNOWN Jerrell Washington MD Electronic Signatures: Jerrell Washington) (Signed on 14-Jan-2022 11:26) Authored Unsigned, Draft (SYS GENERATED) (Entered on 14-Jan-2022 04:43) Entered Last Updated: 14-Jan-2022 11:26 by Jerrell Washington) [facility] Order Reconciliationon 01-01 Order Reconciliation Page 1 [...] 10 mg (more content not included)... Normal [facility] Surgical Pathology Depar tmenton 01-01-[address] 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 Electronically Signed Out By ÁNGEL RODRIGUEZ MD/WSM By the signature on this report, the individual or group listed as making the Final Interpretation/Diagnosis certifies that they have reviewed this case. Diagnostic interpretation performed at [facility] [address] [facility] [address] Clinical History: Clinical Diagnosis History: history of [...] disruption, the cystic duct is not identified. Train Announcer sections are submitted in one cassette. IAD iad/01/09/2022 [facility] Department of Pathology [address] [place] [address] Normal [facility] Comment on above: Performed By: #### U [facility] #### [facility] Surgical Pathology Department [address] [facility] [address] CBCon 12-31-2021 Erythrocyte distribution width (RBC) [Ratio] 14.3 % Normal 11.5 - 14.5 [facility] Comment on above: Performed By: #### C BC #### [address] [address] Hematocrit (Bld) [Volume fraction] 39.0 % Low 41.0 - 52.0 [facility] Comment on above: Performed By: #### C BC #### [address] [address] Hemoglobin (Bld) [Mass/Vol] 13.0 g/dL Low 13.5 - 17.5 [facility] Comment on above: Performed By: #### C BC #### [address] [address] MCHC (RBC) [Mass/Vol] 33.3 g/dL Normal 32.0 - 36.0 [facility] Comment on above: Performed By: #### C BC #### [address] [address] MCV (RBC) [Entitic vol] 96 fL Normal 80 - 100 [facility] Comment on above: Performed By: #### C BC #### [address] [address] NUCLEATED RBC 0.0 /100 WBC Normal 0.0 - 0.0 [facility] Comment on above: Performed By: #### C BC #### [address] [address] Platelets (Bld) [#/Vol] 138 10*3/uL Low 150 - 450 [facility] Comment on above: Performed By: #### C BC #### [address] [address] RBC 4.06 x10E12/L Low 4.50 - 5.90 [facility] Comment on above: Performed By: #### C BC #### [address] [address] WBC (Bld) [#/Vol] 6.0 10*3/uL Normal 4.4 - 11.3 [facility] Comment on above: Performed By: #### C BC #### [address] [address] COMPREHENSIVE PANELon 2021 Albumin [Mass/Vol] 3.2 g/dL Low 3.4 - 5.0 [facility] Comment on above: Performed By: #### C MP ####[address] [address] ALP [Catalytic activity/Vol] 118 U/L Normal 33 - 136 [facility] Comment on above: Performed By: #### C MP ####[address] [address] ALT [Catalytic activity/Vol] 165 U/L High 10 - 52 [facility] Comment on above: Result Comment: Sri ents treated with Sulfasalazine may generate falsely decreased results for ALT. Performed By: #### C MP ####[address] [address] Anion gap [Moles/Vol] 11 mmol/L Normal 10 - 20 [facility] Comment on above: Performed By: #### C MP ####[address] [address] AST [Catalytic activity/Vol] 170 U/L High 9 - 39 [facility] Comment on above: Performed By: #### C MP ####[address] [address] Bilirubin [Mass/Vol] 7.3 mg/dL High 0.0 - 1.2 [facility] Comment on above: Performed By: #### C MP ####[address] [address] Calcium [Mass/Vol] 8.3 mg/dL Low 8.6 - 10.3 [facility] Comment on above: Performed By: #### C MP ####[address] [place] [address] Chloride [Moles/Vol] 103 mmol/L Normal 98 - 107 [facility] Comment on above: Performed By: #### C MP ####[address] [place] [address] Creatinine [Mass/Vol] 0.79 mg/dL Normal 0.50 - 1.30 [facility] Comment on above: Performed By: #### C MP ####[address] [place] [address] eGFR MALE >90 Normal >90 [facility] Comment on above: Result Comment: CALC ULATIONS OF ESTIMATED GFR ARE PERFORMED USING THE 2020 CKD-EPI STUDY REFIT EQUATION WITHOUT THE RACE VARIABLE FOR THE IDMS-TRACEABLE CREATININE METHODS. https://jasn.asnjournals.org/content//ASN.3541709 988 Performed By: #### C MP ####[address] [place] [address] Glucose [Mass/Vol] 112 mg/dL High 74 - 99 [facility] Comment on above: Performed By: #### C MP ####[address] [place] [address] HCO3 (Bld) [Moles/Vol] 27 mmol/L Normal 21 - 32 [facility] Comment on above: Performed By: #### C MP ####[address] [place] [address] Potassium [Moles/Vol] 3.5 mmol/L Normal 3.5 - 5.3 [facility] Comment on above: Performed By: #### C MP ####[address] [place] [address] Protein [Mass/Vol] 5.3 g/dL Low 6.4 - 8.2 [facility] Comment on above: Performed By: #### C MP ####[address] [place] [address] Sodium [Moles/Vol] 137 mmol/L Normal 136 - 145 [facility] Comment on above: Performed By: #### C MP ####[facility] [facility] [place] [address] Urea nitrogen [Mass/Vol] 11 mg/dL Normal 6 - 23 [facility] Comment on above: Performed By: #### C MP ####[facility] [facility] [place] [address] Daily Progress Note-Gastroen terologyon 12-31-2021 Daily Progress Note-Gastroenterolog y Service: Gastroenterology Subjective Data: RICHI HU is a 66 year old Male who is Hospital Day # 2. Patient lying in bed with continued abdominal discomfort, though fairly well controlled with analgesics. Nausea improved. Bilirubin up trended to 7.3. Jaundice noticed. Plan for ERCP today with Dr. bAad. Objective Data: Objective Information: T PRBPMAPSpO2 [id number]/101624% Date/Time12/31 12: 12: 12: 12: 10: 12:00 [...] laboratory results: Complete Blood Count Trending View [id number] 06:08:00 30-Dec-2021 12:06:00 White Blood Cell Count6.0 9.3 Nucleated Erythrocyte Count0.0 0.0 Red Blood Cell Count4.06 L 4.31 L HGB13.0 L 13.9 HCT39.0 L 41.3 MCV96 96 MCHC33.3 33.7 WAC098 L 140 L RDW-CV14.3 13.9 Comprehensive Metabolic Panel Trending View [id number] 06:08:00 30-Dec-2021 12:06:00 Glucose, Rfabd682 H 126 H NA137 137 K3.5 3.7 CL103 100 Bicarbonate, Serum27 29 Anion Gap, Serum11 12 BUN11 11 CREAT0.79 0.75 GFR Male>90 >90 Calcium, Serum8.3 L 8.5 L ALB3.2 L 3.6 DSHR595 109 T Pro5.3 L 5.8 L T Bili7.3 H 5.1 H Alanine Aminotransferase, Bygkt244 H 140 H Aspartate Transaminase, Remgl822 H 190 H Magnesium, Serum Trending View [id number] 06:08:00 30-Dec-2021 12:06:00 Magnesium, Serum1.80 1.90 Urinalysis 30-Dec-2021 17:21:00 ResultValue Color, Urine JAVY Reference Range: STRAW,YELLOW Appearance, Urine CLEAR Specific [place], Urine 1.044 H pH, Urine 5.0 Protein, [...] thickening. Cho (more content not included)... Normal [facility] Daily Progress Note-General Internal Medicineon 12-31-2021 Daily [...] vomiting. Objective Data: Objective Information: T PRBPMAPSpO2 [id number]/046586% Date/Time12/31 8: 8: 8: 8: 10: 8:00 [...] CODE STATUS: FULL Electronic Signatures: Geovanna Kahn (COSMETIC SALES CONSULTANT-METAL FLOORING INSTALLER) (Signed 31-Dec-2021 11:17) Authored: Service, Subjective Data, Objective Data, Assessment and Plan, (more content not included)... Normal [facility] ERCPon 12-31-2021 ERCP PATIENTNAME Patient Name: Richi Hu EXAMDATE Procedure Date: 12/31/2021 2:17 PM PATIENTID PATIENTACCOUNTNUM PATIENTDOB Date of : 1955 ADMITTYPE Admit Type: Inpatient PATIENTROOM Site: [facility] Endo 1 ETHNICITY Ethnicity: Unknown RACE Race: Unknown PROVDR Attending MD: Argelia Abad MD, [id number] ENDOPROCEDURENAME Procedure: ERCP INDICATION Indications: Common bile duct stone(s), Abdominal pain of suspected biliary origin, Abnormal abdominal CT, Biliary dilation on Ultrasound, Suspected ascending cholangitis, Jaundice, Elevated liver enzymes PTPROFILE Patient Profile: This is a 66 year old male. Refer to note in patient chart for documentation of history and physical. PRIMARYPROVIDER Providers: Argelia Abad MD (Doctor), Collin Vazquez RN (Nurse), Adi Friedman, Electric Sign Assembler EDREFPROVIDER Referring: CURRENT_MEDS Medicines: General Anesthesia COMPLIC [...] tolerated the procedure well. FINDING Findings: The district manager primary care sales film was normal. A standard esophagogastroduodenoscopy scope [...] - Retu (more content not included)... Normal [facility] Laboratory - Chemistry and C hemistry - challengeon 12-31-2021 Albumin BCP dye [Mass/Vol] 3.2 g/dL below low threshold 3.4 - 5.0 [facility] Work Phone: ALP [Catalytic activity/Vol] 118 U/L 33 - 136 [facility] marc [employer] Work Phone: ALT With P-5'-P [Catalytic activity/Vol] 165 U/L above high threshold 10 - 52 [facility] Work Phone: Comment on above: Patients treated wit h Sulfasalazine may generate falsely decreased results for ALT. Anion gap [Moles/Vol] 11 mmol/L 10 - 20 [facility] [employer] Work Phone: AST With P-5'-P [Catalytic activity/Vol] 170 U/L above high threshold 9 - 39 [facility] [employer] Work Phone: Bilirubin [Mass/Vol] 7.3 mg/dL above high threshold 0.0 - 1.2 [facility] [employer] Work Phone: Calcium [Mass/Vol] 8.3 mg/dL below low threshold 8.6 - 10.3 [facility] [employer] Work Phone: Chloride [Moles/Vol] 103 mmol/L 98 - 107 [facility] [employer] Work Phone: CO2 [Moles/Vol] 27 mmol/L 21 - 32 [facility] [employer] Work Phone: Creatinine [Mass/Vol] 0.79 mg/dL See Below [facility] [employer] Work Phone: Comment on above: Reference Range: 0.5 0 - 1.30 Glucose [Mass/Vol] 112 mg/dL above high threshold 74 - 99 [facility] [employer] Work Phone: Potassium [Moles/Vol] 3.5 mmol/L 3.5 - 5.3 [facility] [employer] [employer] Work Phone: Protein [Mass/Vol] 5.3 g/dL below low threshold 6.4 - 8.2 [facility] [employer] Work Phone: Sodium [Moles/Vol] 137 mmol/L 136 - 145 [facility] [employer] Work Phone: Urea nitrogen [Mass/Vol] 11 mg/dL 6 - 23 [facility] Work Phone: Laboratory - Hematology and Cell countson 12-31-2021 Erythrocyte distribution width (RBC) [Ratio] 14.3 % See Below [facility] Work Phone: Comment on above: Reference Range: 11. 5 - 14.5 Hematocrit (Bld) [Volume fraction] 39.0 % below low threshold See Below [facility] Work Phone: Comment on above: Reference Range: 41. 0 - 52.0 Hemoglobin (Bld) [Mass/Vol] 13.0 g/dL below low threshold See Below [facility] [employer] Work Phone: Comment on above: Reference Range: 13. 5 - 17.5 MCHC (RBC) [Mass/Vol] 33.3 g/dL See Below [facility] Work Phone: Comment on above: Reference Range: 32. 0 - 36.0 MCV (RBC) [Entitic vol] 96 fL 80 - 100 [facility] Work Phone: Platelets (Bld) [#/Vol] 138 10*3/uL below low threshold 150 - 450 [facility] Work Phone: RBC (Bld) [#/Vol] 4.06 {x10E12/L} below low threshold See Below [facility] Work Phone: Comment on above: Reference Range: 4.5 0 - 5.90 WBC (Bld) [#/Vol] 6.0 10*3/uL 4.4 - 11.3 [facility] [employer] Work Phone: MAGNESIUMon 12-31-2021 Magnesium [Mass/Vol] 1.80 mg/dL Normal 1.60 - 2.40 [facility] Comment on above: Performed By: #### M G #### [facility] [address] [address] [place] [address] Magnesium, Serumon Magnesium [Mass/Vol] 1.80 mg/dL See Below [facility] [employer] Work Phone: Comment on above: Reference Range: 1.6 0 - 2.40 No Panel Informationon 12-31 [facility] Work Phone: [email or web address] } [facility] [employer] Work Phone: >90 >90 [facility] Work Phone: Comment on above: CALCULATIONS OF SHARON MATED GFR ARE PERFORMED USING THE 2020 CKD-EPI STUDY REFIT EQUATION WITHOUT THE RACE VARIABLE FOR THE IDMS-TRACEABLE CREATININE METHODS.https://jasn.asnjournals.org/content/early/ASN .6727206643 0.0 {/100_WBC} 0.0 - 0.0 [facility] Work Phone: Radiologyon 12-31-2021 Fluoroscopy duration Please click on the link to view the study images Normal [facility] Work Phone: [facility] Surgical Pathology Depar tmenton 12-31-[address] [facility] Surgical Pathology Department Name RICHI HU Pathologist: ANGY AMARO MD Date of Procedure: 12/31/2021 Date Received: 12/31/2021 Date Reported 01/02/2022 Submitting Physician: ARGELIA ABAD MD Location: [address] Copy To/Referring/Attending: ADOLFO ENRIQUEZ, DO Other [...] reviewed this case. Diagnostic interpretation performed at [address] [place] [address] Clinical History: CBD obstruction, elevated LFT's, gastric [...] is submitted in toto in one cassette. [facility]/01/01/2022 [facility] Department of Pathology [address] [place] [address] Normal [facility] Comment on above: Performed By: #### U [facility] #### [facility] Surgical Pathology Department [address] [place] [address] Absolute lymphocyte counton 12-30-2021 Lymphocytes Auto (Unsp spec) [#/Vol] 1.58 10*3/uL 0.83-4.51 [facility] Work Phone: Admission Risk Screen [...] AlertFor Ebola-like Symptoms: Isolate Patient and Notify Provider/Banking Services Advisor For Contact: Notify Provider/Banking Services Advisor Advance Directive: Advance Directive/DNRno Advance Directive Information [...] written material; video Cultural Considerationsnone Developmental Considerationsnone Rastafarian Considerationsnone Learning Assessment (Other Learner): Other learner availableno Depression Screen: During the past month, have you often been bothered by feeling down, depressed or hopelessno During the past month, have you often had little interest or pleasure in doing thingsno Have you had any thoughts of harming anyone elseno [place] Suicide: Risk Screen Not Applicable/Able to Answerable to be screened In the Past Month: Have you wished you were or could go to sleep and not wake upno In the Past Month: Have you had any actual thoughts of killing yourselfno Lifetime: Have you ever done, started to do, or prepared to do anything to end your lifeno [place] Suicide Risknegative Adult Nutrition Screen: Have you [...] Spiritual Screen: Are there any cultural, spiritual, bahai practices/values/needs that are important for us to knowno CAGE: Is this an injured patient at a Trauma Center [place]/[place]): no Vaccinations: Vaccination - Influenza Vaccination Screen: Is it flu season (between and May 30)Yes Screening for identified contraindications to influenza vaccinationpatient already received vaccine this season Vaccination - Pneumonia Vaccination Screen: Patient has received a previous pneumonia vaccine:no/unknown... Immunocompetent persons with underlying chronic conditions or reside in care home ut (more content not included)... Normal [facility] BILIRUBIN,DIRECTon 2 Bilirubin.indirect [Mass/Vol] 2.7 mg/dL High 0.0 - 0.3 [facility] Comment on above: Performed By: #### M G #### [facility] [address] [place] [address] Basophil percentageon 2021 Lactate [Moles/Vol] 2.2 mmol/L 0.4-2.0 [facility] Work Phone: Comment on above: Critical Result(s) C issa at: 06:06:39 12/30/2021 by: Veronika hansen [facility]. Results read back by same. Basophil percentage 0-5 SEEN /hpf 0-5 [facility] Work Phone: Basophils/100 WBC (Bld) 0.6 % 0-1 [facility] Work Phone: Bilirubin [Mass/Vol] 2.70 mg/dL 0.20-1.00 [facility] Work Phone: Comment on above: For patients on eltr ombopag therapy, use of Dimension [place] TBIL is not recommended. Chloride [Moles/Vol] 104 mmol/L 98-107 [facility] Work Phone: Eosinophils/100 WBC (Bld) 1.8 % 0-5 [facility] Work Phone: Glucose [Mass/Vol] 156 mg/dL 74-106 [facility] Work Phone: [phone] Comment on above: Fasting Glucose resu lt greater than or equal to 126 mg/dL suggests DIABETES MELLITUS per A.D.A. criteria. Neutrophils (Bld) [#/Vol] 5.4 10*3/uL 2.0-7.7 [facility] Work Phone: Neutrophils/100 WBC (Bld) 68.5 % 47-70 [facility] Work Phone: Potassium [Moles/Vol] 3.7 mmol/L 3.5-5.1 [facility] Work Phone: Protein [Mass/Vol] 6.8 g/dL 6.4-8.2 [facility] Work Phone: Sodium [Moles/Vol] 139 mmol/L 136-145 [facility] Work Phone: WBC (Bld) [#/Vol] 7.9 10*3/uL 4.4-11.0 [facility] Work Phone: Bilirubin Test strip Ql (U)o n 12-30-2021 Bilirubin Ql (U) Negative Negative [facility] Work Phone: Bilirubin, Serum Direct - Co njugatedon 10-31-2022 Bilirubin.direct [Mass/Vol] 2.7 mg/dL above high threshold 0.0 - 0.3 [facility] Work Phone: Blood erythrocytes count (nu mber/volume)on 12-30-2021 RBC (Bld) [#/Vol] 4.59 10*6/uL 4.6-6.2 [facility] Work Phone: Blood hemoglobin measurement (mass/volume)on 12-30-2021 Hemoglobin (Bld) [Mass/Vol] 14.8 g/dL 13.0-16.5 [facility] Work Phone: Blood lymphocytes/100 leukoc yteson 12-30-2021 Lymphocytes/100 WBC (Bld) 20.1 % 19-41 [facility] Work Phone: Blood monocytes/100 leukocyt eson 12-30-2021 Monocytes/100 WBC (Bld) 8.6 % 0-10 [facility] Work Phone: Blood platelet mean volumeon 12-30-2021 Platelet mean volume (Bld) [Entitic vol] 9.6 fL 6.2-12.0 [facility] Work Phone: CBCon 12-30-2021 Erythrocyte distribution width (RBC) [Ratio] 13.9 % Normal 11.5 - 14.5 [facility] Comment on above: Performed By: #### M G #### [address] [address] Hematocrit (Bld) [Volume fraction] 41.3 % Normal 41.0 - 52.0 [facility] Comment on above: Performed By: #### M G #### [address] [address] Hemoglobin (Bld) [Mass/Vol] 13.9 g/dL Normal 13.5 - 17.5 [facility] Comment on above: Performed By: #### M G #### [address] [address] MCHC (RBC) [Mass/Vol] 33.7 g/dL Normal 32.0 - 36.0 [facility] Comment on above: Performed By: #### M G #### [address] [address] MCV (RBC) [Entitic vol] 96 fL Normal 80 - 100 [facility] Comment on above: Performed By: #### M G #### [address] [address] NUCLEATED RBC 0.0 /100 WBC Normal 0.0 - 0.0 [facility] Comment on above: Performed By: #### M G #### [address] [address] Platelets (Bld) [#/Vol] 140 10*3/uL Low 150 - 450 [facility] Comment on above: Performed By: #### M G #### [address] [address] RBC 4.31 x10E12/L Low 4.50 - 5.90 [facility] Comment on above: Performed By: #### M G #### [address] [address] WBC (Bld) [#/Vol] 9.3 10*3/uL Normal 4.4 - 11.3 [facility] Comment on above: Performed By: #### M G #### [address] [address] COMPREHENSIVE PANELon 2021 Albumin [Mass/Vol] 3.6 g/dL Normal 3.4 - 5.0 [facility] Comment on above: Performed By: #### M G #### [address] [address] ALP [Catalytic activity/Vol] 109 U/L Normal 33 - 136 [facility] Comment on above: Performed By: #### M G #### [address] [address] ALT [Catalytic activity/Vol] 140 U/L High 10 - 52 [facility] Comment on above: Result Comment: Sri ents treated with Sulfasalazine may generate falsely decreased results for ALT. Performed By: #### M G #### [address] [place] [address] Anion gap [Moles/Vol] 12 mmol/L Normal 10 - 20 [facility] Comment on above: Performed By: #### M G #### [address] [place] [address] AST [Catalytic activity/Vol] 190 U/L High 9 - 39 [facility] Comment on above: Performed By: #### M G #### [address] [place] [address] Bilirubin [Mass/Vol] 5.1 mg/dL High 0.0 - 1.2 [facility] Comment on above: Performed By: #### M G #### [address] [place] [address] Calcium [Mass/Vol] 8.5 mg/dL Low 8.6 - 10.3 [facility] Comment on above: Performed By: #### M G #### [address] [place] [address] Chloride [Moles/Vol] 100 mmol/L Normal 98 - 107 [facility] Comment on above: Performed By: #### M G #### [address] [place] [address] Creatinine [Mass/Vol] 0.75 mg/dL Normal 0.50 - 1.30 [facility] Comment on above: Performed By: #### M G #### [address] [place] [address] eGFR MALE >90 Normal >90 [facility] Comment on above: Result Comment: CALC ULATIONS OF ESTIMATED GFR ARE PERFORMED USING THE 2020 CKD-EPI STUDY REFIT EQUATION WITHOUT THE RACE VARIABLE FOR THE IDMS-TRACEABLE CREATININE METHODS. https://jasn.asnjournals.org/content//ASN.3293476 988 Performed By: #### M G #### [address] [place] [address] Glucose [Mass/Vol] 126 mg/dL High 74 - 99 [facility] Comment on above: Performed By: #### M G #### [address] [address] HCO3 (Bld) [Moles/Vol] 29 mmol/L Normal 21 - 32 [facility] Comment on above: Performed By: #### M G #### [address] [address] Potassium [Moles/Vol] 3.7 mmol/L Normal 3.5 - 5.3 [facility] Comment on above: Performed By: #### M G #### [address] [address] Protein [Mass/Vol] 5.8 g/dL Low 6.4 - 8.2 [facility] Comment on above: Performed By: #### M G #### [address] [address] Sodium [Moles/Vol] 137 mmol/L Normal 136 - 145 [facility] Comment on above: Performed By: #### M G #### [address] [address] Urea nitrogen [Mass/Vol] 11 mg/dL Normal 6 - 23 [facility] Comment on above: Performed By: #### M G #### [address] [address] Clinical Intervention - Ora barrera 12-30-2021 Clinical Intervention - Pharmacy Pharmacist's Clinical Intervention: Is this intervention medication reconciliation related: yes, HISTORY Electronic Signatures: Jayla Baig ([employer]) (Signed 30-Dec-2021 12:22) Authored: Pharmacist's Clinical Intervention Last Updated: 30-Dec-2021 12:22 by Jayla Baig ([facility] [employer]) [facility] Consult-Gastroenterologyon 1 Consult-Gastroentero logy Service: Service: Gastroenterology [...] No previous similar episodes. He presented to [facility] and was transferred for further management. Imaging there consistent with cholelithiasis without cholecystitis. No leukocytosis, liver enzymes noted T bili 2.7, ALT 71/AST 95, ALP 123. He has never had EGD. Most recent colonoscopy 2 years ago at [place] with polyp removed. His last dose of [...] Itching, Hives/Urticaria Objective: Objective Information: T PRBPMAPSpO2 [id number]% Date/Time12/30 10: 10: 10: 10: 10: 10:45 [...] Count 4.3 (more content not included)... Normal [facility] Consult-Gastroentero logy This report has been cancelled. Normal [facility] Determination of erythrocyte mean corpuscular volume (MCV)on 12-30-2021 MCV (RBC) [Entitic vol] 93.5 fL 80-94 [facility] Work Phone: EMR ADDONon 12-30-2021 ADDON CONFIRMATION REQUEST REC'D Normal [facility] Comment on above: Performed By: #### E MRAD #### [facility] [address] [place] [address] Hematocrit Auto (Bld) [Volum e fraction]on 12-30-2021 Hematocrit (Bld) [Volume fraction] 42.9 % 40-54 [facility] Work Phone: Ketones Test strip Ql (U)on 12-30-2021 Ketones Ql (U) Negative Negative [facility] Work Phone: Laboratory - Chemistry and C hemistry - challengeon 12-30-2021 Albumin BCP dye [Mass/Vol] 3.6 g/dL 3.4 - 5.0 [facility] [employer] Work Phone: ALP [Catalytic activity/Vol] 109 U/L 33 - 136 [facility] Work Phone: ALT With P-5'-P [Catalytic activity/Vol] 140 U/L above high threshold 10 - 52 [facility] Work Phone: Comment on above: Patients treated wit h Sulfasalazine may generate falsely decreased results for ALT. Anion gap [Moles/Vol] 12 mmol/L 10 - 20 [facility] Work Phone: AST With P-5'-P [Catalytic activity/Vol] 190 U/L above high threshold 9 - 39 [facility] [employer] Work Phone: Bilirubin [Mass/Vol] 5.1 mg/dL above high threshold 0.0 - 1.2 [facility] [employer] Work Phone: Calcium [Mass/Vol] 8.5 mg/dL below low threshold 8.6 - 10.3 [facility] [employer] Work Phone: Chloride [Moles/Vol] 100 mmol/L 98 - 107 [facility] [employer] Work Phone: CO2 [Moles/Vol] 29 mmol/L 21 - 32 [facility] Work Phone: Creatinine [Mass/Vol] 0.75 mg/dL See Below [facility] Work Phone: Comment on above: Reference Range: 0.5 0 - 1.30 Glucose [Mass/Vol] 126 mg/dL above high threshold 74 - 99 [facility] [employer] Work Phone: Potassium [Moles/Vol] 3.7 mmol/L 3.5 - 5.3 [facility] Work Phone: Protein [Mass/Vol] 5.8 g/dL below low threshold 6.4 - 8.2 [facility] Work Phone: Sodium [Moles/Vol] 137 mmol/L 136 - 145 [facility] Work Phone: Urea nitrogen [Mass/Vol] 11 mg/dL 6 - 23 [facility] Work Phone: ALP [Catalytic activity/Vol] 123 U/L 45-117 [facility] Work Phone: ALT [Catalytic activity/Vol] 71 U/L 16-61 [facility] Work Phone: CO2 [Moles/Vol] 26.0 mmol/L 21.0-32.0 [facility] Work Phone: Globulin (S) [Mass/Vol] 3.3 g/dL 2.2-4.2 [facility] Work Phone: Urea nitrogen/Creatinine [Mass ratio] 13.9 mg/mg 10-20 [facility] Work Phone: Laboratory - Hematology and Cell countson 12-30-2021 Erythrocyte distribution width (RBC) [Ratio] 13.9 % See Below [facility] Work Phone: Comment on above: Reference Range: 11. 5 - 14.5 Hematocrit (Bld) [Volume fraction] 41.3 % See Below [facility] Work Phone: Comment on above: Reference Range: 41. 0 - 52.0 Hemoglobin (Bld) [Mass/Vol] 13.9 g/dL See Below [facility] Work Phone: Comment on above: Reference Range: 13. 5 - 17.5 MCHC (RBC) [Mass/Vol] 33.7 g/dL See Below [facility] Work Phone: Comment on above: Reference Range: 32. 0 - 36.0 MCV (RBC) [Entitic vol] 96 fL 80 - 100 [facility] Work Phone: Platelets (Bld) [#/Vol] 140 10*3/uL below low threshold 150 - 450 [facility] Work Phone: RBC (Bld) [#/Vol] 4.31 {x10E12/L} below low threshold See Below [facility] Work Phone: Comment on above: Reference Range: 4.5 0 - 5.90 WBC (Bld) [#/Vol] 9.3 10*3/uL 4.4 - 11.3 -[facility] Work Phone: Erythrocyte distribution width (RBC) [Entitic vol] 46.8 fL 35.1-43.9 [facility] Work Phone: Erythrocyte distribution width (RBC) [Ratio] 13.7 % 11.6-14.6 [facility] Work Phone: Immature granulocytes/100 WBC (Bld) 0.400 % 0.0-0.9 [facility] Work Phone: Comment on above: IG% - Immature Granu locytes (promyelocytes, myelocytes and metamyelocytes) > 1% indicates that a LEFT SHIFT is Present. MCH (RBC) [Entitic mass] 32.2 pg 27.0-32.0 [facility] Work Phone: Nucleated RBC/100 WBC (Bld) [Ratio] 0 % 0-5 [facility] Work Phone: MAGNESIUMon 12-30-2021 Magnesium [Mass/Vol] 1.90 mg/dL Normal 1.60 - 2.40 [facility] Comment on above: Performed By: #### M G #### [facility] [address] [address] [place] [address] MCHC Auto (RBC) [Mass/Vol]on 12-30-2021 MCHC (RBC) [Mass/Vol] 34.5 g/dL 32-36 [facility] Work Phone: Magnesium, Serumon 2 Magnesium [Mass/Vol] 1.90 mg/dL See Below [facility] Work Phone: Comment on above: Reference Range: 1.6 0 - 2.40 Mucus LM Ql (Urine sed)on Mucus Ql (Urine sed) 0 SEEN /hpf [facility] Work Phone: Nitrite Test strip Ql (U)on 12-30-2021 Nitrite Ql (U) Negative Negative [facility] Work Phone: No Panel Informationon 12-30 >90 >90 -[facility] Work Phone: Comment on above: CALCULATIONS OF SHARON MATED GFR ARE PERFORMED USING THE 2020 CKD-EPI STUDY REFIT EQUATION WITHOUT THE RACE VARIABLE FOR THE IDMS-TRACEABLE CREATININE METHODS.https://jasn.asnjournals.org/content//ASN .4963922619 0.0 {/100_WBC} 0.0 - 0.[address] [facility] [address] [facility] Work Phone: Estimated Creatinine Clearance Calc 119.05 ml/min [facility] Work Phone: Estimated GFR (MDRD) Amer 127 mL/min >60 [facility] Work Phone: Comment on above: GFR Calc Estimated GFR (MDRD) Non-Af Amer 105 mL/min >60 [facility] Work Phone: Comment on above: Non- GFR Calc Order Reconciliationon 12-30 Order Reconciliation Page 1 Admission Reconciliation Document Reconciliation Type: Admission requested on behalf of Geovanna Kahn (Advanced Practice Nurse-Admit) done by Geovanna Kahn (COSMETIC SALES CONSULTANT-[facility]) Admission - Reconciliation: 30-Dec-2021 11:40 by: Geovanna Kahn (COSMETIC SALES CONSULTANT-METAL FLOORING INSTALLER) Home MedicationsEnteredLast Dose TakenReconciled with current Order Reconciliation Comment/ Additional Information furosemide 40 mg oral tablet 1 tab(s) orally once a [id number] PM Furosemide Tablet (LASIX)DOSE = 40 mg Oral Dailyfurosemide 40 mg oral tablet is continued and suspended as Furosemide lisinopril 20 mg oral tablet 1 tab(s) orally once a [id number] AM Lisinopril Tablet (PRINIVIL, ZESTRIL)DOSE = 20 mg Oral Dailylisinopril 20 mg oral tablet continued as the inpatient order Lisinopril sotalol 120 mg oral tablet 1 tab(s) orally 2 times a [id number] AM Sotalol Tablet (BETAPACE)DOSE = 120 mg [...] orally once a day (in the evening) [id number] PM Bleeding, Monitor for Xarelto 20 mg [...] Every 8 Hours and as Needed Normal [facility] Patient Profile - Adult v2on 12-30-2021 Patient Profile - Adult v2 Profile: Initial Info: How to be AddressedRichi Mckeon Spoken Language PreferredEnglish Source of Informationpatient Stated Reason for Admissiontransferred for stomach pain Primary Contact Name and NumberHoma, Other Contact Names and NumbersMary, Wants Family/Rep Notified of Admissionyes, primary contact Notify PCPnotify PCP Informed of Patient Visiting Rightsyes Limitations on Visitors/Phone [place]mitted To in Past 90 Daysnone Employment Statusemployed Current or Previous Servicenone Patient Belongingsremains with patient Patient Belongings Remaining with Patientmedical device; vision aids; cell phone/electronics; clothing Medications Brought to Hospitalno History of MDROno General Health: Weight in kg216.3 kilogram(s)(1) Weight in owl508.8 pound(s) Weight Methodactual (measured) (1) Scale Typebed [...] Lives Withspouse Living Arrangementshouse Services [facility] [place]ticipated Transition [place] Significant IndicatorsComplete Information Review: Allergies, Home Meds [...] From 1. Vital Signs 30-Dec-2021 10:45 Normal [facility] Platelets bldon 12-30-2021 Platelets (Bld) [#/Vol] 193 10*3/uL 150-450 [facility] Work Phone: Protein Test strip Ql (U)on 12-30-2021 Protein Ql (U) Negative Negative [facility] Work Phone: Serum or plasma albumin emre urement (mass/volume)on 12-30-2021 Albumin [Mass/Vol] 3.5 g/dL 3.2-5.0 [facility] Work Phone: Serum or plasma albumin/glob ulin mass ratioon 12-30-2021 Albumin/Globulin [Mass ratio] 1.1 {ratio} 0.9-2.4 [facility] Work Phone: Serum or plasma calcium emre urement (mass/volume)on 12-30-2021 Calcium [Mass/Vol] 9.1 mg/dL 8.5-10.1 [facility] Work Phone: Serum or plasma creatinine m easurement (mass/volume)on 12-30-2021 Creatinine [Mass/Vol] 0.79 mg/dL 0.70-1.30 [facility] Work Phone: Comment on above: The validity of the calculated GFR & GFRAA in patients over 70 years has not been determined. Clinical correlation is essential. Serum or plasma urea nitroge n measurement (mass/volume)on 12-30-2021 Urea nitrogen [Mass/Vol] 11 mg/dL 7-18 [facility] Work Phone: Squamous epithelial cells de tection in urine sediment by light microscopyon 12-30-2021 Epithelial cells.squamous LM Ql (Urine sed) 0 SEEN /hpf 0-5 [facility] Work Phone: Thin prep Papanicolaou smear with manual screeningon 12-30-2021 Thin prep Papanicolaou smear with manual screening 95 U/L 15-37 [facility] Work Phone: Thin prep Papanicolaou smear with manual screening 9 5-15 [facility] Work Phone: URINALYSISon 12-30-2021 Appearance (U) CLEAR Normal CLEAR [facility] Comment on above: Performed By: #### M G #### [facility] [address] [place] [address] Bilirubin Ql (U) SMALL(1+) Abnormal NEGATIVE [facility] Comment on above: Performed By: #### M G #### [address] [place] [address] Color (U) JAVY Normal STRAW,YELL OW [facility] Comment on above: Performed By: #### M G #### [address] [place] [address] Glucose Ql (U) Negative Normal NEGATIVE [facility] Comment on above: Performed By: #### M G #### [address] [place] [address] Hemoglobin Ql (U) Negative Normal NEGATIVE [facility] Comment on above: Performed By: #### M G #### [address] [address] Ketones Ql (U) Negative Normal NEGATIVE [facility] Comment on above: Performed By: #### M G #### [address] [place] [address] Leukocyte esterase Test strip Ql (U) Negative Normal NEGATIVE [facility] Comment on above: Performed By: #### M G #### [address] [address] Nitrite Ql (U) Negative Normal NEGATIVE [facility] Comment on above: Performed By: #### M G #### [address] [place] [address] pH (U) 5.0 [pH] Normal 5.0 - 8.0 [facility] Comment on above: Performed By: #### M G #### [address] [place] [address] Protein Ql (U) Negative Normal NEGATIVE [facility] Comment on above: Performed By: #### M G #### [address] [place] [address] Specific gravity (U) [Rel density] 1.044 High 1.005 - 1.035 [facility] Comment on above: Performed By: #### M G #### [address] [place] [address] Urobilinogen (U) [Mass/Vol] 4.0 mg/dL High 0.0 - 1.9 [facility] Comment on above: Result Comment: SOME PIGMENTS AND MEDICATIONS MAY CAUSE A FALSE POSITIVE UROBILINOGEN Performed By: #### M G #### [facility] [address] [place] [address] US RIGHT UPPER QUADRANTon US RIGHT UPPER QUADRANT Patient Name: RICHI HU STUDY: US RUQ ABDOMEN; 12/30/2021 2:30 pm INDICATION: RUQ abd pain, . COMPARISON: None. ACCESSION NUMBER(S): [id number] ORDERING CLINICIAN: GEOVANNA ALEGRE TECHNIQUE: Multiple images [...] Electronically signed by: SANFORD MEDINA MD Normal [facility] Ultrasound Right Upper Quadr elder 12-30-2021 Ultrasound Right Upper Quadrant Normal [facility] Work Phone: Urinalysison 12-30-2021 Color (U) JAVY See Below [facility] Work Phone: Comment on above: Reference Range: STR AW,YELLOW Glucose Ql (U) Negative NEGATIVE [facility] [employer] Work Phone: Ketones Ql (U) Negative NEGATIVE [facility] Work Phone: Leukocyte esterase Test strip Ql (U) Negative NEGATIVE -[facility] Work Phone: pH (U) 5.0 [pH] 5.0 - 8.0 [facility] Work Phone: Protein (U) [Mass/Vol] Negative NEGATIVE -[facility] Work Phone: RBC (U) [#/Vol] Negative NEGATIVE -[facility] Work Phone: Specific gravity (U) [Rel density] 1.044 1 above high threshold See Below -[facility] Work Phone: Comment on above: Reference Range: 1.0 05 - 1.035 Urinalysis Negative NEGATIVE -[facility] Work Phone: Urinalysis 4.0 mg/dL above high threshold 0.0 - 1.9 -[facility] Work Phone: Comment on above: SOME PIGMENTS AND ME DICATIONS MAY CAUSE AFALSE POSITIVE UROBILINOGEN Urinalysis SMALL(1+) Abnormal NEGATIVE -[facility] Work Phone: Urinalysis CLEAR CLEAR [facility] Work Phone: Urine blood detectionon 12-02 RBC Ql (U) Negative Negative [facility] Work Phone: RBC Ql (U) 0 SEEN /hpf 0-5 [facility] Work Phone: Urine clarityon 12-30-2021 Clarity (U) Clear Clear [facility] Work Phone: Urine color determinationon 10-31-2022 Color (U) Yellow Yellow [facility] Work Phone: Urine glucose detectionon Glucose Ql (U) Normal mg/dl Normal [facility] Work Phone: Urine leukocyte esterase det ection by dipstickon 12-30-2021 Leukocyte esterase Test strip Ql (U) 25 /ul Negative [facility] Work Phone: Urine pHon 12-30-2021 pH (U) 7.0 [pH] 5.0 - 8.0 [facility] Work Phone: Urine sediment bacteria coun t by microscopy (number/high power field)on 12-30-2021 Bacteria LM.HPF (Urine sed) [#/Area] RARE /hpf None Seen [facility] Work Phone: Urine specific gravity measu rementon 12-30-2021 Specific gravity (U) [Rel density] 1.010 1.002-1.03 0 [facility] Work Phone: Urobilinogen Auto test strip Ql (U)on 12-30-2021 Urobilinogen Ql (U) 4 mg/dl Normal [facility] Work Phone: CNPNon 06-18-2020 [email or web address] Telephone ([facility]) RICHI HU ([id number]) 1955 M Date Time Provider Department 06/18/20 LEONOR VELEZ [facility] During your visit today, we recorded the following information about you: Katlin Sequeira 06/18/2020 10:04 AM Signed Received request for medical records from [facility], Dr. Soham Lamb [address] [place], [place] [address] Ph.: [phone] Sent request to medical records. Sending copy of request to patients chart. Katlin Sequeira [facility] Allergies As of Date: [...] Status:Closed by KATLIN SEQUEIRA on 06/18/20 Normal [facility] RF-Lumbar Spine 2 or 3 Views IMPORTon 05-08-2020 RF-Lumbar Spine 2 or 3 Views IMPORT Images were obtained outside of [facility] [id number] Normal [facility] MR-Spine Lumbar W/WO Contras t IMPORTon 05-07-2020 MR-Spine Lumbar W/WO Contrast IMPORT Images were obtained outside of [facility] [id number] Normal [facility] Final Surgical Pathology Rep [facility] 05-01-2020 Final Surgical Pathology Report . Pathology Reports Accession: Collected Date/Time: Received Date/Time: Pathologist: [id number] 04/27/2020 10:45 EST 04/30/2020 08:18 MD ADOLFO MIRANDA Final Surgical Pathology Report DIAGNOSIS: A) SIGMOID COLON, POLYPECTOMY -- TUBULAR ADENOMA. B) SPLENIC FLEXURE OF COLON, POLYPECTOMY -- TUBULAR ADENOMA. COMMENT: [facility] - D# [id number] CLINICAL INFORMATION: Procedure: COLONOSCOPY WITH POLYPECTOMY Preoperative [...] Electronically Signed by Pathology Report verified by [facility] Electronically signed by ADOLFO NIETO MD Sign out Date: 05/01/2020 16:22 Performing Lab: [facility], [address] [place] [id number] [place] [address] ([place]) Comment on above: Performed By: #### S PFR #### [place] [id number] COVID-19 virus antigen assay SARS-CoV-2 (COVID-19) Ag IA.rapid Ql (Resp) [facility] Work Phone: Vital Signs Date Time Vital Sign Value Performing Clinician Facility 07-19-2024 07:07-0400 Body height 190.[address] Tiarra Bravo MD Work Phone: [facility] 07-19-2024 07:07-0400 Body mass index (BMI) [Ratio] 56.2 kg/m2 Dr. Tiarra Bravo MD Work Phone: [facility] 07-19-2024 07:07-0400 Body weight 204.[address] Tiarra Bravo MD Work Phone: [facility] 07-19-2024 07:07-0400 Diastolic blood pressure 83 mm[Hg] Dr. Tiarra Bravo MD Work Phone: [facility] 07-19-2024 07:07-0400 Heart rate 72 /min Dr. Tiarra Bravo MD Work Phone: [facility] 07-19-2024 07:07-0400 Respiratory rate 22 /min Dr. Tiarra Bravo MD Work Phone: [facility] 07-19-2024 07:07-0400 SaO2% (BldA) [Mass fraction] 96 % Dr. Tiarra Bravo MD Work Phone: [facility] 07-19-2024 07:07-0400 Systolic blood pressure 127 mm[Hg] Dr. Tiarra Bravo MD Work Phone: [facility] 02-09-2023 08:40-0500 Body temperature 97.3 [degF] Dr. Tiarra Bravo Work Phone: [facility] 02-09-2023 08:40-0500 Diastolic blood pressure 79 mm[Hg] Dr. Tiarra Bravo Work Phone: [facility] 02-09-2023 08:40-0500 Heart rate 77 /min Dr. Tiarra Bravo Work Phone: [facility] 02-09-2023 08:40-0500 Respiratory rate 16 /min Dr. Tiarra Bravo Work Phone: [facility] 02-09-2023 08:40-0500 SaO2% (BldA) [Mass fraction] 96 % Dr. Tiarra Bravo Work Phone: [facility] 02-09-2023 08:40-0500 Systolic blood pressure 128 mm[Hg] Dr. Tiarra Bravo Work Phone: [facility] 01-06-2023 14:53-0500 Body height 195.[address] Tiarra Bravo Work Phone: [facility] 01-06-2023 14:53-0500 Body mass index (BMI) [Ratio] 53.1 kg/m2 Dr. Tiarra Bravo Work Phone: [facility] 01-06-2023 14:53-0500 Body weight 203.[address] Tiarra Bravo Work Phone: [facility] 01-06-2023 14:53-0500 Diastolic blood pressure 73 mm[Hg] Dr. Tiarra Bravo Work Phone: [facility] 01-06-2023 14:53-0500 Heart rate 58 /min Dr. Tiarra Bravo Work Phone: [facility] 01-06-2023 14:53-0500 Respiratory rate 22 /min Dr. Tiarra Bravo Work Phone: [facility] 01-06-2023 14:53-0500 SaO2% (BldA) [Mass fraction] 99 % Dr. Tiarra Bravo Work Phone: [facility] 01-06-2023 14:53-0500 Systolic blood pressure 153 mm[Hg] Dr. Tiarra Bravo Work Phone: [facility] 01-14-2022 10:50-0500 Body height 195.[address] Tiarra Bravo Work Phone: [facility] Work Phone: 01-14-2022 10:50-0500 Body mass index (BMI) [Ratio] 53.8 kg/m2 Dr. Tiarra Bravo Work Phone: [facility] Work Phone: 01-14-2022 10:50-0500 Body weight 205.[address] Tiarra Bravo Work Phone: [facility] Work Phone: 01-14-2022 10:50-0500 Diastolic blood pressure 77 mm[Hg] Dr. Tiarra Bravo Work Phone: [facility] Work Phone: 01-14-2022 10:50-0500 Heart rate 64 /min Dr. Tiarra Bravo Work Phone: [facility] Work Phone: 01-14-2022 10:50-0500 Respiratory rate 18 /min Dr. Tiarra Bravo Work Phone: [facility] Work Phone: 01-14-2022 10:50-0500 SaO2% (BldA) [Mass fraction] 96 % Dr. Tiarra Bravo Work Phone: [facility] Work Phone: 01-14-2022 10:50-0500 Systolic blood pressure 130 mm[Hg] Dr. Tiarra Bravo Work Phone: [facility] Work Phone: 01-10-2022 11:15-0500 Body height 193.04 cm Referring Provider [facility] Work Phone: 01-10-2022 11:15-0500 Body mass index (BMI) [Ratio] 26.29 kg/m2 Referring Provider [facility] Work Phone: 01-10-2022 11:15-0500 Body surface area Derived from formula 2.29 m2 Referring Provider [facility] Work Phone: 01-10-2022 11:15-0500 Body weight 97.98 kg Referring Provider [facility] Work Phone: 12-30-2021 08:00-0400 Diastolic blood pressure 79 mm[Hg] [facility] Work Phone: 12-30-2021 08:00-0400 Heart rate 63 /min [facility] Work Phone: 12-30-2021 08:00-0400 Respiratory rate 16 /min [facility] Work Phone: 12-30-2021 08:00-0400 SaO2% (BldA) [Mass fraction] 96 % [facility] Work Phone: 12-30-2021 08:00-0400 Systolic blood pressure 138 mm[Hg] [facility] Work Phone: 12-30-2021 07:01-0400 Body temperature 97.4 [degF] [facility] Work Phone: 12-30-2021 00:04-0400 Body height 195.58 cm [facility] Work Phone: 12-30-2021 00:04-0400 Body mass index (BMI) [Ratio] 65.7 kg/m2 [facility] Work Phone: 12-30-2021 00:04-0400 Body weight 251.7 kg [facility] Work Phone: Encounters Encounter Date Encounter Type Care Provider Facility Start: 08-25-2024 ambulatory Taylor Griffin ty:[facility] Start: 07-19-2024 End: 07-19-2024 Patient encounter procedure Taylor Patel [facility] [facility] Work Phone: Start: 07-19-2024 End: 07-19-[address] Tiarra Bravo MD Work Phone: [facility] Work Phone: Start: 04-12-2024 End: 04-12-[address] Demetria Varela MD -Laboratory Work Phone: Start: 04-12-2024 End: 04-12-2024 ambulatory Tiarra S Jolliff Facility:[facility] Start: 02-22-2024 End: 02-22-2024 ambulatory Tiarra S Jolliff Facility:[facility] Start: 02-15-2024 ambulatory Terell Silviano Facility:[facility] Start: 02-15-2024 End: 02-15-2024 ambulatory Terell Silviano Facility:[facility] Start: 02-08-2024 End: 02-08-2024 ambulatory Tiarra S Jolliff Facility:[facility] Start: 01-25-2024 End: 01-25-2024 ambulatory Susie MUSA Facility:[facility] Start: 12-31-2023 End: 12-31-2023 ambulatory Tiarra S Jolliff Facility:[facility] Start: 12-14-2023 End: 12-14-2023 ambulatory Tiarra S Shelly Facility:[facility] Start: 04-01-2023 End: 04-01-[address] Tiarra Bravo Work Phone: [facility] Work Phone: Start: 04-01-2023 End: 04-01-[address] Tiarra Bravo Work Phone: [facility] Work Phone: Start: 02-13-2023 End: 02-13-[address] Tiarra Bravo Work Phone: [facility] Work Phone: Start: 02-13-2023 End: 02-13-[address] Tiarra Bravo Work Phone: [facility] Work Phone: Start: 02-09-2023 End: 02-09-[address] Tiarra Bravo Work Phone: [facility] Work Phone: Start: 02-04-2023 Non-patient / Non-visit Dr. Debra Bravo Work Phone: [facility] Start: 02-04-2023 End: 02-04-[address] Tiarra Bravo Work Phone: [facility] Work Phone: Start: 02-04-2023 End: 02-04-[address] [facility] Work [facility]: Start: 01-20-2023 Non-patient / Non-visit Dr. Debra Bravo Work Phone: [facility] Work Phone: Start: 01-20-2023 End: 01-20-[address] Tiarra Bravo Work Phone: [facility] Work Phone: Start: 01-20-2023 End: 01-20-[address] Tiarra Bravo Work Phone: [facility] Work Phone: Start: 01-15-2023 End: 01-15-[address] Tiarra Bravo Work Phone: [facility] Work Phone: Start: 01-15-2023 End: 01-15-[address] [facility] Start: 01-06-2023 End: 01-06-[address] Tiarra Bravo Work Phone: [facility] Work Phone: Start: 01-06-2023 End: 01-06-[address] Tiarra Bravo Work Phone: [facility] Work Phone: Start: 12-08-2022 End: 12-08-2022 ambulatory [facility] Work Phone: Start: 12-08-2022 End: 12-08-2022 Patient encounter procedure [facility] Start: 06-19-2022 End: 06-19-2022 ambulatory [facility] Work Phone: Start: 06-19-2022 End: 06-19-2022 Patient encounter procedure [facility] Start: 04-13-2022 Message Tiarra Bravo [facility] Phone[facility] Work Phone: Start: 04-02-2022 End: 04-02-[address] Tiarra Bravo Facility:[id number] Start: 02-10-2022 End: 02-10-[address] Tiarra Bravo Work Phone: [facility] Work Phone: Start: 02-10-2022 End: 02-10-[address] Tiarra Bravo Work Phone: [facility] Start: 01-14-2022 End: 01-14-[address] Tiarra Bravo Work Phone: [facility] Start: 01-10-2022 AUDIT Referring [facility] Work Phone: Start: 01-04-2022 Message Referring Prov ider Unknown [facility] Work Phone: Start: 12-30-2021 End: 01-03-2022 Evaluation and management of inpatient PCP UNKNOWN Facility:[id number] Start: 12-30-2021 End: 12-30-2021 Emergency department patient visit [facility] Start: 10-15-2021 ambulatory EMMANUEL COREA Facility: [facility] Procedures Date Procedure Procedure Detail Performing Clinician [...] Activity Detail Author Start: 07-19-2024 Patient referral [facility] Work Phone: Start: 07-19-2024 Evaluation of diagnostic study results 12 Lead EKG performed by [facility] Start: 04-01-2023 Procedure [facility] Start: 06-19-2022 Procedure [facility] Start: 04-02-2022 ERCPANS, Provider: Argelia Abad, Status: Pen, Time: 7:30 AM ERCPANS, Provider: Argelia Abad, Status: Pen, Time: 7:30 AM [facility] Work Phone: 24 Hour ECG [facility] Patient referral [facility] Work Phone: [facility] Immunizations Immunization Date Immunization Notes Care Provider Semaj esposito 01-01-2020 Influenza virus vaccine [facility] 01-09-2014 Influenza virus vaccine [facility] Payers Date Payer Category Payer Unknown [id number] 2024 Unknown [id number] 2023 Self-pay [id number] 2015 Unknown [id number] 2015 Unknown [id number] 1957 Unknown [id number] 2.16. [id number] 1957 Unknown [id number] 2.16. [id number] 1957 Unknown [id number] 2.16.8 [id number] 1957 Unknown [id number] 2.16.8 [id number] Unknown ANTHEM Unknown [id number] 2.16.8 [id number] Unknown [id number] 2.16.8 [id number] Unknown [id number] 2.16.8 [id number] Unknown [id number] 2.16.8 [id number] Unknown [id number] 2.16.8 [id number] Unknown [id number] 2.16.8 [id number] Unknown [id number] 2.16.8 [id number] Unknown [id number] 2.16.8 [id number] Unknown [id number] 2.16.8 [id number] Unknown [id number] 2.16.8 [id number] Unknown [id number] 2.16.8 [id number] Social History Date Type Detail Facility Start: 12-30-2021 End: 02-09-2023 Tobacco smoking status NHIS Unknown if ever smoked [facility] Start: 05-06-2020 None [facility] Start: 05-06-2020 Spouse/ Signif icant Other [facility] Start: 07-23-2020 Non-smoker [facility] Start: 1955 Sex Assigned At Male W [facility] Start: 02-15-2024 Tobacco smoking status NHIS Never smoked tobacco (finding) [facility] Clinical Notes 05-17-2020 to 01-03-2022 [...] of : 1955 Admit Type: Inpatient Site: [facility] Endo 1 Ethnicity: Unknown Race: Unknown Attending MD: Argelia Abad MD, [id number] Dec 31, 2021 Condition at Discharge: Satisfactory Disposition at Discharge: Home Vital Signs: T PRBPMAPSpO2 Value35.81095514/617598% Date/Time01/03 12: 12: 12: 12: 12: 12:00 Range(35.8C - 37.5C ) (56 - 74 ) (17 - 22 ) (109 - 124 )/ (51 - 66 ) (78 - 81 ) (93% - 98% ) As of 03-Jan-2022 09:00:00, patient is on 0 L/min of oxygen via CPAP. Highest temp of 37.5 C was recorded at 01/03 4:00 Date: Weight/Scale Type:Height: 30-Dec-2021 11:00870.3 kg / ggm699.5 cm Physical Exam: Constitutional: Well developed, awake/alert/oriented [...] Xarelto Diastolic CHF, HLD/ HTN transferred from [place] ED with chief complaint of abdominal pain. [...] Reason for Referral: (more content not included)... [facility] 12-30-2021 Note History of Present I llness: Admission Reason: abdominal pain HPI: RICHI HU is a 66 year old Male with a past medical history of afib Xarelto Diastolic CHF, HLD/ HTN transferred from [place] ED with chief complaint of abdominal pain. [...] this patient. Objective: Objective Information: T PRBPMAPSpO2 Value36.47231083/3771248% Date/Time12/30 10: 10: 10: 10: 10: 10:45 [...] HOLD for poss (more content not included)... [facility] 12-25-2020 Evaluation note Diagnosis Onset Date Resolution Atrial fibrillation/flutte r December 25, 2020 chronic July 19, 2024 10:32am Central sleep apnea associated with atrial fibrillation chronic July 19 10:32am Chronic diastolic (congestive) heart failure chronic July 19, 2024 10:32am Essential (primary) hypertension chronic July 19, 2024 10:32am History of radiofrequency ablation procedure for cardiac arrhythmia November 29, 2020 resolved July 19, 2024 10:32am [facility] [employer] Work Phone: [phone] NoteHNO ID: [id number] Author: Leonor Velez Service: ? Author Type: Physician Type: Progress Notes Filed: 05/31/2020 8:58 AM Note Text: VIRTUAL VISIT PROGRESS NOTE This is a virtual visit using [email or web address] video visit. It required patient-provider interaction for [...] to ambulate. He was managed locally in [place] and underwent CONCETTA's which have offered significant [...] visit. I spent more than 20 minutes [id number] with the patient and over half the time was devoted to counseling and/or coordination of care. Leonor Velez, [facility]03-18-2021 NoteHNO ID: [id number] Author: Evelyn Hernandez (Pa) Service: ? Author Type: Physician Certified Surgical First Assistant Type: Progress Notes Filed: 05/18/2020 1:54 PM [...] Fusion by Dr. Leonor Velez MD at [facility] CMT: Muscle relaxants Narcotics - Hydrocodone Injections at [facility] Studies (Reports unless indicated) 01/30/2020 [...] Evelyn Hernandez PA-C May 18, 2020 1:53 [facility]03-18-2021 NoteHNO ID: [id number] Author: Mariel TURNER Service: ? Author Type: ? Type: Progress Notes Filed: 05/18/2020 1:54 PM Note Text: Patient name: Richi Hu Are you being referred by a [facility] Provider or Pain Management Provider at [facility]? No If answer is YES please schedule [...] the facility where the MRI/CT/myelogram was completed: [place] [address] MRI/CT/myelogram viewable in Epic: No If not, please provide [phone] to fax in imaging reports for review. Also, please inform patient to hand carry imaging disc to appointment. XR (spine) within 12 months: Yes If YES,? please ask for the name/address of the facility where the XR was completed: [place] [address] Requested provider (First and Last name): unknown [...] injections and/or physical therapy was completed Injections: [place] [address] Have you tried any other kinds of [...] [address] Leonor Velez [place] [address] Additional Comments : [phone] Medical [facility] noteNo assessment information availableWPremier [facility] Work Phone: Evaluation note* Diagnosis Onset Date Resolution Status Essential (primary) hypertension chronic Paroxysmal atrial fibrillation [facility] Work Phone: Evaluation note* Diagnosis Onset Date Resolution Status Dyspnea acute Chronic diastolic (congestive) heart failure chronic Essential (primary) hypertension chronic Paroxysmal atrial fibrillation [facility] Work Phone: Evaluation note* Diagnosis Onset Date Resolution Status Dyspnea acute Chronic diastolic (congestive) heart failure chronic Essential (primary) hypertension chronic Paroxysmal atrial fibrillation chronic Impacted cerumen of both ears acute [facility] Work Phone: Hospital Discharge instructionsAmbulatory Orders* Electrophysiology Location: None [facility] Work Phone: Summary Purpose Family History No Family History Records Found Relationship Condition Age at Onset Recorded Date/T lalo father Malignant neoplasm Unknown Advance Directives No Advanced Directives Records Found Advance Directive Response Recorded Date/ Time Advance Directives No December 25, 2020 10:23am Living Will No December 30 12:09am Power of [place]p [place] No December 30, 2021 12:09am Advance Directive Response Recorded Date/ Time Advance Directives No December 25, 2020 9:23am Living Will No December 29 11:09pm Power of [place] No December 29, 2021 11:09pm Advance Directive [...] section and content) DATE CREATED AUTHOR 05/08/2020 [facility] ([place]) DATE CREATED AUTHOR AUTHOR'S ORGANIZ ATION 04/04/2021 [facility] DATE CREATED AUTHOR AUTHOR'S ORGANIZ ATION 04/07/2022 [facility] DATE CREATED AUTHOR AUTHOR'S ORGANIZ ATION 05/28/2022 [facility] DATE CREATED AUTHOR AUTHOR'S ORGANIZ ATION 06/07/2022 [facility] DATE CREATED AUTHOR AUTHOR'S ORGANIZ ATION 07/29/2024 [facility] Goals (unrecognized section and content) Goals may [...] End: July 19, 2024 Taylor Patel NP, [facility] Attending Provider Active Start: July 19, 2024 [...] BE BASED ON THE PRIMARY CLINICAL RECORDS. [facility]. provides no warranty or guarantee of the accuracy or completeness of information in this document.
[2024-08-07 13:53] LABS: Troponin T High Sens 2 HR 8 ng/L (<=22)
[2024-08-07] MEDS: Furosemide 40 MG/4 ML Vial IV ×2 (14:54→18:04)
--- NOTE | 2024-08-07 15:07 | PCM.HP.STD ---
HPI - General General Date of Admission: 08/07/24 Date of Service: 08/07/24 Chief Complaint: Shortness of breath, right leg redness/pain HPI Narrative RICHI HU, is a 69 M who presents to the emergency room at [facility] with complaints of shortness of breath particularly on exertion and right leg redness x 2 days. Patient has a history of atrial fibrillation and is currently on Xarelto. Patient denies any fever, he denies any chills. Labs were obtained in the emergency room, white blood cell count was 11.8, chemistry profile was unremarkable, patient's beta natruretic peptide was 706. Patient's pulse ox on room air was above 90%, he did not desaturate on activity. Patient had chest x-ray performed which showed no evidence of CHF. Examination of the right leg revealed a reddened area along with tenderness on the lateral right thigh extending into the right proximal leg. There is generalized edema in both lower extremities. Patient will be admitted for right leg cellulitis and anasarca, he will be placed on IV Lasix and he received IV clindamycin. Labs will be monitored. [facility] Medical History (Updated 08/07/24 @ 14:02 by Liberty Lucas) CPAP (continuous positive airway pressure) dependence Sleep apnea Congestive heart failure (CHF) Hypertension Impacted cerumen of both ears Cholecystitis History of CVA (cerebrovascular accident) (04/2018) Persistent atrial fibrillation Lumbar stenosis without neurogenic claudication COVID-19 virus detected (02/17/20) Dysfunction of both eustachian tubes Diffuse otitis externa, left ear Severe headache Fatigue SOB (shortness of breath) Paroxysmal atrial fibrillation Central sleep apnea associated with atrial fibrillation Persistent atrial fibrillation Hyperlipidemia Chronic diastolic (congestive) heart failure Bilateral pulmonary embolism (05/02/18) Paroxysmal atrial fibrillation with rapid ventricular response (05/02/18) Obesity Central sleep apnea Essential (primary) hypertension Back pain Knee pain Home Medications ?Medication ?Instructions ?Recorded ?Last Taken ?Type cholecalciferol (vitamin D3) 25 25 mcg PO DAILY vitamin 07/25/20 Unknown History mcg (1,000 unit) capsule multivitamin (Multiple Vitamins 1 tab PO DAILY vitamin 07/25/20 Unknown History tablet) latanoprost 0.005 % eye drops 1 drp ophthalmic (eye) DAILY 12/02/20 Unknown History glaucoma tramadol 50 mg tablet 50 mg PO ONCE PRN pain 07/15/22 Unknown History vitamin B complex 1 tab PO DAILY vitamin 07/09/23 Unknown History rivaroxaban 20 mg tablet (Xarelto) 20 mg PO .COMPLEX #90 tabs 07/27/24 Unknown Rx furosemide 40 mg tablet 40 mg PO DAILY #90 tabs 07/28/24 Unknown Rx losartan 50 mg tablet 50 mg PO DAILY #90 tabs 07/28/24 Unknown Rx magnesium oxide 400 mg (241.3 mg 400 mg PO BID #180 tabs 07/28/24 Unknown Rx magnesium) tablet sotalol 120 mg tablet 120 mg PO BID #180 tabs 07/28/24 Unknown Rx spironolactone 25 mg tablet 25 mg PO DAILY #90 tabs 07/28/24 Unknown Rx Allergy/AdvReac Type Severity Reaction Status Date / Time Penicillins Allergy Anaphylaxis Verified 08/07/24 11:09 Sulfa (Sulfonamide Allergy Hives Verified 08/07/24 11:09 Antibiotics) Family History Father Cancer glioblastoma Mother No problems noted. Surgical History History of cholecystectomy (12/31/21) History of radiofrequency ablation procedure for cardiac arrhythmia (11/29/20) History of colonoscopy (04/27/20) History of left heart catheterization (11/16/19) History of cardioversion (12/25/20) History of total right knee replacement History of tonsillectomy and adenoidectomy History of knee surgery History of back surgery Social History household members: spouse and children housing: house Smoking Status: Never smoker alcohol intake: never what type of physical activity do you participate in: none do you feel safe at home: Yes ROS Constitutional Constitutional: Denies anorexia, change in weight, chills, fatigue, fever(s), malaise, night sweats or weakness Eyes Eyes: Denies blurry vision, change in vision, discharge from eye(s) or eye pain Cardiovascular Cardiovascular: Reports edema and palpitations; Denies chest pain or claudication Respiratory/Chest Respiratory/Chest: Reports shortness of breath with exertion; Denies cough, hemoptysis or shortness of breath at rest Gastrointestinal Gastrointestinal: Denies abdominal pain, constipation, diarrhea, hematemesis, hematochezia, melena, nausea or vomiting Genitourinary Genitourinary: Denies dysuria, hematuria, urinary frequency, urinary hesitancy, urinary incontinence or urinary urgency Musculoskeletal Musculoskeletal: Denies back pain, joint pain, joint stiffness, joint swelling, myalgias or neck pain Neurologic Neurologic: Denies abnormal gait, abnormal speech, dizziness, focal weakness, headache(s), loss of vision, numbness, other visual disturbances, paresthesias, syncope or tingling Psychiatric Psychiatric: Denies anxiety, cognitive impairment, depression, irritability, mood swings or suicidal ideation Endocrine Endocrinology: Denies change in body appearance, cold intolerance, excessive sweating, heat intolerance, polydipsia or polyuria Hematologic/Lymphatic Hematologic/Lymphatic: Denies none, anemia, easy bleeding, easy bruising or lymphadenopathy Allergic/Immunologic Allergic/Immunologic: Denies rhinitis, urticaria, eczemia or asthma Vital Signs Vital Signs Vital Signs: 08/07/24 11:09 08/07/24 11:25 08/07/24 12:08 Temperature 98.1 F Temperature Source Oral Pulse Rate 86 87 Respiratory Rate 16 19 H Respiratory Effort Short of Breath Labored Respiratory Depth Respiratory Pattern Blood Pressure 135/85 H 109/61 Blood Pressure Mean 101 77 Blood Pressure Source Blood Pressure Position Blood Pressure Location Pulse Ox 97 96 Oxygen Delivery Method Room Air Room Air 08/07/24 13:00 08/07/24 13:25 08/07/24 13:58 Temperature 98.9 F Temperature Source Pulse Rate 78 78 Respiratory Rate 13 13 Respiratory Effort Normal Respiratory Depth Normal Respiratory Pattern Normal Blood Pressure 117/51 L 117/51 L Blood Pressure Mean 73 73 Blood Pressure Source Blood Pressure Position Blood Pressure Location Pulse Ox 98 98 Oxygen Delivery Method Room Air 08/07/24 14:25 08/07/24 14:25 Temperature 97.8 F 97.8 F Temperature Source Oral Oral Pulse Rate 79 79 Respiratory Rate 16 16 Respiratory Effort Respiratory Depth Respiratory Pattern Blood Pressure 113/69 113/69 Blood Pressure Mean 83 83 Blood Pressure Source Monitor Blood Pressure Position Supine Blood Pressure Location Right Forearm Pulse Ox 99 99 Oxygen Delivery Method Room Air Room Air Weight Weight: 200.941 kg Body Mass Index (BMI) 52.5 Physical Exam Const alert, oriented x3 and no apparent distress Constitutional Narrative: Patient has class III obesity General Appearance: cooperative, well kempt and well developed Orientation / Consciousness: awake, oriented to person, oriented to place and oriented to time HEENT normocephalic, head/scalp atraumatic, hearing grossly normal bilaterally and moist oral mucous membranes Eyes PERRL, EOMs intact bilaterally and conjunctivae normal Neck supple, no JVD, thyroid normal and no carotid bruits General: trachea midline Resp normal respiratory effort, no retractions and clear to auscultation bilaterally Auscultation: Negative for rales, rhonchi or wheezes Cardio no murmurs, no rub and no gallops Cardio Narrative: Heart rate and rhythm is irregular GI normal to inspection, nondistended, normoactive bowel sounds, soft to palpation, non-tender and non-distended Extremity Extremity Narrative: Generalized lower leg edema is noted bilaterally Skin Skin Narrative: Patient has bilateral lower leg skin changes/lymphedema, there is redness noted of the right lateral thigh extending into the proximal right lower leg, this area is tender to palpation and warm to the touch Neuro oriented x3, CN's II-XII intact bilaterally, moves all extremities, no focal motor deficits and no sensory deficits noted Sensorium / Orientation: awake and alert Speech: speech normal Psych affect normal Results Lab / Micro Data 08/08/24 06:08 08/08/24 06:08 Labs: Laboratory Results - last 24 hr 08/07/24 11:24: WBC 11.8 H, RBC 4.58 L, Hgb 14.6, Hct 42.5, MCV 92.8, MCH 31.9, MCHC 34.4, RDW Std Deviation 44.8 H, RDW Coeff of Mariana 13.2, Plt Count 165, MPV 9.7, Immature Gran % (Auto) 0.400, Neut % (Auto) 76.2 H, Lymph % (Auto) 14.0 L, Sibley % (Auto) 8.6, Eos % (Auto) 0.5, Baso % (Auto) 0.3, Absolute Neuts (auto) 9.0 H, Absolute Lymphs (auto) 1.65, Nucleated RBC % 0, Sodium 135, Potassium 3.5, Chloride 100, Carbon Dioxide 21.5, Anion Gap 14, BUN 18, Creatinine 0.81, Estim Creat Clear Calc 163.39, Est GFR (MDRD) Non-Af 96, BUN/Creatinine Ratio 21.6 H, Glucose 99, Calcium 9.3, Troponin T High Sens 9, NT pro BNP II 706 08/07/24 11:54: Lactic Acid 1.6 08/07/24 13:30: Troponin T Hi Sens 2 Hr 8 Micro: Microbiology 08/07/24 11:57 Mucosa - Nose SARS-CoV-2, Influenza & RSV (PCR) - Final Imaging Radiology Impression Brain CT 08/07/24 11:46 IMPRESSION: No acute process detected. Reading [facility] Chest X-Ray 08/07/24 12:12 IMPRESSION: No Acute Findings. Moderate cardiomegaly. Reading Location: [facility] Assessment & Plan Assessment/Plan (1) Exertional dyspnea: PLAN: Plan 1. Right leg cellulitis-patient will be admitted to [facility], he will be given IV clindamycin and monitored. #2 exertional dyspnea-probably due to anasarca, patient will be given IV Lasix #3 atrial fibrillation-patient is on anticoagulation and sotalol #4 class III obesity-complicates care, management, recovery, prognosis Total clinical time spent by myself addressing the patient's medical issues, reviewing all of his data, and collaborating with patient's care team: 75 minutes Charges/Coding Visit Charges Inpatient E&M: 93185 Init Hosp L3
[2024-08-07 15:57] LABS: Troponin T High Sens 4 HR 17 ng/L (<=22)
[2024-08-07] MEDS: 0.9% Saline Lock 10 ML Syringe IV ×2 (18:04→22:21)
[2024-08-07] MEDS: Rivaroxaban 20 MG Tablet PO (18:04)
[2024-08-07] MEDS: Magnesium Chloride 64 MG Delay Rel.Tablet 128 MG PO (22:12)
[2024-08-07] MEDS: Sotalol Hydrochloride 80 MG Tablet 120 MG PO (22:12)
[2024-08-07] MEDS: Clindamycin 600 MG/50 ML BAG 100 MG IV (22:13)
[2024-08-07] MEDS: 0.9% Normal Saline (250mL Bag) 250 ML 15 ML IV (22:21)
[2024-08-08 01:52] VITALS: BP 110/60; PULSE 66; RESP 18; TEMP 36.8; O2SAT 97
[2024-08-08] MEDS: BENZOCAINE/MENTHOL 1 LOZENGE MUCOUS MEM ×4 (01:57→21:17)
[2024-08-08 06:32] LABS: Absolute Lymphocyte Count 1.91 X10^3/uL (0.83-4.51); Absolute Neutrophil Count 7.2 X10^3/uL (2.0-7.7); Basophil# 0.05 X10^3/uL; Basophil% 0.5 % (0-1); Eosinophil# 0.08 X10^3/uL; Eosinophils% 0.8 % (0-5); Hematocrit 38.4 % (40-54); Hemoglobin 13.1 g/dL (13.0-16.5); Lymphocyte # 1.91 X10^3/ul (0.83-4.51); Lymphocyte % 18.1 % (19-41); Mean Corp Hgb Conc 34.1 g/dL (32-36); Mean Corpuscular Hgb 31.8 pg (27.0-32.0); Mean Corpuscular Volume 93.2 fL (80-94); Mean Platelet Vol. 9.3 fl (6.2-12.0); Monocyte% 11.4 % (0-10); NRBC Flagged by Analyzer 0 % (0-5); Neutrophil # 7.21 X10^3/uL (2.7-7.7); Neutrophil % 68.4 % (47-70); Platelet Count 138 K/mm3 (150-450); RBC Distribution Width CV 13.2 % (11.6-14.6); RBC Distribution Width SD 44.9 fl (35.1-43.9); Red Blood Count 4.12 M/mm3 (4.6-6.2); White Blood Count 10.5 K/mm3 (4.4-11.0)
[2024-08-08] MEDS: Clindamycin 600 MG/50 ML BAG 100 MG IV ×3 (06:37→21:17)
[2024-08-08 07:20] LABS: Anion Gap 11 (5-15); BUN 15 mg/dL (4-19); BUN/Creat Ratio 16.3 RATIO (10-20); Calcium,Total 8.8 mg/dL (7.6-11.0); Carbon Dioxide 27.3 mmol/L (21.0-32.0); Chloride 100 mmol/L (98-108); Creatinine, Serum 0.94 mg/dL (0.70-1.20); EST Glomerular Filtration Rate 89 (>60); Estimated Creatinine Clearance 144.36 ml/min (50-250); Glucose 116 mg/dL (70-99); Potassium 3.4 mmol/L (3.3-5.1); Sodium Level 138 mmol/L (133-145)
[2024-08-08 07:52] VITALS: O2SAT 96
[2024-08-08 08:48] VITALS: BP 98/58; PULSE 77; RESP 16; TEMP 35.9; O2SAT 95
[2024-08-08] MEDS: Furosemide 40 MG/4 ML Vial IV ×2 (09:00→15:50)
[2024-08-08] MEDS: Magnesium Chloride 64 MG Delay Rel.Tablet 128 MG PO ×2 (09:01→21:15)
[2024-08-08] MEDS: 0.9% Saline Lock 10 ML Syringe IV ×4 (09:01→21:16)
[2024-08-08] MEDS: Sotalol Hydrochloride 80 MG Tablet 120 MG PO ×2 (09:01→21:15)
[2024-08-08] MEDS: Spironolactone 25 MG Tablet PO (09:01)
[2024-08-08] MEDS: Latanoprost 0.005% 1 Bottle 1 DRP OPHTHALMIC (09:03)
[2024-08-08] MEDS: Losartan Potassium 50 MG Tablet PO (09:03)
[2024-08-08 09:04] VITALS: BP 103/62; PULSE 72
[2024-08-08] MEDS: Acetaminophen 325 MG Tablet 650 MG PO ×2 (11:06→21:16)
[2024-08-08] MEDS: traMADol 50 MG Tablet PO (12:21)
--- NOTE | 2024-08-08 13:05 | CASEMGMT ---
BABAK ARORA Assessment Face to Face with patient for initial transition planning/care coordination assessment. BABAK ARORA introduced self and role at [facility], pt voices understanding. Pt is A&Ox4 and is resting comfortably in bed and is calm. Care providers, pharmacy, and demographics verified. Admitting dx: Cellulitis LACE Strata: 1 PCP: Omid Colindres Specialists: Kye (Pulmonary), Nichole CRAWFORD (PM) Preferred Pharmacy: [facility] Insurance: [employer], MCR A Prescription Benefit: Yes LNOK: Homa (W)Mary (Daughter) Living Arrangements: Pt lives with his in a 2 story home with a FFSU and 3 steps to enter ADLs/IADLs: Indep Transportation: Self, DME: CPAP @ HS with no additional oxygen. Cane and FWW HHC/SNF: Denies Pt?s goal: Home Plan: Home, anticipate no additional needs e/f wound care. Follow pending wound RN consult. Pt was educated about the C if it is warranted. At this time, the pt denies the need and states that he will be able to care for this himself and with the help of his at home. Pt denies HH or OP therapy needs. Pt states that he feels safe with this plan and denies further questions or concerns. Report given to GALINA HILLIARD CM. Jo Alexis RN, CM
[2024-08-08 14:32] VITALS: BP 117/80; PULSE 64; RESP 17; TEMP 36.9; O2SAT 95
[2024-08-08] MEDS: Rivaroxaban 20 MG Tablet PO (15:50)
--- NOTE | 2024-08-08 19:28 | PN.HOSP_ITS ---
Reason for Visit Reason for Visit: Diagnoses Other forms of dyspnea (08/07/24) Subjective Subjective Patient was seen and examined today, he still has tenderness and redness over his right thigh area and right proximal lower leg. Patient states that he is urinating frequently, he continues to have edema however in the lower extremities. Objective Data Objective Data Vital Signs: Vital Signs Temp Pulse Resp BP Pulse Ox O2 Del Method 98.4 F 64 17 117/80 95 Room Air 08/08/24 14:32 08/08/24 14:32 08/08/24 14:32 08/08/24 14:32 08/08/24 14:32 08/08/24 14:32 Oxygen Delivery Method Room Air Weight: 200.941 kg Body Mass Index (BMI) 52.5 Intake & Output: Intake and Output for Last 24 Hours 08/06/24 08/07/24 08/08/24 23:59 23:59 23:59 Intake Total 550 / 1050 1051.5 / 1051.5 Balance 550 / 1050 1051.5 / 1051.5 Lab / Micro Data 08/08/24 06:08 08/08/24 06:08 Labs: Laboratory Results - last 24 hr 08/08/24 06:08: WBC 10.5, RBC 4.12 L, Hgb 13.1, Hct 38.4 L, MCV 93.2, MCH 31.8, MCHC 34.1, RDW Std Deviation 44.9 H, RDW Coeff of Mariana 13.2, Plt Count 138 L, MPV 9.3, Immature Gran % (Auto) 0.800, Neut % (Auto) 68.4, Lymph % (Auto) 18.1 L, M xavier % (Auto) 11.4 H, Eos % (Auto) 0.8, Baso % (Auto) 0.5, Absolute Neuts (auto) 7.2, Absolute Lymphs (auto) 1.91, Nucleated RBC % 0, Sodium 138, Potassium 3.4, Chloride 100, Carbon Dioxide 27.3, Anion Gap 11, BUN 15, Creatinine 0.94, Estim Creat Clear Calc 144.36, Est GFR (MDRD) Non-Af 89, BUN/Creatinine Ratio 16.3, G lucose 116 H, Calcium 8.8 Micro: Microbiology 08/07/24 11:57 Mucosa - Nose SARS-CoV-2, Influenza & RSV (PCR) - Final Physical Exam Narrative alert, oriented x3 and no apparent distress Constitutional Narrative: Patient has class III obesity General Appearance: cooperative, well kempt and well developed Orientation / Consciousness: awake, oriented to person, oriented to place and oriented to time HEENT normocephalic, head/scalp atraumatic, hearing grossly normal bilaterally and moist oral mucous membranes Eyes PERRL, EOMs intact bilaterally and conjunctivae normal Neck supple, no JVD, thyroid normal and no carotid bruits General: trachea midline Resp normal respiratory effort, no retractions and clear to auscultation bilaterally Auscultation: Negative for rales, rhonchi or wheezes Cardio no murmurs, no rub and no gallops Cardio Narrative: Heart rate and rhythm is irregular GI normal to inspection, nondistended, normoactive bowel sounds, soft to palpation, non-tender and non-distended Extremity Extremity Narrative: Generalized lower leg edema is noted bilaterally Skin Skin Narrative: Patient has bilateral lower leg skin changes/lymphedema, there is redness noted of the right lateral thigh extending into the proximal right lower leg, this area is tender to palpation and warm to the touch Neuro oriented x3, CN's II-XII intact bilaterally, moves all extremities, no focal motor deficits and no sensory deficits noted Sensorium / Orientation: awake and alert Speech: speech normal Psych affect normal Assessment & Plan Assessment/Plan (1) Cellulitis of leg, right: (2) Exertional dyspnea: PLAN: Plan 1. Right leg cellulitis-patient will continue IV clindamycin, he will be transition to [facility] as an outpatient #2 exertional dyspnea-probably due to anasarca, patient will continue IV Lasix #3 atrial fibrillation-patient is on anticoagulation and sotalol #4 class III obesity-complicates care, management, recovery, prognosis Total clinical time spent by myself addressing the patient's medical issues, reviewing all of his data, and collaborating with patient's care team: 35 minutes Charges/Coding Visit Charges Inpatient E&M: 74427 Subs Hosp L2
[2024-08-08 20:58] VITALS: BP 107/83; PULSE 77; RESP 16; TEMP 36.6; O2SAT 98
[2024-08-09] VITALS (7 sets, daily range): BP systolic 95–131; BP diastolic 60–65; PULSE 62–84; RESP 16–18; TEMP 36.4–36.6; O2SAT 93–98
[2024-08-09] MEDS: Acetaminophen 325 MG Tablet 650 MG PO ×3 (05:16→17:10)
[2024-08-09] MEDS: Clindamycin 600 MG/50 ML BAG 100 MG IV ×3 (05:16→20:31)
[2024-08-09] MEDS: 0.9% Saline Lock 10 ML Syringe IV ×5 (05:17→20:31)
[2024-08-09 07:45] LABS: Anion Gap 11 (5-15); BUN 17 mg/dL (4-19); BUN/Creat Ratio 18.4 RATIO (10-20); Calcium,Total 8.6 mg/dL (7.6-11.0); Carbon Dioxide 25.2 mmol/L (21.0-32.0); Chloride 100 mmol/L (98-108); Creatinine, Serum 0.91 mg/dL (0.70-1.20); EST Glomerular Filtration Rate 92 (>60); Estimated Creatinine Clearance 149.12 ml/min (50-250); Glucose 111 mg/dL (70-99); Potassium 3.6 mmol/L (3.3-5.1); Sodium Level 136 mmol/L (133-145)
[2024-08-09] MEDS: Cefdinir 300 MG Capsule PO (09:23)
[2024-08-09] MEDS: Losartan Potassium 50 MG Tablet PO (09:24)
[2024-08-09] MEDS: Magnesium Chloride 64 MG Delay Rel.Tablet 128 MG PO ×2 (09:24→21:38)
[2024-08-09] MEDS: Sotalol Hydrochloride 80 MG Tablet 120 MG PO ×2 (09:24→21:38)
[2024-08-09] MEDS: Furosemide 40 MG/4 ML Vial IV ×2 (09:25→17:54)
[2024-08-09] MEDS: Spironolactone 25 MG Tablet PO (09:25)
[2024-08-09] MEDS: Latanoprost 0.005% 1 Bottle 1 DRP OPHTHALMIC (09:29)
[2024-08-09] MEDS: Bisacodyl 5 MG Tablet PO (11:48)
--- NOTE | 2024-08-09 13:28 | CASEMGMT ---
Social Work- SW met with pt per pt request to complete advanced directives. Pt named , Homa, as primary agent, and daughters Mary and Sharita, as alternate agents. SW placed a copy on chart, provided pt with copies for agents and original. Pt reports no other needs at this time. JOHANNA Kong
[2024-08-09] MEDS: Rivaroxaban 20 MG Tablet PO (17:10)
--- NOTE | 2024-08-09 19:09 | PCM.PN.HOSP ---
Reason for Visit Reason for Visit: Diagnoses Cellulitis of right lower limb (08/07/24) Other forms of dyspnea (08/07/24) Subjective Subjective Patient was seen and examined today, I gave him a dose of cefdinir today and he had no reaction to the medication. Patient's right leg redness appears to be improved but he still having quite a bit of leg edema bilaterally. I have decided to place him on a continuous Lasix drip today. I talked briefly with him in the presence of his daughter who was there visiting him today. Objective Data Objective Data Vital Signs: Vital Signs Temp Pulse Resp BP Pulse Ox O2 Del Method 97.8 F 70 16 120/64 97 Room Air 08/09/24 14:05 08/09/24 18:36 08/09/24 14:05 08/09/24 18:36 08/09/24 18:36 08/09/24 18:36 Oxygen Delivery Method Room Air Weight: 200.941 kg Body Mass Index (BMI) 52.5 Intake & Output: Intake and Output for Last 24 Hours 08/07/24 08/08/24 08/09/24 23:59 23:59 23:59 Intake Total 550 / 1050 1601.5 / 1601.5 1050 / 1050 Output Total 100 / 100 Balance 550 / 1050 1601.5 / 1601.5 950 / 950 Lab / Micro Data 08/08/24 06:08 08/09/24 06:50 Labs: Laboratory Results - last 24 hr 08/09/24 06:50: Sodium 136, Potassium 3.6, Chloride 100, Carbon Dioxide 25.2, Anion Gap 11, BUN 17, Creatinine 0.91, Estim Creat Clear Calc 149.12, Est GFR (MDRD) Non-Af 92, BUN/Creatinine Ratio 18.4, Glucose 111 H, Calcium 8.6 Micro: Microbiology 08/07/24 11:54 Blood Culture (Wb) - Left Forearm Blood Culture - Preliminary No growth in 48 hours. 08/07/24 12:03 Blood Culture (Wb) - Left Forearm Blood Culture - Preliminary No growth in 48 hours. 08/07/24 11:57 Mucosa - Nose SARS-CoV-2, Influenza & RSV (PCR) - Final Physical Exam Narrative alert, oriented x3 and no apparent distress Constitutional Narrative: Patient has class III obesity General Appearance: cooperative, well kempt and well developed Orientation / Consciousness: awake, oriented to person, oriented to place and oriented to time HEENT normocephalic, head/scalp atraumatic, hearing grossly normal bilaterally and moist oral mucous membranes Eyes PERRL, EOMs intact bilaterally and conjunctivae normal Neck supple, no JVD, thyroid normal and no carotid bruits General: trachea midline Resp normal respiratory effort, no retractions and clear to auscultation bilaterally Auscultation: Negative for rales, rhonchi or wheezes Cardio no murmurs, no rub and no gallops Cardio Narrative: Heart rate and rhythm is irregular GI normal to inspection, nondistended, normoactive bowel sounds, soft to palpation, non-tender and non-distended Extremity Extremity Narrative: Generalized lower leg edema is noted bilaterally Skin Skin Narrative: Patient has bilateral lower leg skin changes/lymphedema, there is redness noted of the right lateral thigh extending into the proximal right lower leg, this area is tender to palpation and warm to the touch Neuro oriented x3, CN's II-XII intact bilaterally, moves all extremities, no focal motor deficits and no sensory deficits noted Sensorium / Orientation: awake and alert Speech: speech normal Psych affect normal Assessment & Plan Assessment/Plan (1) Cellulitis of leg, right: (2) Exertional dyspnea: PLAN: Plan 1. Right leg cellulitis-patient will continue IV clindamycin, he will be transition to [facility] as an outpatient #2 exertional dyspnea-probably due to anasarca, patient will continue IV Lasix with continuous drip #3 atrial fibrillation-patient is on anticoagulation and sotalol #4 class III obesity-complicates care, management, recovery, prognosis #5 anasarca-patient will be placed on a Lasix drip Total clinical time spent by myself addressing the patient's medical issues, reviewing all of his data, and collaborating with patient's care team: 35 minutes Charges/Coding Visit Charges Inpatient E&M: 04825 Subs Hosp L2
[2024-08-09] MEDS: Furosemide 500 MG in Empty Viaflex 50 mL 1 EACH CONT INF (21:38)
[2024-08-10] MEDS: Clindamycin 600 MG/50 ML BAG 100 MG IV (05:55)
[2024-08-10 06:02] VITALS: BP 95/50; PULSE 67; RESP 18; TEMP 36.8; O2SAT 97
[2024-08-10] MEDS: Acetaminophen 325 MG Tablet 650 MG PO (06:08)
[2024-08-10 06:39] LABS: Anion Gap 13 (5-15); BUN 18 mg/dL (4-19); BUN/Creat Ratio 20.4 RATIO (10-20); Calcium,Total 8.7 mg/dL (7.6-11.0); Carbon Dioxide 24.1 mmol/L (21.0-32.0); Chloride 100 mmol/L (98-108); Creatinine, Serum 0.87 mg/dL (0.70-1.20); EST Glomerular Filtration Rate 95 (>60); Estimated Creatinine Clearance 155.97 ml/min (50-250); Glucose 114 mg/dL (70-99); Potassium 3.3 mmol/L (3.3-5.1); Sodium Level 137 mmol/L (133-145)
[2024-08-10] MEDS: Latanoprost 0.005% 1 Bottle 1 DRP OPHTHALMIC (07:58)
[2024-08-10] MEDS: Sotalol Hydrochloride 80 MG Tablet 120 MG PO (07:59)
[2024-08-10] MEDS: Magnesium Chloride 64 MG Delay Rel.Tablet 128 MG PO (08:00)
[2024-08-10] MEDS: Spironolactone 25 MG Tablet PO (08:00)
[2024-08-10] MEDS: Losartan Potassium 50 MG Tablet PO (08:01)
[2024-08-10 09:49] VITALS: BP 112/79; PULSE 72; RESP 18; TEMP 36.4; O2SAT 95
--- NOTE | 2024-08-10 11:50 | DCINST_ITS ---
Discharge Instructions Diet Discharge Diet: No restrictions DC O2, CPAP, BIPAP needs Home O2 Discharge instructions: No Dressing / Incision Discharge Activity: Return to Normal Activity Weight Bearing Status: Full weight bearing Follow Up Care Test Results: Test results from this visit will be discussed in further detail at your follow- up appointment, if applicable. Discharge Plan Admission Admit Date/Time: 08/07/24 12:56 Primary Reason for Your Visit: anasarca celluitis of right leg Attending Provider: Seb Cortes Primary Care Provider: Omid Colindres Discharge Orders/Prescriptions Prescriptions: New furosemide [Lasix] 40 mg tablet 60 mg PO BID Qty: 90 1RF potassium chloride [Klor-Con 10] 10 mEq tablet extended release 20 meq PO DAILY Qty: 60 0RF cefdinir 300 mg capsule 300 mg PO BID Qty: 14 0RF Rx Instructions: start today Continued multivitamin [Multiple Vitamins] Tablet 1 tab PO DAILY cholecalciferol (vitamin D3) 25 mcg (1,000 unit) capsule 25 mcg PO DAILY tramadol 50 mg tablet 50 mg PO ONCE PRN (Reason: pain) Rx Instructions: Takes 4 times daily as needed vitamin B complex Tablet 1 tab PO DAILY latanoprost 0.005 % drops 1 drp ophthalmic (eye) DAILY Xarelto 20 mg tablet 20 mg PO .COMPLEX Qty: 90 3RF Rx Instructions: 20 mg orally every evening with food: Fax to [facility]: losartan 50 mg tablet 50 mg PO DAILY Qty: 90 3RF magnesium oxide 400 mg (241.3 mg magnesium) tablet 400 mg PO BID Qty: 180 3RF sotalol 120 mg tablet 120 mg PO BID Qty: 180 3RF spironolactone 25 mg tablet 25 mg PO DAILY Qty: 90 3RF Discontinued furosemide 40 mg tablet 40 mg PO DAILY Qty: 90 3RF Referrals / Follow Up: Terell Shore MD [Med Staff - Active Staff] - See Referral Note (At scheduled appointment time) Omid Colindres MD [Primary Care Provider] - Madison Muse [Emergency Nurse] - Disposition Disposition (needs filled in before D/C Order can be placed): Home, Self Care
--- NOTE | 2024-08-10 12:06 | DS.PCM_ITS ---
Providers Date of Admission: 08/07/24 Date of Discharge: 08/10/24 Primary Care Physician: Dr. Omid Colindres MD Reason For Visit: CELLULITIS Diagnosis Discharge Diagnosis (1) Cellulitis of leg, right: Status: Acute Code(s): L03.115 - Cellulitis of right lower limb (2) Exertional dyspnea: Status: Acute Code(s): R06.09 - Other forms of dyspnea Plan 1. Right leg cellulitis-patient will continue IV clindamycin, he will be transition to [facility] as an outpatient #2 exertional dyspnea-probably due to anasarca, patient will continue IV Lasix with continuous drip #3 atrial fibrillation-patient is on anticoagulation and sotalol #4 class III obesity-complicates care, management, recovery, prognosis #5 anasarca-patient will be placed on a Lasix drip Total clinical time spent by myself addressing the patient's medical issues, reviewing all of his data, and collaborating with patient's care team: 35 minutes Medications at Discharge Home Medications cholecalciferol (vitamin D3) 25 mcg (1,000 unit) capsule 25 mcg PO DAILY vitamin 07/25/20 multivitamin (Multiple Vitamins tablet) 1 tab PO DAILY vitamin 07/25/20 latanoprost 0.005 % eye drops 1 drp ophthalmic (eye) DAILY glaucoma 12/02/20 tramadol 50 mg tablet 50 mg PO ONCE PRN pain 07/15/22 vitamin B complex 1 tab PO DAILY vitamin 07/09/23 rivaroxaban 20 mg tablet (Xarelto) 20 mg PO .COMPLEX #90 tabs 07/27/24 losartan 50 mg tablet 50 mg PO DAILY #90 tabs 07/28/24 magnesium oxide 400 mg (241.3 mg magnesium) tablet 400 mg PO BID #180 tabs 07/28/24 sotalol 120 mg tablet 120 mg PO BID #180 tabs 07/28/24 spironolactone 25 mg tablet 25 mg PO DAILY #90 tabs 07/28/24 cefdinir 300 mg capsule 300 mg PO BID #14 caps 08/10/24 furosemide 40 mg tablet (Lasix) 60 mg (1.5 x 40 mg) PO BID #90 tabs 08/10/24 potassium chloride 10 mEq tablet,extended release (Klor-Con) 20 meq (2 x 10 mEq) PO DAILY #60 tabs 08/10/24 Hospital Course Operations None Procedures None Summary of Care Provided Minutes Spent on Discharge: 32 Hospital Course: This 69-year-old white male was seen in the emergency room at [facility] with chief complaint of shortness of breath and redness of his skin over the right lateral thigh area. Labs showed a slightly elevated white blood cell count at 11.8, chemistry profile was unremarkable. Examination of the patient's lower legs revealed marked edema, there was redness over the patient's right lateral thigh area on the right extending to the area just below the right knee. Patient was admitted to [place] [address] and placed on IV Lasix for his anasarca and IV vancomycin. Over the next several days, patient's leg redness improved but he continued to have problems with peripheral edema below the knees. 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 On 08/10/2024, patient was seen and examined:alert, oriented x3 and no apparent distress Constitutional Narrative: Patient has class III obesity General Appearance: cooperative, well kempt and well developed Orientation / Consciousness: awake, oriented to person, oriented to place and oriented to time HEENT normocephalic, head/scalp atraumatic, hearing grossly normal bilaterally and moist oral mucous membranes Eyes PERRL, EOMs intact bilaterally and conjunctivae normal Neck supple, no JVD, thyroid normal and no carotid bruits General: trachea midline Resp normal respiratory effort, no retractions and clear to auscultation bilaterally Auscultation: Negative for rales, rhonchi or wheezes Cardio no murmurs, no rub and no gallops Cardio Narrative: Heart rate and rhythm is irregular GI normal to inspection, nondistended, normoactive bowel sounds, soft to palpation, non-tender and non-distended Extremity Extremity Narrative: Generalized lower leg edema is noted bilaterally Skin Skin Narrative: Patient has bilateral lower leg skin changes/lymphedema, there is redness noted of the right lateral thigh extending into the proximal right lower leg, this area is tender to palpation and warm to the touch Neuro oriented x3, CN's II-XII intact bilaterally, moves all extremities, no focal motor deficits and no sensory deficits noted Sensorium / Orientation: awake and alert Speech: speech normal Psych affect normal Patient was discharged in stable condition on 08/10/2024. Weight / BMI Weight Weight: 200.941 kg Body Mass Index (BMI) 52.5 ABG / Lab / Microbiology Data 08/08/24 06:08 08/10/24 05:40 Laboratory: Laboratory Results - last 24 hr 08/10/24 05:40: Sodium 137, Potassium 3.3, Chloride 100, Carbon Dioxide 24.1, Anion Gap 13, BUN 18, Creatinine 0.87, Estim Creat Clear Calc 155.97, Est GFR (MDRD) Non-Af 95, BUN/Creatinine Ratio 20.4 H, Glucose 114 H, Calcium 8.7 Microbiology: Microbiology 08/07/24 11:54 Blood Culture (Wb) - Left Forearm Blood Culture - Final No growth in 5 days. 08/07/24 12:03 Blood Culture (Wb) - Left Forearm Blood Culture - Final No growth in 5 days. 08/07/24 11:57 Mucosa - Nose SARS-CoV-2, Influenza & RSV (PCR) - Final D/C Instructions Discharge Diet: No restrictions Weight Bearing Status: Full weight bearing DC O2, CPAP, BIPAP Needs Home O2 Discharge instructions: No Meaningful Use Info Meaningful Use Meaningful Use Diagnoses (Choose all that apply): None applicable Ischemic Stroke Statin Dosing Therapy Reference: STATIN DOSE THERAPY REFERENCE: * Patients > 75 years receive moderate or high dose statin therapy. * Patients 75 years or YOUNGER should receive HIGH intensity statin dose unless contraindicated. You will be required to document reason for non-treatment if statin daily dose does not meet guidelines. HIGH DOSE STATIN THERAPY DAILY Atorvastatin > than or = to 40 mg Rosuvastatin > than or = to 20 mg Amlodipine + Atorvastatin > than or = to 2.5/40 mg Ezetimibe + Simvastatin 10/80 mg Simvastatin 80mg Discharge Plan Admission Admit Date/Time: 08/07/24 12:56 Primary Reason for Your Visit: anasarca celluitis of right leg Attending Provider: Seb Cortes Primary Care Provider: Omid Colindres Discharge Orders/Prescriptions Prescriptions: New furosemide [Lasix] 40 mg tablet 60 mg PO BID Qty: 90 1RF potassium chloride [Klor-Con 10] 10 mEq tablet extended release 20 meq PO DAILY Qty: 60 0RF cefdinir 300 mg capsule 300 mg PO BID Qty: 14 0RF Rx Instructions: start today Continued multivitamin [Multiple Vitamins] Tablet 1 tab PO DAILY cholecalciferol (vitamin D3) 25 mcg (1,000 unit) capsule 25 mcg PO DAILY tramadol 50 mg tablet 50 mg PO ONCE PRN (Reason: pain) Rx Instructions: Takes 4 times daily as needed vitamin B complex Tablet 1 tab PO DAILY latanoprost 0.005 % drops 1 drp ophthalmic (eye) DAILY Xarelto 20 mg tablet 20 mg PO .COMPLEX Qty: 90 3RF Rx Instructions: 20 mg orally every evening with food: Fax to [facility]: losartan 50 mg tablet 50 mg PO DAILY Qty: 90 3RF magnesium oxide 400 mg (241.3 mg magnesium) tablet 400 mg PO BID Qty: 180 3RF sotalol 120 mg tablet 120 mg PO BID Qty: 180 3RF spironolactone 25 mg tablet 25 mg PO DAILY Qty: 90 3RF Discontinued furosemide 40 mg tablet 40 mg PO DAILY Qty: 90 3RF Referrals / Follow Up: Terell Shore MD [Med Staff - Active Staff] - See Referral Note (At scheduled appointment time) Omid Colindres MD [Primary Care Provider] - Madison Muse [Emergency Nurse] - Disposition Disposition (needs filled in before D/C Order can be placed): Home, Self Care Charges/Coding Visit Charges Inpatient E&M: 45897 Disch Hosp >30min
[2024-08-10] MEDS: BENZOCAINE/MENTHOL 1 LOZENGE MUCOUS MEM (13:56)
[2024-08-10 14:05] VITALS: BP 118/82; PULSE 78; RESP 18; TEMP 36.6; O2SAT 100
== END 2024-08-10 14:53 | disposition home or self-care (01) | DRG 603 ==
LOC: ED 12:48 → MS3 13:09
PROVIDERS: Admitting Provider Internal Medicine; Emergency Provider Emergency Medicine; PCP Family Medicine; Referring Provider Emergency Medicine; Visit Provider Internal Medicine
DX: L03.115 Cellulitis of right lower limb (principal); Z68.43 Body mass index [BMI] 50.0-59.9, adult; I48.91 Unspecified atrial fibrillation; G47.31 Primary central sleep apnea; E66.813 Obesity, class 3; I10 Essential (primary) hypertension; E78.5 Hyperlipidemia, unspecified; Z79.891 Long term (current) use of opiate analgesic; Z86.16 Personal history of COVID-19; Z99.89 Dependence on other enabling machines and devices; Z86.73 Personal history of transient ischemic attack (TIA), and cerebral infarction without residual deficits; Z86.711 Personal history of pulmonary embolism; Z90.49 Acquired absence of other specified parts of digestive tract; R60.1 Generalized edema; Z79.01 Long term (current) use of anticoagulants; R06.09 Other forms of dyspnea
CPT/HCPCS: 36415; 70450; 71045; 80048; 83605; 83880; 84484; 85025; 87040; 87631; 93005; 99283; A4216; J1938

== ENCOUNTER → 2024-08-16 | Outpatient (CLI) | payer OTHER, SELFPAY ==
[2024-08-16 12:01] LABS: Absolute Lymphocyte Count 2.37 X10^3/uL (0.83-4.51); Absolute Neutrophil Count 5.8 X10^3/uL (2.0-7.7); Basophil# 0.07 X10^3/uL; Basophil% 0.8 % (0-1); Eosinophil# 0.17 X10^3/uL; Eosinophils% 1.9 % (0-5); Hematocrit 42.8 % (40-54); Hemoglobin 14.7 g/dL (13.0-16.5); Lymphocyte # 2.37 X10^3/ul (0.83-4.51); Mean Corp Hgb Conc 34.3 g/dL (32-36); Mean Corpuscular Hgb 32.2 pg (27.0-32.0); Mean Corpuscular Volume 93.9 fL (80-94); Mean Platelet Vol. 9.1 fl (6.2-12.0); Monocyte# 0.67 X10^3/uL; Monocyte% 7.3 % (0-10); NRBC Flagged by Analyzer 0 % (0-5); Neutrophil # 5.81 X10^3/uL (2.7-7.7); Neutrophil % 63.6 % (47-70); Platelet Count 298 K/mm3 (150-450); RBC Distribution Width CV 12.8 % (11.6-14.6); Red Blood Count 4.56 M/mm3 (4.6-6.2); White Blood Count 9.1 K/mm3 (4.4-11.0)
[2024-08-16 12:27] LABS: Anion Gap 12 (5-15); BUN 19 mg/dL (4-19); BUN/Creat Ratio 20.7 RATIO (10-20); Calcium,Total 9.3 mg/dL (7.6-11.0); Carbon Dioxide 25.5 mmol/L (21.0-32.0); Chloride 100 mmol/L (98-108); Creatinine, Serum 0.92 mg/dL (0.70-1.20); EST Glomerular Filtration Rate 92 (>60); Glucose 118 mg/dL (70-99); Potassium 3.9 mmol/L (3.3-5.1); Sodium Level 138 mmol/L (133-145)
== END | disposition home or self-care (01) ==
LOC: LAB 11:16
PROVIDERS: PCP Family Medicine; Referring Provider Nurse Practitioner Gerontology; Visit Provider Nurse Practitioner Gerontology
DX: I48.91 Unspecified atrial fibrillation (principal)
CPT/HCPCS: 36415; 80048; 85025

== ENCOUNTER → 2024-08-16 | Outpatient (CLI) | payer OTHER, SELFPAY ==
--- NOTE | 2024-08-16 13:16 | VDLE_ITS ---
Reason For Study Reason For Study: RLE Edema RIGHT LEFT GSV is normal. FV is compressible, spontaneous, phasic, competent CFV is compressible, spontaneous, phasic, competent and demonstrates normal augmentation. and demonstrates normal augmentation. FV is compressible, spontaneous, phasic, competent and demonstrates normal augmentation. POP V is compressible, spontaneous, phasic, competent and demonstrates normal augmentation. T/P Trunk is compressible. PTV is compressible. RT PerV is compressible. Procedure This is a venous duplex using B-mode, color flow and spectral Doppler. Exam performed in department. The exam was diagnostic. A preliminary report was called and/or faxed to [facility]. VL/Venous Duplex US, Unilateral Interpretation Summary Deep veins of the right lower extremity are patent and compressible segmentally . There is no evidence of right lower extremity deep vein thrombosis. Valvular competence appears intact within the p roximal deep venous system on the right . The right great saphenous vein appears patent and compressible segmentally. The left femoral vein is patent and compressible. Ordering Physician: Marcus Aldrich Referring Physician: Omid Colindres Performed By: Mike Lerma RVT
== END | disposition home or self-care (01) ==
LOC: CVS 13:12
PROVIDERS: PCP Family Medicine; Referring Provider Family Medicine; Visit Provider Family Medicine
DX: M79.89 Other specified soft tissue disorders (principal); L03.115 Cellulitis of right lower limb
CPT/HCPCS: 93971

== ENCOUNTER → 2024-08-25 | Outpatient (CLI) | payer OTHER, SELFPAY ==
--- NOTE | 2024-08-25 13:05 | ECHOCS_ITS ---
Reason For Study Reason For Study: AFIB Procedure This was a 2D Doppler, Color Flow transthoracic echocardiogram. The study was technically difficult. Contrast injection was performed. Exam performed in department. Left Ventricle Normal left ventricle. Mild concentric left ventricular hypertrophy. Left ventricular systolic function is normal. Right Ventricle The right ventricle is not well visualized. Atria The left atrium is not well visualized. The right atrium is not well visualized. Mitral Valve Mitral valve not well visualized. Tricuspid Valve The tricuspid valve is not well visualized. Aortic Valve The aortic valve is not well visualized. Great Vessels Normal sized aortic root. The pulmonary is not well visualized. Pericardium/Pleural No pericardial effusion. Medication 22 gauge I.V. with prn adaptor inserted into right arm. Diluted definity 3ml given slow IV push to enhance endocardial definition. MMode/2D Measurements & Calculations LVIDd: 6.2 cm IVSd: 1.3 cm LVOT diam: 2.0 cm LVIDs: 4.8 cm LVPWd: 1.6 cm LVOT area: 3.1 cm2 FS: 21.5 % Ao root diam: 3.1 cm LA dimension(2D): 4.7 cm Doppler Measurements & Calculations MV E max janeen: 79.6 cm/sec Ao V2 max: 143.0 cm/sec Ao max P.2 mmHg Ao V2 mean: 92.1 cm/sec Ao mean P.2 mmHg Ao V2 VTI: 28.4 cm ECHO/Echo Complete W/ Contrast Interpretation Summary Normal left ventricle. Left ventricular systolic function is normal. Contrast injection was performed. The study was technically limited. The study was technically difficult. Ordering Physician: Taylor Patel Referring Physician: Taylor Patel Performed By: Lisa Louis RCS
== END | disposition home or self-care (01) ==
LOC: CVS 13:04
PROVIDERS: PCP Family Medicine; Referring Provider Nurse Practitioner Gerontology; Visit Provider Nurse Practitioner Gerontology
DX: R06.00 Dyspnea, unspecified (principal); I48.91 Unspecified atrial fibrillation
CPT/HCPCS: 93306; Q9957; A4216; C8929

== ENCOUNTER 2024-09-15 14:00 | Outpatient (RCR) | payer OTHER, SELFPAY ==
--- NOTE | 2024-09-07 07:51 | HP.OTEVAL ---
Patient's Visit Information Visit Information Visit Information: RICHI HU is a 69 year old M, referred to Occupational Therapy by Dr. Marcus Aldrich MD, with a diagnosis of cellulitis, Peripheral edema, Lymphedema. Date of Evaluation: 09/05/24 Occupational Therapist: Susie Falcon, SANJUANA/Klarissa, CHT Subjective Subjective: This 69 year old male was seen for OT eval with dx of LE lymphedema. pt states he had a stroke in 2019 and he feels his swelling has been a problem since. pt states he has been using compression socks on and off for year due to travel with his career. Pt states his legs did start swelling a few weeks prior to hospitalization on August 07 2024 due to cellulitis. pt states this was his first time dx for cellulitis. Pt states he finished his antibiotics Thursday the 2024. pt states the last time he purchased new compression socks was in Mar/Apr 20-30 mmHg. pt states he has not been able to get his compression socks on and feels this increased LE seeping when he did put them on. see below for PMH ADLs Comments: pt has complex medical hx. PAP (continuous positive airway pressure) dependence Sleep apnea Congestive heart failure (CHF) Hypertension Impacted cerumen of both ears Cholecystitis History of CVA (cerebrovascular accident) (04/2018) Persistent atrial fibrillation Lumbar stenosis without neurogenic claudication COVID-19 virus detected (02/17/20) Dysfunction of both eustachian tubes Diffuse otitis externa, left ear Severe headache Fatigue SOB (shortness of breath) Paroxysmal atrial fibrillation Central sleep apnea associated with atrial fibrillation Persistent atrial fibrillation Hyperlipidemia Chronic diastolic (congestive) heart failure Bilateral pulmonary embolism (05/02/18) Paroxysmal atrial fibrillation with rapid ventricular response (05/02/18) Obesity Central sleep apnea Essential (primary) hypertension Back pain Knee pain Lymphedema (Circumferential Measure) Mid-foot: right 29cm left 31cm Ankle: right 38cm left 39cm Lower calf: right 42cm keft 44cm Largest calf: right 55cm left 56cm Below knee: right 55cm left 53cm Lower Exremity Comments: 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 Lower Limb Functional Index Lower Extremity Functional Score: 33 Goals Goal: Patient will demonstrate a 20% reduction in edema by discharge: Yes Goal: Patient will demonstrate adequate knowledge of self-bandaging by the end of the first week.: Yes Goal: Patient will demonstrate adequate knowledge of self-massage by the end of the second week.: Yes Goal: Patient will demonstrate adequate knowledge of skin care and precautions by the end of the first week.: Yes Goal: Patient will demonstrate adequate knowledge of therapeutic exercises by discharge.: Yes Goal: Patient will select an appropriate compression garment and demonstrate adequate knowledge of correct donning technique, care and wearing schedule by discharge.: Yes Goal: Patient will voice understanding of need to replace compression garment every four to six months by discharge.: Yes Rehabilitation General Assessment: pt with complex med. hx. and a combination of these dx pt struggling with BLE edema/lymphedema and dx of cellulitis. 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 Pt recent d.c from [facility] with dx of Cellulitis finished his antibiotic ThursdaySeptember 02. Pt states right LE did go down in size (as this limb had the cellulitis) left LE stayed the same. Pt has not attempted putting his compression socks on at this time. states prior to hospital he did and this made them seep. pt demo need for skilled OT services 3-6 visits to ed. pt on life long mtg. of his LE edema. pt currently is struggling with AFib and waiting for call from [facility] for apt. Based on pts prior use of compression socks 20-30 mmHg. therapist POC would most conservatively initiate wearing them again during the day as long as he could tolerate wearing them. Off at night for first 4 night to ensure no skin irritations or soreness. pt states he was told he could wear them at night- I explained to pt he may not tolerate wearing so frequently as he has not worn them in a while. This therapist advised gradual wear to ensure no skin or leg irritation. pt receptive. therapist discussed with pts using velcro closure compression garment 20-50mmHG to decrease limb size to assist pt in mtg. his LE lymphedema dx. Pt asked about a devices that pumps and deflates to stimulate circulation ( states his dtr has one) Told him a vaso pneumatic devices is available and would assist pt in mtg. his LE Edema/lymphedema. pt did admit he was overwhelmed by session as he said this is nothing what the said session would be like- I am not sure what told him and he did not elaborate , just stated this is more complicated then he expected. pt did agree to return with so therapist could teach he how she can support pt with performing manual lymph massage. if cleared by medical apparatus model maker pt would benefit from home vaso pneumatic pump. Rehabilitation Potential: Questionable Anticipated Interventions Anticipated Interventions: Education re Diagnosis, Education re Life-long lymphedema Management, Education re Self-Bandaging Techniques, Education re Skin Care and Precautions, Education re Self Massage Techniques, Education re Correct Donning Tech,Care&Wearing Sched Comp Garments, Caregiver Training and Home Program Visit Plan Frequency: Every Other Week Duration: 2 Months General Plan: pt to initiate wearing his compression socks 20-30mmHg (may need 30-40mmHg but will start with what he has already) initiate moving around his home every 45 min initiate lymph stimulation exercise would like to use compression alternatives (Velcro Closure devices) to assist in decreasing limb size( pt receptive but would like to initiate least restrictive and min. complexity ) to attend to learn lymph stimulation massage TEXT: Thank you for the opportunity to evaluate your patient. For Medicare and Medicare HMO plans, please review the plan of care and approve it. It will need to be FAXED BACK to us at [phone] for Medicare purposes. Please let me know if there are questions or concerns regarding this plan of care. Physician Signature: Date:
--- NOTE | 2024-11-22 15:46 | HP.OTDCNRP_ITS ---
Patient Information Patient Information: RICHI HU was seen in my office for initial evaluation on 09/05/24. The following Plan of Care was established for this patient: POC Established Initial Frequency: Every Other Week Initial Duration: 2 Months Anticipated Interventions Anticipated Interventions: Education re Diagnosis, Education re Life-long lymphedema Management, Education re Self-Bandaging Techniques, Education re Skin Care and Precautions, Education re Self Massage Techniques, Education re Correct Donning Tech,Care&Wearing Sched Comp Garments, Caregiver Training and Home Progr am Last Seen Last Seen: This patient was last seen in our office 09/14/24. Pertinent comments regarding their Occupational therapy will appear below: no further apts have been scheduled and due to time lapse in services pt is d/c at this time. At this point I will be discontinuing this patient from occupational therapy. I would be happy to see this patient again in the future if found appropriate by the physician. Thank you! Susie Falcon, OTR/L, CHT
== END 2024-09-15 19:00 | disposition home or self-care (01) ==
LOC: OT 14:00
PROVIDERS: PCP Family Medicine; Referring Provider Family Medicine; Visit Provider Family Medicine
DX: I89.0 Lymphedema, not elsewhere classified (principal); R60.0 Localized edema
CPT/HCPCS: 97110; 97140; 97166; 97530

== ENCOUNTER 2024-09-21 15:11 | Outpatient (CLI) | payer OTHER, SELFPAY ==
[2024-09-21 15:40] LABS: Mucous, Urine 0 SEEN /hpf (<or=2+); Red Blood Cells-Urine 0 SEEN /hpf (0-5); Squamous Epithelial Cells - UA 0 SEEN /hpf (0-5)
[2024-09-21 18:36] LABS: Hematocrit 44.1 % (40-54); Hemoglobin 14.9 g/dL (13.0-16.5); Immature Granulocytes Count 0.020 X10^3/uL (0.0-0.0); Mean Corp Hgb Conc 33.8 g/dL (32-36); Mean Corpuscular Volume 92.5 fL (80-94); Mean Platelet Vol. 9.8 fl (6.2-12.0); NRBC Flagged by Analyzer 0 % (0-5); Platelet Count 227 K/mm3 (150-450); RBC Distribution Width CV 13.3 % (11.6-14.6); RBC Distribution Width SD 45.3 fl (35.1-43.9); Red Blood Count 4.77 M/mm3 (4.6-6.2); White Blood Count 7.6 K/mm3 (4.4-11.0)
--- OUTSIDE RECORDS SUMMARY | 2024-09-21 20:21 | XMS RPT_ITS | CCD ---
Author Organization [facility] Care Team Providers Care Combine Mechanic Name Role Phone Unknown, Referring Provider Unavailable Unav ailable Dr. Tiarra Bravo Primary Care Provider Dr. Tiarra Bravo Referring Provider [phone] Terell Shore Attending Provider Tiarra Bravo Unavailable EMMANUEL COREA Attending Unavailable JOLLFRANCISCO, TIARRA Jimenez Referring Unavailable JOLLIFF, TIARRA Jimenez Primary Care Unavailable DEQUAN HUDSON Attending Unavailable JOLLFRANCISCO, TIARRA Jimenez Referring Unavailable JOLLIFF, TIARRA Jimenez Primary Care Unavailable UNKNOWN, PCP Primary Care Unavailable Narichania, Dr. Jerrell Osorio Referring Unavaila MD BEBETO Andersen Attending Unavailable Adolfo Enriquez Admitting Unavailable Jollfrancisco, Dr. Tiarra Gunderson Primary Care Unavail able DinaryArgelia Admitting Unavailable DinaryArgelia Attending Unavailable DinSemaj hendrixzel Referring Unavailable Shelly, Dr. Tiarra Jimenez Primary Care Provider Dr. Tiarra Bravo Referring Provider [phone] DIMPLE Roldan Attending Provider Dr. Terell Shore Attending Provider DIMPLE Roldan Referring Provider DIMPLE Dejesus Attending Provider Dr. Tiarra Bravo MD Primary Care Provider Dr. Demetria Vaerla MD Attending Provider Dr. Demetria Varela MD Referring Provider Dr. Tiarra Bravo MD Referring Provider Jorge MAHONEY-C, Taylor Attending Provider [phone] Jens BUNN, Dr. Anne Primary Care Provider Basim HOLLIS, Dr. Hernandez Referring Provider Ungorlando DO, Dr. Hernandez Emergency Provider Sebastian HOLLIS, Dr. Grigsby Admit Provider Sebastian HOLLIS, Dr. Grigsby Attending Provider Sebastian HOLLIS, Dr. Grigsby Other Provider Jens BUNN, Dr. Anne Referring Provider Jorge MAHONEY-C, Taylor Referring Provider Valdemar BUNN, Dr. Leonor Cancino Attending Provider Valdemar BUNN, Dr. Leonor Cacnino Referring Provider Eloise BUNN, Dr. Adi May Attending Provider Silviano BUNN, Dr. Figueredo Attending Provider [phone] Basim, David Referring Unavailable Jens, Omid Primary Care Unavailable Seb Cortes Admitting Unavailable Seb Cortes Attending Unavailable Seb Cortes Consulting Unavailable Jorge MAHONEY, Taylor Attending Unavailable Colindres, Omid Primary Care Unavailable Silviano, Terell Attending Unavailable Colindres, Omid Primary Care Unavailable Jorge MAHONEY, Taylor Attending Unavailable Leonor Aldrich Primary Care Unavailable Basali, Ayman Referring Unavailable Basali, Ayman Attending Unavailable Jolliff, Tiarra S Primary Care Unavailable Susie Roldan Attending Unavail able Jolliff, Tiarra S Primary Care Unavailable Jolliff, Tiarra S Attending Unavailable Jolliff, Tiarra S Primary Care Unavailable Basali, Ayman Referring Unavailable Basali, Ayman Attending Unavailable Jolliff, Tiarra S Primary Care Unavailable Silviano, Scenic Referring Unavailable Silviano, Terell Attending Unavailable Jolliff, Tiarra S Primary Care Unavailable Jolliff, Tiarra S Referring Unavailable Susie Roldan Attending Unavail able Jolliff, Tiarra S Primary Care Unavailable Jolliff, Tiarra S Referring Unavailable Jolliff, Tiarra S Primary Care Unavailable Susie Roldan Attending Unavail able Jorge MAHONEY, Taylor Attending Unavailable Jolliff, Tiarra S Referring Unavailable Colindres, Omid Primary Care Unavailable Silviano, Terell Referring Unavailable Silviano, Terell Attending Unavailable Silviano, Terell Consulting Unavailable Jolliff, Tiarra S Primary Care Unavailable Bob Gibson Attending Unavailable Silviano, Terell Consulting Unavailable Silviano, Terell Referring Unavailable Jolliff, Tiarra S Primary Care Unavailable Leonor Aldrich Referring Unavailable Leonor Aldrich Attending Unavailable Omid Colindres Primary Care Unavailable Leonor Aldrich Referring Unavailable Leonor Aldrich Attending Unavailable Leonor Aldrich Primary Care Unavailable David Stallworth Referring Unavailable Seb Cortes Attending Unavailable Seb Cortes Admitting Unavailable Jens, Omid Primary Care Unavailable Jorge KEY WORKER, Taylor Referring Unavailable Jorge KEY WORKER, Taylor Attending Unavailable Jens, Omid Primary Care Unavailable Jorge KEY WORKER, Taylor Referring Unavailable Jorge KEY WORKER, Taylor Attending Unavailable Omid Colindres Primary Care Unavailable Jens, Omid Primary Care Unavailable Jens, Omid Referring Unavailable Jorge KEY WORKER, Taylor Attending Unavailable Allergies Allergy Classification Reported Allergen(s) Allergy Type Date of Onset Reaction(s) Facility (17 sources) Penicillins Allergy to substance 2 Anaphylaxis [facility] (17 sources) Sulfonamides (Antibiotic) Allergy to substance 2 Hives [facility] (2 sources) Penicillins; Translations: [Penicillins] Allergy to drug (finding) [facility] Work Phone: (2 sources) Sulfonamides (Antibiotic); Translations: [Sulfa Drugs] Allergy to drug (finding) [facility] Work Phone: (3 sources) cefdinir Drug Allergy 5 Rash [facility] (1 source) cefdinir Drug Allergy 5 [facility] (1 source) Penicillins Drug allergy (disorder) 5 [facility] (1 source) Sulfonamides (Antibiotic) Drug allergy (disorder) 5 [facility] Medications Current Medications Medication Drug Class(es) Dates Sig (Normalized) Sig (Original) cholecalciferol 0.025 mg oral capsule (20 sources) Vitamin D Start: 07-25-2020 take 1 capsule by mouth once daily Cholecalciferol (Vitamin D3) 25 mcg (1,000 unit) capsule Active 25 ug PO DAILY July 25, 2020 12:00am vitamin Start: 11-17-2016 End: 07-25-2017 take 1 capsule by mouth once daily Cholecalciferol (Vitamin D3) 1,000 UNIT capsule Discontinued 1000 U PO DAILY November 17, 2016 12:00am July 25, 2017 10:08am furosemide 40 mg oral tablet (20 sources) Loop Diuretic Start: 08-10-2024 Furosemide (La six) 40 mg tablet Active 60 mg PO TWICE A DAY 90 1 August 10, 2024 12:00am Start: 05-04-2018 End: 08-10-2024 take 1 tablet by mouth once daily Furosemide 40 mg tablet Discontinued 40 mg PO DAILY 90 3 July 28, 2024 9:26am August 10, 2024 11:51am latanoprost 0.05 mg/ml ophthalmic solution (20 sources) Prostaglandin Analog Start: 12-02-[address] 0.005 % drops Active 1 NMA OPHTHALMIC DAILY December 02, 2020 12:00am glaucoma Start: 07-29-2019 End: 07-25-2020 Latanoprost 0.005 % drops Discontinued 1 NMA OPHTHALMIC DAILY April 25, 2020 4:11pm July 25, 2020 9:27am eye pressure Start: 07-29-2019 End: 04-25-2020 take 1 mL [...] 0 Refills: 0 Ordered: 10-Jan-2022 DO Active Multivitamin (Multiple Vitam ins) tablet (17 sources) Start: 07-25-2020 Multivitamin ( Multiple Vitamins) tablet Active 1 {tbl} PO DAILY July 25, 2020 12:00am vitamin Start: 07-25-2020 Multivitamin ( Multiple Vitamins) tablet Active 1 {tbl} PO DAILY July 25, 2020 12:00am Start: 07-25-2020 take 1 tablet by keaton once daily Multivitamin (Multiple Vitamins) tablet Active 1 TABLET PO DAILY July 24, 2020 11:00pm Start: 07-25-2020 take 1 tablet by keaton th once daily Multivitamin (Multiple Vitamins) tablet Active 1 TABLET PO DAILY July 25, 2020 12:00am potassium chloride 10 meq extended release oral tablet (5 sources) Start: 08-10-2024 Potassium Chloride (Klor-Con 10) 10 mEq tablet extended release Active 20 meq PO DAILY 60 0 August 10, 2024 12:00am traMADol hydrochloride 50 mg oral tablet (14 sources) Opioid Agonist Start: 07-15-2022 take 1 tablet by mouth four times daily as needed for pain Tramadol 50 mg tablet Active 50 mg PO ONCE as needed for pain July 15, 2022 12:00am Takes 4 times daily as needed Vitamin B Complex tablet (7 sources) Start: 07-09-2023 Vitamin B Comp chani tablet Active 1 {tbl} PO DAILY July 09, 2023 12:00am vitamin Start: 07-09-2023 Vitamin B Comp chani tablet Active 1 {tbl} PO DAILY July 09, 2023 12:00am Completed/Discontinued Medications Medication Drug Class(es) Dates Sig (Normalized) Sig (Original) acetaminophen 325 mg / HYDROcodone bitartrate 5 mg oral tablet (20 sources) Opioid Agonist Start: 05-09-2020 End: 05-12-2020 Hydrocodone-Acetami nophen 1 TABLET tablet Discontinued 1 {tbl} PO EVERY 6 HOURS NEEDED as needed for Pain 12 3 0 May 09, 2020 May 11, 2020 1:00am May 12, 2020 1:03am Spinal stenosis of lumbar region without neurogenic claudication Spinal stenosis, lumbar region without neurogenic claudication Start: 05-09-2020 End: 05-12-2020 take 1 tablet by mouth every six hours as needed Hydrocodone-Acetaminophen Discontinued 1 TABLET PO EVERY 6 HOURS NEEDED 12 3 May 09, 2020 May 12, 2020 12:03am Start: 01-03-2019 End: 01-09-2019 Hydrocodone-Acetaminophen 1 TABLET tablet Discontinued 1 {tbl} PO EVERY 8 HOURS as needed for Pain 10 3 0 January 03, 2019 January 05, 2019 1:00am January 09, 2019 1:10am Back pain Dorsalgia, unspecified Start: 01-03-2019 End: 01-09-2019 take 1 tablet [...] 24, 2014 12:00am February 09, 2014 8:01am [id number] actuat albuterol 0.09 mg/actuat metered dose inhaler (17 sources) beta2-Adrenergic Agonist Start: 05-02-2018 End: 05-26-2018 [...] 5 mg PO TWICE A DAY 60 3 May 26, 2018 4:22pm May 27, 2018 [...] 02, 2018 1:00am May 04, 2018 12:17pm [employer] Start: 04-03-2015 End: 07-25-2017 take 1 tablet by mouth once daily Aspirin 81 MG tablet,chewable Discontinued 81 mg PO DAILY@0800 April 03, 2015 1:00am July 25, 2017 10:07am cefdinir 300 mg oral capsule (5 sources) Cephalosporin Antibacterial Start: 08-10-2024 End: 08-16-2024 take 1 capsule by mouth twice daily Cefdinir 300 mg capsule Discontinued 300 mg PO TWICE A DAY 14 0 August 10, 2024 12:00am August 16, 2024 2:56pm start today celecoxib 200 mg oral capsule (17 sources) Nonsteroidal Anti-inflammatory Drug Start: 11-18-2016 End: 07-25-2017 take 1 capsule by mouth twice daily Celecoxib 200 MG capsule Discontinued 200 mg PO TWICE A DAY 14 0 November 18, 2016 12:00am July 25, 2017 10:07am codeine phosphate 2 mg/ml / promethazine hydrochloride 1.25 mg/ml oral solution (17 sources) Opioid Agonist, Phenothiazine Start: 05-02-2018 End: 05-26-2018 take 1 mL by mouth every four hours as needed for cough Promethazine-Codei ne 5 ML syrup Discontinued 5 mL PO EVERY 4 HOURS NEEDED as needed for Cough May 02, 2018 1:00am May 26, 2018 3:35pm Start: 05-02-2018 End: 05-26-2018 take 1 mL by mouth every four hours as needed Promethazine-Codeine Discontinued 5 ML PO EVERY 4 HOURS NEEDED May 02, 2018 12:00am May 26, 2018 2:35pm cyclobenzaprine hydrochloride 10 mg oral tablet (17 sources) Muscle Relaxant Start: 05-06-2020 End: 07-03-2021 take 1 tablet by mouth twice daily as needed for pain Cyclobenzaprine 10 MG tablet Discontinued 10 mg PO TWICE DAILY NEEDED as needed for back pain May 06, 2020 1:00am July 03, 2021 1:03pm dexamethasone 6 mg oral tablet (17 sources) Corticosteroid Start: 03-10-2020 End: 03-20-2020 take 1 tablet by mouth twice daily Dexamethasone 6 mg tablet Discontinued 6 mg PO TWICE A DAY 20 10 0 March 10, 2020 1:00am March 19, 2020 1:00am March 20, 2020 1:03am flecainide acetate 150 mg oral tablet (20 sources) Antiarrhythmic Start: 07-07-2020 End: 12-02-2020 take 1 tablet by mouth every twelve hours Flecainide 150 mg tablet Discontinued 150 mg PO Q12H 60 5 October 31, 2020 11:07am December 02, 2020 1:12pm Start: 06-22-2020 End: 07-07-2020 take 1 tablet by mouth every twelve hours Flecainide 100 mg tablet Discontinued 100 mg PO Q12H 60 5 June 22, 2020 12:00am July 07, 2020 9:47am 12 hr guaiFENesin 1200 mg / pseudoephedrine hydrochloride 120 mg extended release oral tablet (17 sources) alpha-Adrenergic Agonist Start: 05-02-2018 End: 05-26-2018 Pseudoephedrine-Guaifenesin 1 EACH tablet extended release 12 hr Discontinued 1 NMA PO NEEDED as needed for Congestion May 02, 2018 1:00am May 26, 2018 3:35pm Start: 05-02-2018 End: 05-26-2018 Pseudoephedrine-Guaifenesin Discontinued 1 EACH PO NEEDED May 02, 2018 12:00am May 26, 2018 2:35pm hydrocortisone 10 mg/ml / neomycin 3.5 mg/ml / polymyxin b 16303 unt/ml otic suspension (17 sources) Aminoglycoside Antibacterial, Polymyxin-class Antibacterial, Corticosteroid Start: 12-10-2019 End: 12-20-2019 Qwjugilo-Vvjqiqjdk-Mh 3.5-10,000-1 mg/mL-unit/mL-% drops,suspension Discontinued 3 NMA OTIC Q4H 10 10 0 December 10, 2019 12:00am December 19, 2019 12:00am December 20, 2019 12:03am apply to (cotton) wick; replace wick every 24 hours Start: 12-10-2019 End: 12-20-2019 Xjtvqfjm-Cgvglpskv-Rl Discon tinued 3 DRP OTIC Q4H 10 December 09, 2019 11:00pm December 19, 2019 11:03pm apply to (cotton) wick; replace wick every 24 hours lisinopril 10 mg oral tablet (20 sources) Angiotensin Converting Enzyme Inhibitor Start: 07-15-2022 End: 02-05-2023 take 1 tablet by mouth once daily Lisinopril 10 mg tablet Discontinued 10 mg PO DAILY 90 July 15, 2022 3:15pm February 05, 2023 1:49pm Start: 05-04-2018 End: 07-15-2022 Lisinopril 20 mg tablet Disc ontinued 0 .ROUTE .COMPLEX 90 April 29, 2021 9:07am July 15, 2022 3:16pm TAKE 1 TABLET DAILY Start: 10-13-2013 End: 05-04-2018 take 1 tablet by mouth once daily Lisinopril 40 MG tablet Discontinued 40 mg PO DAILY October 13, 2013 12:00am May 04, 2018 12:13pm HTN losartan potassium 50 mg oral tablet (20 sources) Angiotensin 2 Receptor Brianna Start: 04-20-2023 End: 07-28-2024 take 1 tablet by mouth once daily Losartan 50 mg tablet Discontinued 50 mg PO DAILY 90 July 27, 2024 11:16am July 28, 2024 9:26am magnesium oxide 400 mg oral tablet (20 sources) Start: 02-05-2023 End: 07-28-2024 take 1 tablet by mouth twice daily Magnesium Oxide 400 mg (241.3 mg magnesium) tablet Discontinued 400 mg PO TWICE A DAY 180 July 27, 2024 11:16am July 28, 2024 9:26am meloxicam 15 mg oral tablet (20 sources) Nonsteroidal Anti-inflammatory Drug Start: 04-25-2020 End: 07-25-2020 take 1 tablet by mouth once daily Meloxicam 15 mg tablet Discontinued 15 mg PO DAILY April 25, 2020 1:00am July 25, 2020 9:27am back Start: 10-13-2013 End: 02-09-2014 take 1 tablet by mouth once daily Meloxicam 15 MG tablet Discontinued 15 mg PO DAILY October 13, 2013 12:00am February 09, 2014 9:01am methylPREDNISolone 4 mg oral tablet (17 sources) Corticosteroid Start: 11-18-2016 End: 07-25-2017 Methylprednisolone 4 MG tablet Discontinued 4 mg PO DIRECTED 1 November 18, 2016 12:00am July 25, 2017 10:07am metoprolol tartrate 50 mg oral tablet (20 sources) beta-Adrenergic Brianna Start: 05-04-2018 End: 12-02-2020 take 1 tablet by mouth twice daily Metoprolol Tartrate 50 mg tablet Discontinued 50 mg PO TWICE A DAY 180 4 September 24, 2020 2:30pm December 02, 2020 1:14pm Multivitamin 1 EACH tablet (7 sources) Start: 04-03-2015 End: 12-10-2019 Multivitamin 1 EACH tablet Discontinued 1 NMA PO DAILY April 03, 2015 1:00am December 10, 2019 9:40am supplement Start: 04-03-2015 End: 12-10-2019 Multivitamin 1 EACH tablet D iscontinued 1 NMA PO DAILY April 03, 2015 1:00am December 10, 2019 9:40am Multivitamin preparation (10 sources) Start: 04-03-2015 End: 12-10-2019 Multivitamin Discontinued 1 EACH PO DAILY April 03, 2015 12:00am December 10, 2019 8:40am Start: 04-03-2015 End: 12-10-2019 Multivitamin Discontinued 1 EACH PO DAILY April 03, 2015 1:00am December 10, 2019 9:40am pantoprazole 40 mg delayed release oral tablet (17 sources) Proton Pump Inhibitor Start: 12-02-2020 End: 07-03-2021 take 1 tablet by mouth once daily Pantoprazole 40 mg tablet,delayed release (DR/EC) Discontinued 40 mg PO DAILY December 02, 2020 12:00am July 03, 2021 1:02pm predniSONE 20 mg oral tablet (17 sources) Start: 05-02-2018 End: 05-04-2018 take 1 tablet by mouth once daily Prednisone 20 MG tablet Discontinued 20 mg PO DAILY May 02, 2018 1:00am May 04, 2018 12:14pm bronchitis rivaroxaban 20 mg oral tablet (20 sources) Factor Xa Inhibitor Start: 04-22-2024 End: 07-27-2024 take 1-833 tablets by mouth once daily at mealtime Rivaroxaban (Xarelto) 20 mg tablet Discontinued 20 mg PO .COMPLEX 90 3 May 05, 2024 1:01pm July 27, 2024 11:19am 20 mg orally every evening with food: Fax to [facility]: Start: 06-14-2019 End: 03-23-2024 take 1 tablet by mouth at dinner Rivaroxaban 20 mg tablet Discontinued 20 mg PO WITH DINNER 90 3 September 25, 2023 10:18am March 23, 2024 9:32am must administer with evening meal Start: 01-26-2019 End: 01-26-2019 take 1 tablet by mouth once daily in the evening Rivaroxaban (Xarelto) 20 mg tablet Discontinued 20 mg PO EVERY EVENING January 26, 2019 1:00am January 26, 2019 3:28pm Xarelto 20 MG Or al Tablet Quantity: 0 Refills: 0 Ordered: 10-Jan-2022 DO Active sacubitril 49 mg / valsartan 51 mg oral tablet (10 sources) Angiotensin 2 Receptor Brianna Start: 02-05-2023 End: 04-20-2023 Sacubitril-Valsartan (Entresto) 49-51 mg tablet Discontinued 1 {tbl} PO TWICE A DAY 180 3 February 05, 2023 1:00am April 20, 2023 2:07pm sotalol hydrochloride 120 mg oral tablet (20 sources) Antiarrhythmic Start: 12-02-2020 End: 07-28-2024 take 1 tablet by mouth twice daily Sotalol 120 mg tablet Discontinued 120 mg PO TWICE A DAY 180 July 27, 2024 11:16am July 28, 2024 9:26am spironolactone 25 mg oral tablet (20 sources) Aldosterone Antagonist Start: 01-20-2023 End: 07-28-2024 take 1 tablet by mouth once daily Spironolactone 25 mg tablet Discontinued 25 mg PO DAILY 90 3 July 27, 2024 11:17am July 28, 2024 9:26am Problems Active Problems Problem Classification Problem Date Documented Da te Episodic/Chronic Abdominal pain (17 sources) Abdominal pain; Translations: [Unspecified abdominal pain] [...] above: RFA 11/29/20 Congestive heart failure; nonhypertensive (20 sources) Chronic diastolic heart failure; Translations: [Chronic diastolic (congestive) heart failure] Onset: 3 07-13-2018 Chronic Disorders of lipid metabolism (18 sources) Hyperlipidemia; Translations: [Hyperlipidemia, unspecified] Onset: 2 11-15-2019 Chronic Essential hypertension (20 sources) Essential hypertension; Translations: [Essential (primary) hypertension] Onset: 5 Chronic Gastroduodenal ulcer (except hemorrhage) (2 sources) [...] artificial knee joint] Onset: 2 Chronic Other connective tissue disease (1 source) Other specified soft tissue disorders; Translations: [Other specified soft tissue disorders] Onset: 5 Episodic Other disorders of stomach and duodenum (1 source) Other diseases of stomach and duodenum; Translations: [Other diseases of stomach and duodenum] Onset: 3 Episodic Other ear and sense organ disorders (17 sources) Diffuse otitis externa, left ear; Translations: [Diffuse otitis externa of left ear] 04-24-2020 Episodic Other ear and sense organ disorders (10 sources) Impacted cerumen; Translations: [Impacted cerumen, bilateral] 02-09-2023 Episodic Other ear and sense organ disorders (3 sources) Impacted cerumen, bilateral; Translations: [Impacted cerumen] 02-09-2023 Episodic Other gastrointestinal disorders (2 sources) Encounter for fitting and adjustment of other gastrointestinal appliance and device; Translations: [Encounter for fit/adjst of GI appliance and device] Onset: 3 Episodic Other liver diseases (17 sources) Elevated liver enzymes level; Translations: [Abnormal levels of other serum enzymes] 01-07-2022 Episodic Other liver diseases (2 sources) Jaundice; Translations: [Jaundice, unspecified, not of ] Episodic Other liver diseases (2 sources) Enzyme level - finding; Translations: [Other nonspecific abnormal serum enzyme levels] Episodic Other lower respiratory disease (20 sources) Dyspnea; Translations: [Dyspnea, unspecified] 12-24-2020 Episodic Other lower respiratory disease (7 sources) Dyspnea, unspecified; Translations: [Other respiratory abnormalities] Onset: 5 01-06-2023 Episodic Other lower respiratory disease (11 sources) Dyspnea on exertion; Translations: [Other forms of dyspnea] 08-07-2024 Episodic Other lower respiratory disease (1 source) Other forms of dyspnea; Translations: [Other forms of dyspnea] Onset: 5 Episodic Other nutritional; endocrine; and metabolic disorders [...] 2 Chronic Otitis media and related conditions (17 sources) Dysfunction of eustachian tube; Translations: [Other specified disorders of Eustachian tube, bilateral] 04-24-2020 Episodic Residual codes; unclassified (1 source) Central sleep apnea in conditions classified elsewhere; Translations: [Central sleep apnea in conditions classified elsewhere] Onset: 5 Chronic Residual codes; unclassified (1 source) Other specified postprocedural states; Translations: [Other specified postprocedural states] Onset: 5 Episodic Skin and subcutaneous tissue infections (16 sources) Cellulitis of right lower limb; Translations: [Cellulitis of right lower limb] Onset: 5 08-07-2024 Episodic Spondylosis; intervertebral disc disorders; other back [...] [Other persistent atrial fibrillation] Onset: 1 Unclassified (15 sources) Atrial fibrillation/flutter; Translations: [Z98.890 - Other specified postprocedural states] Unclassified (7 sources) History of radiofrequency ablation procedure for cardiac arrhythmia Unclassified (5 sources) At scheduled appointment time Past or Other Problems Problem Classification Problem Date Documented Date Episodic/Chronic Other aftercare (2 sources) Other longitudinal float operator (current) drug therapy; Translations: [Other usp (current) drug therapy] Onset: 11-28-2020 Episodic Other circulatory disease (17 sources) History of cerebrovascular accident; Translations: [Personal history of transient ischemic attack (TIA), and cerebral infarction without residual deficits] Onset: 04-30-2018 01-13-2022 Episodic Other circulatory disease (1 source) Personal history of transient ischemic attack (TIA), and cerebral infarction without residual deficits; Translations: [Prsnl hx of TIA (TIA), and cereb infrc w/o resid deficits] Onset: 01-03-2022 Episodic Pulmonary heart disease (18 sources) Pulmonary embolism; Translations: [Other pulmonary embolism without acute cor pulmonale] Onset: 05-02-2018 01-13-2022 Episodic Residual codes; unclassified (20 sources) History of radiofrequency ablation operation for arrhythmia; Translations: [Other specified postprocedural states] Onset: 11-29-2020 12-25-2020 Episodic Comment on above: Wide area circumfere ntial ablation was performed successfully using RF ablation energy and without complications, with confirmation of PV isolation with the circular mapping catheter for management of atrial fibrillation. 11/29/20 Viral infection (17 sources) COVID-19; Translations: [Severe acute respiratory syndrome coronavirus 2 (SARS-CoV-2) detected] Onset: 02-17-2020 12-02-2020 Episodic Results Test Name Value Interpretation Reference Range Facility OT General Evaluationon 07-0 OT General Evaluation [facility] [place] [address] / REHABILITATION SERVICES INITIAL EVALUATION MR#: [id number] Acct: [id number] Name: RICHI HU Rep #: [id number] : [id number] From: Susie WEI/Klarissa, CHT Referring Dr.: Dr. Leonor Aldrich MD Status: REG RCR Insurance: [facility] Date: SELF PAY INSURANCE Patient's Visit Information Visit Information Visit Information: RICHI HU is a 69 year old M, referred to Occupational Therapy by Dr. Leonor Aldrich MD, with a diagnosis of cellulitis, Peripheral edema, Lymphedema. Date of Evaluation: 09/05/24 Occupational Therapist: Susie Falcon, SANJUANA/Klarissa, CHT Subjective Subjective: This 69 year old male was seen for OT eval with dx of LE lymphedema. pt states he had a stroke in 2019 and he feels his swelling has been a problem since. pt states he has been using compression socks on and off for year due to travel with his career. Pt states his legs did start swelling a few weeks prior to hospitalization on August 07 2024 due to cellulitis. pt states this was his first time dx for cellulitis. Pt states he finished his antibiotics Thursday the 2024. pt states the last time he purchased new compression socks was in Mar/Apr 20-30 mmHg. pt states he has not been able to get his compression socks on and feels this increased LE seeping when he did put them on. see below for PMH ADLs Comments: pt has complex medical hx. 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 Lower Limb Functional Index Lower Extremity Functional Score: 33 Goals Goal: Patient will demonstrate a 20% reduction in edema by discharge: Yes Goal: Patient will demonstrate adequate knowledge of self-bandaging by the end of the first week.: Yes Goal: Patient will demonstrate adequate knowledge of self-massage by the end of the second week.: Yes Goal: Patient will demonstrate adequate knowledge of skin care and precautions by the end of the first week.: Yes Goal: Patient will demonstrate adequate knowledge of therapeutic exercises by discharge.: Yes Goal: Patient will select an appropriate compression garment and demonstrate adequate knowledge of correct donning technique, care and wearing schedule by discharge.: Yes Goal: Patient will voice understanding of need to replace compression garment every four to six months by discharge.: Yes Rehabilitation General Assessment: pt with complex med. hx. and a combination of these dx pt struggling with BLE edema/lymphedema and dx of cellulitis. 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 Pt recent d.c from [facility] with dx of Cellulitis finished his antibiotic ThursdaySeptember 02. Pt states right LE did go down in size (as this limb had the cellulitis) left LE stayed the same. Pt has not attempted putting his compression socks on at this time. states prior to hospital he did and this made them seep. pt demo need for skilled OT services 3-6 visits to ed. pt on life long mtg. of his LE edema. pt currently is struggling with AFib and waiting for call from [facility] for apt. Based on pts prior use of compression socks 20-30 mmHg. therapist POC would most conservatively initiate wearing them again during the day as long as he could tolerate wearing them. Off at night for first 4 night to ensure no skin irritations or soreness. pt states he was told he could wear them at night- I explained to pt he may not tolerate wearing so frequently as he has not worn them in a while. This therapist advised gradual wear to en (more content not included)... Normal [facility] Echo Complete W/ Contraston 08-25-2024 Echo Complete W/ Contrast [facility] [address] [place] [address] Echo Complete W/ Contrast 08/25/24 1407 MR#: [id number] Acct: [id number] Name: RICHI HU Rep #: [id number] : 1955 69 From: Terell Shore MD Attending Dr: Taylor Patel NP-C Status: YONAS OLIVAREZ Ordering Dr: Taylor Patel NP KEY WORKER-C Date: 08/25/24 Location: CVS Sex: M C Admitted: Reason For Study Reason For Study: AFIB Procedure This was a 2D Doppler, Color Flow transthoracic echocardiogram. The study was technically difficult. Contrast injection was performed. Exam performed in department. Left Ventricle Normal left ventricle. Mild concentric left ventricular hypertrophy. Left ventricular systolic function is normal. Right Ventricle The right ventricle is not well visualized. Atria The left atrium is not well visualized. The right atrium is not well visualized. Mitral Valve Mitral valve not well visualized. Tricuspid Valve The tricuspid valve is not well visualized. Aortic Valve The aortic valve is not well visualized. Great Vessels Normal sized aortic root. The pulmonary is not well visualized. Pericardium/Pleural No pericardial effusion. Medication 22 gauge I.V. with prn adaptor inserted into right arm. Diluted definity 3ml given slow IV push to enhance endocardial definition. MMode/2D Measurements Calculations LVIDd: 6.2 cm IVSd: 1.3 cm LVOT diam: 2.0 cm LVIDs: 4.8 cm LVPWd: 1.6 cm LVOT area: 3.1 cm2 FS: 21.5 % Ao root diam: 3.1 cm LA dimension(2D): 4.7 cm Doppler Measurements Calculations MV E max janeen: 79.6 cm/sec Ao V2 max: 143.0 cm/sec Ao max P.2 mmHg Ao V2 mean: 92.1 cm/sec Ao mean P.2 mmHg Ao V2 VTI: 28.4 cm ECHO/Echo Complete W/ Contrast Interpretation Summary Normal left ventricle. Left ventricular systolic function is normal. Contrast injection was performed. The study was technically limited. The study was technically difficult. Ordering Physician: Taylor Patel Referring Physician: Taylor Patel Performed By: Lisa Louis RCS 08/25/24 1604 Date Terell Shore MD CC: JOSE Patel; Dr. Omid Colindres MD Date Dictated: 08/25/24 1407 Date Transcribed: 08/25/241603 Granulating Blender: Signed Normal [facility] Echocardiogram study reportO rdered By: Terell Shore on 08-25-2024 Study report [facility] [address] [place] [address] Echo Complete W/ Contrast 08/25/241406 MR#: [id number] Acct: [id number] Name: RICHI HU Rep #:[id number] : 1955 69 From: Terell Small Attending Dr: JOSE Palmer S tatus: REG CLI Ordering Dr: Taylor Patel NP Eren e: 08/25/24 Location: [facility] Sex: M C Admitted: Reason For Study Reason For Study: AFIB Procedure This was a 2D Doppler, Color Flow transthoracic echocardiogram. The study was technically difficult. Contrast injection was performed. Exam performed in department. Left Ventricle Normal left ventricle. Mild concentric left ventricular hypertrophy. Left ventricular systolic function is normal. Right Ventricle The right ventricle is not well visualized. Atria The left atrium is not well visualized. The right atrium is not well visualized. Mitral Valve Mitral valve not well visualized. Tricuspid Valve The tricuspid valve is not well visualized. Aortic Valve The aortic valve is not well visualized. Great Vessels Normal sized aortic root. The pulmonary is not well visualized. Pericardium/Pleural No pericardial effusion. Medication 22 gauge I.V. with prn adaptor inserted into right arm. Diluted definity 3ml given slow IV push to enhance endocardial definition. MMode/2D Measurements & Calculations LVIDd: 6.2 cm IVSd: 1.3 cm LVOT diam: 2.0 cm LVIDs: 4.8 cm LVPWd: 1.6 cm LVOT area: 3.1 cm2 FS: 21.5 % Ao root diam: 3.1 cm LA dimension(2D): 4.7 cm Doppler Measurements & Calculations MV E max janeen: 79.6 cm/sec Ao V2 max: 143.0 cm/sec Ao max P.2 mmHg Ao V2 mean: 92.1 cm/sec Ao mean P.2 mmHg Ao V2 VTI: 28.4 cm ECHO/Echo Complete W/ Contrast Interpretation Summary Normal left ventricle. Left ventricular systolic function is normal. Contrast injection was performed. The study was technically limited. The study was technically difficult. Ordering Physician: Taylor Patel Referring Physician: Taylor Patel Performed By: Lisa Louis RCS 08/25/24 1604 Date _ Terell Shore MD CC: JOSE Patel; Dr. Omid Colindres MD ~ Date Dictated: 08/25/24 1407 Date Transcribed: 08/25/24 1604 Granulating Blender: Signed [facility] Work Phone: Venous duplex ultrasound rep ortOrdered By: Adi Navas on 08-17-2024 US Vein [facility] [address] [place] [address] Venous Duplex US, Unilateral 08/16/24 1332 MR#: [id number] Acct: [id number] Name: RICHI HU Rep #:[id number] : 1955 69 From: Adi Navas MD Attending Dr: Dr. Leonor Aldrich MD Status: REG CLI Ordering Dr: Leonor Aldrich MD Date: 08/16/24 Location: CVS Sex: M C Admitted: Reason For Study Reason For Study: RLE Edema RIGHT LEFT GSV is normal. FV is compressible, spontaneous, phasic, competent CFV is compressible, spontaneous, phasic, competent and demonstrates normal augmentation. and demonstrates normal augmentation. FV is compressible, spontaneous, phasic, competent and demonstrates normal augmentation. POP V is compressible, spontaneous, phasic, competent and demonstrates normal augmentation. T/P Trunk is compressible. PTV is compressible. RT PerV is compressible. Procedure This is a venous duplex using B-mode, color flow and spectral Doppler. Exam performed in department. The exam was diagnostic. A preliminary report was called and/or faxed to [facility]. VL/Venous Duplex US, Unilateral Interpretation Summary Deep veins of the right lower extremity are patent and compressible segmentally.There is no evidence of right lower extremity deep vein thrombosis. Valvular competence appears intact within the proximal deep venous system on the right . The right great saphenous vein appears patent and compressible segmentally. The left femoral vein is patent and compressible. Ordering Physician: Leonor Aldrich Referring Physician: Omid Colindres Performed By: Mike Lerma RVT 08/17/24 2307 Date _ Adi Navas MD CC: Dr. Leonor Aldrich MD; Dr. Omid Colindres MD ~ Date Dictated: 08/16/24 1332 Date Transcribed: 08/17/242303 Granulating Blender: Signed [facility] Other Phone: Absolute lymphocyte countOrd ered By: Taylor Patel on 08-16-2024 Lymphocytes Auto (Unsp spec) [#/Vol] 2.37 10*3/uL 0.83-4.51 [facility] Absolute neutrophil countOrd ered By: Taylor Patel on 08-16-2024 Neutrophils (Bld) [#/Vol] 5.8 10*3/uL 2.0-7.7 [facility] Anion gap in Serum or Plasma Ordered By: Taylor Patel on 08-16-2024 Anion gap [Moles/Vol] 12 mmol/L 5-15 [facility] Automated lymphocyte count a s percentage of total leukocytesOrdered By: Taylor Patel on 08-16-2024 Lymphocytes/100 WBC Auto (Unsp spec) 26.0 % - [facility] BUN/creatinine ratioOrdered By: Taylor Patel on 08-16-2024 Urea nitrogen/Creatinine [Mass ratio] 20.7 mg/mg High 12-19 [facility] Basic Metabolic Profile (BMP )on 08-16-2024 BUN/CRE 20.7 RATIO High 12-19 [facility] Comment on above: Performed By: #### L 500.2500, L100.0100 #### [facility] [address] [place], [address] Calcium [Mass/Vol] 9.3 mg/dL Normal 7.6-11.0 [facility] Comment on above: Performed By: #### L 500.2500, L100.0100 #### [facility] [address] [place], [address] Chloride [Moles/Vol] 100 mmol/L Normal 98-108 [facility] Comment on above: Performed By: #### L 500.2500, L100.0100 #### [facility] [address] [place], [address] CO2 [Moles/Vol] 25.5 mmol/L Normal 21.0-32.0 [facility] Comment on above: Performed By: #### L 500.2500, L100.0100 #### [facility] [address] [place], [address] Creatinine [Mass/Vol] 0.92 mg/dL Normal 0.70-1.20 [facility] Comment on above: Performed By: #### L 500.2500, L100.0100 #### [facility] [address] [place], [address] GAP 12 Normal 5-15 [facility] Comment on above: Performed By: #### L 500.2500, L100.0100 #### [facility] [address] [place], [address] GFR/1.73 sq M.predicted among non-blacks MDRD (S/P/Bld) [Vol rate/Area] 92 mL/min/{1.73_m2} Normal >60 [facility] Comment on above: Result Comment: mL/m in/1.73m2 CKD-EPI Creatinine Equation (2020) Performed By: #### L 500.2500, L100.0100 #### [facility] [address] [place], [address] Glucose [Mass/Vol] 118 mg/dL High 70-99 [facility] Comment on above: Performed By: #### L 500.2500, L100.0100 #### [facility] [address] [place], [address] Potassium [Moles/Vol] 3.9 mmol/L Normal 3.3-5.1 [facility] Comment on above: Performed By: #### L 500.2500, L100.0100 #### [facility] [address] [place], [address] Sodium [Moles/Vol] 138 mmol/L Normal 133-145 [facility] Comment on above: Performed By: #### L 500.2500, L100.0100 #### [facility] [address] [place], [address] Urea nitrogen [Mass/Vol] 19 mg/dL Normal 4-19 [facility] Comment on above: Performed By: #### L 500.2500, L100.0100 #### [facility] [address] [place], [address] Basophil percentageOrdered B y: Taylor Patel on 08-16-2024 Basophils/100 WBC (Bld) 0.8 % 0-1 [facility] CBC W/Diff, Automatedon 07-31 Absolute Lymph 2.37 X10 3/uL Normal 0.83-4.51 [facility] Comment on above: Performed By: #### L 500.2500, L100.0100 #### [facility] [address] [place], [address] Absolute Neut 5.8 X10 3/uL Normal 2.0-7.7 [facility] Comment on above: Performed By: #### L 500.2500, L100.0100 #### [facility] [address] [place], [address] Basophils/100 WBC (Bld) 0.8 % Normal 0-1 [facility] Comment on above: Performed By: #### L 500.2500, L100.0100 #### [facility] [address] [place], [address] Eosinophils/100 WBC (Bld) 1.9 % Normal 0-5 [facility] Comment on above: Performed By: #### L 500.2500, L100.0100 #### [facility] [address] [place], [address] Erythrocyte distribution width (RBC) [Ratio] 12.8 % Normal 11.6-14.6 [facility] Comment on above: Performed By: #### L 500.2500, L100.0100 #### [facility] [address] [place], [address] Hematocrit (Bld) [Volume fraction] 42.8 % Normal 40-54 [facility] Comment on above: Performed By: #### L 500.2500, L100.0100 #### [facility] [address] [place], [address] Hemoglobin (Bld) [Mass/Vol] 14.7 g/dL Normal 13.0-16.5 [facility] Comment on above: Performed By: #### L 500.2500, L100.0100 #### [facility] [address] [place], [address] IG% 0.400 Normal 0.0-0.9 [facility] Comment on above: Result Comment: IG% - Immature Granulocytes (promyelocytes, myelocytes and metamyelocytes) > 1% indicates that a LEFT SHIFT is Present. Performed By: #### L 500.2500, L100.0100 #### [facility] [address] [place], [address] Lymphocytes/100 WBC (Bld) 26.0 % Normal 19-41 [facility] Comment on above: Performed By: #### L 500.2500, L100.0100 #### [facility] [address] [place], [address] MCH (RBC) [Entitic mass] 32.2 pg High 27.0-32.0 [facility] Comment on above: Performed By: #### L 500.2500, L100.0100 #### [facility] [address] [place], [address] MCHC (RBC) [Mass/Vol] 34.3 g/dL Normal 32-36 [facility] Comment on above: Performed By: #### L 500.2500, L100.0100 #### [facility] [address] [place], [address] MCV (RBC) [Entitic vol] 93.9 fL Normal 80-94 [facility] Comment on above: Performed By: #### L 500.2500, L100.0100 #### [facility] [address] [place], [address] Monocytes/100 WBC (Bld) 7.3 % Normal 0-10 [facility] Comment on above: Performed By: #### L 500.2500, L100.0100 #### [facility] [address] [place], [address] Neutrophils/100 WBC (Bld) 63.6 % Normal 47-70 [facility] Comment on above: Performed By: #### L 500.2500, L100.0100 #### [facility] [address] [place], [address] Nucleated RBC (Bld) [#/Vol] 0 10*3/uL Normal 0-5 [facility] Comment on above: Performed By: #### L 500.2500, L100.0100 #### [facility] [address] [place], [address] Platelet mean volume (Bld) [Entitic vol] 9.1 fL Normal 6.2-12.0 [facility] Comment on above: Performed By: #### L 500.2500, L100.0100 #### [facility] [address] [place], [address] Platelets (Bld) [#/Vol] 298 10*3/uL Normal 150-450 [facility] Comment on above: Performed By: #### L 500.2500, L100.0100 #### [facility] [address] [place], [address] RBC (Bld) [#/Vol] 4.56 10*6/uL Low 4.6-6.2 [facility] Comment on above: Performed By: #### L 500.2500, L100.0100 #### [facility] [address] [place], [address] RDW SD 44.0 fl High 35.1-43.9 [facility] Comment on above: Performed By: #### L 500.2500, L100.0100 #### [facility] [address] [place], [address] WBC (Bld) [#/Vol] 9.1 10*3/uL Normal 4.4-11.0 [facility] Comment on above: Performed By: #### L 500.2500, L100.0100 #### [facility] [address] [place], [address] Carbon dioxide, total [Moles /volume] in Central venous bloodOrdered By: Taylor Patel on 08-16-2024 CO2 [Moles/Vol] 25.5 mmol/L 21.0-32.0 [facility] Cardiology Visit Reporton Cardiology Visit Report [facility] [address] [place] [address] OFFICE VISIT Date of Service: 08/16/24 MR#: [id number] Acct: [id number] Name: HURICHI DE LA TORREOME Rep #: [id number] : 1955 Provider: JOSE torre Age/Sex: 69/M [place] [facility] [place]: Signed HPI HPI History of Present Illness Details: Richi Hu is a 69-year-old man who presents today for cardiovascular follow-up [...] day as well asked to continue anticoagulation. Patient was in the emergency room on 08/07/2024 with complaints of shortness of breath x 5 days. His lab work was unremarkable, chest x-ray was unremarkable. They did treat him for cellulitis of his right lower extremity. He states that he has one day left of his antibiotic. From a cardiac standpoint, the patient is doing well. He does acknowledge occasional palpitation. He denies any palpitations, chest pain, pressure or heaviness. He does acknowledge SOB with exertion- this is nothing new or worsening. He denies Orthopnea, and PND. He does not have bleeding issues; no blood in urine, stool, or nosebleeds. He does acknowledge fatigue. He denies myalgias, or claudication. He does have bilateral lower extremity edema. His right lower extremity is swollen, and red. He does have occasional lightheadedness. He denies dizziness, syncopal or near syncopal episodes, and headaches. He is scheduled for an echocardiogram on 08/25/2024. Intake Vital Signs 08/08/24 10:09 08/16/24 07:07 Height 6 ft 5 in 6 ft 5 in BP 140/82 H Blood Pressure Location Lt brachial Position Sitting Respiration 22 H Pulse 68 Pulse Source Monitor Pulse Oximetry (%) 98 Intake Visit Reasons: S/P 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: No Is patient in pain?: No Allergies cefdinir Allergy (Verified 08/16/24 14:55) Rash Penicillins Allergy (Verified 08/16/24 10:41) Anaphylaxis Sulfa (Sulfonamide Antibiotics) Allergy (Verified 08/16/24 10:41) Hives Medications ???Medication ???Instructions ???Recorded ???Confirmed ???Type cholecalciferol (vitamin D3) 25 25 mcg PO DAILY vitamin 07/25/20 0 08/16/24 History mcg (1,000 unit) capsule multivitamin (Multiple Vitamins 1 tab PO DAILY vitamin 07/25/20 History tablet) latanoprost 0.005 % eye drops 1 drp ophthalmic (eye) DAILY 12/0208/16/24 History glaucoma tramadol 50 mg tablet 50 mg PO ONCE PRN pain 07/15/22 History vitamin B complex 1 tab PO DAILY vitamin 07/09/23 History rivaroxaban 20 mg tablet (Xarelto) 20 mg PO .COMPLEX #90 tabs 07/2708/16/24 Rx losartan 50 mg tablet 50 mg PO DAILY #90 tabs 07/28/24 0 08/16/24 Rx magnesium oxide 400 mg (241.3 mg 400 mg PO BID #180 tabs 07/28/24 0 08/16/24 Rx magnesium) tablet sotalol 120 mg tablet 120 mg PO BID #180 tabs 07/28/24 0 08/16/24 Rx spironolactone 25 mg tablet 25 mg PO DAILY #90 tabs 07/28/24 0 08/16/24 Rx furosemide 40 mg tablet (Lasix) 60 mg (1.5 x 40 mg) PO BID #90 tab s 08/10/24 08/16/24 Rx potassium chloride 10 mEq 20 meq (2 x 10 mEq) PO DAILY #60 0 08/10/24 08/16/24 Rx tablet,extended release (Klor-Con) tabs Ejection fraction %: 45 Have you fallen in the past year?: Yes Nurse's Note: refused weight. PFSH Medical History CPAP (continuous positive airway pressure) dependence Sleep apnea Congestive heart failure (CHF) Hypertension Impacted cerumen of both ears Cholecystitis History of CVA (cerebrovascular accident) (04/2018) Persistent atrial fibrillation Lumbar stenosis without neurogenic claudication COVID-19 virus detected (02/17/20) Dysfun (more content not included)... Normal [facility] Chloride assayOrdered By: Dell Patel on 08-16-2024 Chloride [Moles/Vol] 100 mmol/L 98-108 [facility] Eosinophil percentageOrdered By: Taylor Patel on 08-16-2024 Eosinophils/100 WBC (Bld) 1.9 % 0-5 [facility] Erythrocyte distribution wid th ratioOrdered By: Taylor Patel on 08-16-2024 Erythrocyte distribution width (RBC) [Ratio] 12.8 % 11.6-14.6 [facility] Erythrocyte distribution wid th standard deviationOrdered By: Taylor Patel on 08-16-2024 Erythrocyte distribution width (RBC) [Ratio] 44.0 fl High 35.1-43.9 [facility] Glomerular filtration rate ( GFR) estimation/1.73 sq m using serum, plasma, or whole bOrdered By: Taylor Patel on 08-16-2024 GFR/1.73 sq M.predicted among non-blacks MDRD (S/P/Bld) [Vol rate/Area] 92 mL/min/{1.73_m2} >60 [facility] Comment on above: mL/min/1.73m2 CKD-EP I Creatinine Equation (2020) Hematocrit Auto (Bld) [Volum e fraction]Ordered By: Taylor Patel on 08-16-2024 Hematocrit (Bld) [Volume fraction] 42.8 % 40-54 [facility] Hemoglobin measurementOrdere d By: Taylor Patel on 08-16-2024 Hemoglobin (Bld) [Mass/Vol] 14.7 g/dL 13.0-16.5 [facility] Immature granulocytes/100 WB C Auto (Bld)Ordered By: Taylor Patel on 08-16-2024 Immature granulocytes/100 WBC (Bld) 0.400 % 0.0-0.9 [facility] Comment on above: IG% - Immature Granu locytes (promyelocytes, myelocytes and metamyelocytes) > 1% indicates that a LEFT SHIFT is Present. MCV (mean corpuscular volume ) determinationOrdered By: Taylor Patel on 08-16-2024 MCV (RBC) [Entitic vol] 93.9 fL 80-94 [facility] Mean corpuscular hemoglobin (MCH) determinationOrdered By: Taylor Patel on 08-16-2024 MCH (RBC) [Entitic mass] 32.2 pg High 27.0-32.0 [facility] Mean corpuscular hemoglobin concentration (MCHC) determinationOrdered By: Taylor Patel on 08-16-2024 MCHC (RBC) [Mass/Vol] 34.3 g/dL 32-36 [facility] Mean platelet volume determi nationOrdered By: Taylor Patel on 08-16-2024 Platelet mean volume (Bld) [Entitic vol] 9.1 fL 6.2-12.0 [facility] Monocyte percentageOrdered B y: Taylor Patel on 08-16-2024 Monocytes/100 WBC (Bld) 7.3 % 0-10 [facility] Neutrophil percentageOrdered By: Taylor Patel on 08-16-2024 Neutrophils/100 WBC (Bld) 63.6 % 47-70 [facility] Nucleated red blood cell per centageOrdered By: Taylor Patel on 08-16-2024 Nucleated RBC/100 WBC (Bld) [Ratio] 0 % 0-5 [facility] Platelet countOrdered By: Dell Patel on 08-16-2024 Platelets (Bld) [#/Vol] 298 10*3/uL 150-450 [facility] Potassium measurement (mass/ volume)Ordered By: Taylor Patel on 08-16-2024 Potassium (Unsp spec) [Mass/Vol] 3.9 mmol/L 3.3-5.1 [facility] RBC Auto (Bld) [#/Vol]Ordere d By: Taylor Patel on 08-16-2024 RBC (Bld) [#/Vol] 4.56 10*6/uL Low 4.6-6.2 [facility] Serum creatinine measurement (mass/volume)Ordered By: Taylor Patel on 08-16-2024 Creatinine [Mass/Vol] 0.92 mg/dL 0.70-1.20 [facility] Serum glucose measurement (m ass/volume)Ordered By: Taylor Patel on 08-16-2024 Glucose [Mass/Vol] 118 mg/dL High 70-99 [facility] Serum or plasma calcium emre urement (mass/volume)Ordered By: Taylor Patel on 08-16-2024 Calcium [Mass/Vol] 9.3 mg/dL 7.6-11.0 [facility] Serum or plasma urea nitroge n measurement (mass/volume)Ordered By: Taylor Patel on 08-16-2024 Urea nitrogen [Mass/Vol] 19 mg/dL 4-19 [facility] Sodium levelOrdered By: Crista Patel on 08-16-2024 Sodium [Moles/Vol] 138 mmol/L 133-145 [facility] Venous Duplex US, Unilateral on 08-16-2024 Venous Duplex US, Unilateral [facility] [address] [place] [address] Venous Duplex US, Unilateral 08/16/24 1332 MR#: [id number] Acct: [id number] Name: RICHI HU Rep #: [id number] : 1955 69 From: Adi Navas MD Attending Dr: Dr. Leonor Aldrich MD Status: R EG CLI Ordering Dr: Leonor Aldrich MD Date: 08/16/24 Location: [facility] Sex: M C Admitted: Reason For Study Reason For Study: RLE Edema RIGHT LEFT GSV is normal. FV is compressible, spontaneous, phasic, competent CFV is compressible, spontaneous, phasic, competent and demonstrates normal augmentation. and demonstrates normal augmentation. FV is compressible, spontaneous, phasic, competent and demonstrates normal augmentation. POP V is compressible, spontaneous, phasic, competent and demonstrates normal augmentation. T/P Trunk is compressible. PTV is compressible. RT PerV is compressible. Procedure This is a venous duplex using B-mode, color flow and spectral Doppler. Exam performed in department. The exam was diagnostic. A preliminary report was called and/or faxed to [facility]. VL/Venous Duplex US, Unilateral Interpretation Summary Deep veins of the right lower extremity are patent and compressible segmentally. There is no evidence of right lower extremity deep vein thrombosis. Valvular competence appears intact within the proximal deep venous system on the right . The right great saphenous vein appears patent and compressible segmentally. The left femoral vein is patent and compressible. Ordering Physician: Leonor Aldrich Referring Physician: Omid Colindres Performed By: Mike Lerma, CLAIRE 08/17/24 2304 Date Adi Navas MD CC: Dr. Leonor Aldrich MD; Dr. Omid Colindres MD Date Dictated: 08/16/24 1332 Date Transcribed: 08/17/242303 Granulating Blender: Signed Normal [facility] White blood cell (WBC) count Ordered By: Taylor Patel on 08-16-2024 WBC (Bld) [#/Vol] 9.1 10*3/uL 4.4-11.0 [facility] Culture, Blood (WB)on 2024 CUB Blood cultures x2, f rom two different sites No growth in 5 days. Normal [facility] Comment on above: Performed By: #### L 500.2500 #### [facility] [address] [place], [address] Anion gap in Serum or Plasma Ordered By: Seb Cortes on 08-10-2024 Anion gap [Moles/Vol] 13 mmol/L - [facility] BUN/creatinine ratioOrdered By: Seb Cortes on 08-10-2024 Urea nitrogen/Creatinine [Mass ratio] 20.4 mg/mg High 10- [facility] Basic Metabolic Profile (BMP )on 08-10-2024 BUN/CRE 20.4 RATIO High 10-20 [facility] Comment on above: Performed By: #### L 500.2500 #### [facility] [address] [place], [address] Calcium [Mass/Vol] 8.7 mg/dL Normal 7.6-11.0 [facility] Comment on above: Performed By: #### L 500.2500 #### [facility] [address] [place], [address] Chloride [Moles/Vol] 100 mmol/L Normal 98-108 [facility] Comment on above: Performed By: #### L 500.2500 #### [facility] [address] [place], [address] CO2 [Moles/Vol] 24.1 mmol/L Normal 21.0-32.0 [facility] Comment on above: Performed By: #### L 500.2500 #### [facility] [address] [place], [address] Creatinine [Mass/Vol] 0.87 mg/dL Normal 0.70-1.20 [facility] Comment on above: Performed By: #### L 500.2500 #### [facility] [address] [place], [address] ECRCL 155.97 ml/min Normal 50-250 [facility] Comment on above: Performed By: #### L 500.2500 #### [facility] [address] [place], [address] GAP 13 Normal 5-15 [facility] Comment on above: Performed By: #### L 500.2500 #### [facility] [address] [place], [address] GFR/1.73 sq M.predicted among non-blacks MDRD (S/P/Bld) [Vol rate/Area] 95 mL/min/{1.73_m2} Normal >60 [facility] Comment on above: Result Comment: mL/m in/1.73m2 CKD-EPI Creatinine Equation (2020) Performed By: #### L 500.2500 #### [facility] [address] [place], [address] Glucose [Mass/Vol] 114 mg/dL High 70-99 [facility] Comment on above: Performed By: #### L 500.2500 #### [facility] [address] [place], [address] Potassium [Moles/Vol] 3.3 mmol/L Normal 3.3-5.1 [facility] Comment on above: Performed By: #### L 500.2500 #### [facility] [address] [place], [address] Sodium [Moles/Vol] 137 mmol/L Normal 133-145 [facility] Comment on above: Performed By: #### L 500.2500 #### [facility] [address] [place], [address] Urea nitrogen [Mass/Vol] 18 mg/dL Normal 4-19 [facility] Comment on above: Performed By: #### L 500.2500 #### [facility] [address] [place], [address] Carbon dioxide, total [Moles /volume] in Central venous bloodOrdered By: Seb Cortes on 08-10-2024 CO2 [Moles/Vol] 24.1 mmol/L 21.0-32.0 [facility] Chloride assayOrdered By: Lisette Cortes on 08-10-2024 Chloride [Moles/Vol] 100 mmol/L 98-108 [facility] Discharge Instructionon 07-31 Discharge Instruction [facility] Medical Records Department [address] [place] [address] Instructions for Home/Discharge Instructions 08/10/24 1150 MR#: [id number] Acct: [id number] Name: RICHI HU Rep #: [id number] : 1955 69 From: Seb Cortes DO PCP: Dr. Omid Colindres MD Status:ADM IN Discharge Instructions Diet Discharge Diet: No restrictions DC O2, CPAP, BIPAP needs Home O2 Discharge instructions: No Dressing / Incision Discharge Activity: Return to Normal Activity Weight Bearing Status: Full weight bearing Follow Up Care Test Results: Test results from this visit will be discussed in further detail at your follow-up appointment, if applicable. Discharge Plan Admission Admit Date/Time: 08/07/24 12:56 Primary Reason for Your Visit: anasarca celluitis of right leg Attending Provider: Seb Cortes Primary Care Provider: Omid Colindres Discharge Orders/Prescriptions Prescriptions: New furosemide [Lasix] 40 mg tablet 60 mg PO BID Qty: 90 1RF potassium chloride [Klor-Con 10] 10 mEq tablet extended release 20 meq PO DAILY Qty: 60 0RF cefdinir 300 mg capsule 300 mg PO BID Qty: 14 0RF Rx Instructions: start today Continued multivitamin [Multiple Vitamins] Tablet 1 tab PO DAILY cholecalciferol (vitamin D3) 25 mcg (1,000 unit) capsule 25 mcg PO DAILY tramadol 50 mg tablet 50 mg PO ONCE PRN (Reason: pain) Rx Instructions: Takes 4 times daily as needed vitamin B complex Tablet 1 tab PO DAILY latanoprost 0.005 % drops 1 drp ophthalmic (eye) DAILY Xarelto 20 mg tablet 20 mg PO .COMPLEX Qty: 90 3RF Rx Instructions: 20 mg orally every evening with food: Fax to [facility]: losartan 50 mg tablet 50 mg PO DAILY Qty: 90 3RF magnesium oxide 400 mg (241.3 mg magnesium) tablet 400 mg PO BID Qty: 180 3RF sotalol 120 mg tablet 120 mg PO BID Qty: 180 3RF spironolactone 25 mg tablet 25 mg PO DAILY Qty: 90 3RF Discontinued furosemide 40 mg tablet 40 mg PO DAILY Qty: 90 3RF Referrals / Follow Up: Terell Shore MD [Med Staff - Active Staff] - See Referral Note (At scheduled appointment time) Omid Colindres MD [Primary Care Provider] - Madison Muse [Emergency Nurse] - Disposition Disposition (needs filled in before D/C Order can be placed): Home, Self Care 08/10/24 1206 Seb Cortes DO CC: Dr. Omid Colindres MD Signed Normal [facility] Glomerular filtration rate ( GFR) estimation/1.73 sq m using serum, plasma, or whole bOrdered By: Seb Cortes on 08-10-2024 GFR/1.73 sq M.predicted among non-blacks MDRD (S/P/Bld) [Vol rate/Area] 95 mL/min/{1.73_m2} >60 [facility] Comment on above: mL/min/1.73m2 CKD-EP I Creatinine Equation (2020) Potassium measurement (mass/ volume)Ordered By: Seb Cortes on 08-10-2024 Potassium (Unsp spec) [Mass/Vol] 3.3 mmol/L 3.3-5.1 [facility] Serum creatinine measurement (mass/volume)Ordered By: Seb Cortes on 08-10-2024 Creatinine [Mass/Vol] 0.87 mg/dL 0.70-1.20 [facility] Serum glucose measurement (m ass/volume)Ordered By: Seb Cortes on 08-10-2024 Glucose [Mass/Vol] 114 mg/dL High 70-99 [facility] Serum or plasma calcium emre urement (mass/volume)Ordered By: Seb Cortes on 08-10-2024 Calcium [Mass/Vol] 8.7 mg/dL 7.6-11.0 [facility] Serum or plasma urea nitroge n measurement (mass/volume)Ordered By: Seb Cortes on 08-10-2024 Urea nitrogen [Mass/Vol] 18 mg/dL 4-19 [facility] Sodium levelOrdered By: Seb Cortes on 08-10-2024 Sodium [Moles/Vol] 137 mmol/L 133-145 [facility] Basic Metabolic Profile (BMP )on 08-09-2024 BUN/CRE 18.4 RATIO Normal 10-20 [facility] Comment on above: Performed By: #### L 500.2500 #### [facility] [address] [place], [place] [address], [address] Calcium [Mass/Vol] 8.6 mg/dL Normal 7.6-11.0 [facility] Comment on above: Performed By: #### L 500.2500 #### [facility] [address] [place], [address] Chloride [Moles/Vol] 100 mmol/L Normal 98-108 [facility] Comment on above: Performed By: #### L 500.2500 #### [facility] [address] [place], [address] CO2 [Moles/Vol] 25.2 mmol/L Normal 21.0-32.0 [facility] Comment on above: Performed By: #### L 500.2500 #### [facility] [address] [place], [address] Creatinine [Mass/Vol] 0.91 mg/dL Normal 0.70-1.20 [facility] Comment on above: Performed By: #### L 500.2500 #### [facility] [address] [place], [address] ECRCL 149.12 ml/min Normal 50-250 [facility] Comment on above: Performed By: #### L 500.2500 #### [facility] [address] [place], [address] GAP 11 Normal 5-15 [facility] Comment on above: Performed By: #### L 500.2500 #### [facility] [address] [place], [address] GFR/1.73 sq M.predicted among non-blacks MDRD (S/P/Bld) [Vol rate/Area] 92 mL/min/{1.73_m2} Normal >60 [facility] Comment on above: Result Comment: mL/m in/1.73m2 CKD-EPI Creatinine Equation (2020) Performed By: #### L 500.2500 #### [facility] [address] [place], [address] Glucose [Mass/Vol] 111 mg/dL High 70-99 [facility] Comment on above: Performed By: #### L 500.2500 #### [facility] [address] [place], [address] Potassium [Moles/Vol] 3.6 mmol/L Normal 3.3-5.1 [facility] Comment on above: Result Comment: Hemo lysis present, Results??could be affected. ?? Performed By: #### L 500.2500 #### [facility] [address] [place], [address] Sodium [Moles/Vol] 136 mmol/L Normal 133-145 [facility] Comment on above: Performed By: #### L 500.2500 #### [facility] [address] [place], [address] Urea nitrogen [Mass/Vol] 17 mg/dL Normal 4-19 [facility] Comment on above: Performed By: #### L 500.2500 #### [facility] [address] [place], [address] Absolute lymphocyte countOrd ered By: Sbe Cortes on 08-08-2024 Lymphocytes Auto (Unsp spec) [#/Vol] 1.91 10*3/uL 0.83-4.51 [facility] Absolute neutrophil countOrd ered By: Seb Cortes on 08-08-2024 Neutrophils (Bld) [#/Vol] 7.2 10*3/uL 2.0-7.7 [facility] Automated lymphocyte count a s percentage of total leukocytesOrdered By: Seb Cortes on 08-08-2024 Lymphocytes/100 WBC Auto (Unsp spec) 18.1 % Low 19-41 [facility] Basic Metabolic Profile (BMP )on 08-08-2024 BUN/CRE 16.3 RATIO Normal 10-20 [facility] Comment on above: Performed By: #### L 100.0100, L500.2500 #### [facility] [address] [place], [address] Calcium [Mass/Vol] 8.8 mg/dL Normal 7.6-11.0 [facility] Comment on above: Performed By: #### L 100.0100, L500.2500 #### [facility] [address] [place] [address] [place], [address] Chloride [Moles/Vol] 100 mmol/L Normal 98-108 [facility] Comment on above: Performed By: #### L 100.0100, L500.2500 #### [facility] [address] [place] [address] [place], [address] CO2 [Moles/Vol] 27.3 mmol/L Normal 21.0-32.0 [facility] Comment on above: Performed By: #### L 100.0100, L500.2500 #### [facility] [address] [place] [address] [place], [address] Creatinine [Mass/Vol] 0.94 mg/dL Normal 0.70-1.20 [facility] Comment on above: Performed By: #### L 100.0100, L500.2500 #### [facility] [address] [place] [address] [place], [address] ECRCL 144.36 ml/min Normal 50-250 [facility] Comment on above: Performed By: #### L 100.0100, L500.2500 #### [facility] [address] [place] [address] [place], [address] GAP 11 Normal 5-15 [facility] Comment on above: Performed By: #### L 100.0100, L500.2500 #### [facility] [address] [place] [address] [place], [address] GFR/1.73 sq M.predicted among non-blacks MDRD (S/P/Bld) [Vol rate/Area] 89 mL/min/{1.73_m2} Normal >60 [facility] Comment on above: Result Comment: mL/m in/1.73m2 CKD-EPI Creatinine Equation (2020) Performed By: #### L 100.0100, L500.2500 #### [facility] [address] [place], [address] Glucose [Mass/Vol] 116 mg/dL High 70-99 [facility] Comment on above: Performed By: #### L 100.0100, L500.2500 #### [facility] [address] [place], [address] Potassium [Moles/Vol] 3.4 mmol/L Normal 3.3-5.1 [facility] Comment on above: Performed By: #### L 100.0100, L500.2500 #### [facility] [address] [place], [address] Sodium [Moles/Vol] 138 mmol/L Normal 133-145 [facility] Comment on above: Performed By: #### L 100.0100, L500.2500 #### [facility] [address] [place], [address] Urea nitrogen [Mass/Vol] 15 mg/dL Normal 4-19 [facility] Comment on above: Performed By: #### L 100.0100, L500.2500 #### [facility] [address] [place], [address] Basophil percentageOrdered B y: Seb Sebastian on 08-08-2024 Basophils/100 WBC (Bld) 0.5 % 0-1 [facility] CBC W/Diff, Automatedon 06 Absolute Lymph 1.91 X10 3/uL Normal 0.83-4.51 [facility] Comment on above: Performed By: #### L 100.0100, L500.2500 #### [facility] [address] [place], [address] Absolute Neut 7.2 X10 3/uL Normal 2.0-7.7 [facility] Comment on above: Performed By: #### L 100.0100, L500.2500 #### [facility] [address] [place], [address] Basophils/100 WBC (Bld) 0.5 % Normal 0-1 [facility] Comment on above: Performed By: #### L 100.0100, L500.2500 #### [facility] [address] [place], [address] Eosinophils/100 WBC (Bld) 0.8 % Normal 0-5 [facility] Comment on above: Performed By: #### L 100.0100, L500.2500 #### [facility] [address] [place], [address] Erythrocyte distribution width (RBC) [Ratio] 13.2 % Normal 11.6-14.6 [facility] Comment on above: Performed By: #### L 100.0100, L500.2500 #### [facility] [address] [place], [address] Hematocrit (Bld) [Volume fraction] 38.4 % Low 40-54 [facility] Comment on above: Performed By: #### L 100.0100, L500.2500 #### [facility] [address] [place], [address] Hemoglobin (Bld) [Mass/Vol] 13.1 g/dL Normal 13.0-16.5 [facility] Comment on above: Performed By: #### L 100.0100, L500.2500 #### [facility] [address] [place], [address] IG% 0.800 Normal 0.0-0.9 [facility] Comment on above: Result Comment: IG% - Immature Granulocytes (promyelocytes, myelocytes and metamyelocytes) > 1% indicates that a LEFT SHIFT is Present. Performed By: #### L 100.0100, L500.2500 #### [facility] [address] [place], [address] Lymphocytes/100 WBC (Bld) 18.1 % Low 19-41 [facility] Comment on above: Performed By: #### L 100.0100, L500.2500 #### [facility] [address] [place], [address] MCH (RBC) [Entitic mass] 31.8 pg Normal 27.0-32.0 [facility] Comment on above: Performed By: #### L 100.0100, L500.2500 #### [facility] [address] [place], [address] MCHC (RBC) [Mass/Vol] 34.1 g/dL Normal 32-36 [facility] Comment on above: Performed By: #### L 100.0100, L500.2500 #### [facility] [address] [place], [address] MCV (RBC) [Entitic vol] 93.2 fL Normal 80-94 [facility] Comment on above: Performed By: #### L 100.0100, L500.2500 #### [facility] [address] [place], [address] Monocytes/100 WBC (Bld) 11.4 % High 0-10 [facility] Comment on above: Performed By: #### L 100.0100, L500.2500 #### [facility] [address] [place], [address] Neutrophils/100 WBC (Bld) 68.4 % Normal 47-70 [facility] Comment on above: Performed By: #### L 100.0100, L500.2500 #### [facility] [address] [place], [address] Nucleated RBC (Bld) [#/Vol] 0 10*3/uL Normal 0-5 [facility] Comment on above: Performed By: #### L 100.0100, L500.2500 #### [facility] [address] [place] [address] [place], [address] Platelet mean volume (Bld) [Entitic vol] 9.3 fL Normal 6.2-12.0 [facility] Comment on above: Performed By: #### L 100.0100, L500.2500 #### [facility] [address] [place] [address] [place], [address] Platelets (Bld) [#/Vol] 138 10*3/uL Low 150-450 [facility] Comment on above: Performed By: #### L 100.0100, L500.2500 #### [facility] [address] [address] [place], [address] RBC (Bld) [#/Vol] 4.12 10*6/uL Low 4.6-6.2 [facility] Comment on above: Performed By: #### L 100.0100, L500.2500 #### [facility] [address] [place] [address] [place], [address] RDW SD 44.9 fl High 35.1-43.9 [facility] Comment on above: Performed By: #### L 100.0100, L500.2500 #### [facility] [address] [place] [address] [place], [address] WBC (Bld) [#/Vol] 10.5 10*3/uL Normal 4.4-11.0 [facility] Comment on above: Performed By: #### L 100.0100, L500.2500 #### [facility] [address] [address] [place], [address] Electrocardiogram reportOrde red By: Richi Zimmerman on 08-08-[address] [facility] [address] [place] [address] 12 Lead EKG 08/07/24 1119 MR#: [id number] Acct: [id number] Name: RICHI HU Rep #:[id number] : 1955 69 From: Richi alejandre MD Attending Dr: Dr. Seb Cortes DO Status: ADM IN Ordering Dr: David Stallworth DO Date: 10/24 Location: [facility] Sex: M C Admitted: 08/07/24 Test Reason : SOB Blood Pressure : */* mmHG Vent. Rate : 78 BPM Atrial Rate : 375 BPM P-R Int : * ms QRS Dur : 100 ms QT Int : 432 ms P-R-T Axes : * -21 32 degrees QTcB Int : 492 ms Atrial flutter with variable A-V block with premature ventricular or aberrantly conducted complexes Low voltage QRS Nonspecific T wave abnormality Abnormal ECG Confirmed by Richi Zimmerman ([id number]), legal editor CINDY CARLTON ([id number]) on 08/08/2024 9:35:57 AM Referred By: David Stallworth Confirmed By: Richi Zimmerman 08/08/24 0936 Date _ Richi Zimmerman MD CC: Dr. Seb Cortes DO; Dr. Omid Colindres MD; Dr. David Stallworth DO ~ Signed [facility] Other Phone: Eosinophil percentageOrdered By: Seb Cortes on 08-08-2024 Eosinophils/100 WBC (Bld) 0.8 % 0-5 [facility] Erythrocyte distribution wid th ratioOrdered By: Seb Cortes on 08-08-2024 Erythrocyte distribution width (RBC) [Ratio] 13.2 % 11.6-14.6 [facility] Erythrocyte distribution wid th standard deviationOrdered By: Seb Cortes on 08-08-2024 Erythrocyte distribution width (RBC) [Ratio] 44.9 fl High 35.1-43.9 [facility] Hematocrit Auto (Bld) [Volum e fraction]Ordered By: Seb Cortes on 08-08-2024 Hematocrit (Bld) [Volume fraction] 38.4 % Low 40-54 [facility] Hemoglobin measurementOrdere d By: Seb Cortes on 08-08-2024 Hemoglobin (Bld) [Mass/Vol] 13.1 g/dL 13.0-16.5 [facility] Immature granulocytes/100 WB C Auto (Bld)Ordered By: Seb Cortes on 08-08-2024 Immature granulocytes/100 WBC (Bld) 0.800 % 0.0-0.9 [facility] Comment on above: IG% - Immature Granu locytes (promyelocytes, myelocytes and metamyelocytes) > 1% indicates that a LEFT SHIFT is Present. MCV (mean corpuscular volume ) determinationOrdered By: Seb Cortes on 08-08-2024 MCV (RBC) [Entitic vol] 93.2 fL 80-94 [facility] Mean corpuscular hemoglobin (MCH) determinationOrdered By: Seb Cortes on 08-08-2024 MCH (RBC) [Entitic mass] 31.8 pg 27.0-32.0 [facility] Mean corpuscular hemoglobin concentration (MCHC) determinationOrdered By: Seb Cortes on 08-08-2024 MCHC (RBC) [Mass/Vol] 34.1 g/dL 32-36 [facility] Mean platelet volume determi nationOrdered By: Seb Cortes on 08-08-2024 Platelet mean volume (Bld) [Entitic vol] 9.3 fL 6.2-12.0 [facility] Monocyte percentageOrdered B y: Seb Cortes on 08-08-2024 Monocytes/100 WBC (Bld) 11.4 % High 0-10 [facility] Neutrophil percentageOrdered By: Seb Cortes on 08-08-2024 Neutrophils/100 WBC (Bld) 68.4 % 47-70 [facility] Nucleated red blood cell per centageOrdered By: Seb Cortes on 08-08-2024 Nucleated RBC/100 WBC (Bld) [Ratio] 0 % 0-5 [facility] Platelet countOrdered By: Lisette Cortes on 08-08-2024 Platelets (Bld) [#/Vol] 138 10*3/uL Low 150-450 [facility] RBC Auto (Bld) [#/Vol]Ordere d By: Seb Cortes on 08-08-2024 RBC (Bld) [#/Vol] 4.12 10*6/uL Low 4.6-6.2 [facility] White blood cell (WBC) count Ordered By: Seb Cortes on 08-08-2024 WBC (Bld) [#/Vol] 10.5 10*3/uL 4.4-11.0 [facility] 12 Lead EKGon 08-07-2024 12 Lead EKG [facility] Services [address] [place] [address] 12 Lead EKG 08/07/24 1119 MR#: [id number] Acct: [id number] Name: RICHI HU Rep #: [id number] : 1955 69 From: Richi Zimmerman MD Attending Dr: Dr. Seb Cortes DO Status: A DM IN Ordering Dr: David Stallworth DO Date: 08/07/24 Location: [facility] Sex: M C Admitted: 08/07/24 Test Reason : SOB Blood Pressure : */* mmHG Vent. Rate : 78 BPM Atrial Rate : 375 BPM P-R Int : * ms QRS Dur : 100 ms QT Int : 432 ms P-R-T Axes : * -21 32 degrees QTcB Int : 492 ms Atrial flutter with variable A-V block with premature ventricular or aberrantly conducted complexes Low voltage QRS Nonspecific T wave abnormality Abnormal ECG Confirmed by Richi Zimmerman ([id number]), legal editor CINDY CARLTON ([id number]) on 08/08/2024 9:35:57 AM Referred By: David Stallworth Confirmed By: Richi Zimmerman 08/08/24 0936 Date Richi Zimmerman MD CC: Dr. Seb Cortes DO; Dr. Omid Colindres MD; Dr. David Stallworth DO Signed Normal [facility] Absolute lymphocyte countOrd ered By: David Stallworth on 08-07-2024 Lymphocytes Auto (Unsp spec) [#/Vol] 1.65 10*3/uL 0.83-4.51 [facility] Absolute neutrophil countOrd ered By: David Stallworth on 08-07-2024 Neutrophils (Bld) [#/Vol] 9.0 10*3/uL High 2.0-7.7 [facility] Anion gap in Serum or Plasma Ordered By: Remus Ungorlando on 08-07-2024 Anion gap [Moles/Vol] 14 mmol/L 5-15 [facility] Automated lymphocyte count a s percentage of total leukocytesOrdered By: Remus Basim on 08-07-2024 Lymphocytes/100 WBC Auto (Unsp spec) 14.0 % Low 19-41 [facility] BUN/creatinine ratioOrdered By: Remus Basim on 08-07-2024 Urea nitrogen/Creatinine [Mass ratio] 21.6 mg/mg High 10-20 [facility] Basic Metabolic Profile (BMP )on 08-07-2024 BUN/CRE 21.6 RATIO High 10- [facility] Comment on above: Performed By: #### L 503.6005, L100.0100, L503.7505, L500.2500 #### [facility] [address] [place], [address] Calcium [Mass/Vol] 9.3 mg/dL Normal 7.6-11.0 [facility] Comment on above: Performed By: #### L 503.6005, L100.0100, L503.7505, L500.2500 #### [facility] [address] [place], [address] Chloride [Moles/Vol] 100 mmol/L Normal 98-108 [facility] Comment on above: Performed By: #### L 503.6005, L100.0100, L503.7505, L500.2500 #### [facility] [address] [place], [address] CO2 [Moles/Vol] 21.5 mmol/L Normal 21.0-32.0 [facility] Comment on above: Performed By: #### L 503.6005, L100.0100, L503.7505, L500.2500 #### [facility] [address] [place], [address] Creatinine [Mass/Vol] 0.81 mg/dL Normal 0.70-1.20 [facility] Comment on above: Performed By: #### L 503.6005, L100.0100, L503.7505, L500.2500 #### [facility] [address] [place], [address] ECRCL 163.39 ml/min Normal 50-250 [facility] Comment on above: Performed By: #### L 503.6005, L100.0100, L503.7505, L500.2500 #### [facility] [address] [place], [address] GAP 14 Normal 5-15 [facility] Comment on above: Performed By: #### L 503.6005, L100.0100, L503.7505, L500.2500 #### [facility] [address] [place], [address] GFR/1.73 sq M.predicted among non-blacks MDRD (S/P/Bld) [Vol rate/Area] 96 mL/min/{1.73_m2} Normal >60 [facility] Comment on above: Result Comment: mL/m in/1.73m2 CKD-EPI Creatinine Equation (2020) Performed By: #### L 503.6005, L100.0100, L503.7505, L500.2500 #### [facility] [address] [place], [address] Glucose [Mass/Vol] 99 mg/dL Normal 70-99 [facility] Comment on above: Performed By: #### L 503.6005, L100.0100, L503.7505, L500.2500 #### [facility] [address] [place], [address] Potassium [Moles/Vol] 3.5 mmol/L Normal 3.3-5.1 [facility] Comment on above: Performed By: #### L 503.6005, L100.0100, L503.7505, L500.2500 #### [facility] [address] [place], [address] Sodium [Moles/Vol] 135 mmol/L Normal 133-145 [facility] Comment on above: Performed By: #### L 503.6005, L100.0100, L503.7505, L500.2500 #### [facility] [address] [place], [address] Urea nitrogen [Mass/Vol] 18 mg/dL Normal 4-19 [facility] Comment on above: Performed By: #### L 503.6005, L100.0100, L503.7505, L500.2500 #### [facility] [address] [place], [address] Basophil percentageOrdered B y: David Stallworth on 08-07-2024 Basophils/100 WBC (Bld) 0.3 % 0-1 [facility] Blood cultureOrdered By: Chhaya Stallworth on 08-07-2024 Bacteria identified Cx Nom (Bld) No growth in 5 days. [facility] Bacteria identified Cx Nom (Bld) No growth in 5 days. [facility] Brain/Head without Contrasto n 08-07-2024 Brain/Head without Contrast [facility] Imaging Services [address] [place] [address] Brain/Head without Contrast MR#: [id number] Acct: [id number] Name: RICHI HU Rep #: [id number] : 1955 M 69 From: Mehran Mcclain DO PCP: Dr. Omid Colindres MD Status: REG ER Study: Brain/Head without Contrast Date of Exam: 10/24 Exam# [id number] Ordering Dr: David Stallworth DO PROCEDURE: BRAIN/HEAD WITHOUT CONTRAST 08/07/2024 REASON FOR EXAM: HEADACHE, ON XARELTO TECHNIQUE: Head CT without intravenous contrast. Coronal and Sagittal reconstruction series were provided. One or more dose reduction techniques were used (e.g., Automated exposure control, adjustment of the mA and/or kV according to patient size, use of iterative reconstruction technique. RADIATION DOSE SUMMARY: CTDlvol: 44.99 mGy DLP: 914.22 mGycm COMPARISON: None FINDINGS: Brain: No intra-axial or extra-axial hemorrhage. No mass, mass effect or midline shift. No obvious ischemia or infarct. CSF Spaces: Unremarkable Sinuses/Mastoids: Small mucous retention cysts in the left maxillary sinus. Remaining sinuses are clear. Bones: Unremarkable. CT/Brain/Head without Contrast IMPRESSION: No acute process detected. Reading Location: [facility] CC: Dr. Omid Colindres MD; Dr. David Stallworth DO Granulating Blender: Signed Normal [facility] CBC W/Diff, Automatedon 06-0 Absolute Lymph 1.65 X10 3/uL Normal 0.83-4.51 [facility] Comment on above: Performed By: #### L 503.6005, L100.0100, L503.7505, L500.2500 #### [facility] [address] [place], [address] Absolute Neut 9.0 X10 3/uL High 2.0-7.7 [facility] Comment on above: Performed By: #### L 503.6005, L100.0100, L503.7505, L500.2500 #### [facility] [address] [place], [address] Basophils/100 WBC (Bld) 0.3 % Normal 0-1 [facility] Comment on above: Performed By: #### L 503.6005, L100.0100, L503.7505, L500.2500 #### [facility] [address] [place], [address] Eosinophils/100 WBC (Bld) 0.5 % Normal 0-5 [facility] Comment on above: Performed By: #### L 503.6005, L100.0100, L503.7505, L500.2500 #### [facility] [address] [place], [address] Erythrocyte distribution width (RBC) [Ratio] 13.2 % Normal 11.6-14.6 [facility] Comment on above: Performed By: #### L 503.6005, L100.0100, L503.7505, L500.2500 #### [facility] [address] [place], [address] Hematocrit (Bld) [Volume fraction] 42.5 % Normal 40-54 [facility] Comment on above: Performed By: #### L 503.6005, L100.0100, L503.7505, L500.2500 #### [facility] [address] [place], [address] Hemoglobin (Bld) [Mass/Vol] 14.6 g/dL Normal 13.0-16.5 [facility] Comment on above: Performed By: #### L 503.6005, L100.0100, L503.7505, L500.2500 #### [facility] [address] [place], [address] IG% 0.400 Normal 0.0-0.9 [facility] Comment on above: Result Comment: IG% - Immature Granulocytes (promyelocytes, myelocytes and metamyelocytes) > 1% indicates that a LEFT SHIFT is Present. Performed By: #### L 503.6005, L100.0100, L503.7505, L500.2500 #### [facility] [address] [place], [address] Lymphocytes/100 WBC (Bld) 14.0 % Low 19-41 [facility] Comment on above: Performed By: #### L 503.6005, L100.0100, L503.7505, L500.2500 #### [facility] [address] [place], [address] MCH (RBC) [Entitic mass] 31.9 pg Normal 27.0-32.0 [facility] Comment on above: Performed By: #### L 503.6005, L100.0100, L503.7505, L500.2500 #### [facility] [address] [place], [address] MCHC (RBC) [Mass/Vol] 34.4 g/dL Normal 32-36 [facility] Comment on above: Performed By: #### L 503.6005, L100.0100, L503.7505, L500.2500 #### [facility] [address] [place], [address] MCV (RBC) [Entitic vol] 92.8 fL Normal 80-94 [facility] Comment on above: Performed By: #### L 503.6005, L100.0100, L503.7505, L500.2500 #### [facility] [address] [place], [address] Monocytes/100 WBC (Bld) 8.6 % Normal 0-10 [facility] Comment on above: Performed By: #### L 503.6005, L100.0100, L503.7505, L500.2500 #### [facility] [address] [place], [address] Neutrophils/100 WBC (Bld) 76.2 % High 47-70 [facility] Comment on above: Performed By: #### L 503.6005, L100.0100, L503.7505, L500.2500 #### [facility] [address] [place], [address] Nucleated RBC (Bld) [#/Vol] 0 10*3/uL Normal 0-5 [facility] Comment on above: Performed By: #### L 503.6005, L100.0100, L503.7505, L500.2500 #### [facility] [address] [place], [address] Platelet mean volume (Bld) [Entitic vol] 9.7 fL Normal 6.2-12.0 [facility] Comment on above: Performed By: #### L 503.6005, L100.0100, L503.7505, L500.2500 #### [facility] [address] [place], [address] Platelets (Bld) [#/Vol] 165 10*3/uL Normal 150-450 [facility] Comment on above: Performed By: #### L 503.6005, L100.0100, L503.7505, L500.2500 #### [facility] [address] [place], [address] RBC (Bld) [#/Vol] 4.58 10*6/uL Low 4.6-6.2 [facility] Comment on above: Performed By: #### L 503.6005, L100.0100, L503.7505, L500.2500 #### [facility] [address] [place], [address] RDW SD 44.8 fl High 35.1-43.9 [facility] Comment on above: Performed By: #### L 503.6005, L100.0100, L503.7505, L500.2500 #### [facility] [address] [place], [address] WBC (Bld) [#/Vol] 11.8 10*3/uL High 4.4-11.0 [facility] Comment on above: Performed By: #### L 503.6005, L100.0100, L503.7505, L500.2500 #### [facility] [address] [place], [address] Carbon dioxide, total [Moles /volume] in Central venous bloodOrdered By: David Stallworth on 08-07-2024 CO2 [Moles/Vol] 21.5 mmol/L 21.0-32.0 [facility] Chest 1 View (Portable)on Chest 1 View (Portable) [facility] Imaging Services [address] [place] [address] Chest 1 View (Portable) MR#: [id number] Acct: [id number] Name: RICHI HU Rep #: [id number] : 1955 M 69 From: Fermin cancino MD PCP: Dr. Omid Colindres MD Status: REG ER Study: Chest 1 View (Portable) Date of Exam: 08/07/24 Exam# [id number] Ordering Dr: David Stallworth DO PROCEDURE: CHEST 1 VIEW (PORTABLE) 08/07/2024 REASON FOR EXAM: DYSPNEA TECHNIQUE: Frontal view of the chest. COMPARISON: 03/10/2020 FINDINGS: Hardware: None Heart: Heart size is moderately enlarged. Lungs: No focal consolidation. No pneumothorax. No pleural effusion. Bones: The bones are unremarkable. Other: RAD/Chest 1 View (Portable) IMPRESSION: No Acute Findings. Moderate cardiomegaly. Reading Location[facility] CC: Dr. Omid Colindres MD; Dr. David Stallworth DO Granulating Blender: Signed Normal [facility] Chloride assayOrdered By: Katherin Stallworth on 08-07-2024 Chloride [Moles/Vol] 100 mmol/L 98-108 [facility] Emergency Department Summary on 08-07-2024 Emergency Department Summary [facility] Medical Records Department [address] [place] [address] Emergency Department Summary 08/07/24 MR#: [id number] Acct: [id number] Name: RICHI HU Rep #: [id number] : 1955 69 From: David Stallworth DO PCP: Dr. Omid Colindres MD Status:ADM IN Location: [facility] [id number] HPI History of Present Illness Chief Complaint: Shortness of Breath Detail of Chief Complaint: Not feeling well x 5 days Informant: patient Narrative Narrative: Patient presents the emergency department with complaint of feeling poorly for the last 5 days. She has had some chills and some generalized weakness. Recently developed a cough and sore throat and headache. No known fever. Also feels short of breath with activity. He has history of A-fib with prior ablation but 2 months ago went back into A-fib. He is anticoagulated with Xarelto. He denies chest pain. [facility] Medical History Impacted cerumen of both ears [...] Essential (primary) hypertension Back pain Knee pain Home Medications ???Medication ???Instructions ???Recorded ???Last Taken ???Type cholecalciferol (vitamin D3) 25 25 mcg PO DAILY 07/25/20 Unknown H istory mcg (1,000 unit) capsule multivitamin (Multiple Vitamins 1 tab PO DAILY 07/25/20 Unknown Hi story tablet) latanoprost 0.005 % eye drops 1 drp ophthalmic (eye) DAILY 12/02 Unknown History tramadol 50 mg tablet 50 mg PO ONCE PRN pain 07/15/22 Un known History vitamin B complex 1 tab PO DAILY 07/09/23 Unknown Hi story rivaroxaban 20 mg tablet (Xarelto) 20 mg PO .COMPLEX #90 tabs 07/27 Unknown Rx furosemide 40 mg tablet 40 mg PO DAILY #90 tabs 07/28/24 U nknown Rx losartan 50 mg tablet 50 mg PO DAILY #90 tabs 07/28/24 U nknown Rx magnesium oxide 400 mg (241.3 mg 400 mg PO BID #180 tabs 07/28/24 U nknown Rx magnesium) tablet sotalol 120 mg tablet 120 mg PO BID #180 tabs 07/28/24 U nknown Rx spironolactone 25 mg tablet 25 mg PO DAILY #90 tabs 07/28/24 U nknown Rx Allergy/AdvReac Type Severity Reaction Status Date / Time Penicillins Allergy Anaphylaxis Verified 08/07/24 11:09 Sulfa (Sulfonamide Allergy Hives Verified 08/07/24 11:09 Antibiotics) Family History Father Cancer glioblastoma Mother No problems noted. Surgical History History of cholecystectomy (12/31/21) History of radiofrequency ablation procedure for cardiac arrhythmia (11/29/20) History of colonoscopy (04/27/20) History of left heart catheterization (11/16/19) History of cardioversion (12/25/20) History of total right knee replacement History of tonsillectomy and adenoidectomy History of knee surgery History of back surgery Social History household members: spouse and children housing: house Smoking Status: Never smoker alcohol intake: never what type of physical activity do you participate in: none do you feel safe at home: Yes ROS ROS ED Review of Systems ROS Unobtainable: other Constitutional Constitutional ED: Reports chills and lethargy; Denies fever(s), sweats or weight loss Eyes Eyes: Denies blurry vision, change in vision or diplopia ENT ENT ED: Denies rhinorrhea or sore throat Cardiovascular Cardiovascular: Denies chest pain, orthopnea or racing heartbeat Respiratory/Chest Respiratory/Chest: Reports cough, dyspnea and dyspnea on exertion; Denies orthopnea or sputum Gastrointestinal Gastrointestinal: Denies abdominal pain, diarrhea, nausea or vomiting Genitourinary Genitourinary ED: Denies dysuria, hematuria or urinary frequency Musculoskeletal Musculoskeletal: Reports other; Denies arthralgias, back pain, myalgias or neck pain Integumentary Reports other Details: Redness and swelling to right leg ; Denies abscess, Abrasions or rash Neurologic Neurologic: Denies headache(s) or weakness Psychiatric Psychiatric: Denies anxiety, depression or suicidal thoughts Endocrine Endocrinology: Denies polydipsia, polyphagia or polyuria Hematol (more content not included)... Normal [facility] Eosinophil percentageOrdered By: David Stallworth on 08-07-2024 Eosinophils/100 WBC (Bld) 0.5 % 0-5 [facility] Erythrocyte distribution wid th ratioOrdered By: David Stallworth on 08-07-2024 Erythrocyte distribution width (RBC) [Ratio] 13.2 % 11.6-14.6 [facility] Erythrocyte distribution wid th standard deviationOrdered By: David Stallworth on 08-07-2024 Erythrocyte distribution width (RBC) [Ratio] 44.8 fl High 35.1-43.9 [facility] Glomerular filtration rate ( GFR) estimation/1.73 sq m using serum, plasma, or whole bOrdered By: David Stallworth on 08-07-2024 GFR/1.73 sq M.predicted among non-blacks MDRD (S/P/Bld) [Vol rate/Area] 96 mL/min/{1.73_m2} >60 [facility] Comment on above: mL/min/1.73m2 CKD-EP I Creatinine Equation (2020) H AND P Exam - [facility] 08-07-2024 H&P Exam - Hospitalist [facility] Medical Records Department [address] [place] [address] H P Exam - Hospitalist 08/07/24 1507 MR#: [id number] Acct: [id number] Name: RICHI HU Rep #: [id number] : 1955 69 From: Seb Cortes DO PCP: Dr. Omid Colindres MD Status:ADM IN Location: [facility] UK043-0 HPI - General General Date of Admission: 08/07/24 Date of Service: 08/07/24 Chief Complaint: Shortness of breath, right leg redness/pain HPI Narrative RICHI HU, is a 69 M who presents to the emergency room at [facility] with complaints of shortness of breath particularly on exertion and right leg redness x 2 days. Patient has a history of atrial fibrillation and is currently on Xarelto. Patient denies any fever, he denies any chills. Labs were obtained in the emergency room, white blood cell count was 11.8, chemistry profile was unremarkable, patient's beta natruretic peptide was 706. Patient's pulse ox on room air was above 90%, he did not desaturate on activity. Patient had chest x-ray performed which showed no evidence of CHF. Examination of the right leg revealed a reddened area along with tenderness on the lateral right thigh extending into the right proximal leg. There is generalized edema in both lower extremities. Patient will be admitted for right leg cellulitis and anasarca, he will be placed on IV Lasix and he received IV clindamycin. Labs will be monitored. [facility] Medical History (Updated 08/07/24 @ 14:02 by Liberty Lucas) CPAP (continuous positive airway pressure) dependence Sleep apnea Congestive heart failure (CHF) Hypertension Impacted cerumen of both ears Cholecystitis History [...] Essential (primary) hypertension Back pain Knee pain Home Medications ???Medication ???Instructions ???Recorded ???Last Taken ???Type cholecalciferol (vitamin D3) 25 25 mcg PO DAILY vitamin 07/25/20 U nknown History mcg (1,000 unit) capsule multivitamin (Multiple Vitamins 1 tab PO DAILY vitamin 07/25/20 Un known History tablet) latanoprost 0.005 % eye drops 1 drp ophthalmic (eye) DAILY 12/02 Unknown History glaucoma tramadol 50 mg tablet 50 mg PO ONCE PRN pain 07/15/22 Un known History vitamin B complex 1 tab PO DAILY vitamin 07/09/23 Un known History rivaroxaban 20 mg tablet (Xarelto) 20 mg PO .COMPLEX #90 tabs 07/27 Unknown Rx furosemide 40 mg tablet 40 mg PO DAILY #90 tabs 07/28/24 U nknown Rx losartan 50 mg tablet 50 mg PO DAILY #90 tabs 07/28/24 U nknown Rx magnesium oxide 400 mg (241.3 mg 400 mg PO BID #180 tabs 07/28/24 U nknown Rx magnesium) tablet sotalol 120 mg tablet 120 mg PO BID #180 tabs 07/28/24 U nknown Rx spironolactone 25 mg tablet 25 mg PO DAILY #90 tabs 07/28/24 U nknown Rx Allergy/AdvReac Type Severity Reaction Status Date / Time Penicillins Allergy Anaphylaxis Verified 08/07/24 11:09 Sulfa (Sulfonamide Allergy Hives Verified 08/07/24 11:09 Antibiotics) Family History Father Cancer glioblastoma Mother No problems noted. Surgical History History of cholecystectomy (12/31/21) History of radiofrequency ablation procedure for cardiac arrhythmia (11/29/20) History of colonoscopy (04/27/20) History of left heart catheterization (11/16/19) History of cardioversion (12/25/20) History of total right knee replacement History of tonsillectomy and adenoidectomy History of knee surgery History of back surgery Social History household members: spouse and children housing: house Smoking Status: Never smoker alcohol intake: never what type of physical activity do you participate in: none do you feel safe at home: Yes ROS Constitutional Constitutional: Denies anorexia, change in weight, chills, fatigue, fever(s), malaise, night sweats or weakness Eyes Eyes: Denies blurry vision, change in vision, discharge from eye(s) or eye pain Cardiovascular Cardiovascular: Reports edema and palpitations; Denies chest pain or claudication Respiratory/Chest Respiratory/Chest: Reports shortness of breath with (more content not included)... Normal [facility] Hematocrit Auto (Bld) [Volum e fraction]Ordered By: David Stallworth on 08-07-2024 Hematocrit (Bld) [Volume fraction] 42.5 % 40-54 [facility] Hemoglobin measurementOrdere d By: David Stallworth on 08-07-2024 Hemoglobin (Bld) [Mass/Vol] 14.6 g/dL 13.0-16.5 [facility] Immature granulocytes/100 WB C Auto (Bld)Ordered By: David Stallworth on 08-07-2024 Immature granulocytes/100 WBC (Bld) 0.400 % 0.0-0.9 [facility] Comment on above: IG% - Immature Granu locytes (promyelocytes, myelocytes and metamyelocytes) > 1% indicates that a LEFT SHIFT is Present. Influenza virus A and B and SARS-CoV-2 (COVID-19) and Respiratory syncytial virus RNAOrdered By: David Stallworth on 08-07-2024 SARS-CoV-2 (COVID-19) RNA CARA+probe Ql (Unsp spec) [facility] L499.0042on 08-07-2024 Trop T High Sen 8 ng/L Normal <=22 [facility] Comment on above: Performed By: #### L 499.0042 #### [facility] [address] [place], [address] L499.0043on 08-07-2024 Trop T High Sen 17 ng/L Normal <=22 [facility] Comment on above: Performed By: #### L 500.2500, L100.0100 #### [facility] [address] [place], [address] L501.4021on 08-07-2024 Trop T High Sen 9 ng/L Normal <=22 [facility] Comment on above: Performed By: #### L 500.2500, L100.0100 #### [facility] [address] [place], [address] L503.7505on 08-07-2024 Natriuretic peptide B (Bld) [Mass/Vol] 706 pg/mL Normal <=900 [facility] Comment on above: Result Comment: Hear t Failure Unlikely: < 300 pg/mL Heart Failure Likely < 50 Years: > 450 pg/mL 50-75 Years: > 900 pg/mL >75 Years: > 1800 pg/mL Performed By: #### L 500.2500, L100.0100 #### [facility] [address] [place], [address] Lactic Acidon 08-07-2024 Lactate [Moles/Vol] 1.6 mmol/L Normal 0.0-2.0 [facility] Comment on above: Order Comment: Y Performed By: #### L 500.2500, L100.0100 #### [facility] [address] [place], [address] Lactic acid measurementOrder ed By: Remus Basim on 08-07-2024 Lactate [Moles/Vol] 1.6 mmol/L 0.0-2.0 [facility] M100.678on 08-07-2024 M100.678 Pending SARS-CoV-2 (COVID 19) Negative INFLUENZA A Negative INFLUENZA B Negative RSV PCR Negative Normal [facility] Comment on above: Performed By: #### L 500.2500, L100.0100 #### [facility] [address] [place], [address] MCV (mean corpuscular volume ) determinationOrdered By: Remus Basim on 08-07-2024 MCV (RBC) [Entitic vol] 92.8 fL 80-94 [facility] Mean corpuscular hemoglobin (MCH) determinationOrdered By: Remus Ungorlando on 08-07-2024 MCH (RBC) [Entitic mass] 31.9 pg 27.0-32.0 [facility] Mean corpuscular hemoglobin concentration (MCHC) determinationOrdered By: Remus Ungorlando on 08-07-2024 MCHC (RBC) [Mass/Vol] 34.4 g/dL 32-36 [facility] Mean platelet volume determi nationOrdered By: Remus Ungorlando on 08-07-2024 Platelet mean volume (Bld) [Entitic vol] 9.7 fL 6.2-12.0 [facility] Monocyte percentageOrdered B y: Remus Ungorlando on 08-07-2024 Monocytes/100 WBC (Bld) 8.6 % 0-10 [facility] Natriuretic peptide.B prohor calista N-Terminal [Mass/volume] in Serum or PlasmaOrdered By: David Stallworth on 08-07-2024 Natriuretic peptide.B prohormone N-Terminal [Mass/Vol] 706 pg/mL <900 [facility] Comment on above: Heart Failure Unlike ly: < 300 pg/mLHeart Failure Likely< 50 Years: > 450 pg/mL50-75 Years: > 900 pg/mL>75 Years: > 1800 pg/mL Neutrophil percentageOrdered By: David Stallworth on 08-07-2024 Neutrophils/100 WBC (Bld) 76.2 % High 47-70 [facility] Nucleated red blood cell per centageOrdered By: David Stallworth on 08-07-2024 Nucleated RBC/100 WBC (Bld) [Ratio] 0 % 0-5 [facility] Platelet countOrdered By: Katherin Stallworth on 08-07-2024 Platelets (Bld) [#/Vol] 165 10*3/uL 150-450 [facility] Potassium measurement (mass/ volume)Ordered By: David Stallworth on 08-07-2024 Potassium (Unsp spec) [Mass/Vol] 3.5 mmol/L 3.3-5.1 [facility] RBC Auto (Bld) [#/Vol]Ordere d By: David Stallworth on 08-07-2024 RBC (Bld) [#/Vol] 4.58 10*6/uL Low 4.6-6.2 [facility] Serum creatinine measurement (mass/volume)Ordered By: David Stallworth on 08-07-2024 Creatinine [Mass/Vol] 0.81 mg/dL 0.70-1.20 [facility] Serum glucose measurement (m ass/volume)Ordered By: David Stallworth on 08-07-2024 Glucose [Mass/Vol] 99 mg/dL 70-99 [facility] Serum or plasma calcium emre urement (mass/volume)Ordered By: David Stallworth on 08-07-2024 Calcium [Mass/Vol] 9.3 mg/dL 7.6-11.0 [facility] Serum or plasma urea nitroge n measurement (mass/volume)Ordered By: David Stallworth on 08-07-2024 Urea nitrogen [Mass/Vol] 18 mg/dL 4-19 [facility] Sodium levelOrdered By: Chase Stallworth on 08-07-2024 Sodium [Moles/Vol] 135 mmol/L 133-145 [facility] Troponin T.cardiac [Mass/vol ume] in Serum or Plasma by High sensitivity methodOrdered By: David Stallworth on 08-07-2024 Troponin T.cardiac High sensitivity method [Mass/Vol] 17 ng/L <22 [facility] Troponin T.cardiac High sensitivity method [Mass/Vol] 8 ng/L <22 [facility] Troponin T.cardiac High sensitivity method [Mass/Vol] 9 ng/L <22 [facility] White blood cell (WBC) count Ordered By: David Stallworth on 08-07-2024 WBC (Bld) [#/Vol] 11.8 10*3/uL High 4.4-11.0 [facility] 12 Lead EKG performed by [facility] on 07-19-2024 12 Lead EKG performed by [address] [address] 12 Lead EKG performed by [facility] 07/19/24 0706 MR#: [id number] Acct: [id number] Name: RICHI HU Rep #: [id number] : 1955 68 From: Taylor Patel KEY WORKER KEY WORKER-C Attending Dr: Taylor Patel, KEY WORKER-C Status: DEP A MB Ordering Dr: Taylor Patel KEY WORKER KEY WORKER-C Date: 07/19/24 [place] [facility] [place]: M C Admitted: [facility]/12 Lead EKG performed by [facility] ECG Report Interpretation A trial flutter-fibrillation -Poor R-wave progression -may be secondary to pulmonary disease consider old anterior infarct. - Nonspecific T-abnormality. Low voltage with rightward P-axis and rotation -possible pulmonary disease. ABNORMAL Electronically signed on 07/20/2024 at 09:41 by Terell Shore Software Version [id number] 07/20/24 0942 Date Taylor GARCIA CC: Dr. Omid Colindres MD Date Dictated: 07/19/24705 Date Transcribed: 07/19/24705 Granulating Blender: GLYNN Signed Normal [facility] Cardiology Visit Reporton Cardiology Visit Report [facility] 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 [facility] [id number] 04-17-20[facility] Comment on above: Order Comment: [id number] 3URIN TOX Result Comment: TEST RESULTS LIMITS Tramadol, Urine Tramadol Positive Abaqvd=732 Tramadol Conf, MS, UR 205 ng/mL Krdjnj=619 Tramadol detected; this finding can be consistent with use of medications that include Ultram, Topalgic, Tradol, Zydol, or generic formulations. Drugs listed are accounts receivable representative of common sources of the compound detected and are not intended to include all possible sources. Please Note: Drug test results should be interpreted in the context of clinical information. Patient metabolic variables, specific drug chemistry, and specimen characteristics can affect test outcome. Technical consultation is available if a test result is inconsistent with an expected outcome. Email: [email or web address] TESTING PERFORMED AT [facility]. ORIGINAL REPORT ON FILE IN LAB CONTAINS ADDITIONAL TEST SITE INFORMATION. Performed By: #### L 500.2500, L100.0100 #### [facility] [address] [place], [place], [id number] [facility]. Normal [facility] Comment on above: Order Comment: [id number] 8TRAMIADOL Result Comment: [id number] 63 6+OXYCODONE-BUND (ng/mL) DRUG RESULT SCREEN CUTOFF ____ Amphetamines,Urine Negative ng/mL 1000 Amphetamine test includes Amphetamine and Methamphetamine. Barbiturates Negative ng/mL 200 Benzodiazepines Negative ng/mL 200 Cannabinoid Negative ng/mL 20 Cocaine (Metab) Negative ng/mL 300 Opiates Negative ng/mL 300 Opiates test includes Codeine, Morphine, Hydromorphone, Hydrocodone. Oxycodone/Oxymorphone,Urine Negative ng/mL 300 Test includes Oxycodone and Oxymorphone. TESTING PERFORMED AT [facility]. ORIGINAL REPORT ON FILE IN LAB CONTAINS ADDITIONAL TEST SITE INFORMATION. Performed By: #### L 500.2499 #### [facility] [address] [place], [place], [address] No Panel InformationOrdered By: Demetria Varela on 04-12-2024 Urine Drug Screen Comment [facility] Comment on above: CONFIRMATORY TESTING FOR ALL [...] Opiates Ql (U) Negative < 300 ng/mL [facility] Urine Drug Screen (VISTA)on 04-12-2024 VISTA UDS PH 7 Normal [facility] Comment on above: Order Comment: MED T OX Performed By: #### L 500.2500, L100.0100 #### [facility] [address] [place], [place], [address] Urine amphetamine measuremen tOrdered By: Demetria Varela on 04-12-2024 Amphetamines Ql (U) Negative <1000 ng/mL [facility] Urine benzodiazepine levelOr dered By: Demetria Varela on 04-12-2024 Benzodiazepines Ql (U) Negative < 200 ng/mL [facility] Urine cocaine levelOrdered B y: Demetria Varela on 04-12-2024 Cocaine Ql (U) Negative < 300 ng/mL [facility] Urine tfoqi-2-scdjdazcvrmdbc abinol (THC) measurementOrdered By: Demetria Varela on 04-12-2024 Cannabinoids Screen Ql (U) Negative < 50 ng/mL [facility] Urine phencyclidine (PCP) de tectionOrdered By: Demetria Varela on 04-12-2024 Phencyclidine Ql (U) Negative < 25 ng/mL [facility] 12 Lead EKG performed by [facility] on 02-22-2024 12 Lead EKG performed by [facility] [address] [place] [address] 12 Lead EKG performed by [facility] 02/22/24905 MR#: [id number] Acct: [id number] Name: RICHI HU Rep #: [id number] : 1955 68 From: Susie May Attending Dr: DIMPLE Arndt Status: DEP [facility] Ordering Dr: Susie Neely Date: 01/31 05/23 [place] [facility] Sex: M C Admitted: [facility]/12 Lead EKG performed by [facility] ECG Report Interpretation S inus Rhythm -Poor R-wave progression -may be secondary to pulmonary disease consider old anterior infarct. - Nonspecific T-abnormality. Low voltage with rightward P-axis and rotation -possible pulmonary disease. ABNORMAL Electronically signed on 02/25/2024 at 09:47 by Terell Shorewood Software Version 8610 02/25/2451 Date Susie MUSA CC: Dr. Tiarra Bravo MD Date Dictated: 02/22/24905 Date Transcribed: 02/22/24905 Granulating Blender: LIBERTAD Signed Normal [facility] Procedure Reporton 4 Procedure Report [facility] Medical Records Department [address] [place] [address] Procedure Report 02/15/24 1132 MR#: [id number] Acct: [id number] Name: RICHI HU Rep #: [id number] : 1955 68 From: Bob Gibson DO PCP: Dr. Tiarra Bravo MD Status:[facility] Location: [facility] Procedures Pulmonary Pulmonary Procedures /Diagnostic Testin Con Sedation Non-invasive Procedural Procedure Information Description of procedure: CONSCIOUS SEDATION REPORT DATE OF SERVICE: February 15, 2024 BRIEF HISTORY OF PRESENT ILLNESS: The patient is a 68-year-old male who presented to [facility] to undergo an elective outpatient cardioversion due [...] MD; Dr. Bob Gibson DO Signed Normal [facility] Procedure Report [facility] Medical Records Department [address] [place] [address] Procedure Report 02/15/24 1121 MR#: [id number] Acct: [id number] Name: RICHI HU Rep #: [id number] : 1955 68 From: Terell Shore MD PCP: Dr. Tiarra Bravo MD Status:[facility] Location: [facility] Problems Associated Problem List Diagnoses [...] prompt reversal to sinus rhythm. Procedure findings: Faith of sinus rhythm Complications Complications: No 02/15/24 1122 Cosigner Signature (if applicable): CC: Dr. Tiarra Bravo MD; Dr. Terell Shore MD Signed Normal [facility] Basic Metabolic Profile (BMP )on 02-08-2024 BUN/CRE 15.3 RATIO Normal 10-20 [facility] Comment on above: Performed By: #### L 500.2500 #### [facility] [address] [address] CA,Total 8.9 mg/dL Normal 8.5-10.1 [facility] Comment on above: Performed By: #### L 500.2500 #### [facility] [address] [address] Chloride [Moles/Vol] 107 mmol/L Normal 98-107 [facility] Comment on above: Performed By: #### L 500.2500 #### [facility] [address] [address] CO2 [Moles/Vol] 25.0 mmol/L Normal 21.0-32.0 [facility] Comment on above: Performed By: #### L 500.2500 #### [facility] [address] [address] Creatinine [Mass/Vol] 0.78 mg/dL Normal 0.70-1.30 [facility] Comment on above: Result Comment: The validity of the calculated GFR GFRAA in patients over 70 years has not been determined. Clinical correlation is essential. Performed By: #### L 500.2500 #### [facility] [address] [place], [address] EST GFR - AA 127 mL/min Normal >60 [facility] Comment on above: Result Comment: Afri can Bermudian GFR Calc Performed By: #### L 500.2500 #### [facility] [address] [place], [address] GAP 6 Normal 5-15 [facility] Comment on above: Performed By: #### L 500.2500 #### [facility] [address] [place], [address] GFR/1.73 sq M.predicted among non-blacks MDRD (S/P/Bld) [Vol rate/Area] 105 mL/min/{1.73_m2} Normal >60 [facility] Comment on above: Result Comment: Non- GFR Calc Performed By: #### L 500.2500 #### [facility] [address] [place], [address] Glucose [Mass/Vol] 91 mg/dL Normal 74-106 [facility] Comment on above: Performed By: #### L 500.2500 #### [facility] [address] [place], [address] Potassium [Moles/Vol] 3.9 mmol/L Normal 3.5-5.1 [facility] Comment on above: Performed By: #### L 500.2500 #### [facility] [address] [place], [address] Sodium [Moles/Vol] 138 mmol/L Normal 136-145 [facility] Comment on above: Performed By: #### L 500.2500 #### [facility] [address] [place], [address] Urea nitrogen [Mass/Vol] 12 mg/dL Normal 7-18 [facility] Comment on above: Performed By: #### L 500.2500 #### [facility] [address] [place], [address] 12 Lead EKG performed by [facility] on 01-25-2024 12 Lead EKG performed by [facility] [address] [place] [address] 12 Lead EKG performed by [facility] 01/25/24 1000 MR#: [id number] Acct: [id number] Name: RICHI HU Rep #: [id number] : 1955 68 From: Susie May Attending Dr: DIMPLE Arndt Status: DEP AMB Ordering Dr: Susie Neely Date: 01/01 07/23 Location: [facility] Sex: M C Admitted: B[facility]/12 Lead EKG performed by [facility] ECG Report Interpretation A trial fibrillation -irregular conduction -Poor R-wave progression -may be secondary to pulmonary disease consider old anterior infarct. -Nonspecific ST depression + Diffuse nonspecific T-abnormality -Nondiagnostic. Low voltage -possible pulmonary disease. ABNORMAL Electronically signed on 02/05/2024 at 16:32 by Terell Shore [employer] Version [id number] 02/05/24 1638 Date Susie MUSA CC: Dr. Tiarra Bravo MD Date Dictated: 01/25/24 1000 Date Transcribed: 01/25/24 1000 Granulating Blender: LIBERTAD Signed Normal [facility] Cardiology Visit Reporton Cardiology Visit Report [facility] 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 So (more content not included)... Normal [facility] Lumbar Spine 2 or 3 Viewson 12-31-2023 Lumbar Spine [address] [facility] Services [address] [place] [address] Lumbar Spine 2 or 3 Views MR#: [id number] Acct: [id number] Name: RICHI HU Rep #: [id number] : 1955 M 68 From: Marocs Busby MD PCP: Dr. Tiarra Bravo MD Status: REG CLI Study: Lumbar Spine 2 or 3 Views Date of Exam: Exam# [id number] Ordering Dr: Demetria Varela MD [id number] STUDY: X-RAY - LUMBAR SPINE REASON FOR [...] Tiarra Bravo MD; Dr. Demetria Varela MD Granulating Blender: Signed Normal [facility] Basic Metabolic Profile (BMP )on 12-14-2023 BUN/CRE 14.7 RATIO Normal 12-19 [facility] Comment on above: Order Comment: Order Date: 12/14/23Order Info: 06-1 - BMPOrder Info: [id number] - LIPIDOrder Info: [id number] - TSH Performed By: #### L 500.2500 #### [facility] [address] [place], [address] CA,Total 9.5 mg/dL Normal 8.5-10.1 [facility] Comment on above: Order Comment: Order Date: 12/14/23Order Info: 666- - BMPOrder Info: [id number] - LIPIDOrder Info: [id number] - TSH Performed By: #### L 500.2500 #### [facility] [address] [place], [address] Chloride [Moles/Vol] 103 mmol/L Normal 98-107 [facility] Comment on above: Order Comment: Order Date: 12/14/23Order Info: 666-1 - BMPOrder Info: [id number] - LIPIDOrder Info: [id number] - TSH Performed By: #### L 500.2500 #### [facility] [address] [place], [address] CO2 [Moles/Vol] 29.0 mmol/L Normal 21.0-32.0 [facility] Comment on above: Order Comment: Order Date: 12/14/23Order Info: [id number] - BMPOrder Info: [id number] - LIPIDOrder Info: 3 - TSH Performed By: #### L 500.2500 #### [facility] [address] [place], [address] Creatinine [Mass/Vol] 0.88 mg/dL Normal 0.70-1.30 [facility] Comment on above: Order Comment: Order Date: 12/14/23Order Info: 666- - BMPOrder Info: [id number] - LIPIDOrder Info: 3 - TSH Result Comment: The validity of the calculated GFR GFRAA in patients over 70 years has not been determined. Clinical correlation is essential. Performed By: #### L 500.2500 #### [facility] [address] [place], [address] EST GFR - AA 111 mL/min Normal >60 [facility] Comment on above: Order Comment: Order Date: 12/14/23Order Info: 666-03 - BMPOrder Info: [id number] - LIPIDOrder Info: [id number] - TSH Result Comment: Afri can [place]erm[place] GFR Calc Performed By: #### L 500.2500 #### [facility] [address] [place], [address] GAP 6 Normal 5-15 [facility] Comment on above: Order Comment: Order Date: 12/14/23Order Info: 666-03 - BMPOrder Info: - LIPIDOrder Info: [id number] - TSH Performed By: #### L 500.2500 #### [facility] [address] [place], [address] GFR/1.73 sq M.predicted among non-blacks MDRD (S/P/Bld) [Vol rate/Area] 92 mL/min/{1.73_m2} Normal >60 [facility] Comment on above: Order Comment: Order Date: 12/14/23Order Info: 666- - BMPOrder Info: [id number] - LIPIDOrder Info: 3 - TSH Result Comment: Non- GFR Calc Performed By: #### L 500.2500 #### [facility] [address] [place], [address] Glucose [Mass/Vol] 86 mg/dL Normal 74-106 [facility] Comment on above: Order Comment: Order Date: 12/14/23Order Info: 666-03 - BMPOrder Info: [id number] - LIPIDOrder Info: [id number] - TSH Performed By: #### L 500.2500 #### [facility] [address] [place], [address] Potassium [Moles/Vol] 4.3 mmol/L Normal 3.5-5.1 [facility] Comment on above: Order Comment: Order Date: 12/14/23Order Info: 666-03 - BMPOrder Info: [id number] - LIPIDOrder Info: 6-3 - TSH Performed By: #### L 500.2500 #### [facility] [address] [place] [address] [place], [address] Sodium [Moles/Vol] 138 mmol/L Normal 136-145 [facility] Comment on above: Order Comment: Order Date: 12/14/23Order Info: 666-03 - BMPOrder Info: [id number] - LIPIDOrder Info: 6-3 - TSH Performed By: #### L 500.2500 #### [facility] [address] [address] [place], [address] Urea nitrogen [Mass/Vol] 13 mg/dL Normal 7-18 [facility] Comment on above: Order Comment: Order Date: 12/14/23Order Info: 666-03 - BMPOrder Info: [id number] - LIPIDOrder Info: [id number] - TSH Performed By: #### L 500.2500 #### [facility] [address] [place], [address] Hemoglobin A1con 12-14-2023 HbA1c (Bld) [Mass fraction] 5.8 % High 3.8-5.6 [facility] Comment on above: Order Comment: Order Date: 12/14/23Order Info: [id number] - A1C Result Comment: Norm al < 5.7 % Prediabetic 5.7 - 6.4 % Diabetic >or= 6.5 % Please note range changes. Performed By: #### L 500.2500 #### [facility] [address] [place], [address] Lipid Profileon 12-14-2023 Cholesterol [Mass/Vol] 134 mg/dL Normal 200 [facility] Comment on above: Order Comment: Order Date: 12/14/23Order Info: 666-1 - BMPOrder Info: [id number] - LIPIDOrder Info: [id number] - TSH Result Comment: <200 mg/dL Desirable 200-240 mg/dL Borderline >240 mg/dL High Risk Performed By: #### L 500.2500 #### [facility] [address] [place], [address] Cholesterol in HDL [Mass/Vol] 33 mg/dL Low [facility] Comment on above: Order Comment: Order Date: 12/14/23Order Info: 666- - BMPOrder Info: [id number] - LIPIDOrder Info: [id number] - TSH Result Comment: The drugs N-Acetylcysteine and Metamizole may falsely depress this assay. Reference Range HDL <40 mg/dL Low HDL Cholesterol HDL >or= 60 mg/dL High HDL Cholesterol Performed By: #### L 500.2500 #### [facility] [address] [place], [address] Cholesterol in LDL [Mass/Vol] 76 mg/dL Normal 0-130 [facility] Comment on above: Order Comment: Order Date: 12/14/23Order Info: 666-1 - BMPOrder Info: [id number] - LIPIDOrder Info: [id number] - TSH Performed By: #### L 500.2500 #### [facility] [address] [place], [address] Cholesterol in VLDL [Mass/Vol] 25 mg/dL Normal 5-40 [facility] Comment on above: Order Comment: Order Date: 12/14/23Order Info: [id number] - BMPOrder Info: [id number] - LIPIDOrder Info: [id number] - TSH Performed By: #### L 500.2500 #### [facility] [address] [place], [address] Triglyceride [Mass/Vol] 123 mg/dL Normal [facility] Comment on above: Order Comment: Order Date: 12/14/23Order Info: 06- - BMPOrder Info: [id number] - LIPIDOrder Info: [id number] - TSH Result Comment: The drugs N-Acetylcysteine and Metamizole may falsely depress this assay. Serum Triglycerides Reference Interval Normal <150 mg/dL Borderline high 150 - 199 mg/dL High 200 - 499 mg/dL Very High > or = 500 mg/dL Performed By: #### L 500.2500 #### [facility] [address] [place], [address] Protein+Creatinine Ratio,Uri neon 12-14-2023 PROT:CRE RATIO 135 mg/g CRE Normal 0-200 [facility] Comment on above: Performed By: #### L 500.2500, L100.0100 #### [facility] [address] [place], [address] Protein (U) [Mass/Vol] 24.8 mg/dL High <11.9 [facility] Comment on above: Performed By: #### L 500.2500, L100.0100 #### [facility] [address] [place], [address] UR CREAT 184.00 mg/dL Normal NO RANGE EST. [facility] Comment on above: Performed By: #### L 500.2500, L100.0100 #### [facility] [address] [place], [address] Thyroid Stim Hormone (TSH)on 12-14-2023 TSH 1.730 uIU/mL Normal 0.358-3.74 0 [facility] Comment on above: Order Comment: Order Date: 12/14/23Order Info: [id number] - BMPOrder Info: [id number] - LIPIDOrder Info: [id number] - TSH Performed By: #### L 500.2500 #### [facility] [address] [place], [address] Laboratory - Drug toxicology Ordered By: Demetria Varela on 04-01-2023 Amphetamines Ql (U) Negative <1000 ng/mL [facility] Benzodiazepines Ql (U) Negative < 200 ng/mL [facility] Cannabinoids Screen Ql (U) Negative < 50 ng/mL [facility] Cocaine Ql (U) Negative < 300 ng/mL [facility] Opiates Ql (U) Negative < 300 ng/mL [facility] No Panel InformationOrdered By: Demetria Varela on 04-01-2023 MDMA (Ecstasy) Screen Negative < 500 ng/mL [facility] Urine Barbiturates Screen Negative < 200 ng/mL [facility] Urine Drug Screen Comment [facility] Comment on above: CONFIRMATORY TESTING FOR ALL [...] Urine Methadone Screen Negative < 300 ng/mL [facility] Urine phencyclidine (PCP) de tectionOrdered By: Demetria Varela on 04-01-2023 Phencyclidine Ql (U) Negative < 25 ng/mL [facility] Basophil percentageOrdered B y: Tiarra Bravo on 02-13-2023 Chloride [Moles/Vol] 102 mmol/L 98-107 [facility] Cholesterol [Mass/Vol] 144 mg/dL <200 [facility] Comment on above: <200 mg/dL Desirable 200-240 mg/dL Borderline >240 mg/dL High Risk Glucose [Mass/Vol] 109 mg/dL 74-106 [facility] Comment on above: Fasting Glucose resu lt from 100 to 125 mg/dL suggests IMPAIRED HOMEOSTASIS per A.D.A. criteria. Potassium [Moles/Vol] 3.8 mmol/L 3.5-5.1 [facility] Sodium [Moles/Vol] 137 mmol/L 136-145 [facility] Triglyceride [Mass/Vol] 122 mg/dL <199 [facility] Comment on above: The drugs N-Acetylcy steine and Metamizole may falsely depress this assay.Serum Triglycerides Reference Interval Normal <150 mg/dL Borderline high 150 - 199 mg/dL High 200 - 499 mg/dL Very High > or = 500 mg/dL Laboratory - Chemistry and C hemistry - challengeOrdered By: Tiarra Bravo on 02-13-2023 CO2 [Moles/Vol] 32.0 mmol/L 21.0-32.0 [facility] Urea nitrogen/Creatinine [Mass ratio] 18.1 mg/mg 10-20 [facility] No Panel InformationOrdered By: Tiarra Bravo on 02-13-2023 Estimated GFR (MDRD) Amer 120 mL/min >60 [facility] Comment on above: GFR Calc Estimated GFR (MDRD) Non-Af Amer 99 mL/min >60 [facility] Comment on above: Non- GFR Calc Prostate Specific Antigen Screen 0.61 ng/mL 0.00-4.00 [facility] Comment on above: This test was perfor med using the TPSA assay method for the[facility] chemistry system. Values obtained with differentassay methods cannot be used interchangably.When changing PSA assays in the course of monitoring apatient, additional sequential testing should be carriedout to confirm baseline values. Serum or plasma calcium emre urement (mass/volume)Ordered By: Tiarra Bravo on 02-13-2023 Calcium [Mass/Vol] 9.1 mg/dL 8.5-10.1 [facility] Serum or plasma cholesterol in HDL measurement (mass/volume)Ordered By: Tiarra Bravo on 02-13-2023 Cholesterol in HDL [Mass/Vol] 35 mg/dL >40 [facility] Comment on above: The drugs N-Acetylcy steine and Metamizole may falsely depress this assay. Reference Range HDL <40 mg/dL Low HDL Cholesterol HDL >or= 60 mg/dL High HDL Cholesterol Serum or plasma cholesterol in VLDL measurement (mass/volume)Ordered By: Tiarra Bravo on 02-13-2023 Cholesterol in VLDL [Mass/Vol] 24 mg/dL 5-40 [facility] Serum or plasma creatinine m easurement (mass/volume)Ordered By: Tiarra Bravo on 02-13-2023 Creatinine [Mass/Vol] 0.83 mg/dL 0.70-1.30 [facility] Comment on above: The validity of the calculated GFR & GFRAA in patients over 70 years has not been determined. Clinical correlation is essential. Serum or plasma low density lipoprotein (LDL) cholesterol measurement (mass/volume)Ordered By: Tiarra Bravo on 02-13-2023 Cholesterol in LDL [Mass/Vol] 85 mg/dL 0-130 [facility] Serum or plasma urea nitroge n measurement (mass/volume)Ordered By: Tiarra Bravo on 02-13-2023 Urea nitrogen [Mass/Vol] 15 mg/dL 7-18 [facility] Thin prep Papanicolaou smear with manual screeningOrdered By: Tiarra Bravo on 02-13-2023 Thin prep Papanicolaou smear with manual screening 3 5-15 [facility] Absolute lymphocyte countOrd ered By: Susie Neely on 01-06-2023 Lymphocytes Auto (Unsp spec) [#/Vol] 2.60 10*3/uL 0.83-4.51 [facility] Basophil percentageOrdered B y: Susie Neely on 01-06-2023 Basophils/100 WBC (Bld) 0.8 % 0-1 [facility] Chloride [Moles/Vol] 103 mmol/L 98-107 [facility] Eosinophils/100 WBC (Bld) 3.4 % 0-5 [facility] Glucose [Mass/Vol] 97 mg/dL 74-106 [facility] Neutrophils (Bld) [#/Vol] 5.1 10*3/uL 2.0-7.7 [facility] Neutrophils/100 WBC (Bld) 57.3 % 47-70 [facility] Potassium [Moles/Vol] 3.9 mmol/L 3.5-5.1 [facility] Sodium [Moles/Vol] 137 mmol/L 136-145 [facility] WBC (Bld) [#/Vol] 8.9 10*3/uL 4.4-11.0 [facility] Blood erythrocytes count (nu mber/volume)Ordered By: Susie Neely on 01-06-2023 RBC (Bld) [#/Vol] 4.91 10*6/uL 4.6-6.2 [facility] Blood hemoglobin measurement (mass/volume)Ordered By: Susie Neely on 01-06-2023 Hemoglobin (Bld) [Mass/Vol] 15.2 g/dL 13.0-16.5 [facility] Blood lymphocytes/100 leukoc ytesOrdered By: Susie Neely on 01-06-2023 Lymphocytes/100 WBC (Bld) 29.1 % 19-41 [facility] Blood monocytes/100 leukocyt esOrdered By: Susie Neely on 01-06-2023 Monocytes/100 WBC (Bld) 9.0 % 0-10 [facility] Blood platelet mean volumeOr dered By: Susie Neely on 01-06-2023 Platelet mean volume (Bld) [Entitic vol] 9.6 fL 6.2-12.0 [facility] Determination of erythrocyte mean corpuscular volume (MCV)Ordered By: Susie Neely on 01-06-2023 MCV (RBC) [Entitic vol] 93.3 fL 80-94 [facility] Hematocrit Auto (Bld) [Volum e fraction]Ordered By: Susie Neely on 01-06-2023 Hematocrit (Bld) [Volume fraction] 45.8 % 40-54 [facility] Laboratory - Chemistry and C hemistry - challengeOrdered By: Susie Neely on 01-06-2023 CO2 [Moles/Vol] 31.0 mmol/L 21.0-32.0 [facility] Magnesium [Mass/Vol] 2.2 mg/dL 1.6-2.6 [facility] Natriuretic peptide B (Bld) [Mass/Vol] 104.6 pg/mL 0-100 [facility] Urea nitrogen/Creatinine [Mass ratio] 17.1 mg/mg 10-20 [facility] Laboratory - Hematology and Cell countsOrdered By: Susie Neely on 01-06-2023 Erythrocyte distribution width (RBC) [Entitic vol] 45.5 fL 35.1-43.9 [facility] Erythrocyte distribution width (RBC) [Ratio] 13.3 % 11.6-14.6 [facility] Immature granulocytes/100 WBC (Bld) 0.400 % 0.0-0.9 [facility] Comment on above: IG% - Immature Granu locytes (promyelocytes, myelocytes and metamyelocytes) > 1% indicates that a LEFT SHIFT is Present. MCH (RBC) [Entitic mass] 31.0 pg 27.0-32.0 [facility] Nucleated RBC/100 WBC (Bld) [Ratio] 0 % 0-5 [facility] MCHC Auto (RBC) [Mass/Vol]Or dered By: Susie Neely on 01-06-2023 MCHC (RBC) [Mass/Vol] 33.2 g/dL 32-36 [facility] No Panel InformationOrdered By: Susie Neely on 01-06-2023 Estimated GFR (MDRD) Amer 112 mL/min >60 [facility] Comment on above: GFR Calc Estimated GFR (MDRD) Non-Af Amer 93 mL/min >60 [facility] Comment on above: Non- GFR Calc Thyroid Stimulating Hormone (TSH) 2.20 uIU/mL 0.358-3.74 [facility] Platelets bldOrdered By: Porter Neely on 01-06-2023 Platelets (Bld) [#/Vol] 211 10*3/uL 150-450 [facility] Serum or plasma calcium emre urement (mass/volume)Ordered By: Susie Neely on 01-06-2023 Calcium [Mass/Vol] 9.1 mg/dL 8.5-10.1 [facility] Serum or plasma creatinine m easurement (mass/volume)Ordered By: Susie Neely on 01-06-2023 Creatinine [Mass/Vol] 0.88 mg/dL 0.70-1.30 [facility] Comment on above: The validity of the calculated GFR & GFRAA in patients over 70 years has not been determined. Clinical correlation is essential. Serum or plasma urea nitroge n measurement (mass/volume)Ordered By: Susie Neely on 01-06-2023 Urea nitrogen [Mass/Vol] 15 mg/dL 7-18 [facility] Thin prep Papanicolaou smear with manual screeningOrdered By: Susie Neely on 01-06-2023 Thin prep Papanicolaou smear with manual screening 3 5-15 [facility] Basophil percentageOrdered B y: Tiarra Bravo on 12-08-2022 Chloride [Moles/Vol] 105 mmol/L 98-107 [facility] Glucose [Mass/Vol] 100 mg/dL 74-106 [facility] Comment on above: Fasting Glucose resu lt from 100 to 125 mg/dL suggests IMPAIRED HOMEOSTASIS per A.D.A. criteria. Potassium [Moles/Vol] 3.7 mmol/L 3.5-5.1 [facility] Sodium [Moles/Vol] 138 mmol/L 136-145 [facility] Laboratory - Chemistry and C hemistry - challengeOrdered By: Tiarra Bravo on 12-08-2022 CO2 [Moles/Vol] 26.0 mmol/L 21.0-32.0 [facility] Urea nitrogen/Creatinine [Mass ratio] 16.8 mg/mg 10-20 [facility] No Panel InformationOrdered By: Tiarra Bravo on 12-08-2022 Estimated GFR (MDRD) Amer 119 mL/min >60 [facility] Comment on above: GFR Calc Estimated GFR (MDRD) Non-Af Amer 98 mL/min >60 [facility] Comment on above: Non- GFR Calc Urine Microalbumin/Creatinin e Ratio 12.6 mg/g CRE <30 [facility] Serum or plasma calcium emre urement (mass/volume)Ordered By: Tiarra Bravo on 12-08-2022 Calcium [Mass/Vol] 8.9 mg/dL 8.5-10.1 [facility] Serum or plasma creatinine m easurement (mass/volume)Ordered By: Tiarra Bravo on 12-08-2022 Creatinine [Mass/Vol] 0.83 mg/dL 0.70-1.30 [facility] Comment on above: The validity of the calculated GFR & GFRAA in patients over 70 years has not been determined. Clinical correlation is essential. Serum or plasma urea nitroge n measurement (mass/volume)Ordered By: Tiarra Bravo on 12-08-2022 Urea nitrogen [Mass/Vol] 14 mg/dL 7-18 [facility] Thin prep Papanicolaou smear with manual screeningOrdered By: Tiarra Bravo on 12-08-2022 Thin prep Papanicolaou smear with manual screening 7 5-15 [facility] Thin prep Papanicolaou smear with manual screening 16.0 mg/L NO RANGE EST. [facility] Urine creatinine measurement (mass/volume)Ordered By: Tiarra Bravo on 12-08-2022 Creatinine (U) [Mass/Vol] 127.00 mg/dL NO RANGE EST. [facility] Laboratory - Drug toxicology Ordered By: Dr. Varela on 06-19-2022 Amphetamines Ql (U) Negative <1000 ng/mL [facility] Benzodiazepines Ql (U) Negative < 200 ng/mL [facility] Cannabinoids Screen Ql (U) Negative < 50 ng/mL [facility] Cocaine Ql (U) Negative < 300 ng/mL [facility] Opiates Ql (U) Negative < 300 ng/mL [facility] No Panel InformationOrdered By: Dr. Varela on 06-19-2022 MDMA (Ecstasy) Screen Negative < 500 ng/mL [facility] Urine Barbiturates Screen Negative < 200 ng/mL [facility] Urine Drug Screen Comment [facility] Comment on above: CONFIRMATORY TESTING FOR ALL [...] Urine Methadone Screen Negative < 300 ng/mL [facility] Urine phencyclidine (PCP) de tectionOrdered By: Dr. Varela on 06-19-2022 Phencyclidine Ql (U) Negative < 25 ng/mL [facility] ERCPon 04-02-2022 ERCP PATIENTNAME Patient Name: Richi Hu EXAMDATE Procedure Date: 04/02/2022 10:33 AM PATIENTID PATIENTACCOUNTNUM PATIENTDOB Date of : 1955 ADMITTYPE Admit Type: Outpatient PATIENTROOM Site: [facility] 1 ETHNICITY Ethnicity: Not or RACE Race: White PROVDR Attending MD: Argelia Abad MD, [id number] ENDOPROCEDURENAME Procedure: ERCP INDICATION Indications: Common bile duct stone(s), Follow-up of ascending cholangitis, Stent removal, Prior bile duct stent placement, Prior Endoscopic Retrograde Cholangiopancreatography, S/p cholecytectomy PTPROFILE Patient Profile: This is a 66 year old male. Refer to note in patient chart for documentation of history and physical. PRIMARYPROVIDER Providers: Argelia Abad MD (Doctor), Sena Harrison RN (Nurse), Nuria Calderon, Braille Operator EDREFPROVIDER Referring: Argelia Abad MD CURRENT_MEDS [...] A biliary stent was visible on the end finder forming department film. A standard esophagogastroduodenoscopy scope was used [...] results. CPT_CODES Procedure Code(s): --- Professional --- 98960, Esophagogastroduodenoscopy, flexible, transoral; with removal of foreign body(s) 91843, Esophagogastroduodenoscopy, flexible, transoral; with biopsy, single or multiple ICD_CODES Diagnosis Code(s): --- Professional --- Z98.890, Other specified postprocedural states K83.09, Other cholangitis Z46.59, Encounter for fitting and adjustment of other gastrointestinal appliance and device Z96.89, Presence of other specified functional implants K80.30, Calculus of bile duct with cholangitis, unspecified, without obstruction K31.89, Other diseases of stomach and duodenum CODINGSTMT CPT copyright 2020 [employer]. All rights reserved. The codes documented in this report are preliminary and upon septic tank servicer rev (more content not included)... Normal [facility] No Panel Informationon 04-02 [facility] Work Phone: [email or web address]} [facility]astroenter o[facility]y-[facility] Work Phone: [facility] Work Phone: Order Reconciliationon 04-02 Order Reconciliation [...] 1 cap(s) orally once a day Normal [facility] Radiologyon 04-02-2022 Fluoroscopy duration Please click on the link to view the study images Normal -[facility] Work Phone: [facility] Surgical Pathology Depar tmenton 04-02-2022 [facility] Surgical Pathology Department Name RICHI HU Pathologist: KAVYA CLEMENTE Date of Procedure: 04/02/2022 Date Received: 04/02/2022 Date Reported 04/07/2022 Submitting Physician: ARGELIA ABAD MD Location: [facility] Other External # FINAL DIAGNOSIS A. ANTHONY AMPULLA BIOPSY: -- DUODENAL MUCOSA WITH MILD FOCAL SUPERFICIAL ACUTE INFLAMMATION. -- NO MALIGNANCY OR DYSPLASIA IDENTIFIED. Electronically Signed Out By KAVYA CLEMENTE/LUCIANO By the signature on this report, the individual or group listed as making the Final Interpretation/Diagnosis certifies that they have reviewed this case. Diagnostic interpretation performed at [facility] [address] [place] [address] Clinical History: CBD stent removal, history of CBD stones Specimens Submitted As: A: ANTHONY AMPULLA BIOPSY Gross Description: Received in formalin, labeled with the patient's name and hospital number and A. Ampulla BX, is a fragment of ortega, soft tissue measuring 0.3 x 0.2 x 0.2 cm. The specimen is submitted in toto in one cassette. SBS sbs/04/03/2022 [facility] Department of Pathology [id number] [place] [address] Normal [facility] Comment on above: Performed By: #### U [facility] #### [facility] Surgical Pathology Department [address] [place] [address] No Panel Informationon 02-10 Prostate Specific Antigen Screen 0.75 ng/mL 0.00-4.00 [facility] Work Phone: Comment on above: This test was perfor med using the TPSA assay method for theCollabspot chemistry system. Values obtained with differentassay methods cannot be used interchangably.When changing PSA assays in the course of monitoring apatient, additional sequential testing should be carriedout to confirm baseline values. CBCon 01-03-2022 Erythrocyte distribution width (RBC) [Ratio] 14.4 % Normal 11.5 - 14.5 [facility] Comment on above: Performed By: #### M G #### [address] [place] [address] Hematocrit (Bld) [Volume fraction] 38.9 % Low 41.0 - 52.0 [facility] Comment on above: Performed By: #### M G #### [address] [place] [address] Hemoglobin (Bld) [Mass/Vol] 12.7 g/dL Low 13.5 - 17.5 [facility] Comment on above: Performed By: #### M G #### [address] [address] MCHC (RBC) [Mass/Vol] 32.6 g/dL Normal 32.0 - 36.0 [facility] Comment on above: Performed By: #### M G #### [address] [address] MCV (RBC) [Entitic vol] 98 fL Normal 80 - 100 [facility] Comment on above: Performed By: #### M G #### [address] [address] NUCLEATED RBC 0.0 /100 WBC Normal 0.0 - 0.0 [facility] Comment on above: Performed By: #### M G #### [address] [address] Platelets (Bld) [#/Vol] 141 10*3/uL Low 150 - 450 [facility] Comment on above: Performed By: #### M G #### [address] [place] [address] RBC 3.96 x10E12/L Low 4.50 - 5.90 [facility] Comment on above: Performed By: #### M G #### [address] [place] [address] WBC (Bld) [#/Vol] 8.3 10*3/uL Normal 4.4 - 11.3 [facility] Comment on above: Performed By: #### M G #### [address] [address] COMPREHENSIVE PANELon 2021 Albumin [Mass/Vol] 2.9 g/dL Low 3.4 - 5.0 [facility] Comment on above: Performed By: #### C MP #### [address] [address] ALP [Catalytic activity/Vol] 106 U/L Normal 33 - 136 [facility] Comment on above: Performed By: #### C MP #### [address] [address] ALT [Catalytic activity/Vol] 80 U/L High 10 - 52 [facility] Comment on above: Result Comment: Sri ents treated with Sulfasalazine may generate falsely decreased results for ALT. Performed By: #### C MP #### [address] [address] Anion gap [Moles/Vol] 11 mmol/L Normal 10 - 20 [facility] Comment on above: Performed By: #### C MP #### [address] [address] AST [Catalytic activity/Vol] 41 U/L High 9 - 39 [facility] Comment on above: Performed By: #### C MP #### [address] [address] Bilirubin [Mass/Vol] 2.1 mg/dL High 0.0 - 1.2 [facility] Comment on above: Performed By: #### C MP #### [address] [address] Calcium [Mass/Vol] 8.0 mg/dL Low 8.6 - 10.3 [facility] Comment on above: Performed By: #### C MP #### [address] [address] Chloride [Moles/Vol] 104 mmol/L Normal 98 - 107 [facility] Comment on above: Performed By: #### C MP #### [address] [address] Creatinine [Mass/Vol] 0.63 mg/dL Normal 0.50 - 1.30 [facility] Comment on above: Performed By: #### C MP #### [address] [address] eGFR MALE >90 Normal >90 [facility] Comment on above: Result Comment: CALC ULATIONS OF ESTIMATED GFR ARE PERFORMED USING THE 2020 CKD-EPI STUDY REFIT EQUATION WITHOUT THE RACE VARIABLE FOR THE IDMS-TRACEABLE CREATININE METHODS. https://jasn.asnjournals.org/content/early//ASN.22067 01393 Performed By: #### C MP #### [address] [address] Glucose [Mass/Vol] 93 mg/dL Normal 74 - 99 [facility] Comment on above: Performed By: #### C MP #### [address] [address] HCO3 (Bld) [Moles/Vol] 25 mmol/L Normal 21 - 32 [facility] Comment on above: Performed By: #### C MP #### [address] [address] Potassium [Moles/Vol] 3.8 mmol/L Normal 3.5 - 5.3 [facility] Comment on above: Performed By: #### C MP #### [address] [address] Protein [Mass/Vol] 5.2 g/dL Low 6.4 - 8.2 [facility] Comment on above: Performed By: #### C MP #### [address] [address] Sodium [Moles/Vol] 136 mmol/L Normal 136 - 145 [facility] Comment on above: Performed By: #### C MP #### [address] [place] [address] Urea nitrogen [Mass/Vol] 15 mg/dL Normal 6 - 23 [facility] Comment on above: Performed By: #### C TUCKER #### [facility] [address] [place] [address] Laboratory - Chemistry and C hemistry - challengeon 01-03-2022 Albumin BCP dye [Mass/Vol] 2.9 g/dL below low threshold 3.4 - 5.0 [facility] [employer] Work Phone: ALP [Catalytic activity/Vol] 106 U/L 33 - 136 [facility] [employer] Work Phone: ALT With P-5'-P [Catalytic activity/Vol] 80 U/L above high threshold 10 - 52 [facility] [employer] Work Phone: Comment on above: Patients treated wit h Sulfasalazine may generate falsely decreased results for ALT. Anion gap [Moles/Vol] 11 mmol/L 10 - 20 [facility] [employer] Work Phone: AST With P-5'-P [Catalytic activity/Vol] 41 U/L above high threshold 9 - 39 [facility] [employer] Work Phone: Bilirubin [Mass/Vol] 2.1 mg/dL above high threshold 0.0 - 1.2 [facility] [employer] Work Phone: Calcium [Mass/Vol] 8.0 mg/dL below low threshold 8.6 - 10.3 [facility] [employer] Work Phone: Chloride [Moles/Vol] 104 mmol/L 98 - 107 -[facility] Gastroenter [facility] [employer] Work Phone: CO2 [Moles/Vol] 25 mmol/L 21 - 32 [facility] [employer] Work Phone: Creatinine [Mass/Vol] 0.63 mg/dL See Below [facility] Gastroenter ology-[facility] Work Phone: Comment on above: Reference Range: 0.5 0 - 1.30 Glucose [Mass/Vol] 93 mg/dL 74 - 99 -[facility] v Gastroenter ology-[facility] [employer] Work Phone: Potassium [Moles/Vol] 3.8 mmol/L 3.5 - 5.3 [facility] Gastroenter ology-[facility] [employer] Work Phone: Protein [Mass/Vol] 5.2 g/dL below low threshold 6.4 - 8.2 [facility] Gastroenter ology-[facility] [employer] Work Phone: Sodium [Moles/Vol] 136 mmol/L 136 - 145 [facility] Gastroenter ogy-[facility] [employer] Work Phone: Urea nitrogen [Mass/Vol] 15 mg/dL 6 - 23 [facility] Gastroenter ology-[facility] [employer] Work Phone: Laboratory - Hematology and Cell countson 01-03-2022 Erythrocyte distribution width (RBC) [Ratio] 14.4 % See Below [facility] Gastroenter ology-[facility] [employer] Work Phone: Comment on above: Reference Range: 11. 5 - 14.5 Hematocrit (Bld) [Volume fraction] 38.9 % below low threshold See Below [facility] Gastroenter ology-[facility] [employer] Work Phone: Comment on above: Reference Range: 41. 0 - 52.0 Hemoglobin (Bld) [Mass/Vol] 12.7 g/dL below low threshold See Below [facility] [employer] Work Phone: Comment on above: Reference Range: 13. 5 - 17.5 MCHC (RBC) [Mass/Vol] 32.6 g/dL See Below [facility] Gastroenter ology-[facility] Work Phone: Comment on above: Reference Range: 32. 0 - 36.0 MCV (RBC) [Entitic vol] 98 fL 80 - 100 -[facility]enter [facility] Work Phone: Platelets (Bld) [#/Vol] 141 10*3/uL below low threshold 150 - 450 -[facility] Work Phone: RBC (Bld) [#/Vol] 3.96 {x10E12/L} below low threshold See Below -[facility] Work Phone: Comment on above: Reference Range: 4.5 0 - 5.90 WBC (Bld) [#/Vol] 8.3 10*3/uL 4.4 - 11.3 -[facility] Work Phone: MAGNESIUMon 01-03-2022 Magnesium [Mass/Vol] 1.80 mg/dL Normal 1.60 - 2.40 [facility] Comment on above: Performed By: #### M G #### [facility] [address] [place] [address] Magnesium, Serumon Magnesium [Mass/Vol] 1.80 mg/dL See Below -[facility] Work Phone: Comment on above: Reference Range: 1.6 0 - 2.40 No Panel Informationon 01-03 >90 >90 -[facility] Work Phone: Comment on above: CALCULATIONS OF SHARON MATED GFR ARE PERFORMED USING THE 2020 CKD-EPI STUDY REFIT EQUATION WITHOUT THE RACE VARIABLE FOR THE IDMS-TRACEABLE CREATININE METHODS.https://jasn.asnjournals.org/content//A SN.0856098244 0.0 {/100_WBC} 0.0 - 0.0 [facility] [employer] Work Phone: Order Reconciliationon 01-03 Order Reconciliation Page 1 Discharge Reconciliation Document Reconciliation Type: Discharge requested on behalf of Geovanna Kahn (Advanced Practice Nurse-Admit) done by Geovanna Kahn ([facility]) Discharge - Reconciliation: 03-Jan-2022 13:19 by: Geovanna Kahn ([facility]) Discharge - Reset to Incomplete: 04-Jan-2022 12:33 by: Geovanna Kahn ([facility]) Discharge - Reconciliation: 04-Jan-2022 12:33 by: Geovanna Kahn ([facility]) Discharge - Reset to Incomplete: 04-Jan-2022 12:39 by: Bebeto Naylor) Discharge - Reconciliation: 04-Jan-2022 12:41 by: Bebeto Naylor) Discharge - Reset to Incomplete: 04-Jan-2022 15:18 by: Bebeto Naylor) Discharge - Reconciliation: 04-Jan-2022 15:19 by: Bebeto Naylor) Discharge - Reset to Incomplete: 04-Jan-2022 19:10 by: Geovanna Kahn ([facility]) Discharge - Reconciliation: 04-Jan-2022 19:10 by: Geovanna Kahn ([facility]) Home Medications EnteredHOME MEDICATIONS AT DISCHARGE [...] continued as lisinopril 20 mg oral tablet Wadsworth 5 mg-325 mg oral tablet 1 tab(s) orally every 6 hours, As Needed 30-Dec-2021 13:21 Wadsworth 5 mg-325 mg oral tablet 1 tab(s) orally every 6 hours, As Needed 04-Jan-2022 12:33 Discontinued; Discontinue from ORM Prescription is created for Wadsworth 5 mg-325 mg oral tablet rivaroxaban 20 [...] be shared with your follow-up providers (doctor, paint brush maker, physical therapist, etc.). Guidelines for a Healthy Lifestyle All Active Home Medications at time of Discharge Reconciliation: 04-Jan-2022 19:10 (more content not included)... Normal [facility] CBCon 01-02-2022 Erythrocyte distribution width (RBC) [Ratio] 14.3 % Normal 11.5 - 14.5 [facility] Comment on above: Performed By: #### C BC ####[facility] [place] [address] Hematocrit (Bld) [Volume fraction] 39.3 % Low 41.0 - 52.0 [facility] Comment on above: Performed By: #### C BC ####[facility] [address] [address] Hemoglobin (Bld) [Mass/Vol] 12.9 g/dL Low 13.5 - 17.5 [facility] Comment on above: Performed By: #### C BC ####[address] [address] MCHC (RBC) [Mass/Vol] 32.8 g/dL Normal 32.0 - 36.0 [facility] Comment on above: Performed By: #### C BC ####[address] [address] MCV (RBC) [Entitic vol] 97 fL Normal 80 - 100 [facility] Comment on above: Performed By: #### C BC ####[address] [address] NUCLEATED RBC 0.0 /100 WBC Normal 0.0 - 0.0 [facility] Comment on above: Performed By: #### C BC ####[address] [address] Platelets (Bld) [#/Vol] 143 10*3/uL Low 150 - 450 [facility] Comment on above: Performed By: #### C BC ####[address] [address] RBC 4.04 x10E12/L Low 4.50 - 5.90 [facility] Comment on above: Performed By: #### C BC ####[address] [address] WBC (Bld) [#/Vol] 10.4 10*3/uL Normal 4.4 - 11.3 [facility] Comment on above: Performed By: #### C BC ####[address] [address] COMPREHENSIVE PANELon 2021 Albumin [Mass/Vol] 3.1 g/dL Low 3.4 - 5.0 [facility] Comment on above: Performed By: #### M G #### [address] [address] ALT [Catalytic activity/Vol] 111 U/L High 10 - 52 [facility] Comment on above: Result Comment: Sri ents treated with Sulfasalazine may generate falsely decreased results for ALT. Performed By: #### M G #### [address] [place] [address] AST [Catalytic activity/Vol] 71 U/L High 9 - 39 [facility] Comment on above: Performed By: #### M G #### [address] [place] [address] eGFR MALE >90 Normal >90 [facility] Comment on above: Result Comment: CALC ULATIONS OF ESTIMATED GFR ARE PERFORMED USING THE 2020 CKD-EPI STUDY REFIT EQUATION WITHOUT THE RACE VARIABLE FOR THE IDMS-TRACEABLE CREATININE METHODS. https://jasn.asnjournals.org/content/early/ASN.69901 16509 Performed By: #### M G #### [address] [place] [address] HCO3 (Bld) [Moles/Vol] 23 mmol/L Normal 21 - 32 [facility] Comment on above: Performed By: #### M G #### [address] [place] [address] ALP [Catalytic activity/Vol] 118 U/L Normal 33 - 136 [facility] [employer] Work Phone: Comment on above: Performed By: #### M G #### [address] [place] [address] Anion gap [Moles/Vol] 13 mmol/L Normal 10 - 20 [facility] Work Phone: Comment on above: Performed By: #### M G #### [address] [place] [address] Bilirubin [Mass/Vol] 2.4 mg/dL High 0.0 - 1.2 [facility] Work Phone: Comment on above: Performed By: #### M G #### [address] [place] [address] Calcium [Mass/Vol] 8.2 mg/dL Low 8.6 - 10.3 [facility] Work Phone: Comment on above: Performed By: #### M G #### [address] [place] [address] Chloride [Moles/Vol] 104 mmol/L Normal 98 - 107 [facility] Work Phone: Comment on above: Performed By: #### M G #### [address] [place] [address] Creatinine [Mass/Vol] 0.63 mg/dL Normal 0.50 - 1.30 [facility] Work Phone: Comment on above: Reference Range: 0.5 0 - 1.30 Performed By: #### M G #### [address] [place] [address] Glucose [Mass/Vol] 160 mg/dL High 74 - 99 [facility] Work Phone: Comment on above: Performed By: #### M G #### [address] [place] [address] Potassium [Moles/Vol] 3.8 mmol/L Normal 3.5 - 5.3 [facility] Work Phone: Comment on above: Performed By: #### M G #### [address] [place] [address] Protein [Mass/Vol] 5.3 g/dL Low 6.4 - 8.2 [facility] Work Phone: Comment on above: Performed By: #### M G #### [address] [place] [address] Sodium [Moles/Vol] 136 mmol/L Normal 136 - 145 [facility] Work Phone: Comment on above: Performed By: #### M G #### [address] [place] [address] Urea nitrogen [Mass/Vol] 15 mg/dL Normal 6 - 23 [facility] Work Phone: Comment on above: Performed By: #### M G #### [address] [place] [address] Daily Progress Note-General Internal Medicineon 01-02-2022 Daily [...] today. Objective Data: Objective Information: T PRBPMAPSpO2 [id number]% Date/Time01/02 8: 8: 8: 8: 8:00 Range(36.2C [...] Cl- BUN / 136 104 15 / ----- Glucose 160 H K+ HCO3- Creat \ [...] CODE STATUS: FULL Electronic Signatures: Geovanna Kahn (FIRE REGULATOR-HEAD HOUSEKEEPER) (Signed 02-Jan-2022 11:56) Authored: Service, Subjective Data, Objective Data, Assessment and Plan, Note Completion Last Updated: 02-Jan-2022 11:56 by Geovanna Kahn (FIRE REGULATOR-HEAD HOUSEKEEPER) Normal [facility] Daily Progress Note-Surgeryo n 01-02-2022 Daily Progress [...] overnight. Objective Data: Objective Information: T PRBPMAPSpO2 [id number]% Date/Time01/02 12:00103/04 12: 12: 12: 12:00 Range(36C - 37.2C [...] erythema, no drainage or induration. Appropriately TTP. KMIBER with SS drainage. Genitourinary: No figueroa catheter Lymphatic: No significant lymphadenopathy Psychological: Appropriate mood and behavior Skin: Warm and dry, no lesions, no rashes Medication: Medications: Continuous Medications ----- 1. Dextrose 5% - NaCL 0.45% with Potassium CL 20 mEq Premix Fluid: 1000 mL IntraVenous Scheduled Medications ----- 1. Enoxaparin SubCutaneous: 60 mg SubCutaneous Every 12 Hours 2. Ertapenem IV Piggy Back: 1 gram(s) IntraVenous Piggyback Every 24 Hours 3. Lisinopril: 20 mg Oral Daily 4. Sotalol: 120 mg Oral 2 Times a Day PRN Medications ----- 1. HYDROmorphone Injectable: 0.2 mg IntraVenous Push [...] Cl- BUN / 136 104 15 / ----- Glucose 160 H K+ HCO3- Creat \ [...] Nausea: antiemetics PRN LFTs trending down Maintain IKMBER for today. Can remove prior to discharge Encourage OOB and IS No antibiotics from surgery standpoint #Atrial fibrillation DVT prophylaxis: lovenox 60mg Sq BID - xarelto on hold Plan of care discussed with Dr. Washington, will defer further orders. Electronic Signatures: Taylor Walton (FIRE REGULATOR-HEAD HOUSEKEEPER) (Signed 02-Jan-2022 13:34) Authored: Service, Subjective Data, Objective Data, Assessment and Plan, Note Completion Last Updated: 02-Jan-2022 13:34 by Taylor Walton (FIRE REGULATOR-HEAD HOUSEKEEPER) Normal [facility] Laboratory - Chemistry and C hemistry - challengeon 01-02-2022 Albumin BCP dye [Mass/Vol] 3.1 g/dL below low threshold 3.4 - 5.0 [facility] [employer] Work Phone: ALT With P-5'-P [Catalytic activity/Vol] 111 U/L above high threshold 10 - 52 [facility] [employer] Work Phone: Comment on above: Patients treated wit h Sulfasalazine may generate falsely decreased results for ALT. AST With P-5'-P [Catalytic activity/Vol] 71 U/L above high threshold 9 - 39 [facility] [employer] Work Phone: CO2 [Moles/Vol] 23 mmol/L 21 - 32 [facility] [employer] Work Phone: Laboratory - Hematology and Cell countson 01-02-2022 Erythrocyte distribution width (RBC) [Ratio] 14.3 % See Below [facility] [employer] Work Phone: Comment on above: Reference Range: 11. 5 - 14.5 Hematocrit (Bld) [Volume fraction] 39.3 % below low threshold See Below [facility] [employer] Work Phone: Comment on above: Reference Range: 41. 0 - 52.0 Hemoglobin (Bld) [Mass/Vol] 12.9 g/dL below low threshold See Below [facility] [employer] Work Phone: Comment on above: Reference Range: 13. 5 - 17.5 MCHC (RBC) [Mass/Vol] 32.8 g/dL See Below [facility] [employer] Work Phone: Comment on above: Reference Range: 32. 0 - 36.0 MCV (RBC) [Entitic vol] 97 fL 80 - 100 -[facility] Work Phone: Platelets (Bld) [#/Vol] 143 10*3/uL below low threshold 150 - 450 [facility] Work Phone: RBC (Bld) [#/Vol] 4.04 {x10E12/L} below low threshold See Below -[facility] Work Phone: Comment on above: Reference Range: 4.5 0 - 5.90 WBC (Bld) [#/Vol] 10.4 10*3/uL 4.4 - 11.3 [facility] Work Phone: Magnesium, Serumon 2 Magnesium [Mass/Vol] 1.80 mg/dL Normal 1.60 - 2.40 [facility] Work Phone: Comment on above: Reference Range: 1.6 0 - 2.40 Performed By: #### M G #### [facility] [address] [place] [address] No Panel Informationon 01-02 >90 >90 [facility] Work Phone: Comment on above: CALCULATIONS OF SHARON MATED GFR ARE PERFORMED USING THE 2020 CKD-EPI STUDY REFIT EQUATION WITHOUT THE RACE VARIABLE FOR THE IDMS-TRACEABLE CREATININE METHODS.https://jasn.asnjournals.org/content///A SN.9246419236 0.0 {/100_WBC} 0.0 - 0.0 [facility] Work Phone: CBCon 01-01-2022 Erythrocyte distribution width (RBC) [Ratio] 14.1 % Normal 11.5 - 14.5 [facility] Comment on above: Performed By: #### C BC #### [address] [address] Hematocrit (Bld) [Volume fraction] 39.6 % Low 41.0 - 52.0 [facility] Comment on above: Performed By: #### C BC #### [address] [address] Hemoglobin (Bld) [Mass/Vol] 13.1 g/dL Low 13.5 - 17.5 [facility] Comment on above: Performed By: #### C BC #### [address] [address] MCHC (RBC) [Mass/Vol] 33.1 g/dL Normal 32.0 - 36.0 [facility] Comment on above: Performed By: #### C BC #### [address] [address] MCV (RBC) [Entitic vol] 95 fL Normal 80 - 100 [facility] Comment on above: Performed By: #### C BC #### [address] [address] NUCLEATED RBC 0.0 /100 WBC Normal 0.0 - 0.0 [facility] Comment on above: Performed By: #### C BC #### [address] [address] Platelets (Bld) [#/Vol] 109 10*3/uL Low 150 - 450 [facility] Comment on above: Performed By: #### C BC #### [address] [address] RBC 4.15 x10E12/L Low 4.50 - 5.90 [facility] Comment on above: Performed By: #### C BC #### [address] [address] WBC (Bld) [#/Vol] 6.3 10*3/uL Normal 4.4 - 11.3 [facility] Comment on above: Performed By: #### C BC #### [facility] [address] [place] [address] COMPREHENSIVE PANELon 2021 Albumin [Mass/Vol] 3.2 g/dL Low 3.4 - 5.0 [facility] Comment on above: Performed By: #### C MP ####[facility] [place] [address] ALP [Catalytic activity/Vol] 136 U/L Normal 33 - 136 [facility] Comment on above: Performed By: #### C MP ####[address] [place] [address] ALT [Catalytic activity/Vol] 137 U/L High 10 - 52 [facility] Comment on above: Result Comment: Sri ents treated with Sulfasalazine may generate falsely decreased results for ALT. Performed By: #### C MP ####[facility] [place] [address] Anion gap [Moles/Vol] 14 mmol/L Normal 10 - 20 [facility] Comment on above: Performed By: #### C MP ####[facility] [place] [address] AST [Catalytic activity/Vol] 102 U/L High 9 - 39 [facility] Comment on above: Performed By: #### C MP ####[address] [place] [address] Bilirubin [Mass/Vol] 3.5 mg/dL High 0.0 - 1.2 [facility] Comment on above: Performed By: #### C MP ####[address] [place] [address] Calcium [Mass/Vol] 8.4 mg/dL Low 8.6 - 10.3 [facility] Comment on above: Performed By: #### C MP ####[place] [id number] [place] [address] Chloride [Moles/Vol] 103 mmol/L Normal 98 - 107 [facility] Comment on above: Performed By: #### C MP ####[address] [place] [address] Creatinine [Mass/Vol] 0.63 mg/dL Normal 0.50 - 1.30 [facility] Comment on above: Performed By: #### C MP ####[address] [address] eGFR MALE >90 Normal >90 [facility] Comment on above: Result Comment: CALC ULATIONS OF ESTIMATED GFR ARE PERFORMED USING THE 2020 CKD-EPI STUDY REFIT EQUATION WITHOUT THE RACE VARIABLE FOR THE IDMS-TRACEABLE CREATININE METHODS. https://jasn.asnjournals.org/content/early/ASN.80127 [address] Performed By: #### C MP ####[address] [address] Glucose [Mass/Vol] 110 mg/dL High 74 - 99 [facility] Comment on above: Performed By: #### C MP ####[address] [address] HCO3 (Bld) [Moles/Vol] 24 mmol/L Normal 21 - 32 [facility] Comment on above: Performed By: #### C MP ####[address] [address] Potassium [Moles/Vol] 3.7 mmol/L Normal 3.5 - 5.3 [facility] Comment on above: Performed By: #### C MP ####[address] [address] Protein [Mass/Vol] 5.5 g/dL Low 6.4 - 8.2 [facility] Comment on above: Performed By: #### C MP ####[address] [address] Sodium [Moles/Vol] 137 mmol/L Normal 136 - 145 [facility] Comment on above: Performed By: #### C MP ####[address] [address] Urea nitrogen [Mass/Vol] 14 mg/dL Normal 6 - 23 [facility] Comment on above: Performed By: #### C MP ####[facility] [place] [address] Daily Progress Note-Gastroen terologyon 01-01-2022 Daily Progress Note-Gastroenterology Service: Gastroenterology Subjective Data: RICHI HU is a 66 year old Male who is Hospital Day # 3. Pt lying in bed in NAD. s/p ERCP with stent placement. Liver enzymes downtrending, bilirubin 7.3 to 3.5 today. Plan for cholecystectomy today. Repeat ERCP in 3 months for stent removal. Objective Data: Objective Information: T PRBPMAPSpO2 [id number]/6693% Date/Time01/01 8: 8: 8: 8: 8:00 Range(35.6C [...] laboratory results: Complete Blood Count Trending View [id number] 08:46:00 31-Dec-2021 06:08:00 White Blood Cell Count6.3 6.0 Nucleated Erythrocyte Count0.0 0.0 Red Blood Cell Count4.15 L 4.06 L HGB13.1 L 13.0 L HCT39.6 L 39.0 L MCV95 96 MCHC33.1 33.3 JMO543 L 138 L RDW-CV14.1 14.3 Comprehensive Metabolic Panel Trending View Mgqhxo71-Rjq-4097 08:46:00 31-Dec-2021 06:08:00 Glucose, Xjyau940 H 112 H NA137 137 K3.7 3.5 CL103 103 Bicarbonate, Serum24 27 Anion Gap, Serum14 11 BUN14 11 CREAT0.63 0.79 GFR Male>90 >90 Calcium, Serum8.4 L 8.3 L ALB3.2 L 3.2 L BGYK290 118 T Pro5.5 L 5.3 L T Bili3.5 H 7.3 H Alanine Aminotransferase, Wsukn233 H 165 H Aspartate Transaminase, Atzcm144 H 170 H Magnesium, Serum Trending View [id number] 08:46:00 31-Dec-2021 06:08:00 Magnesium, Serum1.90 1.80 Urinalysis 30-Dec-2021 17:21:00 ResultValue Color, Urine JAVY Reference Range: STRAW,YELLOW Appearance, Urine CLEAR Specific [place], Urine 1.044 H pH, Urine 5.0 Protein, [...] over the past day. He presented to [facility] and was transferred for further management. Imaging [...] pain- improved- s/p ERCP # nausea-improved # transaminitis/hyperbilirubi nemia- downtrending # cholelithiasis # morbid obesity Plan: - continue supportive care - keep NPO - plan for cholecystectomy today - continue to trend liver enzymes - continue to hold anticoagulation - continue antibiotics per primary team - continue analgesics and antiemetics as needed Plan has been discussed with Dr. Blackwell. GI will sign off. MAGDI Wong Electronic Signatures: Natali Snow (WILLIAM-HEAD HOUSEKEEPER) (Signed 01-Jan-2022 14:55) Authored: (more content not included)... Normal [facility] Daily Progress Note-General Internal Medicineon 01-01-2022 Daily [...] today Objective Data: Objective Information: T PRBPMAPSpO2 [id number]/6693% Date/Time01/01 8: 8: 8: 8: 8:00 Range(35.6C [...] Cl- BUN / 137 103 14 / ----- Glucose 110 H K+ HCO3- Creat \ [...] CODE STATUS: FULL Electronic Signatures: Geovanna Kahn (FIRE REGULATOR-HEAD HOUSEKEEPER) (Signed 01-Jan-2022 17:38) Authored: Service, Subjective Data, Objective Data, Assessment and Plan, Note Completion Last Updated: 01-Jan-2022 17:38 by Geovanna Kahn (FIRE REGULATOR-HEAD HOUSEKEEPER) [facility] Discharge Planning Edhb3yu 1 03-03-2021 Discharge Planning Note2 Discharge Planning: Anticipated Discharge [id number] Discharge Planning 01/01/2022 Richi Hu is a 66 year old male who was admitted to [facility] with abdominal Pain. Chart reviewed, journalists and other writers spoke with patient- introduced self and explained [...] discharge. JOHANNA Roque Assessment: Discharge Planning Assessment [id number] Primary Contact Name and NumberHoma, (1) Lives Withspouse(1) Living Arrangementshouse(1) Stated Reason for Admissiontransferred for stomach pain(1) [place] Resource/Environmental Concernsnone(1) [place] Services Anticipated at [facility](1) Discharge Documentation: Discharge/Transfer Date/[id number]-0666 Discharged Accompanied Byfamily member Transportation Methodprivate car Discharge Modewheelchair Code StatusCode Status order at time of discharge: Full Code Discharge Order Writtenyes [place] DNR Form Sent with Patient and/or Familyn/a Final Disposition.Home Electronic Signatures: Cyndi Nava () (Signed 01-Jan-2022 12:28) Authored: Discharge Planning, Assessment Seb Raza (STAFF N) (Signed 03-Jan-2022 18:56) Authored: Discharge Planning, Discharge Documentation Last Updated: 03-Jan-2022 18:56 by Seb Raza (STAFF N) References: 1. Data Referenced From Patient Profile - Adult v2 30-Dec-2021 11:15 Normal [facility] Discharge Udrvbry7wv 022 Discharge Profile2 Discharge Orders: Anticipated Discharge Date: Anticipated Discharge [id number] DNAR: Code Status at Discharge: Full Code [...] Xarelto Diastolic CHF, HLD/ HTN transferred from [place] [facility] with chief complaint of abdominal pain. [...] Review of Medication Reconciliation and Orders Completedby FIRE REGULATOR Reviewing ProviderMAGDI Griffiths at 03-Jan-2022 13:14:54 Appointments: Follow-Up Appointment 01: Physician/Dept/ServiceDrSon Abad Reason for ReferralGI- Repeat ERCP in 3 months for stent removal. Phone [phone] Commentsplease call to schedule Follow-Up Appointment 02: Physician/Dept/ServiceDrSon Washington Reason for ReferralSurgery Call to Schedule in10-14 days Phone [phone] Commentsplease call to schedule Follow-Up Appointment 03: Physician/Dept/Servicepcarmando Reason for Referralhospital follow up with primary care doctor Call to Schedule in1 week Commentsplease call to schedule Electronic Signatures: Geovanna Kahn (FIRE REGULATOR-HEAD HOUSEKEEPER) (Signed 03-Jan-2022 13:14) Authored: Discharge Orders, Hospital Course (Home Care/Gold Form), Provider FINAL REVIEW of Orders, Appointments, Gold Form - Oceanographer Geological Summary Last Updated: 03-Jan-2022 13:14 by Geovanna Kahn (FIRE REGULATOR-HEAD HOUSEKEEPER) Normal [facility] HEPATIC FUNCTION PANELon Albumin [Mass/Vol] 3.4 g/dL Normal 3.4 - 5.0 [facility] Comment on above: Performed By: #### M G #### [facility] [address] [place] [address] ALP [Catalytic activity/Vol] 160 U/L High 33 - 136 [facility] Comment on above: Performed By: #### M G #### [address] [place] [address] ALT [Catalytic activity/Vol] 155 U/L High 10 - 52 [facility] Comment on above: Result Comment: Sri ents treated with Sulfasalazine may generate falsely decreased results for ALT. Performed By: #### M G #### [address] [place] [address] AST [Catalytic activity/Vol] 132 U/L High 9 - 39 [facility] Comment on above: Result Comment: MILD HEMOLYSIS DETECTED. The result may be falsely elevated due to hemolysis or other interferents. Clinical correlation is recommended. Repeat testing may be considered. Performed By: #### M G #### [address] [address] Bilirubin [Mass/Vol] 2.9 mg/dL High 0.0 - 1.2 [facility] Comment on above: Performed By: #### M G #### [address] [address] Bilirubin.indirect [Mass/Vol] 1.2 mg/dL High 0.0 - 0.3 [facility] Comment on above: Result Comment: MILD HEMOLYSIS DETECTED. The result may be falsely decreased due to hemolysis or other interferents. Clinical correlation is recommended. Repeat testing may be considered. Performed By: #### M G #### [address] [place] [address] Protein [Mass/Vol] 6.3 g/dL Low 6.4 - 8.2 [facility] Comment on above: Performed By: #### M G #### [address] [place] [address] Hepatic Function Panelon Albumin BCP dye [Mass/Vol] 3.4 g/dL 3.4 - 5.0 [facility] Work Phone: ALP [Catalytic activity/Vol] 160 U/L above high threshold 33 - 136 [facility] Work Phone: ALT With P-5'-P [Catalytic activity/Vol] 155 U/L above high threshold 10 - 52 [facility] [employer] Work Phone: Comment on above: Patients treated wit h Sulfasalazine may generate falsely decreased results for ALT. AST With P-5'-P [Catalytic activity/Vol] 132 U/L above high threshold 9 - 39 [facility] [employer] Work Phone: Comment on above: MILD HEMOLYSIS DETEC LASHELL. The result may be falsely elevated due tohemolysis or other interferents. Clinical correlation is recommended.Repeat testing may be considered. Bilirubin [Mass/Vol] 2.9 mg/dL above high threshold 0.0 - 1.2 [facility] [employer] Work Phone: Bilirubin.direct [Mass/Vol] 1.2 mg/dL above high threshold 0.0 - 0.3 [facility] [employer] Work Phone: Comment on above: MILD HEMOLYSIS DETEC LASHELL. The result may be falsely decreased due tohemolysis or other interferents. Clinical correlation is recommended.Repeat testing may be considered. Protein [Mass/Vol] 6.3 g/dL below low threshold 6.4 - 8.2 [facility] [employer] Work Phone: Laboratory - Chemistry and C hemistry - challengeon 01-01-2022 Albumin BCP dye [Mass/Vol] 3.2 g/dL below low threshold 3.4 - 5.0 [facility] [employer] Work Phone: ALP [Catalytic activity/Vol] 136 U/L 33 - 136 [facility] [employer] Work Phone: ALT With P-5'-P [Catalytic activity/Vol] 137 U/L above high threshold 10 - 52 [facility] [employer] Work Phone: Comment on above: Patients treated wit h Sulfasalazine may generate falsely decreased results for ALT. Anion gap [Moles/Vol] 14 mmol/L 10 - 20 [facility] [employer] Work Phone: AST With P-5'-P [Catalytic activity/Vol] 102 U/L above high threshold 9 - 39 [facility] [employer] Work Phone: Bilirubin [Mass/Vol] 3.5 mg/dL above high threshold 0.0 - 1.2 [facility] [employer] Work Phone: Calcium [Mass/Vol] 8.4 mg/dL below low threshold 8.6 - 10.3 [facility] [employer] Work Phone: Chloride [Moles/Vol] 103 mmol/L 98 - 107 [facility] [employer] Work Phone: CO2 [Moles/Vol] 24 mmol/L 21 - 32 [facility] [employer] Work Phone: Creatinine [Mass/Vol] 0.63 mg/dL See Below [facility] [employer] Work Phone: Comment on above: Reference Range: 0.5 0 - 1.30 Glucose [Mass/Vol] 110 mg/dL above high threshold 74 - 99 [facility] [employer] Work Phone: Potassium [Moles/Vol] 3.7 mmol/L 3.5 - 5.3 [facility] [employer] Work Phone: Protein [Mass/Vol] 5.5 g/dL below low threshold 6.4 - 8.2 [facility] [employer] Work Phone: Sodium [Moles/Vol] 137 mmol/L 136 - 145 [facility] [employer] Work Phone: Urea nitrogen [Mass/Vol] 14 mg/dL 6 - 23 [facility] Work Phone: Laboratory - Hematology and Cell countson 01-01-2022 Erythrocyte distribution width (RBC) [Ratio] 14.1 % See Below [facility] Work Phone: Comment on above: Reference Range: 11. 5 - 14.5 Hematocrit (Bld) [Volume fraction] 39.6 % below low threshold See Below [facility] [employer] Work Phone: Comment on above: Reference Range: 41. 0 - 52.0 Hemoglobin (Bld) [Mass/Vol] 13.1 g/dL below low threshold See Below [facility]enter [facility] [employer] Work Phone: Comment on above: Reference Range: 13. 5 - 17.5 MCHC (RBC) [Mass/Vol] 33.1 g/dL See Below [facility] [employer] Work Phone: Comment on above: Reference Range: 32. 0 - 36.0 MCV (RBC) [Entitic vol] 95 fL 80 - 100 [facility] Work Phone: Platelets (Bld) [#/Vol] 109 10*3/uL below low threshold 150 - 450 [facility] Work Phone: RBC (Bld) [#/Vol] 4.15 {x10E12/L} below low threshold See Below [facility] Work Phone: Comment on above: Reference Range: 4.5 0 - 5.90 WBC (Bld) [#/Vol] 6.3 10*3/uL 4.4 - 11.3 [facility] Work Phone: MAGNESIUMon 01-01-2022 Magnesium [Mass/Vol] 1.90 mg/dL Normal 1.60 - 2.40 [facility] Comment on above: Performed By: #### M G #### [facility] [address] [place] [address] Magnesium, Serumon Magnesium [Mass/Vol] 1.90 mg/dL See Below [facility] [employer] Work Phone: Comment on above: Reference Range: 1.6 0 - 2.40 No Panel Informationon 01-01 >90 >90 [facility] Work Phone: Comment on above: CALCULATIONS OF SHARON MATED GFR ARE PERFORMED USING THE 2020 CKD-EPI STUDY REFIT EQUATION WITHOUT THE RACE VARIABLE FOR THE IDMS-TRACEABLE CREATININE METHODS.https://jasn.asnjournals.org/content/early/A SN.2975988512 0.0 {/100_WBC} 0.0 - 0.0 [facility] [employer] Work Phone: Operative Reports - [place] on 01-01-2022 Operative Reports - [place] SURGEON: Jerrell Washington MD POSTOPERATIVE DIAGNOSES: 1. [...] 66-year-old male patient who was transferred to [facility] from [facility]. The patient presented at [facility] complaining of epigastric right upper quadrant pain radiating to his back. The patient was also markedly jaundiced at that time. The patient was transferred to [facility]. I was not told about the patient's weight. The patient underwent ERCP by Dr. Abad and 2 stents were placed. Multiple stones [...] Jerrell Washington MD EST EST DICTATION NUMBER: [id number] INTERNAL JOB NUMBER: [id number] CC: PCP GLORIA Washington MD Electronic Signatures: Jerrell Washington) (Signed on 14-Jan-2022 11:26) Authored Unsigned, Draft (SYS GENERATED) (Entered on 14-Jan-2022 04:43) Entered Last Updated: 14-Jan-2022 11:26 by Jerrell Washington) [facility] Order Reconciliationon 01-01 Order Reconciliation Page 1 [...] 10 mg (more content not included)... Normal [facility] Surgical Pathology Depar tmenton 01-01-2022 [facility] Surgical Pathology Department Name RICHI HU Pathologist: ÁNGEL RODRIGUEZ MD Date of Procedure: 01/01/2022 Date Received: 01/01/2022 Date Reported 01/25/2022 Submitting Physician: JERRELL WASHINGTON MD Location: [address] Copy To/Referring/Attending: ADOLFO ENRIQUEZ DO Other [...] Center, [place], operated by [facility] [address] [facility] [address] Clinical History: Clinical Diagnosis History: history of [...] disruption, the cystic duct is not identified. Facilities Maintenance Technician sections are submitted in one cassette. IAD iad/01/09/2022 [facility] Department of Pathology [address] [place] [address] Normal [facility] Comment on above: Performed By: #### U HCS #### [facility] Surgical Pathology Department [address] [facility] [address] CBCon 12-31-2021 Erythrocyte distribution width (RBC) [Ratio] 14.3 % Normal 11.5 - 14.5 [facility] Comment on above: Performed By: #### C BC #### [address] [address] Hematocrit (Bld) [Volume fraction] 39.0 % Low 41.0 - 52.0 [facility] Comment on above: Performed By: #### C BC #### [address] [address] Hemoglobin (Bld) [Mass/Vol] 13.0 g/dL Low 13.5 - 17.5 [facility] Comment on above: Performed By: #### C BC #### [address] [address] MCHC (RBC) [Mass/Vol] 33.3 g/dL Normal 32.0 - 36.0 [facility] Comment on above: Performed By: #### C BC #### [address] [address] MCV (RBC) [Entitic vol] 96 fL Normal 80 - 100 [facility] Comment on above: Performed By: #### C BC #### [address] [address] NUCLEATED RBC 0.0 /100 WBC Normal 0.0 - 0.0 [facility] Comment on above: Performed By: #### C BC #### [address] [address] Platelets (Bld) [#/Vol] 138 10*3/uL Low 150 - 450 [facility] Comment on above: Performed By: #### C BC #### [address] [address] RBC 4.06 x10E12/L Low 4.50 - 5.90 [facility] Comment on above: Performed By: #### C BC #### [address] [address] WBC (Bld) [#/Vol] 6.0 10*3/uL Normal 4.4 - 11.3 [facility] Comment on above: Performed By: #### C BC #### [address] [address] COMPREHENSIVE PANELon 2021 Albumin [Mass/Vol] 3.2 g/dL Low 3.4 - 5.0 [facility] Comment on above: Performed By: #### C MP ####[address] [address] ALP [Catalytic activity/Vol] 118 U/L Normal 33 - 136 [facility] Comment on above: Performed By: #### C MP ####[address] [address] ALT [Catalytic activity/Vol] 165 U/L High 10 - 52 [facility] Comment on above: Result Comment: Sri ents treated with Sulfasalazine may generate falsely decreased results for ALT. Performed By: #### C MP ####[address] [address] Anion gap [Moles/Vol] 11 mmol/L Normal 10 - 20 [facility] Comment on above: Performed By: #### C MP ####[address] [address] AST [Catalytic activity/Vol] 170 U/L High 9 - 39 [facility] Comment on above: Performed By: #### C MP ####[address] [address] Bilirubin [Mass/Vol] 7.3 mg/dL High 0.0 - 1.2 [facility] Comment on above: Performed By: #### C MP ####[address] [place] [address] Calcium [Mass/Vol] 8.3 mg/dL Low 8.6 - 10.3 [facility] Comment on above: Performed By: #### C MP ####[address] [address] Chloride [Moles/Vol] 103 mmol/L Normal 98 - 107 [facility] Comment on above: Performed By: #### C MP ####[address] [address] Creatinine [Mass/Vol] 0.79 mg/dL Normal 0.50 - 1.30 [facility] Comment on above: Performed By: #### C MP ####[address] [address] eGFR MALE >90 Normal >90 [facility] Comment on above: Result Comment: CALC ULATIONS OF ESTIMATED GFR ARE PERFORMED USING THE 2020 CKD-EPI STUDY REFIT EQUATION WITHOUT THE RACE VARIABLE FOR THE IDMS-TRACEABLE CREATININE METHODS. https://jasn.asnjournals.org/content//ASN.27587 [address] Performed By: #### C MP ####[address] [address] Glucose [Mass/Vol] 112 mg/dL High 74 - 99 [facility] Comment on above: Performed By: #### C MP ####[address] [address] HCO3 (Bld) [Moles/Vol] 27 mmol/L Normal 21 - 32 [facility] Comment on above: Performed By: #### C MP ####[address] [address] Potassium [Moles/Vol] 3.5 mmol/L Normal 3.5 - 5.3 [facility] Comment on above: Performed By: #### C MP ####[address] [place] [address] Protein [Mass/Vol] 5.3 g/dL Low 6.4 - 8.2 [facility] Comment on above: Performed By: #### C MP ####[facility] [place] [address] Sodium [Moles/Vol] 137 mmol/L Normal 136 - 145 [facility] Comment on above: Performed By: #### C MP ####[facility] [place] [address] Urea nitrogen [Mass/Vol] 11 mg/dL Normal 6 - 23 [facility] Comment on above: Performed By: #### C MP ####[facility] [place] [address] Daily Progress Note-Gastroen terologyon 12-31-2021 Daily Progress Note-Gastroenterology Service: Gastroenterology Subjective Data: RICHI HU is a 66 year old Male who is Hospital Day # 2. Patient lying in bed with continued abdominal discomfort, though fairly well controlled with analgesics. Nausea improved. Bilirubin up trended to 7.3. Jaundice noticed. Plan for ERCP today with Dr. Abad. Objective Data: Objective Information: T PRBPMAPSpO2 [id number]/105140% Date/Time12/31 12: 12: 12: 12: 10: 12:00 [...] rash or ecchymosis Medication: Medications: Continuous Medications ----- 1. Lactated Ringers Infusion: 1000 mL IntraVenous Scheduled Medications ----- 1. Aztreonam IV Piggy Back: 1000 mg IntraVenous Piggyback Every 8 Hours 2. Lisinopril: 20 mg Oral Daily 3. metroNIDAZOLE (FLAGYL) 500 mg IVPB/ Premixed Soln 100 mL: 100 mL IntraVenous Piggyback Every 8 Hours 4. Sotalol: 120 mg Oral 2 Times a Day PRN Medications ----- 1. Acetaminophen: 650 mg Oral Every 4 [...] Hours and as Needed Currently Suspended Medications ----- 1. Furosemide: 40 mg Oral Daily 2. Rivaroxaban: 20 mg Oral Recent Lab Results: Results: I have reviewed these laboratory results: Complete Blood Count Trending View [id number] 06:08:00 30-Dec-2021 12:06:00 White Blood Cell Count6.0 9.3 Nucleated Erythrocyte Count0.0 0.0 Red Blood Cell Count4.06 L 4.31 L HGB13.0 L 13.9 HCT39.0 L 41.3 MCV96 96 MCHC33.3 33.7 ZMD690 L 140 L RDW-CV14.3 13.9 Comprehensive Metabolic Panel Trending View [id number] 06:08:00 30-Dec-2021 12:06:00 Glucose, Nqlvk736 H 126 H NA137 137 K3.5 3.7 CL103 100 Bicarbonate, Serum27 29 Anion Gap, Serum11 12 BUN11 11 CREAT0.79 0.75 GFR Male>90 >90 Calcium, Serum8.3 L 8.5 L ALB3.2 L 3.6 OKPF806 109 T Pro5.3 L 5.8 L T Bili7.3 H 5.1 H Alanine Aminotransferase, Dmweu230 H 140 H Aspartate Transaminase, Egxgo411 H 190 H Magnesium, Serum Trending View [id number] 06:08:00 30-Dec-2021 12:06:00 Magnesium, Serum1.80 1.90 Urinalysis 30-Dec-2021 17:21:00 ResultValue Color, Urine JAVY Reference Range: STRAW,YELLOW Appearance, Urine CLEAR Specific [place], Urine 1.044 H pH, Urine 5.0 Protein, [...] thickening. Cho (more content not included)... Normal [facility] Daily Progress Note-General Internal Medicineon 12-31-2021 Daily [...] vomiting. Objective Data: Objective Information: T PRBPMAPSpO2 [id number]/[id number]% Date/Time12/31 8: 8: 8: 8: 10: 8:00 [...] and as Needed PRN Currently Suspended Medications ----- 1. Furosemide: 40 mg Oral Daily 2. Rivaroxaban: 20 mg Oral Recent Lab Results: Results: CBC: 12/31/2021 06:08 \ Hgb / \ 13.0 L / WBC Plt 6.0 138 L / Hct \ / 39.0 L \ RBC: 4.06 L MCV: 96 CMP: 12/31/2021 06:08 NA+ Cl- BUN / 137 103 11 / ----- Glucose 112 H K+ HCO3- Creat \ [...] CODE STATUS: FULL Electronic Signatures: Geovanna Kahn (FIRE REGULATOR-HEAD HOUSEKEEPER) (Signed 31-Dec-2021 11:17) Authored: Service, Subjective Data, Objective Data, Assessment and Plan, (more content not included)... Normal [facility] ERCPon 12-31-2021 ERCP PATIENTNAME Patient Name: Richi Hu EXAMDATE Procedure Date: 12/31/2021 2:17 PM PATIENTID PATIENTACCOUNTNUM PATIENTDOB Date of : 1955 ADMITTYPE Admit Type: Inpatient PATIENTROOM Site: [facility] Endo 1 ETHNICITY Ethnicity: Unknown RACE Race: Unknown PROVDR Attending MD: Argelia Abad MD, [id number] ENDOPROCEDURENAME Procedure: ERCP INDICATION Indications: Common bile duct stone(s), Abdominal pain of suspected biliary origin, Abnormal abdominal CT, Biliary dilation on Ultrasound, Suspected ascending cholangitis, Jaundice, Elevated liver enzymes PTPROFILE Patient Profile: This is a 66 year old male. Refer to note in patient chart for documentation of history and physical. PRIMARYPROVIDER Providers: Argelia Abad MD (Doctor), Collin Vazquez RN (Nurse), Adi Friedman, Rodding Machine Tender EDREFPROVIDER Referring: CURRENT_MEDS Medicines: General Anesthesia COMPLIC [...] tolerated the procedure well. FINDING Findings: The end finder forming department film was normal. A standard esophagogastroduodenoscopy scope [...] - Retu (more content not included)... Normal [facility] Laboratory - Chemistry and C hemistry - challengeon 12-31-2021 Albumin BCP dye [Mass/Vol] 3.2 g/dL below low threshold 3.4 - 5.0 -[facility] Work Phone: ALP [Catalytic activity/Vol] 118 U/L 33 - 136 [facility] Work Phone: ALT With P-5'-P [Catalytic activity/Vol] 165 U/L above high threshold 10 - 52 [facility] [employer] Work Phone: Comment on above: Patients treated wit h Sulfasalazine may generate falsely decreased results for ALT. Anion gap [Moles/Vol] 11 mmol/L 10 - 20 [facility] [employer] Work Phone: AST With P-5'-P [Catalytic activity/Vol] 170 U/L above high threshold 9 - 39 [facility] [employer] Work Phone: Bilirubin [Mass/Vol] 7.3 mg/dL above high threshold 0.0 - 1.2 [facility] [employer] Work Phone: Calcium [Mass/Vol] 8.3 mg/dL below low threshold 8.6 - 10.3 [facility] [employer] Work Phone: Chloride [Moles/Vol] 103 mmol/L 98 - 107 [facility] [employer] Work Phone: CO2 [Moles/Vol] 27 mmol/L 21 - 32 [facility] [employer] Work Phone: Creatinine [Mass/Vol] 0.79 mg/dL See Below [facility] [employer] Work Phone: Comment on above: Reference Range: 0.5 0 - 1.30 Glucose [Mass/Vol] 112 mg/dL above high threshold 74 - 99 [facility] [employer] Work Phone: Potassium [Moles/Vol] 3.5 mmol/L 3.5 - 5.3 [facility] Gastroenter oly-[facility] Work Phone: Protein [Mass/Vol] 5.3 g/dL below low threshold 6.4 - 8.2 [facility] [employer] Work Phone: Sodium [Moles/Vol] 137 mmol/L 136 - 145 -[facility] [employer] Work Phone: Urea nitrogen [Mass/Vol] 11 mg/dL 6 - 23 -[facility] Work Phone: Laboratory - Hematology and Cell countson 12-31-2021 Erythrocyte distribution width (RBC) [Ratio] 14.3 % See Below [facility] Work Phone: Comment on above: Reference Range: 11. 5 - 14.5 Hematocrit (Bld) [Volume fraction] 39.0 % below low threshold See Below [facility] [employer] Work Phone: Comment on above: Reference Range: 41. 0 - 52.0 Hemoglobin (Bld) [Mass/Vol] 13.0 g/dL below low threshold See Below [facility] [employer] Work Phone: Comment on above: Reference Range: 13. 5 - 17.5 MCHC (RBC) [Mass/Vol] 33.3 g/dL See Below [facility] [employer] Work Phone: Comment on above: Reference Range: 32. 0 - 36.0 MCV (RBC) [Entitic vol] 96 fL 80 - 100 -Univ Gastroenter ology-[facility] [employer] Work Phone: Platelets (Bld) [#/Vol] 138 10*3/uL below low threshold 150 - 450 -Univ Gastroenter ology-[facility] Work Phone: RBC (Bld) [#/Vol] 4.06 {x10E12/L} below low threshold See Below [facility] [employer] Work Phone: Comment on above: Reference Range: 4.5 0 - 5.90 WBC (Bld) [#/Vol] 6.0 10*3/uL 4.4 - 11.3 [facility] Work Phone: MAGNESIUMon 12-31-2021 Magnesium [Mass/Vol] 1.80 mg/dL Normal 1.60 - 2.40 [facility] Comment on above: Performed By: #### M G #### [facility] [address] [place] [address] Magnesium, Serumon Magnesium [Mass/Vol] 1.80 mg/dL See Below [facility] Work Phone: Comment on above: Reference Range: 1.6 0 - 2.40 No Panel Informationon 12-31 [facility] Work Phone: [email or web address]} [facility] Work Phone: >90 >90 [facility] Work Phone: Comment on above: CALCULATIONS OF SHARON MATED GFR ARE PERFORMED USING THE 2020 CKD-EPI STUDY REFIT EQUATION WITHOUT THE RACE VARIABLE FOR THE IDMS-TRACEABLE CREATININE METHODS.https://jasn.asnjournals.org/content/early/A SN.7435040799 0.0 {/100_WBC} 0.0 - 0.0 [facility] Work Phone: Radiologyon 12-31-2021 Fluoroscopy duration Please click on the link to view the study images Normal [facility] Work Phone: [facility] Surgical Pathology Depar tmenton 12-31-2021 [facility] Surgical Pathology Department Name RICHI HU Pathologist: ANGY AMARO MD Date of Procedure: 12/31/2021 Date Received: 12/31/2021 Date Reported 01/02/2022 Submitting Physician: ARGELIA ABAD MD Location: [address] Copy To/Referring/Attending: ADOLFO ENRIQUEZ, DO Other [...] reviewed this case. Diagnostic interpretation performed at [address] [place] [address] Clinical History: CBD obstruction, elevated LFT's, gastric [...] is submitted in toto in one cassette. [facility]/01/01/2022 [facility] Department of Pathology [address] [place] [address] Normal [facility] Comment on above: Performed By: #### U [facility] #### [facility] Surgical Pathology Department [address] [place] [address] Absolute lymphocyte counton 12-30-2021 Lymphocytes Auto (Unsp spec) [#/Vol] 1.58 10*3/uL 0.83-4.51 [facility] Work Phone: Admission Risk Screen - Adul [...] AlertFor Ebola-like Symptoms: Isolate Patient and Notify Provider/High Voltage Electrician For Contact: Notify Provider/High Voltage Electrician Advance Directive: Advance Directive/DNRno Advance Directive Information [...] written material; video Cultural Considerationsnone Developmental Considerationsnone Anglican Considerationsnone Learning Assessment (Other Learner): Other learner availableno Depression Screen: During the past month, have you often been bothered by feeling down, depressed or hopelessno During the past month, have you often had little interest or pleasure in doing thingsno Have you had any thoughts of harming anyone elseno [place] Suicide: Risk Screen Not Applicable/Able to Answerable to be screened In the Past Month: Have you wished you were or could go to sleep and not wake upno In the Past Month: Have you had any actual thoughts of killing yourselfno Lifetime: Have you ever done, started to do, or prepared to do anything to end your lifeno [place] Suicide Risknegative Adult Nutrition Screen: Have you [...] Spiritual Screen: Are there any cultural, spiritual, voodoo practices/values/needs that are important for us to knowno CAGE: Is this an injured patient at a Trauma Center ([place]/[facility]/[place]): no Vaccinations: Vaccination - Influenza Vaccination Screen: Is it flu season (between and May 30)Yes Screening for identified contraindications to influenza vaccinationpatient already received vaccine this season Vaccination - Pneumonia Vaccination Screen: Patient has received a previous pneumonia vaccine:no/unknown... Immunocompetent persons with underlying chronic conditions or reside in usp dc (more content not included)... Normal [facility] BILIRUBIN,DIRECTon Bilirubin.indirect [Mass/Vol] 2.7 mg/dL High 0.0 - 0.3 [facility] Comment on above: Performed By: #### M G #### [facility] [address] [place] [address] Basophil percentageon 2021 Lactate [Moles/Vol] 2.2 mmol/L 0.4-2.0 [facility] Work Phone: [phone] Comment on above: Critical Result(s) C alled at: 06:06:39 12/30/2021 by: Veronika Caldwell. Results read back by same. Basophil percentage 0-5 SEEN /hpf 0-5 [facility] Work Phone: Basophils/100 WBC (Bld) 0.6 % 0-1 [facility] Work Phone: [phone] Bilirubin [Mass/Vol] 2.70 mg/dL 0.20-1.00 [facility] Work Phone: Comment on above: For patients on eltr ombopag therapy, use of Dimension [place] TBIL is not recommended. Chloride [Moles/Vol] 104 mmol/L 98-107 [facility] Work Phone: Eosinophils/100 WBC (Bld) 1.8 % 0-5 [facility] Work Phone: Glucose [Mass/Vol] 156 mg/dL 74-106 [facility] Work Phone: Comment on above: Fasting Glucose resu lt greater than or equal to 126 mg/dL suggests DIABETES MELLITUS per A.D.A. criteria. Neutrophils (Bld) [#/Vol] 5.4 10*3/uL 2.0-7.7 [facility] Work Phone: Neutrophils/100 WBC (Bld) 68.5 % 47-70 [facility] Work Phone: Potassium [Moles/Vol] 3.7 mmol/L 3.5-5.1 [facility] Work Phone: Protein [Mass/Vol] 6.8 g/dL 6.4-8.2 [facility] Work Phone: Sodium [Moles/Vol] 139 mmol/L 136-145 [facility] Work Phone: [phone] WBC (Bld) [#/Vol] 7.9 10*3/uL 4.4-11.0 [facility] Work Phone: Bilirubin Test strip Ql (U)o n 12-30-2021 Bilirubin Ql (U) Negative Negative [facility] Work Phone: Bilirubin, Serum Direct - Co njugatedon 12-30-2021 Bilirubin.direct [Mass/Vol] 2.7 mg/dL above high threshold 0.0 - 0.3 [facility] Work Phone: Blood erythrocytes count (nu mber/volume)on 12-30-2021 RBC (Bld) [#/Vol] 4.59 10*6/uL 4.6-6.2 [facility] Work Phone: Blood hemoglobin measurement (mass/volume)on 12-30-2021 Hemoglobin (Bld) [Mass/Vol] 14.8 g/dL 13.0-16.5 [facility] Work Phone: Blood lymphocytes/100 leukoc yteson 12-30-2021 Lymphocytes/100 WBC (Bld) 20.1 % 19-41 [facility] Work Phone: Blood monocytes/100 leukocyt eson 12-30-2021 Monocytes/100 WBC (Bld) 8.6 % 0-10 [facility] Work Phone: [phone] Blood platelet mean volumeon 12-30-2021 Platelet mean volume (Bld) [Entitic vol] 9.6 fL 6.2-12.0 [facility] Work Phone: [phone] CBCon 12-30-2021 Erythrocyte distribution width (RBC) [Ratio] 13.9 % Normal 11.5 - 14.5 [facility] Comment on above: Performed By: #### M G #### [address] [address] Hematocrit (Bld) [Volume fraction] 41.3 % Normal 41.0 - 52.0 [facility] Comment on above: Performed By: #### M G #### [place] [id number] [place] [address] Hemoglobin (Bld) [Mass/Vol] 13.9 g/dL Normal 13.5 - 17.5 [facility] Comment on above: Performed By: #### M G #### [address] [address] MCHC (RBC) [Mass/Vol] 33.7 g/dL Normal 32.0 - 36.0 [facility] Comment on above: Performed By: #### M G #### [address] [address] MCV (RBC) [Entitic vol] 96 fL Normal 80 - 100 [facility] Comment on above: Performed By: #### M G #### [address] [address] NUCLEATED RBC 0.0 /100 WBC Normal 0.0 - 0.0 [facility] Comment on above: Performed By: #### M G #### [address] [address] Platelets (Bld) [#/Vol] 140 10*3/uL Low 150 - 450 [facility] Comment on above: Performed By: #### M G #### [address] [address] RBC 4.31 x10E12/L Low 4.50 - 5.90 [facility] Comment on above: Performed By: #### M G #### [address] [address] WBC (Bld) [#/Vol] 9.3 10*3/uL Normal 4.4 - 11.3 [facility] Comment on above: Performed By: #### M G #### [address] [address] COMPREHENSIVE PANELon 2021 Albumin [Mass/Vol] 3.6 g/dL Normal 3.4 - 5.0 [facility] Comment on above: Performed By: #### M G #### [address] [address] ALP [Catalytic activity/Vol] 109 U/L Normal 33 - 136 [facility] Comment on above: Performed By: #### M G #### [address] [place] [address] ALT [Catalytic activity/Vol] 140 U/L High 10 - 52 [facility] Comment on above: Result Comment: Sri ents treated with Sulfasalazine may generate falsely decreased results for ALT. Performed By: #### M G #### [address] [place] [address] Anion gap [Moles/Vol] 12 mmol/L Normal 10 - 20 [facility] Comment on above: Performed By: #### M G #### [address] [place] [address] AST [Catalytic activity/Vol] 190 U/L High 9 - 39 [facility] Comment on above: Performed By: #### M G #### [address] [place] [address] Bilirubin [Mass/Vol] 5.1 mg/dL High 0.0 - 1.2 [facility] Comment on above: Performed By: #### M G #### [address] [place] [address] Calcium [Mass/Vol] 8.5 mg/dL Low 8.6 - 10.3 [facility] Comment on above: Performed By: #### M G #### [address] [place] [address] Chloride [Moles/Vol] 100 mmol/L Normal 98 - 107 [facility] Comment on above: Performed By: #### M G #### [address] [place] [address] Creatinine [Mass/Vol] 0.75 mg/dL Normal 0.50 - 1.30 [facility] Comment on above: Performed By: #### M G #### [address] [place] [address] eGFR MALE >90 Normal >90 [facility] Comment on above: Result Comment: CALC ULATIONS OF ESTIMATED GFR ARE PERFORMED USING THE 2020 CKD-EPI STUDY REFIT EQUATION WITHOUT THE RACE VARIABLE FOR THE IDMS-TRACEABLE CREATININE METHODS. https://jasn.asnjournals.org/content//ASN.00212 36117 Performed By: #### M G #### [address] [address] Glucose [Mass/Vol] 126 mg/dL High 74 - 99 [facility] Comment on above: Performed By: #### M G #### [address] [address] HCO3 (Bld) [Moles/Vol] 29 mmol/L Normal 21 - 32 [facility] Comment on above: Performed By: #### M G #### [address] [address] Potassium [Moles/Vol] 3.7 mmol/L Normal 3.5 - 5.3 [facility] Comment on above: Performed By: #### M G #### [address] [address] Protein [Mass/Vol] 5.8 g/dL Low 6.4 - 8.2 [facility] Comment on above: Performed By: #### M G #### [address] [address] Sodium [Moles/Vol] 137 mmol/L Normal 136 - 145 [facility] Comment on above: Performed By: #### M G #### [address] [address] Urea nitrogen [Mass/Vol] 11 mg/dL Normal 6 - 23 [facility] Comment on above: Performed By: #### M G #### [address] [address] Clinical Intervention - Ora barrera 12-30-2021 Clinical Intervention - Pharmacy Pharmacist's Clinical Intervention: Is this intervention medication reconciliation related: yes, HISTORY Electronic Signatures: Jayla Baig (Fly Victor) (Signed 30-Dec-2021 12:22) Authored: Pharmacist's Clinical Intervention Last Updated: 30-Dec-2021 12:22 by Jayla Baig (Fly Victor) Normal [facility] Consult-Gastroenterologyon 1 Consult-Gastroenterolo gy Service: Service: Gastroenterology Consult: Consult requested by [...] No previous similar episodes. He presented to [facility] and was transferred for further management. Imaging there consistent with cholelithiasis without cholecystitis. No leukocytosis, liver enzymes noted T bili 2.7, ALT 71/AST 95, ALP 123. He has never had EGD. Most recent colonoscopy 2 years ago at [facility] with polyp removed. His last dose of [...] Itching, Hives/Urticaria Objective: Objective Information: T PRBPMAPSpO2 [id number]% Date/Time12/30 10: 10: 10: 10: 10: 10:45 [...] rash or ecchymosis Medications: Medications: Continuous Medications ----- No continuous medications are active Scheduled Medications ----- 1. Aztreonam IV Piggy Back: 1000 mg IntraVenous Piggyback Every 8 Hours 2. Lisinopril: 20 mg Oral Daily 3. metroNIDAZOLE (FLAGYL) 500 mg IVPB/ Premixed Soln 100 mL: 100 mL IntraVenous Piggyback Every 8 Hours 4. Sotalol: 120 mg Oral 2 Times a Day PRN Medications ----- 1. Bisacodyl Enteric Coated: 5 mg Oral [...] Hours and as Needed Currently Suspended Medications ----- 1. Furosemide: 40 mg Oral Daily 2. Rivaroxaban: 20 mg Oral Recent Lab Results: Results: I have reviewed these laboratory results: Complete Blood Count 30-Dec-2021 12:06:00 ResultValue White Blood Cell Count 9.3 Nucleated Erythrocyte Count 0.0 Red Blood Cell Count 4.3 (more content not included)... Normal [facility] Consult-Gastroenterolo gy This report has been cancelled. Normal [facility] Determination of erythrocyte mean corpuscular volume (MCV)on 12-30-2021 MCV (RBC) [Entitic vol] 93.5 fL 80-94 [facility] Work Phone: EMR ADDONon 12-30-2021 ADDON CONFIRMATION REQUEST REC'D Normal [facility] Comment on above: Performed By: #### E MRAD #### [facility] [address] [place] [id number] Hematocrit Auto (Bld) [Volum e fraction]on 12-30-2021 Hematocrit (Bld) [Volume fraction] 42.9 % 40-54 [facility] Work Phone: Ketones Test strip Ql (U)on 12-30-2021 Ketones Ql (U) Negative Negative [facility] Work Phone: Laboratory - Chemistry and C hemistry - challengeon 12-30-2021 Albumin BCP dye [Mass/Vol] 3.6 g/dL 3.4 - 5.0 [facility] Work Phone: ALP [Catalytic activity/Vol] 109 U/L 33 - 136 [facility] Work Phone: ALT With P-5'-P [Catalytic activity/Vol] 140 U/L above high threshold 10 - 52 [facility] Work Phone: Comment on above: Patients treated wit h Sulfasalazine may generate falsely decreased results for ALT. Anion gap [Moles/Vol] 12 mmol/L 10 - 20 [facility] Work Phone: AST With P-5'-P [Catalytic activity/Vol] 190 U/L above high threshold 9 - 39 [facility] [employer] Work Phone: Bilirubin [Mass/Vol] 5.1 mg/dL above high threshold 0.0 - 1.2 [facility]: Calcium [Mass/Vol] 8.5 mg/dL below low threshold 8.6 - 10.3 [facility] Work Phone: Chloride [Moles/Vol] 100 mmol/L 98 - 107 [facility] Work Phone: CO2 [Moles/Vol] 29 mmol/L 21 - 32 [facility] Work Phone: Creatinine [Mass/Vol] 0.75 mg/dL See Below [facility] Work Phone: Comment on above: Reference Range: 0.5 0 - 1.30 Glucose [Mass/Vol] 126 mg/dL above high threshold 74 - 99 [facility] Work Phone: Potassium [Moles/Vol] 3.7 mmol/L 3.5 - 5.3 [facility]enter [facility] [employer] Work Phone: Protein [Mass/Vol] 5.8 g/dL below low threshold 6.4 - 8.2 [facility] [employer] Work Phone: Sodium [Moles/Vol] 137 mmol/L 136 - 145 [facility]enter [facility] [employer] Work Phone: Urea nitrogen [Mass/Vol] 11 mg/dL 6 - 23 [facility] Work Phone: ALP [Catalytic activity/Vol] 123 U/L 45-117 [facility] Work Phone: ALT [Catalytic activity/Vol] 71 U/L 16-61 [facility] Work Phone: CO2 [Moles/Vol] 26.0 mmol/L 21.0-32.0 [facility] Work Phone: Globulin (S) [Mass/Vol] 3.3 g/dL 2.2-4.2 [facility] Work Phone: Urea nitrogen/Creatinine [Mass ratio] 13.9 mg/mg 10-20 [facility] Work Phone: Laboratory - Hematology and Cell countson 12-30-2021 Erythrocyte distribution width (RBC) [Ratio] 13.9 % See Below [facility] Work Phone: Comment on above: Reference Range: 11. 5 - 14.5 Hematocrit (Bld) [Volume fraction] 41.3 % See Below [facility] Work Phone: Comment on above: Reference Range: 41. 0 - 52.0 Hemoglobin (Bld) [Mass/Vol] 13.9 g/dL See Below [facility] Work Phone: Comment on above: Reference Range: 13. 5 - 17.5 MCHC (RBC) [Mass/Vol] 33.7 g/dL See Below [facility] Work Phone: Comment on above: Reference Range: 32. 0 - 36.0 MCV (RBC) [Entitic vol] 96 fL 80 - 100 [facility] Work Phone: Platelets (Bld) [#/Vol] 140 10*3/uL below low threshold 150 - 450 [facility] Work Phone: RBC (Bld) [#/Vol] 4.31 {x10E12/L} below low threshold See Below [facility] Work Phone: Comment on above: Reference Range: 4.5 0 - 5.90 WBC (Bld) [#/Vol] 9.3 10*3/uL 4.4 - 11.3 [facility] Work Phone: Erythrocyte distribution width (RBC) [Entitic vol] 46.8 fL 35.1-43.9 [facility] Work Phone: Erythrocyte distribution width (RBC) [Ratio] 13.7 % 11.6-14.6 [facility] Work Phone: Immature granulocytes/100 WBC (Bld) 0.400 % 0.0-0.9 [facility] Work Phone: Comment on above: IG% - Immature Granu locytes (promyelocytes, myelocytes and metamyelocytes) > 1% indicates that a LEFT SHIFT is Present. MCH (RBC) [Entitic mass] 32.2 pg 27.0-32.0 [facility] Work Phone: Nucleated RBC/100 WBC (Bld) [Ratio] 0 % 0-5 [facility] Work Phone: MAGNESIUMon 12-30-2021 Magnesium [Mass/Vol] 1.90 mg/dL Normal 1.60 - 2.40 [facility] Comment on above: Performed By: #### M G #### [facility] [address] [place] [address] MCHC Auto (RBC) [Mass/Vol]on 12-30-2021 MCHC (RBC) [Mass/Vol] 34.5 g/dL 32-36 [facility] Work Phone: Magnesium, Serumon 2 Magnesium [Mass/Vol] 1.90 mg/dL See Below [facility] marc [employer] Work Phone: Comment on above: Reference Range: 1.6 0 - 2.40 Mucus LM Ql (Urine sed)on Mucus Ql (Urine sed) 0 SEEN /hpf [facility] Work Phone: Nitrite Test strip Ql (U)on 12-30-2021 Nitrite Ql (U) Negative Negative [facility] Work Phone: No Panel Informationon 12-30 >90 >90 [facility]astroenter [facility] [employer] Work Phone: Comment on above: CALCULATIONS OF SHARON MATED GFR ARE PERFORMED USING THE 2020 CKD-EPI STUDY REFIT EQUATION WITHOUT THE RACE VARIABLE FOR THE IDMS-TRACEABLE CREATININE METHODS.https://jasn.asnjournals.org/content//A SN.6267593911 0.0 {/100_WBC} 0.0 - 0.0 [employer] [facility] Work Phone: Estimated Creatinine Clearance Calc 119.05 ml/min [facility] Work Phone: Estimated GFR (MDRD) Amer 127 mL/min >60 [facility] Work Phone: Comment on above: GFR Calc Estimated GFR (MDRD) Non-Af Amer 105 mL/min >60 [facility] Work Phone: Comment on above: Non- GFR Calc Order Reconciliationon 12-30 Order Reconciliation Page 1 Admission Reconciliation Document Reconciliation Type: Admission requested on behalf of Geovanna Kahn (Advanced Practice Nurse-Admit) done by Geovanna Kahn (FIRE REGULATOR-HEAD HOUSEKEEPER) Admission - Reconciliation: 30-Dec-2021 11:40 by: Geovanna Kahn (FIRE REGULATOR-HEAD HOUSEKEEPER) Home MedicationsEnteredLast Dose TakenReconciled with current Order Reconciliation Comment/ Additional Information furosemide 40 mg oral tablet 1 tab(s) orally once a [id number] PM Furosemide Tablet (LASIX)DOSE = 40 mg Oral Dailyfurosemide 40 mg oral tablet is continued and suspended as Furosemide lisinopril 20 mg oral tablet 1 tab(s) orally once a [id number] AM Lisinopril Tablet (PRINIVIL, ZESTRIL)DOSE = 20 mg Oral Dailylisinopril 20 mg oral tablet continued as the inpatient order Lisinopril sotalol 120 mg oral tablet 1 tab(s) orally 2 times a [id number]-2021 AM Sotalol Tablet (BETAPACE)DOSE = 120 mg Oral 2 Times a Day sotalol 120 mg oral tablet continued as the inpatient order Sotalol Xarelto 20 mg oral tablet 1 tab(s) orally once a day (in the evening) [id number] PM Blood in Urine, Monitor for Xarelto 20 mg oral tablet continued as the inpatient order Blood in Urine, Monitor for; Xarelto 20 mg oral tablet continued as the inpatient order Bleeding, Monitor for; Xarelto 20 mg oral tablet continued as the inpatient order Rivaroxaban Xarelto 20 mg oral tablet 1 tab(s) orally once a day (in the evening) [id number] PM Bleeding, Monitor for Xarelto 20 mg oral tablet continued as the inpatient order Blood in Urine, Monitor for; Xarelto 20 mg oral tablet continued as the inpatient order Bleeding, Monitor for; Xarelto 20 mg oral tablet continued as the inpatient order Rivaroxaban Xarelto 20 mg oral tablet 1 tab(s) orally once a day (in the evening) [id number] PM Rivaroxaban Tablet (XARELTO)DOSE = 20 mg [...] Every 8 Hours and as Needed Normal [facility] Patient Profile - Adult v2on 12-30-2021 Patient Profile - Adult v2 Profile: Initial Info: How to be AddressedRichi Mckeon Spoken Language PreferredEnglish Source of Informationpatient Stated Reason for Admissiontransferred for stomach pain Primary Contact Name and NumberHoma, Other Contact Names and NumbersMary, Wants Family/Rep Notified of Admissionyes, primary contact Notify PCPnotify PCP Informed of Patient Visiting Rightsyes Limitations on Visitors/Phone [place] Was Admitted To in Past 90 Daysnone Employment Statusemployed Current or Previous Servicenone Patient Belongingsremains with patient Patient Belongings Remaining with Patientmedical device; vision aids; cell phone/electronics; clothing Medications Brought to Hospitalno History of MDROno General Health: Weight in kg216.3 kilogram(s)(1) Weight in pdo536.8 pound(s) Weight Methodactual (measured) (1) Scale Typebed [...] [facility] [place] Significant IndicatorsComplete Information Review: Allergies, Home Meds [...] From 1. Vital Signs 30-Dec-2021 10:45 Normal [facility] Platelets bldon 12-30-2021 Platelets (Bld) [#/Vol] 193 10*3/uL 150-450 [facility] Work Phone: Protein Test strip Ql (U)on 12-30-2021 Protein Ql (U) Negative Negative [facility] Work Phone: Serum or plasma albumin emre urement (mass/volume)on 12-30-2021 Albumin [Mass/Vol] 3.5 g/dL 3.2-5.0 [facility] Work Phone: Serum or plasma albumin/glob ulin mass ratioon 12-30-2021 Albumin/Globulin [Mass ratio] 1.1 {ratio} 0.9-2.4 [facility] Work Phone: Serum or plasma calcium emre urement (mass/volume)on 12-30-2021 Calcium [Mass/Vol] 9.1 mg/dL 8.5-10.1 [facility] Work Phone: Serum or plasma creatinine m easurement (mass/volume)on 12-30-2021 Creatinine [Mass/Vol] 0.79 mg/dL 0.70-1.30 [facility] Work Phone: Comment on above: The validity of the calculated GFR & GFRAA in patients over 70 years has not been determined. Clinical correlation is essential. Serum or plasma urea nitroge n measurement (mass/volume)on 12-30-2021 Urea nitrogen [Mass/Vol] 11 mg/dL 7-18 [facility] Work Phone: Squamous epithelial cells de tection in urine sediment by light microscopyon 12-30-2021 Epithelial cells.squamous LM Ql (Urine sed) 0 SEEN /hpf 0-5 [facility] Work Phone: Thin prep Papanicolaou smear with manual screeningon 12-30-2021 Thin prep Papanicolaou smear with manual screening 95 U/L 15-37 [facility] Work Phone: Thin prep Papanicolaou smear with manual screening 9 5-15 [facility] Work Phone: URINALYSISon 12-30-2021 Appearance (U) CLEAR Normal CLEAR [facility] Comment on above: Performed By: #### M G #### [address] [place] [address] Bilirubin Ql (U) SMALL(1+) Abnormal NEGATIVE [facility] Comment on above: Performed By: #### M G #### [address] [place] [address] Color (U) JAVY Normal STRAW,YELL OW [facility] Comment on above: Performed By: #### M G #### [address] [place] [address] Glucose Ql (U) Negative Normal NEGATIVE [facility] Comment on above: Performed By: #### M G #### [address] [address] Hemoglobin Ql (U) Negative Normal NEGATIVE [facility] Comment on above: Performed By: #### M G #### [address] [address] Ketones Ql (U) Negative Normal NEGATIVE [facility] Comment on above: Performed By: #### M G #### [address] [address] Leukocyte esterase Test strip Ql (U) Negative Normal NEGATIVE [facility] Comment on above: Performed By: #### M G #### [address] [address] Nitrite Ql (U) Negative Normal NEGATIVE [facility] Comment on above: Performed By: #### M G #### [address] [place] [address] pH (U) 5.0 [pH] Normal 5.0 - 8.0 [facility] Comment on above: Performed By: #### M G #### [address] [address] Protein Ql (U) Negative Normal NEGATIVE [facility] Comment on above: Performed By: #### M G #### [address] [place] [address] Specific gravity (U) [Rel density] 1.044 High 1.005 - 1.035 [facility] Comment on above: Performed By: #### M G #### [facility] [address] [place] [address] Urobilinogen (U) [Mass/Vol] 4.0 mg/dL High 0.0 - 1.9 [facility] Comment on above: Result Comment: SOME PIGMENTS AND MEDICATIONS MAY CAUSE A FALSE POSITIVE UROBILINOGEN Performed By: #### M G #### [address] [place] [address] US RIGHT UPPER QUADRANTon US RIGHT UPPER QUADRANT Patient Name: RICHI HU STUDY: US RUQ ABDOMEN; 12/30/2021 2:30 pm INDICATION: RUQ abd pain, . COMPARISON: None. ACCESSION NUMBER(S): [id number] ORDERING CLINICIAN: GEOVANNA ALEGRE TECHNIQUE: Multiple images [...] Electronically signed by: SANFORD MEDINA MD Normal [facility] Ultrasound Right Upper Quadr elder 12-30-2021 Ultrasound Right Upper Quadrant Normal [facility] Gastroenter [facility] [employer] Work Phone: Urinalysison 12-30-2021 Color (U) JAVY See Below [facility]astro[facility] Work Phone: Comment on above: Reference Range: STR AW,YELLOW Glucose Ql (U) Negative NEGATIVE [facility] Work Phone: Ketones Ql (U) Negative NEGATIVE [facility] Work Phone: Leukocyte esterase Test strip Ql (U) Negative NEGATIVE [facility] Work Phone: pH (U) 5.0 [pH] 5.0 - 8.0 [facility] Work Phone: Protein (U) [Mass/Vol] Negative NEGATIVE [facility] Work Phone: RBC (U) [#/Vol] Negative NEGATIVE [facility] Work Phone: Specific gravity (U) [Rel density] 1.044 1 above high threshold See Below [facility] Work Phone: Comment on above: Reference Range: 1.0 05 - 1.035 Urinalysis Negative NEGATIVE [facility] Work Phone: Urinalysis 4.0 mg/dL above high threshold 0.0 - 1.9 [facility] Work Phone: Comment on above: SOME PIGMENTS AND ME DICATIONS MAY CAUSE AFALSE POSITIVE UROBILINOGEN Urinalysis SMALL(1+) Abnormal NEGATIVE [facility] Work Phone: Urinalysis CLEAR CLEAR [facility] Work Phone: Urine blood detectionon 10-3 -2021 RBC Ql (U) Negative Negative [facility] Work Phone: RBC Ql (U) 0 SEEN /hpf 0-5 [facility] Work Phone: Urine clarityon 12-30-2021 Clarity (U) Clear Clear [facility] Work Phone: Urine color determinationon 12-30-2021 Color (U) Yellow Yellow [facility] Work Phone: Urine glucose detectionon Glucose Ql (U) Normal mg/dl Normal [facility] Work Phone: Urine leukocyte esterase det ection by dipstickon 12-30-2021 Leukocyte esterase Test strip Ql (U) 25 /ul Negative [facility] Work Phone: Urine pHon 12-30-2021 pH (U) 7.0 [pH] 5.0 - 8.0 [facility] Work Phone: Urine sediment bacteria coun t by microscopy (number/high power field)on 12-30-2021 Bacteria LM.HPF (Urine sed) [#/Area] RARE /hpf None Seen [facility] Work Phone: Urine specific gravity measu rementon 12-30-2021 Specific gravity (U) [Rel density] 1.010 1.002-1.03 0 [facility] Work Phone: Urobilinogen Auto test strip Ql (U)on 12-30-2021 Urobilinogen Ql (U) 4 mg/dl Normal [facility] Work Phone: Josh 06-18-2020 CNPN Telephone ([facility]) RICHI HU ([id number]) 1955 M Date Time Provider Department 06/18/[address] [facility] During your visit today, we recorded the following information about you: Katlin Sequeira 06/18/2020 10:04 AM Signed Received request for medical records from [facility], Dr. Soham Lamb [address] [place], [place] [address] Ph.: [phone] Sent request to medical records. Sending copy of request to patients chart. Kasey Aguillon Allergies As of Date: 06/18/2020 Noted Allergy [...] Status:Closed by KATLIN SEQUEIRA on 06/18/20 Normal [facility] RF-Lumbar Spine 2 or 3 Views IMPORTon 05-08-2020 RF-Lumbar Spine 2 or 3 Views IMPORT Images were obtained outside of [facility] [id number] Normal [facility] MR-Spine Lumbar W/WO Contras t IMPORTon 05-07-2020 MR-Spine Lumbar W/WO Contrast IMPORT Images were obtained outside of [facility] [id number] Normal [facility] Final Surgical Pathology Rep [facility] 05-01-2020 Final Surgical Pathology Report . Pathology Reports Accession: Collected Date/Time: Received Date/Time: Pathologist: [id number] 04/27/2020 10:45 EST 04/30/2020 08:18 MD ADOLFO MIRANDA Final Surgical Pathology Report DIAGNOSIS: A) SIGMOID COLON, POLYPECTOMY -- TUBULAR ADENOMA. B) SPLENIC FLEXURE OF COLON, POLYPECTOMY -- TUBULAR ADENOMA. COMMENT: [facility] - D# [id number] CLINICAL INFORMATION: Procedure: COLONOSCOPY WITH POLYPECTOMY Preoperative diagnosis: SCREENING Postoperative diagnosis: SAME SPECIMEN: A SIGMOID COLON POLYP B SPLENIC FLEXURE POLYP GROSS DESCRIPTION: A. Received in formalin, labeled with the patients name, Case #[id number], and sigmoid colon polyp are 4 ortega tissue fragments ranging from 0.1 to 0.2 cm. TS -1. B. Received in formalin labeled splenic flexure polyp is 1 ortega-pink polyp measuring 0.3 cm. Excision margin inked black. TS -1. Dictated by WILMAR MATHIS MICROSCOPIC DESCRIPTION: A&B) Slides reviewed. Electronically Signed by Pathology Report verified by [facility] Electronically signed by ADOLFO NIETO MD Sign out Date: 05/01/2020 16:22 Performing Lab: [facility], [address] [place] [address] ([place]) Comment on above: Performed By: #### S PFR #### [place] [address] COVID-19 virus antigen assay SARS-CoV-2 (COVID-19) Ag IA.rapid Ql (Resp) [facility] Work Phone: Vital Signs Date Time Vital Sign Value Performing Clinician Facility 08-16-2024 07:07-0400 Body height 195.[address] Tiarra Bravo MD Work Phone: [facility] 08-16-2024 07:07-0400 Diastolic blood pressure 82 mm[Hg] Dr. Tiarra Bravo MD Work Phone: [facility] 08-16-2024 07:07-0400 Heart rate 68 /min Dr. Tiarra Bravo MD Work Phone: [facility] 08-16-2024 07:07-0400 Respiratory rate 22 /min Dr. Tiarra Bravo MD Work Phone: [facility] [facility] 08-16-2024 07:07-0400 SaO2% (BldA) [Mass fraction] 98 % Dr. Tiarra Bravo MD Work Phone: [facility] 08-16-2024 07:07-0400 Systolic blood pressure 140 mm[Hg] Dr. Tiarra Bravo MD Work Phone: [facility] 08-10-2024 14:05-0400 Body temperature 97.9 [degF] Dr. Tiarra Bravo MD Work Phone: [facility] 08-10-2024 14:05-0400 Diastolic blood pressure 82 mm[Hg] Dr. Tiarra Bravo MD Work Phone: 0(361)085-555738 [place] [address] 08-10-2024 14:05-0400 Heart rate 78 /min Dr. Tiarra Bravo MD Work Phone: 2(132)308-943357 [place] [address] 08-10-2024 14:05-0400 Respiratory rate 18 /min Dr. Tiarra Bravo MD Work Phone: 0(643)215-523957 [place] [address] 08-10-2024 14:05-0400 SaO2% (BldA) [Mass fraction] 100 % Dr. Tiarra Bravo MD Work Phone: 1(719)761-894157 [place] [address] 08-10-2024 14:05-0400 Systolic blood pressure 118 mm[Hg] Dr. Tiarra Bravo MD Work Phone: 7(201)684-520457 [place] [address] 08-08-2024 10:09-0400 Body height 195.[address] Tiarra Bravo MD Work Phone: 4(385)814-770857 [place] [address] 08-08-2024 10:09-0400 Body weight 200.[address] Tiarra Bravo MD Work Phone: 7(569)887-982057 [place] [address] 08-07-2024 13:58-0400 Body mass index (BMI) [Ratio] 52.5 kg/m2 Dr. Tiarra Bravo MD Work Phone: 0(269)457-526838 [place] [address] 08-07-2024 13:25-0400 Body temperature 98.9 [degF] Dr. Tiarra Bravo MD Work Phone: 1(494)937-292938 [place] [address] 08-07-2024 13:25-0400 Diastolic blood pressure 51 mm[Hg] Dr. Tiarra Bravo MD Work Phone: 9(063)767-287757 [place] [address] 08-07-2024 13:25-0400 Heart rate 78 /min Dr. Tiarra Bravo MD Work Phone: 8(186)333-330457 [place] [address] 08-07-2024 13:25-0400 Respiratory rate 13 /min Dr. Tiarra Bravo MD Work Phone: [facility] 08-07-2024 13:25-0400 SaO2% (BldA) [Mass fraction] 98 % Dr. Tiarra Bravo MD Work Phone: [facility] 08-07-2024 13:25-0400 Systolic blood pressure 117 mm[Hg] Dr. Tiarra Bravo MD Work Phone: 5(405)000-491957 [place] [address] 08-07-2024 11:09-0400 Body height 190.[address] Tiarra Bravo MD Work Phone: 3(405)889-448057 [place] [address] 08-07-2024 11:09-0400 Body mass index (BMI) [Ratio] 55 kg/m2 Dr. Tiarra Bravo MD Work Phone: 5(554)883-642357 [place] [address] 08-07-2024 11:09-0400 Body weight 199.[address] Tiarra Bravo MD Work Phone: 9(291)161-000557 [place] [address] 07-19-2024 07:07-0400 Body height 190.[address] Tiarra Bravo MD Work Phone: 9(079)978-952657 [place] [address] 07-19-2024 07:07-0400 Body mass index (BMI) [Ratio] 56.2 kg/m2 Dr. Tiarra Bravo MD Work Phone: 6(877)948-557057 [place] [address] 07-19-2024 07:07-0400 Body weight 204.[address] Tiarra Bravo MD Work Phone: 7(086)490-655957 [place] [address] 07-19-2024 07:07-0400 Diastolic blood pressure 83 mm[Hg] Dr. Tiarra Bravo MD Work Phone: 0(437)075-304557 [place] [address] 07-19-2024 07:07-0400 Heart rate 72 /min Dr. Tiarra Bravo MD Work Phone: 4(669)431-338757 [place] [address] 07-19-2024 07:07-0400 Respiratory rate 22 /min Dr. Tiarra Bravo MD Work Phone: 3(368)221-402057 [place] [address] 07-19-2024 07:07-0400 SaO2% (BldA) [Mass fraction] 96 % Dr. Tiarra Bravo MD Work Phone: [facility] 07-19-2024 07:07-0400 Systolic blood pressure 127 mm[Hg] Dr. Tiarra Bravo MD Work Phone: [facility] 02-09-2023 08:40-0500 Body temperature 97.3 [degF] Dr. Tiarra Bravo Work Phone: [facility] 02-09-2023 08:40-0500 Diastolic blood pressure 79 mm[Hg] Dr. Tiarra Bravo Work Phone: [facility] 02-09-2023 08:40-0500 Heart rate 77 /min Dr. Tiarra Bravo Work Phone: [facility] 02-09-2023 08:40-0500 Respiratory rate 16 /min Dr. Tiarra Bravo Work Phone: [facility] 02-09-2023 08:40-0500 SaO2% (BldA) [Mass fraction] 96 % Dr. Tiarra Bravo Work Phone: [facility] 02-09-2023 08:40-0500 Systolic blood pressure 128 mm[Hg] Dr. Tiarra Bravo Work Phone: [facility] 01-06-2023 14:53-0500 Body height 195.[address] Tiarra Bravo Work Phone: [facility] 01-06-2023 14:53-0500 Body mass index (BMI) [Ratio] 53.1 kg/m2 Dr. Tiarra Bravo Work Phone: [facility] 01-06-2023 14:53-0500 Body weight 203.[address] Tiarra Bravo Work Phone: [facility] 01-06-2023 14:53-0500 Diastolic blood pressure 73 mm[Hg] Dr. Tiarra Bravo Work Phone: [facility] 01-06-2023 14:53-0500 Heart rate 58 /min Dr. Tiarra Bravo Work Phone: [facility] 01-06-2023 14:53-0500 Respiratory rate 22 /min Dr. Tiarra Bravo Work Phone: [facility] 01-06-2023 14:53-0500 SaO2% (BldA) [Mass fraction] 99 % Dr. Tiarra Bravo Work Phone: [facility] 01-06-2023 14:53-0500 Systolic blood pressure 153 mm[Hg] Dr. Tiarra Bravo Work Phone: [facility] 01-14-2022 10:50-0500 Body height 195.[address] Tiarra Bravo Work Phone: [facility] Work Phone: 01-14-2022 10:50-0500 Body mass index (BMI) [Ratio] 53.8 kg/m2 Dr. Tiarra Bravo Work Phone: [facility] Work Phone: 01-14-2022 10:50-0500 Body weight 205.[address] Tiarra Bravo Work Phone: [facility] Work Phone: 01-14-2022 10:50-0500 Diastolic blood pressure 77 mm[Hg] Dr. Tiarra Bravo Work Phone: [facility] Work Phone: 01-14-2022 10:50-0500 Heart rate 64 /min Dr. Tiarra Bravo Work Phone: [facility] Work Phone: 01-14-2022 10:50-0500 Respiratory rate 18 /min Dr. Tiarra Bravo Work Phone: [facility] Work Phone: 01-14-2022 10:50-0500 SaO2% (BldA) [Mass fraction] 96 % Dr. Tiarra Bravo Work Phone: [facility] Work Phone: 01-14-2022 10:50-0500 Systolic blood pressure 130 mm[Hg] Dr. Tiarra Bravo Work Phone: [facility] Work Phone: 01-10-2022 11:15-0500 Body height 193.04 cm Referring Provider [facility] Work Phone: 01-10-2022 11:15-0500 Body mass index (BMI) [Ratio] 26.29 kg/m2 Referring Provider [facility] Work Phone: 01-10-2022 11:15-0500 Body surface area Derived from formula 2.29 m2 Referring Provider [facility] Work Phone: 01-10-2022 11:15-0500 Body weight 97.98 kg Referring Provider [facility] Work Phone: 12-30-2021 08:00-0400 Diastolic blood pressure 79 mm[Hg] [facility] Work Phone: 12-30-2021 08:00-0400 Heart rate 63 /min [facility] Work Phone: 12-30-2021 08:00-0400 Respiratory rate 16 /min [facility] Work Phone: 12-30-2021 08:00-0400 SaO2% (BldA) [Mass fraction] 96 % [facility] Work Phone: 12-30-2021 08:00-0400 Systolic blood pressure 138 mm[Hg] [facility] Work Phone: 12-30-2021 07:01-0400 Body temperature 97.4 [degF] [facility] Work Phone: 12-30-2021 00:04-0400 Body height 195.58 cm [facility] Work Phone: 12-30-2021 00:04-0400 Body mass index (BMI) [Ratio] 65.7 kg/m2 [facility] Work Phone: 12-30-2021 [id number] Body weight 251.7 kg [facility] Work Phone: Encounters Encounter Date Encounter Type Care Provider Facility Start: 09-15-2024 ambulatory Leonor Aldrich Facilit y:[facility] Start: 09-06-2024 ambulatory Taylor Patel KEY WORKER Facili ty:[facility] Start: 08-26-2024 Non-patient / Non-visit Taylor Patel KEY WORKER-C -[facility] Work Phone: Start: 08-26-2024 ambulatory Taylor Patel NP Facili ty:[facility] Start: 08-25-2024 ambulatory Terell Shore Facility:[facility] Start: 08-25-2024 Non-patient / Non-visit Dr. Terell Shore MD -[facility] Start: 08-25-2024 End: 08-25-[address] Tiarra Bravo MD Work Phone: -[facility] Start: 08-25-2024 End: 08-25-2024 Patient encounter procedure Taylor Patel KEY WORKER-C -[facility] Work Phone: Start: 08-25-2024 End: 08-25-2024 ambulatory Taylor Patel NP Facility:[facility] Start: 08-16-2024 End: 08-16-[address] Tiarra Bravo MD Work Phone: [facility] Work Phone: Start: 08-16-2024 End: 08-16-[address] Leonor Aldrich MD -[facility]ovascular Services Work Phone: Start: 08-16-2024 End: 08-16-2024 Patient encounter procedure Taylor Patel KEY WORKER-C -[facility] Work Phone: Start: 08-16-2024 End: 08-16-[address] Tiarra Bravo MD Work Phone: [facility] Work Phone: Start: 08-16-2024 End: 08-16-2024 ambulatory Leonor Aldrich Facility:[facility] Start: 08-10-2024 Non-patient / Non-visit Dr. Seb Cortes [facility] Work Phone: Start: 08-09-2024 Non-patient / Non-visit Dr. Seb Cortes [facility] Work Phone: Start: 08-08-2024 Non-patient / Non-visit Dr. Seb Cortes [facility] Work Phone: Start: 08-07-2024 Non-patient / Non-visit Dr. Seb Cortes [facility] Work Phone: Start: 08-07-2024 ambulatory Chhayaus Gallagherorlando Facility:[facility] Start: 08-07-2024 End: 08-10-2024 Evaluation and management of inpatient Dr. Seb Cortes DO -[facility] Work Phone: Start: 07-19-2024 End: 07-19-2024 Patient encounter procedure Taylor Patel NP-C -[facility] Work Phone: Start: 07-19-2024 End: 07-19-[address] Tiarra Bravo MD Work Phone: [facility] Work Phone: Start: 04-12-2024 End: 04-12-[address] Demetria Varela MD -Laboratory Work Phone: Start: 04-12-2024 End: 04-12-2024 ambulatory Demetria Varela Facility:[facility] Start: 02-22-2024 End: 02-22-2024 ambulatory Tiarra Bravo Facility:[facility] Start: 02-15-2024 ambulatory Bob Gibson Facility:[facility] Start: 02-15-2024 End: 02-15-2024 ambulatory Terell Shore Facility:[facility] Start: 02-08-2024 End: 02-08-2024 ambulatory Susie MUSA Facility:[facility] Start: 01-25-2024 End: 01-25-2024 ambulatory Tiarra Bravo Facility:[facility] Start: 12-31-2023 End: 12-31-2023 ambulatory Demetria Varela Facility:[facility] Start: 12-14-2023 End: 12-14-2023 ambulatory Tiarra Bravo Facility:[facility] Start: 04-01-2023 End: 04-01-[address] Tiarra Bravo Work Phone: [facility] Work Phone: Start: 04-01-2023 End: 04-01-[address] Tiarra Bravo Work Phone: [facility] Work Phone: Start: 02-13-2023 End: 02-13-[address] Tiarra Bravo Work Phone: [facility] Work Phone: Start: 02-13-2023 End: 02-13-[address] [facility] Bravo [facility] Start: 02-09-2023 End: 02-09-[address] Tiarra Bravo Work Phone: [facility] Work Phone: Start: 02-04-2023 Non-patient / Non-visit Dr. Tiarra Bravo Work Phone: [facility] Start: 02-04-2023 End: 02-04-[address] Tiarra Bravo Work Phone: [facility] Work Phone: Start: 02-04-2023 End: 02-04-[address] [facility] Work [facility]: Start: 01-20-2023 Non-patient / Non-visit Dr. Tiarra Bravo Work Phone: [facility] Work Phone: Start: 01-20-2023 End: 01-20-[address] Tiarra Bravo Work Phone: [facility] Work Phone: Start: 01-20-2023 End: 01-20-[address] [facility]iar[facility] Bravo [facility] Work [facility]: Start: 01-15-2023 End: 01-15-[address] Tiarra Bravo Work Phone: [facility] Work Phone: Start: 01-15-2023 End: 01-15-[address] [facility]iarra Bravo [facility]: Start: 01-06-2023 End: 01-06-[address] Tiarra Bravo Work Phone: [facility] Work Phone: Start: 01-06-2023 End: 01-06-[address] Tiarra Bravo Work Phone: [facility] Work Phone: Start: 12-08-2022 End: 12-08-2022 ambulatory [facility] Work Phone: Start: 12-08-2022 End: 12-08-2022 [facility] Start: 06-19-2022 End: 06-19-2022 ambulatory [facility] Work Phone: Start: 06-19-2022 End: 06-19-2022 [facility] Start: 04-13-2022 Message Tiarra Bravo Work Phone: [facility] Work Phone: Start: 04-02-2022 End: 04-02-[address] Tiarra Bravo Facility:[id number] Start: 02-10-2022 End: 02-10-[address] Tiarra Bravo Work Phone: [facility] Work Phone: Start: 02-10-2022 End: 02-10-[address] Tiarra Bravo Work Phone: [facility] Start: 01-14-2022 End: 01-14-[address] Tiarra Bravo Work Phone: [facility] Start: 01-10-2022 AUDIT Referring Prov ider Unknown [facility] Work Phone: Start: 01-04-2022 Message Referring Prov ider [facility] Work Phone: Start: 12-30-2021 End: 01-03-2022 Evaluation and management of inpatient PCP UNKNOWN Facility:[id number] Start: 12-30-2021 End: 12-30-2021 Emergency department patient visit [facility] Start: 10-15-2021 ambulatory EMMANUEL COREA Facility: [facility] Procedures Date Procedure Procedure Detail Performing Clinician Start: 08-10-[address] Tiarra Bravo MD Work Phone: Start: 08-07-[address] Tiarra farley MD Work Phone: Start: 08-07-2024 SARS-CoV-2, Influenz a & RSV (PCR) Dr. Tiarra Bravo MD Work Phone: Start: 08-07-2024 Plain chest X-ray Dr. Lalo Bravo MD Work Phone: Start: 08-07-2024 CT of head without contrast Dr. Tiarra Bravo MD Work Phone: Start: 08-07-[address] Tiarra Bravo MD Work Phone: Start: 07-19-2024 Evaluation of diagno stic study results Dr. Tiarra Bravo MD Work Phone: Start: 04-12-2024 Measurement of 3,4-methylenedioxymethamph etamine in [...] Treatment Date Care Activity Detail Author Start: 08-16-2024 Evaluation of diagnostic study results [facility] Start: 08-10-2024 Patient discharge [facility] Start: 08-07-2024 Following clinical pathway protocol [facility] Start: 08-07-2024 Bacteria identified in Blood by Culture Blood Culture [facility] Start: 08-07-2024 Blood culture Blood Culture [facility] Start: 08-07-2024 Ambulation without limitation [facility] Start: 08-07-2024 Assessment of risk of venous thromboembolism [facility] Start: 08-07-2024 Catheterization of vein [facility] Start: 08-07-2024 Insertion of catheter into peripheral vein [facility] Start: 08-07-2024 Providing care according to standard [facility] Start: 08-07-2024 End: 08-07-2024 [facility] Start: 08-07-2024 Verification routine [facility] Start: 08-07-2024 Admission procedure [facility] Start: 08-07-2024 Hospital admission, emergency, from emergency room, medical nature [facility] Start: 08-07-2024 End: 08-07-2024 [facility] Start: 07-19-2024 Patient referral [facility] Work Phone: Start: 07-19-2024 Evaluation of diagnostic study results 12 Lead EKG performed by [facility] Start: 04-01-2023 Procedure [facility] Start: 06-19-2022 Procedure [facility] Start: 04-02-2022 ERCPANS, Provider: Argelia Abad, Status: Pen, Time: 7:30 AM [facility], Provider: Argelia Abad, Status: Pen, Time: 7:30 AM [facility] Work Phone: 24 Hour ECG [facility] Basic metabolic 2008 panel with ionized calcium - Serum or Plasma [facility] CBC W Auto Different ial panel - Blood [facility] Patient referral [facility] Work Phone: Troponin T.cardiac [Mass/volume] in Serum or Plasma by High sensitivity method [facility] Troponin T.cardiac [Mass/volume] in Serum or Plasma by High sensitivity method [facility] Immunizations Immunization Date Immunization Notes Care Provider Fa cility 01-01-2020 Influenza virus vaccine [facility] 01-09-2014 Influenza virus vaccine [facility] Payers Date Payer Category Payer Medicare [id number] 2024 Unknown [id number] 2024 Unknown [id number] 2023 Self-pay [id number] 2015 Unknown [id number] 2015 Unknown [id number] 1955 Unknown [id number] 2.16. [id number] 1955 Unknown [id number] 2.16. 840.1.697897.3.579.2.594 1955 Unknown [id number] 2.16.8 40.1.538334.3.579.2.1069 1955 Unknown [id number] 2.16.8 40.1.548945.3.579.2.1069 Unknown ANTHEM Unknown [id number] 2.16.8 40.1.808022.3.579.2.462 Unknown [id number] 2.16.8 40.1.890554.3.579.2.462 Unknown [id number] 2.16.8 40.1.748848.3.579.2.462 Unknown [id number] 2.16.8 40.1.980763.3.579.2.462 Unknown [id number] 2.16.8 40.1.983549.3.579.2.462 Unknown [id number] 2.16.8 40.1.415674.3.579.2.462 Unknown [id number] 2.16.8 40.1.687396.3.579.2.462 Unknown [id number] 2.16.8 40.1.173885.3.579.2.462 Unknown [id number] 2.16.8 40.1.353762.3.579.2.462 Unknown [id number] 2.16.8 40.1.296930.3.579.2.462 Unknown [id number] 2.16.8 40.1.254362.3.579.2.462 Unknown [id number] 2.16.8 40.1.015698.3.579.2.462 Unknown [id number] 2.16.8 40.1.024088.3.579.2.462 Unknown [id number] 2.16.8 40.1.585391.3.579.2.462 Unknown [id number] 2.16.8 40.1.893350.3.579.2.462 Unknown [id number] 2.16.8 40.1.615229.3.579.2.462 Unknown [id number] 2.16.8 40.1.821178.3.579.2.462 Unknown [id number] 2.16.8 40.1.051110.3.579.2.462 Unknown [id number] 2.16.8 40.1.090587.3.579.2.462 Unknown [id number] 2.16.8 40.1.135860.3.579.2.462 Unknown [id number] 2.16.8 40.1.034492.3.579.2.462 Unknown [id number] 2.16.8 40.1.909876.3.579.2.462 Unknown [id number] 2.16.8 40.1.936959.3.579.2.462 Social History Date Type Detail Facility Start: 12-30-2021 End: 02-09-2023 Tobacco smoking status NHIS Unknown if ever smoked [facility] Start: 05-06-2020 None [facility] Start: 05-06-2020 Spouse/ Signif icant Other [facility] Start: 07-23-2020 Non-smoker [facility] Start: 1955 Sex Assigned At Male [facility] Start: 02-15-2024 End: 08-07-2024 Tobacco smoking status NHIS Never smoked tobacco (finding) [facility] Goals Date Patient Goal Desired Activity /State Functional Status Date Assessment Result Facility 08-10-2024 Functional status Chair [facility] Work Phone: Mental Status Date Assessment Result Facility 08-10-2024 Cognitive function Voice/Name [facility] Work Phone: Clinical Notes 05-17-2020 to 08-10-2024 Note Date & Type Note Facility 08-10-2024 Discharge summary Note Date/Time August 10, 2024 12:06pm [facility] Medical Records Department [address] [place] [address] Instructions for Home/Discharge Instructions 08/10/24 1150 MR#: [id number] Acct: [id number] Name: RICHI HU Rep #:[id number] : 1955 69 From: Seb Cortes DO PCP: Dr. Omid Colindres MD Status:ADM I N Discharge Instructions Diet Discharge Diet: No restrictions DC O2, CPAP, BIPAP needs Home O2 Discharge instructions: No Dressing / Incision Discharge Activity: Return to Normal Activity Weight Bearing Status: Full weight bearing Follow Up Care Test Results: Test results from this visit will be discussed in further detail at your follow-up appointment, if applicable. Discharge Plan Admission Admit Date/Time: 08/07/24 12:56 Primary Reason for Your Visit: anasarca celluitis of right leg Attending Provider: Seb Cortes Primary Care Provider: Omid Colindres Discharge Orders/Prescriptions Prescriptions: New furosemide [Lasix] 40 mg tablet 60 mg PO BID Qty: 90 1RF potassium chloride [Klor-Con 10] 10 mEq tablet extended release 20 meq PO DAILY Qty: 60 0RF cefdinir 300 mg capsule 300 mg PO BID Qty: 14 0RF Rx Instructions: start today Continued multivitamin [Multiple Vitamins] Tablet 1 tab PO DAILY cholecalciferol (vitamin D3) 25 mcg (1,000 unit) capsule 25 mcg PO DAILY tramadol 50 mg tablet 50 mg PO ONCE PRN (Reason: pain) Rx Instructions: Takes 4 times daily as needed vitamin B complex Tablet 1 tab PO DAILY latanoprost 0.005 % drops 1 drp ophthalmic (eye) DAILY Xarelto 20 mg tablet 20 mg PO .COMPLEX Qty: 90 3RF Rx Instructions: 20 mg orally every evening with food: Fax to [facility]: losartan 50 mg tablet 50 mg PO DAILY Qty: 90 3RF magnesium oxide 400 mg (241.3 mg magnesium) tablet 400 mg PO BID Qty: 180 3RF sotalol 120 mg tablet 120 mg PO BID Qty: 180 3RF spironolactone 25 mg tablet 25 mg PO DAILY Qty: 90 3RF Discontinued furosemide 40 mg tablet 40 mg PO DAILY Qty: 90 3RF Referrals / Follow Up: Terell Shore MD [Med Staff - Active Staff] - See Referral Note (At scheduled appointment time) Omid Colindres MD [Primary Care Provider] - Madison Muse [Emergency Nurse] - Disposition Disposition (needs filled in before D/C Order can be placed): Home, Self Care 08/10/24 1206<Electronically signed by Seb Cortes DO>Seb Cortes DO CC: Dr. Omid Colindres MD ~ Signed [facility] Work Phone: 1(744) 767-730206-11-2025 Discharge summary [facility] Medical Records Department [address] [place] [address] Instructions for Home/Discharge Instructions 08/10/24 1150 MR#: [id number] Acct: [id number] Name: RICHI HU Rep #:[id number] : 1955 69 From: Seb Cortes DO PCP: Dr. Omid Colindres MD Status:ADM I N Discharge Instructions Diet Discharge Diet: No restrictions DC O2, CPAP, BIPAP needs Home O2 Discharge instructions: No Dressing / Incision Discharge Activity: Return to Normal Activity Weight Bearing Status: Full weight bearing Follow Up Care Test Results: Test results from this visit will be discussed in further detail at your follow- up appointment, if applicable. Discharge Plan Admission Admit Date/Time: 08/07/24 12:56 Primary Reason for Your Visit: anasarca celluitis of right leg Attending Provider: Seb Cortes Primary Care Provider: Omid Colindres Discharge Orders/Prescriptions Prescriptions: New furosemide [Lasix] 40 mg tablet 60 mg PO BID Qty: 90 1RF potassium chloride [Klor-Con 10] 10 mEq tablet extended release 20 meq PO DAILY Qty: 60 0RF cefdinir 300 mg capsule 300 mg PO BID Qty: 14 0RF Rx Instructions: start today Continued multivitamin [Multiple Vitamins] Tablet 1 tab PO DAILY cholecalciferol (vitamin D3) 25 mcg (1,000 unit) capsule 25 mcg PO DAILY tramadol 50 mg tablet 50 mg PO ONCE PRN (Reason: pain) Rx Instructions: Takes 4 times daily as needed vitamin B complex Tablet 1 tab PO DAILY latanoprost 0.005 % drops 1 drp ophthalmic (eye) DAILY Xarelto 20 mg tablet 20 mg PO .COMPLEX Qty: 90 3RF Rx Instructions: 20 mg orally every evening with food: Fax to [facility]: losartan 50 mg tablet 50 mg PO DAILY Qty: 90 3RF magnesium oxide 400 mg (241.3 mg magnesium) tablet 400 mg PO BID Qty: 180 3RF sotalol 120 mg tablet 120 mg PO BID Qty: 180 3RF spironolactone 25 mg tablet 25 mg PO DAILY Qty: 90 3RF Discontinued furosemide 40 mg tablet 40 mg PO DAILY Qty: 90 3RF Referrals / Follow Up: Terell Shore MD [Med Staff - Active Staff] - See Referral Note (At scheduled appointment time) Omid Colindres MD [Primary Care Provider] - Madison Muse [Emergency Nurse] - Disposition Disposition (needs filled in before D/C Order can be placed): Home, Self Care 08/10/24 Ambika6Seb Cortes DO CC: Dr. Omid Colindres MD ~ Signed [facility]06-11-2025 [facility] Medical Records Department [address] [place] [id number] Discharge Summary 08/10/24 1206 MR#: [id number] Acct: [id number] Name: RICHI HU Rep #: [id number] : 1955 69 From: Seb Cortes DO PCP: Dr. Omid Colindres MD Status:DIS IN Location: [facility] HI601-4 Providers Date of Admission: 08/07/24 Date of Discharge: 08/10/24 Primary Care Physician: Dr. Omid Colindres MD Reason For Visit: CELLULITIS Diagnosis Discharge Diagnosis (1) Cellulitis of leg, right: Status: Acute Code(s): L03.115 - Cellulitis of right lower limb (2) Exertional dyspnea: Status: Acute Code(s): R06.09 - Other forms of dyspnea Plan 1. Right leg cellulitis-patient will continue IV clindamycin, he will be transition to Omnicef as an outpatient #2 exertional dyspnea-probably due to anasarca, patient will continue IV Lasix with continuous drip #3 atrial fibrillation-patient is on anticoagulation and sotalol #4 class III obesity-complicates care, management, recovery, prognosis #5 anasarca-patient will be placed on a Lasix drip Total clinical time spent by myself addressing the patient's medical issues, reviewing all of his data, and collaborating with patient's care team: 35 minutes Medications at Discharge Home Medications cholecalciferol (vitamin D3) 25 mcg (1,000 unit) capsule 25 mcg PO DAILY vitamin 05/26/21 multivitamin (Multiple Vitamins tablet) 1 tab PO DAILY vitamin 07/25/20 latanoprost 0.005 % eye drops 1 drp ophthalmic (eye) DAILY glaucoma 12/02/20 tramadol 50 mg tablet 50 mg PO ONCE PRN pain 07/15/22 vitamin B complex 1 tab PO DAILY vitamin 07/09/23 rivaroxaban 20 mg tablet (Xarelto) 20 mg PO .COMPLEX #90 tabs 07/27/24 losartan 50 mg tablet 50 mg PO DAILY #90 tabs 07/28/24 magnesium oxide 400 mg (241.3 mg magnesium) tablet 400 mg PO BID #180 tabs 07/28/24 sotalol 120 mg tablet 120 mg PO BID #180 tabs 07/28/24 spironolactone 25 mg tablet 25 mg PO DAILY #90 tabs 07/28/24 cefdinir 300 mg capsule 300 mg PO BID #14 caps 08/10/24 furosemide 40 mg tablet (Lasix) 60 mg (1.5 x 40 mg) PO BID #90 tabs 08/10/24 potassium chloride 10 mEq tablet,extended release (Klor-Con) 20 meq (2 x 10 mEq) PO DAILY #60 tabs 08/10/24 Hospital Course Operations None Procedures None Summary of Care Provided Minutes Spent on Discharge: 32 Hospital Course: This 69-year-old white male was seen in the emergency room at [facility] with chief complaint of shortness of breath and redness of his skin over the right lateral thigh area. Labs showed a slightly elevated white blood cell count at 11.8, chemistry profile was unremarkable. Examination of the patient's lower legs revealed marked edema, there was redness over the patient's right lateral thigh area on the right extending to the area just below the right knee. Patient was admitted to [place] [address] and placed on IV Lasix for his anasarca and IV vancomycin. Over the next several days, patient's leg redness improved but he continued to have problems with peripheral edema below the knees. On 08/10/2024, it was decided he would be discharged home on an increased dose of Lasix, I called his physician practice market manager office to schedule a follow-up appointment for him. On 08/10/2024, patient was seen and examined:alert, oriented x3 and no apparent distress Constitutional Narrative: Patient has class III obesity General Appearance: cooperative, well kempt and well developed Orientation / Consciousness: awake, oriented to person, oriented to place and oriented to time HEENT normocephalic, head/scalp atraumatic, hearing grossly normal bilaterally and moist oral mucous membranes Eyes PERRL, EOMs intact bilaterally and conjunctivae normal Neck supple, no JVD, thyroid normal and no carotid bruits General: trachea midline Resp normal respiratory effort, no retractions and clear to auscultation bilaterally Auscultation: Negative for rales, rhonchi or wheezes Cardio no murmurs, no rub and no gallops Cardio Narrative: Heart rate and rhythm is irregular GI normal to inspection, nondistended, normoactive bowel sounds, soft to palpation, non-tender and non- distended Extremity Extremity Narrative: Generalized lower leg edema is noted bilaterally Skin Skin Narrative: Patient has bilateral lower leg skin changes/lymphedema, there is redness noted of the right lateral thigh extending into the proximal right lower leg, this area is tender to palpation and warm to the touch Neuro oriented x3, CN's II-XII intact bilaterally, moves all extremities, no focal motor deficits and no sensory deficits noted Sensorium / Orientation: awake and alert Speech: speech normal Psych affect normal Patient was discharged in stable condition on 08/10/2024. Weight / BMI Weight Weight: 200.941 kg Body Mass Index (BMI) 52.5 ABG / (more content not included)...[facility]06-10-2025 Progress note Author Seb Cortes [facility] Note Date/Time August 09, 2024 7:11 pm [facility] Medical Records Department [address] [place] [address] Progress Note - Hospitalist 08/09/24 1909 MR#: [id number] Acct: [id number] Name: RICHI HU Rep #:[id number] : 1955 69 From: Seb Cortes DO PCP: Dr. Omid Colindres MD Status:ADM I N Location: [place] [address] Reason for Visit Reason for Visit: Diagnoses Cellulitis of right lower limb (08/07/24) Other forms of dyspnea (08/07/24) Subjective Subjective Patient was seen and examined today, I gave him a dose of cefdinir today and he had no reaction to the medication. Patient's right leg redness appears to be improved but he still having quite a bit of leg edema bilaterally. I have decided to place him on a continuous Lasix drip today. I talked briefly with him in the presence of his daughter who was there visiting him today. Objective Data Objective Data Vital Signs: Vital Signs Temp Pulse Resp BP Pulse Ox O2 Del Method 97.8 F 70 16 120/64 97 Room Air 08/09/24 14:05 08/09/24 18:36 08/09/24 14:05 08/09/24 18:36 08/09/24 18:36 08/09/24 18:36 Oxygen Delivery Method Room Air Weight: 200.941 kg Body Mass Index (BMI) 52.5 Intake & Output: Intake and Output for Last 24 Hours 08/07/24 08/08/24 08/09/24 23:59 23:59 23:59 Intake Total 550 / 1050 1601.5 / 1601.5 1050 / 1050 Output Total 100 / 100 Balance 550 / 1050 1601.5 / 1601.5 950 / 950 Lab / Micro Data 08/08/24 06:08 08/09/24 06:50 Labs: Laboratory Results - last 24 hr 08/09/24 06:50: Sodium 136, Potassium 3.6, Chloride 100, Carbon Dioxide 25.2, Anion Gap 11, BUN 17, Creatinine 0.91, Estim Creat Clear Calc 149.12, Est GFR (MDRD) Non-Af 92, BUN/Creatinine Ratio 18.4, Glucose 111 H, Calcium 8.6 Micro: Microbiology 08/07/24 11:54 Blood Culture (Wb) - Left Forearm Blood Culture - Preliminary No growth in 48 hours. 08/07/24 12:03 Blood Culture (Wb) - Left Forearm Blood Culture - Preliminary No growth in 48 hours. 08/07/24 11:57 Mucosa - Nose SARS-CoV-2, Influenza & RSV (PCR) - Final Physical Exam Narrative alert, oriented x3 and no apparent distress Constitutional Narrative: Patient has class III obesity General Appearance: cooperative, well kempt and well developed Orientation / Consciousness: awake, oriented to person, oriented to place and oriented to time HEENT normocephalic, head/scalp atraumatic, hearing grossly normal bilaterally and moist oral mucous membranes Eyes PERRL, EOMs intact bilaterally and conjunctivae normal Neck supple, no JVD, thyroid normal and no carotid bruits General: trachea midline Resp normal respiratory effort, no retractions and clear to auscultation bilaterally Auscultation: Negative for rales, rhonchi or wheezes Cardio no murmurs, no rub and no gallops Cardio Narrative: Heart rate and rhythm is irregular GI normal to inspection, nondistended, normoactive bowel sounds, soft to palpation,non-tender and non-distended Extremity Extremity Narrative: Generalized lower leg edema is noted bilaterally Skin Skin Narrative: Patient has bilateral lower leg skin changes/lymphedema, there is redness noted of the right lateral thigh extending into the proximal right lower leg, this area is tender to palpation and warm to the touch Neuro oriented x3, CN's II-XII intact bilaterally, moves all extremities, no focal motor deficits and no sensory deficits noted Sensorium / Orientation: awake and alert Speech: speech normal Psych affect normal Assessment & Plan Assessment/Plan (1) Cellulitis of leg, right: (2) Exertional dyspnea: PLAN: Plan 1. Right leg cellulitis-patient will continue IV clindamycin, he will be transition to Omnicef as an outpatient #2 exertional dyspnea-probably due to anasarca, patient will continue IV Lasix with continuous drip #3 atrial fibrillation-patient is on anticoagulation and sotalol #4 class III obesity-complicates care, management, recovery, prognosis #5 anasarca-patient will be placed on a Lasix drip Total clinical time spent by myself addressing the patient's medical issues, reviewing all of his data, and collaborating with patient's care team: 35 minutes Charges/Coding Visit Charges Inpatient E&M: 24566 Subs Hosp L2 08/09/241910 <Electronically signed by Seb Cortes DO> Cosigner Signature (if applicable): CC: ~ Signed [facility] Work Phone: 1(872) 805-199706-10-2025 Progress note [facility] Medical Records Department [address] [place] [address] Progress Note - Hospitalist 08/09/241908 MR#: [id number] Acct: [id number] Name: RICHI HU Rep #:[id number] : 1955 69 From: Seb Cortes DO PCP: Dr. Omid Colindres MD Status:ADM I N Location: [facility] HS364-4 Reason for Visit Reason for Visit: Diagnoses Cellulitis of right lower limb (08/07/24) Other forms of dyspnea (08/07/24) Subjective Subjective Patient was seen and examined today, I gave him a dose of cefdinir today and he had no reaction to the medication. Patient's right leg redness appears to be improved but he still having quite a bit of leg edema bilaterally. I have decided to place him on a continuous Lasix drip today. I talked briefly with him in the presence of his daughter who was there visiting him today. Objective Data Objective Data Vital Signs: Vital Signs Temp Pulse Resp BP Pulse Ox O2 Del Method 97.8 F 70 16 120/64 97 Room Air 08/09/24 14:05 08/09/24 18:36 08/09/24 14:05 08/09/24 18:36 08/09/24 18:36 08/09/24 18:36 Oxygen Delivery Method Room Air Weight: 200.941 kg Body Mass Index (BMI) 52.5 Intake & Output: Intake and Output for Last 24 Hours 08/07/24 08/08/24 08/09/24 23:59 23:59 23:59 Intake Total 550 / 1050 1601.5 / 1601.5 1050 / 1050 Output Total 100 / 100 Balance 550 / 1050 1601.5 / 1601.5 950 / 950 Lab / Micro Data 08/08/24 06:08 08/09/24 06:50 Labs: Laboratory Results - last 24 hr 08/09/24 06:50: Sodium 136, Potassium 3.6, Chloride 100, Carbon Dioxide 25.2, Anion Gap 11, BUN 17,Creatinine 0.91, Estim Creat Clear Calc 149.12, Est GFR (MDRD) Non-Af 92, BUN/Creatinine Ratio 18.4, Glucose 111 H, Calcium 8.6 Micro: Microbiology 08/07/24 11:54 Blood Culture (Wb) - Left Forearm Blood Culture - Preliminary No growth in 48 hours. 08/07/24 12:03 Blood Culture (Wb) - Left Forearm Blood Culture - Preliminary No growth in 48 hours. 08/07/24 11:57 Mucosa - Nose SARS-CoV-2, Influenza & RSV (PCR) - Final Physical Exam Narrative alert, oriented x3 and no apparent distress Constitutional Narrative: Patient has class III obesity General Appearance: cooperative, well kempt and well developed Orientation / Consciousness: awake, oriented to person, oriented to place and oriented to time HEENT normocephalic, head/scalp atraumatic, hearing grossly normal bilaterally and moist oral mucous membranes Eyes PERRL, EOMs intact bilaterally and conjunctivae normal Neck supple, no JVD, thyroid normal and no carotid bruits General: trachea midline Resp normal respiratory effort, no retractions and clear to auscultation bilaterally Auscultation: Negative for rales, rhonchi or wheezes Cardio no murmurs, no rub and no gallops Cardio Narrative: Heart rate and rhythm is irregular GI normal to inspection, nondistended, normoactive bowel sounds, soft to palpation,non-tender and non-distended Extremity Extremity Narrative: Generalized lower leg edema is noted bilaterally Skin Skin Narrative: Patient has bilateral lower leg skin changes/lymphedema, there is redness noted of the right lateral thigh extending into the proximal right lower leg, this area is tender to palpation and warm to the touch Neuro oriented x3, CN's II-XII intact bilaterally, moves all extremities, no focal motor deficits and no sensory deficits noted Sensorium / Orientation: awake and alert Speech: speech normal Psych affect normal Assessment & Plan Assessment/Plan (1) Cellulitis of leg, right: (2) Exertional dyspnea: PLAN: Plan 1. Right leg cellulitis-patient will continue IV clindamycin, he will be transition to Omnicef as an outpatient #2 exertional dyspnea-probably due to anasarca, patient will continue IV Lasix with continuous drip #3 atrial fibrillation-patient is on anticoagulation and sotalol #4 class III obesity-complicates care, management, recovery, prognosis #5 anasarca-patient will be placed on a Lasix drip Total clinical time spent by myself addressing the patient's medical issues, reviewing all of his data, and collaborating with patient's care team: 35 minutes Charges/Coding Visit Charges Inpatient E&M: 62267 Subs Hosp L2 08/09/24 191 Cosigner Signature (if applicable): CC: ~ Signed [facility]06-09-2025 Progress note Author Seb Cortes [facility] Note Date/Time August 08, 2024 7:31p m [facility] Medical Records Department [address] [place] [address] Progress Note - Hospitalist 08/08/241927 MR#: [id number] Acct: [id number] Name: RICHI HU Rep #:[id number] : 1955 69 From: Seb Cortes DO PCP: Dr. Omid Colindres MD Status:ADM I N Location: [place] [address] Reason for Visit Reason for Visit: Diagnoses Other forms of dyspnea (08/07/24) Subjective Subjective Patient was seen and examined today, he still has tenderness and redness over his right thigh area and right proximal lower leg. Patient states that he is urinating frequently, he continues to have edema however in the lower extremities. Objective Data Objective Data Vital Signs: Vital Signs Temp Pulse Resp BP Pulse Ox O2 Del Method 98.4 F 64 17 117/80 95 Room Air 08/08/24 14:32 08/08/24 14:32 08/08/24 14:32 08/08/24 14:32 08/08/24 14:32 08/08/24 14:32 Oxygen Delivery Method Room Air Weight: 200.941 kg Body Mass Index (BMI) 52.5 Intake & Output: Intake and Output for Last 24 Hours 08/06/24 08/07/24 08/08/24 23:59 23:59 23:59 Intake Total 550 / 1050 1051.5 / 1051.5 Balance 550 / 1050 1051.5 / 1051.5 Lab / Micro Data 08/08/24 06:08 08/08/24 06:08 Labs: Laboratory Results - last 24 hr 08/08/24 06:08: WBC 10.5, RBC 4.12 L, Hgb 13.1, Hct 38.4 L, MCV 93.2, MCH 31.8, MCHC 34.1, RDW Std Deviation 44.9 H, RDW Coeff of [place] 13.2, Plt Count 138 L, MPV9.3, Immature Gran % (Auto) 0.800, Neut % (Auto) 68.4, Lymph % (Auto) 18.1 L, [place] % (Auto) 11.4 H, Eos % (Auto) 0.8, Baso % (Auto) 0.5, Absolute Neuts (auto) 7.2, Absolute Lymphs (auto) 1.91, Nucleated RBC % 0, Sodium 138, Potassium 3.4, Chloride 100, Carbon Dioxide 27.3, Anion Gap 11, BUN 15, Creatinine 0.94, Estim Creat Clear Calc 144.36, Est GFR (MDRD) Non-Af 89, BUN/Creatinine Ratio 16.3, Glucose 116 H, Calcium 8.8 Micro: Microbiology 08/07/24 11:57 Mucosa - Nose SARS-CoV-2, Influenza & RSV (PCR) - Final Physical Exam Narrative alert, oriented x3 and no apparent distress Constitutional Narrative: Patient has class III obesity General Appearance: cooperative, well kempt and well developed Orientation / Consciousness: awake, oriented to person, oriented to place and oriented to time HEENT normocephalic, head/scalp atraumatic, hearing grossly normal bilaterally and moist oral mucous membranes Eyes PERRL, EOMs intact bilaterally and conjunctivae normal Neck supple, no JVD, thyroid normal and no carotid bruits General: trachea midline Resp normal respiratory effort, no retractions and clear to auscultation bilaterally Auscultation: Negative for rales, rhonchi or wheezes Cardio no murmurs, no rub and no gallops Cardio Narrative: Heart rate and rhythm is irregular GI normal to inspection, nondistended, normoactive bowel sounds, soft to palpation,non-tender and non-distended Extremity Extremity Narrative: Generalized lower leg edema is noted bilaterally Skin Skin Narrative: Patient has bilateral lower leg skin changes/lymphedema, there is redness noted of the right lateral thigh extending into the proximal right lower leg, this area is tender to palpation and warm to the touch Neuro oriented x3, CN's II-XII intact bilaterally, moves all extremities, no focal motor deficits and no sensory deficits noted Sensorium / Orientation: awake and alert Speech: speech normal Psych affect normal Assessment & Plan Assessment/Plan (1) Cellulitis of leg, right: (2) Exertional dyspnea: PLAN: Plan 1. Right leg cellulitis-patient will continue IV clindamycin, he will be transition to Omnicef as an outpatient #2 exertional dyspnea-probably due to anasarca, patient will continue IV Lasix #3 atrial fibrillation-patient is on anticoagulation and sotalol #4 class III obesity-complicates care, management, recovery, prognosis Total clinical time spent by myself addressing the patient's medical issues, reviewing all of his data, and collaborating with patient's care team: 35 minutes Charges/Coding Visit Charges Inpatient E&M: 15690 Subs Hosp L2 08/08/241930 <Electronically signed by Seb Cortes DO> Cosigner Signature (if applicable): CC: ~ Signed [facility] Work Phone: 1(828) 847-138306-09-2025 Progress note [facility] Medical Records Department [address] [place] [address] Progress Note - Hospitalist 08/08/241927 MR#: [id number] Acct: [id number] Name: RICHI HU Rep #:[id number] : 1955 69 From: Seb Cortes DO PCP: Dr. Omid Colindres MD Status:ADM I N Location: [facility] [id number] Reason for Visit Reason for Visit: Diagnoses Other forms of dyspnea (08/07/24) Subjective Subjective Patient was seen and examined today, he still has tenderness and redness over his right thigh area and right proximal lower leg. Patient states that he is urinating frequently, he continues to have edema however in the lower extremities. Objective Data Objective Data Vital Signs: Vital Signs Temp Pulse Resp BP Pulse Ox O2 Del Method 98.4 F 64 17 117/80 95 Room Air 08/08/24 14:32 08/08/24 14:32 08/08/24 14:32 08/08/24 14:32 08/08/24 14:32 08/08/24 14:32 Oxygen Delivery Method Room Air Weight: 200.941 kg Body Mass Index (BMI) 52.5 Intake & Output: Intake and Output for Last 24 Hours 08/06/24 08/07/24 08/08/24 23:59 23:59 23:59 Intake Total 550 / 1050 1051.5 / 1051.5 Balance 550 / 1050 1051.5 / 1051.5 Lab / Micro Data 08/08/24 06:08 08/08/24 06:08 Labs: Laboratory Results - last 24 hr 08/08/24 06:08: WBC 10.5, RBC 4.12 L, Hgb 13.1, Hct 38.4 L, MCV 93.2, MCH 31.8, MCHC 34.1, RDW Std Deviation 44.9 H, RDW Coeff of [place] 13.2, Plt Count 138 L, MPV9.3, Immature Gran % (Auto) 0.800, Neut% (Auto) 68.4, Lymph % (Auto) 18.1 L, [place] % (Auto) 11.4 H, Eos % (Auto) 0.8, Baso % (Auto) 0.5, Absolute Neuts (auto) 7.2, Absolute Lymphs (auto) 1.91, Nucleated RBC % 0, Sodium 138, Potassium 3.4, Chloride 100, Carbon Dioxide 27.3, Anion Gap 11, BUN 15, Creatinine 0.94, Estim Creat Clear Calc 144.36, Est GFR (MDRD) Non-Af 89, BUN/Creatinine Ratio 16.3, Glucose 116 H, Calcium 8.8 Micro: Microbiology 08/07/24 11:57 Mucosa - Nose SARS-CoV-2, Influenza & RSV (PCR) - Final Physical Exam Narrative alert, oriented x3 and no apparent distress Constitutional Narrative: Patient has class III obesity General Appearance: cooperative, well kempt and well developed Orientation / Consciousness: awake, oriented to person, oriented to place and oriented to time HEENT normocephalic, head/scalp atraumatic, hearing grossly normal bilaterally and moist oral mucous membranes Eyes PERRL, EOMs intact bilaterally and conjunctivae normal Neck supple, no JVD, thyroid normal and no carotid bruits General: trachea midline Resp normal respiratory effort, no retractions and clear to auscultation bilaterally Auscultation: Negative for rales, rhonchi or wheezes Cardio no murmurs, no rub and no gallops Cardio Narrative: Heart rate and rhythm is irregular GI normal to inspection, nondistended, normoactive bowel sounds, soft to palpation,non-tender and non-distended Extremity Extremity Narrative: Generalized lower leg edema is noted bilaterally Skin Skin Narrative: Patient has bilateral lower leg skin changes/lymphedema, there is redness noted of the right lateral thigh extending into the proximal right lower leg, this area is tender to palpation and warm to the touch Neuro oriented x3, CN's II-XII intact bilaterally, moves all extremities, no focal motor deficits and no sensory deficits noted Sensorium / Orientation: awake and alert Speech: speech normal Psych affect normal Assessment & Plan Assessment/Plan (1) Cellulitis of leg, right: (2) Exertional dyspnea: PLAN: Plan 1. Right leg cellulitis-patient will continue IV clindamycin, he will be transition to Omnicef as an outpatient #2 exertional dyspnea-probably due to anasarca, patient will continue IV Lasix #3 atrial fibrillation-patient is on anticoagulation and sotalol #4 class III obesity-complicates care, management, recovery, prognosis Total clinical time spent by myself addressing the patient's medical issues, reviewing all of his data, and collaborating with patient's care team: 35 minutes Charges/Coding Visit Charges Inpatient E&M: 39356 Subs Hosp L2 08/08/241930 Cosigner Signature (if applicable): CC: ~ Signed [facility]06-09-2025 History and physical note Author [facility] Note Date/Time August 08, 2024 8:31a m [facility] Medical Records Department [address] [place] [address] H&P Exam - Hospitalist 08/07/24 1507 MR#: [id number] Acct: [id number] Name: RICHI HU Rep #:[id number] : 1955 69 From: Seb Cortes DO PCP: Dr. Omid Colindres MD Status:ADM I N Location: [facility] [id number] HPI - General General Date of Admission: 08/07/24 Date of Service: 08/07/24 Chief Complaint: Shortness of breath, right leg redness/pain HPI Narrative RICHI HU, is a 69 M who presents to the emergency room at [facility] with complaints of shortness of breath particularly on exertion and right leg redness x 2 days. Patient has a history of atrial fibrillation and iscurrently on Xarelto. Patient denies any fever, he denies any chills. Labs were obtained in the emergency room, white blood cell count was 11.8, chemistry profile was unremarkable, patient's beta natruretic peptide was 706. Patient's pulse ox on room air was above 90%, he did not desaturate on activity. Patient had chest x-ray performed which showed no evidence of CHF. Examination of the right leg revealed a reddened area along with tenderness on the lateral right thigh extending into the right proximal leg. There is generalized edema in both lower extremities. Patient will be admitted for right leg cellulitis and anasarca, he will be placed on IV Lasix and he received IV clindamycin. Labs will be monitored. [facility] Medical History (Updated 08/07/24 @ 14:02 by Liberty Lucas) CPAP (continuous positive airway pressure) dependence Sleep apnea Congestive heart failure (CHF) Hypertension Impacted cerumen of both ears Cholecystitis History [...] Essential (primary) hypertension Back pain Knee pain Home Medications ?Medication ?Instructions ?Recorded ?Last Taken ?Type cholecalciferol (vitamin D3) 25 25 mcg PO DAILY vitami n 07/25/20 Unknown History mcg (1,000 unit) capsule multivitamin (Multiple Vitamins 1 tab PO DAILY vitamin 07/25/20 Unknown History tablet) latanoprost 0.005 % eye drops 1 drp ophthalmic (eye) D AILY 12/02/20 Unknown History glaucoma tramadol 50 mg tablet 50 mg PO ONCE PRN pain 07/15 Unknown History vitamin B complex 1 tab PO DAILY vitamin 07/08 Unknown History rivaroxaban 20 mg tablet (Xarelto) 20 mg PO .COMPLEX # 90 tabs 07/27/24 Unknown Rx furosemide 40 mg tablet 40 mg PO DAILY #90 tabs 07/01 11/24 Unknown Rx losartan 50 mg tablet 50 mg PO DAILY #90 tabs 07/01 11/24 Unknown Rx magnesium oxide 400 mg (241.3 mg 400 mg PO BID #180 ta bs 07/28/24 Unknown Rx magnesium) tablet sotalol 120 mg tablet 120 mg PO BID #180 tabs 07/01 11/24 Unknown Rx spironolactone 25 mg tablet 25 mg PO DAILY #90 tabs Unknown Rx Allergy/AdvReac Type Severity Reaction Status Date / Time Penicillins Allergy Anaphylaxis Verified 08/07/24 11:09 Sulfa (Sulfonamide Allergy Hives Verified 08/07/24 11:09 Antibiotics) Family History Father Cancer glioblastoma Mother No problems noted. Surgical History History of cholecystectomy (12/31/21) History of radiofrequency ablation procedure for cardiac arrhythmia (11/29/20) History of colonoscopy (04/27/20) History of left heart catheterization (11/16/19) History of cardioversion (12/25/20) History of total right knee replacement History of tonsillectomy and adenoidectomy History of knee surgery History of back surgery Social History household members: spouse and children housing: house Smoking Status: Never smoker alcohol intake: never what type of physical activity do you participate in: none do you feel safe at home: Yes ROS Constitutional Constitutional: Denies anorexia, change in weight, chills, fatigue, fever(s), malaise, night sweats or weakness Eyes Eyes: Denies blurry vision, change in vision, discharge from eye(s) or eye pain Cardiovascular Cardiovascular: Reports edema and palpitations; Denies chest pain or claudication Respiratory/Chest Respiratory/Chest: Reports shortness of breath with exertion; Denies cough, hemoptysis or shortness of breath at rest Gastrointestinal Gastrointestinal: Denies abdominal pain, constipation, diarrhea, hematemesis, hematochezia, melena, nausea or vomiting Genitourinary Genitourinary: Denies dysuria, hematuria, urinary frequency, urinary hesitancy, urinary incontinence or urinary urgency Musculoskeletal Musculoskeletal: Denies back pain, joint pain, joint stiffness, joint swelling, myalgias or neck pain Neurologic Neurologic: Denies abnormal gait, abnormal speech, dizziness, focal weakness, headache(s), loss of vision, numbness, other visual disturbances, paresthesias, syncope or tingling Psychiatric Psychiatric: Denies anxiety, cognitive impairment, depression, irritability, mood swings or suicidal ideation Endocrine Endocrinology: Denies change in body appearance, cold intolerance, excessive sweating, heat intolerance, polydipsia or polyuria Hematologic/Lymphatic Hematologic/Lymphatic: Denies none, anemia, easy bleeding, easy bruising or lymphadenopathy Allergic/Immunologic Allergic/Immunologic: Denies rhinitis, urticaria, eczemia or asthma Vital Signs Vital Signs Vital Signs: 08/07/24 11:09 08/07/24 11:25 08/07/24 12:08 Temperature 98.1 F Temperature Source Oral Pulse Rate 86 87 Respiratory Rate 16 19 H Respiratory Effort Short of Breath Labored Respiratory Depth Respiratory Pattern Blood Pressure 135/85 H 109/61 Blood Pressure Mean 101 77 Blood Pressure Source Blood Pressure Position Blood Pressure Location Pulse Ox 97 96 Oxygen Delivery Method Room Air Room Air 08/07/24 13:00 08/07/24 13:25 08/07/24 13:58 Temperature 98.9 F Temperature Source Pulse Rate 78 78 Respiratory Rate 13 13 Respiratory Effort Normal Respiratory Depth Normal Respiratory Pattern Normal Blood Pressure 117/51 L 117/51 L Blood Pressure Mean 73 73 Blood Pressure Source Blood Pressure Position Blood Pressure Location Pulse Ox 98 98 Oxygen Delivery Method Room Air 08/07/24 14:25 08/07/24 14:25 Temperature 97.8 F 97.8 F Temperature Source Oral Oral Pulse Rate 79 79 Respiratory Rate 16 16 Respiratory Effort Respiratory Depth Respiratory Pattern Blood Pressure 113/69 113/69 Blood Pressure Mean 83 83 Blood Pressure Source Monitor Blood Pressure Position Supine Blood Pressure Location Right Forearm Pulse Ox 99 99 Oxygen Delivery Method Room Air Room Air Weight Weight: 200.941 kg Body Mass Index (BMI) 52.5 Physical Exam Const alert, oriented x3 and no apparent distress Constitutional Narrative: Patient has class III obesity General Appearance: cooperative, well kempt and well developed Orientation / Consciousness: awake, oriented to person, oriented to place and oriented to time HEENT normocephalic, head/scalp atraumatic, hearing grossly normal bilaterally and moist oral mucous membranes Eyes PERRL, EOMs intact bilaterally and conjunctivae normal Neck supple, no JVD, thyroid normal and no carotid bruits General: trachea midline Resp normal respiratory effort, no retractions and clear to auscultation bilaterally Auscultation: Negative for rales, rhonchi or wheezes Cardio no murmurs, no rub and no gallops Cardio Narrative: Heart rate and rhythm is irregular GI normal to inspection, nondistended, normoactive bowel sounds, soft to palpation,non-tender and non-distended Extremity Extremity Narrative: Generalized lower leg edema is noted bilaterally Skin Skin Narrative: Patient has bilateral lower leg skin changes/lymphedema, there is redness noted of the right lateral thigh extending into the proximal right lower leg, this area is tender to palpation and warm to the touch Neuro oriented x3, CN's II-XII intact bilaterally, moves all extremities, no focal motor deficits and no sensory deficits noted Sensorium / Orientation: awake and alert Speech: speech normal Psych affect normal Results Lab / Micro Data 08/08/24 06:08 08/08/24 06:08 Labs: Laboratory Results - last 24 hr 08/07/24 11:24: WBC 11.8 H, RBC 4.58 L, Hgb 14.6, Hct 42.5, MCV 92.8, MCH 31.9, MCHC 34.4, RDW Std Deviation 44.8 H, RDW Coeff of [place] 13.2, Plt Count 165, MPV 9.7, Immature Gran % (Auto) 0.400, Neut % (Auto) 76.2 H, Lymph % (Auto) 14.0 L, [place] % (Auto) 8.6, Eos % (Auto) 0.5, Baso % (Auto) 0.3, Absolute Neuts (auto) 9.0 H, Absolute Lymphs (auto) 1.65, Nucleated RBC % 0, Sodium 135, Potassium 3.5, Chloride 100, Carbon Dioxide 21.5, Anion Gap 14, BUN 18, Creatinine 0.81, Estim Creat Clear Calc 163.39, Est GFR (MDRD) Non-Af 96, BUN/Creatinine Ratio 21.6 H, Glucose 99, Calcium 9.3, Troponin T High Sens 9, NT pro BNP II 706 08/07/24 11:54: Lactic Acid 1.6 08/07/24 13:30: Troponin T Hi Sens 2 Hr 8 Micro: Microbiology 08/07/24 11:57 Mucosa - Nose SARS-CoV-2, Influenza & RSV (PCR) - Final Imaging Radiology Impression Brain CT 08/07/24 11:46 IMPRESSION: No acute process detected. Reading Location: [facility] Chest X-Ray 08/07/24 12:12 IMPRESSION: No Acute Findings. Moderate cardiomegaly. Reading Location: [facility] Assessment & Plan Assessment/Plan (1) Exertional dyspnea: PLAN: Plan 1. Right leg cellulitis-patient will be admitted to [facility], he will be given IV clindamycin and monitored. #2 exertional dyspnea-probably due to anasarca, patient will be given IV Lasix #3 atrial fibrillation-patient is on anticoagulation and sotalol #4 class III obesity-complicates care, management, recovery, prognosis Total clinical time spent by myself addressing the patient's medical issues, reviewing all of his data, and collaborating with patient's care team: 75 minutes Charges/Coding Visit Charges Inpatient E&M: 30185 Init Hosp L3 08/08/24 0831 <Electronically signed by Seb Cortes DO> Cosigner Signature (if applicable): CC: Dr. Seb Cortes DO; Dr. Omid Colindres MD~ Signed [facility] Work Phone: [phone] History and physical note [facility] Medical Records Department [address] [place] [address] 19306 H&P Exam - Hospitalist 08/07/24 1507 MR#: [id number] Acct: [id number] Name: RICHI HU Rep #:[id number] : 1955 69 From: Seb Cortes DO PCP: Dr. Omid Colindres MD Status:ADM I N Location: [facility] [id number] HPI - General General Date of Admission: 08/07/24 Date of Service: 08/07/24 Chief Complaint: Shortness of breath, right leg redness/pain HPI Narrative RICHI HU, is a 69 M who presents to the emergency room at [facility] with complaints of shortness of breath particularly on exertion and right leg redness x 2 days. Patient has a history of atrial fibrillation and iscurrently on Xarelto. Patient denies any fever, he denies any chills. Labs were obtained in the emergency room, white blood cell count was 11.8, chemistry profile was unremarkable, patient's beta natruretic peptide was 706. Patient's pulse ox on room air was above 90%,he did not desaturate on activity. Patient had chest x-ray performed which showed no evidence of CHF. Examination of the right leg revealed a reddened area along with tenderness on the lateral right thigh extending into the right proximal leg. There is generalized edema in both lower extremities. Patient will be admitted for right leg cellulitis and anasarca, he will be placed on IV Lasix and he received IV clindamycin. Labs will be monitored. [facility] Medical History (Updated 08/07/24 @ 14:02 by Liberty Lucas) CPAP (continuous positive airway pressure) dependence Sleep apnea Congestive heart failure (CHF) Hypertension Impacted cerumen of both ears Cholecystitis History [...] Essential (primary) hypertension Back pain Knee pain Home Medications ?Medication ?Instructions ?Recorded ?Last Taken ?Type cholecalciferol (vitamin D3) 25 25 mcg PO DAILY vitami n 07/25/20 Unknown History mcg (1,000 unit) capsule multivitamin (Multiple Vitamins 1 tab PO DAILY vitamin 07/25/20 Unknown History tablet) latanoprost 0.005 % eye drops 1 drp ophthalmic (eye) D AILY 12/02/20 Unknown History glaucoma tramadol 50 mg tablet 50 mg PO ONCE PRN pain 07/15 Unknown History vitamin B complex 1 tab PO DAILY vitamin 07/08 Unknown History rivaroxaban 20 mg tablet (Xarelto) 20 mg PO .COMPLEX # 90 tabs 07/27/24 Unknown Rx furosemide 40 mg tablet 40 mg PO DAILY #90 tabs 07/01 11/24 Unknown Rx losartan 50 mg tablet 50 mg PO DAILY #90 tabs 07/01 11/24 Unknown Rx magnesium oxide 400 mg (241.3 mg 400 mg PO BID #180 ta bs 07/28/24 Unknown Rx magnesium) tablet sotalol 120 mg tablet 120 mg PO BID #180 tabs 07/01 11/24 Unknown Rx spironolactone 25 mg tablet 25 mg PO DAILY #90 tabs Unknown Rx Allergy/AdvReac Type Severity Reaction Status Date / Time Penicillins Allergy Anaphylaxis Verified 08/07/24 11:09 Sulfa (Sulfonamide Allergy Hives Verified 08/07/24 11:09 Antibiotics) Family History Father Cancer glioblastoma Mother No problems noted. Surgical History History of cholecystectomy (12/31/21) History of radiofrequency ablation procedure for cardiac arrhythmia (11/29/20) History of colonoscopy (04/27/20) History of left heart catheterization (11/16/19) History of cardioversion (12/25/20) History of total right knee replacement History of tonsillectomy and adenoidectomy History of knee surgery History of back surgery Social History household members: spouse and children housing: house Smoking Status: Never smoker alcohol intake: never what type of physical activity do you participate in: none do you feel safe at home: Yes ROS Constitutional Constitutional: Denies anorexia, change in weight, chills, fatigue, fever(s), malaise, night sweatsor weakness Eyes Eyes: Denies blurry vision, change in vision, discharge from eye(s) or eye pain Cardiovascular Cardiovascular: Reports edema and palpitations; Denies chest pain or claudication Respiratory/Chest Respiratory/Chest: Reports shortness of breath with exertion; Denies cough, hemoptysis or shortnessof breath at rest Gastrointestinal Gastrointestinal: Denies abdominal pain, constipation, diarrhea, hematemesis, hematochezia, melena,nausea or vomiting Genitourinary Genitourinary: Denies dysuria, hematuria, urinary frequency, urinary hesitancy, urinary incontinence or urinary urgency Musculoskeletal Musculoskeletal: Denies back pain, joint pain, joint stiffness, joint swelling, myalgias or neck pain Neurologic Neurologic: Denies abnormal gait, abnormal speech, dizziness, focal weakness, headache(s), loss of vision, numbness, other visual disturbances, paresthesias, syncope or tingling Psychiatric Psychiatric: Denies anxiety, cognitive impairment, depression, irritability, mood swings or suicidal ideation Endocrine Endocrinology: Denies change in body appearance, cold intolerance, excessive sweating, heat intolerance, polydipsia or polyuria Hematologic/Lymphatic Hematologic/Lymphatic: Denies none, anemia, easy bleeding, easy bruising or lymphadenopathy Allergic/Immunologic Allergic/Immunologic: Denies rhinitis, urticaria, eczemia or asthma Vital Signs Vital Signs Vital Signs: 08/07/24 11:09 08/07/24 11:25 08/07/24 12:08 Temperature 98.1 F Temperature Source Oral Pulse Rate 86 87 Respiratory Rate 16 19 H Respiratory Effort Short of Breath Labored Respiratory Depth Respiratory Pattern Blood Pressure 135/85 H 109/61 Blood Pressure Mean 101 77 Blood Pressure Source Blood Pressure Position Blood Pressure Location Pulse Ox 97 96 Oxygen Delivery Method Room Air Room Air 08/07/24 13:00 08/07/24 13:25 08/07/24 13:58 Temperature 98.9 F Temperature Source Pulse Rate 78 78 Respiratory Rate 13 13 Respiratory Effort Normal Respiratory Depth Normal Respiratory Pattern Normal Blood Pressure 117/51 L 117/51 L Blood Pressure Mean 73 73 Blood Pressure Source Blood Pressure Position Blood Pressure Location Pulse Ox 98 98 Oxygen Delivery Method Room Air 08/07/24 14:25 08/07/24 14:25 Temperature 97.8 F 97.8 F Temperature Source Oral Oral Pulse Rate 79 79 Respiratory Rate 16 16 Respiratory Effort Respiratory Depth Respiratory Pattern Blood Pressure 113/69 113/69 Blood Pressure Mean 83 83 Blood Pressure Source Monitor Blood Pressure Position Supine Blood Pressure Location Right Forearm Pulse Ox 99 99 Oxygen Delivery Method Room Air Room Air Weight Weight: 200.941 kg Body Mass Index (BMI) 52.5 Physical Exam Const alert, oriented x3 and no apparent distress Constitutional Narrative: Patient has class III obesity General Appearance: cooperative, well kempt and well developed Orientation / Consciousness: awake, oriented to person, oriented to place and oriented to time HEENT normocephalic, head/scalp atraumatic, hearing grossly normal bilaterally and moist oral mucous membranes Eyes PERRL, EOMs intact bilaterally and conjunctivae normal Neck supple, no JVD, thyroid normal and no carotid bruits General: trachea midline Resp normal respiratory effort, no retractions and clear to auscultation bilaterally Auscultation: Negative for rales, rhonchi or wheezes Cardio no murmurs, no rub and no gallops Cardio Narrative: Heart rate and rhythm is irregular GI normal to inspection, nondistended, normoactive bowel sounds, soft to palpation,non-tender and non-distended Extremity Extremity Narrative: Generalized lower leg edema is noted bilaterally Skin Skin Narrative: Patient has bilateral lower leg skin changes/lymphedema, there is redness noted of the right lateral thigh extending into the proximal right lower leg, this area is tender to palpation and warm to the touch Neuro oriented x3, CN's II-XII intact bilaterally, moves all extremities, no focal motor deficits and no sensory deficits noted Sensorium / Orientation: awake and alert Speech: speech normal Psych affect normal Results Lab / Micro Data 08/08/24 06:08 08/08/24 06:08 Labs: Laboratory Results - last 24 hr 08/07/24 11:24: WBC 11.8 H, RBC 4.58 L, Hgb 14.6, Hct 42.5, MCV 92.8, MCH 31.9, MCHC 34.4, RDW Std Deviation 44.8 H, RDW Coeff of [place] 13.2, Plt Count 165, MPV 9.7, Immature Gran % (Auto) 0.400, Neut % (Auto) 76.2 H, Lymph % (Auto) 14.0 L, [place] % (Auto) 8.6, Eos % (Auto) 0.5, Baso % (Auto) 0.3, Absolute Neuts (auto) 9.0 H, Absolute Lymphs (auto) 1.65, Nucleated RBC % 0, Sodium 135, Potassium 3.5, Chloride 100, Carbon Dioxide 21.5, Anion Gap 14, BUN 18, Creatinine 0.81, Estim Creat Clear Calc 163.39, Est GFR (MDRD) Non-Af 96, BUN/Creatinine Ratio 21.6 H, Glucose 99, Calcium 9.3, Troponin T HighSens 9, NT pro BNP II 706 08/07/24 11:54: Lactic Acid 1.6 08/07/24 13:30: Troponin T Hi Sens 2 Hr 8 Micro: Microbiology 08/07/24 11:57 Mucosa - Nose SARS-CoV-2, Influenza & RSV (PCR) - Final Imaging Radiology Impression Brain CT 08/07/24 11:46 IMPRESSION: No acute process detected. Reading Location: [facility] Chest X-Ray 08/07/24 12:12 IMPRESSION: No Acute Findings. Moderate cardiomegaly. Reading Location: [facility] Assessment & Plan Assessment/Plan (1) Exertional dyspnea: PLAN: Plan 1. Right leg cellulitis-patient will be admitted to [facility], he will be given IV clindamycin and monitored. #2 exertional dyspnea-probably due to anasarca, patient will be given IV Lasix #3 atrial fibrillation-patient is on anticoagulation and sotalol #4 class III obesity-complicates care, management, recovery, prognosis Total clinical time spent by myself addressing the patient's medical issues, reviewing all of his data, and collaborating with patient's care team: 75 minutes Charges/Coding Visit Charges Inpatient E&M: 48519 Init Hosp L3 08/08/24 0831 Cosigner Signature (if applicable): CC: Dr. Seb Cortes DO; Dr. Omid Colindres MD~ Signed [facility]06-08-2025 Discharge summary Author [facility] Note Date/Time August 07, 2024 4:26p [facility] Medical Records Department [address] [place] [address] Emergency Department Summary 08/07/24 MR#: [id number] Acct: [id number] Name: RICHI HU Rep #:[id number] : 1955 69 From: David Stallworth DO PCP: Dr. Omid Colindres MD Status:ADM I N Location: [place] [id number] HPI History of Present Illness Chief Complaint: Shortness of Breath Detail of Chief Complaint: Not feeling well x 5 days Informant: patient Narrative Narrative: Patient presents the emergency department with complaint of feeling poorly for the last 5 days. She has had some chills and some generalized weakness. Recently developed a cough and sore throat and headache. No known fever. Also feels short of breath with activity. He has history of A-fib with prior ablation but 2 months ago went back into A-fib. He is anticoagulated with Xarelto. He denies chest pain. PFSH PFSH Medical History Impacted cerumen of both [...] Essential (primary) hypertension Back pain Knee pain Home Medications ?Medication ?Instructions ?Recorded ?Last Taken ?Type cholecalciferol (vitamin D3) 25 25 mcg PO DAILY Unknown History mcg (1,000 unit) capsule multivitamin (Multiple Vitamins 1 tab PO DAILY 1 Unknown History tablet) latanoprost 0.005 % eye drops 1 drp ophthalmic (eye) D AILY 12/02/20 Unknown His tory tramadol 50 mg tablet 50 mg PO ONCE PRN pain 07/15 Unknown History vitamin B complex 1 tab PO DAILY 07/09/23 Unkn own History rivaroxaban 20 mg tablet (Xarelto) 20 mg PO .COMPLEX # 90 tabs 07/27/24 Unknown Rx furosemide 40 mg tablet 40 mg PO DAILY #90 tabs 07/01 11/24 Unknown Rx losartan 50 mg tablet 50 mg PO DAILY #90 tabs 07/01 11/24 Unknown Rx magnesium oxide 400 mg (241.3 mg 400 mg PO BID #180 ta bs 07/28/24 Unknown Rx magnesium) tablet sotalol 120 mg tablet 120 mg PO BID #180 tabs 07/01 11/24 Unknown Rx spironolactone 25 mg tablet 25 mg PO DAILY #90 tabs Unknown Rx Allergy/AdvReac Type Severity Reaction Status Date / Time Penicillins Allergy Anaphylaxis Verified 08/07/24 11:09 Sulfa (Sulfonamide Allergy Hives Verified 08/07/24 11:09 Antibiotics) Family History Father Cancer glioblastoma Mother No problems noted. Surgical History History of cholecystectomy (12/31/21) History of radiofrequency ablation procedure for cardiac arrhythmia (11/29/20) History of colonoscopy (04/27/20) History of left heart catheterization (11/16/19) History of cardioversion (12/25/20) History of total right knee replacement History of tonsillectomy and adenoidectomy History of knee surgery History of back surgery Social History household members: spouse and children housing: house Smoking Status: Never smoker alcohol intake: never what type of physical activity do you participate in: none do you feel safe at home: Yes ROS ROS ED Review of Systems ROS Unobtainable: other Constitutional Constitutional ED: Reports chills and lethargy; Denies fever(s), sweats or weight loss Eyes Eyes: Denies blurry vision, change in vision or diplopia ENT ENT ED: Denies rhinorrhea or sore throat Cardiovascular Cardiovascular: Denies chest pain, orthopnea or racing heartbeat Respiratory/Chest Respiratory/Chest: Reports cough, dyspnea and dyspnea on exertion; Denies orthopnea or sputum Gastrointestinal Gastrointestinal: Denies abdominal pain, diarrhea, nausea or vomiting Genitourinary Genitourinary ED: Denies dysuria, hematuria or urinary frequency Musculoskeletal Musculoskeletal: Reports other; Denies arthralgias, back pain, myalgias or neck pain Integumentary Reports other Details: Redness and swelling to right leg ; Denies abscess, Abrasions or rash Neurologic Neurologic: Denies headache(s) or weakness Psychiatric Psychiatric: Denies anxiety, depression or suicidal thoughts Endocrine Endocrinology: Denies polydipsia, polyphagia or polyuria Hematologic/Lymphatic Hematologic/Lymphatic: Denies easy bleeding, easy bruising or lymphadenopathy Allergic/Immunologic Allergic/Immunologic ED: Denies mouth swelling, tongue swelling or urticaria EXAM Physical Exam Const Vital Signs: 08/07/24 11:09 08/07/24 11:25 08/07/24 12:08 Temperature 98.1 F Temperature Source Oral Pulse Rate 86 87 Respiratory Rate 16 19 H Respiratory Effort Short of Breath Labored Blood Pressure 135/85 H 109/61 Blood Pressure Mean 101 77 Pulse Ox 97 96 Oxygen Delivery Method Room Air Room Air Positive well nourished and well developed General Appearance ED: well developed and NAD HEENT Reports TM's clear and moist mucous membranes normocephalic and atraumatic; Negative for trauma or tenderness Tympanic Membrane ED: Yes TM's clear Eyes PERRL and EOMs intact bilaterally General Eye ED: Negative for pale conjunctiva or scleral icterus Neck no lymphadenopathy, supple and no JVD General: Negative for tenderness Chest Wall inspection of chest normal and palpation of chest normal Chest: Negative for tenderness Resp normal respiratory effort and clear to auscultation bilaterally Effort and Inspection: Negative for respiratory distress or pain with movement Auscultation: Negative for rhonchi, wheezes or diminished lung sounds Cardio S1 normal heart sound, S2 normal heart sound and no murmurs; Negative for regular rhythm Rate: tachycardic and other Rhythm: abnormal rhythm irregularly irregular Peripheral Pulses: pulses 2+ throughout GI normal to inspection, nondistended, normoactive bowel sounds, soft to palpation,non-tender, non-distended and no masses Back/Spine no CVA tenderness and no thoracic nor lumbar tenderness Extremity normal to inspection Extremity Narrative: Patient has +2 edema both lower extremities from below the knee to the toes. Patient has cellulitic changes to the right lower extremity with a odd almost vasculitic appearing rash to distal right lateral thigh extending to the right lateral calf. No vesicles noted. General Extremety ED: Negative for edema General Extremity: Negative for edema Neuro oriented x3, CN's II-XII intact bilaterally, no sensory deficits noted and gait normal Sensorium / Orientation: awake, alert, oriented to person, oriented to place andoriented to time Motor Exam: strength 5/5 throughout and strength abnormal Psych mental status grossly normal Skin no rashes or lesions noted and no wounds MDM MDM MDM Narrative Medical decision making narrative: Patient presents with chills x 5 days and now a red rash involving the right lower extremity with edema and some weeping from the lower leg. He denies feverat home. Clinically looks well. Has significant cellulitic changes of the right lower extremity. IV line established. CBC with differential obtained showing an 11.8 with hemoglobin 14.6 and platelet count of 165. Chemistries unremarkable. 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 COVID flu and RSV testing was negative. Patient had chest x-ray that essentially was unremarkable. Blood cultures ordered. Patient started empirically on clindamycin as he has pen allergy and allergy to sulfa. Case will be discussed with hospitalist to evaluate patient for admission for cellulitis. We will outline the area of erythema with marker. Lab Data Attestation: I reviewed the patient's lab results. Labs: Laboratory Results - last 24 hr 08/07/24 08/07/24 11:24 11:54 WBC 11.8 H RBC 4.58 L Hgb 14.6 Hct 42.5 MCV 92.8 MCH 31.9 MCHC 34.4 RDW Std Deviation 44.8 H RDW Coeff of [place] 13.2 Plt Count 165 MPV 9.7 Immature Gran % (Auto) 0.400 Neut % (Auto) 76.2 H Lymph % (Auto) 14.0 L [place] % (Auto) 8.6 Eos % (Auto) 0.5 Baso % (Auto) 0.3 Absolute Neuts (auto) 9.0 H Absolute Lymphs (auto) 1.65 Nucleated RBC % 0 Sodium 135 Potassium 3.5 Chloride 100 Carbon Dioxide 21.5 Anion Gap 14 BUN 18 Creatinine 0.81 Estim Creat Clear Calc 163.39 Est GFR (MDRD) Non-Af 96 BUN/Creatinine Ratio 21.6 H Glucose 99 Lactic Acid 1.6 Calcium 9.3 Troponin T High Sens 9 NT pro BNP II 706 Radiography Diagnostic Testing: Clinical Impression(s) from Imaging Studies Brain CT 08/07/24 11:46 IMPRESSION: No acute process detected. Reading Location[facility] Chest X-Ray 08/07/24 12:12 IMPRESSION: No Acute Findings. Moderate cardiomegaly. Reading Location[facility] 1 view chest x-ray obtained interpreted by myself no evidence of infiltrate or pneumothorax or acute disease process. Radiology in agreement felt there was moderate cardiomegaly. EKG Initial EKG: Attestation: I personally reviewed and interpreted this EKG as follows: Comments: Atrial flutter with variable block with rate of [address] changes Discharge Plan Dx/Rx/DC Orders Clinical Impression: Cellulitis of leg, right, Atrial fibrillation, Exertional dyspnea Disposition Disposition: Acute Care Hospital [facility] What to do if you have Problems For any increased pain, shortness of breath, bleeding, nausea or vomiting, chestpain, or any unexpected problems, contact your Primary Care Provider. Call [facility] ([phone]) or report to the closest Emergency Room. Call 911 if necessary. 08/07/24 1626 <Electronically signed by David Stallworth DO> Cosigner Signature (if applicable): CC: Dr. Omid Colindres MD ~ Signed [facility] Work Phone: 1(371) 813-843406-08-2025 Discharge summary [facility] Medical Records Department [address] [place] [address] Emergency Department Summary 08/07/24 MR#: [id number] Acct: [id number] Name: RICHI HU Rep #:[id number] : 1955 69 From: David Stallworth DO PCP: Dr. Omid Colindres MD Status:ADM I N Location: [place] [address] HPI History of Present Illness Chief Complaint: Shortness of Breath Detail of Chief Complaint: Not feeling well x 5 days Informant: patient Narrative Narrative: Patient presents the emergency department with complaint of feeling poorly for the last 5 days. Shehas had some chills and some generalized weakness. Recently developed a cough and sore throat and headache. No known fever. Also feels short of breath with activity. He has history of A-fib with prior ablation but 2 months ago went back into A-fib. He is anticoagulated with Xarelto. He denies chestpain. [facility] Medical History Impacted cerumen of both ears [...] Essential (primary) hypertension Back pain Knee pain Home Medications ?Medication ?Instructions ?Recorded ?Last Taken ?Type cholecalciferol (vitamin D3) 25 25 mcg PO DAILY Unknown History mcg (1,000 unit) capsule multivitamin (Multiple Vitamins 1 tab PO DAILY 1 Unknown History tablet) latanoprost 0.005 % eye drops 1 drp ophthalmic (eye) D AILY 12/02/20 Unknown His tory tramadol 50 mg tablet 50 mg PO ONCE PRN pain 07/15 Unknown History vitamin B complex 1 tab PO DAILY 07/09/23 Unkn own History rivaroxaban 20 mg tablet (Xarelto) 20 mg PO .COMPLEX # 90 tabs 07/27/24 Unknown Rx furosemide 40 mg tablet 40 mg PO DAILY #90 tabs 07/01 11/24 Unknown Rx losartan 50 mg tablet 50 mg PO DAILY #90 tabs 07/01 11/24 Unknown Rx magnesium oxide 400 mg (241.3 mg 400 mg PO BID #180 ta bs 07/28/24 Unknown Rx magnesium) tablet sotalol 120 mg tablet 120 mg PO BID #180 tabs 07/01 11/24 Unknown Rx spironolactone 25 mg tablet 25 mg PO DAILY #90 tabs Unknown Rx Allergy/AdvReac Type Severity Reaction Status Date / Time Penicillins Allergy Anaphylaxis Verified 08/07/24 11:09 Sulfa (Sulfonamide Allergy Hives Verified 08/07/24 11:09 Antibiotics) Family History Father Cancer glioblastoma Mother No problems noted. Surgical History History of cholecystectomy (12/31/21) History of radiofrequency ablation procedure for cardiac arrhythmia (11/29/20) History of colonoscopy (04/27/20) History of left heart catheterization (11/16/19) History of cardioversion (12/25/20) History of total right knee replacement History of tonsillectomy and adenoidectomy History of knee surgery History of back surgery Social History household members: spouse and children housing: house Smoking Status: Never smoker alcohol intake: never what type of physical activity do you participate in: none do you feel safe at home: Yes ROS ROS ED Review of Systems ROS Unobtainable: other Constitutional Constitutional ED: Reports chills and lethargy; Denies fever(s), sweats or weight loss Eyes Eyes: Denies blurry vision, change in vision or diplopia ENT ENT ED: Denies rhinorrhea or sore throat Cardiovascular Cardiovascular: Denies chest pain, orthopnea or racing heartbeat Respiratory/Chest Respiratory/Chest: Reports cough, dyspnea and dyspnea on exertion; Denies orthopnea or sputum Gastrointestinal Gastrointestinal: Denies abdominal pain, diarrhea, nausea or vomiting Genitourinary Genitourinary ED: Denies dysuria, hematuria or urinary frequency Musculoskeletal Musculoskeletal: Reports other; Denies arthralgias, back pain, myalgias or neck pain Integumentary Reports other Details: Redness and swelling to right leg ; Denies abscess, Abrasions or rash Neurologic Neurologic: Denies headache(s) or weakness Psychiatric Psychiatric: Denies anxiety, depression or suicidal thoughts Endocrine Endocrinology: Denies polydipsia, polyphagia or polyuria Hematologic/Lymphatic Hematologic/Lymphatic: Denies easy bleeding, easy bruising or lymphadenopathy Allergic/Immunologic Allergic/Immunologic ED: Denies mouth swelling, tongue swelling or urticaria EXAM Physical Exam Const Vital Signs: 08/07/24 11:09 08/07/24 11:25 08/07/24 12:08 Temperature 98.1 F Temperature Source Oral Pulse Rate 86 87 Respiratory Rate 16 19 H Respiratory Effort Short of Breath Labored Blood Pressure 135/85 H 109/61 Blood Pressure Mean 101 77 Pulse Ox 97 96 Oxygen Delivery Method Room Air Room Air Positive well nourished and well developed General Appearance ED: well developed and NAD HEENT Reports TM's clear and moist mucous membranes normocephalic and atraumatic; Negative for trauma or tenderness Tympanic Membrane ED: Yes TM's clear Eyes PERRL and EOMs intact bilaterally General Eye ED: Negative for pale conjunctiva or scleral icterus Neck no lymphadenopathy, supple and no JVD General: Negative for tenderness Chest Wall inspection of chest normal and palpation of chest normal Chest: Negative for tenderness Resp normal respiratory effort and clear to auscultation bilaterally Effort and Inspection: Negative for respiratory distress or pain with movement Auscultation: Negative for rhonchi, wheezes or diminished lung sounds Cardio S1 normal heart sound, S2 normal heart sound and no murmurs; Negative for regular rhythm Rate: tachycardic and other Rhythm: abnormal rhythm irregularly irregular Peripheral Pulses: pulses 2+ throughout GI normal to inspection, nondistended, normoactive bowel sounds, soft to palpation,non-tender, non-distended and no masses Back/Spine no CVA tenderness and no thoracic nor lumbar tenderness Extremity normal to inspection Extremity Narrative: Patient has +2 edema both lower extremities from below the knee to the toes. Patient has celluliticchanges to the right lower extremity with a odd almost vasculitic appearing rash to distal right lateral thigh extending to the right lateral calf. No vesicles noted. General Extremety ED: Negative for edema General Extremity: Negative for edema Neuro oriented x3, CN's II-XII intact bilaterally, no sensory deficits noted and gait normal Sensorium / Orientation: awake, alert, oriented to person, oriented to place andoriented to time Motor Exam: strength 5/5 throughout and strength abnormal Psych mental status grossly normal Skin no rashes or lesions noted and no wounds MDM MDM MDM Narrative Medical decision making narrative: Patient presents with chills x 5 days and now a red rash involving the right lower extremity with edema and some weeping from the lower leg. He denies feverat home. Clinically looks well. Has significant cellulitic changes of the right lower extremity. IV line established. CBC with differential obtained showing an 11.8 with hemoglobin 14.6 and platelet count of 165. Chemistries unremarkable. 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 COVID flu and RSV testing was negative. Patient had chest x-ray that essentially was unremarkable. Blood cultures ordered. Patient started empirically on clindamycin as he has pen allergy and allergy to sulfa. Case will be discussed with hospitalist to evaluate patient for admission for cellulitis. We will outline the area of erythema with marker. Lab Data Attestation: I reviewed the patient's lab results. Labs: Laboratory Results - last 24 hr 08/07/24 08/07/24 11:24 11:54 WBC 11.8 H RBC 4.58 L Hgb 14.6 Hct 42.5 MCV 92.8 MCH 31.9 MCHC 34.4 RDW Std Deviation 44.8 H RDW Coeff of [place] 13.2 Plt Count 165 MPV 9.7 Immature Gran % (Auto) 0.400 Neut % (Auto) 76.2 H Lymph % (Auto) 14.0 L [place] % (Auto) 8.6 Eos % (Auto) 0.5 Baso % (Auto) 0.3 Absolute Neuts (auto) 9.0 H Absolute Lymphs (auto) 1.65 Nucleated RBC % 0 Sodium 135 Potassium 3.5 Chloride 100 Carbon Dioxide 21.5 Anion Gap 14 BUN 18 Creatinine 0.81 Estim Creat Clear Calc 163.39 Est GFR (MDRD) Non-Af 96 BUN/Creatinine Ratio 21.6 H Glucose 99 Lactic Acid 1.6 Calcium 9.3 Troponin T High Sens 9 NT pro BNP II 706 Radiography Diagnostic Testing: Clinical Impression(s) from Imaging Studies Brain CT 08/07/24 11:46 IMPRESSION: No acute process detected. Reading Location: [facility] Chest X-Ray 08/07/24 12:12 IMPRESSION: No Acute Findings. Moderate cardiomegaly. Reading Location: [facility] 1 view chest x-ray obtained interpreted by myself no evidence of infiltrate or pneumothorax or acute disease process. Radiology in agreement felt there was moderate cardiomegaly. EKG Initial EKG: Attestation: I personally reviewed and interpreted this EKG as follows: Comments: Atrial flutter with variable block with rate of [address] changes Discharge Plan Dx/Rx/DC Orders Clinical Impression: Cellulitis of leg, right, Atrial fibrillation, Exertional dyspnea Disposition Disposition: Acute Care Hospital [facility] What to do if you have Problems For any increased pain, shortness of breath, bleeding, nausea or vomiting, chestpain, or any unexpected problems, contact your Primary Care Provider. Call [facility] ([phone]) or report tothe closest Emergency Room. Call 911 if necessary. 08/07/24 1626 Cosigner Signature (if applicable): CC: Dr. Omid Colindres MD ~ Signed [facility]06-08-2025 Radiology Diagnostic study note [facility] Imaging Services [address] [place], [place] [address] Brain/Head without Contrast MR#: [id number] Acct: [id number] Name: RICHI HU Rep #: [id number] : 1955 M 69 From: Pet danna Mcclain DO PCP: Dr. Omid Colindres MD Status: REG E R Study:Brain/Head without Contrast Date of Exa m: 08/07/24 Exam# [id number] Ordering Dr: Katherin Stallworth DO PROCEDURE: BRAIN/HEAD WITHOUT CONTRAST 08/07/2024 REASON FOR EXAM: HEADACHE, ON XARELTO TECHNIQUE: Head CT without intravenous contrast. Coronal and Sagittal reconstruction serieswere provided. One or more dose reduction techniques were used (e.g., Automated exposure control, adjustment of the mA and/or kV according to patient size, use of iterative reconstruction technique. RADIATION DOSE SUMMARY: CTDlvol: 44.99 mGy DLP: 914.22 mGycm COMPARISON: None FINDINGS: Brain: No intra-axial or extra-axial hemorrhage. No mass, mass effect or midline shift. No obvious ischemia or infarct. CSF Spaces: Unremarkable Sinuses/Mastoids: Small mucous retention cysts in the left maxillary sinus. Remaining sinuses are clear. Bones: Unremarkable. CT/Brain/Head without Contrast IMPRESSION: No acute process detected. Reading Location: [facility] CC: Dr. Omid Colindres MD; Dr. David Stallworth DO ~ Granulating Blender: Signed [facility]06-08-2025 Radiology Diagnostic study note [facility] Imaging Services [address] [place] [address] Chest 1 View (Portable) MR#: [id number] Acct: [id number] Name: RICHI HU Rep #: [id number] : 1955 M 69 From: Debbie Velazquez MD PCP: Dr. Omid Colindres MD Status: REG E R Study:Chest 1 View (Portable) Date of Exam: 08/07/24 Exam# [id number] Ordering Dr: Katherin Stallworth DO PROCEDURE: CHEST 1 VIEW (PORTABLE) 08/07/2024 REASON FOR EXAM: DYSPNEA TECHNIQUE: Frontal view of the chest. COMPARISON: 03/10/2020 FINDINGS: Hardware: None Heart: Heart size is moderately enlarged. Lungs: No focal consolidation. No pneumothorax. No pleural effusion. Bones: The bones are unremarkable. Other: RAD/Chest 1 View (Portable) IMPRESSION: No Acute Findings. Moderate cardiomegaly. Reading Location: [id number] CC: Dr. Omid Colindres MD; Dr. David Stallworth, DO ~ Granulating Blender: Signed [facility]11-04-2022 NoteSend Summary: Discharge Summary Providers: Provider RoleProvider Name AttendingYan, Bebeto ReferringAliya, Jerrell ConsultingGalorville, Geovanna ConsultingAliya, Jerrell PrimaryGloria, Pcp Note Recipients: Unknown, Pcp, Discharge: Summary: [...] of : 1955 Admit Type: Inpatient Site: [place] [address] Ethnicity: Unknown Race: Unknown Attending MD: Argelia Abad MD, [id number] Dec 31, 2021 Condition at Discharge: Satisfactory Disposition at Discharge: Home Vital Signs: T PRBPMAPSpO2 Value35.89259719/839288% Date/Time01/03 12: 12: 12: 12: 12: 12:00 Range(35.8C - 37.5C ) (56 - 74 ) (17 - 22 ) (109 - 124 )/ (51 - 66 ) (78 - 81 ) (93% - 98% ) As of 03-Jan-2022 09:00:00, patient is on 0 L/min of oxygen via CPAP. Highest temp of 37.5 C was recorded at 01/03 4:00 Date: Weight/Scale Type:Height: 30-Dec-2021 11:14331.3 kg / xmb175.5 cm Physical Exam: Constitutional: Well developed, awake/alert/oriented [...] Xarelto Diastolic CHF, HLD/ HTN transferred from [place] ED with chief complaint of abdominal pain. [...] downtrend. Patient taken for Lap erica on 11/2, he tolerated the procedure well. He was [...] [place] Reason for Referral: (more content not included)...[facility] 12-30-2021 NoteHistory of Present Illness: Admission Reason: abdominal pain HPI: RICHI HU is a 66 year old Male with a past medical history of afib Xarelto Diastolic CHF, HLD/ HTN transferred from [place] ED with chief complaint of abdominal pain. [...] this patient. Objective: Objective Information: T PRBPMAPSpO2 Value36.67096228/2411743% Date/Time12/30 10: 10: 10: 10: 10: 10:45 [...] at HS HTN Morbid obesity BMI Plan: - admit [...] on HOLD for poss (more content not included)...[facility]10-26-2021 Evaluation note* Diagnosis Onset Date Resolution Status Admit Date Atrial fibrillation/flutter December 25, 2020 chronic July 19, 2024 10:32am Central sleep apnea associated with atrial fibrillation chronic July 19, 2024 10:32am Chronic diastolic (congestive) heart failure chronic July 012024 10:32am Essential (primary) hypertension chronic July 19, 2024 10:32am History of radiofrequency ablation procedure for cardiac arrhythmia November 29, 2020 resolved June 10:32am [facility] Work Phone: 1(192) 998-394410-26-2021 Evaluation note* Diagnosis Onset Date Resolution Status Admit Date Atrial fibrillation/flutter December 25, 2020 chronic July 19, 2024 10:32am Central sleep apnea associated with atrial fibrillation chronic July 19, 2024 10:32am Chronic diastolic (congestive) heart failure chronic July 012024 10:32am Essential (primary) hypertension chronic July 19, 2024 10:32am History of radiofrequency ablation procedure for cardiac arrhythmia November 29, 2020 resolved June 10:32am Cellulitis of leg, right acute August 07, 2024 12:56pm Exertional dyspnea acute August 072024 12:56pm [facility] Work Phone: [phone] Evaluation note* Diagnosis Onset Date Resolution Status Admit Date Atrial fibrillation/flutter December 25, 2020 chronic July 19, 2024 10:32am Central sleep apnea associated with atrial fibrillation chronic July 19, 2024 10:32am Chronic diastolic (congestive) heart failure chronic July 012024 10:32am Essential (primary) hypertension chronic July 19, 2024 10:32am History of radiofrequency ablation procedure for cardiac arrhythmia November 29, 2020 resolved June 10:32am Cellulitis of leg, right acute August 07, 2024 12:56pm Exertional dyspnea acute August 072024 12:56pm Atrial fibrillation acute August 16, 2024 10:34am Atrial fibrillation/flutter December 25, 2020 chronic August 16, 2024 10:34am Central sleep apnea associated with atrial fibrillation chronic August 16, 2024 10:34am Chronic diastolic (congestive) heart failure chronic August 16, 2024 10:34am Essential (primary) hypertension chronic August 16, 2024 10:34am History of radiofrequency ablation procedure for cardiac arrhythmia November 29, 2020 resolved July 10:34am [facility] Work Phone: [phone] 127-373810-26-2021 Evaluation note* Diagnosis Onset Date Resolution Status Admit Date Atrial fibrillation/flutter December 25, 2020 chronic July 19, 2024 10:32am Central sleep apnea associated with atrial fibrillation chronic July 19, 2024 10:32am Chronic diastolic (congestive) heart failure chronic July 012024 10:32am Essential (primary) hypertension chronic July 19, 2024 10:32am History of radiofrequency ablation procedure for cardiac arrhythmia November 29, 2020 resolved June 10:32am Cellulitis of leg, right inactive August 07, 2024 12:56pm Exertional dyspnea inactive August 072024 12:56pm Atrial fibrillation/flutter December 25, 2020 chronic August 16, 2024 10:34am Central sleep apnea associated with atrial fibrillation chronic August 16, 2024 10:34am Chronic diastolic (congestive) heart failure chronic August 16, 2024 10:34am Essential (primary) hypertension chronic August 16, 2024 10:34am History of radiofrequency ablation procedure for cardiac arrhythmia November 29, 2020 resolved July 10:34am Cellulitis of leg, right inactive August 16, 2024 10:34am [facility] Work Phone: 1([phone] 545-331904-01-2021 NoteHNO ID: [id number] Author: Leonor Velez Service: ? Author Type: Physician Type: Progress Notes Filed: 05/31/2020 8:58 AM Note Text: VIRTUAL VISIT PROGRESS NOTE This is a virtual visit using Wal[employer] video visit. It required patient-provider interaction for [...] to ambulate. He was managed locally in [place] and underwent CONCETTA's which have offered significant [...] visit. I spent more than 20 minutes [id number] with the patient and over half the time was devoted to counseling and/or coordination of care. Leonor Velez, [facility]03-18-2021 NoteHNO ID: [id number] Author: Evelyn Hernandez (Pa) Service: ? Author Type: Physician Partition Making Machine Operator Type: Progress Notes Filed: 05/18/2020 1:54 PM [...] Fusion by Dr. Leonor Velez MD at [facility] CMT: Muscle relaxants Narcotics - Hydrocodone Injections at [facility] Studies (Reports unless indicated) 01/30/2020 - MRI [...] Evelyn Hernandez PA-C May 18, 2020 1:53 [facility]03-18-2021 NoteHNO ID: [id number] Author: Mariel TURNER Service: ? Author Type: ? Type: Progress Notes Filed: 05/18/2020 1:54 PM Note Text: Patient name: Richi Hu Are you being referred by a [place] for Spine Health Provider or Pain Management Provider at [facility]? No If answer is YES please schedule [...] the facility where the MRI/CT/myelogram was completed: [place] [address] MRI/CT/myelogram viewable in Epic: No If not, please provide [phone] to fax in imaging reports for review. Also, please inform patient to hand carry imaging disc to appointment. XR (spine) within 12 months: Yes If YES,? please ask for the name/address of the facility where the XR was completed: [place] [address] Requested provider (First and Last name): unknown [...] injections and/or physical therapy was completed Injections: [place] [address] Have you tried any other kinds of [...] [address] Leonor Velez [facility] [address] [place] [address] Additional Comments : [phone] HospitalEvjack hughston memorial hospitalation noteNo assessment information availableWMorrow County Hospital Work Phone: Evaluation note* Diagnosis Onset Date Resolution Status Essential (primary) hypertension chronic Paroxysmal atrial fibrillation [facility] Work Phone: Evaluation note* Diagnosis Onset Date Resolution Status Dyspnea acute Chronic diastolic (congestive) heart failure chronic Essential (primary) hypertension chronic Paroxysmal atrial fibrillation [facility] Work Phone: Evaluation note* Diagnosis Onset Date Resolution Status Dyspnea acute Chronic diastolic (congestive) heart failure chronic Essential (primary) hypertension chronic Paroxysmal atrial fibrillation chronic Impacted cerumen of both ears acute [facility] Work Phone: Hospital Discharge instructionsAmbulatory Orders* Electrophysiology Location: [facility] Work Phone: Summary Purpose Family History No Family History Records Found Relationship Condition Age at Onset Recorded Date/T lalo father Malignant neoplasm Unknown Advance Directives No Advanced Directives Records Found Advance Directive Response Recorded Date/ Time Advance Directives No December 25, 2020 10:23am Living Will No December 30 12:09am Power of Retail Parts Pro No December 30, 2021 12:09am Advance Directive Response Recorded Date/ Time Advance Directives No December 25, 2020 9:23am Living Will No December 29 11:09pm Power of Retail Parts Pro No December 29, 2021 11:09pm Advance Directive Response Recorded Date/ Time Advance Directives No January 10:34am Advance Directive Response Recorded Date/ Time Do you have a Healthcare Power of Retail [employer] Pro? No August 07, 2024 11:25am Advance Directives No January 10:34am Advance Directive Response Recorded Date/ Time Do you have a Healthcare Power of Retail Parts Pro? Yes August 07, 2024 1:58pm Advance Directives No January 10:34am Chief Complaint and Reason for Visit Chief Complaint Admit Date 8 M FU July 19, 2024 10:32 am CELLULITIS August 07, 2024 12:56 pm Reason for Visit Admit Date Atrial fibrillation/flutter July 19 10:32am 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 July 19, 2024 10:32am Chronic diastolic (congestive) heart jane lure July 19, 2024 10:32am Essential (primary) hypertension June 10:32am History of radiofrequency ab lation procedure for cardiac arrhythmia July 19, 2024 10:32am Chief Complaint abdominal pain Chief Complaint abdominal [...] M FU July 19, 2024 10:32 am Chief Complaint Admit Date 6 M FU July 19, 2024 10:32 am CELLULITIS August 07, 2024 12:56 pm Cellulitis August 07, 2024 3:07p m Cellulitis August 08, 2024 7:28p m Cellulitis August 09, 2024 7:09 pm Reason for Visit Admit Date Atrial fibrillation/flutter July 19 10:32am 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 July 19, 2024 10:32am Chronic diastolic (congestive) heart jane lure July 19, 2024 10:32am Essential (primary) hypertension June 10:32am History of radiofrequency ab lation procedure for cardiac arrhythmia July 19, 2024 10:32am Cellulitis of leg, right August 07, 2024 12:56pm Exertional dyspnea August 07, 2024 12:56 pm Chief Complaint Admit Date 6 M FU July 19, 2024 10:32 am CELLULITIS August 07, 2024 12:56 pm Cellulitis August 07, 2024 3:07p m Cellulitis August 08, 2024 7:28p m Cellulitis August 09, 2024 7:09 pm Cellulitis August 10, 2024 12:0 6pm S/P H /10 EDEMA August 16, 2024 10:3 4am Reason for Visit Admit Date Atrial fibrillation/flutter July 19 10:32am 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 July 19, 2024 10:32am Chronic diastolic (congestive) heart jane lure July 19, 2024 10:32am Essential (primary) hypertension June 10:32am History of radiofrequency ab lation procedure for cardiac arrhythmia July 19, 2024 10:32am Cellulitis of leg, right August 07, 2024 12:56pm Exertional dyspnea August 07, 2024 12:56 pm Atrial fibrillation August 16, 2024 10:3 4am Atrial fibrillation/flutter August 16, 2 025 10:34am 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 August 16, 2024 10:34am Chronic diastolic (congestive) heart jane lure August 16, 2024 10:34am Essential (primary) hypertension August 162024 10:34am History of radiofrequency ab lation procedure for cardiac arrhythmia August 16, 2024 10:34am Chief Complaint Admit Date 6 M FU July 19, 2024 10:32 am CELLULITIS August 07, 2024 12:56 pm Cellulitis August 07, 2024 3:07p m Cellulitis August 08, 2024 7:28p m Cellulitis August 09, 2024 7:09 pm Cellulitis August 10, 2024 12:0 6pm S/P [facility] /10 EDEMA August 16, 2024 10:3 4am OTHER SPECIFIED SOFT TISSUE DISORDERS Ju ne 2024 1:11pm Reason for Visit Admit Date Atrial fibrillation/flutter July 19 10:32am 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 July 19, 2024 10:32am Chronic diastolic (congestive) heart jane lure July 19, 2024 10:32am Essential (primary) hypertension June 10:32am History of radiofrequency ab lation procedure for cardiac arrhythmia July 19, 2024 10:32am Cellulitis of leg, right August 07, 2024 12:56pm Exertional dyspnea August 07, 2024 12:56 pm Atrial fibrillation/flutter August 16, 025 10:34am 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 August 16, 2024 10:34am Chronic diastolic (congestive) heart jane lure August 16, 2024 10:34am Essential (primary) hypertension August 162024 10:34am History of radiofrequency ab lation procedure for cardiac arrhythmia August 16, 2024 10:34am Cellulitis of leg, right August 16, 2024 10:34am Chief Complaint Admit Date 6 M FU July 19, 2024 10:32 am CELLULITIS August 07, 2024 12:56 pm Cellulitis August 07, 2024 3:07p m Cellulitis August 08, 2024 7:28p m Cellulitis August 09, 2024 7:09 pm Cellulitis August 10, 2024 12:0 6pm S/P [facility] /10 EDEMA August 16, 2024 10:3 4am OTHER SPECIFIED SOFT TISSUE DISORDERS Ju ne 2024 1:11pm RLE EDEMA August 16, 2024 1:32 pm DYSPNEA, UNSPECIFIED August 25, 2024 1:0 3pm Amb Documentation August 26, 2024 9:07 am Additional Source Comments (unrecognized sect ion and content) No Status Records FoundNo Status Records FoundNo Status Records FoundNo Status Records FoundNo Status Records FoundNo Status Records Found INFORMATION SOURCE (unrecogn ized section and content) DATE CREATED AUTHOR 05/08/2020 [facility] ([place]) DATE CREATED AUTHOR AUTHOR'S ORGANIZ ATION 04/04/2021 [facility] DATE CREATED AUTHOR AUTHOR'S ORGANIZ ATION 04/07/2022 [facility] [place] DATE CREATED AUTHOR AUTHOR'S ORGANIZ ATION 05/28/2022 [facility] DATE CREATED AUTHOR AUTHOR'S ORGANIZ ATION 06/07/2022 [facility] [place] DATE CREATED AUTHOR AUTHOR'S ORGANIZ ATION 09/19/2024 [facility] Goals (unrecognized section and content) Goals [...] Bravo MD Primary Care Provider Active Susie MUSA, PA Attending Provider, Referr ing Provider Active [...] Status: Inactive Member Role Status Dates Dr. Tiarar Bravo MD Primary Care Provider, Referrin g [...] 2024 End: July 19, 2024 Taylor Patel KEY WORKER, KEY WORKER-C Attending Provider Active Start: July 19, 2024 End: July 19, 2024 Dr. Omid Colindres MD Primary Care Provider Active Start: July 19, 2024 End: July 19, 2024 Team Status: Active Member Role Status Dates Dr. Omid Colindres MD Primary Care Provider Active Start: August 07, 2024 Dr. David Stallworth DO Referring Provider Active S tart: August 07, 2024 Dr. David Stallworth DO Emergency Provider Active S tart: August 07, 2024 Dr. Seb Cortes DO Admit Provider Active S tart: August 07, 2024 Dr. Seb Cortes DO Attending Provider Active Start: August 07, 2024 Team Status: Inactive Member Role Status Dates Dr. Omid Colindres MD Primary Care Provider Active Start: August 07, 2024 End: August 10, 2024 Dr. David Stallworth , DO Referring Provider Active S tart: August 07, 2024 End: August 10, 2024 Dr. David Stallworth , DO Emergency Provider Active S tart: August 07, 2024 End: August 10, 2024 Dr. Seb Cortes , DO Admit Provider Active S tart: August 07, 2024 End: August 10, 2024 Dr. Seb Cortes , DO Attending Provider Active Start: August 07, 2024 End: August 10, 2024 Team Status: Active Member Role Status Dates Dr. Omid Colindres MD Primary Care Provider Active Start: August 07, 2024 Dr. David Stallworth , DO Referring Provider Active S tart: August 07, 2024 Dr. David Stallworth , DO Emergency Provider Active S tart: August 07, 2024 Dr. Seb Cortes , DO Admit Provider Active S tart: August 07, 2024 Dr. Seb Cortes , DO Attending Provider Active Start: August 07, 2024 Dr. Seb Cortes , DO Other Provider Active S tart: August 07, 2024 Team Status: Active Member Role Status Dates Dr. Omid Colindres MD Primary Care Provider Active Start: August 08, 2024 Dr. David Stallworth , DO Referring Provider Active S tart: August 08, 2024 Dr. David Stallworth , DO Emergency Provider Active S tart: August 08, 2024 Dr. Seb Cortes , DO Admit Provider Active S tart: August 08, 2024 Dr. Seb Cortes , DO Attending Provider Active Start: August 08, 2024 Dr. Seb Cortes , DO Other Provider Active S tart: August 08, 2024 Team Status: Active Member Role Status Dates Dr. Omid Colindres MD Primary Care Provider Active Start: August 09, 2024 Dr. David Stallworth , DO Referring Provider Active S tart: August 09, 2024 Dr. David Stallworth , DO Emergency Provider Active S tart: August 09, 2024 Dr. Seb Cortes , DO Admit Provider Active S tart: August 09, 2024 Dr. Seb Cortes , DO Attending Provider Active Start: August 09, 2024 Dr. Seb Cortes , DO Other Provider Active S tart: August 09, 2024 Team Status: Active Member Role Status Dates Dr. Omid Colindres MD Primary Care Provider Active Start: August 07, 2024 Dr. David Stallworth , DO Emergency Provider Active S tart: August 07, 2024 Dr. Seb Cortes , DO Admit Provider Active S tart: August 07, 2024 Dr. Seb Cortes , DO Attending Provider Active Start: August 07, 2024 Dr. Seb Cortes , DO Other Provider Active S tart: August 07, 2024 Team Status: Active Member Role Status Dates Dr. Omid Colindres MD Primary Care Provider Active Start: August 08, 2024 Dr. David Stallworth , DO Emergency Provider Active S tart: August 08, 2024 Dr. Seb Cortes , DO Admit Provider Active S tart: August 08, 2024 Dr. Seb Cortes , DO Attending Provider Active Start: August 08, 2024 Dr. Seb Cortes , DO Other Provider Active S tart: August 08, 2024 Team Status: Active Member Role Status Dates Dr. Omid Colindres MD Primary Care Provider Active Start: August 09, 2024 Dr. David Stallworth , Emergency Provider Active S tart: August 09, 2024 Dr. Seb Cortes , DO Admit Provider Active S tart: August 09, 2024 Dr. Seb Cortes , DO Attending Provider Active Start: August 09, 2024 Dr. Seb Cortes , DO Other Provider Active S tart: August 09, 2024 Team Status: Active Member Role Status Dates Dr. Omid Colindres MD Primary Care Provider Active Start: August 10, 2024 Dr. David Stallworth , Referring Provider Active S tart: August 10, 2024 Dr. David Stallworth , DO Emergency Provider Active S tart: August 10, 2024 Dr. Seb Cortes , DO Admit Provider Active S tart: August 10, 2024 Dr. Seb Cortes , DO Attending Provider Active Start: August 10, 2024 Dr. Seb Cortes , DO Other Provider Active S tart: August 10, 2024 Team Status: Inactive Member Role Status Dates Dr. Omid Colindres MD Primary Care Provider Active Start: August 16, 2024 End: August 16, 2024 Dr. Omid Colindres MD Referring Provider Active Start: August 16, 2024 End: August 16, 2024 Taylor Patel KEY WORKER, KEY WORKER-C Attending Provider Active Start: August 16, 2024 End: August 16, 2024 Team Status: Active Member Role Status Dates Dr. Omid Colindres MD Primary Care Provider Active Start: August 16, 2024 Taylor Patel KEY WORKER, KEY WORKER-C Attending Provider Active Start: August 16, 2024 Taylor Patel KEY WORKER, KEY WORKER-C Referring Provider Active Start: August 16, 2024 Team Status: Inactive Member Role Status Dates Dr. Omid Colindres MD Primary Care Provider Active Start: August 16, 2024 End: August 16, 2024 Dr. Leonor Aldrich MD Attending Provider Active Start: August 16, 2024 End: August 16, 2024 Dr. Leonor Aldrich MD Referring Provider Active Start: August 16, 2024 End: August 16, 2024 Team Status: Inactive Member Role Status Dates Dr. Omid Colindres MD Primary Care Provider Active Start: August 16, 2024 End: August 16, 2024 Taylor Patel KEY WORKER, KEY WORKER-C Attending Provider Active Start: August 16, 2024 End: August 16, 2024 Taylor Patel KEY WORKER, KEY WORKER-C Referring Provider Active Start: August 16, 2024 End: August 16, 2024 Team Status: Active Member Role/Relationship Status Dates Dr. Omid Colindres MD Primary Care Provider Active Team Status: Inactive Member Role/Relationship Status Dates Dr. Tiarra Bravo MD Referring Provider Active Start: July 19, 2024 End: July 19, 2024 Taylor Patel KEY WORKER, KEY WORKER-C Attending Provider Active Start: July 19, 2024 End: July 19, 2024 Dr. Omid Colindres MD Primary Care Provider Active Start: July 19, 2024 End: July 19, 2024 Team Status: Inactive Member Role/Relationship Status Dates Dr. Omid Colindres MD Primary Care Provider Active Start: August 07, 2024 End: August 10, 2024 Dr. David Stallworth DO Referring Provider Active S tart: August 07, 2024 End: August 10, 2024 Dr. David Stallworth DO Emergency Provider Active S tart: August 07, 2024 End: August 10, 2024 Dr. Seb Cortes , Admit Provider Active S tart: August 07, 2024 End: August 10, 2024 Dr. Seb Cortes , DO Attending Provider Active Start: August 07, 2024 End: August 10, 2024 Team Status: Active Member Role/Relationship Status Dates Dr. Omid Colindres MD Primary Care Provider Active Start: August 07, 2024 Dr. David Stallworth , DO Emergency Provider Active S tart: August 07, 2024 Dr. Seb Cortes , DO Admit Provider Active S tart: August 07, 2024 Dr. Seb Cortes , DO Attending Provider Active Start: August 07, 2024 Dr. Seb Cortes , DO Other Provider Active S tart: August 07, 2024 Team Status: Active Member Role/Relationship Status Dates Dr. Omid Colindres MD Primary Care Provider Active Start: August 08, 2024 Dr. David Stallworth , DO Emergency Provider Active S tart: August 08, 2024 Dr. Seb Cortes , DO Admit Provider Active S tart: August 08, 2024 Dr. Seb Cortes , DO Attending Provider Active Start: August 08, 2024 Dr. Seb Cortes , DO Other Provider Active S tart: August 08, 2024 Team Status: Active Member Role/Relationship Status Dates Dr. Omid Colindres MD Primary Care Provider Active Start: August 09, 2024 Dr. David Stallworth , DO Emergency Provider Active S tart: August 09, 2024 Dr. Seb Cortes , DO Admit Provider Active S tart: August 09, 2024 Dr. Seb Cortes , DO Attending Provider Active Start: August 09, 2024 Dr. Seb Cortes , DO Other Provider Active S tart: August 09, 2024 Team Status: Active Member Role/Relationship Status Dates Dr. Omid Colindres MD Primary Care Provider Active Start: August 10, 2024 Dr. David Stallworth , DO Emergency Provider Active S tart: August 10, 2024 Dr. Seb Cortes , DO Admit Provider Active S tart: August 10, 2024 Dr. Seb Cortes , DO Attending Provider Active Start: August 10, 2024 Dr. Seb Cortes , DO Other Provider Active S tart: August 10, 2024 Team Status: Inactive Member Role/Relationship Status Dates Dr. Omid Colindres MD Primary Care Provider Active Start: August 16, 2024 End: August 16, 2024 Dr. Omid Colindres MD Referring Provider Active Start: August 16, 2024 End: August 16, 2024 Taylor Patel KEY WORKER, KEY WORKER-C Attending Provider Active Start: August 16, 2024 End: August 16, 2024 Team Status: Inactive Member Role/Relationship Status Dates Dr. Omid Colindres MD Primary Care Provider Active Start: August 16, 2024 End: August 16, 2024 Taylor Patel KEY WORKER, KEY WORKER-C Attending Provider Active Start: August 16, 2024 End: August 16, 2024 Taylor Patel NP, KEY WORKER-C Referring Provider Active Start: August 16, 2024 End: August 16, 2024 Team Status: Inactive Member Role/Relationship Status Dates Dr. Omid Colindres MD Primary Care Provider Active Start: August 16, 2024 End: August 16, 2024 Dr. Leonor Aldrich MD Attending Provider Active Start: August 16, 2024 End: August 16, 2024 Dr. Leonor Aldrich MD Referring Provider Active Start: August 16, 2024 End: August 16, 2024 Team Status: Active Member Role/Relationship Status Dates Dr. Adi Navas MD Attending Provider Active Start: August 16, 2024 Dr. Leonor Aldrich MD Referring Provider Active Start: August 16, 2024 Team Status: Inactive Member Role/Relationship Status Dates Dr. Omid Colindres MD Primary Care Provider Active Start: August 25, 2024 End: August 25, 2024 Taylor Patel NP, KEY WORKER-C Attending Provider Active Start: August 25, 2024 End: August 25, 2024 Taylor Patel NP, KEY WORKER-C Referring Provider Active Start: August 25, 2024 End: August 25, 2024 Team Status: Active Member Role/Relationship Status Dates Dr. Omid Colindres MD Primary Care Provider Active Start: August 25, 2024 Dr. Terell Shore MD Attending Provider Active S tart: August 25, 2024 Team Status: Active Member Role/Relationship Status Dates Dr. Omid Colindres MD Primary Care Provider Active Start: August 26, 2024 Taylor Patel KEY WORKER, KEY WORKER-C Attending Provider Active Start: August 26, 2024 FOR RECORDS PERTAINING TO PATIENTS WHO [...] BE BASED ON THE PRIMARY CLINICAL RECORDS. [facility]. provides no warranty or guarantee of the accuracy or completeness of information in this document.
[2024-09-21 20:53] LABS: AST(SGOT) 29 U/L (<=37); Alanine Aminotransfer ALT/SGPT 20 U/L (<=46); Albumin, Serum 3.9 g/dL (3.4-4.8); Alkaline Phosphatase 96 U/L (40-129); Anion Gap 12 (5-15); BUN 15 mg/dL (4-19); BUN/Creat Ratio 17.2 RATIO (10-20); Calcium,Total 9.3 mg/dL (7.6-11.0); Carbon Dioxide 25.3 mmol/L (21.0-32.0); Chloride 100 mmol/L (98-108); Cholesterol 159 mg/dL (<=200); Globulin 3.2 g/dL (2.2-4.2); Glucose 107 mg/dL (70-99); Low Density Lipoprotein Calc. 76 mg/dL; Magnesium 2.2 mg/dL (1.5-2.2); Potassium 3.6 mmol/L (3.3-5.1); Triglycerides 276 mg/dL; Very Low Density Lipoprotein 55 mg/dL (5-40); Vitamin D,25 Hydroxy 59.6 ng/mL (30-100); cholesterol:hdl ratio screen 5.74
[2024-09-21 21:37] LABS: Color, Urine Yellow (Yellow); Glucose, Dipstick Normal (Normal); Ketone-Dipstick Negative (Negative); Leukocyte Esterase-Dipstick Negative /ul (Negative); Nitrite-Dipstick Negative (Negative); Occult Blood-Urine Negative /ul (Negative); Protein-Dipstick Negative (Negative); Specific Gravity, Urine 1.020 (1.002-1.030); Urine Bilirubin Dipstick Negative (Negative)
[2024-09-23 16:09] LABS: Thyroglobulin, Serum Qt. 4.2 ng/mL (1.4-29.2)
== END 2024-09-21 23:59 | disposition home or self-care (01) ==
LOC: MFPLAB 15:11
PROVIDERS: PCP Family Medicine; Referring Provider Family Medicine; Visit Provider Family Medicine
DX: I10 Essential (primary) hypertension (principal); I48.91 Unspecified atrial fibrillation; E04.1 Nontoxic single thyroid nodule; R73.01 Impaired fasting glucose; E55.9 Vitamin D deficiency, unspecified
CPT/HCPCS: 36415; 80053; 80061; 81001; 82306; 83036; 83735; 84432; 84439; 84443; 85025; 86376; 86800

== ENCOUNTER → 2024-09-28 | Outpatient (CLI) | payer OTHER, SELFPAY ==
--- NOTE | 2024-09-28 12:54 | US_ITS ---
PROCEDURE: THYROID 09/28/2024 REASON FOR EXAM: NODULE TECHNIQUE: THYROID COMPARISON: None FINDINGS: Right thyroid lobe size: 5.4 cm x 2.4 cm x 1.5 cm Left thyroid lobe size: 4.7 cm 1.6 cm 1.7 cm Isthmus: 0.4 cm Background parenchymal echotexture is homogeneous. Nodules: There are 3 subcentimeter cysts in the right lobe of the thyroid. 1.4 cm 1.1 cm x 0.8 cm hypoechoic solid nodule in the left lobe of the thyroid. This is heterogeneous. TI-RADS category 3. There are 2, subcentimeter cystic nodules in the lower lobe. US/Thyroid IMPRESSION: Bilateral cystic nodules as described. Dominant 1.4 cm x 1.1 cm x 0.8 cm hypoechoic solid nodule in the left lobe of t he thyroid as described. TI-RADS category 3. Tissue diagnosis recommended. RECOMMENDATION: Based on most suspicious nodule. Nodule size = largest diameter Only evaluate nodule if =>5 mm. Growth > 20% in 2 dimensions = worsening. Follow up to 4 nodules. Recommend biopsy for no more than 2 nodules. Reading Location: [place]
== END | disposition home or self-care (01) ==
LOC: US 12:54
PROVIDERS: PCP Family Medicine; Referring Provider Family Medicine; Visit Provider Family Medicine
DX: E04.1 Nontoxic single thyroid nodule (principal)
CPT/HCPCS: 76536

== ENCOUNTER → 2024-11-25 | Outpatient (CLI) | payer OTHER, SELFPAY ==
--- OUTSIDE RECORDS SUMMARY | 2024-11-25 12:09 | XMS RPT_ITS | CCD ---
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 Tiarra Bravo Primary Care Provider Dr. Tiarra Bravo Referring Provider [phone] Terell Shore Attending Provider Tiarra Bravo Unavailable UNKNOWN, PCP Primary Care Unavailable Aliya, Dr. Jerrell Osorio Referring Unavaila MD BEBETO Andersen Attending Unavailable Adolfo Enriquez Admitting Unavailable Dr. Tiarra Bravo Primary Care Unavail able DinaryArgelia Admitting Unavailable DinaryArgelia Attending Unavailable Pollo Fazel Referring Unavailable Dr. Tiarra Bravo Primary Care Provider Dr. Tiarra Bravo Referring Provider DIMPLE Roldan Attending Provider Dr. Terell Shore Attending Provider DIMPLE Roldan Referring Provider DIMPLE Dejesus Attending Provider Dr. Tiarra Bravo MD Primary Care Provider Dr. Demetria Varela MD Attending Provider Dr. Demetria Varela MD Referring Provider Dr. Tiarra Bravo MD Referring Provider Taylor Sosa Attending Provider Dr. Omid Colindres MD Primary Care Provider [phone] Dr. David Stallworth DO Referring Provider Basim DO, Dr. Hernandez Emergency Provider Sebastian HOLLIS, Dr. Grigsby Admit Provider Sebastian HOLLIS, Dr. Grigsby Attending Provider Sebastian DO, Dr. Grigsby Other Provider Jens BUNN, Dr. Anne Referring Provider Jorge MACHINE APPLICATOR CEMENTER-CTaylor Referring Provider [phone] Valdemar BUNN, Dr. Leonor Cancino Attending Provider [phone] Valdemar BUNN, Dr. Leonor Cancino Referring Provider Eloise BUNN, Dr. Adi May Attending Provider Silviano BUNN, Dr. Figueredo Attending Provider Valdemar BUNN, Dr. Leonor Cancino Primary Care Provider Unavailable Primary Care Provider Unavailwaldemar Aldrich MD, Leonor Cancino Primary Care Provider PROVIDER, UNKNOWN Admitting Unavailable PROVIDER, UNKNOWN Attending Unavailable LEONOR ALDRICH Primary Care Unavailable AXEL MARQUIS Attending Unavailable LEONOR ALDRICH Primary Care Unavailable AXEL MARQUIS Attending Unavailable AXEL MARQUIS Attending Unavailable Bob Gibson Attending Unavailable Jolliff, Tiarra S Primary Care Unavailable Silviano, Lynn Referring Unavailable Silviano, Lynn Consulting Unavailable Jolliff, Tiarra S Primary Care Unavailable Silviano, Lynn Consulting Unavailable Silviano, Terell Attending Unavailable Silviano, Lynn Referring Unavailable Jolliff, Tiarra S Referring Unavailable Taylor Patel NP Attending Unavailable Omid Colindres Primary Care Unavailable Susie Roldan Attending Unavail able Jolliff, Tiarar S Primary Care Unavailable Jolliff, Tiarra S Referring Unavailable Jolliff, Tiarra S Primary Care Unavailable BasaliDemetria Attending Unavailable Basali, Ayman Referring Unavailable Jolliff, Tiarra S Primary Care Unavailable Jolliff, Tiarra S Attending Unavailable Susie Roldan Attending Unavail able Jolliff, Tiarra S Primary Care Unavailable Basali, Laurelman Attending Unavailable Basali, Ayman Referring Unavailable Jolliff, Tiarra S Primary Care Unavailable Jolliff, Tiarra S Primary Care Unavailable Silviano, Terell Attending Unavailable Silviano, Lynn Referring Unavailable Jorge MAHONEY, Taylor Attending Unavailable Colindres, Omid Primary Care Unavailable Ungur, Remus Referring Unavailable Seb Cortes Consulting Unavailable Seb Cortes Attending Unavailable Seb Cortes Admitting Unavailable Colindres, Omid Primary Care Unavailable Jorge MAHONEY, Taylor Attending Unavailable Colindres, Omid Referring Unavailable Colindres, Omid Primary Care Unavailable Schinner, Leonor E Attending Unavailable Schinner, Leonor E Referring Unavailable Schinner, Leonor E Primary Care Unavailable Schinner, Leonor E Referring Unavailable Schinner, Leonor E Primary Care Unavailable Schinner, Leonor E Attending Unavailable Schinner, Leonor E Referring Unavailable Schinner, Leonor E Primary Care Unavailable Schinner, Leonor E Attending Unavailable Taylor Patel NP Referring Unavailable Jorge MACHINE APPLICATOR CEMENTER, Taylor Attending Unavailable Colindres, Omid Primary Care Unavailable Ungur, Remus Referring Unavailable Colindres, Omid Primary Care Unavailable Termissael, Seb Admitting Unavailable Sebastian, Seb Attending Unavailable Florinda MUSA, Susie Moreno Attending Unavail able Jolliff, Tiarra S Referring Unavailable Jolliff, Tiarra S Primary Care Unavailable Schinner, Leonor E Attending Unavailable Schinner, Leonor E Referring Unavailable Colindres, Omid Primary Care Unavailable Jorge MAHONEY, Taylor Attending Unavailable Jorge MACHINE APPLICATOR CEMENTER, Taylor Referring Unavailable Colindres, Omid Primary Care Unavailable Schinner, Leonor E Primary Care Unavailable Jorge MAHONEY, Taylor Attending Unavailable Colindres, Omid Primary Care Unavailable Silviano, Lynn Attending Unavailable Schinner, Leonor E Referring Unavailable Schinner, Leonor E Primary Care Unavailable Jorge MAHONEY, Taylor Attending Unavailable AR GUILLERMO Attending Unavailable SELF, SELF Referring Unavailable JOLLIFF, TIARRA S Primary Care Unavailable Allergies Allergy Classification Reported Allergen(s) Allergy Type Date of Onset Reaction(s) Facility (20 sources) Penicillins; Translations: [PENICILLINS] Allergy to substance 5 [facility] (20 sources) Sulfonamides (Antibiotic); Translations: [SULFA (SULFONAMIDE ANTIBIOTICS)] Allergy to substance [address] [facility] (2 sources) Penicillins; Translations: [Penicillins] Allergy to drug (finding) [facility] Work Phone: (2 sources) Sulfonamides (Antibiotic); Translations: [Sulfa Drugs] Allergy to drug (finding) [facility] Work Phone: (5 sources) cefdinir Drug Allergy 5 [facility] (5 sources) Penicillins Propensity to adverse reactions 5 [facility] Work Phone: (5 sources) Sulfonamides (Antibiotic) Propensity to adverse reactions 5 [facility] (1 source) cefdinir Drug Allergy 5 [facility] (1 source) Penicillins Drug allergy (disorder) 5 [facility] (1 source) Sulfonamides (Antibiotic) Drug allergy (disorder) 5 [facility] Medications Current Medications Medication Drug Class(es) Dates Sig (Normalized) Sig (Original) acetaminophen 325 mg / traMADol hydrochloride 37.5 mg oral tablet (5 sources) Opioid Agonist Start: 08-13-2004 ULTRACET 37.5 MG-325 MG ORAL TAB as needed 0 08/13/2004 Active cholecalciferol 0.025 mg oral capsule (20 sources) [...] 17, 2016 12:00am July 25, 2017 10:08am take 1 capsule by [facility] every week cholecalciferol, Vitamin D3, (VITAMIN D3) 1,250 mcg (50,000 unit) cap capsule Take 50,000 Units by mouth one time a week. Active diclofenac sodium 75 mg delayed release oral tablet (5 sources) Nonsteroidal Anti-inflammatory Drug Start: 08-13-2004 VOLTAREN 75 MG OR AL TBEC as needed 0 08/13/2004 Active furosemide 40 mg oral tablet (20 sources) Loop Diuretic Start: 08-10-2024 Furosemide (La six) 40 mg tablet Active 60 mg PO TWICE A DAY 90 August 10, 2024 12:00am Start: 05-04-2018 End: 08-10-2024 take 1 tablet by mouth once daily Furosemide 40 mg tablet Discontinued 40 mg PO DAILY 90 July 28, 2024 9:26am August 10, 2024 11:51am 12 hr hyoscyamine sulfate 0.375 mg extended release oral tablet (5 sources) Start: 08-13-2004 take 1 tablet by mouth twice daily LEVBID 0.375 MG ORAL TB12 Indications: Abdominal pain, unspecified site , Irritable bowel syndrome take 1 tab by mouth 2 times per day 60 5 08/13/2004 Active latanoprost 0.05 mg/ml ophthalmic solution (20 sources) [...] 29, 2019 12:00am April 25, 2020 4:11pm Start: 01-29-2019 take 1 drop(s) into the eye(s) once daily at bedtime latanoprost (XALATAN) 0.005 % ophthalmic solution Use 1 drop in both eyes daily at bedtime. 01/29/2019 Active take 1 drop(s) into the eye(s) at bedtime Latanoprost 0.005 % Ophthalmic Solution INSTILL 1 DROP IN BOTH EYES AT BEDTIME. Quantity: 0 Refills: 0 Ordered: 10-Jan-2022 DO Active losartan potassium 50 mg oral tablet (20 sources) Angiotensin 2 Receptor Brianna Start: 04-20-2023 End: 07-28-2024 take 1 tablet by mouth once daily losartan (COZAAR) 50 mg tablet Take 50 mg by mouth once daily. 07/27/2024 Active magnesium aspart,citrate,ox mikey 400 mg magnesium cap (5 sources) take 1 capsule by mouth once daily magnesium aspart,citrate,ox mikey 400 mg magnesium cap Take 1 capsule by mouth once daily. Suspended take 1 capsule by mouth once trever ly magnesium aspart,citrate,oxide 400 mg magnesium cap Take 1 capsule by mouth once daily. Active mecobalamin 5 mg disintegrating oral tablet (5 sources) Start: 07-25-2017 take 1 tablet by mouth once daily mecobalamin, vitamin B12, 5,000 mcg ODT Take 1 tablet by mouth once daily. 07/25/2017 Active Multivitamin (Multiple Vitamins) tablet (19 sources) Start: 07-25-2020 Multivitamin ( Multiple Vitamins) [...] TABLET PO DAILY July 25, 2020 12:00am mv-min/folic/K1/lycopen/lute in (CENTRUM SILVER MEN PO) (5 sources) take 1 tablet by mouth once daily mv-min/folic/K1/lycopen/lutein (CENTRUM SILVER MEN PO) Take 1 tablet by mouth once daily. Suspended take 1 tablet by keaton th once daily mv-min/folic/K1/lycopen/lutein (CENTRUM SILVER MEN PO) Take 1 tablet by mouth once daily. Active potassium chloride 10 meq extended release oral tablet (7 sources) Start: 08-10-2024 Potassium Chloride (Klor-Con 10) 10 mEq tablet extended release Active 20 meq PO DAILY 60 0 August 10, 2024 12:00am rifAXIMin 200 mg oral tablet (5 sources) Rifamycin Antibacterial Start: 08-13-2004 XIFAXAN 200 MG ORAL TAB as needed 0 08/13/2004 Active rivaroxaban 20 mg oral tablet (20 sources) Factor Xa Inhibitor Start: 05-10-2018 End: 07-27-2024 take 1 tablet by mouth once daily rivaroxaban (XARELTO) 20 mg tablet Take 20 mg by mouth once daily. 05/10/2018 Active Xarelto 20 MG Or al Tablet Quantity: 0 Refills: 0 Ordered: 10-Jan-2022 DO Active traMADol hydrochloride 50 mg oral tablet (16 sources) Opioid Agonist Start: 07-15-2022 take 1 tablet by mouth four times daily as needed for pain Tramadol 50 mg tablet Active 50 mg PO ONCE as needed for pain July 15, 2022 12:00am Takes 4 times daily as needed Vitamin B Complex tablet (9 sources) Start: 07-09-2023 Vitamin B Complex tablet Active [...] 1 TABLET PO EVERY 8 HOURS 10 3 January 03, 2019 January 09, 2019 12:10am [...] 24, 2014 12:00am February 09, 2014 8:01am [id number] 60 actuat albuterol 0.09 mg/actuat metered dose inhaler (19 sources) beta2-Adrenergic Agonist Start: 05-02-2018 End: 05-26-2018 [...] 02, 2018 1:00am May 04, 2018 12:17pm [facility] Start: 04-03-2015 End: 07-25-2017 take 1 tablet by mouth once daily Aspirin 81 MG tablet,chewable Discontinued 81 mg PO DAILY@0800 April 03, 2015 1:00am July 25, 2017 10:07am cefdinir 300 mg oral capsule (7 sources) Cephalosporin Antibacterial Start: 08-10-2024 End: 08-16-2024 take 1 capsule by mouth twice daily Cefdinir 300 mg capsule Discontinued 300 mg PO TWICE A DAY 14 0 August 10, 2024 12:00am August 16, 2024 2:56pm start today celecoxib 200 mg oral capsule (19 sources) Nonsteroidal Anti-inflammatory Drug Start: 11-18-2016 End: 07-25-2017 take 1 capsule by mouth twice daily Celecoxib 200 MG capsule Discontinued 200 mg PO TWICE A DAY 14 0 November 18, 2016 12:00am July 25, 2017 10:07am codeine phosphate 2 mg/ml / promethazine hydrochloride 1.25 mg/ml oral solution (19 sources) Opioid Agonist, Phenothiazine Start: 05-02-2018 End: [...] 2:35pm cyclobenzaprine hydrochloride 10 mg oral tablet (19 sources) Muscle Relaxant Start: 05-06-2020 End: 07-03-2021 take 1 tablet by mouth twice daily as needed for pain Cyclobenzaprine 10 MG tablet Discontinued 10 mg PO TWICE DAILY NEEDED as needed for back pain May 06, 2020 1:00am July 03, 2021 1:03pm dexamethasone 6 mg oral tablet (19 sources) Corticosteroid Start: 03-10-2020 End: 03-20-2020 take [...] hydrochloride 120 mg extended release oral tablet (19 sources) alpha-Adrenergic Agonist Start: 05-02-2018 End: 05-26-2018 Pseudoephedrine-Guaifenesin 1 EACH tablet extended release 12 hr Discontinued 1 NMA PO NEEDED as needed for Congestion May 02, 2018 1:00am May 26, 2018 3:35pm Start: 05-02-2018 End: 05-26-2018 Pseudoephedrine-Guaifenesin Discontinued 1 EACH PO NEEDED May 02, 2018 12:00am May 26, 2018 2:35pm hydrocortisone 10 mg/ml / neomycin 3.5 mg/ml / polymyxin b [id number] unt/ml otic suspension (19 sources) Aminoglycoside Antibacterial, Polymyxin-class Antibacterial, Corticosteroid Start: 12-10-2019 End: 12-20-2019 Geeajzow-Enjjagyjr-Dh 3.5-10,000-1 mg/mL-unit/mL-% drops,suspension Discontinued 3 NMA OTIC Q4H 10 10 0 December 10, 2019 12:00am December 19, 2019 12:00am December 20, 2019 12:03am apply to (cotton) wick; replace wick every 24 hours Start: 12-10-2019 End: 12-20-2019 Xlteuxia-Rdjymhepu-Ks Discon tinued 3 DRP OTIC Q4H 10 10 December 09, 2019 11:00pm December 19, [...] 2013 12:00am May 04, 2018 12:13pm HTN magnesium oxide 400 mg oral tablet (20 [...] 2014 9:01am methylPREDNISolone 4 mg oral tablet (19 sources) Corticosteroid Start: 11-18-2016 End: 07-25-2017 Methylprednisolone 4 MG tablet Discontinued 4 mg PO DIRECTED 1 0 November 18, 2016 12:00am July 25, 2017 10:07am metoprolol tartrate 50 mg oral tablet (20 sources) beta-Adrenergic Brianna Start: 05-04-2018 End: 12-02-2020 take 1 tablet by mouth twice daily Metoprolol Tartrate 50 mg tablet Discontinued 50 mg PO TWICE A DAY 180 4 September 24, 2020 2:30pm December 02, 2020 1:14pm Multivitamin 1 EACH tablet (9 sources) Start: 04-03-2015 End: 12-10-2019 Multivitamin 1 [...] pantoprazole 40 mg delayed release oral tablet (19 sources) Proton Pump Inhibitor Start: 12-02-2020 End: 07-03-2021 take 1 tablet by mouth once daily Pantoprazole 40 mg tablet,delayed release (DR/EC) Discontinued 40 mg PO DAILY December 02, 2020 12:00am July 03, 2021 1:02pm predniSONE 20 mg oral tablet (19 sources) Start: 05-02-2018 End: 05-04-2018 take 1 tablet by mouth once daily Prednisone 20 MG tablet Discontinued 20 mg PO DAILY May 02, 2018 1:00am May 04, 2018 12:14pm bronchitis sacubitril 49 mg / valsartan 51 mg oral tablet (12 sources) Angiotensin 2 Receptor Brianna Start: 02-05-2023 End: 04-20-2023 Sacubitril-Valsarta n (Entresto) 49-51 mg tablet Discontinued 1 {tbl} PO TWICE A DAY 180 3 February 05, 2023 1:00am April 20, 2023 2:07pm sotalol hydrochloride 120 mg oral tablet (20 sources) Antiarrhythmic Start: 12-02-2020 End: 07-28-2024 take 1 tablet by mouth twice daily Sotalol 120 mg tablet Discontinued 120 mg PO TWICE A DAY 180 3 July 27, 2024 11:16am July 28, 2024 9:26am spironolactone 25 mg oral tablet (20 sources) Aldosterone Antagonist Start: 01-20-2023 End: 07-28-2024 take 1 tablet by mouth once daily Spironolactone 25 mg tablet Discontinued 25 mg PO DAILY 90 July 27, 2024 11:17am July 28, 2024 9:26am Problems Active Problems Problem Classification Problem Date Documented Da te Episodic/Chronic Abdominal pain (19 sources) Abdominal pain; Translations: [Unspecified abdominal pain] [...] 3 07-13-2018 Chronic Disorders of lipid metabolism (20 sources) Hyperlipidemia; Translations: [Hyperlipidemia, unspecified] Onset: 2 [...] Episodic Other ear and sense organ disorders (19 sources) Diffuse otitis externa, left ear; Translations: [Diffuse otitis externa of left ear] 04-24-2020 Episodic Other ear and sense organ disorders (12 sources) Impacted cerumen; Translations: [Impacted cerumen, bilateral] 02-09-2023 Episodic Other ear and sense organ disorders (3 sources) Impacted cerumen, bilateral; Translations: [Impacted cerumen] 02-09-2023 Episodic Other gastrointestinal disorders (2 sources) Encounter for fitting and adjustment of other gastrointestinal appliance and device; Translations: [Encounter for fit/adjst of GI appliance and device] Onset: 3 Episodic Other liver diseases (19 sources) Elevated liver enzymes level; Translations: [Abnormal [...] 5 01-06-2023 Episodic Other lower respiratory disease (15 sources) Dyspnea on exertion; Translations: [Other forms of dyspnea] 08-07-2024 Episodic Other nutritional; endocrine; and metabolic disorders [...] 2 Chronic Otitis media and related conditions (19 sources) Dysfunction of eustachian tube; Translations: [Other specified disorders of Eustachian tube, bilateral] 04-24-2020 Episodic Residual codes; unclassified (1 source) Central sleep apnea in conditions classified elsewhere; Translations: [Central sleep apnea in conditions classified elsewhere] Onset: 5 Chronic Spondylosis; intervertebral disc disorders; other back problems (1 source) Spondylosis without myelopathy or radiculopathy, lumbosacral region; Translations: [Spondylosis without myelopathy or radiculopathy, lumbosacral region] Onset: 4 Chronic Spondylosis; intervertebral disc disorders; other back problems (20 sources) Spasm of back muscles; Translations: [Muscle spasm of back] 01-04-2019 Episodic Substance-related disorders (1 source) Opioid dependence, uncomplicated; Translations: [Opioid dependence, uncomplicated] Onset: 5 Chronic Thyroid disorders (8 sources) Multinodular goiter; Translations: [Nontoxic multinodular goiter] Onset: 5 10-12-2024 Chronic Unclassified (5 sources) Atrial fibrillation and flutter ; Translations: [Atrial fibrillation/flutter] Onset: 1 06-26-2021 Unclassified (20 sources) Atrial fibrillation/flutter; Translations: [Z98.890 - Other specified postprocedural states] Unclassified (9 sources) History of radiofrequency ablation procedure for cardiac arrhythmia Unclassified (7 sources) At scheduled appointment time Unclassified (2 sources) Autogenerated Problem Onset: 5 11-08-2024 Unclassified (2 sources) Other persistent atrial fibrillation; Translations: [Other persistent atrial fibrillation] Onset: 1 Past or Other Problems Problem Classification Problem Date Documented Date Episodic/Chronic Other circulatory disease (19 sources) History of cerebrovascular accident; Translations: [Personal history of transient ischemic attack (TIA), and cerebral infarction without residual deficits] Onset: 04-30-2018 01-13-2022 Episodic Other circulatory disease (1 source) Personal history of transient ischemic attack (TIA), and cerebral infarction without residual deficits; Translations: [Prsnl hx of TIA (TIA), and cereb infrc w/o resid deficits] Onset: 01-03-2022 Episodic Other connective tissue disease (1 source) Other specified soft tissue disorders; Translations: [Other specified soft tissue disorders] Onset: 08-21-2024 Episodic Other lower respiratory disease (1 source) Other forms of dyspnea; Translations: [Other forms of dyspnea] Onset: 08-14-2024 Episodic Pulmonary heart disease (20 sources) Pulmonary embolism; Translations: [Other pulmonary embolism [...] catheter for management of atrial fibrillation. 11/29/20 Residual codes; unclassified (1 source) Other specified postprocedural states; Translations: [Other specified postprocedural states] Onset: 08-24-2024 Episodic Skin and subcutaneous tissue infections (20 sources) Cellulitis of right lower limb; Translations: [Cellulitis of right lower limb] Onset: 08-14-2024 08-07-2024 Episodic Viral infection (19 sources) COVID-19; Translations: [Severe acute respiratory syndrome coronavirus 2 (SARS-CoV-2) detected] Onset: 02-17-2020 12-02-2020 Episodic Results Test Name Value Interpretation Reference Range Facility OT D/C of Non Returning [place] 11-22-2024 OT D/C of Non Returning Pt [facility] [place] [address] / REHABILITATION SERVICES DISCHARGE SUMMARY MR#: [id number] Acct: [id number] Name: RICHI HU Rep #: [id number] : 1955 69 From: Susie WEI/Klarissa, T Referring Dr.: Dr. Leonor Aldrich MD Status: REG RCR Eval Date: Discharge Date: Patient Information Patient Information: RICHI HU was seen in my office for initial evaluation on 09/05/24. The following Plan of Care was established for this patient: POC Established Initial Frequency: Every Other Week Initial Duration: 2 Months Anticipated Interventions Anticipated Interventions: Education re Diagnosis, Education re Life-long lymphedema Management, Education re Self-Bandaging Techniques, Education re Skin Care and Precautions, Education re Self Massage Techniques, Education re Correct Donning Tech,Care Wearing Sched Comp Garments, Caregiver Training and Home Program Last Seen Last Seen: This patient was last seen in our office 09/14/24. Pertinent comments regarding their Occupational therapy will appear below: no further apts have been scheduled and due to time lapse in services pt is d/c at this time. At this point I will be discontinuing this patient from occupational therapy. I would be happy to see this patient again in the future if found appropriate by the physician. Thank you! SANJUANA He/Klarissa, CHT 11/22/24 1546 CC: Dr. Leonor Aldrich MD MK [facility] Office Visit (GENSWS ) RICHI HU ([id number]) 1955 M Date Time Provider Department 11/15/24 2:30 PM AXEL MARQUIS During your visit today, we recorded the following information about you: Axel Marquis MD 11/15/2024 2:38 PM Signed Subjective:Richi Hu is a 69-year-old male presenting for follow-up after a recent FNA biopsy of a thyroid nodule. Richi reports that the FNA biopsy of the left thyroid nodule was performed without complications, and the results were benign, consistent with a colloid nodule. He inquires about the potential for the nodule to become malignant in the future. He also asks about the size of the nodule and the need for future monitoring or additional biopsies. He expresses relief at the benign results, stating that he had been expecting worse news. Richi also discusses recent stress related to changes at his former workplace, describing it as a bloodletting where many colleagues were let go. He compares the situation to [facility] and expresses concern for the future of the company. He notes that he retired in May and is no longer directly involved, but he continues to receive calls from former colleagues in [place] asking about the situation. Objective:There were no vitals taken for this visit. No hard palpable nodules are identified in the neck. Labs: Tests: - Fine Needle Aspiration: Benign, consistent with a colloid nodule Imaging: - Neck Ultrasound: Left thyroid nodule measuring 1.4 ? 1.1 ? 0.8 cm; additional sub-centimeter cystic areas noted with no indication for biopsy Assessment/plan 1. Multinodular goiter (E04.2) FNA of left thyroid nodule (1.4 x 1.1 x 0.8 cm) benign, consistent with colloid nodule; multiple subcentimeter cystic nodules present, none meeting criteria for biopsy at this time. - Educated patient that nodules are benign and do not require intervention unless growth or change occurs. - Advised that any nodule growth >20% or meeting TIRADS criteria will require repeat FNA. - Annual neck ultrasound recommended; patient to coordinate with radiology or through PCP. - Advised to return sooner if radiology recommends FNA or if there are changes in nodule size. Allergies As of Date: 11/15/2024 Noted Allergy Reaction PENICILLINS 08/13/2004 SULFA (SULFONAMIDE ANTIBIOTICS) 08/13/2004 Date Reviewed: 11/15/2024 Reviewed by: Tere Akbar RN - Fully Assessed Reason for Visit: Follow Up [171] Cmt: Thyroid bx, done in IR Primary Visit Diagnosis:Multinodular goiter [E04.2] Prescriptions as of 11/15/2024 - rivaroxaban (XARELTO) 20 mg tablet Take 20 mg by mouth once daily. - mecobalamin, vitamin B12, 5,000 mcg ODT Take 1 tablet by mouth once daily. - losartan (COZAAR) 50 mg tablet Take 50 mg by mouth once daily. - latanoprost (XALATAN) 0.005 % ophthalmic solution Use 1 drop in both eyes daily at bedtime. - furosemide (LASIX) 40 mg tablet Take 60 mg by mouth two times a day. - mv-min/folic/K1/lycopen/lut ein (CENTRUM SILVER MEN PO) Take 1 tablet by mouth once daily. - magnesium aspart,citrate,oxide 400 mg magnesium cap Take 1 capsule by mouth once daily. - sotalol (BETAPACE) 120 mg tablet Take 120 mg by mouth two times a day. - spironolactone (ALDACTONE) 25 mg tablet Take 25 mg by mouth once daily. - cholecalciferol, Vitamin D3, (VITAMIN D3) 1,250 mcg (50,000 unit) cap capsule Take 50,000 Units by mouth one time a week. - ULTRACET 37.5 MG-325 MG ORAL TAB as needed - VOLTAREN 75 MG ORAL TBEC as needed - XIFAXAN 200 MG ORAL TAB as needed - LEVBID 0.375 MG ORAL TB12 take 1 tab by mouth 2 times per day Problem List As Of Date: 11/15/2024 (None) Encounter Status:Closed by AXEL MARQUIS on 11/15/[address] [facility] 11-08-2024 ALLIED HEALTH HNO ID: [id number] Author: ORLANDO PEREZ Tech Service: Radiology Author Type: Master Control Operator Type: Allied Health Filed: 11/08/2024 11:54 Note Text: Radiology Service Progress Note PATIENT NAME: Richi Hu DATE OF SERVICE: November 08, 2024 TIME: 11:54 AM PATIENT IDENTITY VERIFICATION COMPLETED USING TWO (2) IDENTIFIERS: Name and Date of confirmed by patient verbally. FALL SCREENING: Has the patient had 2 falls in the last year or 1 fall with injury or currently using an Ambulatory Assistive Device (Walker, Cane, Wheelchair, Crutches, etc.)? No PATIENT GENDER DATA: Assigned male at PATIENT RELEVANT IMPLANT DATA REVIEWED: Not Applicable PATIENT PRESENTS WITH AN IMPLANTABLE OR ATTACHED HEALTH INFORMATION CODER: No RADIOLOGY DEPARTMENT: Biopsy and Ultrasound PERIPHERAL IV DATA: Not applicable SIGNED BY: Jesús Forrest November 08, 2024 11:54 AM Normal [facility] 11-08-2024 [facility] Telephone (GENSHELBY) RICHI HU ([id number]) 1955 M Date Time Provider Department 11/08/24 AXEL MARQUIS During your visit today, we recorded the following information about you: Kristine Ortiz 11/08/2024 8:42 AM Signed Patient called from [facility] pt said he received a detailed message from Jannet at [facility] [phone] saying to arrive at [facility] at 8:30am on 11-08 for a thyroid biopsy Patient is waiting at [facility] right now he does not have an order or appointment Patient can be reached at [phone] Please advise Mary Haynes MA 11/08/2024 2:41 PM Signed Pt currently at [facility] for biopsy. Mary Haynes MA Allergies As of Date: 11/08/2024 Noted Allergy Reaction PENICILLINS 08/13/2004 SULFA (SULFONAMIDE ANTIBIOTICS) 08/13/2004 Date Reviewed: 11/08/2024 Reviewed by: Orlando Perez Tech - Fully Assessed Reason for Visit: Appointment [186] Cmt: Pt at [facility] in [place] right now with no apt Prescriptions as of 11/08/2024 - rivaroxaban (XARELTO) 20 mg tablet Take 20 mg by mouth once daily. - mecobalamin, vitamin B12, 5,000 mcg ODT Take 1 tablet by mouth once daily. - losartan (COZAAR) 50 mg tablet Take 50 mg by mouth once daily. - latanoprost (XALATAN) 0.005 % ophthalmic solution Use 1 drop in both eyes daily at bedtime. - furosemide (LASIX) 40 mg tablet Take 60 mg by mouth two times a day. - mv-min/folic/K1/lycopen/lut ein (CENTRUM SILVER MEN PO) Take 1 tablet by mouth once daily. - magnesium aspart,citrate,oxide 400 mg magnesium cap Take 1 capsule by mouth once daily. - sotalol (BETAPACE) 120 mg tablet Take 120 mg by mouth two times a day. - spironolactone (ALDACTONE) 25 mg tablet Take 25 mg by mouth once daily. - cholecalciferol, Vitamin D3, (VITAMIN D3) 1,250 mcg (50,000 unit) cap capsule Take 50,000 Units by mouth one time a week. - ULTRACET 37.5 MG-325 MG ORAL TAB as needed - VOLTAREN 75 MG ORAL TBEC as needed - XIFAXAN 200 MG ORAL TAB as needed - LEVBID 0.375 MG ORAL TB12 take 1 tab by mouth 2 times per day Problem List As Of Date: 11/08/2024 (None) Encounter Status:Closed by MARY HAYNES on 11/08/24 Normal [facility] CYTOLOGY NON-GYNon 5 AP DISCLAIMER Normal [facility] Comment on above: Order Comment: Speci men Type: SPECIMEN OBTAINED BY ASPIRATION [facility]ing Facility[facility] Address: [address] [place] [address] Result Comment: Nidia saha Developed Test (LDT) Disclaimer: Performance characteristics of immunohistochemical, immunofluorescent, and chromogenic in-situ hybridization tests have been determined by the performing laboratory within the [facility] Department of Pathology and Laboratory Medicine ([facility], [facility], [facility], [facility], [facility], [facility], or [facility]) in a manner consistent with CLIA requirements. One or more of these tests may not have been cleared or approved by the FDA. The [facility] Department of Pathology and Laboratory Medicine is regulated under CLIA as qualified to perform high-complexity testing. These tests are used for clinical purposes. These should not be regarded as investigational or for research. Positive and negative controls stain appropriately. Performed By: #### C BRYCEONOAmbrocio #### [facility] CLIA [id number] [address] [facility] CLIA [id number] [address] [place], [place] [id number] [place] [address] CASE REPORT Normal [facility] Comment on above: Order Comment: Speci men Type: SPECIMEN OBTAINED BY ASPIRATION [facility] Address: [address] [place] [address] Result Comment: [facility] Cytology Report Case: [id number] Authorizing Provider: Joe Waters MD, MD Collected: 11/08/2024 11:33 AM Ordering Location: [facility] Radiology Received: 11/08/2024 12:53 PM Pathologist: Liu Nava MD Specimen: Thyroid, Left, Lobe Performed By: #### C YTONON #### [facility] CLIA [id number] [address] [place], [place] [address]NA LABORATORY CLIA [id number] [address] CLINICAL HISTORY Normal [facility] Comment on above: Order Comment: Speci men Type: SPECIMEN OBTAINED BY ASPIRATION [facility] Address: [address] [place] [address] Result Comment: Mult inodular goiter Afirma received Performed By: #### C YTONON #### [facility] CLIA [id number] [address] [place], [place] [address]NA LABORATORY CLIA [id number] [address] FINAL DIAGNOSIS Normal [facility] Comment on above: Order Comment: Speci men Type: SPECIMEN OBTAINED BY ASPIRATION [facility] Address: [address] [place] [address] Result Comment: A - Thyroid, Left, Lobe, FNA Benign. Consistent with colloid nodule. The following cell blocks were associated with this case: A1\X09\Cell Block, Alcohol Fixed\X09\ at 1513 EDT Performed By: #### C YTONON #### [facility] CLIA [id number] [address] [place] [address] [facility] CLIA [id number] [address] FINAL PERFORMING LAB Normal [facility] Comment on above: Order Comment: Speci men Type: SPECIMEN OBTAINED BY ASPIRATION [facility] Address: [address] [place] [address] Result Comment: Tech nical component, hardwood floor refinisher screening performed at: [facility], [address] [place] [address] [place] [address] CLIA: [id number] Diagnostic interpretation performed at: [facility], [address] [place] [address] CLIA# [id number] Matching Machine Operator: Jhonathan Luong MD Performed By: #### C YTONON #### [facility] CLIA [id number] [address] [place] [address] LABORATORY CLIA [id number] [address] GROSS DESCRIPTION Normal [facility] Comment on above: Order Comment: Speci men Type: SPECIMEN OBTAINED BY ASPIRATION [facility] Address: [address] [place] [address] Result Comment: A. T hyroid, Left, Lobe 30 cc clear colorless CytoLyt with scant particles. ThinPrep and Cell Block prepared. Afirma sample received. Performed By: #### C YTONON #### [facility] CLIA [id number] [address] [place] [address] OF [facility] CLIA [id number] [address] [place] US FNA THYROID WO CORE BXon 11-08-2024 FNA THYROID WO CORE BX * * *Final Report* * * DATE OF EXAM: Nov 08 2024 12:09PM ONEIL 1236 - US FNA THYROID WO CORE BX / PROCEDURE REASON: E04.2-Multinodular goiter * * * * Physician Interpretation * * * * US FNA THYROID WO CORE BX INDICATION: Multinodular goiter , with dominant, 1.4 cm left thyroid nodule PROCEDURE: Informed consent was obtained for this procedure. Details of informed consent can be found under the consent tab. The lesion in question is very deep in the neck and close to the carotid artery. Using aseptic technique, 1% lidocaine for local anesthesia and a 23-gauge spinal needle, 3 separate fine-needle aspiration samples were obtained from the nodule or adjacent to the nodule. It was difficult to see the tip of the needle as attempts were made to sample the nodule. Sampling error is certainly a possibility. IMPRESSION: Left thyroid nodule FNA. Security Controls Assessor: PSCJo Transcribe Date/Time: Nov 08 2024 12:30P Dictated by : JOE WATERS MD This examination was interpreted and the report reviewed and electronically signed by: JOE WATERS MD on Nov 08 2024 12:32PM EST [id number] [facility] 10-18-2024 [facility] Office Visit (ALEXANDRA ) RICHI HU ([id number]) 1955 M Date Time Provider Department 10/18/24 10:30 AM AXEL MARQUIS During your visit today, we recorded the following information about you: Tere Akbar RN 10/18/2024 10:21 AM Signed The following instructions are important for you related to your office visit today with the [facility] General Surgeons. Instructions After THYROID FINE NEEDLE ASPIRATION Please do not take aspirin or other blood thinners for the next few days. If you have bleeding from the needle site, hold pressure with a clean gauze. If the bleeding continues, contact our office immediately. I recommend taking Advil or Tylenol for the discomfort. An ice pack may improve your discomfort to the area. Contact our office immediately if you have any questions or concerns @ [phone]. If you note any additional difficulties, questions, or concerns, you should contact our office immediately @ [phone] and ask to be transferred to the General Surgery department. Axel Marquis MD 10/18/2024 12:59 PM Signed Unable to see the lesion today with my ultrasound. Will get him scheduled in interventional radiology. No charge for today's visit. Allergies As of Date: 10/18/2024 Noted Allergy Reaction PENICILLINS 08/13/2004 SULFA (SULFONAMIDE ANTIBIOTICS) 08/13/2004 Date Reviewed: 10/10/2024 Reviewed by: Gera Meyer RN - Fully Assessed Primary Visit Diagnosis:Multinodular goiter [E04.2] Order(s):US THYROID BIOPSY LEFT (POC) SURG USE ONLY [[id number]] Order #: [id number]: 1 IMAGING GUIDED BIOPSY THYROID [[id number]] Order #: [id number] Prescriptions as of 10/18/2024 - rivaroxaban (XARELTO) 20 mg tablet Take 20 mg by mouth once daily. - mecobalamin, vitamin B12, 5,000 mcg ODT Take 1 tablet by mouth once daily. - losartan (COZAAR) 50 mg tablet Take 50 mg by mouth once daily. - latanoprost (XALATAN) 0.005 % ophthalmic solution Use 1 drop in both eyes daily at bedtime. - furosemide (LASIX) 40 mg tablet Take 60 mg by mouth two times a day. - mv-min/folic/K1/lycopen/lut ein (CENTRUM SILVER MEN PO) Take 1 tablet by mouth once daily. - magnesium aspart,citrate,oxide 400 mg magnesium cap Take 1 capsule by mouth once daily. - sotalol (BETAPACE) 120 mg tablet Take 120 mg by mouth two times a day. - spironolactone (ALDACTONE) 25 mg tablet Take 25 mg by mouth once daily. - cholecalciferol, Vitamin D3, (VITAMIN D3) 1,250 mcg (50,000 unit) cap capsule Take 50,000 Units by mouth one time a week. - ULTRACET 37.5 MG-325 MG ORAL TAB as needed - VOLTAREN 75 MG ORAL TBEC as needed - XIFAXAN 200 MG ORAL TAB as needed - LEVBID 0.375 MG ORAL TB12 take 1 tab by mouth 2 times per day Problem List As Of Date: 10/18/2024 (None) Other instructions from your clinician: The following instructions are important for you related to your office visit today with the [facility] General Surgeons. Instructions After THYROID FINE NEEDLE ASPIRATION Please do not take aspirin or other blood thinners for the next few days. If you have bleeding from the needle site, hold pressure with a clean gauze. If the bleeding continues, contact our office immediately. I recommend taking Advil or Tylenol for the discomfort. An ice pack may improve your discomfort to the area. Contact our office immediately if you have any questions or concerns @ [phone]. If you note any additional difficulties, questions, or concerns, you should contact our office immediately @ [phone] and ask to be transferred to the General Surgery department. Encounter Status:Closed by AXEL MARQUIS on 10/18/24 Normal [facility] CNOVon 10-10-2024 CNOV Office Visit (GENSWS ) RICHI HU ([id number]) 1955 M Date Time Provider Department 10/10/24 2:45 PM AXEL MARQUIS GENSWS During your visit today, we recorded the following information about you: Pulse Respiration Blood pressure Weight 85/minute 14/minute 120/71 203.7 kg Gera Meyer RN 10/12/2024 12:32 PM Signed REVIEW OF SYSTEMS: General: The patient notes fatigue, denies weight loss, denies weight gain, denies feeling hot, and denies feelings of cold. Eyes: The patient notes glaucoma, notes eye injury/surgery, wears glasses or contacts. Ear/Nose/Throat: The patient denies allergies, denies hayfever, denies ear infections, and denies bloody noses. Cardiovascular: The patient denies chest pain, notes heart disease, notes high blood pressure,denies cardiac stent, denies prior heart attack, denies irregular heart beat, denies high cholesterol, denies poor circulation, denies heart failure, other cardiac issues, denies claudication, denies cold feet, denies peripheral arterial stent. Respiratory: The patient denies tuberculosis, denies pneumonia, denies frequent cough, denies pulmonary embolism, denies shortness of breath, and denies coughing up blood. Gastrointestinal: The patient denies difficulty swallowing, denies acid reflux, denies ulcers, denies vomiting, denies jaundice/hepatitis, denies gallbladder problems, denies black or tarry stools, denies hemorrhoids, denies bleeding from rectum, denies diverticulitis, denies constipation, denies diarrhea, denies loss of stool control, and denies hernias. Kidney/Bladder: The patient denies kidney stones, denies urine infections, and denies bloody urine. Skin: The patient denies a history of skin cancer, denies bleeding/changing moles, and denies a history of skin rash. Neurologic: The patient denies a history of epilepsy/convulsions, denies headaches, denies head/spinal injuries, and notes stroke/TIA. Psychiatric: The patient denies psychiatric medications, denies depression, and denies voices, denies substance abuse. Endocrine: The patient denies thyroid disorders, denies diabetes, and denies hormonal problems. Hematologic: The patient denies a history of bruising, denies bleeding, and denies anemia, notes blood clots. Infections: The patient notes a history of measles and mumps, denies rheumatic fever, and denies sexually transmitted diseases. Musculoskeletal: The patient notes back pain/injury, denies back problems, notes sciatica, denies knee/foot trouble, denies arthritis, or denies gout. When was patient's last Mammogram screening? N/A Last Colonoscopy: BABAK King Daniel P, MD 10/12/2024 12:32 PM Signed HISTORY AND PHYSICAL Richi Hu 1955 REFERRING PHYSICIAN: No ref. provider found CHIEF COMPLAINT: Thyroid Nodule (Sent per PCP) HPI: Richi Hu is a 69-year-old male, with a history of thyroid nodules, CVA in 2019, and TN, presenting for evaluation of thyroid nodules. Richi was recently informed by his clinician that he has thyroid nodules, which were discovered during a physical examination. He was subsequently referred for an ultrasound, which confirmed the presence of nodules on the left side of the thyroid. He denies prior knowledge of these nodules and has never had an ultrasound of his neck before this incident. He denies any symptoms such as dysphagia, hoarseness, or neck pain associated with the nodules. Richi has a history of CVA in 2019 and is currently on Xarelto. 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 He is also on Lasix for heart condition. Recently, Richi sustained a leg injury while doing yard work, which led to an infection. He was hospitalized for a few days and his Lasix dosage was increased from 20-30 mg BID to 60 mg BID to manage the swelling. He reports that the swelling has since decreased. No past medical history on file. No past surgical history on file. Current Outpatient Medications Medication Sig rivaroxaban (XARELTO) 20 mg tablet Take 20 mg by mouth once daily. mecobalamin, vitamin B12, 5,000 mcg ODT Take 1 tablet by mouth once daily. losartan (COZAAR) 50 mg tablet Take 50 mg by mouth once daily. latanoprost (XALATAN) 0.005 % ophthalmic solution Use 1 drop in both eyes daily at bedtime. furosemide (LASIX) 40 mg tablet Take 60 mg by mouth two times a day. mv-min/folic/K1/lycopen/lut ein (CENTRUM SILVER MEN PO) Take 1 tablet by mouth once daily. magnesium aspart,citrate,oxide 400 mg magnesium cap Take 1 capsule by mouth once daily. sotalol (BETAPACE) 120 mg tablet Take 120 mg by mouth two times a day. spironolactone (ALDACTONE) 25 mg tablet Take 25 mg by mouth once daily. cholecalciferol, Vitamin D3, (VITAMIN D3) 1,250 mcg (50,000 unit) cap capsule Take 50,000 Units by mouth one time a week. ULT (more content not included)... Normal [facility] Josh 10-04-2024 [facility] RICIH HU ([id number]) 1955 M Date Time Provider Department 10/04/24 AXEL MARQUIS During your visit today, we recorded the following information about you: Tere Akbar RN 10/04/2024 4:46 PM Signed Images requested from [facility].Tere Akbar RN Allergies As of Date: 10/04/2024 Noted Allergy Reaction PENICILLINS 08/13/2004 SULFA (SULFONAMIDE ANTIBIOTICS) 08/13/2004 Date Reviewed: 08/13/2004 Reviewed by: Stephanie Delgado Ma - Reviewed Reason for Visit: Request Outside Medical Records [[id number]] Prescriptions as of 10/05/2024 - ULTRACET 37.5 MG-325 MG ORAL TAB as needed - VOLTAREN 75 MG ORAL TBEC as needed - XIFAXAN 200 MG ORAL TAB as needed - LEVBID 0.375 MG ORAL TB12 take 1 tab by mouth 2 times per day Problem List As Of Date: 10/04/2024 (None) Encounter Status:Closed by TERE AKBAR on 10/05/24 Normal [facility] Thyroidon 09-28-2024 Thyroid [facility] Imaging Services [address] [place] [address] Thyroid MR#: [id number] Acct: [id number] Name: RICHI HU Rep #: [id number] : 1955 M 69 From: Jace han MD PCP: Dr. Leonor Aldrich MD Status: [facility] CLI Study: Thyroid Date of Exam: 09/28/24 Exam# [id number] Ordering Dr: Leonor Aldrich MD PROCEDURE: THYROID 09/28/2024 REASON FOR EXAM: NODULE TECHNIQUE: THYROID COMPARISON: None FINDINGS: Right thyroid lobe size: 5.4 cm x 2.4 cm x 1.5 cm Left thyroid lobe size: 4.7 cm 1.6 cm 1.7 cm Isthmus: 0.4 cm Background parenchymal echotexture is homogeneous. Nodules: There are 3 subcentimeter cysts in the right lobe of the thyroid. 1.4 cm 1.1 cm x 0.8 cm hypoechoic solid nodule in the left lobe of the thyroid. This is heterogeneous. TI-RADS category 3. There are 2, subcentimeter cystic nodules in the lower lobe. US/Thyroid IMPRESSION: Bilateral cystic nodules as described. Dominant 1.4 cm x 1.1 cm x 0.8 cm hypoechoic solid nodule in the left lobe of the thyroid as described. TI-RADS category 3. Tissue diagnosis recommended. RECOMMENDATION: Based on most suspicious nodule. Nodule size = largest diameter Only evaluate nodule if =>5 mm. Growth > 20% in 2 dimensions = worsening. Follow up to 4 nodules. Recommend biopsy for no more than 2 nodules. Reading Location: [id number] CC: Dr. Leonor Aldrich MD Security Controls Assessor: Signed Normal [facility] Thyroglobulin w/Anti-TG ABon 09-23-2024 Anti-TG AB < 1.0 Normal 0.0-0.9 [facility] Comment on above: Result Comment: Thyr oglobulin Antibody measured by [facility] [place] [facility] It should be noted that the presence of thyroglobulin antibodies may not be pathogenic nor diagnostic, especially at very low levels. The assay optical glass inspector has found that four percent of individuals without evidence of thyroid disease or autoimmunity will have positive TgAb levels up to 4 IU/mL. Performed By: #### L 100.0100, L500.2500 #### [facility] [address] [place] [address], [id number] THYROGLOB QUANT 4.2 ng/mL Normal 1.4-29.2 [facility] Comment on above: Result Comment: Acco rding to the National Academy of Clinical Biochemistry, the reference interval for Thyroglobulin (TG) should be related to euthyroid patients and not for patients who underwent thyroidectomy. TG reference intervals for these patients depend on the residual mass of the thyroid tissue left after surgery. Establishing a post-operative baseline is recommended. The assay limit of quantitation is 0.1 ng/mL Thyroglobulin measured by [facility] Performed By: #### L 100.0100, L500.2500 #### [facility] [address] [place], [address] Thyroid Peroxidase ABon -2 THYR PEROX AB 11 IU/mL Normal 0-34 [facility] Comment on above: Result Comment: Perf ormed at: - [facility] [address] [id number] Technical Instructor: Boston Aguirre PhD, Phone: [phone] Performed By: #### L 100.0100, L500.2500 #### [facility] [address] [place], [place], [id number] Absolute lymphocyte countOrd ered By: Leonor Aldrich on 09-21-2024 Lymphocytes Auto (Unsp spec) [#/Vol] 2.21 10*3/uL 0.83-4.51 [facility] Absolute neutrophil countOrd ered By: Leonor Aldrich on 09-21-2024 Neutrophils (Bld) [#/Vol] 4.3 10*3/uL 2.0-7.7 [facility] Anion gap in Serum or Plasma Ordered By: Leonor Aldrich on 09-21-2024 Anion gap [Moles/Vol] 12 mmol/L 5-15 [facility] Automated lymphocyte count a s percentage of total leukocytesOrdered By: Leonor Aldrich on 09-21-2024 Lymphocytes/100 WBC Auto (Unsp spec) 29.2 % 19-41 [facility] BUN/creatinine ratioOrdered By: Leonor Aldrich on 09-21-2024 Urea nitrogen/Creatinine [Mass ratio] 17.2 mg/mg 10-20 [facility] Basophil percentageOrdered B y: Leonor Aldrich on 09-21-2024 Basophils/100 WBC (Bld) 1.1 % High 0-1 [facility] Bilirubin Test strip Ql (U)O rdered By: Leonor Aldrich on 09-21-2024 Bilirubin Ql (U) Negative Negative [facility] Bilirubin, totalOrdered By: Loenor Aldrich on 09-21-2024 Bilirubin [Mass/Vol] 1.03 mg/dL 0.00-1.30 [facility] CBC W/Diff, Automatedon - Absolute Lymph 2.21 X10 3/uL Normal 0.83-4.51 [facility] Comment on above: Order Comment: Order Date: 09/21/24Order Info: 183-1 - CBCD Performed By: #### L 500.2500 #### [facility] [address] [place], [address] Absolute Neut 4.3 X10 3/uL Normal 2.0-7.7 [facility] Comment on above: Order Comment: Order Date: 09/21/24Order Info: 183- - CBCD Performed By: #### L 500.2500 #### [facility] [address] [place], [address] Basophils/100 WBC (Bld) 1.1 % High 0-1 [facility] Comment on above: Order Comment: Order Date: 09/21/24Order Info: 183- - CBCD Performed By: #### L 500.2500 #### [facility] [address] [place], [address] Eosinophils/100 WBC (Bld) 3.4 % Normal 0-5 [facility] Comment on above: Order Comment: Order Date: 09/21/24Order Info: 018- - CBCD Performed By: #### L 500.2500 #### [facility] [address] [place], [address] Erythrocyte distribution width (RBC) [Ratio] 13.3 % Normal 11.6-14.6 [facility] Comment on above: Order Comment: Order Date: 09/21/24Order Info: 018-1 - CBCD Performed By: #### L 500.2500 #### [facility] [address] [place], [address] Hematocrit (Bld) [Volume fraction] 44.1 % Normal 40-54 [facility] Comment on above: Order Comment: Order Date: 09/21/24Order Info: [id number] - CBCD Performed By: #### L 500.2500 #### [facility] [address] [place], [address] Hemoglobin (Bld) [Mass/Vol] 14.9 g/dL Normal 13.0-16.5 [facility] Comment on above: Order Comment: Order Date: 09/21/24Order Info: 183- - CBCD Performed By: #### L 500.2500 #### [facility] [address] [place], [address] IG% 0.300 Normal 0.0-0.9 [facility] Comment on above: Order Comment: Order Date: 09/21/24Order Info: 183- - CBCD Result Comment: IG% - Immature Granulocytes (promyelocytes, myelocytes and metamyelocytes) > 1% indicates that a LEFT SHIFT is Present. Performed By: #### L 500.2500 #### [facility] [address] [place], [address] Lymphocytes/100 WBC (Bld) 29.2 % Normal 19-41 [facility] Comment on above: Order Comment: Order Date: 09/21/24Order Info: 183- - CBCD Performed By: #### L 500.2500 #### [facility] [address] [place], [address] MCH (RBC) [Entitic mass] 31.2 pg Normal 27.0-32.0 [facility] Comment on above: Order Comment: Order Date: 09/21/24Order Info: 183- - CBCD Performed By: #### L 500.2500 #### [facility] [address] [place], [address] MCHC (RBC) [Mass/Vol] 33.8 g/dL Normal 32-36 [facility] Comment on above: Order Comment: Order Date: 09/21/24Order Info: 183- - CBCD Performed By: #### L 500.2500 #### [facility] [address] [place] [address] [place], [address] MCV (RBC) [Entitic vol] 92.5 fL Normal 80-94 [facility] Comment on above: Order Comment: Order Date: 09/21/24Order Info: [id number] - CBCD Performed By: #### L 500.2500 #### [facility] [address] [address] [place], [address] Monocytes/100 WBC (Bld) 9.1 % Normal 0-10 [facility] Comment on above: Order Comment: Order Date: 09/21/24Order Info: 4- - CBCD Performed By: #### L 500.2500 #### [facility] [address] [place] [address] [place], [address] Neutrophils/100 WBC (Bld) 56.9 % Normal 47-70 [facility] Comment on above: Order Comment: Order Date: 09/21/24Order Info: 018- - CBCD Performed By: #### L 500.2500 #### [facility] [address] [address] [place], [address] Nucleated RBC (Bld) [#/Vol] 0 10*3/uL Normal 0-5 [facility] Comment on above: Order Comment: Order Date: 09/21/24Order Info: 018- - CBCD Performed By: #### L 500.2500 #### [facility] [address] [address] [place], [address] Platelet mean volume (Bld) [Entitic vol] 9.8 fL Normal 6.2-12.0 [facility] Comment on above: Order Comment: Order Date: 09/21/24Order Info: 018-1 - CBCD Performed By: #### L 500.2500 #### [facility] [address] [place], [address] Platelets (Bld) [#/Vol] 227 10*3/uL Normal 150-450 [facility] Comment on above: Order Comment: Order Date: 09/21/24Order Info: 018- - CBCD Performed By: #### L 500.2500 #### [facility] [address] [place], [address] RBC (Bld) [#/Vol] 4.77 10*6/uL Normal 4.6-6.2 [facility] Comment on above: Order Comment: Order Date: 09/21/24Order Info: 183- - CBCD Performed By: #### L 500.2500 #### [facility] [address] [place], [address] RDW SD 45.3 fl High 35.1-43.9 [facility] Comment on above: Order Comment: Order Date: 09/21/24Order Info: 183- - CBCD Performed By: #### L 500.2500 #### [facility] [address] [place], [address] WBC (Bld) [#/Vol] 7.6 10*3/uL Normal 4.4-11.0 [facility] Comment on above: Order Comment: Order Date: 09/21/24Order Info: 018- - CBCD Performed By: #### L 500.2500 #### [facility] [address] [place], [address] Calculated very low density lipoprotein (VLDL) cholesterol measurementOrdered By: Leonor Aldrich on 09-21-2024 Calculated very low density lipoprotein (VLDL) cholesterol measurement 55 mg/dL High 5-40 [facility] Carbon dioxide, total [Moles /volume] in Central venous bloodOrdered By: Leonor Aldrich on 09-21-2024 CO2 [Moles/Vol] 25.3 mmol/L 21.0-32.0 [facility] Chloride assayOrdered By: Heena Aldrich on 09-21-2024 Chloride [Moles/Vol] 100 mmol/L 98-108 [facility] Comprehensive Metabolic Prof ilon 09-21-2024 Albumin [Mass/Vol] 3.9 g/dL Normal 3.4-4.8 [facility] Comment on above: Order Comment: Order Date: 09/21/24Order Info: [id number] - CMPOrder Info: [id number] - LIPIDOrder Info: [id number] - MGOrder Info: [id number] - TSHOrder Info: [id number] - T4F Performed By: #### L 100.0100, L500.2500 #### [facility] [address] [place], [address] Albumin/Globulin [Mass ratio] 1.2 {ratio} Normal 0.9-2.4 [facility] Comment on above: Order Comment: Order Date: 09/21/24Order Info: [id number] - CMPOrder Info: [id number] - LIPIDOrder Info: [id number] - MGOrder Info: [id number] - TSHOrder Info: [id number] - T4F Performed By: #### L 100.0100, L500.2500 #### [facility] [address] [place], [address] ALK PHOS 96 U/L Normal 40-129 [facility] Comment on above: Order Comment: Order Date: 09/21/24Order Info: [id number] - CMPOrder Info: [id number] - LIPIDOrder Info: [id number] - MGOrder Info: [id number] - TSHOrder Info: [id number] - T4F Performed By: #### L 100.0100, L500.2500 #### [facility] [address] [place], [address] ALT [Catalytic activity/Vol] 20 U/L Normal <=46 [facility] Comment on above: Order Comment: Order Date: 09/21/24Order Info: [id number] - CMPOrder Info: [id number] - LIPIDOrder Info: [id number] - MGOrder Info: [id number] - TSHOrder Info: [id number] - T4F Performed By: #### L 100.0100, L500.2500 #### [facility] [address] [place], [address] AST [Catalytic activity/Vol] 29 U/L Normal <=37 [facility] Comment on above: Order Comment: Order Date: 09/21/24Order Info: [id number] - CMPOrder Info: [id number] - LIPIDOrder Info: [id number] - MGOrder Info: [id number] - TSHOrder Info: [id number] - T4F Performed By: #### L 100.0100, L500.2500 #### [facility] [address] [place], [address] Bilirubin [Mass/Vol] 1.03 mg/dL Normal 0.00-1.30 [facility] Comment on above: Order Comment: Order Date: 09/21/24Order Info: [id number] - CMPOrder Info: [id number] - LIPIDOrder Info: [id number] - MGOrder Info: [id number] - TSHOrder Info: [id number] - T4F Performed By: #### L 100.0100, L500.2500 #### [facility] [address] [place], [address] BUN/CRE 17.2 RATIO Normal 10-20 [facility] Comment on above: Order Comment: Order Date: 09/21/24Order Info: [id number] - CMPOrder Info: [id number] - LIPIDOrder Info: [id number] - MGOrder Info: [id number] - TSHOrder Info: [id number] - T4F Performed By: #### L 100.0100, L500.2500 #### [facility] [address] [place], [address] Calcium [Mass/Vol] 9.3 mg/dL Normal 7.6-11.0 [facility] Comment on above: Order Comment: Order Date: 09/21/24Order Info: [id number] - CMPOrder Info: [id number] - LIPIDOrder Info: [id number] - MGOrder Info: [id number] - TSHOrder Info: [id number] - T4F Performed By: #### L 100.0100, L500.2500 #### [facility] [address] [place], [address] Chloride [Moles/Vol] 100 mmol/L Normal 98-108 [facility] Comment on above: Order Comment: Order Date: 09/21/24Order Info: [id number] - CMPOrder Info: [id number] - LIPIDOrder Info: [id number] - MGOrder Info: [id number] - TSHOrder Info: [id number] - T4F Performed By: #### L 100.0100, L500.2500 #### [facility] [address] [place], [address] CO2 [Moles/Vol] 25.3 mmol/L Normal 21.0-32.0 [facility] Comment on above: Order Comment: Order Date: 09/21/24Order Info: [id number] - CMPOrder Info: [id number] - LIPIDOrder Info: [id number] - MGOrder Info: [id number] - TSHOrder Info: 3024-7 - T4F Performed By: #### L 100.0100, L500.2500 #### [facility] [address] [place], [address] Creatinine [Mass/Vol] 0.90 mg/dL Normal 0.70-1.20 [facility] Comment on above: Order Comment: Order Date: 09/21/24Order Info: [id number] - CMPOrder Info: [id number] - LIPIDOrder Info: [id number] - MGOrder Info: [id number] - TSHOrder Info: [id number] - T4F Performed By: #### L 100.0100, L500.2500 #### [facility] [address] [place], [address] GAP 12 Normal 5-15 [facility] Comment on above: Order Comment: Order Date: 09/21/24Order Info: [id number] - CMPOrder Info: [id number] - LIPIDOrder Info: [id number] - MGOrder Info: [id number] - TSHOrder Info: [id number] - T4F Performed By: #### L 100.0100, L500.2500 #### [facility] [address] [place], [address] GFR/1.73 sq M.predicted among non-blacks MDRD (S/P/Bld) [Vol rate/Area] 94 mL/min/{1.73_m2} Normal >60 [facility] Comment on above: Order Comment: Order Date: 09/21/24Order Info: [id number] - CMPOrder Info: [id number] - LIPIDOrder Info: [id number] - MGOrder Info: [id number] - TSHOrder Info: 3024-7 - T4F Result Comment: mL/m in/1.73m2 CKD-EPI Creatinine Equation (2020) Performed By: #### L 100.0100, L500.2500 #### [facility] [address] [place], [address] Globulin (S) [Mass/Vol] 3.2 g/dL Normal 2.2-4.2 [facility] Comment on above: Order Comment: Order Date: 09/21/24Order Info: 86-1 - CMPOrder Info: [id number] - LIPIDOrder Info: [id number] - MGOrder Info: [id number] - TSHOrder Info: 3024-7 - T4F Performed By: #### L 100.0100, L500.2500 #### [facility] [address] [place], [address] Glucose [Mass/Vol] 107 mg/dL High 70-99 [facility] Comment on above: Order Comment: Order Date: 09/21/24Order Info: 86-1 - CMPOrder Info: [id number] - LIPIDOrder Info: [id number] - MGOrder Info: [id number] - TSHOrder Info: [id number] - T4F Performed By: #### L 100.0100, L500.2500 #### [facility] [address] [place], [address] Potassium [Moles/Vol] 3.6 mmol/L Normal 3.3-5.1 [facility] Comment on above: Order Comment: Order Date: 09/21/24Order Info: [id number] - CMPOrder Info: [id number] - LIPIDOrder Info: [id number] - MGOrder Info: [id number] - TSHOrder Info: [id number] - T4F Performed By: #### L 100.0100, L500.2500 #### [facility] [address] [place], [address] Sodium [Moles/Vol] 138 mmol/L Normal 133-145 [facility] Comment on above: Order Comment: Order Date: 09/21/24Order Info: 86-1 - CMPOrder Info: [id number] - LIPIDOrder Info: [id number] - MGOrder Info: [id number] - TSHOrder Info: [id number] - T4F Performed By: #### L 100.0100, L500.2500 #### [facility] [address] [facility] [address] T PROT 7.1 g/dL Normal 5.9-8.4 [facility] Comment on above: Order Comment: Order Date: 09/21/24Order Info: 86-1 - CMPOrder Info: [id number] - LIPIDOrder Info: [id number] - MGOrder Info: [id number] - TSHOrder Info: [id number] - T4F Performed By: #### L 100.0100, L500.2500 #### [facility] [address] [place], [address] Urea nitrogen [Mass/Vol] 15 mg/dL Normal 4-19 [facility] Comment on above: Order Comment: Order Date: 09/21/24Order Info: 86-1 - CMPOrder Info: [id number] - LIPIDOrder Info: [id number] - MGOrder Info: [id number] - TSHOrder Info: [id number] - T4F Performed By: #### L 100.0100, L500.2500 #### [facility] [address] [place], [address] Eosinophil percentageOrdered By: Leonor Aldrich on 09-21-2024 Eosinophils/100 WBC (Bld) 3.4 % 0-5 [facility] Erythrocyte distribution wid th ratioOrdered By: Leonor Aldrich on 09-21-2024 Erythrocyte distribution width (RBC) [Ratio] 13.3 % 11.6-14.6 [facility] Erythrocyte distribution wid th standard deviationOrdered By: Leonor Aldrich on 09-21-2024 Erythrocyte distribution width (RBC) [Ratio] 45.3 fl High 35.1-43.9 [facility] Glomerular filtration rate ( GFR) estimation/1.73 sq m using serum, plasma, or whole bOrdered By: Leonor Aldrich on 09-21-2024 GFR/1.73 sq M.predicted among non-blacks MDRD (S/P/Bld) [Vol rate/Area] 94 mL/min/{1.73_m2} >60 [facility] Comment on above: mL/min/1.73m2 CKD-EP I Creatinine Equation (2020) Hematocrit Auto (Bld) [Volum e fraction]Ordered By: Leonor Aldrich on 09-21-2024 Hematocrit (Bld) [Volume fraction] 44.1 % 40-54 [facility] Hemoglobin A1con 09-21-2024 HbA1c (Bld) [Mass fraction] 5.8 % High <=5.6 [facility] Comment on above: Order Comment: Order Date: 09/21/24Order Info: [id number] - A1C Result Comment: Norm al < 5.7 % Prediabetic 5.7 - 6.4 % Diabetic >or= 6.5 % Please note range changes. Performed By: #### L 500.2500 #### [facility] [address] [place], [address] Hemoglobin A1c percentageOrd ered By: Leonor Aldrich on 09-21-2024 HbA1c (Bld) [Mass fraction] 5.8 % High <5.7 [facility] Comment on above: Normal < 5.7 % Predi abetic 5.7 - 6.4 % Diabetic >or= 6.5 % Please note range changes. Hemoglobin measurementOrdere d By: Leonor Aldrich on 09-21-2024 Hemoglobin (Bld) [Mass/Vol] 14.9 g/dL 13.0-16.5 [facility] Immature granulocytes/100 WB C Auto (Bld)Ordered By: Leonor Aldrich on 09-21-2024 Immature granulocytes/100 WBC (Bld) 0.300 % 0.0-0.9 [facility] Comment on above: IG% - Immature Granu locytes (promyelocytes, myelocytes and metamyelocytes) > 1% indicates that a LEFT SHIFT is Present. Ketones Test strip Ql (U)Ord ered By: Leonor Aldrich on 09-21-2024 Ketones Ql (U) Negative Negative [facility] LDL calc ser/plasOrdered By: Leonor Aldrich on 09-21-2024 Cholesterol in LDL [Mass/Vol] 76 mg/dL [facility] Comment on above: Maibfnurbp=822-588 m g/dL & Higher Nkvx=633 mg/dL or greater Laboratory - Chemistry and C hemistry - challengeOrdered By: Leonor Aldrich on 09-21-2024 AST [Catalytic activity/Vol] 29 U/L <38 [facility] Lipid Profileon 09-21-2024 CHOL:HDL 5.74 Normal [facility] Comment on above: Order Comment: Order Date: 09/21/24Order Info: [id number] - CMPOrder Info: [id number] - LIPIDOrder Info: [id number] - MGOrder Info: [id number] - TSHOrder Info: [id number] - T4F Performed By: #### L 100.0100, L500.2500 #### [facility] [address] [place] [address]. [place], [address] Cholesterol [Mass/Vol] 159 mg/dL Normal <=200 [facility] Comment on above: Order Comment: Order Date: 09/21/24Order Info: [id number] - CMPOrder Info: [id number] - LIPIDOrder Info: [id number] - MGOrder Info: [id number] - TSHOrder Info: [id number] - T4F Result Comment: Chol esterol level, Desirable <200 mg/dL Borderline high cholesterol 200-239 mg/dL High cholesterol >=240 mg/dL Recommendations of the NCEP Adult Treatment Panel for the following risk-cutoff thresholds for the [place] population. Performed By: #### L 100.0100, L500.2500 #### [facility] [address] [place], [address] Cholesterol in HDL [Mass/Vol] 28 mg/dL Low [facility] Comment on above: Order Comment: Order Date: 09/21/24Order Info: [id number] - CMPOrder Info: [id number] - LIPIDOrder Info: [id number] - MGOrder Info: [id number] - TSHOrder Info: [id number] - T4F Result Comment: Lelia onal Cholesterol Education Program (NCEP) guidelines: <40 mg/dL: Low HDL-cholesterol (major risk factor for CHD) >= 60 mg/dL: High HDL-cholesterol (negative risk factor for CHD) HDL-cholesterol is affected by a number of factors, e.g. smoking, exercise, hormones, sex and age. Performed By: #### L 100.0100, L500.2500 #### [facility] [address] [place], [address] Cholesterol in LDL [Mass/Vol] 76 mg/dL Normal [facility] Comment on above: Order Comment: Order Date: 09/21/24Order Info: [id number] - CMPOrder Info: [id number] - LIPIDOrder Info: [id number] - MGOrder Info: [id number] - TSHOrder Info: [id number] - T4F Result Comment: Bord okkizv=675-553 mg/dL Higher Cpjo=176 mg/dL or greater Performed By: #### L 100.0100, L500.2500 #### [facility] [address] [place], [address] Cholesterol in VLDL [Mass/Vol] 55 mg/dL High 5-40 [facility] Comment on above: Order Comment: Order Date: 09/21/24Order Info: [id number] - CMPOrder Info: [id number] - LIPIDOrder Info: [id number] - MGOrder Info: [id number] - TSHOrder Info: [id number] - T4F Performed By: #### L 100.0100, L500.2500 #### [facility] [address] [place], [address] Triglyceride [Mass/Vol] 276 mg/dL High [facility] Comment on above: Order Comment: Order Date: 09/21/24Order Info: [id number] - CMPOrder Info: [id number] - LIPIDOrder Info: [id number] - MGOrder Info: 3 - TSHOrder Info: [id number] - T4F Result Comment: The drugs N-Acetylcysteine and Metamizole may falsely depress this assay. Normal range: <150 mg/dL Borderline High: 150-199 mg/dL High: 200-499 mg/dL Very High: >500 mg/dL Performed By: #### L 100.0100, L500.2500 #### [facility] [address] [place], [address] MCV (mean corpuscular volume ) determinationOrdered By: Leonor Aldrich on 09-21-2024 MCV (RBC) [Entitic vol] 92.5 fL 80-94 [facility] Magnesiumon 09-21-2024 Magnesium [Mass/Vol] 2.2 mg/dL Normal 1.5-2.2 [facility] Comment on above: Order Comment: Order Date: 09/21/24Order Info: [id number] - CMPOrder Info: [id number] - LIPIDOrder Info: [id number] - MGOrder Info: [id number] - TSHOrder Info: [id number] - T4F Performed By: #### L 100.0100, L500.2500 #### [facility] [address] [place], [address] Magnesium measurement (mass/ volume)Ordered By: Leonor Aldrich on 09-21-2024 Magnesium (Unsp spec) [Mass/Vol] 2.2 mg/dL 1.5-2.2 [facility] Mean corpuscular hemoglobin (MCH) determinationOrdered By: Leonor Aldrich on 09-21-2024 MCH (RBC) [Entitic mass] 31.2 pg 27.0-32.0 [facility] Mean corpuscular hemoglobin concentration (MCHC) determinationOrdered By: Leonor Aldrich on 09-21-2024 MCHC (RBC) [Mass/Vol] 33.8 g/dL 32-36 [facility] Mean platelet volume determi nationOrdered By: Leonor Aldrich on 09-21-2024 Platelet mean volume (Bld) [Entitic vol] 9.8 fL 6.2-12.0 [facility] Microscopic analysis of urin e for red blood cells (RBC)Ordered By: Leonor Aldrich on 09-21-2024 Microscopic analysis of urine for red blood cells (RBC) 0 SEEN /hpf 0-5 [facility] Monocyte percentageOrdered B y: Leonor Aldrich on 09-21-2024 Monocytes/100 WBC (Bld) 9.1 % 0-10 [facility] Mucus LM Ql (Urine sed)Order ed By: Leonor Aldrich on 09-21-2024 Mucus Ql (Urine sed) 0 SEEN /hpf [facility] Neutrophil percentageOrdered By: Leonor Aldrich on 09-21-2024 Neutrophils/100 WBC (Bld) 56.9 % 47-70 [facility] Nitrite Test strip Ql (U)Ord ered By: Leonor Aldrich on 09-21-2024 Nitrite Ql (U) Negative Negative [facility] Nucleated red blood cell per centageOrdered By: Leonor Aldrich on 09-21-2024 Nucleated RBC/100 WBC (Bld) [Ratio] 0 % 0-5 [facility] Platelet countOrdered By: Heena Aldrich on 09-21-2024 Platelets (Bld) [#/Vol] 227 10*3/uL 150-450 [facility] Potassium measurement (mass/ volume)Ordered By: Leonor Aldrich on 09-21-2024 Potassium (Unsp spec) [Mass/Vol] 3.6 mmol/L 3.3-5.1 [facility] Protein Test strip Ql (U)Ord ered By: Leonor Aldrich on 09-21-2024 Protein Ql (U) Negative Negative [facility] RBC Auto (Bld) [#/Vol]Ordere d By: Leonor Aldrich on 09-21-2024 RBC (Bld) [#/Vol] 4.77 10*6/uL 4.6-6.2 [facility] Screening total cholesterol/ high density lipoprotein (HDL) cholesterol ratioOrdered By: Leonor Aldrich on 09-21-2024 Cholesterol.total/Chol esterol in HDL [Mass ratio] 5.74 {ratio} [facility] Serum creatinine measurement (mass/volume)Ordered By: Leonor Aldrich on 09-21-2024 Creatinine [Mass/Vol] 0.90 mg/dL 0.70-1.20 [facility] Serum globulin measurementOr dered By: Leonor Aldrich on 09-21-2024 Globulin (S) [Mass/Vol] 3.2 g/dL 2.2-4.2 [facility] Serum glucose measurement (m ass/volume)Ordered By: Leonor Aldrich on 09-21-2024 Glucose [Mass/Vol] 107 mg/dL High 70-99 [facility] Serum or plasma alanine steel otransferase (ALT) measurementOrdered By: Leonor Aldrich on 09-21-2024 ALT [Catalytic activity/Vol] 20 U/L <47 [facility] Serum or plasma albumin emre urement (mass/volume)Ordered By: Leonor Aldrich on 09-21-2024 Albumin [Mass/Vol] 3.9 g/dL 3.4-4.8 [facility] Serum or plasma albumin/glob ulin mass ratioOrdered By: Leonor Aldrich on 09-21-2024 Albumin/Globulin [Mass ratio] 1.2 {ratio} 0.9-2.4 [facility] Serum or plasma alkaline quin sphatase measurementOrdered By: Leonor Aldrich on 09-21-2024 ALP [Catalytic activity/Vol] 96 U/L 40-129 [facility] Serum or plasma calcium emre urement (mass/volume)Ordered By: Leonor Aldrich on 09-21-2024 Calcium [Mass/Vol] 9.3 mg/dL 7.6-11.0 [facility] Serum or plasma cholesterol in HDL measurement (mass/volume)Ordered By: Leonor Aldrich on 09-21-2024 Cholesterol in HDL [Mass/Vol] 28 mg/dL Low >40 [facility] Comment on above: National Cholesterol Education Program (NCEP) guidelines:<40 mg/dL: Low HDL-cholesterol (major risk factor for CHD)>= 60 mg/dL: High HDL-cholesterol (negative risk factor for CHD)HDL-cholesterol is affected by a number of factors, e.g. smoking, exercise, hormones, sex and age. Serum or plasma cholesterol measurement (mass/volume)Ordered By: Leonor Aldrich on 09-21-2024 Cholesterol [Mass/Vol] 159 mg/dL <201 [facility] Comment on above: Cholesterol level, D esirable <200 mg/dLBorderline high cholesterol 200-239 mg/dLHigh cholesterol >=240 mg/dLRecommendations of the NCEP Adult Treatment Panel for the following risk-cutoff thresholds for the [place] population. Serum or plasma thyroperoxid ase antibody assay (units/volume)Ordered By: Leonor Aldrich on 09-21-2024 TPO Ab Qn 11 [IU]/mL 0-34 [facility] Comment on above: Performed at: [address] Director: Boston Aguirre PhD, Phone: [phone] Serum or plasma urea nitroge n measurement (mass/volume)Ordered By: Leonor Aldrich on 09-21-2024 Urea nitrogen [Mass/Vol] 15 mg/dL 4-19 [facility] Sodium levelOrdered By: Leonor Aldrich on 09-21-2024 Sodium [Moles/Vol] 138 mmol/L 133-145 [facility] Squamous epithelial cells de tection in urine sediment by light microscopyOrdered By: Leonor Aldrich on 09-21-2024 Epithelial cells.squamous LM Ql (Urine sed) 0 SEEN /hpf 0-5 [facility] T4 Free Directon 09-21-2024 T4 FREE DIRECT 0.80 ng/dL Normal 0.76-1.46 [facility] Comment on above: Order Comment: Order Date: 09/21/24 Order Info: [id number] - CMP Order Info: [id number] - LIPID Order Info: [id number] - MG Order Info: [id number] - TSH Order Info: [id number] - T4F Performed By: #### L 506.0400 #### [facility] [address] [place], [place], [address] T4 freeOrdered By: Leonor oconnell on 09-21-2024 Free T4 [Mass/Vol] 0.80 ng/dL 0.76-1.46 [facility] TSH DL <= 0.005 mIU/L QnOrde red By: Leonor Aldrich on 09-21-2024 TSH Qn 3.040 uIU/mL 0.300-4.20 0 [facility] Thyroid Stim Hormone (TSH)on 09-21-2024 TSH 3.040 uIU/mL Normal 0.300-4.20 0 [facility] Comment on above: Order Comment: Order Date: 09/21/24Order Info: [id number] - CMPOrder Info: [id number] - LIPIDOrder Info: [id number] - MGOrder Info: [id number] - TSHOrder Info: [id number] - T4F Performed By: #### L 100.0100, L500.2500 #### [facility] [address] [place], [place], [address] Total proteinOrdered By: Silvano Aldrich on 09-21-2024 Protein [Mass/Vol] 7.1 g/dL 5.9-8.4 [facility] Triglycerides measurementOrd ered By: Leonor Aldrich on 09-21-2024 Triglyceride [Mass/Vol] 276 mg/dL High <199 [facility] Comment on above: The drugs N-Acetylcy steine and Metamizole may falsely depress this assay. Normal range: <150 mg/dLBorderline High: 150-199 mg/dLHigh: 200-499 mg/dLVery High: >500 mg/dL Urinalysis, Completeon 09-21 BACTERIA 0 SEEN Normal None Seen [facility] Comment on above: Order Comment: CLEAN CATCH Performed By: #### L 400.0001 #### [facility] [address] [place], [place], [address] EPI,SQUAMOUS 0 SEEN Normal 0-5 [facility] Comment on above: Order Comment: CLEAN CATCH Performed By: #### L 400.0001 #### [facility] [address] [place], [address] Mucus Ql (Urine sed) 0 SEEN Normal [facility] Comment on above: Order Comment: CLEAN CATCH Performed By: #### L 400.0001 #### [facility] [address] [place], [address] RBC 0 SEEN Normal 0-5 [facility] Comment on above: Order Comment: CLEAN CATCH Performed By: #### L 400.0001 #### [facility] [address] [place], [address] WBC 0 SEEN Normal 0-5 [facility] Comment on above: Order Comment: CLEAN CATCH Performed By: #### L 400.0001 #### [facility] [address] [place], [place], [address] Urine clarityOrdered By: Silvano Aldrich on 09-21-2024 Clarity (U) Clear Clear [facility] Urine color determinationOrd ered By: Leonor Aldrich on 09-21-2024 Color (U) Yellow Yellow [facility] Urine glucose detectionOrder ed By: Leonor Aldrich on 09-21-2024 Glucose Ql (U) Normal mg/dl Normal [facility] Urine leukocyte esterase det ection by dipstickOrdered By: Leonor Aldrich on 09-21-2024 Leukocyte esterase Test strip Ql (U) Negative Negative [facility] Urine pHOrdered By: Leonor levy on 09-21-2024 pH (U) 6.0 [pH] 5.0 - 8.0 [facility] Urine sediment bacteria coun t by microscopy (number/high power field)Ordered By: Leonor Aldrich on 09-21-2024 Bacteria LM.HPF (Urine sed) [#/Area] 0 /[HPF] None Seen [facility] Urine specific gravity measu rementOrdered By: Leonor Aldrich on 09-21-2024 Specific gravity (U) [Rel density] 1.020 1.002-1.03 0 [facility] Urine urobilinogen measureme ntOrdered By: Leonor Aldrich on 09-21-2024 Urobilinogen Ql (U) Normal mg/dl Normal [facility] Vitamin D,25 Hydroxyon 09-21 Vitamin D 25-OH 59.6 ng/mL Normal 30-100 [facility] Comment on above: Order Comment: Order Date: 09/21/24Order Info: [id number] - CMPOrder Info: [id number] - LIPIDOrder Info: [id number] - MGOrder Info: [id number] - TSHOrder Info: [id number] - T4F Result Comment: Chrissy min D Status Deficiency: <20 ng/mL (50nmol/L) Insufficiency: 20-30 ng/mL (50-75 nmol/L) Sufficiency: 30-100 ng/mL (75-250 nmol/L) Toxicity: >100 ng/mL (>250 nmol/L) Performed By: #### L 100.0100, L500.2500 #### [facility] [address] [place], [place], [address] White blood cell (WBC) count Ordered By: Leonor Aldrich on 09-21-2024 WBC (Bld) [#/Vol] 7.6 10*3/uL 4.4-11.0 [facility] White blood cell countOrdere d By: Leonor Aldrich on 09-21-2024 White blood cell count 0 SEEN /hpf 0-5 [facility] OT General Evaluationon OT General Evaluation [facility] Occupational Therapy [address] [place] [address] / REHABILITATION SERVICES INITIAL EVALUATION MR#: [id number] Acct: [id number] Name: RICHI HU Rep #: [id number] : 1955 69 From: Susie WEI/L, CHT Referring Dr.: Dr. Leonor Aldrich MD Status: REG RCR Insurance: [facility] Date: SELF PAY INSURANCE Patient's Visit Information Visit Information Visit Information: RICHI HU is a 69 year old M, referred to Occupational Therapy by Dr. Leonor Aldrich MD, with a diagnosis of cellulitis, Peripheral edema, Lymphedema. Date of Evaluation: 09/05/24 Occupational Therapist: Susie Falcon, OTR/L, CHT Subjective Subjective: This 69 year old male was seen for OT eval with dx of LE lymphedema. pt states he had a stroke in 2018 and he feels his swelling has been [...] lymphostatica and hyperpigmentation. Pt recent d.c from [facility] with dx of Cellulitis finished his antibiotic [...] to en (more content not included)... Normal [facility] Echo Complete W/ Contraston 08-25-2024 Echo Complete W/ Contrast [facility] [address] [place] [address] Echo Complete W/ Contrast 08/25/24 1407 MR#: [id number] Acct: [id number] Name: RICHI HU Rep #: [id number] : 1955 69 From: Terell Shore MD Attending Dr: Taylor Patel MACHINE APPLICATOR CEMENTER-C Status: REG C LI Ordering Dr: Taylor Patel MACHINE APPLICATOR CEMENTER MACHINE APPLICATOR CEMENTER-C Date: 08/25/24 Location: [facility] Sex: M C [...] 08/25/24 1604 Date Terell Shore MD CC: MACHINE APPLICATOR CEMENTER-C Taylor Patel; Dr. Omid Colindres MD Date Dictated: 08/25/24 1407 Date Transcribed: 08/25/241603 Security Controls Assessor: Signed Normal [facility] Echocardiogram study reportO rdered By: Terell Shore on 08-25-[address] [facility] [address] [place] [address] Echo Complete W/ Contrast 08/25/241406 MR#: [id number] Acct: [id number] Name: RICHI HU Rep #:[id number] : 1955 69 From: Terell Small Attending Dr: JOSE Palmer S tatus: REG CLI Ordering Dr: Taylor Patel NP Eren e: 08/25/24 Location: [facility] Sex: M C Admitted: [...] 1604 Date _ Terell Shore MD CC: MACHINE APPLICATOR CEMENTER-C Taylor Patel; Dr. Omid Colindres MD ~ Date Dictated: 08/25/24 1407 Date Transcribed: 08/25/24 1604 Security Controls Assessor: Signed [facility] Work Phone: Venous duplex ultrasound rep ortOrdered By: Adi Navas on 08-17-[address] [facility] [place] [address] Venous Duplex US, Unilateral 08/16/24 1332 MR#: [id number] Acct: [id number] Name: RICHI HU Rep #:[id number] : 1955 69 From: Adi Navas MD Attending Dr: Dr. eLonor Aldrich MD Status: REG CLI Ordering Dr: [...] preliminary report was called and/or faxed to [facility]. VL/Venous Duplex US, Unilateral Interpretation Summary [...] Colindres Performed By: Mike Lerma, CLAIRE 08/17/24 230 Date _ Adi Navas MD CC: Dr. Leonor Aldrich MD; Dr. Omid Colindres MD ~ Date Dictated: 08/16/24 1332 Date Transcribed: 08/17/242303 Security Controls Assessor: Signed [facility] Other Phone: Absolute lymphocyte countOrd ered By: Taylor Patel on 08-16-2024 Lymphocytes Auto (Unsp spec) [#/Vol] 2.37 10*3/uL 0.83-4.51 [facility] Absolute neutrophil countOrd ered By: Taylor Patel on 08-16-2024 Neutrophils (Bld) [#/Vol] 5.8 10*3/uL 2.0-7.7 [facility] Anion gap in Serum or Plasma Ordered By: Taylor Patel on 08-16-2024 Anion gap [Moles/Vol] 12 mmol/L 5-15 [facility] Automated lymphocyte count a s percentage of total leukocytesOrdered By: Taylor Patel on 08-16-2024 Lymphocytes/100 WBC Auto (Unsp spec) 26.0 % 19-41 [facility] BUN/creatinine ratioOrdered By: Taylor Patel on 08-16-2024 Urea nitrogen/Creatinine [Mass ratio] 20.7 mg/mg High 10-20 [facility] Basic Metabolic Profile (BMP )on 08-16-2024 BUN/CRE 20.7 RATIO High 12-19 [facility] Comment on above: Performed By: #### L 500.2500 #### [facility] [address] [place], [address] Calcium [Mass/Vol] 9.3 mg/dL Normal 7.6-11.0 [facility] Comment on above: Performed By: #### L 500.2500 #### [facility] [address] [place], [address] Chloride [Moles/Vol] 100 mmol/L Normal 98-108 [facility] Comment on above: Performed By: #### L 500.2500 #### [facility] [address] [place], [address] CO2 [Moles/Vol] 25.5 mmol/L Normal 21.0-32.0 [facility] Comment on above: Performed By: #### L 500.2500 #### [facility] [address] [place], [address] Creatinine [Mass/Vol] 0.92 mg/dL Normal 0.70-1.20 [facility] Comment on above: Performed By: #### L 500.2500 #### [facility] [address] [place], [address] GAP 12 Normal 5-15 [facility] Comment on above: Performed By: #### L 500.2500 #### [facility] [address] [place], [address] GFR/1.73 sq M.predicted among non-blacks MDRD (S/P/Bld) [Vol rate/Area] 92 mL/min/{1.73_m2} Normal >60 [facility] Comment on above: Result Comment: mL/m in/1.73m2 CKD-EPI Creatinine Equation (2020) Performed By: #### L 500.2500 #### [facility] [address] [place], [address] Glucose [Mass/Vol] 118 mg/dL High 70-99 [facility] Comment on above: Performed By: #### L 500.2500 #### [facility] [address] [place], [address] Potassium [Moles/Vol] 3.9 mmol/L Normal 3.3-5.1 [facility] Comment on above: Performed By: #### L 500.2500 #### [facility] [address] [place], [address] Sodium [Moles/Vol] 138 mmol/L Normal 133-145 [facility] Comment on above: Performed By: #### L 500.2500 #### [facility] [address] [place], [address] Urea nitrogen [Mass/Vol] 19 mg/dL Normal 4-19 [facility] Comment on above: Performed By: #### L 500.2500 #### [facility] [address] [place], [address] Basophil percentageOrdered B y: Taylor Patel on 08-16-2024 Basophils/100 WBC (Bld) 0.8 % 0-1 [facility] CBC W/Diff, Automatedon 07-31 Absolute Lymph 2.37 X10 3/uL Normal 0.83-4.51 [facility] Comment on above: Performed By: #### L 500.2500 #### [facility] [address] [place], [address] Absolute Neut 5.8 X10 3/uL Normal 2.0-7.7 [facility] Comment on above: Performed By: #### L 500.2500 #### [facility] [address] [place], [address] Basophils/100 WBC (Bld) 0.8 % Normal 0-1 [facility] Comment on above: Performed By: #### L 500.2500 #### [facility] [address] [place], [address] Eosinophils/100 WBC (Bld) 1.9 % Normal 0-5 [facility] Comment on above: Performed By: #### L 500.2500 #### [facility] [address] [place], [address] Erythrocyte distribution width (RBC) [Ratio] 12.8 % Normal 11.6-14.6 [facility] Comment on above: Performed By: #### L 500.2500 #### [facility] [address] [place], [address] Hematocrit (Bld) [Volume fraction] 42.8 % Normal 40-54 [facility] Comment on above: Performed By: #### L 500.2500 #### [facility] [address] [place], [address] Hemoglobin (Bld) [Mass/Vol] 14.7 g/dL Normal 13.0-16.5 [facility] Comment on above: Performed By: #### L 500.2500 #### [facility] [address] [place], [address] IG% 0.400 Normal 0.0-0.9 [facility] Comment on above: Result Comment: IG% - Immature Granulocytes (promyelocytes, myelocytes and metamyelocytes) > 1% indicates that a LEFT SHIFT is Present. Performed By: #### L 500.2500 #### [facility] [address] [place], [address] Lymphocytes/100 WBC (Bld) 26.0 % Normal 19-41 [facility] Comment on above: Performed By: #### L 500.2500 #### [facility] [address] [place], [address] MCH (RBC) [Entitic mass] 32.2 pg High 27.0-32.0 [facility] Comment on above: Performed By: #### L 500.2500 #### [facility] [address] [place], [address] MCHC (RBC) [Mass/Vol] 34.3 g/dL Normal 32-36 [facility] Comment on above: Performed By: #### L 500.2500 #### [facility] [address] [place], [address] MCV (RBC) [Entitic vol] 93.9 fL Normal 80-94 [facility] Comment on above: Performed By: #### L 500.2500 #### [facility] [address] [address] [place], [address] Monocytes/100 WBC (Bld) 7.3 % Normal 0-10 [facility] Comment on above: Performed By: #### L 500.2500 #### [facility] [address] [place], [address] Neutrophils/100 WBC (Bld) 63.6 % Normal 47-70 [facility] Comment on above: Performed By: #### L 500.2500 #### [facility] [address] [place], [address] Nucleated RBC (Bld) [#/Vol] 0 10*3/uL Normal 0-5 [facility] Comment on above: Performed By: #### L 500.2500 #### [facility] [address] [place], [address] Platelet mean volume (Bld) [Entitic vol] 9.1 fL Normal 6.2-12.0 [facility] Comment on above: Performed By: #### L 500.2500 #### [facility] [address] [place], [address] Platelets (Bld) [#/Vol] 298 10*3/uL Normal 150-450 [facility] Comment on above: Performed By: #### L 500.2500 #### [facility] [address] [place], [address] RBC (Bld) [#/Vol] 4.56 10*6/uL Low 4.6-6.2 [facility] Comment on above: Performed By: #### L 500.2500 #### [facility] [address] [place], [address] RDW SD 44.0 fl High 35.1-43.9 [facility] Comment on above: Performed By: #### L 500.2500 #### [facility] [address] [place], [place], [address] WBC (Bld) [#/Vol] 9.1 10*3/uL Normal 4.4-11.0 [facility] Comment on above: Performed By: #### L 500.2500 #### [facility] [address] [place], [place], [address] Carbon dioxide, total [Moles /volume] in Central venous bloodOrdered By: Taylor Patel on 08-16-2024 CO2 [Moles/Vol] 25.5 mmol/L 21.0-32.0 [facility] Cardiology Visit Reporton Cardiology Visit Report [facility] 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 [facility] Medical History (Reviewed 08/16/24 @ 10:40 by Taylor Patel MACHINE APPLICATOR CEMENTER, MACHINE APPLICATOR CEMENTER-C) CPAP (continuous positive airway pressure) dependence Sleep apnea Congestive heart failure (CHF) Hypertension Impacted cerumen of both ears Cholecystitis History of CVA (cerebrovascular accident) (04/2018) Persistent atrial fibrillation Lumbar stenosis without neurogenic claudication COVID-19 virus detected (02/17/20) Dysfun (more content not included)... Normal [facility] Chloride assayOrdered By: Dell Patel on 08-16-2024 Chloride [Moles/Vol] 100 mmol/L 98-108 [facility] Eosinophil percentageOrdered By: Taylor Patel on 08-16-2024 Eosinophils/100 WBC (Bld) 1.9 % 0-5 [facility] Erythrocyte distribution wid th ratioOrdered By: Taylor Patel on 08-16-2024 Erythrocyte distribution width (RBC) [Ratio] 12.8 % 11.6-14.6 [facility] Erythrocyte distribution wid th standard deviationOrdered By: Taylor Patel on 08-16-2024 Erythrocyte distribution width (RBC) [Ratio] 44.0 fl High 35.1-43.9 [facility] Glomerular filtration rate ( GFR) estimation/1.73 sq m using serum, plasma, or whole bOrdered By: Taylor Patel on 08-16-2024 GFR/1.73 sq M.predicted among non-blacks MDRD (S/P/Bld) [Vol rate/Area] 92 mL/min/{1.73_m2} >60 [facility] Comment on above: mL/min/1.73m2 CKD-EP I Creatinine Equation (2020) Hematocrit Auto (Bld) [Volum e fraction]Ordered By: Taylor Patel on 08-16-2024 Hematocrit (Bld) [Volume fraction] 42.8 % 40-54 [facility] Hemoglobin measurementOrdere d By: Taylor Patel on 08-16-2024 Hemoglobin (Bld) [Mass/Vol] 14.7 g/dL 13.0-16.5 [facility] Immature granulocytes/100 WB C Auto (Bld)Ordered By: Taylor Patel on 08-16-2024 Immature granulocytes/100 WBC (Bld) 0.400 % 0.0-0.9 [facility] Comment on above: IG% - Immature Granu locytes (promyelocytes, myelocytes and metamyelocytes) > 1% indicates that a LEFT SHIFT is Present. MCV (mean corpuscular volume ) determinationOrdered By: Taylor Patel on 08-16-2024 MCV (RBC) [Entitic vol] 93.9 fL 80-94 [facility] Mean corpuscular hemoglobin (MCH) determinationOrdered By: Taylor Patel on 08-16-2024 MCH (RBC) [Entitic mass] 32.2 pg High 27.0-32.0 [facility] Mean corpuscular hemoglobin concentration (MCHC) determinationOrdered By: Taylor Patel on 08-16-2024 MCHC (RBC) [Mass/Vol] 34.3 g/dL 32-36 [facility] Mean platelet volume determi nationOrdered By: Taylor Patel on 08-16-2024 Platelet mean volume (Bld) [Entitic vol] 9.1 fL 6.2-12.0 [facility] Monocyte percentageOrdered B y: Taylor Patel on 08-16-2024 Monocytes/100 WBC (Bld) 7.3 % 0-10 [facility] Neutrophil percentageOrdered By: Taylor Patel on 08-16-2024 Neutrophils/100 WBC (Bld) 63.6 % 47-70 [facility] Nucleated red blood cell per centageOrdered By: Taylor Patel on 08-16-2024 Nucleated RBC/100 WBC (Bld) [Ratio] 0 % 0-5 [facility] Platelet countOrdered By: Dell Patel on 08-16-2024 Platelets (Bld) [#/Vol] 298 10*3/uL 150-450 [facility] Potassium measurement (mass/ volume)Ordered By: Taylor Patel on 08-16-2024 Potassium (Unsp spec) [Mass/Vol] 3.9 mmol/L 3.3-5.1 [facility] RBC Auto (Bld) [#/Vol]Ordere d By: Taylor Patel on 08-16-2024 RBC (Bld) [#/Vol] 4.56 10*6/uL Low 4.6-6.2 [facility] Serum creatinine measurement (mass/volume)Ordered By: Taylor Patel on 08-16-2024 Creatinine [Mass/Vol] 0.92 mg/dL 0.70-1.20 [facility] Serum glucose measurement (m ass/volume)Ordered By: Taylor Patel on 08-16-2024 Glucose [Mass/Vol] 118 mg/dL High 70-99 [facility] Serum or plasma calcium emre urement (mass/volume)Ordered By: Taylor Patel on 08-16-2024 Calcium [Mass/Vol] 9.3 mg/dL 7.6-11.0 [facility] Serum or plasma urea nitroge n measurement (mass/volume)Ordered By: Taylor Patel on 08-16-2024 Urea nitrogen [Mass/Vol] 19 mg/dL 4-19 [facility] Sodium levelOrdered By: Crista Patel on 08-16-2024 Sodium [Moles/Vol] 138 mmol/L 133-145 [facility] Venous Duplex US, Unilateral on 08-16-2024 Venous Duplex US, Unilateral [facility] [address] [place] [address] Venous Duplex US, Unilateral 08/16/24 1332 MR#: [id number] Acct: [id number] Name: RICHI HU Rep #: [id number] : 1955 69 From: Adi Navas MD [...] preliminary report was called and/or faxed to [facility]. VL/Venous Duplex US, Unilateral Interpretation Summary [...] Physician: Omid Colindres Performed By: Mike Lerma, RVT 08/17/24 2304 Date Adi Navas MD CC: Dr. Leonor Aldrich MD; Dr. Omid Colindres MD Date Dictated: 08/16/24 1332 Date Transcribed: 08/17/24 2304 Security Controls Assessor: Signed Normal [facility] White blood cell (WBC) count Ordered By: Taylor Patel on 08-16-2024 WBC (Bld) [#/Vol] 9.1 10*3/uL 4.4-11.0 [facility] Culture, Blood (WB)on 2024 CUB Blood cultures x2, f rom two different sites No growth in 5 days. Normal [facility] Comment on above: Performed By: #### M 200.1000 ####[facility] [address] [place], [address] Performed By: #### L 500.2500 #### [facility] [address] [place], [address] Anion gap in Serum or Plasma Ordered By: Seb Cortes on 08-10-2024 Anion gap [Moles/Vol] 13 mmol/L 5-15 [facility] BUN/creatinine ratioOrdered By: Seb Cortes on 08-10-2024 Urea nitrogen/Creatinine [Mass ratio] 20.4 mg/mg High 10-20 [facility] Basic Metabolic Profile (BMP )on 08-10-2024 BUN/CRE 20.4 RATIO High 10-20 [facility] Comment on above: Performed By: #### L 100.0100, L500.2500 #### [facility] [address] [place], [address] Calcium [Mass/Vol] 8.7 mg/dL Normal 7.6-11.0 [facility] Comment on above: Performed By: #### L 100.0100, L500.2500 #### [facility] [address] [place], [address] Chloride [Moles/Vol] 100 mmol/L Normal 98-108 [facility] Comment on above: Performed By: #### L 100.0100, L500.2500 #### [facility] [address] [address] [place], [address] CO2 [Moles/Vol] 24.1 mmol/L Normal 21.0-32.0 [facility] Comment on above: Performed By: #### L 100.0100, L500.2500 #### [facility] [address] [place], [address] Creatinine [Mass/Vol] 0.87 mg/dL Normal 0.70-1.20 [facility] Comment on above: Performed By: #### L 100.0100, L500.2500 #### [facility] [address] [place], [address] ECRCL 155.97 ml/min Normal 50-250 [facility] Comment on above: Performed By: #### L 100.0100, L500.2500 #### [facility] [address] [place], [address] GAP 13 Normal 5-15 [facility] Comment on above: Performed By: #### L 100.0100, L500.2500 #### [facility] [address] [place], [address] GFR/1.73 sq M.predicted among non-blacks MDRD (S/P/Bld) [Vol rate/Area] 95 mL/min/{1.73_m2} Normal >60 [facility] Comment on above: Result Comment: mL/m in/1.73m2 CKD-EPI Creatinine Equation (2020) Performed By: #### L 100.0100, L500.2500 #### [facility] [address] [place], [address] Glucose [Mass/Vol] 114 mg/dL High 70-99 [facility] Comment on above: Performed By: #### L 100.0100, L500.2500 #### [facility] [address] [place], [address] Potassium [Moles/Vol] 3.3 mmol/L Normal 3.3-5.1 [facility] Comment on above: Performed By: #### L 100.0100, L500.2500 #### [facility] [address] [place], [address] Sodium [Moles/Vol] 137 mmol/L Normal 133-145 [facility] Comment on above: Performed By: #### L 100.0100, L500.2500 #### [facility] [address] [place], [address] Urea nitrogen [Mass/Vol] 18 mg/dL Normal 4-19 [facility] Comment on above: Performed By: #### L 100.0100, L500.2500 #### [facility] [address] [place], [address] Carbon dioxide, total [Moles /volume] in Central venous bloodOrdered By: Seb Cortes on 08-10-2024 CO2 [Moles/Vol] 24.1 mmol/L 21.0-32.0 [facility] Chloride assayOrdered By: Lisette Cortes on 08-10-2024 Chloride [Moles/Vol] 100 mmol/L 98-108 [facility] [facility] Dis[facility] Instructionon 07-31 Discharge Instruction [facility] Medical Records Department [address] [place] [address] Instructions for Home/Discharge Instructions 08/10/24 1150 MR#: [id number] Acct: [id number] Name: RICHI HU Rep #: [id number] : 1955 69 From: Seb Cortes DO PCP: Dr. Omid Cloindres MD Status:ADM IN Discharge Instructions Diet Discharge [...] orally every evening with food: Fax to [facility]: losartan 50 mg tablet 50 mg [...] CC: Dr. Omid Colindres MD Signed Normal [facility] Glomerular filtration rate ( GFR) estimation/1.73 sq m using serum, plasma, or whole bOrdered By: Seb Cortes on 08-10-2024 GFR/1.73 sq M.predicted among non-blacks MDRD (S/P/Bld) [Vol rate/Area] 95 mL/min/{1.73_m2} >60 [facility] Comment on above: mL/min/1.73m2 CKD-EP I Creatinine Equation (2020) Potassium measurement (mass/ volume)Ordered By: Seb Cortes on 08-10-2024 Potassium (Unsp spec) [Mass/Vol] 3.3 mmol/L 3.3-5.1 [facility] Serum creatinine measurement (mass/volume)Ordered By: Seb Cortes on 08-10-2024 Creatinine [Mass/Vol] 0.87 mg/dL 0.70-1.20 [facility] Serum glucose measurement (m ass/volume)Ordered By: Seb Cortes on 08-10-2024 Glucose [Mass/Vol] 114 mg/dL High 70-99 [facility] Serum or plasma calcium emre urement (mass/volume)Ordered By: Seb Cortes on 08-10-2024 Calcium [Mass/Vol] 8.7 mg/dL 7.6-11.0 [facility] Serum or plasma urea nitroge n measurement (mass/volume)Ordered By: Seb Cortes on 08-10-2024 Urea nitrogen [Mass/Vol] 18 mg/dL 4-19 [facility] Sodium levelOrdered By: Seb Cortes on 08-10-2024 Sodium [Moles/Vol] 137 mmol/L 133-145 [facility] Basic Metabolic Profile (BMP )on 08-09-2024 BUN/CRE 18.4 RATIO Normal 10-20 [facility] Comment on above: Performed By: #### L 100.0100, L500.2500 #### [facility] [address] [place], [address] Calcium [Mass/Vol] 8.6 mg/dL Normal 7.6-11.0 [facility] Comment on above: Performed By: #### L 100.0100, L500.2500 #### [facility] [address] [place], [address] Chloride [Moles/Vol] 100 mmol/L Normal 98-108 [facility] Comment on above: Performed By: #### L 100.0100, L500.2500 #### [facility] [address] [place], [address] CO2 [Moles/Vol] 25.2 mmol/L Normal 21.0-32.0 [facility] Comment on above: Performed By: #### L 100.0100, L500.2500 #### [facility] [address] [place], [address] Creatinine [Mass/Vol] 0.91 mg/dL Normal 0.70-1.20 [facility] Comment on above: Performed By: #### L 100.0100, L500.2500 #### [facility] [address] [place], [address] ECRCL 149.12 ml/min Normal 50-250 [facility] Comment on above: Performed By: #### L 100.0100, L500.2500 #### [facility] [address] [place], [address] GAP 11 Normal 5-15 [facility] Comment on above: Performed By: #### L 100.0100, L500.2500 #### [facility] [address] [place], [address] GFR/1.73 sq M.predicted among non-blacks MDRD (S/P/Bld) [Vol rate/Area] 92 mL/min/{1.73_m2} Normal >60 [facility] Comment on above: Result Comment: mL/m in/1.73m2 CKD-EPI Creatinine Equation (2020) Performed By: #### L 100.0100, L500.2500 #### [facility] [address] [place], [address] Glucose [Mass/Vol] 111 mg/dL High 70-99 [facility] Comment on above: Performed By: #### L 100.0100, L500.2500 #### [facility] [address] [place], [address] Potassium [Moles/Vol] 3.6 mmol/L Normal 3.3-5.1 [facility] Comment on above: Result Comment: Hemo lysis present, Results??could be affected. ?? Performed By: #### L 100.0100, L500.2500 #### [facility] [address] [place] [address] [place], [address] Sodium [Moles/Vol] 136 mmol/L Normal 133-145 [facility] Comment on above: Performed By: #### L 100.0100, L500.2500 #### [facility] [address] [place], [address] Urea nitrogen [Mass/Vol] 17 mg/dL Normal 4-19 [facility] Comment on above: Performed By: #### L 100.0100, L500.2500 #### [facility] [address] [place], [address] Absolute lymphocyte countOrd ered By: Seb Cortes on 08-08-2024 Lymphocytes Auto (Unsp spec) [#/Vol] 1.91 10*3/uL 0.83-4.51 [facility] Absolute neutrophil countOrd ered By: Seb Cortes on 08-08-2024 Neutrophils (Bld) [#/Vol] 7.2 10*3/uL 2.0-7.7 [facility] Automated lymphocyte count a s percentage of total leukocytesOrdered By: Seb Cortes on 08-08-2024 Lymphocytes/100 WBC Auto (Unsp spec) 18.1 % Low 19-41 [facility] Basic Metabolic Profile (BMP )on 08-08-2024 BUN/CRE 16.3 RATIO Normal 10-20 [facility] Comment on above: Performed By: #### L 100.0100, L500.2500 #### [facility] [address] [place], [address] Calcium [Mass/Vol] 8.8 mg/dL Normal 7.6-11.0 [facility] Comment on above: Performed By: #### L 100.0100, L500.2500 #### [facility] [address] [place], [address] Chloride [Moles/Vol] 100 mmol/L Normal 98-108 [facility] Comment on above: Performed By: #### L 100.0100, L500.2500 #### [facility] [address] [place], [address] CO2 [Moles/Vol] 27.3 mmol/L Normal 21.0-32.0 [facility] Comment on above: Performed By: #### L 100.0100, L500.2500 #### [facility] [address] [place], [address] Creatinine [Mass/Vol] 0.94 mg/dL Normal 0.70-1.20 [facility] Comment on above: Performed By: #### L 100.0100, L500.2500 #### [facility] [address] [place], [address] ECRCL 144.36 ml/min Normal 50-250 [facility] Comment on above: Performed By: #### L 100.0100, L500.2500 #### [facility] [address] [place], [address] GAP 11 Normal 5-15 [facility] Comment on above: Performed By: #### L 100.0100, L500.2500 #### [facility] [address] [place], [address] GFR/1.73 sq M.predicted among non-blacks MDRD (S/P/Bld) [Vol rate/Area] 89 mL/min/{1.73_m2} Normal >60 [facility] Comment on above: Result Comment: mL/m in/1.73m2 CKD-EPI Creatinine Equation (2020) Performed By: #### L 100.0100, L500.2500 #### [facility] [address] [place], [address] Glucose [Mass/Vol] 116 mg/dL High 70-99 [facility] Comment on above: Performed By: #### L 100.0100, L500.2500 #### [facility] [address] [place], [address] Potassium [Moles/Vol] 3.4 mmol/L Normal 3.3-5.1 [facility] Comment on above: Performed By: #### L 100.0100, L500.2500 #### [facility] [address] [place], [address] Sodium [Moles/Vol] 138 mmol/L Normal 133-145 [facility] Comment on above: Performed By: #### L 100.0100, L500.2500 #### [facility] [address] [place], [address] Urea nitrogen [Mass/Vol] 15 mg/dL Normal 4-19 [facility] Comment on above: Performed By: #### L 100.0100, L500.2500 #### [facility] [address] [place], [address] Basophil percentageOrdered B y: Seb Cortes on 08-08-2024 Basophils/100 WBC (Bld) 0.5 % 0-1 [facility] CBC W/Diff, Automatedon 06-0 Absolute Lymph 1.91 X10 3/uL Normal 0.83-4.51 [facility] Comment on above: Performed By: #### L 100.0100, L500.2500 #### [facility] [address] [place], [address] Absolute Neut 7.2 X10 3/uL Normal 2.0-7.7 [facility] Comment on above: Performed By: #### L 100.0100, L500.2500 #### [facility] [address] [place], [address] Basophils/100 WBC (Bld) 0.5 % Normal 0-1 [facility] Comment on above: Performed By: #### L 100.0100, L500.2500 #### [facility] [address] [place], [address] Eosinophils/100 WBC (Bld) 0.8 % Normal 0-5 [facility] Comment on above: Performed By: #### L 100.0100, L500.2500 #### [facility] [address] [place], [address] Erythrocyte distribution width (RBC) [Ratio] 13.2 % Normal 11.6-14.6 [facility] Comment on above: Performed By: #### L 100.0100, L500.2500 #### [facility] [address] [place], [address] Hematocrit (Bld) [Volume fraction] 38.4 % Low 40-54 [facility] Comment on above: Performed By: #### L 100.0100, L500.2500 #### [facility] [address] [place], [address] Hemoglobin (Bld) [Mass/Vol] 13.1 g/dL Normal 13.0-16.5 [facility] Comment on above: Performed By: #### L 100.0100, L500.2500 #### [facility] [address] [place], [address] IG% 0.800 Normal 0.0-0.9 [facility] Comment on above: Result Comment: IG% - Immature Granulocytes (promyelocytes, myelocytes and metamyelocytes) > 1% indicates that a LEFT SHIFT is Present. Performed By: #### L 100.0100, L500.2500 #### [facility] [address] [place], [address] Lymphocytes/100 WBC (Bld) 18.1 % Low 19-41 [facility] Comment on above: Performed By: #### L 100.0100, L500.2500 #### [facility] [address] [place], [address] MCH (RBC) [Entitic mass] 31.8 pg Normal 27.0-32.0 [facility] Comment on above: Performed By: #### L 100.0100, L500.2500 #### [facility] [address] [place], [address] MCHC (RBC) [Mass/Vol] 34.1 g/dL Normal 32-36 [facility] Comment on above: Performed By: #### L 100.0100, L500.2500 #### [facility] [address] [place], [address] MCV (RBC) [Entitic vol] 93.2 fL Normal 80-94 [facility] Comment on above: Performed By: #### L 100.0100, L500.2500 #### [facility] [address] [place], [address] Monocytes/100 WBC (Bld) 11.4 % High 0-10 [facility] Comment on above: Performed By: #### L 100.0100, L500.2500 #### [facility] [address] [place], [address] Neutrophils/100 WBC (Bld) 68.4 % Normal 47-70 [facility] Comment on above: Performed By: #### L 100.0100, L500.2500 #### [facility] [address] [place], [address] Nucleated RBC (Bld) [#/Vol] 0 10*3/uL Normal 0-5 [facility] Comment on above: Performed By: #### L 100.0100, L500.2500 #### [facility] [address] [place], [address] Platelet mean volume (Bld) [Entitic vol] 9.3 fL Normal 6.2-12.0 [facility] Comment on above: Performed By: #### L 100.0100, L500.2500 #### [facility] [address] [place], [address] Platelets (Bld) [#/Vol] 138 10*3/uL Low 150-450 [facility] Comment on above: Performed By: #### L 100.0100, L500.2500 #### [facility] [address] [place], [address] RBC (Bld) [#/Vol] 4.12 10*6/uL Low 4.6-6.2 [facility] Comment on above: Performed By: #### L 100.0100, L500.2500 #### [facility] [address] [place], [address] RDW SD 44.9 fl High 35.1-43.9 [facility] Comment on above: Performed By: #### L 100.0100, L500.2500 #### [facility] [address] [place], [address] WBC (Bld) [#/Vol] 10.5 10*3/uL Normal 4.4-11.0 [facility] Comment on above: Performed By: #### L 100.0100, L500.2500 #### [facility] [address] [place], [address] Electrocardiogram reportOrde red By: Richi Zimmerman on 08-08-2024 EKG study [facility] Cardiovascular Services [address] [place] [address] 12 Lead EKG 08/07/24 1119 MR#: [id number] Acct: [id number] Name: RICHI HU Rep #:[id number] : 1955 69 From: Richi alejandre MD Attending Dr: Dr. Seb Cortes DO Status: ADM IN Ordering Dr: David Stallworth DO Date: 10/24 Location: MS3 Sex: M C Admitted: 08/07/24 Test Reason [...] abnormality Abnormal ECG Confirmed by Richi Zimmerman ([id number]), telegraph editor CINDY CARLTON ([id number]) on 08/08/2024 9:35:57 AM Referred By: David Stallworth Confirmed By: Richi Zimmerman 08/08/24 0936 Date _ Richi Zimmerman MD CC: Dr. Seb Cortes DO; Dr. Omid Colindres MD; Dr. David Stallworth DO ~ Signed [facility] Other Phone: Eosinophil percentageOrdered By: Seb Cortes on 08-08-2024 Eosinophils/100 WBC (Bld) 0.8 % 0-5 [facility] Erythrocyte distribution wid th ratioOrdered By: Seb Cortes on 08-08-2024 Erythrocyte distribution width (RBC) [Ratio] 13.2 % 11.6-14.6 [facility] Erythrocyte distribution wid th standard deviationOrdered By: Seb Cortes on 08-08-2024 Erythrocyte distribution width (RBC) [Ratio] 44.9 fl High 35.1-43.9 [facility] Hematocrit Auto (Bld) [Volum e fraction]Ordered By: Seb Cortes on 08-08-2024 Hematocrit (Bld) [Volume fraction] 38.4 % Low 40-54 [facility] Hemoglobin measurementOrdere d By: Seb Cortes on 08-08-2024 Hemoglobin (Bld) [Mass/Vol] 13.1 g/dL 13.0-16.5 [facility] Immature granulocytes/100 WB C Auto (Bld)Ordered By: Seb Cortes on 08-08-2024 Immature granulocytes/100 WBC (Bld) 0.800 % 0.0-0.9 [facility] Comment on above: IG% - Immature Granu locytes (promyelocytes, myelocytes and metamyelocytes) > 1% indicates that a LEFT SHIFT is Present. MCV (mean corpuscular volume ) determinationOrdered By: Seb Cortes on 08-08-2024 MCV (RBC) [Entitic vol] 93.2 fL 80-94 [facility] Mean corpuscular hemoglobin (MCH) determinationOrdered By: Seb Cortes on 08-08-2024 MCH (RBC) [Entitic mass] 31.8 pg 27.0-32.0 [facility] Mean corpuscular hemoglobin concentration (MCHC) determinationOrdered By: Seb Cortes on 08-08-2024 MCHC (RBC) [Mass/Vol] 34.1 g/dL 32-36 [facility] Mean platelet volume determi nationOrdered By: Seb Cortes on 08-08-2024 Platelet mean volume (Bld) [Entitic vol] 9.3 fL 6.2-12.0 [facility] Monocyte percentageOrdered B y: Seb Cortes on 08-08-2024 Monocytes/100 WBC (Bld) 11.4 % High 0-10 [facility] Neutrophil percentageOrdered By: Seb Cortes on 08-08-2024 Neutrophils/100 WBC (Bld) 68.4 % 47-70 [facility] Nucleated red blood cell per centageOrdered By: Seb Cortes on 08-08-2024 Nucleated RBC/100 WBC (Bld) [Ratio] 0 % 0-5 [facility] Platelet countOrdered By: Lisette Cortes on 08-08-2024 Platelets (Bld) [#/Vol] 138 10*3/uL Low 150-450 [facility] RBC Auto (Bld) [#/Vol]Ordere d By: Seb Cortes on 08-08-2024 RBC (Bld) [#/Vol] 4.12 10*6/uL Low 4.6-6.2 [facility] White blood cell (WBC) count Ordered By: Seb Cortes on 08-08-2024 WBC (Bld) [#/Vol] 10.5 10*3/uL 4.4-11.0 [facility] 12 Lead EKGon 08-07-2024 12 Lead EKG [facility] Cardi[facility] Services [address] [place] [address] 12 Lead EKG 08/07/24 1119 MR#: [id number] Acct: [id number] Name: RICHI HU Rep #: [id number] : 1955 69 From: Richi Zimmerman MD Attending Dr: Dr. Seb Cortes DO Status: A DM IN Ordering Dr: David Stallworth DO Date: 08/07/24 Location: MS3 Sex: M C Admitted: 08/07/24 Test Reason [...] abnormality Abnormal ECG Confirmed by Richi Zimmerman ([id number]), telegraph editor CINDY CARLTON ([id number]) on 08/08/2024 9:35:57 AM Referred By: David Stallworth Confirmed By: Richi Zimmerman 08/08/24 0936 Date Richi Zimmerman MD CC: Dr. Seb Cortes DO; Dr. Omid Colindres MD; Dr. David Stallworth DO Signed Normal [facility] Absolute lymphocyte countOrd ered By: David Stallworth on 08-07-2024 Lymphocytes Auto (Unsp spec) [#/Vol] 1.65 10*3/uL 0.83-4.51 [facility] Absolute neutrophil countOrd ered By: David Stallworth on 08-07-2024 Neutrophils (Bld) [#/Vol] 9.0 10*3/uL High 2.0-7.7 [facility] Anion gap in Serum or Plasma Ordered By: Remus Basim on 08-07-2024 Anion gap [Moles/Vol] 14 mmol/L 5-15 [facility] Automated lymphocyte count a s percentage of total leukocytesOrdered By: Remus Basim on 08-07-2024 Lymphocytes/100 WBC Auto (Unsp spec) 14.0 % Low 19-41 [facility] BUN/creatinine ratioOrdered By: Remus Basim on 08-07-2024 Urea nitrogen/Creatinine [Mass ratio] 21.6 mg/mg High 10-20 [facility] Basic Metabolic Profile (BMP )on 08-07-2024 BUN/CRE 21.6 RATIO High - [facility] Comment on above: Performed By: #### L 503.7505, L503.6005, L100.0100, L500.2500 ####[facility] [address] [place], [address] Calcium [Mass/Vol] 9.3 mg/dL Normal 7.6-11.0 [facility] Comment on above: Performed By: #### L 503.7505, L503.6005, L100.0100, L500.2500 ####[facility] [address] [place], [address] Chloride [Moles/Vol] 100 mmol/L Normal 98-108 [facility] Comment on above: Performed By: #### L 503.7505, L503.6005, L100.0100, L500.2500 ####[facility] [address] [place], [address] CO2 [Moles/Vol] 21.5 mmol/L Normal 21.0-32.0 [facility] Comment on above: Performed By: #### L 503.7505, L503.6005, L100.0100, L500.2500 ####[facility] [address] [place], [address] Creatinine [Mass/Vol] 0.81 mg/dL Normal 0.70-1.20 [facility] Comment on above: Performed By: #### L 503.7505, L503.6005, L100.0100, L500.2500 ####[facility] [address] [place], [address] ECRCL 163.39 ml/min Normal 50-250 [facility] Comment on above: Performed By: #### L 503.7505, L503.6005, L100.0100, L500.2500 ####[facility] [address] [place], [address] GAP 14 Normal 5-15 [facility] Comment on above: Performed By: #### L 503.7505, L503.6005, L100.0100, L500.2500 ####[facility] [address] [place], [address] GFR/1.73 sq M.predicted among non-blacks MDRD (S/P/Bld) [Vol rate/Area] 96 mL/min/{1.73_m2} Normal >60 [facility] Comment on above: Result Comment: mL/m in/1.73m2 CKD-EPI Creatinine Equation (2020) Performed By: #### L 503.7505, L503.6005, L100.0100, L500.2500 ####[facility] [address] [place], [address] Glucose [Mass/Vol] 99 mg/dL Normal 70-99 [facility] Comment on above: Performed By: #### L 503.7505, L503.6005, L100.0100, L500.2500 ####[facility] [address] [place], [address] Potassium [Moles/Vol] 3.5 mmol/L Normal 3.3-5.1 [facility] Comment on above: Performed By: #### L 503.7505, L503.6005, L100.0100, L500.2500 ####[facility] [address] [place], [address] Sodium [Moles/Vol] 135 mmol/L Normal 133-145 [facility] Comment on above: Performed By: #### L 503.7505, L503.6005, L100.0100, L500.2500 ####[facility] [address] [place], [address] Urea nitrogen [Mass/Vol] 18 mg/dL Normal 4-19 [facility] Comment on above: Performed By: #### L 503.7505, L503.6005, L100.0100, L500.2500 ####[facility] [address] [place], [address] Basophil percentageOrdered B y: David Stallworth on 08-07-2024 Basophils/100 WBC (Bld) 0.3 % 0-1 [facility] Blood cultureOrdered By: Chhaya Stallworth on 08-07-2024 Bacteria identified Cx Nom (Bld) No growth in 5 days. [facility] Bacteria identified Cx Nom (Bld) No growth in 5 days. [facility] Brain/Head without Contrasto n 08-07-2024 Brain/Head without Contrast [facility] Imaging Services [address] [place] [address] Brain/Head without Contrast MR#: [id number] Acct: [id number] Name: RICHI HU Rep #: [id number] : 1955 M 69 From: Mehran Mcclain DO PCP: Dr. Omid Colindres MD Status: REG ER Study: Brain/Head without Contrast Date of Exam: 10/24 Exam# [id number] Ordering Dr: David Stallworth DO PROCEDURE: BRAIN/HEAD [...] IMPRESSION: No acute process detected. Reading Location: [facility] CC: Dr. Omid Colindres MD; Dr. David Stallworth DO Security Controls Assessor: Signed Normal [facility] CBC W/Diff, Automatedon 06-0 Absolute Lymph 1.65 X10 3/uL Normal 0.83-4.51 [facility] Comment on above: Performed By: #### L 503.7505, L503.6005, L100.0100, L500.2500 #### [facility] [address] [place], [address] Absolute Neut 9.0 X10 3/uL High 2.0-7.7 [facility] Comment on above: Performed By: #### L 503.7505, L503.6005, L100.0100, L500.2500 #### [facility] [address] [place], [address] Basophils/100 WBC (Bld) 0.3 % Normal 0-1 [facility] Comment on above: Performed By: #### L 503.7505, L503.6005, L100.0100, L500.2500 #### [facility] [address] [place], [address] Eosinophils/100 WBC (Bld) 0.5 % Normal 0-5 [facility] Comment on above: Performed By: #### L 503.7505, L503.6005, L100.0100, L500.2500 #### [facility] [address] [place], [address] Erythrocyte distribution width (RBC) [Ratio] 13.2 % Normal 11.6-14.6 [facility] Comment on above: Performed By: #### L 503.7505, L503.6005, L100.0100, L500.2500 #### [facility] [address] [place], [address] Hematocrit (Bld) [Volume fraction] 42.5 % Normal 40-54 [facility] Comment on above: Performed By: #### L 503.7505, L503.6005, L100.0100, L500.2500 #### [facility] [address] [place], [address] Hemoglobin (Bld) [Mass/Vol] 14.6 g/dL Normal 13.0-16.5 [facility] Comment on above: Performed By: #### L 503.7505, L503.6005, L100.0100, L500.2500 #### [facility] [address] [place], [address] IG% 0.400 Normal 0.0-0.9 [facility] Comment on above: Result Comment: IG% - Immature Granulocytes (promyelocytes, myelocytes and metamyelocytes) > 1% indicates that a LEFT SHIFT is Present. Performed By: #### L 503.7505, L503.6005, L100.0100, L500.2500 #### [facility] [address] [place], [address] Lymphocytes/100 WBC (Bld) 14.0 % Low 19-41 [facility] Comment on above: Performed By: #### L 503.7505, L503.6005, L100.0100, L500.2500 #### [facility] [address] [place], [address] MCH (RBC) [Entitic mass] 31.9 pg Normal 27.0-32.0 [facility] Comment on above: Performed By: #### L 503.7505, L503.6005, L100.0100, L500.2500 #### [facility] [address] [place], [address] MCHC (RBC) [Mass/Vol] 34.4 g/dL Normal 32-36 [facility] Comment on above: Performed By: #### L 503.7505, L503.6005, L100.0100, L500.2500 #### [facility] [address] [place], [address] MCV (RBC) [Entitic vol] 92.8 fL Normal 80-94 [facility] Comment on above: Performed By: #### L 503.7505, L503.6005, L100.0100, L500.2500 #### [facility] [address] [place], [address] Monocytes/100 WBC (Bld) 8.6 % Normal 0-10 [facility] Comment on above: Performed By: #### L 503.7505, L503.6005, L100.0100, L500.2500 #### [facility] [address] [place], [address] Neutrophils/100 WBC (Bld) 76.2 % High 47-70 [facility] Comment on above: Performed By: #### L 503.7505, L503.6005, L100.0100, L500.2500 #### [facility] [address] [place], [address] Nucleated RBC (Bld) [#/Vol] 0 10*3/uL Normal 0-5 [facility] Comment on above: Performed By: #### L 503.7505, L503.6005, L100.0100, L500.2500 #### [facility] [address] [place], [address] Platelet mean volume (Bld) [Entitic vol] 9.7 fL Normal 6.2-12.0 [facility] Comment on above: Performed By: #### L 503.7505, L503.6005, L100.0100, L500.2500 #### [facility] [address] [place], [address] Platelets (Bld) [#/Vol] 165 10*3/uL Normal 150-450 [facility] Comment on above: Performed By: #### L 503.7505, L503.6005, L100.0100, L500.2500 #### [facility] [address] [place], [address] RBC (Bld) [#/Vol] 4.58 10*6/uL Low 4.6-6.2 [facility] Comment on above: Performed By: #### L 503.7505, L503.6005, L100.0100, L500.2500 #### [facility] [address] [place], [address] RDW SD 44.8 fl High 35.1-43.9 [facility] Comment on above: Performed By: #### L 503.7505, L503.6005, L100.0100, L500.2500 #### [facility] [address] [place], [address] WBC (Bld) [#/Vol] 11.8 10*3/uL High 4.4-11.0 [facility] Comment on above: Performed By: #### L 503.7505, L503.6005, L100.0100, L500.2500 #### [facility] [address] [place], [address] Carbon dioxide, total [Moles /volume] in Central venous bloodOrdered By: David Stallworth on 08-07-2024 CO2 [Moles/Vol] 21.5 mmol/L 21.0-32.0 [facility] Chest 1 View (Portable)on Chest 1 View (Portable) [facility] Imaging Services [address] [place] [address] Chest 1 View (Portable) MR#: [id number] Acct: [id number] Name: RICHI HU Rep #: [id number] : 1955 M 69 From: Fermin cancino MD PCP: Dr. Omid Colindres MD Status: REG ER Study: Chest 1 View (Portable) Date of Exam: 08/07/24 Exam# [id number] Ordering Dr: David Stallworth DO PROCEDURE: CHEST 1 VIEW (PORTABLE) 08/07/2024 REASON FOR EXAM: DYSPNEA TECHNIQUE: Frontal view of the chest. COMPARISON: 03/10/2020 FINDINGS: Hardware: None Heart: Heart size is moderately enlarged. Lungs: No focal consolidation. No pneumothorax. No pleural effusion. Bones: The bones are unremarkable. Other: RAD/Chest 1 View (Portable) IMPRESSION: No Acute Findings. Moderate cardiomegaly. Reading [facility] CC: Dr. Omid Colindres MD; Dr. David Stallworth DO Security Controls Assessor: Signed Normal [facility] Chloride assayOrdered By: Katherin Stallworth on 08-07-2024 Chloride [Moles/Vol] 100 mmol/L 98-108 [facility] Emergency Department Summary on 08-07-2024 Emergency Department Summary [facility] Medical Records Department [address] [place] [address] Emergency Department Summary 08/07/24 MR#: [id number] Acct: [id number] Name: RICHI HU Rep #: [id number] : 1955 69 From: David Stallworth DO PCP: Dr. mOid Colindres MD Status:ADM IN [facility] H[facility] History of Present Illness Chief Complaint: [...] anticoagulated with Xarelto. He denies chest pain. [facility] Medical History (Reviewed 07/22/24 @ 16:16 by Taylor Patel MACHINE APPLICATOR CEMENTER, MACHINE APPLICATOR CEMENTER-C) Impacted cerumen of both ears Cholecystitis History [...] Hives Verified 08/07/24 11:09 Antibiotics) Family History (Reviewed 07/22/24 @ 16:16 by Taylor Patel MACHINE APPLICATOR CEMENTER, MACHINE APPLICATOR CEMENTER-C) Father Cancer glioblastoma Mother No problems noted. Surgical History (Reviewed 07/22/24 @ 16:16 by Taylor Patel MACHINE APPLICATOR CEMENTER, MACHINE APPLICATOR CEMENTER-C) History of cholecystectomy (12/31/21) History of radiofrequency [...] polyuria Hematol (more content not included)... Normal [facility] Eosinophil percentageOrdered By: David Stallworth on 08-07-2024 Eosinophils/100 WBC (Bld) 0.5 % 0-5 [facility] Erythrocyte distribution wid th ratioOrdered By: Remus Basim on 08-07-2024 Erythrocyte distribution width (RBC) [Ratio] 13.2 % 11.6-14.6 [facility] Erythrocyte distribution wid th standard deviationOrdered By: Remus Stallworth on 08-07-2024 Erythrocyte distribution width (RBC) [Ratio] 44.8 fl High 35.1-43.9 [facility] Glomerular filtration rate ( GFR) estimation/1.73 sq m using serum, plasma, or whole bOrdered By: Remus Basim on 08-07-2024 GFR/1.73 sq M.predicted among non-blacks MDRD (S/P/Bld) [Vol rate/Area] 96 mL/min/{1.73_m2} >60 [facility] Comment on above: mL/min/1.73m2 CKD-EP I Creatinine Equation (2020) H AND P Exam - [facility] 08-07-2024 H&P Exam - Hospitalist [facility] Medical Records Department [address] [place] [address] H P Exam - Hospitalist 08/07/24 1507 MR#: [id number] Acct: [id number] Name: RICHI HU Rep #: [id number] : 1955 69 From: Seb Cortes DO PCP: Dr. Omid Colindres MD Status:ADM IN Location: [facility] [place] HPI - General General Date of Admission: 08/07/24 Date of Service: 08/07/24 Chief Complaint: Shortness of breath, right leg redness/pain HPI Narrative RICHI HU, is a 69 M who presents to the emergency room at [facility] with complaints of shortness of breath particularly [...] received IV clindamycin. Labs will be monitored. [facility] Medical History (Updated 08/07/24 @ 14:02 by [...] Hives Verified 08/07/24 11:09 Antibiotics) Family History (Reviewed 07/22/24 @ 16:16 by Taylor Patel MACHINE APPLICATOR CEMENTER, MACHINE APPLICATOR CEMENTER-C) Father Cancer glioblastoma Mother No problems noted. [...] breath with (more content not included)... Normal [facility] Hematocrit Auto (Bld) [Volum e fraction]Ordered By: David Stallworth on 08-07-2024 Hematocrit (Bld) [Volume fraction] 42.5 % 40-54 [facility] Hemoglobin measurementOrdere d By: David Stallworth on 08-07-2024 Hemoglobin (Bld) [Mass/Vol] 14.6 g/dL 13.0-16.5 [facility] Immature granulocytes/100 WB C Auto (Bld)Ordered By: David Stallworth on 08-07-2024 Immature granulocytes/100 WBC (Bld) 0.400 % 0.0-0.9 [facility] Comment on above: IG% - Immature Granu locytes (promyelocytes, myelocytes and metamyelocytes) > 1% indicates that a LEFT SHIFT is Present. Influenza virus A and B and SARS-CoV-2 (COVID-19) and Respiratory syncytial virus RNAOrdered By: David Stallworth on 08-07-2024 SARS-CoV-2 (COVID-19) RNA CARA+probe Ql (Unsp spec) [facility] L499.0042on 08-07-2024 Trop T High Sen 8 ng/L Normal <=22 [facility] Comment on above: Performed By: #### L 499.0042 #### [facility] [address] [place], [address] L499.0043on 08-07-2024 Trop T High Sen 17 ng/L Normal <=22 [facility] Comment on above: Performed By: #### L 100.0100, L500.2500 #### [facility] [address] [place], [address] L501.4021on 08-07-2024 Trop T High Sen 9 ng/L Normal <=22 [facility] Comment on above: Performed By: #### L 100.0100, L500.2500 #### [facility] [address] [place], [address] L503.7505on 08-07-2024 Natriuretic peptide B (Bld) [Mass/Vol] 706 pg/mL Normal <=900 [facility] Comment on above: Result Comment: Hear t Failure Unlikely: < 300 pg/mL Heart Failure Likely < 50 Years: > 450 pg/mL 50-75 Years: > 900 pg/mL >75 Years: > 1800 pg/mL Performed By: #### L 503.7505, L503.6005, L100.0100, L500.2500 ####[facility] [address] [place], [place], [address] Lactic Acidon 08-07-2024 Lactate [Moles/Vol] 1.6 mmol/L Normal 0.0-2.0 [facility] Comment on above: Order Comment: Y Performed By: #### L 503.7505, L503.6005, L100.0100, L500.2500 ####[facility] [address], [address] Lactic acid measurementOrder ed By: Remus Baism on 08-07-2024 Lactate [Moles/Vol] 1.6 mmol/L 0.0-2.0 [facility] M100.678on 08-07-2024 M100.678 Pending SARS-CoV-2 (COVID 19) Negative INFLUENZA A Negative INFLUENZA B Negative RSV PCR Negative Normal [facility] Comment on above: Performed By: #### L 500.2500 #### [facility] [address] [place], [place], [address] MCV (mean corpuscular volume ) determinationOrdered By: Remus Stallworth on 08-07-2024 MCV (RBC) [Entitic vol] 92.8 fL 80-94 [facility] Mean corpuscular hemoglobin (MCH) determinationOrdered By: Remus Stallworth on 08-07-2024 MCH (RBC) [Entitic mass] 31.9 pg 27.0-32.0 [facility] Mean corpuscular hemoglobin concentration (MCHC) determinationOrdered By: Remus Stallworth on 08-07-2024 MCHC (RBC) [Mass/Vol] 34.4 g/dL 32-36 [facility] Mean platelet volume determi nationOrdered By: Remus Stallworth on 08-07-2024 Platelet mean volume (Bld) [Entitic vol] 9.7 fL 6.2-12.0 [facility] Monocyte percentageOrdered B y: Remus Stallworth on 08-07-2024 Monocytes/100 WBC (Bld) 8.6 % 0-10 [facility] Natriuretic peptide.B prohor calista N-Terminal [Mass/volume] in Serum or PlasmaOrdered By: Rem Ungur on 08-07-2024 Natriuretic peptide.B prohormone N-Terminal [Mass/Vol] 706 pg/mL <900 [facility] Comment on above: Heart Failure Unlike ly: < 300 pg/mLHeart Failure Likely< 50 Years: > 450 pg/mL50-75 Years: > 900 pg/mL>75 Years: > 1800 pg/mL Neutrophil percentageOrdered By: David Stallworth on 08-07-2024 Neutrophils/100 WBC (Bld) 76.2 % High 47-70 [facility] Nucleated red blood cell per centageOrdered By: David Stallworth on 08-07-2024 Nucleated RBC/100 WBC (Bld) [Ratio] 0 % 0-5 [facility] Platelet countOrdered By: Katherin Stallworth on 08-07-2024 Platelets (Bld) [#/Vol] 165 10*3/uL 150-450 [facility] Potassium measurement (mass/ volume)Ordered By: David Stallworth on 08-07-2024 Potassium (Unsp spec) [Mass/Vol] 3.5 mmol/L 3.3-5.1 [facility] RBC Auto (Bld) [#/Vol]Ordere d By: David Stallworth on 08-07-2024 RBC (Bld) [#/Vol] 4.58 10*6/uL Low 4.6-6.2 [facility] Serum creatinine measurement (mass/volume)Ordered By: David Stallworth on 08-07-2024 Creatinine [Mass/Vol] 0.81 mg/dL 0.70-1.20 [facility] Serum glucose measurement (m ass/volume)Ordered By: David Stallworth on 08-07-2024 Glucose [Mass/Vol] 99 mg/dL 70-99 [facility] Serum or plasma calcium emre urement (mass/volume)Ordered By: David Stallworth on 08-07-2024 Calcium [Mass/Vol] 9.3 mg/dL 7.6-11.0 [facility] Serum or plasma urea nitroge n measurement (mass/volume)Ordered By: David Stallworth on 08-07-2024 Urea nitrogen [Mass/Vol] 18 mg/dL 4-19 [facility] Sodium levelOrdered By: Chase Stallworth on 08-07-2024 Sodium [Moles/Vol] 135 mmol/L 133-145 [facility] Troponin T.cardiac [Mass/vol ume] in Serum or Plasma by High sensitivity methodOrdered By: David Stallworth on 08-07-2024 Troponin T.cardiac High sensitivity method [Mass/Vol] 17 ng/L <22 [facility] Troponin T.cardiac High sensitivity method [Mass/Vol] 8 ng/L <22 [facility] Troponin T.cardiac High sensitivity method [Mass/Vol] 9 ng/L <22 [facility] White blood cell (WBC) count Ordered By: David Stallworth on 08-07-2024 WBC (Bld) [#/Vol] 11.8 10*3/uL High 4.4-11.0 [facility] 12 Lead EKG performed by [facility] on 07-19-2024 12 Lead EKG performed by [address] [address] 12 Lead EKG performed by [facility] 07/19/24705 MR#: [id number] Acct: [id number] Name: RICHI HU Rep #: [id number] : 1955 68 From: Taylor Patel MACHINE APPLICATOR CEMENTER MACHINE APPLICATOR CEMENTER-C Attending Dr: Taylor Patel MACHINE APPLICATOR CEMENTER-C Status: DEP A MB Ordering Dr: Taylor Patel MACHINE APPLICATOR CEMENTER MACHINE APPLICATOR CEMENTER-C Date: 07/19/24 [place] [facility] M C Admitted: BMS/12 Lead EKG performed by [facility] ECG Report Interpretation A trial flutter-fibrillation -Poor R-wave progression -may be secondary to pulmonary disease consider old anterior infarct. - Nonspecific T-abnormality. Low voltage with rightward P-axis and rotation -possible pulmonary disease. ABNORMAL Electronically signed on 07/20/2024 at 09:41 by Terell Shore [employer] Version 8610 07/20/24 0942 Date Taylor GARCIA CC: Dr. Omid Colindres MD Date Dictated: 07/19/24705 Date Transcribed: 07/19/24705 Security Controls Assessor: GLYNN Signed Normal [facility] Cardiology Visit Reporton Cardiology Visit Report [facility] [address] [place], [place] [address] OFFICE VISIT Date of Service: 07/19/24 MR#: [id number] Acct: [id number] Name: RICHI HU Rep #: [id number] : 1955 Provider: JOSE torre Age/Sex: 68/M Location: [facility] Status: Signed HPI HPI History of Present [...] 96 Intake Visit Reasons: 6 M FU Starch Treating Assistant Required: No Is patient in pain?: No [...] the past year?: Yes PFSH Medical History (Reviewed 07/22/24 @ 16:16 by Taylor Patel MACHINE APPLICATOR CEMENTER, MACHINE APPLICATOR CEMENTER-C) Impacted cerumen of both ears Cholecystitis History [...] of colonoscopy (04/03 (more content not included)... [facility] L3410.9998on 04-17-2024 [facility] Comment on above: Order Comment: [id number] 3URIN TOX Result Comment: TEST RESULTS LIMITS Tramadol, Urine Tramadol Positive Rpxdnw=047 Tramadol Conf, MS, UR 205 ng/mL Qrfnlz=505 Tramadol detected; this finding can be consistent with use of medications that include Ultram, Topalgic, Tradol, Zydol, or generic formulations. Drugs listed are field representative/health education of common sources of the compound detected and are not intended to include all possible sources. Please Note: Drug test results should be interpreted in the context of clinical information. Patient metabolic variables, specific drug chemistry, and specimen characteristics can affect test outcome. Technical consultation is available if a test result is inconsistent with an expected outcome. Email: [email or web address] TESTING PERFORMED AT [facility]. ORIGINAL REPORT ON FILE IN LAB CONTAINS ADDITIONAL TEST SITE INFORMATION. Performed By: #### L 3410.9998, L505.5000 ####[facility] [address] [place], [place], [address] [facility]. Normal [facility] Comment on above: Order Comment: [id number] 8TRAMIADOL Result Comment: [id number] 63 6+OXYCODONE-BUND (ng/mL) DRUG RESULT SCREEN CUTOFF ____ Amphetamines,Urine Negative ng/mL 1000 Amphetamine test includes Amphetamine and Methamphetamine. Barbiturates Negative ng/mL 200 Benzodiazepines Negative ng/mL 200 Cannabinoid Negative ng/mL 20 Cocaine (Metab) Negative ng/mL 300 Opiates Negative ng/mL 300 Opiates test includes Codeine, Morphine, Hydromorphone, Hydrocodone. Oxycodone/Oxymorphone,Urine Negative ng/mL 300 Test includes Oxycodone and Oxymorphone. TESTING PERFORMED AT [facility]. ORIGINAL REPORT ON FILE IN LAB CONTAINS ADDITIONAL TEST SITE INFORMATION. Performed By: #### L 100.0100, L500.2500 #### [facility] [address] [facility] [place], [place], [address] No Panel InformationOrdered By: Demetria Varela on 04-12-2024 Urine Drug Screen Comment [facility] Comment on above: CONFIRMATORY TESTING FOR [...] Opiates Ql (U) Negative < 300 ng/mL [facility] Urine Drug Screen (VISTA)on 04-12-2024 VISTA UDS PH 7 Normal [facility] Comment on above: Order Comment: MED T OX Performed By: #### L 3410.9998, L505.5000 ####[facility] [address] [place], [place], [address] Urine amphetamine measuremen tOrdered By: Demetria Varela on 04-12-2024 Amphetamines Ql (U) Negative <1000 ng/mL [facility] Urine benzodiazepine levelOr dered By: Demetria Varela on 04-12-2024 Benzodiazepines Ql (U) Negative < 200 ng/mL [facility] Urine cocaine levelOrdered B y: Demetria Varela on 04-12-2024 Cocaine Ql (U) Negative < 300 ng/mL [facility] Urine qtfqb-6-uvxagjqxreobtx abinol (THC) measurementOrdered By: Demetria Varela on 04-12-2024 Cannabinoids Screen Ql (U) Negative < 50 ng/mL [facility] Urine phencyclidine (PCP) de tectionOrdered By: Demetria Varela on 04-12-2024 Phencyclidine Ql (U) Negative < 25 ng/mL [facility] 12 Lead EKG performed by [facility] on 02-22-2024 12 Lead EKG performed by [facility] [address] [place] [address] 12 Lead EKG performed by [facility] 02/22/24 0906 MR#: [id number] Acct: [id number] Name: RICHI HU Rep #: [id number] : 1955 68 From: Susie May Attending Dr: DIMPLE Arndt Status: DEP [facility] Ordering Dr: Susie Neely Date: 01/31 05/23 [place] [facility] Sex: M C Admitted: BMS/12 Lead EKG performed by [facility] ECG Report Interpretation S inus Rhythm -Poor R-wave progression -may be secondary to pulmonary disease consider old anterior infarct. - Nonspecific T-abnormality. Low voltage with rightward P-axis and rotation -possible pulmonary disease. ABNORMAL Electronically signed on 02/25/2024 at 09:47 by Terell [employer] Version 8610 02/25/2451 Date Susie MUSA CC: Dr. Tiarra Bravo MD Date Dictated: 02/22/24905 Date Transcribed: 02/22/24905 Security Controls Assessor: LIBERTAD Signed Normal [facility] Procedure Reporton Procedure Report [facility] Medical Records Department [address] [place] [address] Procedure Report 02/15/24 1132 MR#: [id number] Acct: [id number] Name: RICHI HU Rep #: [id number] : 1955 68 From: Bob Gibson DO PCP: Dr. Tiarra Bravo MD Status:[facility] Location: [facility] Procedures Pulmonary Pulmonary Procedures /Diagnostic Testin Con Sedation Non-invasive Procedural Procedure Information Description of procedure: CONSCIOUS SEDATION REPORT DATE OF SERVICE: February 15, 2024 BRIEF HISTORY OF PRESENT ILLNESS: The patient is a 68-year-old male who presented to [facility] to undergo an elective outpatient cardioversion [...] MD; Dr. Bob Gibson DO Signed Normal [facility] Procedure Report [facility] Medical Records Department [address] [place] [address] Procedure Report 02/15/24 1121 MR#: [id number] Acct: [id number] Name: RICHI HU Rep #: [id number] : 1955 68 From: Terell Shore MD PCP: Dr. Tiarra Bravo MD Status:[facility] Location: [facility] Problems Associated Problem List Diagnoses (1) [...] prompt reversal to sinus rhythm. Procedure findings: Taoist of sinus rhythm Complications Complications: No 02/15/24 1122 Cosigner Signature (if applicable): CC: Dr. Tiarra Bravo MD; Dr. Terell Shore MD Signed Normal [facility] Basic Metabolic Profile (BMP )on 02-08-2024 BUN/CRE 15.3 RATIO Normal 10-20 [facility] Comment on above: Performed By: #### L 500.2500 #### [facility] [address] [place], [address] CA,Total 8.9 mg/dL Normal 8.5-10.1 [facility] Comment on above: Performed By: #### L 500.2500 #### [facility] [address] [place], [address] Chloride [Moles/Vol] 107 mmol/L Normal 98-107 [facility] Comment on above: Performed By: #### L 500.2500 #### [facility] [address] [place], [address] CO2 [Moles/Vol] 25.0 mmol/L Normal 21.0-32.0 [facility] Comment on above: Performed By: #### L 500.2500 #### [facility] [address] [place], [address] Creatinine [Mass/Vol] 0.78 mg/dL Normal 0.70-1.30 [facility] Comment on above: Result Comment: The validity of the calculated GFR GFRAA in patients over 70 years has not been determined. Clinical correlation is essential. Performed By: #### L 500.2500 #### [facility] [address] [place], [address] EST GFR - AA 127 mL/min Normal >60 [facility] Comment on above: Result Comment: Afri can Wallisian GFR Calc Performed By: #### L 500.2500 #### [facility] [address] [place], [address] GAP 6 Normal 5-15 [facility] Comment on above: Performed By: #### L 500.2500 #### [facility] [address] [place], [address] GFR/1.73 sq M.predicted among non-blacks MDRD (S/P/Bld) [Vol rate/Area] 105 mL/min/{1.73_m2} Normal >60 [facility] Comment on above: Result Comment: Non- GFR Calc Performed By: #### L 500.2500 #### [facility] [address] [place], [address] Glucose [Mass/Vol] 91 mg/dL Normal 74-106 [facility] Comment on above: Performed By: #### L 500.2500 #### [facility] [address] [place], [address] Potassium [Moles/Vol] 3.9 mmol/L Normal 3.5-5.1 [facility] Comment on above: Performed By: #### L 500.2500 #### [facility] [address] [place], [address] Sodium [Moles/Vol] 138 mmol/L Normal 136-145 [facility] Comment on above: Performed By: #### L 500.2500 #### [facility] [address] [place], [address] Urea nitrogen [Mass/Vol] 12 mg/dL Normal 7-18 [facility] Comment on above: Performed By: #### L 500.2500 #### [facility] [address] [place], [address] 12 Lead EKG performed by [facility] on 01-25-2024 12 Lead EKG performed by [facility] [address] [place] [address] 12 Lead EKG performed by [facility] 01/25/24 1000 MR#: [id number] Acct: [id number] Name: RICHI HU Rep #: [id number] : 1955 68 From: Susie May Attending Dr: DIMPLE Arndt Status: DEP AMB Ordering Dr: Susie Neely Date: 01/01 07/23 Location: [facility] Sex: M C Admitted: BMS/12 Lead EKG performed by [facility] ECG Report Interpretation A trial fibrillation -irregular [...] Dictated: 01/25/24 1000 Date Transcribed: 01/25/24 1000 Security Controls Assessor: LIBERTAD Signed Normal [facility] Cardiology Visit Reporton Cardiology Visit Report [facility] 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 So (more content not included)... Normal [facility] Lumbar Spine 2 or 3 Viewson 12-31-2023 Lumbar Spine 2 or 3 Views [facility] Imaging Services [address] [place] [address] Lumbar Spine 2 or 3 Views MR#: [id number] Acct: [id number] Name: RICHI HU Rep #: [id number] : 1955 M 68 From: Marcos Busby MD PCP: Dr. Tiarra Bravo MD Status: REG CLI Study: Lumbar Spine 2 or 3 Views Date of Exam: Exam# [id number] Ordering Dr: Demetria Varela MD 4:[id number] STUDY: X-RAY - LUMBAR SPINE REASON FOR [...] Tiarra Bravo MD; Dr. Demetria Varela MD Security Controls Assessor: Signed Normal [facility] Basic Metabolic Profile (BMP )on 12-14-2023 BUN/CRE 14.7 RATIO Normal - [facility] Comment on above: Order Comment: Order Date: 12/14/23Order Info: [id number] - BMPOrder Info: [id number] - LIPIDOrder Info: [id number] - TSH Performed By: #### L 100.0100, L500.2500 #### [facility] [address] [place], [address] CA,Total 9.5 mg/dL Normal 8.5-10.1 [facility] Comment on above: Order Comment: Order Date: 12/14/23Order Info: [id number] - BMPOrder Info: [id number] - LIPIDOrder Info: [id number] - TSH Performed By: #### L 100.0100, L500.2500 #### [facility] [address] [place], [address] Chloride [Moles/Vol] 103 mmol/L Normal 98-107 [facility] Comment on above: Order Comment: Order Date: 12/14/23Order Info: [id number] - BMPOrder Info: [id number] - LIPIDOrder Info: [id number] - TSH Performed By: #### L 100.0100, L500.2500 #### [facility] [address] [place], [address] CO2 [Moles/Vol] 29.0 mmol/L Normal 21.0-32.0 [facility] Comment on above: Order Comment: Order Date: 12/14/23Order Info: [id number] - BMPOrder Info: [id number] - LIPIDOrder Info: [id number] - TSH Performed By: #### L 100.0100, L500.2500 #### [facility] [address] [place], [address] Creatinine [Mass/Vol] 0.88 mg/dL Normal 0.70-1.30 [facility] Comment on above: Order Comment: Order Date: 12/14/23Order Info: [id number]- - BMPOrder Info: [id number] - LIPIDOrder Info: [id number] - TSH Result Comment: The validity of the calculated GFR GFRAA in patients over 70 years has not been determined. Clinical correlation is essential. Performed By: #### L 100.0100, L500.2500 #### [facility] [address] [place], [address] EST GFR - AA 111 mL/min Normal >60 [facility] Comment on above: Order Comment: Order Date: 12/14/23Order Info: [id number] - BMPOrder Info: [id number] - LIPIDOrder Info: [id number] - TSH Result Comment: Afri can [place] GFR Calc Performed By: #### L 100.0100, L500.2500 #### [facility] [address] [place], [address] GAP 6 Normal 5-15 [facility] Comment on above: Order Comment: Order Date: 12/14/23Order Info: [id number] - BMPOrder Info: [id number] - LIPIDOrder Info: [id number] - TSH Performed By: #### L 100.0100, L500.2500 #### [facility] [address] [place], [address] GFR/1.73 sq M.predicted among non-blacks MDRD (S/P/Bld) [Vol rate/Area] 92 mL/min/{1.73_m2} Normal >60 [facility] Comment on above: Order Comment: Order Date: 12/14/23Order Info: [id number] - BMPOrder Info: [id number] - LIPIDOrder Info: [id number] - TSH Result Comment: Non- GFR Calc Performed By: #### L 100.0100, L500.2500 #### [facility] [address] [place], [address] Glucose [Mass/Vol] 86 mg/dL Normal 74-106 [facility] Comment on above: Order Comment: Order Date: 12/14/23Order Info: [id number] - BMPOrder Info: [id number] - LIPIDOrder Info: [id number] - TSH Performed By: #### L 100.0100, L500.2500 #### [facility] [address] [place], [address] Potassium [Moles/Vol] 4.3 mmol/L Normal 3.5-5.1 [facility] Comment on above: Order Comment: Order Date: 12/14/23Order Info: [id number] - BMPOrder Info: [id number] - LIPIDOrder Info: [id number] - TSH Performed By: #### L 100.0100, L500.2500 #### [facility] [address] [place], [address] Sodium [Moles/Vol] 138 mmol/L Normal 136-145 [facility] Comment on above: Order Comment: Order Date: 12/14/23Order Info: [id number] - BMPOrder Info: [id number] - LIPIDOrder Info: [id number] - TSH Performed By: #### L 100.0100, L500.2500 #### [facility] [address] [place], [address] Urea nitrogen [Mass/Vol] 13 mg/dL Normal 7-18 [facility] Comment on above: Order Comment: Order Date: 12/14/23Order Info: [id number] - BMPOrder Info: [id number] - LIPIDOrder Info: [id number] - TSH Performed By: #### L 100.0100, L500.2500 #### [facility] [address] [place], [address] Hemoglobin A1con 12-14-2023 HbA1c (Bld) [Mass fraction] 5.8 % High 3.8-5.6 [facility] Comment on above: Order Comment: Order Date: 12/14/23Order Info: [id number] - A1C Result Comment: Norm al < 5.7 % Prediabetic 5.7 - 6.4 % Diabetic >or= 6.5 % Please note range changes. Performed By: #### L 100.0100, L500.2500 #### [facility] [address] [place], [address] Lipid Profileon 12-14-2023 Cholesterol [Mass/Vol] 134 mg/dL Normal 200 [facility] Comment on above: Order Comment: Order Date: 12/14/23Order Info: [id number] - BMPOrder Info: [id number] - LIPIDOrder Info: [id number] - TSH Result Comment: <200 mg/dL Desirable 200-240 mg/dL Borderline >240 mg/dL High Risk Performed By: #### L 100.0100, L500.2500 #### [facility] [address] [place], [address] Cholesterol in HDL [Mass/Vol] 33 mg/dL Low [facility] Comment on above: Order Comment: Order Date: 12/14/23Order Info: [id number] - BMPOrder Info: [id number] - LIPIDOrder Info: [id number] - TSH Result Comment: The drugs N-Acetylcysteine and Metamizole may falsely depress this assay. Reference Range HDL <40 mg/dL Low HDL Cholesterol HDL >or= 60 mg/dL High HDL Cholesterol Performed By: #### L 100.0100, L500.2500 #### [facility] [address] [place], [address] Cholesterol in LDL [Mass/Vol] 76 mg/dL Normal 0-130 [facility] Comment on above: Order Comment: Order Date: 12/14/23Order Info: [id number] - BMPOrder Info: [id number] - LIPIDOrder Info: [id number] - TSH Performed By: #### L 100.0100, L500.2500 #### [facility] [address] [place] [address] [place], [address] Cholesterol in VLDL [Mass/Vol] 25 mg/dL Normal 5-40 [facility] Comment on above: Order Comment: Order Date: 12/14/23Order Info: [id number]- - BMPOrder Info: [id number] - LIPIDOrder Info: [id number] - TSH Performed By: #### L 100.0100, L500.2500 #### [facility] [address] [place], [address] Triglyceride [Mass/Vol] 123 mg/dL Normal [facility] Comment on above: Order Comment: Order Date: 12/14/23Order Info: [id number] - BMPOrder Info: - LIPIDOrder Info: [id number] - TSH Result Comment: The drugs N-Acetylcysteine and Metamizole may falsely depress this assay. Serum Triglycerides Reference Interval Normal <150 mg/dL Borderline high 150 - 199 mg/dL High 200 - 499 mg/dL Very High > or = 500 mg/dL Performed By: #### L 100.0100, L500.2500 #### [facility] [address] [place], [address] Protein+Creatinine Ratio,Uri neon 12-14-2023 PROT:CRE RATIO 135 mg/g CRE Normal 0-200 [facility] Comment on above: Performed By: #### L 501.0900 ####[facility] [address] [place], [address] Protein (U) [Mass/Vol] 24.8 mg/dL High <11.9 [facility] Comment on above: Performed By: #### L 501.0900 ####[facility] [address] [address] [place], [address] UR CREAT 184.00 mg/dL Normal NO RANGE EST. [facility] Comment on above: Performed By: #### L 501.0900 ####[facility] [address] [place], [place], [address] Thyroid Stim Hormone (TSH)on 12-14-2023 TSH 1.730 uIU/mL Normal 0.358-3.74 0 [facility] Comment on above: Order Comment: Order Date: 12/14/23Order Info: [id number] - BMPOrder Info: [id number] - LIPIDOrder Info: [id number] - TSH Performed By: #### L 100.0100, L500.2500 #### [facility] [address] [place], [place], [address] Laboratory - Drug toxicology Ordered By: Demetria Varela on 04-01-2023 Amphetamines Ql (U) Negative <1000 ng/mL [facility] Benzodiazepines Ql (U) Negative < 200 ng/mL [facility] Cannabinoids Screen Ql (U) Negative < 50 ng/mL [facility] Cocaine Ql (U) Negative < 300 ng/mL [facility] Opiates Ql (U) Negative < 300 ng/mL [facility] No Panel InformationOrdered By: Demetria Varela on 04-01-2023 MDMA (Ecstasy) Screen Negative < 500 ng/mL [facility] Urine Barbiturates Screen Negative < 200 ng/mL [facility] Urine Drug Screen Comment [facility] Comment on above: CONFIRMATORY TESTING FOR [...] Urine Methadone Screen Negative < 300 ng/mL [facility] Urine phencyclidine (PCP) de tectionOrdered By: Demetria Varela on 01-31-2024 Phencyclidine Ql (U) Negative < 25 ng/mL [facility] Basophil percentageOrdered B y: Tiarra Bravo on 02-13-2023 Chloride [Moles/Vol] 102 mmol/L 98-107 [facility] Cholesterol [Mass/Vol] 144 mg/dL <200 [facility] Comment on above: <200 mg/dL Desirable 200-240 mg/dL Borderline >240 mg/dL High Risk Glucose [Mass/Vol] 109 mg/dL 74-106 [facility] Comment on above: Fasting Glucose resu lt from 100 to 125 mg/dL suggests IMPAIRED HOMEOSTASIS per A.D.A. criteria. Potassium [Moles/Vol] 3.8 mmol/L 3.5-5.1 [facility] Sodium [Moles/Vol] 137 mmol/L 136-145 [facility] Triglyceride [Mass/Vol] 122 mg/dL <199 [facility] Comment on above: The drugs N-Acetylcy steine and Metamizole may falsely depress this assay.Serum Triglycerides Reference Interval Normal <150 mg/dL Borderline high 150 - 199 mg/dL High 200 - 499 mg/dL Very High > or = 500 mg/dL Laboratory - Chemistry and C hemistry - challengeOrdered By: Tiarra Bravo on 02-13-2023 CO2 [Moles/Vol] 32.0 mmol/L 21.0-32.0 [facility] Urea nitrogen/Creatinine [Mass ratio] 18.1 mg/mg 10-20 [facility] No Panel InformationOrdered By: Tiarra Bravo on 02-13-2023 Estimated GFR (MDRD) Amer 120 mL/min >60 [facility] Comment on above: GFR Calc Estimated GFR (MDRD) Non-Af Amer 99 mL/min >60 [facility] Comment on above: Non- GFR Calc Prostate Specific Antigen Screen 0.61 ng/mL 0.00-4.00 [facility] Comment on above: This test was perfor med using the TPSA assay method for the[facility] chemistry system. Values obtained with differentassay methods cannot be used interchangably.When changing PSA assays in the course of monitoring apatient, additional sequential testing should be carriedout to confirm baseline values. Serum or plasma calcium emre urement (mass/volume)Ordered By: Tiarra Bravo on 02-13-2023 Calcium [Mass/Vol] 9.1 mg/dL 8.5-10.1 [facility] Serum or plasma cholesterol in HDL measurement (mass/volume)Ordered By: Tiarra Bravo on 02-13-2023 Cholesterol in HDL [Mass/Vol] 35 mg/dL >40 [facility] Comment on above: The drugs N-Acetylcy steine and Metamizole may falsely depress this assay. Reference Range HDL <40 mg/dL Low HDL Cholesterol HDL >or= 60 mg/dL High HDL Cholesterol Serum or plasma cholesterol in VLDL measurement (mass/volume)Ordered By: Tiarra Bravo on 02-13-2023 Cholesterol in VLDL [Mass/Vol] 24 mg/dL 5-40 [facility] Serum or plasma creatinine m easurement (mass/volume)Ordered By: Tiarra Bravo on 02-13-2023 Creatinine [Mass/Vol] 0.83 mg/dL 0.70-1.30 [facility] Comment on above: The validity of the calculated GFR & GFRAA in patients over 70 years has not been determined. Clinical correlation is essential. Serum or plasma low density lipoprotein (LDL) cholesterol measurement (mass/volume)Ordered By: Tiarra Bravo on 02-13-2023 Cholesterol in LDL [Mass/Vol] 85 mg/dL 0-130 [facility] Serum or plasma urea nitroge n measurement (mass/volume)Ordered By: Tiarra Bravo on 02-13-2023 Urea nitrogen [Mass/Vol] 15 mg/dL 7-18 [facility] Thin prep Papanicolaou smear with manual screeningOrdered By: Tiarra Bravo on 02-13-2023 Thin prep Papanicolaou smear with manual screening 3 5-15 [facility] Absolute lymphocyte countOrd ered By: Susie Neely on 01-06-2023 Lymphocytes Auto (Unsp spec) [#/Vol] 2.60 10*3/uL 0.83-4.51 [facility] Basophil percentageOrdered B y: Susie Neely on 01-06-2023 Basophils/100 WBC (Bld) 0.8 % 0-1 [facility] Chloride [Moles/Vol] 103 mmol/L 98-107 [facility] Eosinophils/100 WBC (Bld) 3.4 % 0-5 [facility] Glucose [Mass/Vol] 97 mg/dL 74-106 [facility] Neutrophils (Bld) [#/Vol] 5.1 10*3/uL 2.0-7.7 [facility] Neutrophils/100 WBC (Bld) 57.3 % 47-70 [facility] Potassium [Moles/Vol] 3.9 mmol/L 3.5-5.1 [facility] Sodium [Moles/Vol] 137 mmol/L 136-145 [facility] WBC (Bld) [#/Vol] 8.9 10*3/uL 4.4-11.0 [facility] Blood erythrocytes count (nu mber/volume)Ordered By: Susie Neely on 01-06-2023 RBC (Bld) [#/Vol] 4.91 10*6/uL 4.6-6.2 [facility] Blood hemoglobin measurement (mass/volume)Ordered By: Susie Neely on 01-06-2023 Hemoglobin (Bld) [Mass/Vol] 15.2 g/dL 13.0-16.5 [facility] Blood lymphocytes/100 leukoc ytesOrdered By: Susie Neely on 01-06-2023 Lymphocytes/100 WBC (Bld) 29.1 % 19-41 [facility] Blood monocytes/100 leukocyt esOrdered By: Susie Neely on 01-06-2023 Monocytes/100 WBC (Bld) 9.0 % 0-10 [facility] Blood platelet mean volumeOr dered By: Susie Neely on 01-06-2023 Platelet mean volume (Bld) [Entitic vol] 9.6 fL 6.2-12.0 [facility] Determination of erythrocyte mean corpuscular volume (MCV)Ordered By: Susie Neely on 01-06-2023 MCV (RBC) [Entitic vol] 93.3 fL 80-94 [facility] Hematocrit Auto (Bld) [Volum e fraction]Ordered By: Susie Neely on 01-06-2023 Hematocrit (Bld) [Volume fraction] 45.8 % 40-54 [facility] - Chemistry and C hemistry - challengeOrdered By: Susie Neely on 01-06-2023 CO2 [Moles/Vol] 31.0 mmol/L 21.0-32.0 [facility] Magnesium [Mass/Vol] 2.2 mg/dL 1.6-2.6 [facility] Natriuretic peptide B (Bld) [Mass/Vol] 104.6 pg/mL 0-100 [facility] Urea nitrogen/Creatinine [Mass ratio] 17.1 mg/mg 10-20 [facility] - Hematology and Cell countsOrdered By: Susie Neely on 01-06-2023 Erythrocyte distribution width (RBC) [Entitic vol] 45.5 fL 35.1-43.9 [facility] Erythrocyte distribution width (RBC) [Ratio] 13.3 % 11.6-14.6 [facility] Immature granulocytes/100 WBC (Bld) 0.400 % 0.0-0.9 [facility] Comment on above: IG% - Immature Granu locytes (promyelocytes, myelocytes and metamyelocytes) > 1% indicates that a LEFT SHIFT is Present. MCH (RBC) [Entitic mass] 31.0 pg 27.0-32.0 [facility] Nucleated RBC/100 WBC (Bld) [Ratio] 0 % 0-5 [facility] MCHC Auto (RBC) [Mass/Vol]Or dered By: Susie Neely on 01-06-2023 MCHC (RBC) [Mass/Vol] 33.2 g/dL 32-36 [facility] No Panel InformationOrdered By: Susie Neely on 01-06-2023 Estimated GFR (MDRD) Amer 112 mL/min >60 [facility] Comment on above: GFR Calc Estimated GFR (MDRD) Non-Af Amer 93 mL/min >60 [facility] Comment on above: Non- GFR Calc Thyroid Stimulating Hormone (TSH) 2.20 uIU/mL 0.358-3.74 [facility] Platelets bldOrdered By: Porter Neely on 01-06-2023 Platelets (Bld) [#/Vol] 211 10*3/uL 150-450 [facility] Serum or plasma calcium emre urement (mass/volume)Ordered By: Susie Neely on 01-06-2023 Calcium [Mass/Vol] 9.1 mg/dL 8.5-10.1 [facility] Serum or plasma creatinine m easurement (mass/volume)Ordered By: Susie Neely on 01-06-2023 Creatinine [Mass/Vol] 0.88 mg/dL 0.70-1.30 [facility] Comment on above: The validity of the calculated GFR & GFRAA in patients over 70 years has not been determined. Clinical correlation is essential. Serum or plasma urea nitroge n measurement (mass/volume)Ordered By: Susie Neely on 01-06-2023 Urea nitrogen [Mass/Vol] 15 mg/dL 7-18 [facility] Thin prep Papanicolaou smear with manual screeningOrdered By: Susie Neely on 01-06-2023 Thin prep Papanicolaou smear with manual screening 3 5-15 [facility] Basophil percentageOrdered B y: Tiarra Bravo on 12-08-2022 Chloride [Moles/Vol] 105 mmol/L 98-107 [facility] Glucose [Mass/Vol] 100 mg/dL 74-106 [facility] Comment on above: Fasting Glucose resu lt from 100 to 125 mg/dL suggests IMPAIRED HOMEOSTASIS per A.D.A. criteria. Potassium [Moles/Vol] 3.7 mmol/L 3.5-5.1 [facility] Sodium [Moles/Vol] 138 mmol/L 136-145 [facility] Laboratory - Chemistry and C hemistry - challengeOrdered By: Tiarra Bravo on 12-08-2022 CO2 [Moles/Vol] 26.0 mmol/L 21.0-32.0 [facility] Urea nitrogen/Creatinine [Mass ratio] 16.8 mg/mg 10-20 [facility] No Panel InformationOrdered By: Tiarra Bravo on 12-08-2022 Estimated GFR (MDRD) Amer 119 mL/min >60 [facility] Comment on above: GFR Calc Estimated GFR (MDRD) Non-Af Amer 98 mL/min >60 [facility] Comment on above: Non- GFR Calc Urine Microalbumin/Creatinin e Ratio 12.6 mg/g CRE <30 [facility] Serum or plasma calcium emre urement (mass/volume)Ordered By: Tiarra Bravo on 12-08-2022 Calcium [Mass/Vol] 8.9 mg/dL 8.5-10.1 [facility] Serum or plasma creatinine m easurement (mass/volume)Ordered By: Tiarra Bravo on 12-08-2022 Creatinine [Mass/Vol] 0.83 mg/dL 0.70-1.30 [facility] Comment on above: The validity of the calculated GFR & GFRAA in patients over 70 years has not been determined. Clinical correlation is essential. Serum or plasma urea nitroge n measurement (mass/volume)Ordered By: Tiarra Bravo on 12-08-2022 Urea nitrogen [Mass/Vol] 14 mg/dL 7-18 [facility] Thin prep Papanicolaou smear with manual screeningOrdered By: Tiarra Bravo on 12-08-2022 Thin prep Papanicolaou smear with manual screening 7 5-15 [facility] Thin prep Papanicolaou smear with manual screening 16.0 mg/L NO RANGE EST. [facility] Urine creatinine measurement (mass/volume)Ordered By: Tiarra Bravo on 12-08-2022 Creatinine (U) [Mass/Vol] 127.00 mg/dL NO RANGE EST. [facility] - Drug toxicology Ordered By: Dr. Varela on 06-19-2022 Amphetamines Ql (U) Negative <1000 ng/mL [facility] Benzodiazepines Ql (U) Negative < 200 ng/mL [facility] Cannabinoids Screen Ql (U) Negative < 50 ng/mL [facility] Cocaine Ql (U) Negative < 300 ng/mL [facility] Opiates Ql (U) Negative < 300 ng/mL [facility] No Panel InformationOrdered By: Dr. Varela on 06-19-2022 MDMA (Ecstasy) Screen Negative < 500 ng/mL [facility] Urine Barbiturates Screen Negative < 200 ng/mL [facility] Urine Drug Screen Comment [facility] Comment on above: CONFIRMATORY TESTING FOR [...] Urine Methadone Screen Negative < 300 ng/mL [facility] Urine phencyclidine (PCP) de tectionOrdered By: Dr. Varela on 06-19-2022 Phencyclidine Ql (U) Negative < 25 ng/mL [facility] ERCPon 04-02-2022 ERCP PATIENTNAME Patient Name: Richi Hu EXAMDATE Procedure Date: 04/02/2022 10:33 AM PATIENTID PATIENTACCOUNTNUM PATIENTDOB Date of : 1955 ADMITTYPE Admit Type: Outpatient PATIENTROOM Site: [facility] 1 ETHNICITY Ethnicity: Not or RACE Race: White PROVDR Attending MD: Argelia Abad MD, [phone] ENDOPROCEDURENAME Procedure: ERCP INDICATION Indications: Common bile duct stone(s), Follow-up of ascending cholangitis, Stent removal, Prior bile duct stent placement, Prior Endoscopic Retrograde Cholangiopancreatography, S/p cholecytectomy PTPROFILE Patient Profile: This is a 66 year old male. Refer to note in patient chart for documentation of history and physical. PRIMARYPROVIDER Providers: Argelia Abad MD (Doctor), Sena Harrison RN (Nurse), Nuria Calderon, Master Control Operator EDREFPROVIDER Referring: Argelia Abad MD CURRENT_MEDS [...] A biliary stent was visible on the instrument operator film. A standard esophagogastroduodenoscopy scope was used [...] results. CPT_CODES Procedure Code(s): --- Professional --- 24814, Esophagogastroduodenoscopy, flexible, transoral; with removal of foreign body(s) 06780, Esophagogastroduodenoscopy, flexible, transoral; with biopsy, single or multiple ICD_CODES Diagnosis Code(s): --- Professional --- Z98.890, Other specified postprocedural states K83.09, Other cholangitis Z46.59, Encounter for fitting and adjustment of other gastrointestinal appliance and device Z96.89, Presence of other specified functional implants K80.30, Calculus of bile duct with cholangitis, unspecified, without obstruction K31.89, Other diseases of stomach and duodenum CODINGSTMT CPT copyright 2020 [employer]. All rights reserved. The codes documented in this report are preliminary and upon health information coder rev (more content not included)... Normal [facility] No Panel Informationon 04-02 [facility]enter [facility] Work Phone: [email or web address]} [facility] Work Phone: [facility] Work Phone: Order Reconciliationon 04-02 Order Reconciliation [...] 1 cap(s) orally once a day Normal [facility]2022 Fluoroscopy duration Please click on the link to view the study images Normal -[facility] Gastroenter ology-[facility] marc [facility] Work Phone: [facility] Surgical Pathology Depar tmenton 04-02-2022 [facility] Surgical Pathology Department Name RICHI HU Pathologist: KAVYA CLEMENTE Date of Procedure: 04/02/2022 Date Received: 04/02/2022 Date Reported 04/07/2022 Submitting Physician: ARGELIA ABAD MD Location: [facility] Other External # FINAL DIAGNOSIS A. ANTHONY AMPULLA BIOPSY: -- DUODENAL MUCOSA WITH MILD FOCAL SUPERFICIAL ACUTE INFLAMMATION. -- NO MALIGNANCY OR DYSPLASIA IDENTIFIED. Electronically Signed Out By KAVYA CLEMENTE/LUCIANO By the signature on this report, the individual or group listed as making the Final Interpretation/Diagnosis certifies that they have reviewed this case. Diagnostic interpretation performed at [facility] [address] [place] [address] Clinical History: CBD stent removal, history of CBD stones Specimens Submitted As: A: ANTHONY AMPULLA BIOPSY Gross Description: Received in formalin, labeled with the patient's name and hospital number and A. Ampulla BX, is a fragment of ortega, soft tissue measuring 0.3 x 0.2 x 0.2 cm. The specimen is submitted in toto in one cassette. [facility] sbs/04/03/2022 [facility] Department of Pathology [id number] [place] [address] Normal [facility] Comment on above: Performed By: #### U [facility] #### [facility] Surgical Pathology Department [id number] [facility] [address] No Panel Informationon 02-10 Prostate Specific Antigen Screen 0.75 ng/mL 0.00-4.00 [facility] Work Phone: Comment on above: This test was perfor med using the TPSA assay method for [email or web address] chemistry system. Values obtained with differentassay methods cannot be used interchangably.When changing PSA assays in the course of monitoring apatient, additional sequential testing should be carriedout to confirm baseline values. CBCon 01-03-2022 Erythrocyte distribution width (RBC) [Ratio] 14.4 % Normal 11.5 - 14.5 [facility] Comment on above: Performed By: #### M G #### [address] [address] Hematocrit (Bld) [Volume fraction] 38.9 % Low 41.0 - 52.0 [facility] Comment on above: Performed By: #### M G #### [address] [address] Hemoglobin (Bld) [Mass/Vol] 12.7 g/dL Low 13.5 - 17.5 [facility] Comment on above: Performed By: #### M G #### [address] [address] MCHC (RBC) [Mass/Vol] 32.6 g/dL Normal 32.0 - 36.0 [facility] Comment on above: Performed By: #### M G #### [address] [address] MCV (RBC) [Entitic vol] 98 fL Normal 80 - 100 [facility] Comment on above: Performed By: #### M G #### [address] [address] NUCLEATED RBC 0.0 /100 WBC Normal 0.0 - 0.0 [facility] Comment on above: Performed By: #### M G #### [address] [address] Platelets (Bld) [#/Vol] 141 10*3/uL Low 150 - 450 [facility] Comment on above: Performed By: #### M G #### [address] [address] RBC 3.96 x10E12/L Low 4.50 - 5.90 [facility] Comment on above: Performed By: #### M G #### [address] [address] WBC (Bld) [#/Vol] 8.3 10*3/uL Normal 4.4 - 11.3 [facility] Comment on above: Performed By: #### M G #### [address] [address] COMPREHENSIVE PANELon 2021 Albumin [Mass/Vol] 2.9 g/dL Low 3.4 - 5.0 [facility] [place] Comment on above: Performed By: #### C MP #### [address] [address] ALP [Catalytic activity/Vol] 106 U/L Normal 33 - 136 [facility] Comment on above: Performed By: #### C MP #### [address] [address] ALT [Catalytic activity/Vol] 80 U/L High 10 - 52 [facility] Comment on above: Result Comment: Sri ents treated with Sulfasalazine may generate falsely decreased results for ALT. Performed By: #### C MP #### [address] [address] Anion gap [Moles/Vol] 11 mmol/L Normal 10 - 20 [facility] Comment on above: Performed By: #### C MP #### [address] [address] AST [Catalytic activity/Vol] 41 U/L High 9 - 39 [facility] Comment on above: Performed By: #### C MP #### [address] [address] Bilirubin [Mass/Vol] 2.1 mg/dL High 0.0 - 1.2 [facility] Comment on above: Performed By: #### C MP #### [address] [place] [address] Calcium [Mass/Vol] 8.0 mg/dL Low 8.6 - 10.3 [facility] [place] Comment on above: Performed By: #### C MP #### [address] [address] Chloride [Moles/Vol] 104 mmol/L Normal 98 - 107 [facility] Comment on above: Performed By: #### C MP #### [address] [address] Creatinine [Mass/Vol] 0.63 mg/dL Normal 0.50 - 1.30 [facility] Comment on above: Performed By: #### C MP #### [address] [address] eGFR MALE >90 Normal >90 [facility] Comment on above: Result Comment: CALC ULATIONS OF ESTIMATED GFR ARE PERFORMED USING THE 2020 CKD-EPI STUDY REFIT EQUATION WITHOUT THE RACE VARIABLE FOR THE IDMS-TRACEABLE CREATININE METHODS. https://jasn.asnjournals.org/content//ASN.10689 23739 Performed By: #### C MP #### [address] [address] Glucose [Mass/Vol] 93 mg/dL Normal 74 - 99 [facility] [place] Comment on above: Performed By: #### C MP #### [address] [place] [address] HCO3 (Bld) [Moles/Vol] 25 mmol/L Normal 21 - 32 [facility] Comment on above: Performed By: #### C MP #### [address] [address] Potassium [Moles/Vol] 3.8 mmol/L Normal 3.5 - 5.3 [facility] Comment on above: Performed By: #### C MP #### [address] [address] Protein [Mass/Vol] 5.2 g/dL Low 6.4 - 8.2 [facility] [place] Comment on above: Performed By: #### C MP #### [place] [id number] [facility] [place] [address] Sodium [Moles/Vol] 136 mmol/L Normal 136 - 145 [facility] [place] Comment on above: Performed By: #### C MP #### [address] [place] [address] Urea nitrogen [Mass/Vol] 15 mg/dL Normal 6 - 23 [facility] Comment on above: Performed By: #### C MP #### [address] [address] Laboratory - Chemistry and C hemistry - challengeon 01-03-2022 Albumin BCP dye [Mass/Vol] 2.9 g/dL below low threshold 3.4 - 5.0 [facility] [employer] Work Phone: ALP [Catalytic activity/Vol] 106 U/L 33 - 136 [facility] [employer] Work Phone: ALT With P-5'-P [Catalytic activity/Vol] 80 U/L above high threshold 10 - 52 [facility] [employer] Work Phone: Comment on above: Patients treated wit h Sulfasalazine may generate falsely decreased results for ALT. Anion gap [Moles/Vol] 11 mmol/L 10 - 20 [facility] Gastroenter [facility] [employer] Work Phone: AST With P-5'-P [Catalytic activity/Vol] 41 U/L above high threshold 9 - 39 [facility] Gastroenter [facility] [employer] Work Phone: Bilirubin [Mass/Vol] 2.1 mg/dL above high threshold 0.0 - 1.2 [facility] Gastroenter [facility] [employer] Work Phone: Calcium [Mass/Vol] 8.0 mg/dL below low threshold 8.6 - 10.3 -Univ Gastroenter ology-[facility] [employer] Work Phone: Chloride [Moles/Vol] 104 mmol/L 98 - 107 MP-U niv Gastroenter ology-[facility] [employer] Work Phone: CO2 [Moles/Vol] 25 mmol/L 21 - 32 -Univ Gastroenter ology-[facility] [employer] Work Phone: Creatinine [Mass/Vol] 0.63 mg/dL See Below [facility] Univ Gastroenter ology-[facility] [employer] Work Phone: Comment on above: Reference Range: 0.5 0 - 1.30 Glucose [Mass/Vol] 93 mg/dL 74 - 99 -Uni v Gastroenter ogy-[facility] [employer] Work Phone: Potassium [Moles/Vol] 3.8 mmol/L 3.5 - 5.3 - [facility] Gastroenter ology-[facility] [employer] Work Phone: Protein [Mass/Vol] 5.2 g/dL below low threshold 6.4 - 8.2 [facility] Gastroenter [facility] [employer] Work Phone: Sodium [Moles/Vol] 136 mmol/L 136 - 145 -[facility] [employer] Work Phone: Urea nitrogen [Mass/Vol] 15 mg/dL 6 - 23 -Univ Gastroenter ology-[facility] [employer] Work Phone: Laboratory - Hematology and Cell countson 01-03-2022 Erythrocyte distribution width (RBC) [Ratio] 14.4 % See Below [facility]enter [facility] [place] Work Phone: Comment on above: Reference Range: 11. 5 - 14.5 Hematocrit (Bld) [Volume fraction] 38.9 % below low threshold See Below [facility] Gastroenter ology-[facility] [employer] Work Phone: Comment on above: Reference Range: 41. 0 - 52.0 Hemoglobin (Bld) [Mass/Vol] 12.7 g/dL below low threshold See Below [facility] Gastroenter [facility] [employer] Work Phone: Comment on above: Reference Range: 13. 5 - 17.5 MCHC (RBC) [Mass/Vol] 32.6 g/dL See Below [facility] [employer] Work Phone: Comment on above: Reference Range: 32. 0 - 36.0 MCV (RBC) [Entitic vol] 98 fL 80 - 100 [facility] Gastroenter [facility] [employer] Work Phone: Platelets (Bld) [#/Vol] 141 10*3/uL below low threshold 150 - 450 [facility] [employer] Work Phone: RBC (Bld) [#/Vol] 3.96 {x10E12/L} below low threshold See Below [facility] [employer] Work Phone: Comment on above: Reference Range: 4.5 0 - 5.90 WBC (Bld) [#/Vol] 8.3 10*3/uL 4.4 - 11.3 [facility] [employer] Work Phone: MAGNESIUMon 01-03-2022 Magnesium [Mass/Vol] 1.80 mg/dL Normal 1.60 - 2.40 [facility] Comment on above: Performed By: #### M G #### [facility] [address] [place] [address] Magnesium, Serumon Magnesium [Mass/Vol] 1.80 mg/dL See Below -[facility] Gastroenter [facility] [employer] Work Phone: Comment on above: Reference Range: 1.6 0 - 2.40 No Panel Informationon 01-03 >90 >90 [facility] [employer] Work Phone: Comment on above: CALCULATIONS OF SHARON MATED GFR ARE PERFORMED USING THE 2020 CKD-EPI STUDY REFIT EQUATION WITHOUT THE RACE VARIABLE FOR THE IDMS-TRACEABLE CREATININE METHODS.https://jasn.asnjournals.org/content/early/A SN.9778426512 0.0 {/100_WBC} 0.0 - 0.0 [facility] marc [employer] Work Phone: Order Reconciliationon 01-03 Order Reconciliation [...] continued as lisinopril 20 mg oral tablet Full[place] 5 mg-325 mg oral tablet 1 tab(s) orally every 6 hours, As Needed 30-Dec-2021 13:21 [place] 5 mg-325 mg oral tablet 1 tab(s) orally every 6 hours, As Needed 04-Jan-2022 12:33 Discontinued; Discontinue from ORM Prescription is created for [place] 5 mg-325 mg oral tablet rivaroxaban 20 [...] be shared with your follow-up providers (doctor, clinical aide, physical therapist, etc.). Guidelines for a Healthy Lifestyle All Active Home Medications at time of Discharge Reconciliation: 04-Jan-2022 19:10 (more content not included)... Normal [facility] CBCon 01-02-2022 Erythrocyte distribution width (RBC) [Ratio] 14.3 % Normal 11.5 - 14.5 [facility] Comment on above: Performed By: #### C BC ####[address] [address] Hematocrit (Bld) [Volume fraction] 39.3 % Low 41.0 - 52.0 [facility] Comment on above: Performed By: #### C BC ####[address] [address] Hemoglobin (Bld) [Mass/Vol] 12.9 g/dL Low 13.5 - 17.5 [facility] Comment on above: Performed By: #### C BC ####[address] [address] MCHC (RBC) [Mass/Vol] 32.8 g/dL Normal 32.0 - 36.0 [facility] Comment on above: Performed By: #### C BC ####[address] [address] MCV (RBC) [Entitic vol] 97 fL Normal 80 - 100 [facility] Comment on above: Performed By: #### C BC ####[address] [address] NUCLEATED RBC 0.0 /100 WBC Normal 0.0 - 0.0 [facility] Comment on above: Performed By: #### C BC ####[address] [address] Platelets (Bld) [#/Vol] 143 10*3/uL Low 150 - 450 [facility] Comment on above: Performed By: #### C BC ####[address] [address] RBC 4.04 x10E12/L Low 4.50 - 5.90 [facility] Comment on above: Performed By: #### C BC ####[address] [address] WBC (Bld) [#/Vol] 10.4 10*3/uL Normal 4.4 - 11.3 [facility] Comment on above: Performed By: #### C BC ####[address] [place] [address] COMPREHENSIVE PANELon 2021 Albumin [Mass/Vol] 3.1 g/dL Low 3.4 - 5.0 [facility] [place] Comment on above: Performed By: #### M G #### [address] [place] [address] ALT [Catalytic activity/Vol] 111 U/L High 10 - 52 [facility] Comment on above: Result Comment: Sri ents treated with Sulfasalazine may generate falsely decreased results for ALT. Performed By: #### M G #### [address] [place] [address] AST [Catalytic activity/Vol] 71 U/L High 9 - 39 [facility] Comment on above: Performed By: #### M G #### [address] [place] [address] eGFR MALE >90 Normal >90 [facility] Comment on above: Result Comment: CALC ULATIONS OF ESTIMATED GFR ARE PERFORMED USING THE 2020 CKD-EPI STUDY REFIT EQUATION WITHOUT THE RACE VARIABLE FOR THE IDMS-TRACEABLE CREATININE METHODS. https://jasn.asnjournals.org/content/early//ASN.95242 58144 Performed By: #### M G #### [address] [place] [address] HCO3 (Bld) [Moles/Vol] 23 mmol/L Normal 21 - 32 [facility] Comment on above: Performed By: #### M G #### [address] [place] [address] ALP [Catalytic activity/Vol] 118 U/L Normal 33 - 136 -Univ Gastroenter ology-[facility] marc [employer] Work Phone: Comment on above: Performed By: #### M G #### [address] [place] [address] Anion gap [Moles/Vol] 13 mmol/L Normal 10 - 20 - Univ Gastroenter oly-[facility] marc [employer] Work Phone: Comment on above: Performed By: #### M G #### [address] [place] [address] Bilirubin [Mass/Vol] 2.4 mg/dL High 0.0 - 1.2 MP-[facility] niv [facility]astroenter [facility] [employer] Work Phone: Comment on above: Performed By: #### M G #### [address] [place] [address] Calcium [Mass/Vol] 8.2 mg/dL Low 8.6 - 10.3 MP-[facility]i v [facility]astroenter [facility] [employer] Work Phone: Comment on above: Performed By: #### M G #### [address] [place] [address] Chloride [Moles/Vol] 104 mmol/L Normal 98 - 107 [facility] n[facility]astro[facility] mar[facility] [employer] Work Phone: Comment on above: Performed By: #### M G #### [address] [place] [address] Creatinine [Mass/Vol] 0.63 mg/dL Normal 0.50 - 1.30 [facility] [employer] Work Phone: Comment on above: Reference Range: 0.5 0 - 1.30 Performed By: #### M G #### [address] [place] [address] Glucose [Mass/Vol] 160 mg/dL High 74 - 99 MP-[facility]i v Gastroenter [facility] [employer] Work Phone: Comment on above: Performed By: #### M G #### [address] [place] [address] Potassium [Moles/Vol] 3.8 mmol/L Normal 3.5 - 5.3 MP- Univ [facility]astroenter [facility] [employer] Work Phone: Comment on above: Performed By: #### M G #### [address] [place] [address] Protein [Mass/Vol] 5.3 g/dL Low 6.4 - 8.2 MP-Uni v Gastroenter [facility] marc [facility] Work Phone: Comment on above: Performed By: #### M G #### [address] [place] [address] Sodium [Moles/Vol] 136 mmol/L Normal 136 - 145 -[facility] v Gastroenter [facility] Work Phone: Comment on above: Performed By: #### M G #### [address] [place] [address] Urea nitrogen [Mass/Vol] 15 mg/dL Normal 6 - 23 -[facility] Work Phone: Comment on above: Performed By: #### M G #### [address] [place] [address] Daily Progress Note-General Internal Medicineon 01-02-2022 Daily [...] today. Objective Data: Objective Information: T PRBPMAPSpO2 [id number]% Date/Time01/02 8: 8: 8: 8: 8:00 Range(36.2C [...] CODE STATUS: FULL Electronic Signatures: Geovanna Kahn (SOCIAL DIRECTOR-PBX WIRE CHIEF) (Signed 02-Jan-2022 11:56) Authored: Service, Subjective Data, Objective Data, Assessment and Plan, Note Completion Last Updated: 02-Jan-2022 11:56 by Geovanna Kahn (SOCIAL DIRECTOR-PBX WIRE CHIEF) Normal [facility] Daily Progress Note-Surgeryo n 01-02-2022 Daily Progress [...] overnight. Objective Data: Objective Information: T PRBPMAPSpO2 [id number]% Date/Time01/02 12: 12: 12: 12: 12:00 Range(36C [...] defer further orders. Electronic Signatures: Taylor Walton (SOCIAL DIRECTOR-PBX WIRE CHIEF) (Signed 02-Jan-2022 13:34) Authored: Service, Subjective Data, Objective Data, Assessment and Plan, Note Completion Last Updated: 02-Jan-2022 13:34 by Taylor Walton (SOCIAL DIRECTOR-PBX WIRE CHIEF) Normal [facility] Laboratory - Chemistry and C hemistry - challengeon 01-02-2022 Albumin BCP dye [Mass/Vol] 3.1 g/dL below low threshold 3.4 - 5.0 [facility] [employer] Work Phone: ALT With P-5'-P [Catalytic activity/Vol] 111 U/L above high threshold 10 - 52 [facility] [employer] Work Phone: Comment on above: Patients treated wit h Sulfasalazine may generate falsely decreased results for ALT. AST With P-5'-P [Catalytic activity/Vol] 71 U/L above high threshold 9 - 39 [facility] [employer] Work Phone: CO2 [Moles/Vol] 23 mmol/L 21 - 32 [facility] [employer] Work Phone: Laboratory - Hematology and Cell countson 01-02-2022 Erythrocyte distribution width (RBC) [Ratio] 14.3 % See Below [facility] [employer] Work Phone: Comment on above: Reference Range: 11. 5 - 14.5 Hematocrit (Bld) [Volume fraction] 39.3 % below low threshold See Below [facility] [employer] Work Phone: Comment on above: Reference Range: 41. 0 - 52.0 Hemoglobin (Bld) [Mass/Vol] 12.9 g/dL below low threshold See Below [facility] Work Phone: Comment on above: Reference Range: 13. 5 - 17.5 MCHC (RBC) [Mass/Vol] 32.8 g/dL See Below [facility] Work Phone: Comment on above: Reference Range: 32. 0 - 36.0 MCV (RBC) [Entitic vol] 97 fL 80 - 100 [facility] Work Phone: Platelets (Bld) [#/Vol] 143 10*3/uL below low threshold 150 - 450 [facility] Work Phone: RBC (Bld) [#/Vol] 4.04 {x10E12/L} below low threshold See Below [facility] Work Phone: Comment on above: Reference Range: 4.5 0 - 5.90 WBC (Bld) [#/Vol] 10.4 10*3/uL 4.4 - 11.3 [facility] Work Phone: Magnesium, Serumon 2 Magnesium [Mass/Vol] 1.80 mg/dL Normal 1.60 - 2.40 [facility] Work Phone: Comment on above: Reference Range: 1.6 0 - 2.40 Performed By: #### M G #### [facility] [address] [place] [address] No Panel Informationon 01-02 >90 >90 [facility] Work Phone: Comment on above: CALCULATIONS OF SHARON MATED GFR ARE PERFORMED USING THE 2020 CKD-EPI STUDY REFIT EQUATION WITHOUT THE RACE VARIABLE FOR THE IDMS-TRACEABLE CREATININE METHODS.https://jasn.asnjournals.org/content//A SN.6712066371 0.0 {/100_WBC} 0.0 - 0.0 [facility] Work Phone: CBCon 01-01-2022 Erythrocyte distribution width (RBC) [Ratio] 14.1 % Normal 11.5 - 14.5 [facility] Comment on above: Performed By: #### C BC #### [address] [address] Hematocrit (Bld) [Volume fraction] 39.6 % Low 41.0 - 52.0 [facility] Comment on above: Performed By: #### C BC #### [address] [address] Hemoglobin (Bld) [Mass/Vol] 13.1 g/dL Low 13.5 - 17.5 [facility] Comment on above: Performed By: #### C BC #### [address] [address] MCHC (RBC) [Mass/Vol] 33.1 g/dL Normal 32.0 - 36.0 [facility] Comment on above: Performed By: #### C BC #### [address] [address] MCV (RBC) [Entitic vol] 95 fL Normal 80 - 100 [facility] Comment on above: Performed By: #### C BC #### [address] [address] NUCLEATED RBC 0.0 /100 WBC Normal 0.0 - 0.0 [facility] Comment on above: Performed By: #### C BC #### [address] [address] Platelets (Bld) [#/Vol] 109 10*3/uL Low 150 - 450 [facility] Comment on above: Performed By: #### C BC #### [address] [address] RBC 4.15 x10E12/L Low 4.50 - 5.90 [facility] Comment on above: Performed By: #### C BC #### [address] [address] WBC (Bld) [#/Vol] 6.3 10*3/uL Normal 4.4 - 11.3 [facility] Comment on above: Performed By: #### C BC #### [address] [address] COMPREHENSIVE PANELon 2021 Albumin [Mass/Vol] 3.2 g/dL Low 3.4 - 5.0 [facility] Comment on above: Performed By: #### C MP ####[address] [address] ALP [Catalytic activity/Vol] 136 U/L Normal 33 - 136 [facility] Comment on above: Performed By: #### C MP ####[address] [address] ALT [Catalytic activity/Vol] 137 U/L High 10 - 52 [facility] Comment on above: Result Comment: Sri ents treated with Sulfasalazine may generate falsely decreased results for ALT. Performed By: #### C MP ####[address] [address] Anion gap [Moles/Vol] 14 mmol/L Normal 10 - 20 [facility] Comment on above: Performed By: #### C MP ####[address] [address] AST [Catalytic activity/Vol] 102 U/L High 9 - 39 [facility] Comment on above: Performed By: #### C MP ####[address] [address] Bilirubin [Mass/Vol] 3.5 mg/dL High 0.0 - 1.2 [facility] Comment on above: Performed By: #### C MP ####[address] [address] Calcium [Mass/Vol] 8.4 mg/dL Low 8.6 - 10.3 [facility] Comment on above: Performed By: #### C MP ####[address] [place] [address] Chloride [Moles/Vol] 103 mmol/L Normal 98 - 107 [facility] Comment on above: Performed By: #### C MP ####[address] [place] [address] Creatinine [Mass/Vol] 0.63 mg/dL Normal 0.50 - 1.30 [facility] Comment on above: Performed By: #### C MP ####[address] [place] [address] eGFR MALE >90 Normal >90 [facility] Comment on above: Result Comment: CALC ULATIONS OF ESTIMATED GFR ARE PERFORMED USING THE 2020 CKD-EPI STUDY REFIT EQUATION WITHOUT THE RACE VARIABLE FOR THE IDMS-TRACEABLE CREATININE METHODS. https://jasn.asnjournals.org/content/early//ASN.22492 47944 Performed By: #### C MP ####[address] [place] [address] Glucose [Mass/Vol] 110 mg/dL High 74 - 99 [facility] [place] Comment on above: Performed By: #### C MP ####[address] [place] [address] HCO3 (Bld) [Moles/Vol] 24 mmol/L Normal 21 - 32 [facility] Comment on above: Performed By: #### C MP ####[address] [place] [address] Potassium [Moles/Vol] 3.7 mmol/L Normal 3.5 - 5.3 [facility] Comment on above: Performed By: #### C MP ####[address] [place] [address] Protein [Mass/Vol] 5.5 g/dL Low 6.4 - 8.2 [facility] Comment on above: Performed By: #### C MP ####[address] [place] [address] Sodium [Moles/Vol] 137 mmol/L Normal 136 - 145 [facility] Comment on above: Performed By: #### C MP ####[facility] [place] [address] Urea nitrogen [Mass/Vol] 14 mg/dL Normal 6 - 23 [facility] Comment on above: Performed By: #### C MP ####[facility] [place] [address] Daily Progress Note-Gastroen terologyon 01-01-2022 Daily Progress Note-Gastroenterology Service: Gastroenterology Subjective Data: RICHI HU is a 66 year old Male who is Hospital Day # 3. Pt lying in bed in NAD. s/p ERCP with stent placement. Liver enzymes downtrending, bilirubin 7.3 to 3.5 today. Plan for cholecystectomy today. Repeat ERCP in 3 months for stent removal. Objective Data: Objective Information: T PRBPMAPSpO2 [id number]/6693% Date/Time01/01 8: 8: 8: 8: 8:00 Range(35.6C [...] laboratory results: Complete Blood Count Trending View [id number] 08:46:00 31-Dec-2021 06:08:00 White Blood Cell Count6.3 6.0 Nucleated Erythrocyte Count0.0 0.0 Red Blood Cell Count4.15 L 4.06 L HGB13.1 L 13.0 L HCT39.6 L 39.0 L MCV95 96 MCHC33.1 33.3 VLY108 L 138 L RDW-CV14.1 14.3 Comprehensive Metabolic Panel Trending View [id number] 08:46:00 31-Dec-2021 06:08:00 Glucose, Aasmi489 H 112 H NA137 137 K3.7 3.5 CL103 103 Bicarbonate, Serum24 27 Anion Gap, Serum14 11 BUN14 11 CREAT0.63 0.79 GFR Male>90 >90 Calcium, Serum8.4 L 8.3 L ALB3.2 L 3.2 L SKTD540 118 T Pro5.5 L 5.3 L T Bili3.5 H 7.3 H Alanine Aminotransferase, Jnzfb288 H 165 H Aspartate Transaminase, Xwuhn490 H 170 H Magnesium, Serum Trending View [id number] 08:46:00 31-Dec-2021 06:08:00 Magnesium, Serum1.90 1.80 Urinalysis 30-Dec-2021 17:21:00 ResultValue Color, Urine JAVY Reference Range: STRAW,YELLOW Appearance, Urine CLEAR Specific [place], Urine 1.044 H pH, Urine 5.0 Protein, [...] over the past day. He presented to [facility] and was transferred for further management. [...] off. MAGDI Wong Electronic Signatures: Natali Snow (WILLIAM-PBX WIRE CHIEF) (Signed 01-Jan-2022 14:55) Authored: (more content not included)... Normal [facility] Daily Progress Note-General Internal Medicineon 01-01-2022 Daily [...] today Objective Data: Objective Information: T PRBPMAPSpO2 [id number]/6693% Date/Time01/01 8: 8: 8: 8: 8:00 Range(35.6C [...] CODE STATUS: FULL Electronic Signatures: Geovanna Kahn (SOCIAL DIRECTOR-PBX WIRE CHIEF) (Signed 01-Jan-2022 17:38) Authored: Service, Subjective Data, Objective Data, Assessment and Plan, Note Completion Last Updated: 01-Jan-2022 17:38 by Geovanna Kahn (SOCIAL DIRECTOR-PBX WIRE CHIEF) Normal [facility] [place] Rsya7ms 1 03-03-2021 Discharge Planning Note2 Discharge Planning: Anticipated Discharge [id number] Discharge Planning 01/01/2022 Richi Hu is a 66 year old male who was admitted to [facility] with abdominal Pain. Chart reviewed, fiction and nonfiction prose writer spoke with patient- introduced self and [...] discharge. JOHANNA Roque Assessment: Discharge Planning Assessment [id number] Primary Contact Name and NumberHoma, (1) Lives Withspouse(1) Living Arrangementshouse(1) Stated Reason for Admissiontransferred for stomach pain(1) [place] Resource/Environmental Concernsnone(1) [place]) Services [facility]ated at [facility](1) Discharge Documentation: Discharge/Transfer Date/[id number] Discharged Accompanied Byfamily member Transportation Methodprivate car Discharge Modewheelchair Code StatusCode Status order at time of discharge: Full Code Discharge Order Writtenyes [place] DNR Form Sent with Patient and/or Familyn/a Final Disposition.Home Electronic Signatures: Cyndi Nava (SW) (Signed 01-Jan-2022 12:28) Authored: Discharge Planning, Assessment Seb Raza (STAFF N) (Signed 03-Jan-2022 18:56) Authored: Discharge Planning, Discharge Documentation Last Updated: 03-Jan-2022 18:56 by Seb Raza (STAFF N) References: 1. Data Referenced From Patient Profile - Adult v2 30-Dec-2021 11:15 Normal [facility] [place] [id number] 022 Discharge Profile2 Discharge Orders: Anticipated Discharge Date: Anticipated Discharge [id number] DNAR: Code Status at Discharge: Full Code [...] Xarelto Diastolic CHF, HLD/ HTN transferred from [facility] with chief complaint of abdominal pain. [...] Review of Medication Reconciliation and Orders Completedby SOCIAL DIRECTOR Reviewing ProviderMAGDI Griffiths at 03-Jan-2022 13:14:54 Appointments: Follow-Up Appointment 01: Physician/Dept/ServiceDrSon Abad Reason for ReferralGI- Repeat ERCP in 3 months for stent removal. Phone [phone] Commentsplease call to schedule Follow-Up Appointment 02: Physician/Dept/ServiceDrSon Washington Reason for ReferralSurgery Call to Schedule in10-14 days Phone [phone] Commentsplease call to schedule Follow-Up Appointment 03: Physician/Dept/Servicepcp Reason for Referralhospital follow up with primary care doctor Call to Schedule in1 week Commentsplease call to schedule Electronic Signatures: Geovanna Kahn (SOCIAL DIRECTOR-PBX WIRE CHIEF) (Signed 03-Jan-2022 13:14) Authored: Discharge Orders, Hospital Course (Home Care/Gold Form), Provider FINAL REVIEW of Orders, Appointments, Gold Form - Bin Cleaner Summary Last Updated: 03-Jan-2022 13:14 by Geovanna Kahn (SOCIAL DIRECTOR-PBX WIRE CHIEF) Normal [facility] HEPATIC FUNCTION PANELon Albumin [Mass/Vol] 3.4 g/dL Normal 3.4 - 5.0 [facility] Comment on above: Performed By: #### M G #### [address] [address] ALP [Catalytic activity/Vol] 160 U/L High 33 - 136 [facility] Comment on above: Performed By: #### M G #### [address] [address] ALT [Catalytic activity/Vol] 155 U/L High 10 - 52 [facility] Comment on above: Result Comment: Sri ents treated with Sulfasalazine may generate falsely decreased results for ALT. Performed By: #### M G #### [address] [address] AST [Catalytic activity/Vol] 132 U/L High 9 - 39 [facility] Comment on above: Result Comment: MILD HEMOLYSIS DETECTED. The result may be falsely elevated due to hemolysis or other interferents. Clinical correlation is recommended. Repeat testing may be considered. Performed By: #### M G #### [address] [address] Bilirubin [Mass/Vol] 2.9 mg/dL High 0.0 - 1.2 [facility] Comment on above: Performed By: #### M G #### [address] [address] Bilirubin.indirect [Mass/Vol] 1.2 mg/dL High 0.0 - 0.3 [facility] Comment on above: Result Comment: MILD HEMOLYSIS DETECTED. The result may be falsely decreased due to hemolysis or other interferents. Clinical correlation is recommended. Repeat testing may be considered. Performed By: #### M G #### [address] [address] Protein [Mass/Vol] 6.3 g/dL Low 6.4 - 8.2 [facility] Comment on above: Performed By: #### M G #### [address] [address] Hepatic Function Panelon Albumin BCP dye [Mass/Vol] 3.4 g/dL 3.4 - 5.0 [facility] marc [employer] Work Phone: ALP [Catalytic activity/Vol] 160 U/L above high threshold 33 - 136 [facility] [employer] Work Phone: ALT With P-5'-P [Catalytic activity/Vol] 155 U/L above high threshold 10 - 52 [facility] [employer] Work Phone: Comment on above: Patients treated wit h Sulfasalazine may generate falsely decreased results for ALT. AST With P-5'-P [Catalytic activity/Vol] 132 U/L above high threshold 9 - 39 [facility] [employer] Work Phone: Comment on above: MILD HEMOLYSIS DETEC LASHELL. The result may be falsely elevated due tohemolysis or other interferents. Clinical correlation is recommended.Repeat testing may be considered. Bilirubin [Mass/Vol] 2.9 mg/dL above high threshold 0.0 - 1.2 [facility] [employer] Work Phone: Bilirubin.direct [Mass/Vol] 1.2 mg/dL above high threshold 0.0 - 0.3 [facility] [employer] Work Phone: Comment on above: MILD HEMOLYSIS DETEC LASHELL. The result may be falsely decreased due tohemolysis or other interferents. Clinical correlation is recommended.Repeat testing may be considered. Protein [Mass/Vol] 6.3 g/dL below low threshold 6.4 - 8.2 [facility] [employer] Work Phone: Laboratory - Chemistry and C hemistry - challengeon 01-01-2022 Albumin BCP dye [Mass/Vol] 3.2 g/dL below low threshold 3.4 - 5.0 [facility] [employer] Work Phone: ALP [Catalytic activity/Vol] 136 U/L 33 - 136 [facility] Gastroenter [facility] [employer] Work Phone: ALT With P-5'-P [Catalytic activity/Vol] 137 U/L above high threshold 10 - 52 [facility] [employer] Work Phone: Comment on above: Patients treated wit h Sulfasalazine may generate falsely decreased results for ALT. Anion gap [Moles/Vol] 14 mmol/L 10 - 20 [facility] [employer] Work Phone: AST With P-5'-P [Catalytic activity/Vol] 102 U/L above high threshold 9 - 39 [facility] [employer] Work Phone: Bilirubin [Mass/Vol] 3.5 mg/dL above high threshold 0.0 - 1.2 [facility] [employer] Work Phone: Calcium [Mass/Vol] 8.4 mg/dL below low threshold 8.6 - 10.3 [facility] [employer] Work Phone: Chloride [Moles/Vol] 103 mmol/L 98 - 107 [facility] [employer] Work Phone: CO2 [Moles/Vol] 24 mmol/L 21 - 32 [facility] [employer] Work Phone: Creatinine [Mass/Vol] 0.63 mg/dL See Below [facility] [employer] Work Phone: Comment on above: Reference Range: 0.5 0 - 1.30 Glucose [Mass/Vol] 110 mg/dL above high threshold 74 - 99 [facility] [employer] Work Phone: Potassium [Moles/Vol] 3.7 mmol/L 3.5 - 5.3 [facility] Gastroenter [facility] [employer] Work Phone: Protein [Mass/Vol] 5.5 g/dL below low threshold 6.4 - 8.2 [facility] Gastroenter [facility] Work Phone: Sodium [Moles/Vol] 137 mmol/L 136 - 145 [facility] [employer] Work Phone: Urea nitrogen [Mass/Vol] 14 mg/dL 6 - 23 [facility] [employer] Work Phone: Laboratory - Hematology and Cell countson 01-01-2022 Erythrocyte distribution width (RBC) [Ratio] 14.1 % See Below [facility] [employer] Work Phone: Comment on above: Reference Range: 11. 5 - 14.5 Hematocrit (Bld) [Volume fraction] 39.6 % below low threshold See Below [facility] [employer] Work Phone: Comment on above: Reference Range: 41. 0 - 52.0 Hemoglobin (Bld) [Mass/Vol] 13.1 g/dL below low threshold See Below [facility] [employer] Work Phone: Comment on above: Reference Range: 13. 5 - 17.5 MCHC (RBC) [Mass/Vol] 33.1 g/dL See Below [facility] Work Phone: Comment on above: Reference Range: 32. 0 - 36.0 MCV (RBC) [Entitic vol] 95 fL 80 - 100 [facility] Work Phone: Platelets (Bld) [#/Vol] 109 10*3/uL below low threshold 150 - 450 [facility] Work Phone: RBC (Bld) [#/Vol] 4.15 {x10E12/L} below low threshold See Below [facility] [employer] Work Phone: Comment on above: Reference Range: 4.5 0 - 5.90 WBC (Bld) [#/Vol] 6.3 10*3/uL 4.4 - 11.3 [facility] [employer] Work Phone: MAGNESIUMon 01-01-2022 Magnesium [Mass/Vol] 1.90 mg/dL Normal 1.60 - 2.40 [facility] Comment on above: Performed By: #### M G #### [facility] [address] [place] [address] Magnesium, Serumon Magnesium [Mass/Vol] 1.90 mg/dL See Below -[facility] [employer] Work Phone: Comment on above: Reference Range: 1.6 0 - 2.40 No Panel Informationon 01-01 >90 >90 [facility] [employer] Work Phone: Comment on above: CALCULATIONS OF SHARON MATED GFR ARE PERFORMED USING THE 2020 CKD-EPI STUDY REFIT EQUATION WITHOUT THE RACE VARIABLE FOR THE IDMS-TRACEABLE CREATININE METHODS.https://jasn.asnjournals.org/content//A SN.2927670148 0.0 {/100_WBC} 0.0 - 0.0 [facility] Work Phone: Operative Reports - [place] on 01-01-2022 Operative Reports - [place] SURGEON: Jerrell [place] MD POSTOPERATIVE DIAGNOSES: 1. [...] 66-year-old male patient who was transferred [facility]. The patient presented at [facility] complaining of epigastric right upper quadrant pain radiating to his back. The patient was also markedly jaundiced at that time. The patient was transferred to [facility]. I was not told about the patient's [...] Jerrell Washington MD EST EST DICTATION NUMBER: [id number] INTERNAL JOB NUMBER: [id number] CC: PCP GLORIA Washington MD Electronic Signatures: Jerrell Washington) (Signed on 14-Jan-2022 11:26) Authored Unsigned, Draft (SYS GENERATED) (Entered on 14-Jan-2022 04:43) Entered Last Updated: 14-Jan-2022 11:26 by Jerrell Washington) [facility] Order Reconciliationon 01-01 Order Reconciliation Page 1 [...] 10 mg (more content not included)... 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 Electronically Signed Out By ÁNGEL RODRIGUEZ MD/KEILA By the signature on this report, the individual or group listed as making the Final Interpretation/Diagnosis certifies that they have reviewed this case. Diagnostic interpretation performed at [facility] [address] [place] [facility] [address] Clinical History: Clinical Diagnosis History: history of [...] disruption, the cystic duct is not identified. Electrical & Instrumentation Supervisor sections are submitted in one cassette. IAD iad/01/09/2022 [facility] Department of Pathology [address] [place] [address] Normal [facility] Comment on above: Performed By: #### U HCS #### [facility] Surgical Pathology Department [address] [place] [address] CBCon 12-31-2021 Erythrocyte distribution width (RBC) [Ratio] 14.3 % Normal 11.5 - 14.5 [facility] Comment on above: Performed By: #### C BC #### [address] [address] Hematocrit (Bld) [Volume fraction] 39.0 % Low 41.0 - 52.0 [facility] Comment on above: Performed By: #### C BC #### [address] [address] Hemoglobin (Bld) [Mass/Vol] 13.0 g/dL Low 13.5 - 17.5 [facility] Comment on above: Performed By: #### C BC #### [address] [address] MCHC (RBC) [Mass/Vol] 33.3 g/dL Normal 32.0 - 36.0 [facility] Comment on above: Performed By: #### C BC #### [address] [address] MCV (RBC) [Entitic vol] 96 fL Normal 80 - 100 [facility] Comment on above: Performed By: #### C BC #### [facility] [address] [place] [address] NUCLEATED RBC 0.0 /100 WBC Normal 0.0 - 0.0 [facility] Comment on above: Performed By: #### C BC #### [address] [address] Platelets (Bld) [#/Vol] 138 10*3/uL Low 150 - 450 [facility] Comment on above: Performed By: #### C BC #### [address] [address] RBC 4.06 x10E12/L Low 4.50 - 5.90 [facility] Comment on above: Performed By: #### C BC #### [address] [address] WBC (Bld) [#/Vol] 6.0 10*3/uL Normal 4.4 - 11.3 [facility] Comment on above: Performed By: #### C BC #### [address] [address] COMPREHENSIVE PANELon 2021 Albumin [Mass/Vol] 3.2 g/dL Low 3.4 - 5.0 [facility] Comment on above: Performed By: #### C MP ####[facility] [place] [address] ALP [Catalytic activity/Vol] 118 U/L Normal 33 - 136 [facility] Comment on above: Performed By: #### C MP ####[address] [address] ALT [Catalytic activity/Vol] 165 U/L High 10 - 52 [facility] Comment on above: Result Comment: Sri ents treated with Sulfasalazine may generate falsely decreased results for ALT. Performed By: #### C MP ####[address] [address] Anion gap [Moles/Vol] 11 mmol/L Normal 10 - 20 [facility] Comment on above: Performed By: #### C MP ####[address] [address] AST [Catalytic activity/Vol] 170 U/L High 9 - 39 [facility] Comment on above: Performed By: #### C MP ####[address] [address] Bilirubin [Mass/Vol] 7.3 mg/dL High 0.0 - 1.2 [facility] Comment on above: Performed By: #### C MP ####[address] [address] Calcium [Mass/Vol] 8.3 mg/dL Low 8.6 - 10.3 [facility] Comment on above: Performed By: #### C MP ####[address] [address] Chloride [Moles/Vol] 103 mmol/L Normal 98 - 107 [facility] Comment on above: Performed By: #### C MP ####[address] [address] Creatinine [Mass/Vol] 0.79 mg/dL Normal 0.50 - 1.30 [facility] Comment on above: Performed By: #### C MP ####[address] [address] eGFR MALE >90 Normal >90 [facility] Comment on above: Result Comment: CALC ULATIONS OF ESTIMATED GFR ARE PERFORMED USING THE 2020 CKD-EPI STUDY REFIT EQUATION WITHOUT THE RACE VARIABLE FOR THE IDMS-TRACEABLE CREATININE METHODS. https://jasn.asnjournals.org/content/early//ASN.78807 [address] Performed By: #### C MP ####[address] [address] Glucose [Mass/Vol] 112 mg/dL High 74 - 99 [facility] Comment on above: Performed By: #### C MP ####[address] [address] HCO3 (Bld) [Moles/Vol] 27 mmol/L Normal 21 - 32 [facility] Comment on above: Performed By: #### C MP ####[facility] [facility] [place] [address] Potassium [Moles/Vol] 3.5 mmol/L Normal 3.5 - 5.3 [facility] Comment on above: Performed By: #### C MP ####[facility] [facility] [place] [address] Protein [Mass/Vol] 5.3 g/dL Low 6.4 - 8.2 [facility] Comment on above: Performed By: #### C MP ####[place] [address] [facility] [place] [address] Sodium [Moles/Vol] 137 mmol/L Normal 136 - 145 [facility] Comment on above: Performed By: #### C MP ####[place] [address] [facility] [place] [address] Urea nitrogen [Mass/Vol] 11 mg/dL Normal 6 - 23 [facility] Comment on above: Performed By: #### C MP ####[address] [place] [address] Daily Progress Note-Gastroen terologyon 12-31-2021 Daily Progress Note-Gastroenterology Service: Gastroenterology Subjective Data: RICHI HU is a 66 year old Male who is Hospital Day # 2. Patient lying in bed with continued abdominal discomfort, though fairly well controlled with analgesics. Nausea improved. Bilirubin up trended to 7.3. Jaundice noticed. Plan for ERCP today with Dr. Abad. Objective Data: Objective Information: T PRBPMAPSpO2 [id number]/947201% Date/Time12/31 12: 12: 12: 12: 10: 12:00 [...] laboratory results: Complete Blood Count Trending View [id number] 06:08:00 30-Dec-2021 12:06:00 White Blood Cell Count6.0 9.3 Nucleated Erythrocyte Count0.0 0.0 Red Blood Cell Count4.06 L 4.31 L HGB13.0 L 13.9 HCT39.0 L 41.3 MCV96 96 MCHC33.3 33.7 VPZ885 L 140 L RDW-CV14.3 13.9 Comprehensive Metabolic Panel Trending View [id number]-Eve-5116 06:08:00 30-Dec-2021 12:06:00 Glucose, Ypvhp014 H 126 H NA137 137 K3.5 3.7 CL103 100 Bicarbonate, Serum27 29 Anion Gap, Serum11 12 BUN11 11 CREAT0.79 0.75 GFR Male>90 >90 Calcium, Serum8.3 L 8.5 L ALB3.2 L 3.6 HZFQ923 109 T Pro5.3 L 5.8 L T Bili7.3 H 5.1 H Alanine Aminotransferase, Ccxkt312 H 140 H Aspartate Transaminase, Mtskj726 H 190 H Magnesium, Serum Trending View [id number]-Zfe-6680 06:08:00 30-Dec-2021 12:06:00 Magnesium, Serum1.80 1.90 Urinalysis 30-Dec-2021 17:21:00 ResultValue Color, Urine JAVY Reference Range: STRAW,YELLOW Appearance, Urine CLEAR Specific [place], Urine 1.044 H pH, Urine 5.0 Protein, [...] thickening. Cho (more content not included)... Normal [facility] Daily Progress Note-General Internal Medicineon 12-31-2021 Daily [...] vomiting. Objective Data: Objective Information: T PRBPMAPSpO2 [id number]/653030% Date/Time12/31 8: 8: 8: 8: 10:1/ 8:00 Range(36.4C - 38.4C ) (61 - [...] CODE STATUS: FULL Electronic Signatures: Geovanna Kahn (SOCIAL DIRECTOR-PBX WIRE CHIEF) (Signed 31-Dec-2021 11:17) Authored: Service, Subjective Data, Objective Data, Assessment and Plan, (more content not included)... Normal [facility] ERCPon 12-31-2021 ERCP PATIENTNAME Patient Name: Richi Hu EXAMDATE Procedure Date: 12/31/2021 2:17 PM PATIENTID PATIENTACCOUNTNUM PATIENTDOB Date of : 1955 ADMITTYPE Admit Type: Inpatient PATIENTROOM Site: [facility] Endo 1 ETHNICITY Ethnicity: Unknown RACE Race: Unknown PROVDR Attending MD: Argelia Abad MD, [id number] ENDOPROCEDURENAME Procedure: ERCP INDICATION Indications: Common bile duct stone(s), Abdominal pain of suspected biliary origin, Abnormal abdominal CT, Biliary dilation on Ultrasound, Suspected ascending cholangitis, Jaundice, Elevated liver enzymes PTPROFILE Patient Profile: This is a 66 year old male. Refer to note in patient chart for documentation of history and physical. PRIMARYPROVIDER Providers: Argelia bAad MD (Doctor), Collin Vazquez RN (Nurse), Adi Friedman, Aircraft Time Clerk EDREFPROVIDER Referring: CURRENT_MEDS Medicines: General Anesthesia COMPLIC [...] tolerated the procedure well. FINDING Findings: The instrument operator film was normal. A standard esophagogastroduodenoscopy scope [...] - Retu (more content not included)... Normal [facility] Laboratory - Chemistry and C hemistry - challengeon 12-31-2021 Albumin BCP dye [Mass/Vol] 3.2 g/dL below low threshold 3.4 - 5.0 [facility] [employer] Work Phone: ALP [Catalytic activity/Vol] 118 U/L 33 - 136 [facility] [employer] Work Phone: ALT With P-5'-P [Catalytic activity/Vol] 165 U/L above high threshold 10 - 52 [facility] [employer] Work Phone: Comment on above: Patients treated wit h Sulfasalazine may generate falsely decreased results for ALT. Anion gap [Moles/Vol] 11 mmol/L 10 - 20 [facility] [employer] Work Phone: AST With P-5'-P [Catalytic activity/Vol] 170 U/L above high threshold 9 - 39 [facility] [employer] Work Phone: Bilirubin [Mass/Vol] 7.3 mg/dL above high threshold 0.0 - 1.2 [facility] [employer] Work Phone: Calcium [Mass/Vol] 8.3 mg/dL below low threshold 8.6 - 10.3 [facility] [employer] Work Phone: Chloride [Moles/Vol] 103 mmol/L 98 - 107 [facility] [employer] Work Phone: CO2 [Moles/Vol] 27 mmol/L 21 - 32 [facility] [employer] Work Phone: Creatinine [Mass/Vol] 0.79 mg/dL See Below [facility] [employer] Work Phone: Comment on above: Reference Range: 0.5 0 - 1.30 Glucose [Mass/Vol] 112 mg/dL above high threshold 74 - 99 [facility] [employer] Work Phone: Potassium [Moles/Vol] 3.5 mmol/L 3.5 - 5.3 - Univ [facility]astroenter ology-[facility] [employer] Work Phone: Protein [Mass/Vol] 5.3 g/dL below low threshold 6.4 - 8.2 -Univ Gastroenter ology-[facility] [employer] Work Phone: Sodium [Moles/Vol] 137 mmol/L 136 - 145 [facility] [employer] Work Phone: Urea nitrogen [Mass/Vol] 11 mg/dL 6 - 23 -Univ Gastroenter [facility] [employer] Work Phone: Laboratory - Hematology and Cell countson 12-31-2021 Erythrocyte distribution width (RBC) [Ratio] 14.3 % See Below [facility] Gastroenter [facility] [employer] Work Phone: Comment on above: Reference Range: 11. 5 - 14.5 Hematocrit (Bld) [Volume fraction] 39.0 % below low threshold See Below [facility] Gastroenter [facility] [employer] Work Phone: Comment on above: Reference Range: 41. 0 - 52.0 Hemoglobin (Bld) [Mass/Vol] 13.0 g/dL below low threshold See Below -[facility]iv [facility]astroenter ology-[facility] [employer] Work Phone: Comment on above: Reference Range: 13. 5 - 17.5 MCHC (RBC) [Mass/Vol] 33.3 g/dL See Below - [facility] Work Phone: Comment on above: Reference Range: 32. 0 - 36.0 MCV (RBC) [Entitic vol] 96 fL 80 - 100 -[facility] Work Phone: Platelets (Bld) [#/Vol] 138 10*3/uL below low threshold 150 - 450 [facility] [employer] Work Phone: RBC (Bld) [#/Vol] 4.06 {x10E12/L} below low threshold See Below [facility] Work Phone: Comment on above: Reference Range: 4.5 0 - 5.90 WBC (Bld) [#/Vol] 6.0 10*3/uL 4.4 - 11.3 [facility] Gastroenter [facility] Work Phone: MAGNESIUMon 12-31-2021 Magnesium [Mass/Vol] 1.80 mg/dL Normal 1.60 - 2.40 [facility] Comment on above: Performed By: #### M G #### [facility] [address] [place] [address] Magnesium, Serumon 2 Magnesium [Mass/Vol] 1.80 mg/dL See Below [facility] Work Phone: Comment on above: Reference Range: 1.6 0 - 2.40 No Panel Informationon 12-31 [facility] Work Phone: [email or web address] [id number] [id number]} [facility] Work Phone: >90 >90 [facility] Work Phone: Comment on above: CALCULATIONS OF SHARON MATED GFR ARE PERFORMED USING THE 2020 CKD-EPI STUDY REFIT EQUATION WITHOUT THE RACE VARIABLE FOR THE IDMS-TRACEABLE CREATININE METHODS.https://jasn.asnjournals.org/content//A SN.9608039092 0.0 {/100_WBC} 0.0 - 0.0 [facility] Work Phone: Radiologyon 12-31-2021 Fluoroscopy duration Please click on the link to view the study images Normal -[facility] Gastroenter [facility] marc [facility] Work Phone: [facility] Surgical Pathology Depar tmenton 12-31-2021 [facility] Surgical Pathology Department Name RICHI HU Pathologist: ANGY AMARO MD Date of Procedure: 12/31/2021 Date Received: 12/31/2021 Date Reported 01/02/2022 Submitting Physician: ARGELIA ABAD MD Location: [address] Copy To/Referring/Attending: ADOLFO ENRIQUEZ, Other External # JERRELL WASHINGTON MD FINAL DIAGNOSIS A. BX GASTRIC ULCER: CHRONIC GASTRITIS. NO H. PYLORI ORGANISMS IDENTIFIED. NO ULCER IS IDENTIFIED MICROSCOPICALLY. Electronically Signed Out By ANGY AMARO MD/MSR By the signature on this report, the individual or group listed as making the Final Interpretation/Diagnosis certifies that they have reviewed this case. Diagnostic interpretation performed at [address] [place] [address] Clinical History: CBD obstruction, elevated LFT's, gastric [...] is submitted in toto in one cassette. RMP rmp/01/01/2022 [facility] Department of Pathology [address] [place] [address] Normal [facility] Comment on above: Performed By: #### U [facility] #### [facility] Surgical Pathology Department [address] [place], [place] [id number] Absolute lymphocyte counton 12-30-2021 Lymphocytes Auto (Unsp spec) [#/Vol] 1.58 10*3/uL 0.83-4.51 [facility] Work Phone: Admission Risk Screen - [...] AlertFor Ebola-like Symptoms: Isolate Patient and Notify Provider/Substation Inspector For Contact: Notify Provider/Substation Inspector Advance Directive: Advance Directive/DNRno Advance Directive Information [...] written material; video Cultural Considerationsnone Developmental Considerationsnone Mormonism Considerationsnone Learning Assessment (Other Learner): Other learner availableno Depression Screen: During the past month, have you often been bothered by feeling down, depressed or hopelessno During the past month, have you often had little interest or pleasure in doing thingsno Have you had any thoughts of harming anyone elseno Falconer Suicide: Risk Screen Not Applicable/Able to Answerable to be screened In the Past Month: Have you wished you were or could go to sleep and not wake upno In the Past Month: Have you had any actual thoughts of killing yourselfno Lifetime: Have you ever done, started to do, or prepared to do anything to end your lifeno Falconer Suicide Risknegative Adult Nutrition Screen: Have you [...] Spiritual Screen: Are there any cultural, spiritual, roman catholic practices/values/needs that are important for us to knowno CAGE: Is this an injured patient at a Tra[place] Center [place]/[place]): no Vaccinations: Vaccination - Influenza Vaccination Screen: Is it flu season (between and May 30)Yes Screening for identified contraindications to influenza vaccinationpatient already received vaccine this season Vaccination - Pneumonia Vaccination Screen: Patient has received a previous pneumonia vaccine:no/unknown... Immunocompetent persons with underlying chronic conditions or reside in correction or (more content not included)... Normal [facility] BILIRUBIN,DIRECTon 10-31-202 2 Bilirubin.indirect [Mass/Vol] 2.7 mg/dL High 0.0 - 0.3 [facility] Comment on above: Performed By: #### M G #### [facility] [address] [place] [address] Basophil percentageon 2021 Lactate [Moles/Vol] 2.2 mmol/L 0.4-2.0 [facility] Work Phone: Comment on above: Critical Result(s) C alled at: 06:06:39 12/30/2021 by: Veronika Fischer to Javi. Results read back by same. Basophil percentage 0-5 SEEN /hpf 0-5 [facility] Work Phone: Basophils/100 WBC (Bld) 0.6 % 0-1 [facility] Work Phone: Bilirubin [Mass/Vol] 2.70 mg/dL 0.20-1.00 [facility] Work Phone: Comment on above: For patients on eltr ombopag therapy, use of Dimension [place] TBIL is not recommended. Chloride [Moles/Vol] 104 mmol/L 98-107 [facility] Work Phone: Eosinophils/100 WBC (Bld) 1.8 % 0-5 [facility] Work Phone: Glucose [Mass/Vol] 156 mg/dL 74-106 [facility] Work Phone: Comment on above: Fasting Glucose resu lt greater than or equal to 126 mg/dL suggests DIABETES MELLITUS per A.D.A. criteria. Neutrophils (Bld) [#/Vol] 5.4 10*3/uL 2.0-7.7 [facility] Work Phone: Neutrophils/100 WBC (Bld) 68.5 % 47-70 [facility] Work Phone: Potassium [Moles/Vol] 3.7 mmol/L 3.5-5.1 [facility] Work Phone: Protein [Mass/Vol] 6.8 g/dL 6.4-8.2 [facility] Work Phone: Sodium [Moles/Vol] 139 mmol/L 136-145 [facility] Work Phone: WBC (Bld) [#/Vol] 7.9 10*3/uL 4.4-11.0 [facility] Work Phone: Bilirubin Test strip Ql (U)o n 12-30-2021 Bilirubin Ql (U) Negative Negative [facility] Work Phone: Bilirubin, Serum Direct - Co njugatedon 12-30-2021 Bilirubin.direct [Mass/Vol] 2.7 mg/dL above high threshold 0.0 - 0.3 [facility] Work Phone: Blood erythrocytes count (nu mber/volume)on 12-30-2021 RBC (Bld) [#/Vol] 4.59 10*6/uL 4.6-6.2 [facility] Work Phone: Blood hemoglobin measurement (mass/volume)on 12-30-2021 Hemoglobin (Bld) [Mass/Vol] 14.8 g/dL 13.0-16.5 [facility] Work Phone: Blood lymphocytes/100 leukoc yteson 12-30-2021 Lymphocytes/100 WBC (Bld) 20.1 % 19-41 [facility] Work Phone: Blood monocytes/100 leukocyt eson 12-30-2021 Monocytes/100 WBC (Bld) 8.6 % 0-10 [facility] Work Phone: Blood platelet mean volumeon 12-30-2021 Platelet mean volume (Bld) [Entitic vol] 9.6 fL 6.2-12.0 [facility] Work Phone: CBCon 12-30-2021 Erythrocyte distribution width (RBC) [Ratio] 13.9 % Normal 11.5 - 14.5 [facility] Comment on above: Performed By: #### M G #### [address] [address] Hematocrit (Bld) [Volume fraction] 41.3 % Normal 41.0 - 52.0 [facility] Comment on above: Performed By: #### M G #### [address] [address] Hemoglobin (Bld) [Mass/Vol] 13.9 g/dL Normal 13.5 - 17.5 [facility] Comment on above: Performed By: #### M G #### [address] [address] MCHC (RBC) [Mass/Vol] 33.7 g/dL Normal 32.0 - 36.0 [facility] Comment on above: Performed By: #### M G #### [address] [address] MCV (RBC) [Entitic vol] 96 fL Normal 80 - 100 [facility] Comment on above: Performed By: #### M G #### [address] [address] NUCLEATED RBC 0.0 /100 WBC Normal 0.0 - 0.0 [facility] Comment on above: Performed By: #### M G #### [address] [address] Platelets (Bld) [#/Vol] 140 10*3/uL Low 150 - 450 [facility] Comment on above: Performed By: #### M G #### [address] [address] RBC 4.31 x10E12/L Low 4.50 - 5.90 [facility] Comment on above: Performed By: #### M G #### [address] [address] WBC (Bld) [#/Vol] 9.3 10*3/uL Normal 4.4 - 11.3 [facility] Comment on above: Performed By: #### M G #### [address] [address] COMPREHENSIVE PANEL 2021 Albumin [Mass/Vol] 3.6 g/dL Normal 3.4 - 5.0 [facility] Comment on above: Performed By: #### M G #### [address] [address] ALP [Catalytic activity/Vol] 109 U/L Normal 33 - 136 [facility] Comment on above: Performed By: #### M G #### [address] [address] ALT [Catalytic activity/Vol] 140 U/L High 10 - 52 [facility] Comment on above: Result Comment: Sri ents treated with Sulfasalazine may generate falsely decreased results for ALT. Performed By: #### M G #### [address] [address] Anion gap [Moles/Vol] 12 mmol/L Normal 10 - 20 [facility] Comment on above: Performed By: #### M G #### [address] [address] AST [Catalytic activity/Vol] 190 U/L High 9 - 39 [facility] Comment on above: Performed By: #### M G #### [address] [address] Bilirubin [Mass/Vol] 5.1 mg/dL High 0.0 - 1.2 [facility] Comment on above: Performed By: #### M G #### [address] [address] Calcium [Mass/Vol] 8.5 mg/dL Low 8.6 - 10.3 [facility] Comment on above: Performed By: #### M G #### [address] [address] Chloride [Moles/Vol] 100 mmol/L Normal 98 - 107 [facility] Comment on above: Performed By: #### M G #### [address] [address] Creatinine [Mass/Vol] 0.75 mg/dL Normal 0.50 - 1.30 [facility] Comment on above: Performed By: #### M G #### [address] [place] [address] eGFR MALE >90 Normal >90 [facility] Comment on above: Result Comment: CALC ULATIONS OF ESTIMATED GFR ARE PERFORMED USING THE 2020 CKD-EPI STUDY REFIT EQUATION WITHOUT THE RACE VARIABLE FOR THE IDMS-TRACEABLE CREATININE METHODS. https://jasn.asnjournals.org/content/early//ASN.95727 66136 Performed By: #### M G #### [address] [address] Glucose [Mass/Vol] 126 mg/dL High 74 - 99 [facility] Comment on above: Performed By: #### M G #### [address] [address] HCO3 (Bld) [Moles/Vol] 29 mmol/L Normal 21 - 32 [facility] Comment on above: Performed By: #### M G #### [address] [address] Potassium [Moles/Vol] 3.7 mmol/L Normal 3.5 - 5.3 [facility] Comment on above: Performed By: #### M G #### [address] [address] Protein [Mass/Vol] 5.8 g/dL Low 6.4 - 8.2 [facility] Comment on above: Performed By: #### M G #### [address] [address] Sodium [Moles/Vol] 137 mmol/L Normal 136 - 145 [facility] Comment on above: Performed By: #### M G #### [address] [address] Urea nitrogen [Mass/Vol] 11 mg/dL Normal 6 - 23 [facility] Comment on above: Performed By: #### M G #### [address] [address] Clinical Intervention - Phar bruce 12-30-2021 Clinical Intervention - Pharmacy Pharmacist's Clinical Intervention: Is this intervention medication reconciliation related: yes, HISTORY Electronic Signatures: Jayla Baig (peerTransfer) (Signed 30-Dec-2021 12:22) Authored: Pharmacist's Clinical Intervention Last Updated: 30-Dec-2021 12:22 by Jayla Baig (peerTransfer) [facility] Consult-Gastroenterologyon 1 Consult-Gastroenterolo gy Service: Service: Gastroenterology [...] No previous similar episodes. He presented to [facility] and was transferred for further management. Imaging there consistent with cholelithiasis without cholecystitis. No leukocytosis, liver enzymes noted T bili 2.7, ALT 71/AST 95, ALP 123. He has never had EGD. Most recent colonoscopy 2 years ago at [place] with polyp removed. His last dose of Xarelto was last evening at 6 PM. Patient currently denies lightheadedness, dizziness, fever, chills, CP, SOB, diarrhea, constipation, hematochezia, melena. RUQ ultrasound pending. PMH: HTN, HLD, A. fib on Xarelto, CHF, BORIS, CVA, PE PSH: Cardiac ablation, left heart cath, colonoscopy, right TKR, back surgery 2012, tonsillectomy and adenoidectomy Family Hx: no GI [...] Itching, Hives/Urticaria Objective: Objective Information: T PRBPMAPSpO2 [id number]% Date/Time12/30 10: 10: 10: 10: 10: 10:45 [...] Count 4.3 (more content not included)... Normal [facility] Consult-Gastroenterolo gy This report has been cancelled. Normal [facility] Determination of erythrocyte mean corpuscular volume (MCV)on 12-30-2021 MCV (RBC) [Entitic vol] 93.5 fL 80-94 [facility] Work Phone: EMR ADDONon 12-30-2021 ADDON CONFIRMATION REQUEST REC'D Normal [facility] Comment on above: Performed By: #### E MRAD #### [facility] [address] [facility] [place] [address] Hematocrit Auto (Bld) [Volum e fraction]on 12-30-2021 Hematocrit (Bld) [Volume fraction] 42.9 % 40-54 [facility] Work Phone: Ketones Test strip Ql (U)on 12-30-2021 Ketones Ql (U) Negative Negative [facility] Work Phone: Laboratory - Chemistry and C hemistry - challengeon 12-30-2021 Albumin BCP dye [Mass/Vol] 3.6 g/dL 3.4 - 5.0 [facility] [employer] Work Phone: ALP [Catalytic activity/Vol] 109 U/L 33 - 136 [facility] [employer] Work Phone: ALT With P-5'-P [Catalytic activity/Vol] 140 U/L above high threshold 10 - 52 [facility] [employer] Work Phone: Comment on above: Patients treated wit h Sulfasalazine may generate falsely decreased results for ALT. Anion gap [Moles/Vol] 12 mmol/L 10 - 20 [facility] [employer] Work Phone: AST With P-5'-P [Catalytic activity/Vol] 190 U/L above high threshold 9 - 39 [facility] [employer] Work Phone: Bilirubin [Mass/Vol] 5.1 mg/dL above high threshold 0.0 - 1.2 [facility] [employer] Work Phone: Calcium [Mass/Vol] 8.5 mg/dL below low threshold 8.6 - 10.3 [facility] [employer] Work Phone: Chloride [Moles/Vol] 100 mmol/L 98 - 107 [facility] [employer] Work Phone: CO2 [Moles/Vol] 29 mmol/L 21 - 32 [facility] Work Phone: Creatinine [Mass/Vol] 0.75 mg/dL See Below [facility] [employer] Work Phone: Comment on above: Reference Range: 0.5 0 - 1.30 Glucose [Mass/Vol] 126 mg/dL above high threshold 74 - 99 [facility] [employer] Work Phone: Potassium [Moles/Vol] 3.7 mmol/L 3.5 - 5.3 [facility] [employer] Work Phone: Protein [Mass/Vol] 5.8 g/dL below low threshold 6.4 - 8.2 [facility] Gastroenter [facility] [employer] Work Phone: Sodium [Moles/Vol] 137 mmol/L 136 - 145 [facility] Gastroenter [facility] [employer] Work Phone: Urea nitrogen [Mass/Vol] 11 mg/dL 6 - 23 [facility] Work Phone: ALP [Catalytic activity/Vol] 123 U/L 45-117 [facility] Work Phone: ALT [Catalytic activity/Vol] 71 U/L 16-61 [facility] Work Phone: CO2 [Moles/Vol] 26.0 mmol/L 21.0-32.0 [facility] Work Phone: Globulin (S) [Mass/Vol] 3.3 g/dL 2.2-4.2 [facility] Work Phone: Urea nitrogen/Creatinine [Mass ratio] 13.9 mg/mg 10-20 [facility] Work Phone: Laboratory - Hematology and Cell countson 12-30-2021 Erythrocyte distribution width (RBC) [Ratio] 13.9 % See Below [facility] Work Phone: Comment on above: Reference Range: 11. 5 - 14.5 Hematocrit (Bld) [Volume fraction] 41.3 % See Below [facility] Work Phone: Comment on above: Reference Range: 41. 0 - 52.0 Hemoglobin (Bld) [Mass/Vol] 13.9 g/dL See Below [facility] Work Phone: Comment on above: Reference Range: 13. 5 - 17.5 MCHC (RBC) [Mass/Vol] 33.7 g/dL See Below [facility] Work Phone: Comment on above: Reference Range: 32. 0 - 36.0 MCV (RBC) [Entitic vol] 96 fL 80 - 100 [facility] Work Phone: Platelets (Bld) [#/Vol] 140 10*3/uL below low threshold 150 - 450 [facility] Work Phone: RBC (Bld) [#/Vol] 4.31 {x10E12/L} below low threshold See Below [facility] Work Phone: Comment on above: Reference Range: 4.5 0 - 5.90 WBC (Bld) [#/Vol] 9.3 10*3/uL 4.4 - 11.3 [facility] Work Phone: Erythrocyte distribution width (RBC) [Entitic vol] 46.8 fL 35.1-43.9 [facility] Work Phone: Erythrocyte distribution width (RBC) [Ratio] 13.7 % 11.6-14.6 [facility] Work Phone: Immature granulocytes/100 WBC (Bld) 0.400 % 0.0-0.9 [facility] Work Phone: Comment on above: IG% - Immature Granu locytes (promyelocytes, myelocytes and metamyelocytes) > 1% indicates that a LEFT SHIFT is Present. MCH (RBC) [Entitic mass] 32.2 pg 27.0-32.0 [facility] Work Phone: Nucleated RBC/100 WBC (Bld) [Ratio] 0 % 0-5 [facility] Work Phone: MAGNESIUMon 12-30-2021 Magnesium [Mass/Vol] 1.90 mg/dL Normal 1.60 - 2.40 [facility] Comment on above: Performed By: #### M G #### [facility] [address] [place] [address] MCHC Auto (RBC) [Mass/Vol]on 12-30-2021 MCHC (RBC) [Mass/Vol] 34.5 g/dL 32-36 [facility] Work Phone: Magnesium, Serumon 2 Magnesium [Mass/Vol] 1.90 mg/dL See Below [facility] Work Phone: Comment on above: Reference Range: 1.6 0 - 2.40 Mucus LM Ql (Urine sed)on Mucus Ql (Urine sed) 0 SEEN /hpf [facility] Work Phone: Nitrite Test strip Ql (U)on 12-30-2021 Nitrite Ql (U) Negative Negative [facility] Work Phone: [phone] No Panel Informationon 12-30 >90 >90 [facility] Work Phone: Comment on above: CALCULATIONS OF SHARON MATED GFR ARE PERFORMED USING THE 2020 CKD-EPI STUDY REFIT EQUATION WITHOUT THE RACE VARIABLE FOR THE IDMS-TRACEABLE CREATININE METHODS.https://jasn.asnjournals.org/content/early/A .0538511387 0.0 {/100_WBC} 0.0 - 0.0 [facility] Work Phone: Estimated Creatinine Clearance Calc 119.05 ml/min [facility] Work Phone: Estimated GFR (MDRD) Amer 127 mL/min >60 [facility] Work Phone: Comment on above: GFR Calc Estimated GFR (MDRD) Non-Af Amer 105 mL/min >60 [facility] Work Phone: Comment on above: Non- GFR Calc Order Reconciliationon 12-30 Order Reconciliation Page 1 Admission Reconciliation Document Reconciliation Type: Admission requested on behalf of Geovanna Kahn (Advanced Practice Nurse-Admit) done by Geovanna Kahn (SOCIAL DIRECTOR-PBX WIRE CHIEF) Admission - Reconciliation: 30-Dec-2021 11:40 by: Geovanna Kahn (SOCIAL DIRECTOR-PBX WIRE CHIEF) Home MedicationsEnteredLast Dose TakenReconciled with current Order Reconciliation Comment/ Additional Information furosemide 40 mg oral tablet 1 tab(s) orally once a [id number] PM Furosemide Tablet (LASIX)DOSE = 40 mg Oral Dailyfurosemide 40 mg oral tablet is continued and suspended as Furosemide lisinopril 20 mg oral tablet 1 tab(s) orally once a [id number] AM Lisinopril Tablet (PRINIVIL, ZESTRIL)DOSE = 20 mg Oral Dailylisinopril 20 mg oral tablet continued as the inpatient order Lisinopril sotalol 120 mg oral tablet 1 tab(s) orally 2 times a [id number] AM Sotalol Tablet (BETAPACE)DOSE = 120 mg [...] orally once a day (in the evening) [id number] PM Bleeding, Monitor for Xarelto 20 mg oral tablet continued as the inpatient order Blood in Urine, Monitor for; Xarelto 20 mg oral tablet continued as the inpatient order Bleeding, Monitor for; Xarelto 20 mg oral tablet continued as the inpatient order Rivaroxaban Xarelto 20 mg oral tablet 1 tab(s) orally once a day (in the evening) [id number] PM Rivaroxaban Tablet (XARELTO)DOSE = 20 mg [...] Every 8 Hours and as Needed Normal [facility] Patient Profile - Adult v2on 12-30-2021 Patient Profile - Adult v2 Profile: Initial Info: How to be Addressed Richi Spoken Language PreferredEnglish Source of Informationpatient Stated Reason for Admissiontransferred for stomach pain Primary Contact Name and NumberHoma, Other Contact Names and NumbersMary, Wants Family/Rep Notified of Admissionyes, primary contact Notify PCPnotify PCP Informed of Patient Visiting Rightsyes Limitations on Visitors/Phone Callsnone Arrived [facility] Was Admitted To in Past 90 Daysnone Employment Statusemployed Current or Previous Servicenone Patient Belongingsremains with patient Patient Belongings Remaining with Patientmedical device; vision aids; cell phone/electronics; clothing Medications Brought to Hospitalno History of MDROno General Health: Weight in kg216.3 kilogram(s)(1) Weight in bgj091.8 pound(s) Weight Methodactual (measured) (1) Scale Typebed [...] Lives Withspouse Living Arrangementshouse Services [facility] [place]ticip[place] Significant IndicatorsComplete Information Review: Allergies, Home Meds and Significant Events have been Reviewed and Verified with Patient/Familyyes ALLERGY, INTOLERANCE, ADVERSE EVENT: Allergies: penicillin: Drug, Anaphylaxis, Angioedema, Active Sulfacetamide Sodium-Sulfur: Drug, Itching, Hives/Urticaria, Active Electronic Signatures: Sena Guillen) (Signed 30-Dec-2021 11:39) Authored: Initial Info, General Health, RSP Based Care, Substance, Health Mgmt, Relationship/Environ, Additional Information Last Updated: 30-Dec-2021 11:39 by Sena Guillen (RN) References: 1. Data Referenced From 1. Vital Signs 30-Dec-2021 10:45 Normal [facility] Platelets bldon 12-30-2021 Platelets (Bld) [#/Vol] 193 10*3/uL 150-450 [facility] Work Phone: Protein Test strip Ql (U)on 12-30-2021 Protein Ql (U) Negative Negative [facility] Work Phone: Serum or plasma albumin emre urement (mass/volume)on 12-30-2021 Albumin [Mass/Vol] 3.5 g/dL 3.2-5.0 [facility] Work Phone: Serum or plasma albumin/glob ulin mass ratioon 12-30-2021 Albumin/Globulin [Mass ratio] 1.1 {ratio} 0.9-2.4 [facility] Work Phone: Serum or plasma calcium emre urement (mass/volume)on 12-30-2021 Calcium [Mass/Vol] 9.1 mg/dL 8.5-10.1 [facility] Work Phone: Serum or plasma creatinine m easurement (mass/volume)on 12-30-2021 Creatinine [Mass/Vol] 0.79 mg/dL 0.70-1.30 [facility] Work Phone: Comment on above: The validity of the calculated GFR & GFRAA in patients over 70 years has not been determined. Clinical correlation is essential. Serum or plasma urea nitroge n measurement (mass/volume)on 12-30-2021 Urea nitrogen [Mass/Vol] 11 mg/dL 7-18 [facility] Work Phone: Squamous epithelial cells de tection in urine sediment by light microscopyon 12-30-2021 Epithelial cells.squamous LM Ql (Urine sed) 0 SEEN /hpf 0-5 [facility] Work Phone: Thin prep Papanicolaou smear with manual screeningon 12-30-2021 Thin prep Papanicolaou smear with manual screening 95 U/L 15-37 [facility] Work Phone: Thin prep Papanicolaou smear with manual screening 9 5-15 [facility] Work Phone: URINALYSISon 12-30-2021 Appearance (U) CLEAR Normal CLEAR [facility] Comment on above: Performed By: #### M G #### [address] [address] Bilirubin Ql (U) SMALL(1+) Abnormal NEGATIVE [facility] Comment on above: Performed By: #### M G #### [address] [address] Color (U) JAVY Normal STRAW,YELL OW [facility] [place] [place] on above: Performed By: #### M G #### [address] [address] Glucose Ql (U) Negative Normal NEGATIVE [facility] [place] above: Performed By: #### M G #### [address] [address] Hemoglobin Ql (U) Negative Normal NEGATIVE [facility] Comment on above: Performed By: #### M G #### [address] [address] Ketones Ql (U) Negative Normal NEGATIVE [facility] [place] above: Performed By: #### M G #### [address] [address] Leukocyte esterase Test strip Ql (U) Negative Normal NEGATIVE [facility] [place] on above: Performed By: #### M G #### [address] [address] Nitrite Ql (U) Negative Normal NEGATIVE [facility] [place] on above: Performed By: #### M G #### [address] [address] pH (U) 5.0 [pH] Normal 5.0 - 8.0 [facility] [place] Comment on above: Performed By: #### M G #### [address] [address] Protein Ql (U) Negative Normal NEGATIVE [facility] [place] Comment on above: Performed By: #### M G #### [address] [address] Specific gravity (U) [Rel density] 1.044 High 1.005 - 1.035 [facility] [place] on above: Performed By: #### M G #### [address] [address] Urobilinogen (U) [Mass/Vol] 4.0 mg/dL High 0.0 - 1.9 [facility] [place] above: Result Comment: SOME PIGMENTS AND MEDICATIONS MAY CAUSE A FALSE POSITIVE UROBILINOGEN Performed By: #### M G #### [address] [address] US RIGHT UPPER QUADRANTon US RIGHT UPPER QUADRANT Patient Name: RICHI HU STUDY: US RUQ ABDOMEN; 12/30/2021 2:30 pm INDICATION: RUQ abd pain, . COMPARISON: None. ACCESSION NUMBER(S): [id number] ORDERING CLINICIAN: GEOVANNA ALEGRE TECHNIQUE: Multiple images [...] Electronically signed by: SANFORD MEDINA MD Normal [facility] [place]ound Right Upper Quadr elder 12-30-2021 Ultrasound Right Upper Quadrant Normal [facility] Work Phone: Urinalysison 12-30-2021 Color (U) JAVY See Below [facility] Work Phone: Comment on above: Reference Range: STR AW,YELLOW Glucose Ql (U) Negative NEGATIVE [facility] Work Phone: Ketones Ql (U) Negative NEGATIVE [facility] Work Phone: Leukocyte esterase Test strip Ql (U) Negative NEGATIVE [facility] Work Phone: pH (U) 5.0 [pH] 5.0 - 8.0 [facility] Work Phone: Protein (U) [Mass/Vol] Negative NEGATIVE [facility] Work Phone: RBC (U) [#/Vol] Negative NEGATIVE [facility] Work Phone: Specific gravity (U) [Rel density] 1.044 1 above high threshold See Below [facility] Work Phone: Comment on above: Reference Range: 1.0 05 - 1.035 Urinalysis Negative NEGATIVE [facility] Work Phone: Urinalysis 4.0 mg/dL above high threshold 0.0 - 1.9 [facility] Work Phone: Comment on above: SOME PIGMENTS AND ME DICATIONS MAY CAUSE AFALSE POSITIVE UROBILINOGEN Urinalysis SMALL(1+) Abnormal NEGATIVE [facility] Work Phone: Urinalysis CLEAR CLEAR [facility] Work Phone: Urine blood detectionon 12-02 RBC Ql (U) Negative Negative [facility] Work Phone: RBC Ql (U) 0 SEEN /hpf 0-5 [facility] Work Phone: Urine clarityon 12-30-2021 Clarity (U) Clear Clear [facility] Work Phone: Urine color determinationon 12-30-2021 Color (U) Yellow Yellow [facility] Work Phone: Urine glucose detectionon Glucose Ql (U) Normal mg/dl Normal [facility] Work Phone: Urine leukocyte esterase det ection by dipstickon 12-30-2021 Leukocyte esterase Test strip Ql (U) 25 /ul Negative [facility] Work Phone: Urine pHon 12-30-2021 pH (U) 7.0 [pH] 5.0 - 8.0 [facility] Work Phone: Urine sediment bacteria coun t by microscopy (number/high power field)on 12-30-2021 Bacteria LM.HPF (Urine sed) [#/Area] RARE /hpf None Seen [facility] Work Phone: Urine specific gravity measu rementon 12-30-2021 Specific gravity (U) [Rel density] 1.010 1.002-1.03 0 [facility] Work Phone: Urobilinogen Auto test strip Ql (U)on 12-30-2021 Urobilinogen Ql (U) 4 mg/dl Normal [facility] Work Phone: Final Surgical Pathology Rep nita 05-01-2020 Final Surgical Pathology Report . Pathology Reports Accession: Collected Date/Time: Received Date/Time: Pathologist: [id number] 04/27/2020 10:45 EST 04/30/2020 08:18 MD ADOLFO MIRANDA Final Surgical Pathology Report DIAGNOSIS: A) SIGMOID COLON, POLYPECTOMY -- TUBULAR ADENOMA. B) SPLENIC FLEXURE OF COLON, POLYPECTOMY -- TUBULAR ADENOMA. COMMENT: [facility]# [id number] CLINICAL INFORMATION: Procedure: COLONOSCOPY WITH POLYPECTOMY Preoperative [...] Electronically Signed by Pathology Report verified by [facility] Electronically signed by ADOLFO NIETO MD Sign out Date: 05/01/2020 16:22 Performing Lab: [facility], [address] [place] [address] ([place]) Comment on above: Performed By: #### S PFR #### [place] [address] COVID-19 virus antigen assay SARS-CoV-2 (COVID-19) Ag IA.rapid Ql (Resp) [facility] Work Phone: Vital Signs Date Time Vital Sign Value Performing Clinician Facility 10-10-2024 14:45-0400 Body weight 203.66 kg Axel Marquis MD Work Phone: [facility] 10-10-2024 14:45-0400 Diastolic blood pressure 71 mm[Hg] Axel Marquis MD Work Phone: [facility] 10-10-2024 14:45-0400 Heart rate 85 /min Axel Marquis MD Work Phone: [facility] 10-10-2024 14:45-0400 Respiratory rate 14 /min Axel Marquis MD Work Phone: [facility] 10-10-2024 14:45-0400 SaO2% (BldA) [Mass fraction] 97 % Axel Marquis MD Work Phone: [facility] 10-10-2024 14:45-0400 Systolic blood pressure 120 mm[Hg] Axel Marquis MD Work Phone: [facility] 08-16-2024 07:07-0400 Body height 195.[address] Tiarra Bravo MD Work Phone: [facility] 08-16-2024 07:07-0400 Diastolic blood pressure 82 mm[Hg] Dr. Tiarra Bravo MD Work Phone: [facility] 08-16-2024 07:07-0400 Heart rate 68 /min Dr. Tiarra Bravo MD Work Phone: [facility] 08-16-2024 07:07-0400 Respiratory rate 22 /min Dr. Tiarra Bravo MD Work Phone: [facility] 08-16-2024 07:07-0400 SaO2% (BldA) [Mass fraction] 98 % Dr. Tiarra Bravo MD Work Phone: [facility] 08-16-2024 07:07-0400 Systolic blood pressure 140 mm[Hg] Dr. Tiarra Bravo MD Work Phone: [facility] 08-10-2024 14:05-0400 Body temperature 97.9 [degF] Dr. Tiarra Bravo MD Work Phone: [facility] 08-10-2024 14:05-0400 Diastolic blood pressure 82 mm[Hg] Dr. Tiarra Bravo MD Work Phone: [facility] 08-10-2024 14:05-0400 Heart rate 78 /min Dr. Tiarra Bravo MD Work Phone: [facility] 08-10-2024 14:05-0400 Respiratory rate 18 /min Dr. Tiarra Bravo MD Work Phone: [facility] 08-10-2024 14:05-0400 SaO2% (BldA) [Mass fraction] 100 % Dr. Tiarra Bravo MD Work Phone: [facility] 08-10-2024 14:05-0400 Systolic blood pressure 118 mm[Hg] Dr. Tiarra Bravo MD Work Phone: 3(979)966-674742 [place] [address] 08-08-2024 10:09-0400 Body height 195.[address] Tiarra Bravo MD Work Phone: 2(925)566-177942 [place] [address] 08-08-2024 10:09-0400 Body weight 200.[address] Tiarra Bravo MD Work Phone: 6(247)894-083742 [place] [address] 08-07-2024 13:58-0400 Body mass index (BMI) [Ratio] 52.5 kg/m2 Dr. Tiarra Bravo MD Work Phone: 9(582)437-491242 [place] [address] 08-07-2024 13:25-0400 Body temperature 98.9 [degF] Dr. Tiarra Bravo MD Work Phone: 6(766)098-537842 [place] [address] 08-07-2024 13:25-0400 Diastolic blood pressure 51 mm[Hg] Dr. Tiarra Braov MD Work Phone: 8(826)464-476742 [place] [address] 08-07-2024 13:25-0400 Heart rate 78 /min Dr. Tiarra Bravo MD Work Phone: 7(704)786-847542 [place] [address] 08-07-2024 13:25-0400 Respiratory rate 13 /min Dr. Tiarra Bravo MD Work Phone: 9(650)084-905842 [place] [address] 08-07-2024 13:25-0400 SaO2% (BldA) [Mass fraction] 98 % Dr. Tiarra Bravo MD Work Phone: 4(150)582-494042 [place] [address] 08-07-2024 13:25-0400 Systolic blood pressure 117 mm[Hg] Dr. Tiarra Bravo MD Work Phone: 7(249)422-710742 [place] [address] 08-07-2024 11:09-0400 Body height 190.[address] Tiarra Bravo MD Work Phone: 4(369)408-595342 [place] [address] 08-07-2024 11:09-0400 Body mass index (BMI) [Ratio] 55 kg/m2 Dr. Tiarra Bravo MD Work Phone: [facility] 08-07-2024 11:09-0400 Body weight 199.[address] Tiarra Bravo MD Work Phone: 7(893)318-999942 [place] [address] 07-19-2024 07:07-0400 Body height 190.[address] Tiarra Bravo MD Work Phone: 3(009)800-009242 [place] [address] 07-19-2024 07:07-0400 Body mass index (BMI) [Ratio] 56.2 kg/m2 Dr. Tiarra Bravo MD Work Phone: 3(659)391-672742 [place] [address] 07-19-2024 07:07-0400 Body weight 204.[address] Tiarra Bravo MD Work Phone: 5(058)258-556342 [place] [address] 07-19-2024 07:07-0400 Diastolic blood pressure 83 mm[Hg] Dr. Tiarra Bravo MD Work Phone: 1(150)955-745642 [place] [address] 07-19-2024 07:07-0400 Heart rate 72 /min Dr. Tiarra Bravo MD Work Phone: 6(848)704-072642 [place] [address] 07-19-2024 07:07-0400 Respiratory rate 22 /min Dr. Tiarra Bravo MD Work Phone: 2(261)288-578542 [place] [address] 07-19-2024 07:07-0400 SaO2% (BldA) [Mass fraction] 96 % Dr. Tiarra Bravo MD Work Phone: 3(680)668-802342 [place] [address] 07-19-2024 07:07-0400 Systolic blood pressure 127 mm[Hg] Dr. Tiarra Bravo MD Work Phone: 5(481)153-725542 [place] [address] 02-09-2023 08:40-0500 Body temperature 97.3 [degF] Dr. Tiarra Bravo Work Phone: 4(908)095-976942 [place] [address] 02-09-2023 08:40-0500 Diastolic blood pressure 79 mm[Hg] Dr. Tiarra Bravo Work Phone: 4(065)849-724642 [place] [address] 02-09-2023 08:40-0500 Heart rate 77 /min Dr. Tiarra Bravo Work Phone: [facility] 02-09-2023 08:40-0500 Respiratory rate 16 /min Dr. Tiarra Bravo Work Phone: [facility] 02-09-2023 08:40-0500 SaO2% (BldA) [Mass fraction] 96 % Dr. Tiarra Bravo Work Phone: [facility] 02-09-2023 08:40-0500 Systolic blood pressure 128 mm[Hg] Dr. Tiarra Bravo Work Phone: [facility] 01-06-2023 14:53-0500 Body height 195.[address] Tiarra Bravo Work Phone: [facility] 01-06-2023 14:53-0500 Body mass index (BMI) [Ratio] 53.1 kg/m2 Dr. Tiarra Bravo Work Phone: [facility] 01-06-2023 14:53-0500 Body weight 203.[address] Tiarra Bravo Work Phone: [facility] 01-06-2023 14:53-0500 Diastolic blood pressure 73 mm[Hg] Dr. Tiarra Bravo Work Phone: [facility] 01-06-2023 14:53-0500 Heart rate 58 /min Dr. Tiarra Bravo Work Phone: [facility] 01-06-2023 14:53-0500 Respiratory rate 22 /min Dr. Tiarra Bravo Work Phone: [facility] 01-06-2023 14:53-0500 SaO2% (BldA) [Mass fraction] 99 % Dr. Tiarra Bravo Work Phone: [facility] 01-06-2023 14:53-0500 Systolic blood pressure 153 mm[Hg] Dr. Tiarra Bravo Work Phone: [facility] 01-14-2022 10:50-0500 Body height 195.[address] Tiarra Bravo Work Phone: [facility] Work Phone: 01-14-2022 10:50-0500 Body mass index (BMI) [Ratio] 53.8 kg/m2 Dr. Tiarra Bravo Work Phone: [facility] Work Phone: 01-14-2022 10:50-0500 Body weight 205.[address] Tiarra Bravo Work Phone: [facility] Work Phone: 01-14-2022 10:50-0500 Diastolic blood pressure 77 mm[Hg] Dr. Tiarra Bravo Work Phone: [facility] Work Phone: 01-14-2022 10:50-0500 Heart rate 64 /min Dr. Tiarra Bravo Work Phone: [facility] Work Phone: 01-14-2022 10:50-0500 Respiratory rate 18 /min Dr. Tiarra Bravo Work Phone: [facility] Work Phone: 01-14-2022 10:50-0500 SaO2% (BldA) [Mass fraction] 96 % Dr. Tiarra Bravo Work Phone: [facility] Work Phone: 01-14-2022 10:50-0500 Systolic blood pressure 130 mm[Hg] Dr. Tiarra Bravo Work Phone: [facility] Work Phone: 01-10-2022 11:15-0500 Body height 193.04 cm Referring Provider [facility] Work Phone: 01-10-2022 11:15-0500 Body mass index (BMI) [Ratio] 26.29 kg/m2 Referring Provider [facility] Work Phone: 01-10-2022 11:15-0500 Body surface area Derived from formula 2.29 m2 Referring Provider [facility] Work Phone: 01-10-2022 11:15-0500 Body weight 97.98 kg Referring Provider Unknown [facility] Work Phone: 12-30-2021 08:00-0400 Diastolic blood pressure 79 mm[Hg] [facility] Work Phone: 12-30-2021 08:00-0400 Heart rate 63 /min [facility] Work Phone: 12-30-2021 08:00-0400 Respiratory rate 16 /min [facility] Work Phone: 12-30-2021 08:00-0400 SaO2% (BldA) [Mass fraction] 96 % [facility] Work Phone: 12-30-2021 08:00-0400 Systolic blood pressure 138 mm[Hg] [facility] Work Phone: 12-30-2021 07:01-0400 Body temperature 97.4 [degF] [facility] Work Phone: 12-30-2021 00:04-0400 Body height 195.58 cm [facility] Work Phone: 12-30-2021 00:04-0400 Body mass index (BMI) [Ratio] 65.7 kg/m2 [facility] Work Phone: 12-30-2021 00:04-0400 Body weight 251.7 kg [facility] Work Phone: Encounters Encounter Date Encounter Type Care Provider Facility Start: 11-25-2024 ambulatory Leonor Benitez y:[facility] Start: 11-21-2024 ambulatory AR Maravilla lity:[facility] Start: 11-15-2024 End: 11-15-2024 Patient encounter procedure Axel Marquis MD Work Phone: General Surgery Comment on above: Multinodular goiter (Primary Dx) Start: 11-15-2024 End: 11-15-2024 ambulatory AXEL MARQUIS Facility:[facility] Start: 11-08-2024 End: 11-08-2024 Telephone encounter Axel Marquis MD Work Phone: General Surgery Comment on above: Appointment (Pt at [facility] in [place] right now with no apt) Start: 11-08-2024 End: 11-08-2024 ambulatory UNKNOWN PROVIDER Facility:[facility] Start: 11-08-2024 End: 11-08-2024 Subsequent hospital visit by physician Joe Waters MD Work Phone: [facility] Radiology Comment on above: Multinodular goiter [E04.2] Start: 10-18-2024 End: 10-18-2024 Patient encounter procedure Axel Marquis MD Work Phone: General Surgery Comment on above: Multinodular goiter (Primary Dx) Start: 10-18-2024 End: 10-18-2024 ambulatory AXEL MARQUIS Facility:[facility] Start: 10-10-2024 End: 10-10-2024 Patient encounter procedure Axel Marquis MD Work Phone: General Surgery Comment on above: Multinodular goiter (Primary Dx) Start: 10-10-2024 End: 10-10-2024 ambulatory AXEL MARQUIS Facility:[facility] Start: 09-28-2024 End: 09-28-[address] Tiarra Bravo MD Work Phone: -Ultrasound [facility] Start: 09-28-2024 End: 09-28-[address] Leonor Aldrich MD -Ultrasound [facility] Work Phone: Start: 09-28-2024 End: 09-28-2024 ambulatory Leonor Aldrich Facility:[facility] Start: 09-21-2024 End: 09-21-[address] Tiarra Bravo MD Work Phone: -Laboratory [facility] Start: 09-21-2024 End: 09-21-[address] Leonor Aldrich MD -Laboratory [facility] Start: 09-21-2024 End: 09-21-2024 ambulatory Leonor Aldrich Facility:[facility] Start: 09-15-2024 ambulatory Leonor Aldrich Facilit y:[facility] Start: 09-15-[address] Leonor Aldrich MD -Occupational Therapy Work Phone: Start: 09-06-2024 Non-patient / Non-visit Taylor gage MACHINE APPLICATOR CEMENTER-C -[facility] Work Phone: Start: 09-06-2024 ambulatory Leonor Aldrich Facilit y:[facility] Start: 08-26-2024 Non-patient / Non-visit Taylor gage MACHINE APPLICATOR CEMENTER-C -[facility] Work Phone: Start: 08-26-2024 ambulatory Taylor Patel NP Facili ty:[facility] Start: 08-25-2024 ambulatory Omid Colindres Facility:[facility] Start: 08-25-2024 Non-patient / Non-visit Dr. Allyssa BUNN -[facility] Start: 08-25-2024 End: 08-25-[address] Tiarra Bravo MD Work Phone: -Cardiovascular Services Start: 08-25-2024 End: 08-25-2024 Patient encounter procedure Taylor Patel NP-C -Cardiovascular Services Work Phone: Start: 08-25-2024 End: 08-25-2024 ambulatory Taylor Patel NP Facility:[facility] Start: 08-16-2024 End: 08-16-[address] Tiarra Bravo MD Work Phone: [facility] Work Phone: Start: 08-16-2024 End: 08-16-[address] Leonor Aldrich MD -Cardiovascular Services Work Phone: Start: 08-16-2024 End: 08-16-2024 Patient encounter procedure Taylor Patel MACHINE APPLICATOR CEMENTER-C -[facility] Work Phone: Start: 08-16-2024 End: 08-16-[address] Tiarra Bravo MD Work Phone: [facility] Work Phone: Start: 08-16-2024 End: 08-16-2024 ambulatory Leonor Tapiamildred Facility:[facility] Start: 08-10-2024 Non-patient / Non-visit Dr. Lisette Cortes [facility] Work Phone: Start: 08-09-2024 Non-patient / Non-visit Dr. Lisette Cortes [facility] Work Phone: Start: 08-08-2024 Non-patient / Non-visit Dr. Lisette Cortes [facility] Work Phone: Start: 08-07-2024 Non-patient / Non-visit Dr. Lisette Cortes [facility] Work Phone: Start: 08-07-2024 ambulatory David Stallworth Facility:[facility] Start: 08-07-2024 End: 08-10-2024 Evaluation and management of inpatient Dr. Seb Cortes DO -[facility] Surgical 3 Work Phone: Start: 07-19-2024 End: 07-19-2024 Patient encounter procedure Taylor Patel NP-C -[facility] Work Phone: Start: 07-19-2024 End: 07-19-[address] Tiarra Bravo MD Work Phone: [facility] Work Phone: Start: 04-12-2024 End: 04-12-[address] Demetria Varela MD -Laboratory Work Phone: Start: 04-12-2024 End: 04-12-2024 ambulatory Demetria Varela Facility:[facility] Start: 02-22-2024 End: 02-22-2024 ambulatory Susie MUSA Facility:[facility] Start: 02-15-2024 ambulatory Bob Gibson [facility] Start: 02-15-2024 End: 02-15-2024 ambulatory Tiarra Bravo Facility:[facility] Start: 02-08-2024 End: 02-08-2024 ambulatory Susie MUSA Facility:[facility] Start: 01-25-2024 End: 01-25-2024 ambulatory Susie MUSA Facility:[facility] Start: 12-31-2023 End: 12-31-2023 ambulatory Tiarra Bravo Facility:[facility] Start: 12-14-2023 End: 12-14-2023 ambulatory Tiarra Bravo Facility:[facility] Start: 04-01-2023 End: 04-01-[address] Tiarra Bravo Work Phone: [facility] Work Phone: Start: 04-01-2023 End: 04-01-[address] Tiarra Bravo Work Phone: [facility]-Laboratory Work Phone: Start: 02-13-2023 End: 02-13-[address] Tiarra Bravo Work Phone: [facility] Work Phone: Start: 02-13-2023 End: 02-13-[address] [facility]iar[facility] Bravo [facility] Start: 02-09-2023 End: 02-09-[address] Tiarra Bravo Work Phone: [facility] Work Phone: Start: 02-04-2023 Non-patient / Non-visit Dr. Debra Bravo Work Phone: [facility] Start: 02-04-2023 End: 02-04-[address] Tiarra Bravo Work Phone: [facility] Work Phone: Start: 02-04-2023 End: 02-04-[address] Tiarra Bravo Work Phone: [facility]-Cardiovascula r Services Work Phone: Start: 01-20-2023 Non-patient / Non-visit Dr. Debra Bravo Work Phone: [facility] Work Phone: Start: 01-20-2023 End: 01-20-[address] Tiarra Bravo Work Phone: [facility] Work Phone: Start: 01-20-2023 End: 01-20-[address] [facility] Start: 01-15-2023 End: 01-15-[address] Tiarra Bravo Work Phone: [facility] Work Phone: Start: 01-15-2023 End: 01-15-[address] [facility] Start: 01-06-2023 End: 01-06-[address] Tiarra Bravo Work Phone: [facility] Work Phone: Start: 01-06-2023 End: 01-06-[address] Tiarra Bravo Work Phone: [facility] Work Phone: Start: 12-08-2022 End: 12-08-2022 ambulatory [facility] Work Phone: Start: 12-08-2022 End: 12-08-2022 [facility] Start: 06-19-2022 End: 06-19-2022 ambulatory [facility] Work Phone: Start: 06-19-2022 End: 06-19-2022 Patient encounter procedure [facility]-Laboratory Start: 04-13-2022 Message Tiarra Bravo Work Phone[facility] Work Phone: Start: 04-02-2022 End: 04-02-[address] Tiarra Bravo Facility:[id number] Start: 02-10-2022 End: 02-10-[address] Tiarra Bravo Work Phone: [facility] Work Phone: Start: 02-10-2022 End: 02-10-[address] Tiarra Bravo Work Phone: [facility] Start: 01-14-2022 End: 01-14-[address] Tiarra Bravo Work Phone: [facility] Start: 01-10-2022 AUDIT Referring Prov ider [facility] Work Phone: Start: 01-04-2022 Message Referring Prov ider Unknown [facility] Work Phone: Start: 12-30-2021 End: 01-03-2022 Evaluation and management of inpatient PCP UNKNOWN Facility:[id number] Start: 12-30-2021 End: 12-30-2021 Emergency department patient visit [facility]-Emergency Department Procedures Date Procedure Procedure Detail Performing Clinician Start: 11-08-2024 End: 11-08-2024 Biopsy thyroid percutaneous core needle Joe Waters MD Work Phone: Start: 09-28-2024 US scan of thyroid Dr. Tiarra Bravo MD Work Phone: Start: 09-21-2024 Urnls dip stick/tabl et reagent auto microscopy Dr. Tiarra Bravo MD Work Phone: Start: 09-21-[address] Tiarra Bravo MD Work Phone: Comment on above: According to the [facility] [facility] [employer],the reference interval for Thyroglobulin (TG) should berelated to euthyroid patients and not for patients whounderwent thyroidectomy. TG reference intervals for thesepatients depend on the residual mass of the thyroid tissueleft after surgery. Establishing a post-operative baselineis recommended. The assay limit of quantitation is 0.1ng/mLThyroglobulin measured by Abigail Donaldo [employer] Start: 09-21-20[address]o dy measurement [address] Tiarra Bravo MD Work Phone: Comment on above: Thyroglobulin Antibo dy measured by Abigail CoulterMethodologyIt should be noted that the presence of thyroglobulinantibodies may not be pathogenic nor diagnostic, especiallyat very low levels. The assay optical glass inspector has found thatfour percent of individuals without evidence of thyroiddisease or autoimmunity will have positive TgAb levels upto 4 IU/mL. Start: 09-21-2024 Vitamin D, 25-hydrox y measurement Dr. Tiarra Bravo MD Work Phone: Comment on above: Vitamin D StatusDefi ciency: <20 ng/mL (50nmol/L)Insufficiency: 20-30 ng/mL (50-75 nmol/L)Sufficiency: 30-100 ng/mL (75-250 nmol/L)Toxicity: >100 ng/mL (>250 nmol/L) Start: 08-10-[address] Tiarra [...] MD Work Phone: Start: 04-12-2024 Measurement of 3,4-methylenedioxymethamphetamin e in urine Dr. Tiarra Bravo MD Work Phone: Start: 04-12-2024 Methadone measurement, urine Dr. Tiarra Bravo MD Work Phone: Start: 04-12-[address] Tiarra Bravo MD Work Phone: Start: 12-30-2021 Computed tomography of abdomen and pelvis with intravenous contrast Start: 12-30-2021 CT of abdomen and pe lvis without contrast Start: 10-04-2004 Colonoscopy Axel archibald MD Work Phone: Start: 12-16-2003 Lipid 1996 panel - S james or Plasma Axel Marquis MD Work Phone: Viral antigen assay Plan of Treatment Date Care Activity Detail Author Start: 01-03-2025 Diabetes Screening Diabetes Screenin g [facility] Start: 11-08-2024 End: 11-08-2024 Biopsy thyroid percutaneous core needle BIOPSY THYROID Multinodular goiter 11/08/2024 11:28 AM EDT [facility] Start: 10-31-2024 Influenza vaccination Influenza Vacc ine (#1) [facility] Start: 10-18-2024 End: 10-18-2024 Patient encounter procedure 10/18/2024 10:30 AM EDT Office Visit General Surgery [address] [place] [address] Axel Marquis MD [address] [place] [address] 30 min fna left thyroid General Surgery Comment on above: 30 min fna left thyr oid Start: 08-16-2024 Evaluation of diagno stic study results [facility] Start: 08-10-2024 Patient discharge [facility] Start: 08-07-2024 Following clinical pathway protocol [facility] Start: 08-07-2024 Bacteria identified in Blood by Culture Blood Culture [facility] Start: 08-07-2024 Blood culture Blood Culture [facility] Start: 08-07-2024 Ambulation without limitation [facility] Start: 08-07-2024 Assessment of risk o f venous thromboembolism [facility] Start: 08-07-2024 Catheterization of vein [facility] Start: 08-07-2024 Insertion of cathete r into peripheral vein [facility] Start: 08-07-2024 Providing care accor ding to standard [facility] Start: 08-07-2024 End: 08-07-2024 [facility] Start: 08-07-2024 Verification routine [facility] Start: 08-07-2024 Admission procedure [facility] Start: 08-07-2024 Hospital admission, emergency, from emergency room, medical nature [facility] Start: 08-07-2024 End: 08-07-2024 [facility] Start: 07-19-2024 Patient referral [facility] Work Phone: Start: 07-19-2024 Evaluation of diagno stic study results 12 Lead EKG performed by [facility] Start: 03-02-2024 Advance Directive Discussion Advance Directive Discussion [facility] Start: 04-01-2023 Procedure [facility] Start: 06-19-2022 Procedure [facility] Start: 04-02-2022 ERCPANS, Provider: Argelia Abad, Status: Pen, Time: 7:30 AM ERCPANS, Provider: Argelia Abad, Status: Pen, Time: 7:[address] [facility] Work Phone: Start: 12-15-2008 Lipid panel Lipid Screening [facility] Start: 08-01-2007 Shingrix Vaccine (1 of 2) Kennedy grix Vaccine (1 of 2) [facility] Start: 10-04-2005 Screening for malign ant neoplasm of colon [facility] Start: 2002 Prostate specific an tigen measurement Prostate Cancer Screening Discussion [facility] Start: 2002 Screening for malign ant neoplasm of colon [facility] Start: 1976 Urine microalbumin profile DTaP,Tdap,Td Vaccine (1 - Tdap) [facility] Start: 08-01-1975 Anxiety Screening Anxiety Screening [facility] Start: 08-01-1975 Depression Screening Depression Scre ening [facility] Start: 08-01-1975 Hepatitis C screening Hepatitis C Sc reening [facility] 24 Hour ECG [facility] Basic metabolic 2008 panel with ionized calcium - Serum or Plasma [facility] CBC W Auto Different ial panel - Blood [facility] End: 11-08-2024 CYTOLOGY NON-BILINGUAL SALES REPRESENTATIVE [facility] Work Phone: Comment on above: ONCE for 1 Occurrenc es starting 11/08/2024 until 11/08/2024, 1 completed Guidance for percuta neous biopsy.core needle of Thyroid gland IMAGING GUIDED BIOPSY THYROID Radiology Routine Multinodular goiter Ordered: 10/18/2024 [facility] Comment on above: Ordered: 10/18/2024 Patient referral [facility] Work Phone: Troponin T.cardiac [Mass/volume] in Serum or Plasma by High sensitivity method [facility] Troponin T.cardiac [Mass/volume] in Serum or Plasma by High sensitivity method [facility] Heart [facility] Heart [facility] US THYROID BIOPSY LE FT (POC) SURG USE ONLY US THYROID BIOPSY LEFT (POC) SURG USE ONLY Imaging Procedures Routine Multinodular goiter Ordered: 10/18/2024 [facility] Work Phone: Comment on above: Ordered: 10/18/2024 Immunizations Immunization Date Immunization Notes Care Provider [facility] 12-14-2023 influenza virus vaccine, unspecified formulation Axel Marquis MD Work Phone: [facility] 01-01-2020 Influenza virus vaccine [facility] 01-09-2014 Influenza virus vaccine [facility] 12-31-2004 influenza virus vaccine, unspecified formulation Axel Marquis MD Work Phone: [facility] Work Phone: Payers Date Payer Category Payer Private Health Insurance [id number] 2024 Unknown [id number] 2024 Unknown [id number] 2023 Self-pay [id number] 2023 Medicare [id number] 2015 Unknown [id number] 2015 Unknown [id number] 1955 Unknown [id number] 2.16.8 [id number] 1955 Unknown [id number] .16.8 40.1.576270.3.579.2.9 1955 Unknown [id number] 2.16. [id number] Unknown ANTHEM Unknown [id number] 2.16.8 40.1.379951.3.579.2.462 Unknown [id number] 2.16.8 40.1.643478.3.579.2.462 Unknown [id number] 2.16.8 40.1.131638.3.579.2.462 Unknown [id number] 2.16.8 40.1.192655.3.579.2.462 Unknown [id number] 2.16.8 40.1.348976.3.579.2.462 Unknown [id number] 2.16.8 40.1.274690.3.579.2.462 Unknown [id number] 2.16.8 40.1.542135.3.579.2.462 Unknown [id number] 2.16.8 40.1.496534.3.579.2.462 Unknown [id number] 2.16.8 40.1.931132.3.579.2.462 Unknown [id number] 2.16.8 40.1.980789.3.579.2.462 Unknown [id number] 2.16.8 40.1.782084.3.579.2.462 Unknown [id number] 2.16.8 40.1.664466.3.579.2.462 Unknown [id number] 2.16.8 40.1.726485.3.579.2.462 Unknown [id number] 2.16.8 40.1.366061.3.579.2.462 Unknown [id number] 2.16.8 40.1.386877.3.579.2.462 Unknown [id number] 2.16.8 40.1.404028.3.579.2.462 Unknown [id number] 2.16.8 40.1.678672.3.579.2.462 Unknown [id number] 2.16.8 40.1.059806.3.579.2.462 Unknown [id number] 2.16.8 40.1.936451.3.579.2.462 Unknown [id number] 2.16.8 40.1.764584.3.579.2.462 Unknown [id number] 2.16.8 40.1.295646.3.579.2.462 Unknown [id number] 2.16.8 40.1.408009.3.579.2.462 Unknown [id number] 2.16.8 40.1.792180.3.579.2.462 Unknown [id number] 2.16.8 40.1.550220.3.579.2.462 Unknown [id number] 2.16.8 40.1.671203.3.579.2.462 Unknown [id number] 2.16.8 40.1.840622.3.579.2.462 Social History Date Type Detail Facility Start: 12-30-2021 End: 02-09-2023 Tobacco smoking status PAIS Unknown if ever smoked [facility] Start: 05-06-2020 None [facility] Start: 05-06-2020 Spouse/ Significant Other [facility] Start: 07-23-2020 Non-smoker [facility] Start: 1955 Sex Assigned At Male [facility] Start: 02-15-2024 End: 08-07-2024 Tobacco smoking status NHIS Never smoked tobacco (finding) [facility] Start: 08-13-2004 End: 11-15-2024 Alcoholic beverage intake Current non-drinker of alcohol (finding) [facility] Start: 05-29-2020 End: 10-10-2024 History of Social function [facility] Start: 05-29-2020 End: 10-10-2024 Patient Health Questionnaire 2 item (PHQ-2) [Reported] [facility] Start: 02-01-2012 Adult Depression Screening Assessment 2 [facility] Start: 05-30-2020 Gender identity Identifies as male gender (finding) [facility] Start: 05-30-2020 Sexual orientation Heterosexual (finding) [facility] Goals Date Patient Goal Desired Activity /State Personal health goal Functional Status Date Assessment Result Facility 08-10-2024 Functional status Chair [facility] Work Phone: Mental Status Date Assessment Result Facility 08-10-2024 Cognitive function Voice/Name [facility] Work Phone: Clinical Notes 12-25-2020 to 11-15-2024 Axel Marquis MD - 11/15/2024 2:35 PM EDTTelephone Encounter - Mary Haynes MA - 11/08/2024 2:39 PM EDTTelephone Encounter - Mary Haynes MA - 11/08/2024 2:39 PM EDTPatient Instructions Note Date & Type Note Facility 11-15-2024 Note HNO ID: [id number] Author: AXEL MARQUIS MD Service: ? Author Type: Physician Type: Progress Notes Filed: 11/15/2024 14:38 Note Text: Subjective:Richi Hu is a 69-year-old male presenting for follow-up after a recent FNA biopsy of a thyroid nodule. Richi reports that the FNA biopsy of the left thyroid nodule was performed without complications, and the results were benign, consistent with a colloid nodule. He inquires about the potential for the nodule to become malignant in the future. He also asks about the size of the nodule and the need for future monitoring or additional biopsies. He expresses relief at the benign results, stating that he had been expecting worse news. Richi also discusses recent stress related to changes at his former workplace, describing it as a bloodletting where many colleagues were let go. He compares the situation to [facility] [facility] and expresses concern for the future of the company. He notes that he retired in May and is no longer directly involved, but he continues to receive calls from former colleagues in [place] asking about the situation. Objective:There were no vitals taken for this visit. No hard palpable nodules are identified in the neck. Labs: Tests: - Fine Needle Aspiration: Benign, consistent with a colloid nodule Imaging: - Neck Ultrasound: Left thyroid nodule measuring 1.4 ? 1.1 ? 0.8 cm; additional sub-centimeter cystic areas noted with no indication for biopsy Assessment/plan 1. Multinodular goiter (E04.2) FNA of left thyroid nodule (1.4 x 1.1 x 0.8 cm) benign, consistent with colloid nodule; multiple subcentimeter cystic nodules present, none meeting criteria for biopsy at this time. - Educated patient that nodules are benign and do not require intervention unless growth or change occurs. - Advised that any nodule growth >20% or meeting TIRADS criteria will require repeat FNA. - Annual neck ultrasound recommended; patient to coordinate with radiology or through PCP. - Advised to return sooner if radiology recommends FNA or if there are changes in nodule size. [facility] 11-15-2024 History of Presen t illness Narrative Subjective:Richi Hu is a 69-year-old male presenting for follow-up after a recent FNA biopsy of a thyroid nodule. Richi reports that the FNA biopsy of the left thyroid nodule was performed without complications, and the results were benign, consistent with a colloid nodule. He inquires about the potential for the nodule to become malignant in the future. He also asks about the size of the nodule and the need for future monitoring or additional biopsies. He expresses relief at the benign results, stating that he had been expecting worse news. Richi also discusses recent stress related to changes at his former workplace, describing it as a bloodletting where many colleagues were let go. He compares the situation to [facility] and expresses concern for the future of the company. He notes that he retired in May and is no longer directly involved, but he continues to receive calls from former colleagues in [place] asking about the situation. Objective:There were no vitals taken for this visit. No hard palpable nodules are identified in the neck. Labs: Tests: - Fine Needle Aspiration: Benign, consistent with a colloid nodule Imaging: - Neck Ultrasound: Left thyroid nodule measuring 1.4 1.1 0.8 cm; additional sub-centimeter cystic areas noted with no indication for biopsy Assessment/plan 1. Multinodular goiter (E04.2) FNA of left thyroid nodule (1.4 x 1.1 x 0.8 cm) benign, consistent with colloid nodule; multiple subcentimeter cystic nodules present, none meeting criteria for biopsy at this time. - Educated patient that nodules are benign and do not require intervention unless growth or change occurs. - Advised that any nodule growth >20% or meeting TIRADS criteria will require repeat FNA. - Annual neck ultrasound recommended; patient to coordinate with radiology or through PCP. - Advised to return sooner if radiology recommends FNA or if there are changes in nodule size. documented in this encounter [facility] 11-08-2024 Telephone encount er Note Pt currently at [facility] for biopsy. Mary Haynes MA [facility] 11-08-2024 Miscellaneous Notes Formattin g of this note might be different from the original. Pt currently at [facility] for biopsy. Mary Haynes MA Patient called from [facility] pt said he received a detailed message from Jannet at [facility] [phone] saying to arrive at [facility] at 8:30am on 11-08 for a thyroid biopsy Patient is waiting at [facility] right now he does not have an order or appointment Patient can be reached at [phone] Please advise documented in this encounter [facility] 11-08-2024 Progress note Formatting of t his note might be different from the original. Radiology Service Progress Note PATIENT NAME: Richi Hu DATE OF SERVICE: November 08, 2024 TIME: 11:54 AM PATIENT IDENTITY VERIFICATION COMPLETED USING TWO (2) IDENTIFIERS: Name and Date of confirmed by patient verbally. FALL SCREENING: Has the patient had 2 falls in the last year or 1 fall with injury or currently using an Ambulatory Assistive Device (Walker, Cane, Wheelchair, Crutches, etc.)? No PATIENT GENDER DATA: Assigned male at PATIENT RELEVANT IMPLANT DATA REVIEWED: Not Applicable PATIENT PRESENTS WITH AN IMPLANTABLE OR ATTACHED HEALTH INFORMATION CODER: No RADIOLOGY DEPARTMENT: Biopsy and Ultrasound PERIPHERAL IV DATA: Not applicable SIGNED BY: Jesús Forrest November 08, 2024 11:54 AM [facility] 11-08-2024 Miscellaneous Notes Formattin g of this note might be different from the original. Radiology Service Progress Note PATIENT NAME: Richi Hu DATE OF SERVICE: November 08, 2024 TIME: 11:54 AM PATIENT IDENTITY VERIFICATION COMPLETED USING TWO (2) IDENTIFIERS: Name and Date of confirmed by patient verbally. FALL SCREENING: Has the patient had 2 falls in the last year or 1 fall with injury or currently using an Ambulatory Assistive Device (Walker, Cane, Wheelchair, Crutches, etc.)? No PATIENT GENDER DATA: Assigned male at PATIENT RELEVANT IMPLANT DATA REVIEWED: Not Applicable PATIENT PRESENTS WITH AN IMPLANTABLE OR ATTACHED HEALTH INFORMATION CODER: No RADIOLOGY DEPARTMENT: Biopsy and Ultrasound PERIPHERAL IV DATA: Not applicable SIGNED BY: Jesús Forrest November 08, 2024 11:54 AM documented in this encounter [facility] 11-08-2024 Telephone encount er Note Patient called from [facility] pt said he received a detailed message from Jannet at [facility] [phone] saying to arrive at [facility] at 8:30am on 11-08 for a thyroid biopsy Patient is waiting at [facility] right now he does not have an order or appointment Patient can be reached at [phone] Please advise [facility] 10-18-2024 Note HNO ID: [id number] Author: AXEL MARQUIS MD Service: ? Author Type: Physician Type: Progress Notes Filed: 10/18/2024 12:59 Note Text: Unable to see the lesion today with my ultrasound. Will get him scheduled in interventional radiology. No charge for today's visit. [facility] 10-18-2024 History of Presen t illness Narrative Unable to see the lesion today with my ultrasound. Will get him scheduled in interventional radiology. No charge for today's visit. documented in this encounter [facility] 10-18-2024 Instructions Tere Akbar RN - 10/18/2024 10:21 AM EDT The following instructions are important for you related to your office visit today with the [facility] General Surgeons. Instructions After THYROID FINE NEEDLE ASPIRATION Please do not take aspirin or other blood thinners for the next few days. If you have bleeding from the needle site, hold pressure with a clean gauze. If the bleeding continues, contact our office immediately. I recommend taking Advil or Tylenol for the discomfort. An ice pack may improve your discomfort to the area. Contact our office immediately if you have any questions or concerns @ [phone]. If you note any additional difficulties, questions, or concerns, you should contact our office immediately @ [phone] and ask to be transferred to the General Surgery department. documented in this encounter [facility] 10-12-2024 Note HNO ID: [id number] Author: AXEL MARQUIS MD Service: ? Author Type: Physician Type: Progress Notes Filed: 10/12/2024 12:32 Note Text: HISTORY AND PHYSICAL Richi Hu 1955 REFERRING PHYSICIAN: No ref. provider found CHIEF COMPLAINT: Thyroid Nodule (Sent per PCP) HPI: Richi Hu is a 69-year-old male, with a history of thyroid nodules, CVA in 2019, and [place], presenting for evaluation of thyroid nodules. Richi was recently informed by his clinician that he has thyroid nodules, which were discovered during a physical examination. He was subsequently referred for an ultrasound, which confirmed the presence of nodules on the left side of the thyroid. He denies prior knowledge of these nodules and has never had an ultrasound of his neck before this incident. He denies any symptoms such as dysphagia, hoarseness, or neck pain associated with the nodules. Richi has a history of CVA in 2019 and is currently on Xarelto. 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 He is also on Lasix for heart condition. Recently, Richi sustained a leg injury while doing yard work, which led to an infection. He was hospitalized for a few days and his Lasix dosage was increased from 20-30 mg BID to 60 mg BID to manage the swelling. He reports that the swelling has since decreased. No past medical history on file. No past surgical history on file. Current Outpatient Medications Medication Sig rivaroxaban (XARELTO) 20 mg tablet Take 20 mg by mouth once daily. mecobalamin, vitamin B12, 5,000 mcg ODT Take 1 tablet by mouth once daily. losartan (COZAAR) 50 mg tablet Take 50 mg by mouth once daily. latanoprost (XALATAN) 0.005 % ophthalmic solution Use 1 drop in both eyes daily at bedtime. furosemide (LASIX) 40 mg tablet Take 60 mg by mouth two times a day. mv-min/folic/K1/lycopen/lutein (CENTRUM SILVER MEN PO) Take 1 tablet by mouth once daily. magnesium aspart,citrate,oxide 400 mg magnesium cap Take 1 capsule by mouth once daily. sotalol (BETAPACE) 120 mg tablet Take 120 mg by mouth two times a day. spironolactone (ALDACTONE) 25 mg tablet Take 25 mg by mouth once daily. cholecalciferol, Vitamin D3, (VITAMIN D3) 1,250 mcg (50,000 unit) cap capsule Take 50,000 Units by mouth one time a week. ULTRACET 37.5 MG-325 MG ORAL TAB as needed VOLTAREN 75 MG ORAL TBEC as needed XIFAXAN 200 MG ORAL TAB as needed LEVBID 0.375 MG ORAL TB12 take 1 tab by mouth 2 times per day No current facility-administered medications for this visit. ALLERGIES: Penicillins and Sulfa (Sulfonamide Antibiotics) PERSONAL HISTORY: SOCIAL HISTORY[1] FAMILY HISTORY: No family history on file. REVIEW OF SYMPTOMS: The review of systems data was entered by the nurse and reviewed by me There are no exam notes on file for this visit. PHYSICAL EXAMINATION: General: The patient is 69 year old male, well nourished, well hydrated in no acute distress. The patient is oriented to time, place, and person. VITALS: Blood pressure 120/71, pulse 85, resp. rate 14, weight (!) 203.7 kg (449 lb), SpO2 97%. HEENT: Normal cephalic, ataumatic, pupils are equally round, sclera are anicteric, mucous membranes are moist, oropharynx is clear. Neck has no masses, asymmetry or lymphadenopathy. Thyroid is unremarkable. Respiratory: Clear to auscultation and percussion. Normal respiratory excursion and pattern. Cardiac: Examination is regular rate and rhythm. Abdominal exam: Soft, nontender, with no palpable masses. No hepatosplenomegaly. No palpable hernias. Rectal exam: exam deferred Extremities: no clubbing, cyanosis or edema. No adenopathy. Other: LABORATORY VALUES: As Noted RADIOLOGIC STUDIES: As Noted Assessment IMPRESSION: Multinodular goiter (primary encounter diagnosis) PLAN: 1. Multinodular goiter (E04.2) Ultrasound imaging reveals a nodule on the left side of the thyroid. Nodule is not clearly defined on high-resolution imaging. - Scheduled ultrasound-guided fine needle aspiration (FNA) to obtain cellular samples for analysis. - Patient to discontinue Xarelto for 3 days prior to the FNA procedure. We discussed your thyroid nodule: - I reviewed your imaging, and there is a nodule on the left side of your thyroid that requires further evaluation. - I recommend a fine needle aspiration (FNA) biopsy to collect cells from the nodule for analysis. During the procedure, I will use ultrasound guidance, clean the area with alcohol, numb your skin with local anesthetic, and insert a needle 3-4 times to collect the necessary samples. - You are currently taking Xarelto (a blood thinner). Please stop taking Xarelto 3 days before the FNA procedure to reduce the risk of bleeding. - The office will contact you to schedule the FNA. Once you have a date, please ensure you stop Xarelto as instructed. We discussed your recent medical history: - You mentioned a history of stroke (more content not included)... [facility] 10-12-2024 History of Presen t illness Narrative HISTORY AND PHYSICAL Richi Hu 1955 REFERRING PHYSICIAN: No ref. provider found CHIEF COMPLAINT: Thyroid Nodule (Sent per PCP) HPI: Richi Hu is a 69-year-old male, with a history of thyroid nodules, CVA in 2019, and [place], presenting for evaluation of thyroid nodules. Richi was recently informed by his clinician that he has thyroid nodules, which were discovered during a physical examination. He was subsequently referred for an ultrasound, which confirmed the presence of nodules on the left side of the thyroid. He denies prior knowledge of these nodules and has never had an ultrasound of his neck before this incident. He denies any symptoms such as dysphagia, hoarseness, or neck pain associated with the nodules. Richi has a history of CVA in 2019 and is currently on Xarelto. 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 He is also on Lasix for heart condition. Recently, Richi sustained a leg injury while doing yard work, which led to an infection. He was hospitalized for a few days and his Lasix dosage was increased from 20-30 mg BID to 60 mg BID to manage the swelling. He reports that the swelling has since decreased. No past medical history on file. No past surgical history on file. Current Outpatient Medications Medication Sig rivaroxaban (XARELTO) 20 mg tablet Take 20 mg by mouth once daily. mecobalamin, vitamin B12, 5,000 mcg ODT Take 1 tablet by mouth once daily. losartan (COZAAR) 50 mg tablet Take 50 mg by mouth once daily. latanoprost (XALATAN) 0.005 % ophthalmic solution Use 1 drop in both eyes daily at bedtime. furosemide (LASIX) 40 mg tablet Take 60 mg by mouth two times a day. mv-min/folic/K1/lycopen/lutein (CENTRUM SILVER MEN PO) Take 1 tablet by mouth once daily. magnesium aspart,citrate,oxide 400 mg magnesium cap Take 1 capsule by mouth once daily. sotalol (BETAPACE) 120 mg tablet Take 120 mg by mouth two times a day. spironolactone (ALDACTONE) 25 mg tablet Take 25 mg by mouth once daily. cholecalciferol, Vitamin D3, (VITAMIN D3) 1,250 mcg (50,000 unit) cap capsule Take 50,000 Units by mouth one time a week. ULTRACET 37.5 MG-325 MG ORAL TAB as needed VOLTAREN 75 MG ORAL TBEC as needed XIFAXAN 200 MG ORAL TAB as needed LEVBID 0.375 MG ORAL TB12 take 1 tab by mouth 2 times per day No current facility-administered medications for this visit. ALLERGIES: Penicillins and Sulfa (Sulfonamide Antibiotics) PERSONAL HISTORY: SOCIAL HISTORY[1] FAMILY HISTORY: No family history on file. REVIEW OF SYMPTOMS: The review of systems data was entered by the nurse and reviewed by me There are no exam notes on file for this visit. PHYSICAL EXAMINATION: General: The patient is 69 year old male, well nourished, well hydrated in no acute distress. The patient is oriented to time, place, and person. VITALS: Blood pressure 120/71, pulse 85, resp. rate 14, weight (!) 203.7 kg (449 lb), SpO2 97%. HEENT: Normal cephalic, ataumatic, pupils are equally round, sclera are anicteric, mucous membranes are moist, oropharynx is clear. Neck has no masses, asymmetry or lymphadenopathy. Thyroid is unremarkable. Respiratory: Clear to auscultation and percussion. Normal respiratory excursion and pattern. Cardiac: Examination is regular rate and rhythm. Abdominal exam: Soft, nontender, with no palpable masses. No hepatosplenomegaly. No palpable hernias. Rectal exam: exam deferred Extremities: no clubbing, cyanosis or edema. No adenopathy. Other: LABORATORY VALUES: As Noted RADIOLOGIC STUDIES: As Noted Assessment IMPRESSION: Multinodular goiter (primary encounter diagnosis) PLAN: 1. Multinodular goiter (E04.2) Ultrasound imaging reveals a nodule on the left side of the thyroid. Nodule is not clearly defined on high-resolution imaging. - Scheduled ultrasound-guided fine needle aspiration (FNA) to obtain cellular samples for analysis. - Patient to discontinue Xarelto for 3 days prior to the FNA procedure. We discussed your thyroid nodule: - I reviewed your imaging, and there is a nodule on the left side of your thyroid that requires further evaluation. - I recommend a fine needle aspiration (FNA) biopsy to collect cells from the nodule for analysis. During the procedure, I will use ultrasound guidance, clean the area with alcohol, numb your skin with local anesthetic, and insert a needle 3-4 times to collect the necessary samples. - You are currently taking Xarelto (a blood thinner). Please stop taking Xarelto 3 days before the FNA procedure to reduce the risk of bleeding. - The office will contact you to schedule the FNA. Once you have a date, please ensure you stop Xarelto as instructed. We discussed your recent medical history: - You mentioned a history of stroke in 2019 and ongoing use of Xarelto. - You also shared a history of leg swelling and infection, which was treated in the hospital. Your Lasix dosage was increased to manage swelling, and you are currently taking 60 mg twice daily. Next steps: - Await a call from our office to schedule your FNA biopsy. - Stop Xarelto 3 days before the scheduled procedure. - If you have any questions or concerns before the procedure, please contact our office. Diagnoses: (E04.2) Multinodular goiter (primary encounter diagnosis) Return to Clinic: The patient is instructed to follow-up with me 1 week post operatively. Axel Marquis III, MD [1] Social History Tobacco Use Smoking status: Never Substance Use Topics Alcohol use: No REVIEW OF SYSTEMS: General: The patient notes fatigue, denies weight loss, denies weight gain, denies feeling hot, and denies feelings of cold. Eyes: The patient notes glaucoma, notes eye injury/surgery, wears glasses or contacts. Ear/Nose/Throat: The patient denies allergies, denies hayfever, denies ear infections, and denies bloody noses. Cardiovascular: The patient denies chest pain, notes heart disease, notes high blood pressure,denies cardiac stent, denies prior heart attack, denies irregular heart beat, denies high cholesterol, denies poor circulation, denies heart failure, other cardiac issues, denies claudication, denies cold feet, denies peripheral arterial stent. Respiratory: The patient denies tuberculosis, denies pneumonia, denies frequent cough, denies pulmonary embolism, denies shortness of breath, and denies coughing up blood. Gastrointestinal: The patient denies difficulty swallowing, denies acid reflux, denies ulcers, denies vomiting, denies jaundice/hepatitis, denies gallbladder problems, denies black or tarry stools, denies hemorrhoids, denies bleeding from rectum, denies diverticulitis, denies constipation, denies diarrhea, denies loss of stool control, and denies hernias. Kidney/Bladder: The patient denies kidney stones, denies urine infections, and denies bloody urine. Skin: The patient denies a history of skin cancer, denies bleeding/changing moles, and denies a history of skin rash. Neurologic: The patient denies a history of epilepsy/convulsions, denies headaches, denies head/spinal injuries, and notes stroke/TIA. Psychiatric: The patient denies psychiatric medications, denies depression, and denies voices, denies substance abuse. Endocrine: The patient denies thyroid disorders, denies diabetes, and denies hormonal problems. Hematologic: The patient denies a history of bruising, denies bleeding, and denies anemia, notes blood clots. Infections: The patient notes a history of measles and mumps, denies rheumatic fever, and denies sexually transmitted diseases. Musculoskeletal: The patient notes back pain/injury, denies back problems, notes sciatica, denies knee/foot trouble, denies arthritis, or denies gout. When was patient's last Mammogram screening? N/A Last Colonoscopy: Gera Meyer RN documented in this encounter [facility] 10-10-2024 Note HNO ID: [id number] Author: GERA MEYER RN Service: ? Author Type: Registered Nurse Type: Progress Notes Filed: 10/12/2024 12:32 Note Text: REVIEW OF SYSTEMS: General: The patient notes fatigue, denies weight loss, denies weight gain, denies feeling hot, and denies feelings of cold. Eyes: The patient notes glaucoma, notes eye injury/surgery, wears glasses or contacts. Ear/Nose/Throat: The patient denies allergies, denies hayfever, denies ear infections, and denies bloody noses. Cardiovascular: The patient denies chest pain, notes heart disease, notes high blood pressure,denies cardiac stent, denies prior heart attack, denies irregular heart beat, denies high cholesterol, denies poor circulation, denies heart failure, other cardiac issues, denies claudication, denies cold feet, denies peripheral arterial stent. Respiratory: The patient denies tuberculosis, denies pneumonia, denies frequent cough, denies pulmonary embolism, denies shortness of breath, and denies coughing up blood. Gastrointestinal: The patient denies difficulty swallowing, denies acid reflux, denies ulcers, denies vomiting, denies jaundice/hepatitis, denies gallbladder problems, denies black or tarry stools, denies hemorrhoids, denies bleeding from rectum, denies diverticulitis, denies constipation, denies diarrhea, denies loss of stool control, and denies hernias. Kidney/Bladder: The patient denies kidney stones, denies urine infections, and denies bloody urine. Skin: The patient denies a history of skin cancer, denies bleeding/changing moles, and denies a history of skin rash. Neurologic: The patient denies a history of epilepsy/convulsions, denies headaches, denies head/spinal injuries, and notes stroke/TIA. Psychiatric: The patient denies psychiatric medications, denies depression, and denies voices, denies substance abuse. Endocrine: The patient denies thyroid disorders, denies diabetes, and denies hormonal problems. Hematologic: The patient denies a history of bruising, denies bleeding, and denies anemia, notes blood clots. Infections: The patient notes a history of measles and mumps, denies rheumatic fever, and denies sexually transmitted diseases. Musculoskeletal: The patient notes back pain/injury, denies back problems, notes sciatica, denies knee/foot trouble, denies arthritis, or denies gout. When was patient's last Mammogram screening? N/A Last Colonoscopy: Gera Meyer RN [facility] 09-28-2024 Radiology Diagnostic study note [facility] Imaging Services [address] [place] [address] Thyroid MR#: [id number] Acct: [id number] Name: RICHI HU Rep #: [id number] : 1955 M 69 From: Donn Irizarry MD PCP: Dr. Leonor Aldrich MD Status: RE G CLI Study:Thyroid Date of Exam: 09/28/24 Exam# [id number] Ordering Dr: Leonor Aldrich MD PROCEDURE: THYROID 09/28/2024 REASON FOR EXAM: NODULE TECHNIQUE: THYROID COMPARISON: None FINDINGS: Right thyroid lobe size: 5.4 cm x 2.4 cm x 1.5 cm Left thyroid lobe size: 4.7 cm 1.6 cm 1.7 cm Isthmus: 0.4 cm Background parenchymal echotexture is homogeneous. Nodules: There are 3 subcentimeter cysts in the right lobe of the thyroid. 1.4 cm 1.1 cm x 0.8 cm hypoechoic solid nodule in the left lobe of the thyroid. This is heterogeneous. TI-RADS category 3. There are 2, subcentimeter cystic nodules in the lower lobe. US/Thyroid IMPRESSION: Bilateral cystic nodules as described. Dominant 1.4 cm x 1.1 cm x 0.8 cm hypoechoic solid nodule in the left lobe of the thyroid as described. TI-RADS category 3. Tissue diagnosis recommended. RECOMMENDATION: Based on most suspicious nodule. Nodule size = largest diameter Only evaluate nodule if =>5 mm. Growth > 20% in 2 dimensions = worsening. Follow up to 4 nodules. Recommend biopsy for no more than 2 nodules. Reading Location: [id number] CC: Dr. Leonor Aldrich MD ~ Security Controls Assessor: Signed [facility] 08-10-2024 Discharge summary Note Date/Time August 10, 2024 12:06pm [facility] Medical Records Department [address] [place] [address] Instructions for Home/Discharge Instructions 08/10/24 1150 MR#: [id number] Acct: [id number] Name: RICHI HU Rep #:[id number] : [...] orally every evening with food: Fax to [facility]: losartan 50 mg tablet 50 mg [...] CC: Dr. Omid Colindres MD ~ Signed [facility] Work Phone: 1(387) 478-718606-11-2025 Discharge summary [facility] Medical Records Department [address] [place] [address] Instructions for Home/Discharge Instructions 08/10/24 1150 MR#: [id number] Acct: [id number] Name: RICHI HU Rep #:[id number] : [...] orally every evening with food: Fax to [facility]: losartan 50 mg tablet 50 mg [...] can be placed): Home, Self Care 08/10/24 1206Seb Cortes DO CC: Dr. Omid Colindres MD ~ Signed [facility]06-11-2025 [facility] Medical Records Department [address] [place] [address] Discharge Summary 08/10/24 1206 MR#: [id number] Acct: [id number] Name: RICHI HU Rep #: [id number] : 1955 69 From: Seb Cortes DO PCP: Dr. Omid Colindres MD Status:DIS IN Location: [facility] [id number] Providers Date of Admission: 08/07/24 Date of [...] unit) capsule 25 mcg PO DAILY vitamin 07/25/20 multivitamin (Multiple Vitamins tablet) 1 tab PO [...] was seen in the emergency room at [facility] with chief complaint of shortness of breath [...] the right knee. Patient was admitted to [place] [address] and placed on IV Lasix for his anasarca and IV vancomycin. Over the next several days, patient's leg redness improved but he continued to have problems with peripheral edema below the knees. 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 Omid Colindres MD Status:ADM I N Location: [place] [address] Reason for Visit Reason for Visit: Diagnoses [...] 35 minutes Charges/Coding Visit Charges Inpatient E&M: 29847 Subs Hosp L2 08/09/241910 <Electronically signed by Seb Cortes DO> Cosigner Signature (if applicable): CC: ~ Signed [facility] Work Phone: 1(945) 472-283306-10-2025 Progress note [facility] Medical Records Department [address] [place] [address] Progress Note - Hospitalist 08/09/241908 MR#: [id number] Acct: [id number] Name: RICHI HU Rep #:[id number] : 1955 69 From: Seb Cortes DO PCP: Dr. Omid Colindres MD Status:ADM I N Location: [place] [address] Reason for Visit Reason for Visit: Diagnoses [...] 35 minutes Charges/Coding Visit Charges Inpatient E&M: 10667 Subs Hosp L2 08/09/241910 Cosigner Signature (if applicable): CC: ~ Signed [facility]06-09-2025 Progress note Author Seb Cortes [facility] Note Date/Time August 08, 2024 7:31p m [facility] Medical Records Department [address] [place] [address] Progress Note - Hospitalist 08/08/241927 MR#: [id number] Acct: [id number] Name: RICHI HU Rep #:[id number] : 1955 69 From: Seb Cortes DO PCP: Dr. Omid Colindres MD Status:ADM I N Location: [place] [id number] Reason for Visit Reason for Visit: Diagnoses [...] (Auto) 68.4, Lymph % (Auto) 18.1 L, [place] % (Auto) 11.4 H, Eos % (Auto) [...] 35 minutes Charges/Coding Visit Charges Inpatient E&M: 58923 Subs Hosp L2 08/08/241930 <Electronically signed by Seb Cortes DO> Cosigner Signature (if applicable): CC: ~ Signed [facility] Work Phone: 1(350) 425-802506-09-2025 Progress note [facility] Medical Records Department [address] [place] [address] Progress Note - Hospitalist 08/08/241927 MR#: [id number] Acct: [id number] Name: RICHI HU Rep #:[id number] : 1955 69 From: Seb Cortes DO PCP: Dr. Omid Colindres MD Status:ADM I N Location: [place] [address] Reason for Visit Reason for Visit: Diagnoses [...] (Auto) 68.4, Lymph % (Auto) 18.1 L, [place] % (Auto) 11.4 H, Eos % (Auto) [...] 35 minutes Charges/Coding Visit Charges Inpatient E&M: 11072 Subs Hosp L2 08/08/241930 Cosigner Signature (if applicable): CC: ~ Signed [facility]06-09-2025 History and physical note Author [facility] Note Date/Time August 08, 2024 8:31a m [facility] Medical Records Department [address] [place] [address] H&P Exam - Hospitalist 08/07/24 1507 MR#: [id number] Acct: [id number] Name: RICHI HU Rep #:[id number] : 1955 69 From: Seb Cortes DO PCP: Dr. Omid Colindres MD Status:ADM I N Location: [facility] [id number] HPI - General General Date of Admission: 08/07/24 Date of Service: 08/07/24 Chief Complaint: Shortness of breath, right leg redness/pain HPI Narrative RICHI HU, is a 69 M who presents to the emergency room at [facility] with complaints of shortness of breath particularly [...] received IV clindamycin. Labs will be monitored. [facility] Medical History (Updated 08/07/24 @ 14:02 by [...] Hives Verified 08/07/24 11:09 Antibiotics) Family History (Reviewed 07/22/24 @ 16:16 by Taylor Patel MACHINE APPLICATOR CEMENTER, MACHINE APPLICATOR CEMENTER-C) Father Cancer glioblastoma Mother No problems noted. [...] 76.2 H, Lymph % (Auto) 14.0 L, [place] % (Auto) 8.6, Eos % (Auto) 0.5, [...] IMPRESSION: No acute process detected. Reading Location: [facility] Chest X-Ray 08/07/24 12:12 IMPRESSION: No Acute Findings. Moderate cardiomegaly. Reading Location: [facility] Assessment & Plan Assessment/Plan (1) Exertional dyspnea: PLAN: Plan 1. Right leg cellulitis-patient will be admitted to [facility], he will be given IV clindamycin [...] 75 minutes Charges/Coding Visit Charges Inpatient E&M: 45348 Init Hosp L3 08/08/24 0831 <Electronically signed by Seb Cortes DO> Cosigner Signature (if applicable): CC: Dr. Seb Cortes DO; Dr. Omid Colindres MD~ Signed [facility] Work Phone: 1(269) 315-568006-09-[address] [facility] Medical Records Department [address] [place] [address] H&P Exam - Hospitalist 08/07/24 1507 MR#: [id number] Acct: [id number] Name: RICHI HU Rep #:[id number] : 1955 69 From: Seb Cortes DO PCP: Dr. Omid Colindres MD Status:ADM I N Location: [facility] [id number] HPI - General General Date of Admission: 08/07/24 Date of Service: 08/07/24 Chief Complaint: Shortness of breath, right leg redness/pain HPI Narrative RICHI HU, is a 69 M who presents to the emergency room at [facility] with complaints of shortness of breath particularly [...] received IV clindamycin. Labs will be monitored. [facility] Medical History (Updated 08/07/24 @ 14:02 by [...] Hives Verified 08/07/24 11:09 Antibiotics) Family History (Reviewed 07/22/24 @ 16:16 by Taylor Patel MACHINE APPLICATOR CEMENTER, MACHINE APPLICATOR CEMENTER-C) Father Cancer glioblastoma Mother No problems noted. [...] 76.2 H, Lymph % (Auto) 14.0 L, [place] % (Auto) 8.6, Eos % (Auto) 0.5, [...] IMPRESSION: No acute process detected. Reading Location: [facility] Chest X-Ray 08/07/24 12:12 IMPRESSION: No Acute Findings. Moderate cardiomegaly. Reading Location: [facility] Assessment & Plan Assessment/Plan (1) Exertional dyspnea: PLAN: Plan 1. Right leg cellulitis-patient will be admitted to [facility], he will be given IV clindamycin [...] 75 minutes Charges/Coding Visit Charges Inpatient E&M: 27011 Init Hosp L3 08/08/24 0831 Cosigner Signature (if applicable): CC: Dr. Seb Cortes DO; Dr. Omid Colindres MD~ Signed [facility]06-08-2025 Discharge summary Author [facility] Note Date/Time August 07, 2024 4:26p [facility] Medical Records Department [address] [place] [address] Emergency Department Summary 08/07/24 MR#: [id number] Acct: [id number] Name: RICHI HU Rep #:[id number] : 1955 69 From: David Stallworth DO PCP: Dr. Omid Colindres MD Status:ADM I N Location: [facility] [id number] HPI History of Present Illness Chief Complaint: [...] anticoagulated with Xarelto. He denies chest pain. [facility] Medical History (Reviewed 07/22/24 @ 16:16 by Taylor Patel MACHINE APPLICATOR CEMENTER, MACHINE APPLICATOR CEMENTER-C) Impacted cerumen of both ears Cholecystitis History [...] Hives Verified 08/07/24 11:09 Antibiotics) Family History (Reviewed 07/22/24 @ 16:16 by Taylor Patel MACHINE APPLICATOR CEMENTER, MACHINE APPLICATOR CEMENTER-C) Father Cancer glioblastoma Mother No problems noted. Surgical History (Reviewed 07/22/24 @ 16:16 by Taylor Patel MACHINE APPLICATOR CEMENTER, MACHINE APPLICATOR CEMENTER-C) History of cholecystectomy (12/31/21) History of radiofrequency [...] unremarkable. Troponin normal at 9 and BT MACHINE APPLICATOR CEMENTER was normal at 706. COVID flu and [...] 76.2 H Lymph % (Auto) 14.0 L [place] % (Auto) 8.6 Eos % (Auto) 0.5 [...] IMPRESSION: No acute process detected. Reading Location: [facility] Chest X-Ray 08/07/24 12:12 IMPRESSION: No Acute Findings. Moderate cardiomegaly. Reading Location: [facility] 1 view chest x-ray obtained interpreted by [...] Exertional dyspnea Disposition Disposition: Acute Care Hospital [facility] What to do if you have Problems For any increased pain, shortness of breath, bleeding, nausea or vomiting, chestpain, or any unexpected problems, contact your Primary Care Provider. Call [facility] ([phone]) or report to the closest Emergency Room. Call 911 if necessary. 08/07/24 1626 <Electronically signed by David Stallworth DO> Cosigner Signature (if applicable): CC: Dr. Omid Colindres MD ~ Signed [facility] Work Phone: 1(428) 135-807606-08-2025 Discharge summary [facility] Medical Records Department [address] [place] [address] Emergency Department Summary 08/07/24 MR#: [id number] Acct: [id number] Name: RICHI HU Rep #:[id number] : 1955 69 From: David Stallworth DO PCP: Dr. Omid Colindres MD Status:ADM I N Location: [place] [address] HPI History of Present Illness Chief Complaint: [...] is anticoagulated with Xarelto. He denies chestpain. [facility] Medical History (Reviewed 07/22/24 @ 16:16 by Taylor Patel MACHINE APPLICATOR CEMENTER, MACHINE APPLICATOR CEMENTER-C) Impacted cerumen of both ears Cholecystitis History [...] unremarkable. Troponin normal at 9 and BT MACHINE APPLICATOR CEMENTER was normal at 706. COVID flu and [...] 76.2 H Lymph % (Auto) 14.0 L [place] % (Auto) 8.6 Eos % (Auto) 0.5 [...] IMPRESSION: No acute process detected. Reading Location: [facility] Chest X-Ray 08/07/24 12:12 IMPRESSION: No Acute Findings. Moderate cardiomegaly. Reading Location: [facility] 1 view chest x-ray obtained interpreted by [...] Exertional dyspnea Disposition Disposition: Acute Care Hospital [facility] What to do if you have Problems For any increased pain, shortness of breath, bleeding, nausea or vomiting, chestpain, or any unexpected problems, contact your Primary Care Provider. Call [facility] ([phone]) or report tothe closest Emergency Room. Call 911 if necessary. 08/07/24 1626 Cosigner Signature (if applicable): CC: Dr. Omid Colindres MD ~ Signed [facility]06-08-2025 Radiology Diagnostic study note [facility] Imaging Services [address] [place], [place] [address] Brain/Head without Contrast MR#: [id number] Acct: [id number] Name: RICHI HU Rep #: [id number] : 1955 M 69 From: Pet danna Mcclain DO PCP: Dr. Omid Colindres MD Status: REG E R Study:Brain/Head without Contrast Date of Exa m: 08/07/24 Exam# [id number] Ordering Dr: Katherin Stallworth DO PROCEDURE: BRAIN/HEAD [...] IMPRESSION: No acute process detected. Reading Location: [facility] CC: Dr. Omid Colindres MD; Dr. David Stallworth DO ~ Security Controls Assessor: Signed [facility]06-08-2025 Radiology Diagnostic study note [facility] Imaging Services [address] [place], [place] [id number] Chest 1 View (Portable) MR#: [id number] Acct: [id number] Name: RICHI HU Rep #: [id number] : 1955 M 69 From: Debbie Velazquez MD PCP: Dr. Omid Colindres MD Status: REG E R Study:Chest 1 View (Portable) Date of Exam: 08/07/24 Exam# [id number] Ordering Dr: Katherin Stallworth DO PROCEDURE: CHEST [...] Colindres MD; Dr. David Stallworth, DO ~ Security Controls Assessor: Signed [facility]11-04-2022 NoteSend Summary: Discharge Summary Providers: Provider RoleProvider Name AttendingYan, Bebeto ReferringAliya, Jerrell ConsultingCriss, Geovanna Smart, Jerrell PrimaryGloria, Pcp Note Recipients: Unknown, PcpMD Discharge: Summary: Admission Date: .30-Dec-2021 10:35:00 Discharge [...] of : 1955 Admit Type: Inpatient Site: [place] [id number] Ethnicity: Unknown Race: Unknown Attending MD: Argelia Abad MD, [id number] Dec 31, 2021 Condition at Discharge: Satisfactory Disposition at Discharge: Home Vital Signs: T PRBPMAPSpO2 [id number]% Date/Time01/03 12: 12: 12: 12: 12: 12:00 Range(35.8C - 37.5C ) (56 - 74 ) (17 - 22 ) (109 - 124 )/ (51 - 66 ) (78 - 81 ) (93% - 98% ) As of 03-Jan-2022 09:00:00, patient is on 0 L/min of oxygen via CPAP. Highest temp of 37.5 C was recorded at 01/03 4:00 Date: Weight/Scale Type:Height: 30-Dec-2021 11:30631.3 kg / fdm907.5 cm Physical Exam: Constitutional: Well developed, awake/alert/oriented [...] Xarelto Diastolic CHF, HLD/ HTN transferred from [facility] with chief complaint of abdominal pain. [...] [place] Reason for Referral: (more content not included[place] [place] NoteHistory of Present Illness: Admission Reason: abdominal pain HPI: RICHI HU is a 66 year old Male with a past medical history of afib Xarelto Diastolic CHF, HLD/ HTN transferred from [facility] with chief complaint of abdominal pain. [...] this patient. Objective: Objective Information: T PRBPMAPSpO2 [id number]% Date/Time12/30 10: 10: 10: 10: 10: 10:45 [...] on HOLD for poss (more content not included)...[facility] note* Diagnosis Onset Date Resolution Status Admit Date Atrial fibrillation/flutter December 25, 2020 chronic July 19, 2024 10:32am Central sleep apnea associated with atrial fibrillation chronic July 19, 2024 10:32am Chronic diastolic (congestive) heart failure chronic July 012024 10:32am Essential (primary) hypertension chronic July 19, 2024 10:32am History of radiofrequency ablation procedure for cardiac arrhythmia November 29, 2020 resolved June 10:32am [facility] [employer] Work Phone: 1(853) 320-523910-26-2021 Evaluation note* Diagnosis Onset Date Resolution Status [...] 12:56pm Exertional dyspnea acute August 072024 12:56pm [facility] Work Phone: 1(912) 157-688010-26-2021 Evaluation note* Diagnosis Onset Date Resolution Status [...] arrhythmia November 29, 2020 resolved July 10:34am [facility] [employer] Work Phone: 1(205) 478-416110-26-2021 Evaluation note* Diagnosis Onset Date Resolution Status [...] leg, right inactive August 16, 2024 10:34am [facility] Work Phone: Evaluation noteNo assessment information available [facility] Work Phone: evaluation note* Diagnosis Onset Date Resolution Status Essential (primary) hypertension chronic Paroxysmal atrial fibrillation chronic [facility] Work Phone: evaluation note* Diagnosis Onset Date Resolution Status Dyspnea acute Chronic diastolic (congestive) heart failure chronic Essential (primary) hypertension chronic Paroxysmal atrial fibrillation chronic [facility] Work Phone: Evaluation note* Diagnosis Onset Date Resolution Status Dyspnea acute Chronic diastolic (congestive) heart failure chronic Essential (primary) hypertension chronic Paroxysmal atrial fibrillation chronic Impacted cerumen of both ears acute [facility] Work Phone: Evaluation note* Diagnosis Multinodular goiter- Primary Nontoxic multinodular goiter [facility] Diagnosis Multinodular goiter- Primary Nontoxic multinodular goiter [facility] Diagnosis Multinodular goiter Nontoxic multinodular goiter [facility] Diagnosis Multinodular goiter- Primary Nontoxic multinodular goiter [facility]* Electrophysiology Location: None Selected [employer] Work Phone: Reason for visit Narrative* Auth/Cert (Routine) Specialty Diagnoses / Procedures Referred By Urvashi t Referred To Contact Diagnoses Multinodular goiter Multinodular goiter [E04.2] Procedures BIOPSY THYROID PERCUTANEOUS CORE NEEDLE BIOPSY THYROID [facility] Radiology [address] [place] [address] Referral ID Status Reason Start Date Expiration Date Visits Re quested Visits Authorized [id number] 1 1 [facility] Summary Purpose Family History No Family History Records Found Relationship Condition Age at Onset Recorded Date/T lalo father Malignant neoplasm Unknown Advance Directives No Advanced Directives Records Found Advance Directive Response Recorded Date/ Time Advance Directives No December 25, 2020 10:23am Living Will No December 30 12:09am Power of Engineer Exhauster No December 30, 2021 12:09am Advance Directive Response Recorded Date/ Time Advance Directives No December 25, 2020 9:23am Living Will No December 29 11:09pm Power of Engineer Exhauster No December 29, 2021 11:09pm Advance Directive Response Recorded Date/ Time Advance Directives No January 10:34am Advance Directive Response Recorded Date/ Time Do you have a Healthcare Power of Engineer Exhauster? No August 07, 2024 11:25am Advance Directives No January 10:34am Advance Directive Response Recorded Date/ Time Do you have a Healthcare Power of Engineer Exhauster? Yes August 07, 2024 1:58pm Advance Directives [...] Cellulitis August 07, 2024 3:07p m Cellulitis Chelsey 9th, 2025 7:28p m Cellulitis August 09, 2024 7:09 pm Cellulitis August 10, 2024 12:0 6pm S/P [facility] 6/10 EDEMA August 16, 2024 10:3 4am Reason [...] 16, 2024 10:3 4am Atrial fibrillation/flutter August 16 025 10:34am Central sleep apnea associated with [...] Cellulitis August 10, 2024 12:0 6pm S/P [facility] /10 EDEMA August 16, 2024 10:3 4am [...] 2024 12:56 pm Atrial fibrillation/flutter August 16, 2 025 10:34am [...] Amb Documentation August 26, 2024 9:07 am Chief Complaint Admit Date 6 M [...] Amb Documentation August 26, 2024 9:07 am Amb Documentation September 06, 2024 8:11a m LYMPHEDEMA. PT HAS RX September 15, 2024 2: 00pm Chief Complaint Admit Date 6 M FU July 19, 2024 10:32 am CELLULITIS August 07, 2024 12:56 pm Cellulitis August 07, 2024 3:07p m Cellulitis August 08, 2024 7:28p m Cellulitis Chelsey 10th, 2025 7:09 pm Cellulitis August 10, 2024 12:0 6pm S/P [facility] 6/10 EDEMA August 16, 2024 10:3 4am OTHER SPECIFIED SOFT TISSUE DISORDERS Ju ne 2024 1:11pm RLE EDEMA August 16, 2024 1:32 pm DYSPNEA, UNSPECIFIED August 25, 2024 1:0 3pm Amb Documentation August 26, 2024 9:07 am Amb Documentation September 06, 2024 8:11a m LYMPHEDEMA. PT HAS RX September 15, 2024 2: 00pm THYROID NODULE September 28, 2024 12:5 2pm Additional Source Comments (unrecognized sect ion and content) No Status Records FoundNo Status Records FoundNo Status Records FoundNo Status Records FoundNo Status Records FoundNo Status Records FoundNo Status Records Found INFORMATION SOURCE (unrecogn ized section and content) DATE CREATED AUTHOR 05/08/2020 [facility] ([place]) DATE CREATED AUTHOR AUTHOR'S ORGANIZ ATION 04/07/2022 [facility] DATE CREATED AUTHOR AUTHOR'S ORGANIZ ATION 06/07/2022 [facility] DATE CREATED AUTHOR AUTHOR'S ORGANIZ ATION 11/17/2024 [facility] DATE CREATED AUTHOR AUTHOR'S ORGANIZ ATION 11/20/2024 [facility] DATE CREATED AUTHOR AUTHOR'S ORGANIZ ATION 11/23/2024 [facility] DATE CREATED AUTHOR AUTHOR'S ORGANIZ ATION 11/24/2024 [facility] Goals (unrecognized section and content) Goals may [...] 2024 End: July 19, 2024 Taylor Patel MACHINE APPLICATOR CEMENTER, MACHINE APPLICATOR CEMENTER-C Attending Provider Active Start: July 19, 2024 [...] August 07, 2024 Dr. Seb Cortes , Admit Provider Active S tart: August 07, 2024 Dr. eSb Cortes DO Attending Provider Active Start: August 07, 2024 Team Status: Inactive Member Role Status Dates Dr. Omid Colindres MD Primary Care Provider Active Start: August 07, 2024 End: August 10, 2024 Dr. David Stlalworth DO Referring Provider Active S tart: August 07, 2024 End: August 10, 2024 Dr. David Stallworth DO Emergency Provider Active S tart: August 07, 2024 End: August 10, 2024 Dr. Seb Cortes DO Admit Provider Active S tart: August 07, 2024 End: August 10, 2024 Dr. Seb Cortes DO Attending Provider [...] Start: August 07, 2024 Dr. Seb Cortes DO Other Provider Active S tart: August 07, 2024 Team Status: Active Member Role Status Dates Dr. Omid Colindres MD Primary Care Provider Active Start: August 08, 2024 Dr. David Stallworth DO Referring Provider Active S tart: August 08, 2024 Dr. David Stallworth DO Emergency Provider Active S tart: August 08, 2024 Dr. Seb Tereletsky , DO Admit Provider Active S tart: [...] August 10, 2024 Dr. David Stallworth , Emergency Provider Active S tart: August 10, 2024 Dr. Seb Cortes , Admit Provider Active S tart: August 10, 2024 Dr. Seb Cortes DO Attending Provider Active Start: August 10, 2024 Dr. Seb Cortes , Other Provider Active S tart: August 10, 2024 Team Status: Inactive Member Role Status Dates Dr. Omid Colindres MD Primary Care Provider Active Start: August 16, 2024 End: August 16, 2024 Dr. Omid Colindres MD Referring Provider Active Start: August 16, 2024 End: August 16, 2024 Taylor Patel MACHINE APPLICATOR CEMENTER, MACHINE APPLICATOR CEMENTER-C Attending Provider Active Start: August 16, 2024 End: August 16, 2024 Team Status: Active Member Role Status Dates Dr. Omid Colindres MD Primary Care Provider Active Start: August 16, 2024 Taylor Patel MACHINE APPLICATOR CEMENTER, MACHINE APPLICATOR CEMENTER-C Attending Provider Active Start: August 16, 2024 Taylor Patel MACHINE APPLICATOR CEMENTER, MACHINE APPLICATOR CEMENTER-C Referring Provider Active Start: August 16, 2024 [...] 2024 End: August 16, 2024 Taylor Patel MACHINE APPLICATOR CEMENTER, MACHINE APPLICATOR CEMENTER-C Attending Provider Active Start: August 16, 2024 End: August 16, 2024 Taylor Patel MACHINE APPLICATOR CEMENTER, MACHINE APPLICATOR CEMENTER-C Referring Provider Active Start: August 16, 2024 End: August 16, 2024 Team Status: Active Member Role/Relationship Status Dates Dr. Omid Colindres MD Primary Care Provider Active Team Status: Inactive Member Role/Relationship Status Dates Dr. Tiarra Bravo MD Referring Provider Active Start: July 19, 2024 End: July 19, 2024 Taylor Patel MACHINE APPLICATOR CEMENTER, MACHINE APPLICATOR CEMENTER-C Attending Provider Active Start: July 19, 2024 End: July 19, 2024 Dr. Omid Colindres MD Primary Care Provider Active Start: July 19, 2024 End: July 19, 2024 Team Status: Inactive Member Role/Relationship Status Dates Dr. Omid oClindres MD Primary Care Provider Active Start: August 07, 2024 End: August 10, 2024 Dr. David Stallworth , Referring Provider Active S tart: August 07, 2024 End: August 10, 2024 Dr. David Stallworth , DO Emergency Provider Active S tart: August 07, 2024 End: August 10, 2024 Dr. Seb Cortes , Admit Provider Active S tart: August 07, 2024 End: August 10, 2024 Dr. Seb Cortes DO Attending Provider Active Start: August 07, 2024 End: August 10, 2024 Team Status: Active Member Role/Relationship Status Dates Dr. Omid Colindres MD Primary Care Provider Active Start: August 07, 2024 Dr. David Stallworth DO Emergency Provider Active S tart: August 07, 2024 Dr. Seb Cortes , Admit Provider Active S tart: August 07, 2024 Dr. Seb Cortes DO Attending Provider Active Start: August 07, 2024 Dr. Seb Cortes DO Other Provider Active S tart: August 07, 2024 Team Status: Active Member Role/Relationship Status Dates Dr. Omid Colindres MD Primary Care Provider Active Start: August 08, 2024 Dr. David Stallworth DO Emergency Provider Active S tart: August 08, 2024 Dr. Seb Cortes , Admit Provider Active S tart: August 08, 2024 Dr. Seb Cortes DO Attending Provider Active Start: August 08, 2024 Dr. Seb Cortes DO Other Provider Active S tart: August 08, 2024 Team Status: Active Member Role/Relationship Status Dates Dr. Omid Colindres MD Primary Care Provider Active Start: August 09, 2024 Dr. David Stallworth DO Emergency Provider Active S tart: August 09, 2024 Dr. Seb Cortes , Admit Provider Active S tart: August 09, 2024 Dr. Seb Cortes DO Attending Provider Active Start: August 09, 2024 Dr. Seb Cortes , Other Provider Active S tart: August 09, 2024 Team Status: Active Member Role/Relationship Status Dates Dr. Omid Colindres MD Primary Care Provider Active Start: August 10, 2024 Dr. David Stallworth , DO Emergency Provider Active S tart: August 10, 2024 Dr. Seb Cortes , DO Admit Provider Active S tart: August 10, 2024 Dr. Seb Cortes DO Attending Provider Active Start: August 10, 2024 Dr. Seb Cortes , DO Other Provider Active S tart: August 10, 2024 Team Status: Inactive Member Role/Relationship Status Dates Dr. Omid Colindres MD Primary Care Provider Active Start: August 16, 2024 End: August 16, 2024 Dr. Omid Colindres MD Referring Provider Active Start: August 16, 2024 End: August 16, 2024 Taylor Patel MACHINE APPLICATOR CEMENTER, MACHINE APPLICATOR CEMENTER-C Attending Provider Active Start: August 16, 2024 End: August 16, 2024 Team Status: Inactive Member Role/Relationship Status Dates Dr. Omid Colindres MD Primary Care Provider Active Start: August 16, 2024 End: August 16, 2024 Taylor Patel MACHINE APPLICATOR CEMENTER, MACHINE APPLICATOR CEMENTER-C Attending Provider Active Start: August 16, 2024 End: August 16, 2024 Taylor Patel MACHINE APPLICATOR CEMENTER, MACHINE APPLICATOR CEMENTER-C Referring Provider Active Start: August 16, 2024 End: August 16, 2024 Team Status: Inactive Member Role/Relationship Status Dates Dr. Omid Colindrse MD Primary Care Provider Active Start: August [...] 2024 End: August 25, 2024 Taylor Patel MACHINE APPLICATOR CEMENTER, MACHINE APPLICATOR CEMENTER-C Attending Provider Active Start: August 25, 2024 End: August 25, 2024 Taylor Patel MACHINE APPLICATOR CEMENTER, MACHINE APPLICATOR CEMENTER-C Referring Provider Active Start: August 25, 2024 End: August 25, 2024 Team Status: Active Member Role/Relationship Status Dates Dr. Omid Colindres MD Primary Care Provider Active Start: August 25, 2024 Dr. Terell Shore MD Attending Provider Active S tart: August 25, 2024 Team Status: Active Member Role/Relationship Status Dates Dr. Omid Colindres MD Primary Care Provider Active Start: August 26, 2024 Taylor Patel MACHINE APPLICATOR CEMENTER, MACHINE APPLICATOR CEMENTER-C Attending Provider Active Start: August 26, 2024 Team Status: Active Member Role/Relationship Status Dates Dr. Leonor Aldrich MD Primary Care Provider Active Team Status: Active Member Role/Relationship Status Dates Dr. Leonor Aldrich MD Primary Care Provider Active Start: September 06, 2024 Taylor Patel MACHINE APPLICATOR CEMENTER, MACHINE APPLICATOR CEMENTER-C Attending Provider Active Start: September 06, 2024 Team Status: Active Member Role/Relationship Status Dates Dr. Leonor Aldrich MD Primary Care Provider Active Start: September 15, 2024 Dr. Leonor Aldrich MD Attending Provider Active Start: September 15, 2024 Dr. Leonor Aldrich MD Referring Provider Active Start: September 15, 2024 Team Status: Inactive Member Role/Relationship Status Dates Dr. Leonor Aldrich MD Primary Care Provider Active Start: September 21, 2024 End: September 21, 2024 Dr. Leonor Aldrich MD Attending Provider Active Start: September 21, 2024 End: September 21, 2024 Dr. Leonor Aldrich MD Referring Provider Active Start: September 21, 2024 End: September 21, 2024 Team Status: Inactive Member Role/Relationship Status Dates Dr. Leonor Aldrich MD Primary Care Provider Active Start: September 28, 2024 End: September 28, 2024 Dr. Leonor Aldrich MD Attending Provider Active Start: September 28, 2024 End: September 28, 2024 Dr. Leonor Aldrich MD Referring Provider Active Start: September 28, 2024 End: September 28, 2024 Industrial Laborer Relationship Specialty Start Date End Date Leonor Aldrich MD [address] [place] [address] PCP - General Family Medicine 11/15/24 Source Comments (unrecognize d section and content) In the event this informatio n is protected by the Federal Confidentiality of Alcohol and Drug Abuse Patient Records regulations: The Federal rules restrict any use of the information to criminally investigate or prosecute any alcohol or drug abuse patient.[facility] the event this information is protected by the Federal Confidentiality of Alcohol and Drug Abuse Patient Records regulations: The Federal rules restrict any use of the information to criminally investigate or prosecute any alcohol or drug abuse patient.[facility] the event this information is protected by the Federal Confidentiality of Alcohol and Drug Abuse Patient Records regulations: The Federal rules restrict any use of the information to criminally investigate or prosecute any alcohol or drug abuse patient.[facility] the event this information is protected by the Federal Confidentiality of Alcohol and Drug Abuse Patient Records regulations: The Federal rules restrict any use of the information to criminally investigate or prosecute any alcohol or drug abuse patient.[facility] the event this information is protected by the Federal Confidentiality of Alcohol and Drug Abuse Patient Records regulations: The Federal rules restrict any use of the information to criminally investigate or prosecute any alcohol or drug abuse patient.[facility] Reason for Visit (unrecogniz ed section and content) Reason Comments Thyroid Nodule Sent per PCP Reason Comments Appointment Pt at [facility] in [place] right now with no apt Reason Comments Follow Up Thyroid bx, done in IR PRN Active and Recently Administ ered Medications (unrecognized section and content) Medication Order 11/06/2024 11/07/2024 11/08/2024 lidocaine (PF) 10 mg/mL (1 %) injection (XYLOCAINE) (CANCELED) SUBCUTANEOUS, X (OR/PROCEDURE) PRN, Starting on Thu11/08/24 at 1156, Until Thu11/08/24 at 1211, Intraprocedure 1156 (Given - Provid er: Joe Waters MD, MD - Comment: Left Thyroid)1205 (Given - Provider: Joe Waters MD, MD) FOR RECORDS PERTAINING TO PATIENTS WHO ARE [...] BE BASED ON THE PRIMARY CLINICAL RECORDS. [employer] [facility]. provides no warranty or guarantee of the accuracy or completeness of information in this document.
[2024-11-25 13:23] LABS: Anion Gap 15 (5-15); BUN 25 mg/dL (4-19); BUN/Creat Ratio 27.9 RATIO (10-20); Calcium,Total 9.5 mg/dL (7.6-11.0); Carbon Dioxide 22.8 mmol/L (21.0-32.0); Chloride 99 mmol/L (98-108); Glucose 87 mg/dL (70-99); Potassium 4.1 mmol/L (3.3-5.1)
== END | disposition home or self-care (01) ==
LOC: LAB 11:47
PROVIDERS: PCP Family Medicine; Referring Provider Nurse Practitioner Gerontology; Visit Provider Nurse Practitioner Gerontology
DX: I48.91 Unspecified atrial fibrillation (principal)
CPT/HCPCS: 36415; 80048

== ENCOUNTER → 2024-12-02 | Outpatient (CLI) | payer OTHER, SELFPAY ==
[2024-12-02 15:13] LABS: Hematocrit 44.6 % (40-54); Hemoglobin 15.2 g/dL (13.0-16.5); Immature Granulocytes Count 0.020 X10^3/uL (0.0-0.0); Mean Corp Hgb Conc 34.1 g/dL (32-36); Mean Corpuscular Volume 93.1 fL (80-94); Mean Platelet Vol. 9.6 fl (6.2-12.0); NRBC Flagged by Analyzer 0 % (0-5); Platelet Count 209 K/mm3 (150-450); RBC Distribution Width CV 13.2 % (11.6-14.6); RBC Distribution Width SD 45.2 fl (35.1-43.9); Red Blood Count 4.79 M/mm3 (4.6-6.2); White Blood Count 7.4 K/mm3 (4.4-11.0)
[2024-12-02 16:00] LABS: Anion Gap 13 (5-15); BUN 20 mg/dL (4-19); BUN/Creat Ratio 23.7 RATIO (10-20); Calcium,Total 9.0 mg/dL (7.6-11.0); Carbon Dioxide 24.6 mmol/L (21.0-32.0); Chloride 98 mmol/L (98-108); Cholesterol 145 mg/dL (<=200); Glucose 116 mg/dL (70-99); Low Density Lipoprotein Calc. 90 mg/dL; Magnesium 2.4 mg/dL (1.5-2.2); Potassium 3.4 mmol/L (3.3-5.1); Triglycerides 104 mg/dL; Very Low Density Lipoprotein 21 mg/dL (5-40); Vitamin D,25 Hydroxy 68.8 ng/mL (30-100); cholesterol:hdl ratio screen 4.24
== END | disposition home or self-care (01) ==
LOC: MFPLAB 11:50
PROVIDERS: PCP Family Medicine; Visit Provider Nurse Practitioner Gerontology
DX: I48.91 Unspecified atrial fibrillation (principal); I11.0 Hypertensive heart disease with heart failure; I50.32 Chronic diastolic (congestive) heart failure; E55.9 Vitamin D deficiency, unspecified; E04.1 Nontoxic single thyroid nodule; R73.01 Impaired fasting glucose
CPT/HCPCS: 36415; 80048; 80061; 82306; 83036; 83735; 84439; 84443; 85025; 86376; 86800

== ENCOUNTER 2024-12-19 11:20 | Day surgery (SDC) | payer OTHER, SELFPAY ==
[2024-12-16 08:35] VITALS: BMI 52.5
[2024-12-19 12:25] LABS: Potassium 4.4 mmol/L (3.3-5.1)
--- NOTE | 2024-12-19 13:25 | PCM.OP.PRO2 ---
Procedures Pulmonary Pulmonary Procedures /Diagnostic Testin Con Sedation Bedside Procedural Bedside Procedure Information Date of Procedure: 12/19/24 Description of procedure: CONSCIOUS SEDATION REPORT DATE OF SERVICE: December 19, 2024 BRIEF HISTORY OF PRESENT ILLNESS: The patient is a 69-year-old male who presented to [facility] to undergo an elective outpatient cardioversion due to underlying atrial fibrillation. The patient did undergo a prior cardioversion in January 2024. The patient denied any prior anesthetic complications. He does have a known history of obstructive sleep apnea and has been compliant with the use of nocturnal PAP therapy. The patient is systemically anticoagulated on Xarelto. Ejection fraction was noted to be normal on echocardiogram in July 2024. PHYSICAL EXAMINATION: VITAL SIGNS: Reviewed and were acceptable. GENERAL: The patient is an obese male, in no apparent distress, speaking in full sentences. HEENT: Normocephalic, atraumatic. Mucous membranes are moist and pink. Good mouth opening noted. Trachea is midline. Good neck mobility. CHEST: S1, S2 irregularly irregular. No murmurs, rubs or gallops were noted. LUNGS: Clear to auscultation bilaterally without appreciable wheezes, rales or rhonchi. ABDOMEN: Soft, nontender, nondistended. Positive bowel sounds. EXTREMITIES: There is no clubbing or cyanosis. Lower extremity edema is present. ASA Class: II DESCRIPTION OF PROCEDURE: After confirmation of informed consent, the patient's anesthesia plan was reviewed in detail. Propofol was chosen. Risks and benefits were reviewed and the patient agreed to proceed. At 1301, the patient was given 50 mg of propofol of propofol. The patient achieved an appropriate level of sedation and was given a 360 joule synchronized cardioversion by Dr. Shore at the bedside. Although the patient was transiently in normal sinus rhythm after the cardioversion, the patient relapsed back into atrial fibrillation. Therefore, he was medicated once again with 50 mg of propofol. After achieving an appropriate level of sedation once again, a second cardioversion attempt at 360 J was undertaken. This was successful in achieving normal sinus rhythm. The patient was monitored until 1325, at which he they reached his baseline mental status and function. The patient tolerated the procedure well. COMPLICATIONS: None ESTIMATED BLOOD LOSS: None RECOMMENDATIONS: Okay to recover in usual fashion.
--- NOTE | 2024-12-19 18:13 | PRO.PCM_ITS ---
Bedside Procedural Bedside Procedure Information Date of Procedure: 12/19/24 Pre-Procedure Diagnosis: Atrial fibrillation Post-Procedure Diagnosis: Atrial fibrillation Procedure Performed:: DC cardioversion svp research and strategic analysis: No Procedure Time Out: :01 Procedure Start Time: :04 Procedure Stop Time: :30 Special Medications: Intravenous propofol 50 mg x 2 Description of procedure: Patient was brought to the cardiac catheterization lab in the postabsorptive nonsedated state. Informed consent was obtained. Anterior-posterior pads were applied. The patient was seen by Dr. Gibson of the critical care division. 50 mg intravenous propofol was initially administered and 360 J of synchronized DC cardioversion energy were applied with prompt reversal to sinus rhythm. It appeared that this maintained sinus rhythm for approximately 10 minutes. The patient reverted back into an atrial flutter rhythm. The patient was then administered another 50 mg of intravenous propofol and additional 360 J of synchronized biphasic DC cardioversion energy were applied with prompt reversal to sinus rhythm which maintained. Procedure findings: Successful DC cardioversion from atrial fibrillation flutter to sinus rhythm. Follow-up as per office protocol and EP protocol. Complications Complications: No
== END 2024-12-19 14:17 | disposition home or self-care (01) ==
PROVIDERS: PCP Family Medicine; Referring Provider Internal Medicine Cardiovascular Disease; Visit Provider Internal Medicine Cardiovascular Disease
DX: I48.0 Paroxysmal atrial fibrillation (principal); I50.32 Chronic diastolic (congestive) heart failure; I11.0 Hypertensive heart disease with heart failure; Z79.01 Long term (current) use of anticoagulants
CPT/HCPCS: 36415; 84132; 92960; 93005

== ENCOUNTER 2025-01-12 10:30 | Outpatient (CLI) | payer OTHER, SELFPAY ==
[2025-01-12 10:34] LABS: Mucous, Urine 0 SEEN /hpf (<or=2+)
[2025-01-12 12:21] LABS: Color, Urine Yellow (Yellow); Glucose, Dipstick 1000 mg/dl (Normal); Ketone-Dipstick Negative (Negative); Leukocyte Esterase-Dipstick Negative /ul (Negative); Nitrite-Dipstick Negative (Negative); Occult Blood-Urine 10 /ul (Negative); Protein-Dipstick 30 mg/dl (Negative); Specific Gravity, Urine 1.015 (1.002-1.030); Urine Bilirubin Dipstick Negative (Negative)
[2025-01-12 12:21] LABS: Hematocrit 43.5 % (40-54); Hemoglobin 14.5 g/dL (13.0-16.5); Immature Granulocytes Count 0.020 X10^3/uL (0.0-0.0); Mean Corp Hgb Conc 33.3 g/dL (32-36); Mean Corpuscular Volume 94.2 fL (80-94); Mean Platelet Vol. 9.6 fl (6.2-12.0); NRBC Flagged by Analyzer 0 % (0-5); Platelet Count 225 K/mm3 (150-450); RBC Distribution Width CV 14.0 % (11.6-14.6); RBC Distribution Width SD 47.8 fl (35.1-43.9); Red Blood Count 4.62 M/mm3 (4.6-6.2); White Blood Count 6.8 K/mm3 (4.4-11.0)
[2025-01-12 12:30] LABS: Red Blood Cells-Urine 0-5 SEEN /hpf (0-5); Squamous Epithelial Cells - UA 0-5 SEEN /hpf (0-5)
[2025-01-12 13:15] LABS: AST(SGOT) 23 U/L (<=37); Alanine Aminotransfer ALT/SGPT 19 U/L (<=46); Albumin, Serum 3.7 g/dL (3.4-4.8); Alkaline Phosphatase 91 U/L (40-129); Anion Gap 11 (5-15); BUN 16 mg/dL (4-19); BUN/Creat Ratio 16.3 RATIO (10-20); Calcium,Total 9.3 mg/dL (7.6-11.0); Carbon Dioxide 24.0 mmol/L (21.0-32.0); Chloride 102 mmol/L (98-108); Cholesterol 146 mg/dL (<=200); Globulin 2.8 g/dL (2.2-4.2); Glucose 116 mg/dL (70-99); Low Density Lipoprotein Calc. 87 mg/dL; Magnesium 2.3 mg/dL (1.5-2.2); Potassium 3.8 mmol/L (3.3-5.1); Triglycerides 170 mg/dL; Very Low Density Lipoprotein 34 mg/dL (5-40); Vitamin D,25 Hydroxy 70.0 ng/mL (30-100); cholesterol:hdl ratio screen 4.90
== END 2025-01-12 23:59 | disposition home or self-care (01) ==
LOC: MFPLAB 10:31
PROVIDERS: PCP Family Medicine; Visit Provider Family Medicine
DX: I48.91 Unspecified atrial fibrillation (principal); E04.1 Nontoxic single thyroid nodule; R73.01 Impaired fasting glucose
CPT/HCPCS: 36415; 80053; 80061; 81001; 82306; 83036; 83735; 84439; 84443; 85025; 86376; 86800